=== PATIENT | female | born 2000 | race Caucasian/White ===

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

== ENCOUNTER 2020-01-01 06:45 | Emergency (ER) | payer MEDICAID, SELFPAY ==
[2020-01-01 06:49] VITALS: BP 145/77; PULSE 100; RESP 18; TEMP 37; O2SAT 100
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
== END 2020-01-01 07:11 | disposition home or self-care (01) ==
PROVIDERS: Emergency Provider Emergency Medicine
DX: S39.012A Strain of muscle, fascia and tendon of lower back, initial encounter (principal); V49.9XXA Car occupant (driver) (passenger) injured in unspecified traffic accident, initial encounter
CPT/HCPCS: 99283

== ENCOUNTER 2020-01-06 00:56 | Outpatient (CLI) | payer MEDICAID, SELFPAY ==
--- NOTE | 2020-01-06 06:15 | DI.US_ITS ---
EXAM: US PELVIS TRANSVAGINAL CLINICAL HISTORY: pelvic pain,r10.2 TECHNIQUE: Transabdominal and transvaginal imaging was performed using standard protocol. COMPARISON: No exams were available for comparison FINDINGS: KIDNEYS: Kidneys are symmetric in size. No evidence of renal calculi. No evidence of hydronephrosis. No renal mass or cyst identified. UTERUS: Anteverted. 7.1 x 2.7 x 5.5 cm Endometrium: 7 millimeters. A small amount of fluid is noted within the endometrial cavity. Myometrium: Unremarkable. Cervix: Unremarkable. OVARIES: Right: Cyst or mass: None. Left: Cyst or mass: Involuting corpus luteum cyst. DOPPLER: Color: Symmetric and uniform flow to both ovaries. No hyperemia. Duplex: Normal ovarian arterial waveforms visualized. CUL-DE-SAC: Free fluid: None. IMPRESSION: 1. Normal-appearing uterus. Small amount of fluid in the endometrial cavity. 2. Unremarkable bilateral ovaries. DATA REPOSITORY:
== END 2020-01-06 01:16 ==
PROVIDERS: Visit Provider Nurse Practitioner Women's Health
DX: R10.2 Pelvic and perineal pain (principal)
CPT/HCPCS: 76830; 76856

== ENCOUNTER 2023-11-17 15:51 | Observation (INO) | payer MEDICAID, SELFPAY ==
[2023-11-17 15:56] VITALS: BP 136/89; PULSE 95; RESP 18; TEMP 36.3; O2SAT 98
--- NOTE | 2023-11-17 16:09 | ED.GENADUL_ITS ---
Discharge Plan Disposition Patient Disposition: Admit to [facility] Condition: Stable Discharge Details Chief Complaint: POSTER Clinical Impression: Pelvic cramping, Currently Primary Care Provider: [facility] ED Provider: Benito Camilo [place] Meds and New Rx's Prescriptions: No Action Xulane 150-35 mcg/24 hr patch weekly 1 patch transdermal QWEEK Qty: 9 5RF Rx Instructions: apply once weekly for 3 weeks of a 4-week cycle naproxen 500 mg tablet 500 mg PO BID certirizine 10 mg 10 mg PO DAILY escitalopram oxalate 10 mg tablet 10 mg PO DAILY Qty: 30 3RF omeprazole 40 mg capsule,delayed release(DR/EC) 40 mg PO DAILY ondansetron 4 mg tablet,disintegrating 4 mg PO Q8H PRN (Reason: nausea and vomiting) Qty: 30 0RF acetaminophen [Tylenol] 325 mg Tablet 650 mg PO DIRECTED PRN ibuprofen 200 mg Tablet 400 mg PO PRN PRN cyclobenzaprine 10 mg tablet 10 mg PO TID PRN (Reason: muscle spasm) Qty: 20 0RF HPI General Mode of arrival: ambulatory . Date/Time Provider Initiated Documentation: 11/17/23 15:55 . Limitations to Documentation: no limitations . Information obtained by: patient . History of Present Illness 23 year old F presents to the emergency department with the chief complaint of mucous from vagina, described as moderate, Patient started experiencing this hour(s) (1) and it has been now resolved. No relieving factors improve symptom(s), No exacerbating factors reported . Patient notes no other symptoms.. Patient did receive the following treatments prior to arrival, none Related Data Home Medications ?Medication ?Instructions ?Recorded ?Confirmed certirizine 10 mg PO DAILY 11/26/18 12/31/19 naproxen 500 mg tablet 500 mg PO BID 11/26/18 12/31/19 acetaminophen 325 mg tablet 650 mg PO DIRECTED PRN 01/09/19 12/31/19 (Tylenol) ibuprofen 200 mg tablet 400 mg PO PRN PRN 03/27/19 12/31/19 escitalopram oxalate 10 mg tablet 10 mg PO DAILY #30 tabs 04/02/19 12/31/19 omeprazole 40 mg capsule,delayed 40 mg PO DAILY 05/07/19 12/31/19 release ondansetron 4 mg disintegrating 4 mg PO Q8H PRN nausea and 11/22/19 12/31/19 tablet vomiting #30 tabs cyclobenzaprine 10 mg tablet 10 mg PO TID PRN muscle spasm #20 01/01/20 tabs norelgestromin 150 mcg-e.estradiol 1 patch transdermal QWEEK #9 ea 02/05/20 02/05/20 35 mcg/24 hr weekly transderm patch (Xulane) Previous Rx's ?Medication ?Instructions ?Recorded escitalopram oxalate 10 mg tablet 10 mg PO DAILY #30 tabs 04/02/19 ondansetron 4 mg disintegrating 4 mg PO Q8H PRN nausea and 11/22/19 tablet vomiting #30 tabs cyclobenzaprine 10 mg tablet 10 mg PO TID PRN muscle spasm #20 01/01/20 tabs norelgestromin 150 mcg-e.estradiol 1 patch transdermal QWEEK #9 ea 02/05/20 35 mcg/24 hr weekly transderm patch (Xulane) Allergies Allergy/AdvReac Type Severity Reaction Status Date / Time latex Allergy Intermediate HIVES Verified 11/17/23 16:07 Sulfa (Sulfonamide Allergy Intermediate Hives Verified 11/17/23 16:07 Antibiotics) jalapenos Allergy Severe Unknown Uncoded 11/17/23 16:07 almonds Allergy Intermediate lips swell Uncoded 11/17/23 16:07 General Stated Complaint: POSTER MANI: 3 Review of Systems All systems reviewed & are unremarkable except as noted in HPI and below Constitutional Constitutional: Denies chills, Denies fever(s) and Denies weakness Cardiovascular Cardiovascular: Denies chest pain and Denies dyspnea Respiratory Respiratory: Denies cough and Denies dyspnea Gastrointestinal Gastrointestinal: Denies nausea and Denies vomiting Musculoskeletal Musculoskeletal: Denies joint swelling Neurologic Neurologic: Denies weakness Exam Const General: no acute distress Orientation: alert HENMT Head: normal to inspection Ears: external ears normal General nose exam: external nose normal Mouth: moist mucous membranes Eyes General: appearance normal, both eyes and all related structures Neck Neck: normal visual inspection Resp Effort & Inspection: normal respiratory effort and able to speak in complete sentences Cardio Rate: regular rate Skin General skin exam: no rashes or lesions noted Neuro General: patient alert and patient oriented x3 Extrem General: normal to inspection Psych Mental Status: mental status grossly normal Course Vital Signs Vital signs: Vital Signs Temperature 36.3 C L 08/30/24 15:56 Pulse 95 H 11/17/23 15:56 Respiratory Rate 18 11/17/23 15:56 Blood Pressure 136/89 11/17/23 15:56 Pulse Oximetry 98 11/17/23 15:56 Temperature 36.3 C L 11/17/23 15:56 Temperature Source Oral 11/17/23 15:56 Pulse 95 H 11/17/23 15:56 Respiratory Rate 18 11/17/23 15:56 Blood Pressure 136/89 11/17/23 15:56 Pulse Oximetry 98 11/17/23 15:56 Oxygen Delivery Method Room Air 11/17/23 15:56 Oxygen Flow Rate 0 11/17/23 15:56 Medical Decision Making 23-year-old female who states she is approximately 24 weeks and her due dates in February, recent moved here 2 weeks ago from [place] and does not have POSTER care here, comes in after she felt like a mucous plug came out of her vagina. She is also had some lower pelvic cramping. She denies any vaginal bleeding, otherwise feels well. She has no abdominal tenderness on bedside ultrasound has a live intrauterine with frequent movement of the baby. Unclear if this is labor, consult with Dr. Munroe from POSTER and plan of care with admit to labor and delivery for monitoring. Differential Diagnosis Differential Diagnosis: labor Quality:SDOH Health Related Social Needs: No Data to Display PFSH All Active Problems (Updated 11/17/23 @ 16:14 by Benito Camilo MD) Currently (Acute) Pelvic cramping (Acute) Anxiety (Chronic 04/20/16) restart SSRI. Depressed mood (Chronic 04/20/16) 04/02/19. 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 Increased symptoms with polyarthralgia spring 2017. Had f/u with rheum at [facility]. ? AIDAN vs RA. 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 (BMI) of 95th to 99th percentile for age in pediatric patient (Acute 09/15/11) Medical History (Updated 11/17/23 @ 16:14 by Benito Camilo MD) 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 Heart disease Father Essential hypertension Mental disorder DEPRESSION OR ANXIETY Myocardial infarction Social History Smoking/Tobacco Use Status: Current every day Tobacco Type: cigarettes Smoking packs per day: 1 Smoking cigarettes per day: 20.0 Tobacco: How many years used: 9 Quit status: considering quitting Smoking risk assessment performed?: Yes Alcohol Intake: current Alcohol Intake frequency: a few times a week Drug use: Daily Substance use type: marijuana Do you feel safe at home: Yes Do you feel safe in your relationship?: Yes History History 1 Para 0 Hx # Term Pregnancies 0 Multiple births Hx # Pregnancies Ectopic pregnancies AB induced Hx Number of Living Children AB spontaneous Past Pregnancies Del. Date GA/Weeks # Preg Succ Route Wgt Sex Labor Lgth Anesth esia Location [facility] 03/27/19 Delivery Date: 03/27/19 Last Updated by: Yari Villalobos LPN incomplete spontaneous AB with hemorrhage
[2023-11-17 16:33] VITALS: BP 127/63; PULSE 93
[2023-11-17 16:45] VITALS: BP 127/63; PULSE 88; RESP 16; TEMP 36.5; O2SAT 99
--- NOTE | 2023-11-17 17:31 | PGE_ITS ---
Date of Service Date of service: 11/17/23 Time of Service: 17:31 Assessment and Plan Assessment and plan (1) Currently : Status: Acute Qualifiers: Weeks of gestation: 24 weeks Qualified Code(s): Z3A.24 - 24 weeks gestation of (2) Vaginal discharge during : Status: Acute Assessment and plan: + Hyphae on wet mount. Vag path screen pending. I recommended that the pt use OTC Monistat 7. I will notify her if addtional medication is needed once vag path screen results are available. Qualifiers: Trimester: second trimester Qualified Code(s): O26.892 - Other specified related conditions, second trimester; N89.8 - Other specified noninflammatory disorders of vagina (3) Short interval between pregnancies affecting , antepartum: Status: Acute Assessment and plan: 13mo between pLTCS and JOSELUIS. (4) Hx of section: Status: Chronic Assessment and plan: for twin gestation at 37w. Single layer closure. Pt will be scheduled to establish care with MD service. Subjective Subjective Interval history since last seen: Vaginal discharge beginning today. Yellow, non-malodorous. Pt was concerned it was possible labor. Had been treated during this for vaginal candidiasis. Relocated to the area from [place] 2 weeks ago and has not yet established OB provider. She was initially eval in ED and sent to . course significant for closely spaced pregnancies with anticipated 13mo between deliveries. Exam Narrative Exam Narrative: L3 female who presents for eval of yellow tinged vaginal discharge. She identifies it as looking like a mucus plug. No contractions, mild uterine stretching. No vaginal bleeding. She is accompanied by her partner. Const General: no acute distress Nutritional Appearance: obese Orientation: alert, awake and oriented x3 Resp Effort & Inspection: normal respiratory effort External Female Exam: normal external appearance Speculum Exam - Vagina: normal appearance of the vagina, normal vaginal discharge (hyphae on wet mount. ROM+ and vaginal path screen obtained. results pending), not erythematous and No vaginal bleeding Speculum Exam - Cervix: No cervical os open Bimanual Exam- Vagina & Uterus: normal bimanual exam Bimanual Exam- Adnexa, other: non-tender OB/External & Speculum: external exam normal, No cervical os open, No vaginal bleeding and vaginal discharge Manual OB Exam: dilated (none), effaced 0%, station high and other (posterior and firm cervix) Skin General skin exam: no rashes or lesions noted Extrem General: normal to inspection Psych Appearance: grossly normal Mental Status: mental status grossly normal Speech and Movement: speech and movement normal Mood: congruent mood Affect: normal affect Attitude: cooperative Thought Process: normal Thought Content: normal Insight: insight good Judgment: judgment good Objective Last Vital Signs Temp 97.7 F 11/17/23 16:45 Pulse 88 11/17/23 16:45 Resp 16 11/17/23 16:45 BP 127/63 11/17/23 16:45 Pulse Ox 99 11/17/23 16:45 Time Spent with Patient Time Spent with Patient: <25 minutes Time was spent: preparing to see the patient(eg.review tests), obtaining and/or reviewing separately otained hiistory, ordering medications,tests, procedures, referring, communicating with other health critical care clinical nurse specialist and indepentently interpreting results
[2023-11-17 18:06] LABS: ROM Plus Negative
--- NOTE | 2023-11-21 08:19 | DSE_ITS ---
Date of service: 11/17/23 Time of Service: 18:00 DS: Diagnosis Discharge Diagnosis (1) Currently : Status: Acute (2) Vaginal discharge during : Status: Acute (3) Short interval between pregnancies affecting , antepartum: Status: Acute (4) Hx of section: Discharge Plan Disposition Patient Disposition: Home Condition: Good Discharge Details Reason For Visit: ? labor Admit Date/Time: 11/17/23 16:15 Admit Provider: Heather Munroe Attending Provider: Heather Munroe [facility] Course: L3 female who presented for eval of yellow tinged vaginal discharge. She identified it as looking like a mucus plug. No contractions, mild uterine stretching. No vaginal bleeding. ROM plus neg, Vag path screen neg. Pt recently relocated to [place] from [place]. Has not yet initiated care. Home Meds and New Rx's Prescriptions: No Action Xulane 150-35 mcg/24 hr patch weekly 1 patch transdermal QWEEK Qty: 9 5RF Rx Instructions: apply once weekly for 3 weeks of a 4-week cycle naproxen 500 mg tablet 500 mg PO BID certirizine 10 mg 10 mg PO DAILY escitalopram oxalate 10 mg tablet 10 mg PO DAILY Qty: 30 3RF omeprazole 40 mg capsule,delayed release(DR/EC) 40 mg PO DAILY ondansetron 4 mg tablet,disintegrating 4 mg PO Q8H PRN (Reason: nausea and vomiting) Qty: 30 0RF acetaminophen [Tylenol] 325 mg Tablet 650 mg PO DIRECTED PRN ibuprofen 200 mg Tablet 400 mg PO PRN PRN cyclobenzaprine 10 mg tablet 10 mg PO TID PRN (Reason: muscle spasm) Qty: 20 0RF Discharge Instructions Additional Instructions: Call [facility] on 11/21/23 to make an appt to establish care. Activity:: Activity as Tolerated Equipment/Supplies:: No Equipment Needed Diet:: As Tolerated Discharge Orders Discharge Orders: Discharge Order (Routine); Ordered 11/17/23 Ordered By: Heather Munroe Discharge Data Discharge Date/Time-TO BE ENTERED AT DEPARTURE: 11/17/23 18:45 DS: Summary Time Spent with Patient providing and/or coordinating discharge services: Greater than 30 minutes Status at Discharge Functional status at discharge: independent ambulation Overall status at discharge: patient is back to baseline Mental Status: mental status grossly normal Speech and Movement: speech and movement normal Mood: congruent mood Affect: normal affect Quality:SDOH Health Related Social Needs: No Data to Display Exam Narrative Exam Narrative: L3 female who presents for eval of yellow tinged vaginal discharge. She identifies it as looking like a mucus plug. No contractions, mild uterine s tretching. No vaginal bleeding. She is accompanied by her partner. Const General: no acute distress Nutritional Appearance: obese Orientation: alert, awake and oriented x3 Resp Effort & Inspection: normal respiratory effort External Female Exam: normal external appearance Speculum Exam - Vagina: normal appearance of the vagina, normal vaginal discharge (hyphae on wet mount. ROM+ and vaginal path screen obtained. results pending), not erythematous and No vaginal bleeding Speculum Exam - Cervix: No cervical os open Bimanual Exam- Vagina & Uterus: normal bimanual exam Bimanual Exam- Adnexa, other: non-tender OB/External & Speculum: external exam normal, No cervical os open, No vaginal bleeding and vaginal discharge Manual OB Exam: dilated (none), effaced 0%, station high and other (posterior and firm cervix) Skin General skin exam: no rashes or lesions noted Extrem General: normal to inspection Psych Appearance: grossly normal Mental Status: mental status grossly normal Speech and Movement: speech and movement normal Mood: congruent mood Affect: normal affect Attitude: cooperative Thought Process: normal Thought Content: normal Insight: insight good Judgment: judgment good DS: Data Vitals/I&O Vitals and I&O: Vital Signs Temperature 97.7 F 11/17/23 16:45 Temperature Source Oral 11/17/23 15:56 Pulse 88 11/17/23 16:45 Respiratory Rate 16 11/17/23 16:45 Respiratory Effort Normal, Non-Labored 11/17/23 16:22 Blood Pressure 127/63 11/17/23 16:45 Pulse Oximetry 99 11/17/23 16:45 Oxygen Delivery Method Room Air 11/17/23 16:45 Oxygen Flow Rate 0 11/17/23 16:45 Pain Level 0 11/17/23 16:45 Data Completed and Pending Completed studies during hospitalization [Text1]: Vag path screen: Neg x3. ROMplus: Neg. PFSH All Active Problems (Updated 11/21/23 @ 08:35 by Heather Munroe MD) Short interval between pregnancies affecting , antepartum (Acute) 13mo interval after pLTCS for twin gestation. Vaginal discharge during (Acute) Currently (Acute) JOSELUIS 03/03/25. Pelvic cramping (Acute) Anxiety (Chronic 04/20/16) restart SSRI. Depressed mood (Chronic 04/20/16) 04/02/19. 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 Increased symptoms with polyarthralgia spring 2017. Had f/u with rheum at [facility] [place] [place]. ? AIDAN vs RA. 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 pLTCS for twin gestation at 37w. Single layer closure. History of tonsillectomy and adenoidectomy 2018 Arthroscopy L knee - effusion, bloody 08/28, 11/28, & 1 more R knee 2011, Family History Mother Mental disorder depression Asthma Sister Asthma Other Diabetes many materanl relatives Hyperlipidemia maternal cousin Mental disorder maternal relatvies with depresssion Attention deficit hyperactivity disorder maternal uncles Other Diabetes many paternal relatives Mental disorder pat side with depression Grandfather , [place] at age 44. Heart disease Father Essential hypertension Mental disorder DEPRESSION OR ANXIETY Myocardial infarction Social History Smoking/Tobacco Use Status: Current every day Tobacco Type: cigarettes Smoking packs per day: 1 Smoking cigarettes per day: 20.0 Tobacco: How many years used: 9 Quit status: considering quitting Smoking risk assessment performed?: Yes Alcohol Intake: current Alcohol Intake frequency: a few times a week Drug use: Daily Substance use type: marijuana Housing: apartment Do you feel safe at home: Yes Do you feel safe in your relationship?: Yes Additional Social history: just moved from [place] History History 1 Para 0 Hx # Term Pregnancies 0 Multiple births Hx # Pregnancies Ectopic pregnancies AB induced Hx Number of Living Children AB spontaneous Past Pregnancies Del. Date GA/Weeks # Preg Succ Route Wgt Sex Labor Lgth Anesth esia Location Prov Complic 03/27/19 Delivery Date: 03/27/19 Last Updated by: Yari Villalobos LPN incomplete spontaneous AB with hemorrhage Time Spent with Patient Time Spent with Patient: <45 minutes Time was spent: preparing to see the patient(eg.review tests), obtaining and/or reviewing separately otained hiistory, ordering medications,tests, procedures, counseling the patient and care coordination
== END 2023-11-17 18:45 | disposition home or self-care (01) ==
LOC: ER 16:28 → OBS 16:30
PROVIDERS: Admitting Provider Obstetrics & Gynecology Gynecology; Emergency Provider Emergency Medicine; Visit Provider Obstetrics & Gynecology Gynecology
DX: O26.892 Other specified pregnancy related conditions, second trimester (principal); Z3A.24 24 weeks gestation of pregnancy; N89.8 Other specified noninflammatory disorders of vagina; Z98.891 History of uterine scar from previous surgery; O09.892 Supervision of other high risk pregnancies, second trimester; O99.212 Obesity complicating pregnancy, second trimester; E66.9 Obesity, unspecified; Z79.899 Other long term (current) drug therapy
CPT/HCPCS: 84112; 59025; 87480; 87510; 87660

== ENCOUNTER 2023-12-15 02:17 | Outpatient (CLI) | payer MEDICAID, SELFPAY ==
--- OUTSIDE RECORDS SUMMARY | 2023-12-15 02:22 | XMS_ITS | Encounter Summary ---
Author Organization [facility] [place] [address] Care Team Providers Care Check Writer Name Role Phone None Primary Care Provider Unavailabl e Reason for Referral * Consultation (Urgent) - Authorized Specialty Diagnoses / Procedures Referred By Jack sherman Referred To Contact Obstetrics and Gynecology Diagnoses Morbid (severe) obesity due to excess calories Supervision of other high risk pregnancies, unspecified trimester History of uterine scar from previous surgery (new MFM Form w/level II order) detail morph SHEN Procedures US Requested Winsome Pugh MD [address] [place] [address] [place] [address] [facility] Consulting Solution Director [address] [place] [address] Referral ID Status Reason Start Date Expiration Date Visits Requested Visits Authorized [id number] Authorized Consult, Test & Treat PCP Updated and/or Approved 12/08/2023 06/06/2024 6 6 Encounter Details Date Type Department Care Team (Late st Contact Info) Description 12/12/2023 Transcribe Orders eDH Incoming Referrals [phone] Winsome Pugh MD [address] [place] [address] [address] [place], [place] [id number] Morbid (severe) obesity due to excess calories; Supervision of other high risk pregnancies, unspecified trimester; History of uterine scar from previous surgery Social History Tobacco Use Types Packs/Day Years Used Date Smoking Tobacco: Every Day Cigarettes Smokeless Tobacco: Never Comments:smokes a couple cig arettes a day Alcohol Use Standard Drinks/Week Comments No 0 (1 standard drink = 0.6 oz pur e alcohol) Sex and Gender Information Value Date Recorded Sex Assigned at Not on file Gender Identity Not on file Sexual Orientation Not on file documented as of this encounter Plan of Treatment Scheduled Referrals Name Type Priority Associated Diagnoses Orde r Schedule Referral to Maternal Medicine Outpatient Referral Urgent Morbid (severe) obesity due to excess calories Supervision of other high risk pregnancies, unspecified trimester History of uterine scar from previous surgery Ordered: 12/12/2023 documented as of this encounter Visit Diagnoses Diagnosis Morbid (severe) obesity due to excess calories Supervision of other high risk pregnancies, unspecified trimester History of uterine scar from previous surgery documented in this encounter Care Teams Check Writer Relationship Specialty Start Date End Date None None PCP - General 12/12/23 documented as of this encounter
--- OUTSIDE RECORDS SUMMARY | 2023-12-15 02:22 | XMS_ITS | Encounter Summary ---
Author Organization [facility] [place] [address] Care Team Providers Care Informatics Nurse Name Role Phone Mauri Villar MD Primary Care Provider [phone] Reason for Visit * Reason Onset Date Comments Other 09/05/2017 Lab Results Encounter Details Date Type Department Care Team (Late st Contact Info) Description 09/05/2017 Telephone [place] [id number] Zane Chaves RN Other (Lab Results) Social History Tobacco Use Types Packs/Day Years Used Date Smoking Tobacco: Every Day Smokeless Tobacco: Never Comments:smokes a couple cig arettes a day Alcohol Use Standard Drinks/Week Comments No 0 (1 standard drink = 0.6 oz pur e alcohol) Sex and Gender Information Value Date Recorded Sex Assigned at Not on file Gender Identity Not on file Sexual Orientation Not on file documented as of this encounter Miscellaneous Notes * Telephone Encounter - Zane Chaves RN - 09/06/2017 8:12 AM EDT I discussed labs with Dr. Thorne and he would like a Urine Culture to make sure Samreen does not have a UTI. Called Lab and they are not able to send for culture as specimen has been disposed of. Called Mom Winsome to advise a urine specimen is needed, she would like sent to [facility]. Will order and send. Mom also reports that Samreen had a bad reaction to the Diclofenac so she has stopped taking it. She had N/V and HTN. She was evaluated in the ER. Symptoms have resolved since stopping Diclofenac. * Telephone Encounter - Zane Chaves RN - 09/05/2017 1:46 PM EDT Mom Winsome calls for lab results. BERNY positive with 1:320 titer, urine is also abnormal. Will ask Dr. Thorne for his recommendations when calling Mom back. documented in this encounter Plan of Treatment Not on file documented as of this encounter Visit Diagnoses Diagnosis AIDAN (juvenile idiopathic arthritis)- Primary Other specified inflammatory polyarthropathies documented in this encounter Care Teams Informatics Nurse Relationship Specialty Start Date End Date Mauri Villar MD [address] [place] [address] [place] [address] PCP - General Pediatrics 07/28/17 12/11/23 documented as of this encounter
--- OUTSIDE RECORDS SUMMARY | 2023-12-15 02:22 | XMS_ITS | Encounter Summary ---
Author [place] [address] Care Team Providers Care Consumer Banker Name Role Phone Ros Bean MD Primary Care Provider [phone] Encounter Details Date Type Department Care Team (Late st Contact Info) Description 01/28/2016 [place] [address] Cole Moreno MD [facility] [place] [address] Pain in left wrist Social History Tobacco Use Types Packs/Day Years Used Date Smoking Tobacco: Passive Smo ke Exposure - Never Smoker Smokeless Tobacco: Never Comments:Adults smoke outsid e Alcohol Use Standard Drinks/Week Comments No 0 (1 standard drink = 0.6 oz pur e alcohol) Sex and Gender Information Value Date Recorded Sex Assigned at Not on file Gender Identity Not on file Sexual Orientation Not on file documented as of this encounter Plan of Treatment Not on file documented as of this encounter Visit Diagnoses Diagnosis Pain in left wrist Pain in joint, forearm documented in this encounter Care Teams Consumer Banker Relationship Specialty Start Date End Date Ros Bean MD PCP - General Pediatrics 07/17/15 07/27/17 documented as of this encounter
--- OUTSIDE RECORDS SUMMARY | 2023-12-15 02:22 | XMS_ITS | Encounter Summary ---
Author Organization [facility] Address [facility] [place] [address] Care Team Providers Care Hired Help Name Role Phone Mauri Villar MD Primary Care Provider [phone] Encounter Details Date Type Department Care Team (Latest Contact Info) Description 08/01/2018 2:17 PM EDT - 08/01/2018 11:59 PM EDT Hospital Encounter XRay at [address] [place] [address] Benito Zhang MD [facility] [place] [address] Chronic pain of left knee Discharge Disposition: Home Social History Tobacco Use Types Packs/Day Years [...] on file documented as of this encounter Medications at Time of Discharge Medication Sig Dispensed Refills Start Date End Date sertraline (ZOLOFT) 100 mg TabletIndications:Effu candido of knee joint, left Take 2 tablets by mouth daily. 90 tablet 3 12/01/2017 methylphenidate HCl (CONCERTA) 27 mg Tablet Extended Rel 24 hrIndications:Effusion of knee joint, left Take 1 tablet by mouth every morning. 90 tablet 12/01/2017 naproxen (EC NAPROSYN) 500 mg Tablet, Delayed Release (E.C.)Indications:Effu candido of knee joint, left Take 1 tablet by mouth 2 times daily (with meals). 60 tablet 3 12/01/2017 predniSONE (DELTASONE) 5 mg TabletIndications:AIDAN (juvenile idiopathic arthritis) Take 2 tablets by mouth daily. 60 tablet 3 07/28/2017 FLUoxetine (PROZAC) 10 mg Capsule Take 10 mg by mouth daily. traZODone (DESYREL) 50 mg Tablet Take 50 mg by mouth nightly. meloxicam (MOBIC) 15 mg TabletIndications:AIDAN (juvenile idiopathic arthritis) Take 1 tablet by mouth daily. 30 tablet 12 09/02/2015 etonogestrel (NEXPLANON) 68 mg Implant by Subdermal route Continuous (Device). 12/02/2019 documented as of this encounter Plan of Treatment Not on file documented as of this encounter Procedures Procedure Name Priority Date/Time Associated Diagnosis Comments XR KNEE 4 OR MORE VIEWS LEFT Routine 08/01/2018 2:35 PM EDT Chronic pain of left knee documented in this encounter Results * XR Knee 4 or more views Left (08/01/2018 2:35 PM EDT) Anatomical Region Laterality Modality Knee Left Digital Radiogra phy Impressions 08/01/2018 3:02 PM EDT Slight lateral tibial subluxation. No hardware related complication. Thank you for letting us participate in the care of this patient. For questions regarding this report, please contact the number below. ? Narrative 08/01/2018 3:02 PM EDT EXAMINATION: XR KNEE 4 OR MORE VIEWS LEFT CLINICAL HISTORY: left knee pain TECHNIQUE: 4 views LEFT knee COMPARISON: AP view that includes the left knee dated 01/12/2012. FINDINGS: There are two threaded screws running frontal back through the proximal left tibia just below the level of the anterior tibial tubercle. No fracture is seen. On the AP and PA Savage views, there is several millimeters of lateral subluxation of the proximal tibia relative to the distal femur. There is a small osteophyte at the lateral articular surface of the distal femur. No definite joint effusion. Procedure Note Sahil Guy MD - 08/01/2018 EXAMINATION: XR KNEE 4 OR MORE VIEWS LEFT CLINICAL HISTORY: left knee pain TECHNIQUE: 4 views LEFT knee COMPARISON: AP view that includes the left knee dated 01/12/2012. FINDINGS: There are two threaded screws running frontal back through the proximalleft tibia just below the level of the anterior tibial tubercle. No fracture isseen. On the AP and PA Savage views, there is several millimeters oflateral subluxation of the proximal tibia relative to the distal femur. There is asmall osteophyte at the lateral articular surface of the distal femur. Nodefinite joint effusion. IMPRESSION Slight lateral tibial subluxation. No hardware related complication. Thank you for letting us participate in the care of this patient. Forquestions regarding this report, please contact the number below. Benito Zhang MD IMG DX ORDERABLES documented in this encounter Visit Diagnoses Diagnosis Chronic pain of left knee Pain in joint, lower leg documented in this encounter Care Teams Hired Help Relationship Specialty Start Date End Date [place] [address] PCP - General Pediatrics 07/28/17 12/11/23 documented as of this encounter
--- OUTSIDE RECORDS SUMMARY | 2023-12-15 02:22 | XMS_ITS | Encounter Summary ---
Author Organization Pending [facility] To [facility] Address [facility] [place] [address] Care Team Providers Care Welder Assistant Name Role Phone Ros Bean MD Primary Care Provider [phone] Encounter Details Date Type Department Care Team (Latest Contact Info) Description 09/02/2015 2:52 PM EDT - 09/02/2015 11:59 PM EDT Hospital Encounter XRay at [address] [place] [address] Hema Thorne MD [facility] [place] [address] AIDAN (juvenile idiopathic arthritis) Discharge Disposition: Home Social History Tobacco Use [...] Sig Dispensed Refills Start Date End Date meloxicam (MOBIC) 15 mg TabletIndications:AIDAN (juvenile idiopathic arthritis) Take 1 tablet by mouth daily. 30 tablet 12 09/02/2015 human papillomavirus 4-valent, PF, (GARDASIL) 20-40-40-20 mcg/0.5 mL Suspension Once 12/18/2012 10/21/2015 norgestimate-ethinyl estradiol (SPRINTEC-28) 0.25-35 mg-mcg Tablet Daily 11/14/20142015 norelgestrom-ethinyl estradiol (XULANE) 150-35 mcg/24 hr Patch Weekly weekly 07/14/201507/01 acetaminophen (TYLENOL) 325 mg Tablet Take 2 tablets by mouth every 6 hours. 30 tablet 1 09/09/2014 07/01/2016 documented as of this encounter Plan of Treatment Not on file documented as of this encounter Procedures Procedure Name Priority Date/Time Associated Diagnosis Comments XR HANDS MIN 3 VIEWS BILAT Routine 09/02/2015 3:03 PM EDT AIDAN (juvenile idiopathic arthritis) documented in this encounter Results * XR Bilateral Hands Minimum 3 Views (09/02/2015 3:03 PM EDT) Anatomical Region Laterality Modality Hand Bilateral Digital Radiogra phy Impressions 09/02/2015 4:53 PM EDT The sclerotic collapsed lunate at the right wrist has an appearance consistent with lunatomalacia or Kienbock's disease. The presence of ulnar minus predisposes both the right and left wrist to this disorder. With the exception of diffuse soft tissue swelling, I do not see other evidence of juvenile idiopathic arthritis. Narrative 09/02/2015 4:53 PM EDT EXAMINATION: XR BILATERAL HANDS MINIMUM 3 VIEWS CLINICAL HISTORY: AIDAN right wrist pain TECHNIQUE: 4 views of the hands and wrists were acquired bilaterally. COMPARISON: None FINDINGS: There is ulnar minus configuration bilaterally associated with a mild degree of degenerative arthropathy. At the right wrist there is collapse and sclerosis of the lunate. The carpus is otherwise normal in appearance. No erosive disease is identified. The lunate at the left wrist is normal. On the lateral view there appears to be soft tissue prominence diffusely of the dorsum of the hand in a symmetric fashion bilaterally. It do not see focal soft tissue swelling. At the metacarpal phalangeal joints no joint space narrowing malalignment or erosive disease is identified. There is a solitary radial lucency at the base of the index proximal phalanx of the right hand. I believe this represents a small subchondral cyst. No definite erosive disease is apparent. At the interphalangeal joints alignment is normal. No erosive disease is seen. No periostitis. No acro osteolysis. Procedure Note Osman Mcallister MD - 09/02/2015 EXAMINATION: XR BILATERAL HANDS MINIMUM 3 VIEWS CLINICAL HISTORY: AIDAN right wrist pain TECHNIQUE: 4 views of the hands and wrists were acquired bilaterally. COMPARISON: None FINDINGS: There is ulnar minus configuration bilaterally associated with a milddegree of degenerative arthropathy. At the right wrist there is collapse and sclerosis of the lunate. Thecarpus is otherwise normal in appearance. No erosive disease is identified. Thelunate at the left wrist is normal. On the lateral view there appears to be soft tissue prominence diffuselyof the dorsum of the hand in a symmetric fashion bilaterally. It do not see focalsoft tissue swelling. At the metacarpal phalangeal joints no joint space narrowing malalignmentor erosive disease is identified. There is a solitary radial lucency at thebase of the index proximal phalanx of the right hand. I believe this represents asmall subchondral cyst. No definite erosive disease is apparent. At the interphalangeal joints alignment is normal. No erosive disease is seen. No periostitis. No acro osteolysis. IMPRESSION The sclerotic collapsed lunate at the right wrist has an appearanceconsistent with lunatomalacia or Kienbock's disease. The presence of ulnar minus predisposes both the right and left wrist to this disorder. With the exception of diffuse soft tissue swelling, I do not see otherevidence of juvenile idiopathic arthritis. Hema Thorne MD IMG DX ORDERABLES documented in this encounter Visit Diagnoses Diagnosis AIDAN (juvenile idiopathic arthritis) Other specified inflammatory polyarthropathies documented in this encounter Care Teams Welder Assistant Relationship Specialty Start Date End Date Ros Bean MD PCP - General Pediatrics 07/17/15 07/27/17 documented as of this encounter
--- OUTSIDE RECORDS SUMMARY | 2023-12-15 02:22 | XMS_ITS | Encounter Summary ---
Author Organization [facility] Address [facility] [place] [address] Care Team Providers Care Apparel Manager Name Role Phone Ros Bean MD Primary Care Provider [phone] Encounter Details Date Type Department Care Team (Late st Contact Info) Description 06/24/2016 [place] [address] Cole Moreno MD [facility] [place] [address] Pain in right wrist Social History Tobacco Use Types Packs/Day [...] on file documented as of this encounter Results * XR Wrist Complete Min 3 views Right (Generic) (07/01/2016 3:30 PM EDT) Anatomical Region Laterality Modality Right Digital Radiogra phy Impressions 07/01/2016 3:38 PM EDT 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 No definite new osseous findings. Narrative 07/01/2016 3:38 PM EDT EXAMINATION: XR WRIST COMPLETE MIN 3 VIEWS RIGHT (GENERIC) CLINICAL HISTORY: right wrist pain TECHNIQUE: 3 views of the right wrist. COMPARISON: 01/29/2016. FINDINGS: The osseous structures are unchanged in alignment. As before, the lunate is flattened, deformed, and sclerotic, consistent with Kienbock's disease no definite new osseous abnormality of the carpal bones is identified. Ulnar negative variance, as before. The other imaged osseous structures are not appreciably changed. Procedure Note Giovanna Bustamante MD - 07/01/2016 EXAMINATION: XR WRIST COMPLETE MIN 3 VIEWS RIGHT (GENERIC) CLINICAL HISTORY: right wrist pain TECHNIQUE: 3 views of the right wrist. COMPARISON: 01/29/2016. FINDINGS: The osseous structures are unchanged in alignment. As before,the lunate is flattened, deformed, and sclerotic, consistent with Kienbock'sdisease no definite new osseous abnormality of the carpal bones is identified.Ulnar negative variance, as before. The other imaged osseous structures arenot appreciably changed. 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 Nodefinite new osseous findings. Cole Moreno MD IMG DX ORDERABLES documented in this encounter Visit Diagnoses Diagnosis Pain in right wrist Pain in joint, forearm Pain in right wrist Pain in joint, forearm documented in this encounter Care Teams Apparel Manager Relationship Specialty Start Date End Date Ros Bean MD PCP - General Pediatrics 07/17/15 07/27/17 documented as of this encounter
--- OUTSIDE RECORDS SUMMARY | 2023-12-15 02:22 | XMS_ITS | Encounter Summary ---
Author Organization [facility] Address [facility] [address] [place] [id number] Care Team Providers Care County Assessor Name Role Phone Mauri Villar MD Primary Care Provider [phone] Reason for Referral * Consultation (Routine) - Specialty Diagnoses / Procedures Referred By Jack sherman Referred To Contact Diagnoses Effusion of knee joint, left Hema Thorne MD [facility] [place] [address] Referral ID Status Reason Start Date Expiration Date V isits Requested Visits Authorized [id number] Consult, Test & Treat 12/01/2017 2018 1 1 Reason for Visit * Reason Comments Follow-up Encounter Details Date Type Department Care Team (Latest Contact Info) Description 12/01/2017 1:00 PM EDT Office Visit Pediatric Rheumatology at [place] [phone] Hema Thorne MD [facility] [place] [address] Effusion of knee joint, left Social History Tobacco Use Types Packs/Day Years [...] on file documented as of this encounter Last Filed Vital Signs Vital Sign Reading Time Taken Comments Blood Pressure 122/67 12/01/2017 1:13 PM EDT Pulse 90 12/01/2017 1:13 PM EDT Temperature - - Respiratory Rate - - Oxygen Saturation - - Inhaled Oxygen Concentration - - Weight 93.9 kg (207 lb) 12/01/2017 1:13 PM EDT Height 160 cm (5' 3) 12/01/2017 1:13 PM EDT Body Mass Index 36.67 12/01/2017 1:13 PM EDT Body Mass Index Percentile 98.31% 12/01/2017 1:1 3 PM EDT Growth Chart: [facility] (Girls, 2- 20 Years) documented in this encounter Progress Notes * Hema Thorne MD - 12/01/2017 1:00 PM EDT Is a follow-up appointment for Samreen Martinez birthdate 2000 The patient is a 17-year-old female with a history of J I/A treated only with nonsteroidal anti-inflammatory drugs will have seen intermittently the last time in August at which time she had synovitis at the MCPs wrists elbows knees and ankles. I placed her on prednisone which was ineffective and then switched her to diclofenac diclofenac was not tolerated she developed hives hypertensionand she describes a panic attack currently she is on no nonsteroidal On exam she is healthy-appearing but overweight blood pressure is 122/67 her BMI probably 37-40 although not sure the scale is correct because according to it her weight dropped 17 pounds since her previous visit Her chest is clear heart exam is unremarkable her abdomen is obese her extremities she appears to have synovitis of her right wrist and both knees with swelling heat and tenderness Laboratory data was notable for positive BERNY at 1-320 negative ROSA M normal complements but her urineanalysis showed large white blood cells I repeat her urine with a culture GC and Chlamydia I put her on Naprosyn 500 twice daily enteric-coated and she will try to drink milk at the time she takes it all follow-up in 1 month documented in this encounter Plan of Treatment Pending Results Name Type Priority Associated Diagnoses Date /Time GC/Chlamydia (Leb/CGP) Urine Microbiology Routine Effusion of knee joint, left 12/01/2017 8:48 PM EDT Scheduled Referrals Name Type Priority Associated Diagnoses Orde r Schedule Referral to Hand Clinic Outpatient Referral Routine Effusion of knee joint, left Ordered: 12/01/2017 documented as of this encounter Visit Diagnoses Diagnosis Effusion of knee joint, left Effusion of lower leg joint documented in this encounter Care Teams County Assessor Relationship Specialty Start Date End Date Mauri Villar MD [address] [place] [address] PCP - General Pediatrics 07/28/17 12/11/23 documented as of this encounter
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
--- OUTSIDE RECORDS SUMMARY | 2023-12-15 02:22 | XMS_ITS | Encounter Summary ---
[place] [address] Care Team Providers Care Range Aide Name Role Phone Mauri Villar MD Primary Care Provider [phone] Reason for Referral * Diagnostic Test (Routine) - Closed Specialty Diagnoses / Procedures Referred By Jack sherman Referred To Contact Radiology Diagnoses Internal derangement of left knee Procedures MRI Knee wo Contrast Left (Generic) Benito Zhang MD [facility] [place] [address] [facility] [place] [address] Referral ID Status Reason Start Date Expiration Date V isits Requested Visits Authorized [id number] Closed Specialty Service Requested 08/01/2018 08/01/2019 1 1 Reason for Visit * Reason Comments Follow-up left knee pain, recu rrent patellar subluxation * Consultation (Routine) - Closed Specialty Diagnoses / Procedures Referred By Jack sherman Referred To Contact Orthopaedics Diagnoses PAIN LEFT KNEE, RECURRENT PATELLAR SUBLUXATION Mauri Villar MD [address] [place] [address] [place] [address] [facility] [address] [place] [phone] Referral ID Status Reason Start Date Expiration Date V isits Requested Visits Authorized [id number] Closed Consult, Test & Treat Connection Center 07/25/2018 07/25/2019 1 1 Encounter Details Date Type Department Care Team (Late st Contact Info) Description 08/01/2018 3:20 PM EDT Office [place] [phone] Clinic, Dr Zhang Team None Internal derangement of left knee Social History Tobacco Use Types Packs/Day Years [...] Sign Reading Time Taken Comments Blood Pressure 131/78 08/01/2018 3:33 PM EDT Pulse 78 08/01/2018 3:33 PM EDT Temperature - - Respiratory Rate - - Oxygen Saturation - - Inhaled Oxygen Concentration - - Weight 95.3 kg (210 lb) 08/01/2018 3:33 PM EDT m easured Height 160 cm (5' 3) 08/01/2018 3:33 PM EDT Body Mass Index 37.2 08/01/2018 3:33 PM EDT Body Mass Index Percentile 98.26% 08/01/2018 3:3 3 PM EDT Growth Chart: CDC (Girls, 2- 20 Years) documented in this encounter Progress Notes * Benito Zhang MD - 08/01/2018 3:20 PM EDT Subjective: Patient ID: Samreen Martinez is a 18 y.o. female. Chief Complaint Patient presents with ??? Follow-up left knee pain, recurrent patellar subluxation ?? Date of Surgery: 09/08/14 PROCEDURES PERFORMED: Left knee diagnostic arthroscopy, left knee Benito osteotomy with lateral release Date of surgery: 02/10/14 Surgery: Right tibia Benito osteotomy, repair of dislocating patella, knee arthroscopy for removal of loose body ?? Case Date: 02/13/2012 Procedure(s): RIGHT KNEE ARTHROSCOPY KNEE REMOVE LOOSE BODY ARTHROTOMY, KNEE WITH EXPLORATION REPAIR DISLOCATING PATELLA MICROFRACTURE TROCHLEA HPI Left knee is bothering her. Swollen a couple weeks ago. Lateral pain up to her hip. She is bothered by this. She has not had any recurrent dislocations. Patient Active Problem List Diagnosis Code ??? Effusion of knee joint, left M25.462 ??? Effusion of knee joint M25.469 ? ? R knee arthroscopy, microfracture & medial patellar realignment procedure 02/12 Vicente S83.003A ??? Knee pain, right M25.561 ??? 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 s/p left knee Benito osteotomy and lateral release 09/08/14 (Zhang) M22.02 ??? AIDAN (juvenile idiopathic arthritis) M08.90 ??? 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 Latex Hives ??? Unable To Find [Unclassified Drug] Anaphylaxis jalapeno ??? [place] Rash Rash/ lips swell ??? Diclofenac Nausea and hypertension ??? Sulfa (Sulfonamide Antibiotics) Rash Current Outpatient Medications on File Prior to Visit Medication Sig Dispense Refill ??? etonogestrel (NEXPLANON) 68 mg Implant by Subdermal route Continuous (Device). ??? sertraline (ZOLOFT) 100 mg Tablet Take [...] Reported on 08/01/2018) 60 tablet 3 ??? [DISCONTINUED] Diclofenac Sodium (VOLTAREN XR) 100 mg Tablet Sustained Release 24 hr Take 1 tablet by mouth daily. (Patient not taking: Reported on 12/01/2017) 30 tablet 3 ??? predniSONE (DELTASONE) 5 mg Tablet Take 2 tablets by mouth daily. (Patient not taking: Reportedon 12/01/2017) 60 tablet 3 ??? FLUoxetine (PROZAC) 10 mg Capsule Take 10 mg by mouth daily. ??? traZODone (DESYREL) 50 mg Tablet Take 50 mg by mouth nightly. ??? [DISCONTINUED] cetirizine (ZYRTEC) 10 mg Tablet Take 10 mg by mouth daily. ??? [DISCONTINUED] norgestimate-ethinyl estradiol (SPRINTEC, 28,) 0.25-35 mg-mcg Tablet Take 1 tablet by mouth daily. ??? meloxicam (MOBIC) 15 mg Tablet Take 1 tablet by mouth daily. (Patient not taking: Reported on 07/28/2017) 30 tablet 12 No current facility-administered medications on file prior to visit. Review of Systems General Health, Prior Treatments, PreExisting Condition, Health Habits, About You 08/01/2018 PROMIS-10 General Health Good PROMIS-10 Quality of Life Good PROMIS-10 Physical Health Good PROMIS-10 Mental Health Fair PROMIS-10 Social Activity Good PROMIS-10 Everyday Activities Mostly PROMIS-10 Pain 6 PROMIS-10 Fatigue Mild PROMIS-10 Social Roles Good PROMIS-10 Anxious or Depressed Sometimes PROMIS PHYSICAL SCORE (range 16-68) 44.9 PROMIS MENTAL SCORE (range 21-68) 41.1 Treatments Tried Heat and ice therapy, Physical therapy, Acetaminophen (e.g. Tylenol), Over the counter anti-inflammatory drugs (e.g Advil, Aspirin, Aleve), Prescribed anti-inflammatory drugs, Other injections or needle procedures, Prior surgery for this problem No flowsheet data found. No flowsheet data found. Objective: Physical Exam Musculoskeletal: Left knee: She exhibits no effusion. Blood pressure 131/78, pulse 78, height 160 cm (5' 3), weight 95.3 kg (210 lb). Left Knee Exam Tenderness The patient is experiencing tenderness in the lateral joint line (IT Band Tenderness). Range of Motion Extension: 0 Flexion: 140 Tests Varus: negative Valgus: negative Daniel: Anterior - negative Drawer: Anterior - negative Posterior - negative Patellar apprehension: negative Other Erythema: absent Scars: present Sensation: decreased Pulse: present Swelling: mild Effusion: no effusion present Imaging: fairly benign appearing knee studies. Assessment and Plan: LEFT KNEE PAIN Discussed her history and her findings Discussed chondral assessment through and MR. We will see her back after her MR. SHe has had severe chondral pathology since a young child. documented in this encounter Plan of Treatment Not on file documented as of this encounter Results * MRI Knee wo Contrast Left (Generic) (08/22/2018 8:23 AM EDT) Anatomical Region Laterality Modality Knee Left Magnetic Resonan ce Impressions 08/22/2018 9:45 AM EDT 1. ??No focal complication following Fulkersonosteotomy. The osteotomy has healed. 2. 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 3. ??At the level of the patient's femoral trochlear injury and subsequent microfracture the deformity is well-defined and appears to be filled with scar cartilage. No edema, cyst formation or other evidence of acute injury or complication is seen. I have personally reviewed the image(s) and the residents interpretation and agree with the findings, Osman Mcallister at 08/22/2018 9:45 AM Thank you for letting us participate in the care of this patient. For questions regarding this report, please contact the number below. ? Narrative 08/22/2018 9:45 AM EDT EXAMINATION: MRI KNEE WO CONTRAST LEFT (GENERIC) CLINICAL HISTORY: history of multiple knee surgeries with lateral femoral condyle lesion treated with microfracture. Previous tibial tubercle transfer. TECHNIQUE: Routine noncontrast MRI of the Left knee was performed. COMPARISON: Prior left knee MRI, the most recent dated 07/21/2014 FINDINGS: Postoperative changes status post Benito osteotomy. Susceptibility artifact related to hardware somewhat mars the examination. At the margins of the surgery however no fluid collection or edema is identified. The osteotomy has healed. The patellar tendon is normal in appearance. The TT-TG measures 1.4 cm The modified Insall-Salvati criteria ratio is normal. The appropriateness of this measurement however is uncertain given the tibial tuberosity repositioning. With the knee in an extended position, the patella articulates with the superior most margin of the femoral trochlea. As seen on the preoperative MRI the femoral trochlea is shallow and dysplastic. The lateral facet of the patella articulates directly at the lateral margin of the femoral surface. At this level there is focal deformity of the articular cartilage in the underlying bone consistent with the patient's known history of earlier cartilage injury and subsequent microfracture. The surgical defect appears well-defined and filled with intermediate signal intensity on T1-weighted images and mixed signal intensity on T2-weighted images. The appearance is consistent with scar cartilage show formation. There is an absence of edema in the adjacent bone marrow. No focal cleft of fluid or cyst is apparent. Within the lateral facet of the patella there is increased signal intensity on fluid sensitive sequences focally as seen on image 10 of series 11. The appearance is consistent with a focal area of cartilage injury. No large chondral defect is apparent. MEDIAL COMPARTMENT: The medial meniscus is intact. No focal chondral defects. LATERAL COMPARTMENT: Lateral meniscus is intact. There is a focal chondral defect along the weightbearing surface of the lateral femoral condyle with underlying osseous defect measuring approximately 7 mm. PATELLOFEMORAL COMPARTMENT: Focal chondral defect with underlying osseous defect along the lateral femoral condyle measuring approximately 1.3 cm. , which is within normal range. No full-thickness chondral defects along the patellar cartilage. Small partial-thickness chondral defect along the lateral patellar facet. Irregularity and thickening along the peripheral with areas of susceptibility artifact, likely representing postoperative changes. CRUCIATE LIGAMENTS: The ACL and PCL are intact. COLLATERAL LIGAMENTS: The MCL and lateral collateral ligament complex are intact. TENDONS: The quadriceps, patellar, popliteus, pes anserine tendons are intact. Procedure Note Osman Mclalister MD - 08/22/2018 EXAMINATION: MRI KNEE WO CONTRAST LEFT (GENERIC) CLINICAL HISTORY: history of multiple knee surgeries with lateralfemoral condyle lesion treated with microfracture. Previous tibial tubercletransfer. TECHNIQUE: Routine noncontrast MRI of the Left knee was performed. COMPARISON: Prior left knee MRI, the most recent dated 07/21/2014 FINDINGS: Postoperative changes status post Benito osteotomy. Susceptibilityartifact related to hardware somewhat mars the examination. At the margins of thesurgery however no fluid collection or edema is identified. The osteotomy hashealed. The patellar tendon is normal in appearance. The TT-TG measures 1.4 cm The modified Insall-Salvati criteria ratio is normal. The appropriatenessof this measurement however is uncertain given the tibial tuberosityrepositioning. With the knee in an extended position, the patella articulates with thesuperior most margin of the femoral trochlea. As seen on the preoperative MRI the femoral trochlea is shallow anddysplastic. The lateral facet of the patella articulates directly at the lateralmargin of the femoral surface. At this level there is focal deformity of thearticular cartilage in the underlying bone consistent with the patient's knownhistory of earlier cartilage injury and subsequent microfracture. The surgicaldefect appears well-defined and filled with intermediate signal intensity on T1-weighted images and mixed signal intensity on T2-weighted images. The appearance is consistent with scar cartilage show formation. There is an absence of edema in the adjacent bone marrow. No focal cleft of fluid or cyst is apparent. Within the lateral facet of the patella there is increased signalintensity on fluid sensitive sequences focally as seen on image 10 of series 11. The appearance is consistent with a focal area of cartilage injury. No large chondral defect is apparent. MEDIAL COMPARTMENT: The medial meniscus is intact. No focal chondraldefects. LATERAL COMPARTMENT: Lateral meniscus is intact. There is a focalchondral defect along the weightbearing surface of the lateral femoral condylewith underlying osseous defect measuring approximately 7 mm. PATELLOFEMORAL COMPARTMENT: Focal chondral defect with underlying osseousdefect along the lateral femoral condyle measuring approximately 1.3 cm. , whichis within normal range. No full-thickness chondral defects along thepatellar cartilage. Small partial-thickness chondral defect along the lateralpatellar facet. Irregularity and thickening along the peripheral with areas of susceptibility artifact, likely representing postoperative changes. CRUCIATE LIGAMENTS: The ACL and PCL are intact. COLLATERAL LIGAMENTS: The MCL and lateral collateral ligament complexare intact. TENDONS: The quadriceps, patellar, popliteus, pes anserine tendons areintact. IMPRESSION 1. No focal complication following Fulkersonosteotomy. The osteotomyhas healed. 2. 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 3. At the level of the patient's femoral trochlear injury andsubsequent microfracture the deformity is well-defined and appears to be filled withscar cartilage. No edema, cyst formation or other evidence of acute injury or complication is seen. I have personally reviewed the image(s) and the residents interpretationand agree with the findings, Osman Mcallister at 08/22/2018 9:45 AM Thank you for letting us participate in the care of this patient. Forquestions regarding this report, please contact the number below. Benito Zhang MD IMG MRI ORDERABLES documented in this encounter Visit Diagnoses Diagnosis Internal derangement of left knee Unspecified internal derangement of knee Internal derangement of left knee Unspecified internal derangement of knee documented in this encounter Care Teams Range Aide Relationship Specialty Start Date End Date Mauri Villar MD [address] [place] [address] PCP - General Pediatrics 07/28/17 12/11/23 documented as of this encounter
--- OUTSIDE RECORDS SUMMARY | 2023-12-15 02:22 | XMS_ITS | Encounter Summary ---
[facility] [place] [address] Care Team Providers Care Purchasing Agent Name Role Phone Mauri Villar MD Primary Care Provider [phone] Encounter Details Date Type Department Care Team (Late st Contact Info) Description 12/13/2019 [place] [address] Hema Duran Social History Tobacco Use Types Packs/Day Years [...] encounter Miscellaneous Notes * Telephone Encounter - Hema Duran - 12/13/2019 3:37 PM EDT New letter was sent with approval from Kayla Marin PA-C, per the patient's request via [employer] platform. * Telephone Encounter - Hema Duran - 12/13/2019 2:01 PM EDT Provider last seen by?Tania ?? What type of letter is needed? Return to work Return to work/school/sports, out of work/school/sports, other ?? If return to work, how many hours per day/week? 40 hrs/week ? What do you want your start date to be? 12/13/19 ? What restrictions do you need?PT would like return to work with no restrictions. ? 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 Fax ? To what address/fax#? [phone] ?? To whose attention? To Whom It May Concern documented in this encounter Plan of Treatment Not on file documented as of this encounter Visit Diagnoses Not on filedocumented in this encounter Care Teams Purchasing Agent Relationship Specialty Start Date End Date Mauri Villar MD [address] [facility] [place] [address] PCP - General Pediatrics 07/28/17 12/11/23 documented as of this encounter
--- OUTSIDE RECORDS SUMMARY | 2023-12-15 02:22 | XMS_ITS | Encounter Summary ---
Author Organization [facility] [place] [address] Care Team Providers Care Machinist General Name Role Phone Mauri Villar MD Primary Care Provider [phone] Reason for Visit * Reason Comments Follow-up * Consultation (Routine) - Closed Specialty Diagnoses / Procedures Referred By Contlorena t Referred To Contact Pediatric Rheumatology Diagnoses AIDAN needs f/u Mauri Villar MD [address] [place] [address] [place] [address] [facility] Rhe[facility] [address] [place] [id number] Referral ID Status Reason Start Date Expiration Date V isits Requested Visits Authorized [id number] Closed Consult, Test & Treat [facility] 06/07/2017 06/07/2018 1 1 Encounter Details Date Type Department Care Team (Latest Contact Info) Description 07/28/2017 9:30 AM EDT Office Visit [place] [address] Hema Thorne MD [facility] [place] [address] AIDAN (juvenile idiopathic arthritis) Social History Tobacco Use Types Packs/Day Years [...] Sign Reading Time Taken Comments Blood Pressure 141/85 07/28/2017 9:18 AM EDT Pulse 87 07/28/2017 9:18 AM EDT Temperature 36.2 ??C (97.1 ??F) 07/28/2017 9:18 AM ED T Respiratory Rate - - Oxygen Saturation - - Inhaled Oxygen Concentration - - Weight 103.2 kg (227 lb 9.6 oz) 07/28/2017 9:18 AM EDT Height 160 cm (5' 3) 07/28/2017 9:18 AM EDT Body Mass Index 40.32 07/28/2017 9:18 AM EDT Body Mass Index Percentile 99.38% 07/28/2017 9:1 8 AM EDT Growth Chart: [facility] (Girls, 2- 20 Years) documented in this encounter Progress Notes * Hema Thorne MD - 07/28/2017 9:30 AM EDT [facility] Patient is a 17-year-old female with a past history of juvenile rheumatoid arthritis was last seen approximately 2-1/2 years ago treated with nonsteroidal anti-inflammatory agents primarilywith knee disease the knee disease was treated with [address] Zhang in 2016 with which addressed patellar dislocation and that has been largely successful but intermittently over the last 2 years she has had polyarthralgias which have been unresponsive to meloxicam She currently has 1 hour morning stiffness and pain in her hands elbows shoulders knees ankles and feet Review of systems is negative for rash Her past medical history is notable for ADHD depression and she is currently on control On exam she is healthy-appearing quiet and withdrawn her blood pressure 141/86 pulse of 87 temp of 97 1 height of 63 inches which is in the 33rd percentile weight of 227 which is in the 99th percentile her bit her BMI is 40 her HEENT exam she has mild acne her TMs are tender pharynx is benign her neck is too thick to palpate her chest is clear her heart exam is unremarkable her abdomen is benign her extremities she has no fibromyalgia tender points she has synovitis that are MCPs and wrists bilaterally mild elbow synovitis her knees are difficult to examine because she has bilateral scars hermother thinks are slightly swollen she has swollen ankles tenderness at her Achilles and her plantar fascia and a positive MTP squeeze test The patient is presenting with polyarthritis her outside labs show a sed rate of 27 but I repeated them here because she is failed both ibuprofen and meloxicam I started her on low-dose prednisone and I will follow-up in 1 month I am not sure if this is J I/A or the adult form of RA but is probably1 of the 2 documented in this encounter Miscellaneous Notes * Addendum Note - Christos Hayes - 07/28/2017 10:39 AM EDTAddended by: CHRISTOS HAYES on: 07/28/2017 10:39 AM Modules accepted: Orders documented in this encounter Plan of Treatment Not on file documented as of this encounter Procedures Procedure Name Priority Date/Time Associated Diagnosis Comments CRP, ACUTE INFLAMMATION Routine 07/28/2017 10:44 AM EDT AIDAN (juvenile idiopathic arthritis) ANTI-CYCLIC CITRULLINATED PEPTIDE AB Routine 07/28/2017 10:44 AM EDT AIDAN (juvenile idiopathic arthritis) DNA ANTIBODY (DOUBLE-STRANDED) Routine 07/28/2017 10:44 AM EDT HEMOGRAM Routine 07/28/2017 10:44 AM EDT AIDAN (juvenile idiopathic arthritis) DIFFERENTIAL, AUTOMATED Routine 07/28/2017 10:44 AM EDT AIDAN (juvenile idiopathic arthritis) HLA-B27 Routine 07/28/2017 10:44 AM EDT AIDAN (juvenile idiopathic arthritis) BERNY TITER Routine 07/28/2017 10:44 AM EDT SEDIMENTATION RATE Routine 07/28/2017 10 :44 AM EDT AIDAN (juvenile idiopathic arthritis) CBC (WITH DIFF) Routine 07/28/2017 10:44 AM EDT AIDAN (juvenile idiopathic arthritis) RHEUMATOID FACTOR, QUANT Routine 07/28/2017 10:44 AM EDT AIDAN (juvenile idiopathic arthritis) BERNY ANTIBODY SCREEN Routine 07/28/2017 1 0:44 AM EDT AIDAN (juvenile idiopathic arthritis) COMPREHENSIVE METABOLIC PANEL Routine 07/28/2017 10:44 AM EDT AIDAN (juvenile idiopathic arthritis) documented in this encounter Results * DNA Antibody (Double-Stranded) (07/28/2017 10:44 AM EDT) DNA Ab (DS) Neg Neg [facility] Blood specimen (specimen) 07/28/2017 10:44 AM EDT 07/28/2017 1:36 PM EDT Narrative Resulting Agency Comment Spec In Lab Hema Thorne MD LAB SEND OUT ORDERAB LES Performing Organization Address City/[facility]/ZIP Co de Phone Number [facility] [place] [address] * (ABNORMAL) BERNY Titer (07/28/2017 10:44 AM EDT) Pathologist [facility] BERNY Titer Pos at 1:320(A) [facility] Comment: pos 1:320 Titer seen with Homogeneous/Diffuse pattern. ??Is suggestive of autoantibodies to nDNA, histones, or DNA-associated proteins. Blood specimen (specimen) 07/28/2017 10:44 AM EDT 07/28/2017 1:36 PM EDT Narrative Resulting Agency Comment Spec In Lab Hema Thorne MD IMMUNOLOGY ORDERABLE S [facility] [place] [address] * Differential, Automated (07/28/2017 10:44 AM EDT) Neutrophil % 41.4 % [facility] Neutrophil Absolute 3.41 1.50 - 8.00 x10(3)/mcL [facility] Lymph % 48.6 % [facility] Lymphocytes Abs 4.0 1.2 - 5.2 x10(3)/[facility] Monocyte % 7.4 % [facility] Monocyte Abs 0.6 0.2 - 1.0 x10(3)/[facility] Eos % 1.7 % [facility] Eosinophils Abs 0.1 0.0 - 0.4 x10(3)/[facility] Basophil % 0.5 % [facility] Baso Absolute 0.0 0.0 - 0.1 x10(3)/[facility] Immature Gran % 0.40 % [facility] Comment: Immature granulocytes(IG's)percentage and absolute count will include metamyelocytes, myelocytes, and promyelocytes. Blood smears from CBCs yielding IG's will be scanned manually for concordance. If this scan disagrees with the automated IG or if promyelocytes are noted, a manual differential will be performed. Immature Gran Absolute 0.03 0.00 - 0.04 x10(3)/[facility] Blood specimen (specimen) 07/28/2017 10:44 AM EDT 07/28/2017 10:50 AM EDT Narrative Resulting Agency Comment Spec In Lab Hema Thorne MD HEMATOLOGY ORDERABLE S [facility] [place] [address] * Hemogram (07/28/2017 10:44 AM EDT) White Blood Cell 8.3 4.5 - 13.0 x10(3)/[facility] Red Blood Cell 4.68 4.10 - 5.10 x10(6)/[facility] Hemoglobin 12.9 12.0 - 16.0 gm/dL [facility] Hematocrit 39.5 36.0 - 46.0 % [facility] Mean Cell Volume 84.4 76.0 - 98.0 fL [facility] Mean Cell Hemoglobin 27.6 25.0 - 35.0 pg [facility] Mean Cell Hemoglobin Concentration 32.7 32.0 - 36.5 gm/dL [facility] Platelet 264 145 - 370 x10(3)/[facility] RDW Standard Deviation 41.5 37.0 - 46.0 fL [facility] RDW coefficient of variation 13.4 0.0 - 14.5 % [facility] Mean Platelet Volume 10.9 7.6 - 12.9 fL [facility] NRBC% auto 0.0 % [facility] NRBC Absolute 0.000 0.000 - 0.000 x10(3)/[facility] Blood specimen (specimen) 07/28/2017 10:44 AM EDT 07/28/2017 10:50 AM EDT Narrative Resulting Agency Comment Spec In Lab Hema Thorne MD HEMATOLOGY ORDERABLE S [facility] [place] [id number] * HLA-B27 (07/28/2017 10:44 AM EDT) HLA-B27 Negative [facility] HLA B27 Interpretation HLA B27 antigen was not detected. Method: Flow Cytometry Reference: 1.Yaa DA, Andres FD, Pollo Granados, et al: Ankylosing spondylitis and HLA-27. Lancet 1973;1:904-907 2.Mignon JChago CERDA: HLA-B27 typing by use of flow cytofluorometr y. Clin Chem 1987;33:1619-1 623 [facility] White Blood Cell 8.3 4.5 - 13.0 x10(3)/m cL [facility] Blood specimen (specimen) 07/28/2017 10:44 AM EDT 07/28/2017 10:50 AM EDT Narrative Resulting Agency Comment Spec In Lab Hema Thorne MD HEMATOLOGY ORDERABLE S Performing Organization Address [facility]/ZIP Co de Phone Number [facility] [place] [address] * Cyclic Citrullinated Peptide (07/28/2017 10:44 AM EDT) Cyclic Citrulline Peptide <0.5 <=4.9 unit/mL [facility] Comment: An updated CCP assay reagent was implemented 06/30/16. Please note the modified reference interval. Blood specimen (specimen) 07/28/2017 10:44 AM EDT 07/28/2017 10:50 AM EDT Narrative Resulting Agency Comment Spec In Lab Hema Thorne MD CHEMISTRY ORDERABLES Performing Organization Address [facility] Co de Phone Number [facility] [place] [address] * Rheumatoid factor, quant (07/28/2017 10:44 AM EDT) Rheumatoid Factor <10 <=14 IU/mL [facility] Blood specimen (specimen) 07/28/2017 10:44 AM EDT 07/28/2017 10:50 AM EDT Narrative Resulting Agency Comment Spec In Lab Hema Thorne MD CHEMISTRY ORDERABLES Performing Organization Address [facility] Co de Phone Number [facility] [place] [address] * (ABNORMAL) BERNY (07/28/2017 10:44 AM EDT) BERNY Pos, See Titer(A) Neg [facility] Blood specimen (specimen) 07/28/2017 10:44 AM EDT 07/28/2017 1:36 PM EDT Narrative Resulting Agency Comment Spec In Lab Hema Thorne MD LAB SEND OUT ORDERAB LES Performing Organization Address City/[facility]/ZIP Co de Phone Number [facility] [place] [address] * CRP, acute inflammation (07/28/2017 10:44 AM EDT) C-Reactive Protein 0.9 <=4.9 mg/L [facility] Blood specimen (specimen) 07/28/2017 10:44 AM EDT 07/28/2017 10:50 AM EDT Narrative Resulting Agency Comment Spec In Lab Hema Thorne MD CHEMISTRY ORDERABLES [facility] [place] [address] * Sedimentation rate (07/28/2017 10:44 AM EDT) [facility] Sedimentation Rate Automated 14 0 - 20 mm/hr [facility] Blood specimen (specimen) 07/28/2017 10:44 AM EDT 07/28/2017 10:50 AM EDT Narrative Resulting Agency Comment Spec In Lab Hema Thorne MD HEMATOLOGY ORDERABLE S [facility] [place] [address] * (ABNORMAL) Comprehensive metabolic panel (non-fasting) (07/28/2017 10:44 AM EDT) Pathologist [facility] Glucose 92 65 - 199 mg/dL [facility] Comment:Diabetes: >=200 mg/d L plus symptoms Blood Urea Nitrogen 8(L) 10 - 20 mg/dL [facility] Creatinine 0.82(H) 0.20 - 0.70 mg/dL [facility] Sodium 142 135 - 145 mmol/L [facility] Potassium 4.2 3.5 - 5.0 mmol/L [facility] Comment: Please note: ??Patients with WBC >100,000 may have falsely elevated Potassium levels. ??For accurate Potassium quantification in these patients send serum separator tube (gold top) for subsequent determinations. ??Contact the Clinical Chemistry Laboratory if there are any questions. Chloride 104 98 - 107 mmol/L [facility] Carbon Dioxide 26 22 - 31 mmol/L [facility] Anion Gap 12 5 - 15 mmol/L [facility] Calcium 8.7 8.5 - 10.5 mg/dL [facility] Protein, Total 7.0 6.4 - 8.3 gm/dL [facility] Albumin 4.3 3.2 - 5.2 gm/dL [facility] Aspartate Aminotransferase 19 5 - 30 unit/L [facility] Alanine Aminotransferase 20 0 - 25 unit/L [facility] Alkaline Phosphatase 71 55 - 140 unit/L [facility] Bilirubin, Total <0.2 <=1.0 mg/dL [facility] Est Glomerular Filtration Rate See note >=60 [facility] Comment: The eGFR for patients less than 18 years of age should be calculated using the Chan formula. GFR = (0.413 x Height in cm)/serum creatinine. The reported eGFR should be multiplied by 1.2 for patients. The MDRD is not an appropriate measure of renal function for patients with body mass extremes or in patients with acute kidney failure. http://[employer]/DHnkdep http://Bangbite/DHMCnkf Blood specimen (specimen) 07/28/2017 10:44 AM EDT 07/28/2017 10:50 AM EDT Narrative Resulting Agency Comment Spec In Lab Hema Thorne MD CHEMISTRY ORDERABLES [facility] [place] [address] documented in this encounter Visit Diagnoses Diagnosis AIDAN (juvenile idiopathic arthritis) Other specified inflammatory polyarthropathies documented in this encounter Care Teams Machinist General Relationship Specialty Start Date End Date Mauri Villar MD [address] [place] [address] PCP - General Pediatrics 07/28/17 12/11/23 documented as of this encounter
--- OUTSIDE RECORDS SUMMARY | 2023-12-15 02:22 | XMS_ITS | Encounter Summary ---
Author Organization [facility] [place] [address] Care Team Providers Care Well Logging Operator Mud Analysis Name Role Phone Ros Bean MD Primary Care Provider [phone] Encounter Details Date Type Department Care Team (Late st Contact Info) Description 02/14/2017 Ancillary Procedure Radiology Library at [facility] [place] [address] Benito Zhang MD [facility] [place] [address] Social History Tobacco Use Types Packs/Day Years [...] Procedure Name Priority Date/Time Associated Diagnosis Comments FILM LIBRARY STORAGE ONLY DX KNEE Routine 02/14/2017 12:00 AM EST documented in this encounter Results * Film Library- Storage Only DX Knee (02/14/2017 12:00 AM EST) Narrative DANIEL HASSAN - 01/21/2019 9:05 PM EST This exam is auto-finalizing. It's purpose is for storage only. Benito Zhang MD IMG FILM LIBRARY ORD ERABLES [facility] [place], [place] documented in this encounter Visit Diagnoses Not on filedocumented in this encounter Care Teams Well Logging Operator Mud Analysis Relationship Specialty Start Date End Date Ros Bean MD PCP - General Pediatrics 07/17/15 07/27/17 documented as of this encounter
--- OUTSIDE RECORDS SUMMARY | 2023-12-15 02:22 | XMS_ITS | Encounter Summary ---
Author Organization [facility] Address [facility] [place] [address] Care Team Providers Care Oil Well Directional Surveyor Name Role Phone Ros Bean MD Primary Care Provider [phone]- [phone] Encounter Details Date Type Department Care Team (Latest Contact Info) Description 01/29/2016 12:42 PM EST - 01/29/2016 11:59 PM EST Hospital Encounter XRay at [address] [place] [address] Cole Moreno MD [facility] [place] [address] Pain in right wrist Discharge Disposition: Home Social History Tobacco Use [...] by mouth daily. 30 tablet 12 09/02/2015 norelgestrom-ethinyl estradiol (XULANE) 150-35 mcg/24 hr Patch Weekly weekly 07/14/2015 07/01/2016 acetaminophen (TYLENOL) 325 mg Tablet Take 2 tablets by mouth every 6 hours. 30 tablet 1 09/09/2014 07/01/2016 documented as of this encounter Plan of Treatment Not on file documented as of this encounter Procedures Procedure Name Priority Date/Time Associated Diagnosis Comments XR WRIST 3 VIEWS RIGHT Routine 01/29/2016 1:00 PM EST Pain in right wrist documented in this encounter Results * XR Wrist Complete Min 3 views Right (Generic) (01/29/2016 1:00 PM EST) Anatomical Region Laterality Modality Right Digital Radiogra phy Narrative 01/29/2016 4:17 PM EST EXAMINATION: XR WRIST COMPLETE MIN 3 VIEWS RIGHT (GENERIC) CLINICAL HISTORY: right wrist pain TECHNIQUE: ? COMPARISON: MRI of wrist from October 2015 FINDINGS: Bones: No fracture is present. 1. ??Lunate-Flattened and deformed lunate with increased radiodensity represents Kienbock's disease, stage IIIa, similar to MRI. 2. ??Ulna-negative ulna variance unchanged Joints: No dislocation is seen. There is equivocal radial subluxation of the basal joints. Soft tissue: Soft tissue swelling. Impression 1. ??No fracture or dislocation 2. ??Kienbock's disease of the lunate 3. ??Ulnar negative variance Procedure Note Lorene Gan MD - 01/29/2016 EXAMINATION: XR WRIST COMPLETE MIN 3 VIEWS RIGHT (GENERIC) CLINICAL HISTORY: right wrist pain TECHNIQUE: COMPARISON: MRI of wrist from October 2015 FINDINGS: Bones: No fracture is present. 1. Lunate-Flattened and deformed lunate with increased radiodensityrepresents Kienbock's disease, stage IIIa, similar to MRI. 2. Ulna-negative ulna variance unchanged Joints: No dislocation is seen. There is equivocal radial subluxation ofthe basal joints. Soft tissue: Soft tissue swelling. Impression 1. No fracture or dislocation 2. Kienbock's disease of the lunate 3. Ulnar negative variance Cole Moreno MD IMG DX ORDERABLES documented in this encounter Visit Diagnoses Diagnosis Pain in right wrist Pain in joint, forearm documented in this encounter Care Teams Oil Well Directional Surveyor Relationship Specialty Start Date End Date Ros Bean MD PCP - General Pediatrics 07/17/15 07/27/17 documented as of this encounter
--- OUTSIDE RECORDS SUMMARY | 2023-12-15 02:22 | XMS_ITS | Clinical Summary ---
Author Organization [facility] Address [facility] [place] [address] Care Team Providers Care Cooker Mechanic Name Role Phone None Primary Care Provider Unavailabl e Allergies Active Allergy Reactions Criticality Noted Date Comments [place] Rash 08/01/2018 Rash/ lips swell Diclofenac 09/06/2017 Nausea and hypertension Latex Hives Medium 08/29/2017 Sulfa (Sulfonamide Antibiotics) Rash Unclassified Drug Anaphylaxis High 08/01/2018 jalapeno Medications Medication Sig Dispensed Refills Start Date End Date Status meloxicam (MOBIC) 15 mg TabletIndications:J IA (juvenile idiopathic arthritis) Take 1 tablet by mouth daily. 30 tablet 12 09/02/2015 Active Additional Information Patient not taking.Reported on 07/28/2017 FLUoxetine (PROZAC) 10 mg Capsule Take 10 mg by mouth daily. Active traZODone (DESYREL) 50 mg Tablet Take 50 mg by mouth nightly. Active predniSONE (DELTASONE) 5 mg TabletIndications:J IA (juvenile idiopathic arthritis) Take 2 tablets by mouth daily. 60 tablet 3 07/28/2017 Active Additional Information Patient not taking.Reported on 12/01/2017 sertraline (ZOLOFT) 100 mg TabletIndications:E ffusion of knee joint, left Take 2 tablets by mouth daily. 90 tablet 3 12/01/2017 Active Additional Information Patient not taking.Reported on 08/01/2018 methylphenidate HCl (CONCERTA) 27 mg Tablet Extended Rel 24 hrIndications:Effus ion of knee joint, left Take 1 tablet by mouth every morning. 90 tablet 12/01/2017 Active Additional Information Patient not taking.Reported on 08/01/2018 naproxen (EC NAPROSYN) 500 mg Tablet, Delayed Release (E.C.)Indications:E ffusion of knee joint, left Take 1 tablet by mouth 2 times daily (with meals). 60 tablet 3 12/01/2017 Active Additional Information Patient not taking.Reported on 08/01/2018 acetaminophen (Tylenol) 500 mg Tablet Take 1,000 mg by mouth every 6 hours as needed for Pain. Active ibuprofen (Advil;Motrin) 200 mg Tablet Take 200 mg by mouth every 6 hours as needed for Pain. Active cephALEXin (Keflex) 500 mg Capsule TAKE ONE CAPSULE BY MOUTH FOUR TIMES A DAY 11/22/2019 Active Ciprodex 0.3-0.1 % Drops, Suspension PLACE 4 DROPS INTO AFFECTED EAR S TWICE A DAY FOR 7 DAYS 11/17/2019 Active cyclobenzaprine (Flexeril) 10 mg Tablet TAKE ONE TABLET BY MOUTH THREE TIMES A DAY NEEDED FOR MUSCLE SPASM 01/01/2020 Active Active Problems Problem Noted Date Diagnosed Date Myofascial pain syndrome 01/17/2020 Kienb??ck's disease 10/05/2015 AIDAN (juvenile idiopathic arthritis) 09/02/2015 s/p left knee Benito oste otomy and lateral release 09/08/14 ([place]) 09/08/2014 Recurrent dislocation of rig ht patella - s/p Benito osteotomy, medial imbrication, lateral release (02/10/14) 02/10/2014 Knee pain, right 01/12/2012 R knee arthroscopy, microfra cture & medial patellar realignment procedure 02/12 [place] 09/20/2011 Effusion of knee joint 08/16/2010 Effusion of knee joint, left 07/14/2010 Overview (12/18/2011): Effusion tapped on 07/06/2010. Fluid was described as red. Encounters Date Type Department Care Team Description 12/12/2023 Transcribe Orders [facility] Incoming Referrals [phone] Winsome Pugh MD Morbid (severe) obesity due to excess calories; Supervision of other high risk pregnancies, unspecified trimester; History of uterine scar from previous surgery from Last 3 Months Immunizations Name Administration Dates Next Due Influenza PF, Split 02/11/2014 Family History Medical History Relation Comments Anemia Maternal Aunt Anemia Maternal Grandmother Anemia Mother Cancer Other High Blood Pressure Other Myocardial Infarction Other Arthritis Neg Hx Relation Status Comments Father Alive Maternal Aunt Maternal Grandmother Mother Alive Other Sister Alive Social History Tobacco Use Types Packs/Day Years Used Date Smoking Tobacco: Every Day Cigarettes Smokeless Tobacco: Never Comments:smokes a couple cig arettes a day Alcohol Use Standard Drinks/Week Comments No 0 (1 standard drink = 0.6 oz pur e alcohol) Sex and Gender Information Value Date Recorded Sex Assigned at Not on file Gender Identity Not on file Sexual Orientation Not on file Last Filed Vital Signs Vital Sign Reading Time Taken Comments Blood Pressure 149/87 01/17/2020 8:20 AM EDT Pulse 90 01/17/2020 8:20 AM EDT Temperature 37.1 ??C (98.8 ??F) 01/17/2020 8:20 AM ED T Respiratory Rate 16 09/09/2014 4:00 AM EDT Oxygen Saturation 100% 01/17/2020 8:20 AM EDT Inhaled Oxygen Concentration - - Weight 79.8 kg (176 lb) 01/17/2020 8:20 AM EDT Height 157.5 cm (5' 2) 01/17/2020 8:20 AM EDT Body Mass Index 32.19 01/17/2020 8:20 AM EDT Plan of Treatment Health Maintenance Due Date Last Done Comments Chlamydia Screening 05/31/2015 HPV vaccine (1 - 3-dose series) 05/31/2015 HIV screen 2018 Hepatitis C Screening 2018 Lipid Screening 2018 Hepatitis B vaccine (0-59 yrs) (1) 05/31/2019 Tetanus/Diphtheria/Pertussis Vaccines (1 - Tdap) 05/30 PAP Smear 2021 Covid-19 Vaccine (1 - 2022-24 season) 2023 Influenza (Flu) vaccine (1 o f 1 - Influenza standard series) 11/19/2023 02/11/2014 Medical Devices Implanted Type Area Physical Therapy Assistant Instructor Device Identifier Shelf Expiration Date Model / Serial / Lot Pin,Orthosorb ,St,1.3x40mm ([id number]) - [id number] Implanted:Qty : 1 on 08/31/2010 at [facility] IMPLANTS Left: Knee DO NOT USE Depuy Access Services Assistant - [id number] 05/03/2013 [id number] / / [id number] Pin,Orthosorb ,St,1.3x40mm ([id number]) - [id number] Implanted:Qty : 1 on 08/31/2010 at [facility] IMPLANTS Left: Knee DO NOT USE Depuy Access Services Assistant - [id number] 05/03/2013 [id number] / / [id number] Screw,Crtx,St ap,4.5x42mm ([id number]) - [id number] Implanted:Qty : 1 on 02/10/2014 by Benito Zhang MD at [facility] IMPLANTS Right: Tibia DO NOT USE SYNTHES - [id number] / / Screw,Crtx,St ap,4.5x48mm ([id number]) - [id number] Implanted:Qty : 1 on 02/10/2014 by Benito Zhang MD at [facility] IMPLANTS Right: Tibia DO NOT USE SYNTHES - [id number] / / Advance Directives * Full Code (Latest Code Status on File) Date Activated Date Inactivated Comments 09/08/2014 1:06 PM 09/09/2014 3:00 PM Question Answer Comments Does patient have decision m aking capacity? Yes, order is based on Patient wishes. * Full Code Date Activated Date Inactivated Comments 02/10/2014 5:12 PM 02/11/2014 4:58 PM Question Answer Comments Order Status: Initial Order Does patient have decision m aking capacity? Yes, Order is based on Patients wishes. * Full Code Date Activated Date Inactivated Comments 02/13/2012 5:00 PM 02/14/2012 3:41 PM Question Answer Comments Order Status: Initial Order Does patient have decision m aking capacity? Yes, Order is based on the parent(s) wishe(s). * Full Code Date Activated Date Inactivated Comments 04/05/2011 2:09 PM 04/05/2011 6:40 PM Question Answer Comments Order Status: Initial Order Does patient have decision m aking capacity? Yes, Order is based on Patients wishes. * Full Code Date Activated Date Inactivated Comments 12/16/2010 6:19 PM 12/17/2010 4:00 PM Question Answer Comments Order Status: Initial Order Does patient have decision m aking capacity? Yes, Order is based on the parent(s) wishe(s). Care Teams Cooker Mechanic Relationship Specialty Start Date End Date None None PCP - General 12/12/23
--- OUTSIDE RECORDS SUMMARY | 2023-12-15 02:22 | XMS_ITS | Encounter Summary ---
Author Organization [facility] [place] [address] Care Team Providers Care Firearms Model Maker Name Role Phone Mauri Villar MD Primary Care Provider [phone] Reason for Visit * Reason Comments Follow-up left knee pain- disc uss MRI Encounter Details Date Type Department Care Team (Late st Contact Info) Description 08/22/2018 8:50 AM EDT Office Visit [place] [id number] Clinic, Dr Zhang Team None Pain of left lower extremity Social History Tobacco Use Types Packs/Day Years [...] Sign Reading Time Taken Comments Blood Pressure 121/51 08/22/2018 9:32 AM EDT Pulse 80 08/22/2018 9:32 AM EDT Temperature - - Respiratory Rate - - Oxygen Saturation - - Inhaled Oxygen Concentration - - Weight 93.9 kg (207 lb) 08/22/2018 9:32 AM EDT w eighed Height 164.3 cm (5' 4.69) 08/22/2018 9:32 AM ED T measured Body Mass Index 34.78 08/22/2018 9:32 AM EDT Body Mass Index Percentile 97.25% 08/22/2018 9:3 2 AM EDT Growth Chart: CDC (Girls, 2- 20 Years) documented in this encounter Progress Notes * Benito Zhang MD - 08/22/2018 8:50 AM EDT Subjective: Patient ID: Samreen Martinez is a 18 y.o. female. Chief Complaint Patient presents with ??? Follow-up left knee pain- discuss MRI HPI Had her MR today and presents for discussion. She has not had any recurrent bouts of swelling. No patella dislocations or subluxations. Patient Active Problem List Diagnosis Code ??? Effusion of knee joint, left M25.462 ??? Effusion of knee joint M25.469 ? ? R knee arthroscopy, microfracture & medial patellar realignment procedure 02/12 [place] S83.003A ??? Knee pain, right M25.561 ??? 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 s/p left knee Benito osteotomy and lateral release 09/08/14 ([place]) M22.02 ??? AIDAN (juvenile idiopathic arthritis) M08.90 ??? 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 Latex Hives ??? Unable To Find [Unclassified Drug] Anaphylaxis jalapeno ??? Peytona Rash Rash/ lips swell ??? Diclofenac Nausea and hypertension ??? Sulfa (Sulfonamide Antibiotics) Rash Current Outpatient Medications on File Prior to Visit Medication Sig Dispense Refill ??? FLUoxetine (PROZAC) 10 mg Capsule Take 10 mg by mouth daily. ??? etonogestrel (NEXPLANON) 68 mg Implant by [...] taking: Reportedon 12/01/2017) 60 tablet 3 ??? traZODone (DESYREL) 50 mg Tablet Take 50 mg by mouth nightly. ??? meloxicam (MOBIC) 15 mg Tablet Take 1 tablet by mouth daily. (Patient not taking: Reported on 07/28/2017) 30 tablet 12 No current facility-administered medications on file prior to visit. Review of Systems Objective: Physical Exam Blood pressure 121/51, pulse 80, height 164.3 cm (5' 4.69), weight 93.9 kg (207 lb). LEFT knee No effusion Normal patella tracking. 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 No significant disease on thepatella by MR. Assessment and Plan: LEFT KNEE PAIN We reviewed her images and her mother was present We discussed the chondral issues. It does appear that she has some replacement cartilage. If she deteriorates: Cartilage quaker: She may be a candidate for a large SAMY vs. A fresh allograft but did talk about the difficulty of fitting that in. Or PFJ knowing the down sides of that. They hope to hold off on anything. documented in this encounter Plan of Treatment Not on file documented as of this encounter Visit Diagnoses Diagnosis Pain of left lower extremity documented in this encounter Care Teams Firearms Model Maker Relationship Specialty Start Date End Date Mauri Villar MD [address] [place] [address] PCP - General Pediatrics 07/28/17 12/11/23 documented as of this encounter
--- OUTSIDE RECORDS SUMMARY | 2023-12-15 02:22 | XMS_ITS | Encounter Summary ---
Author Organization [facility] [place] [address] Care Team Providers Care Modular Home Crew Member Name Role Phone Ros Bean MD Primary Care Provider [phone] Reason for Visit * Reason Comments Right Wrist Pain Encounter Details Date Type Department Care Team (Late st Contact Info) Description 01/29/2016 1:45 PM EST Office [place] [phone] Cole Moreno MD [facility] [place] [address] Kienb??ck's disease, right Social History Tobacco Use Types Packs/Day Years [...] Sign Reading Time Taken Comments Blood Pressure - - Pulse - - Temperature - - Respiratory Rate - - Oxygen Saturation - - Inhaled Oxygen Concentration - - Weight 102.9 kg (226 lb 14. 4 oz) 01/29/2016 1:47 PM EST Height 160.7 cm (5' 3.25) 01/29/2016 1:47 PM ES T Body Mass Index 39.88 01/29/2016 1:47 PM EST Body Mass Index Percentile 99.61% 01/29/2016 1:4 7 PM EST Growth Chart: CDC (Girls, 2- 20 Years) documented in this encounter Progress Notes * Dorita Perez, ANALYST GEOCHEMICAL PROSPECTING - 01/29/2016 1:45 PM EST HPI: Samreen is a 15 year old female who presents to clinic today in follow-up of her right wrist pain. She has been followed by Dr. Altamirano in the past for this and he sends her to Dr. Moreno today for another opinion. Per her previous notes she was sent to orthopaedics by her measurement psychologist for severalyears of right wrist pain. She has AIDAN that is being treated with meloxicam. There was no precipitat ing injury. She had x-rays that showed collapse of her right lunate and ulnar negative variance bilaterally. She has tried PT and splints in the past. She notes that her wrist pain has gotten worse over time. This is painful with daily activities. She does note swelling. She uses ibuprofen and Tylenol. She has difficulty finishing her school work given her pain. She is in the 10th grade. She notes the pain over the middle of her wrist. Physical Exam: Samreen is a healthy appearing, normally proportioned 15 year old female in no apparent distress. She is able to flex and extend her right wrist 30 degrees. She has pain with flexion over the volar aspect of her wrist. She has full supination and pronation. With ulnar deviation she has pain over theradius. She is able to make a fist. She has no pain with thumb motion. She is able to flex and extend her fingers with no pain. She notes pain with palpation over the distal radius. No pain over her DRUJ. She has tenderness in the ulnar carpal region. No pain with scapholunate stress. She is restricted with radial deviation. Good strength with pronator and supinator. X-rays: X-rays today show lunate collapse. Ulnar negative variance. Assessment and Plan: Samreen is a 15 year old female with Kienbocks and underlying AIDAN. Discussed the clinical and radiographic findings with them today. Dr. Moreno discusses with them today that she does have an ulnar negative variance, a steeper radial inclination and Kienbocks. He discusses with them today that the AIDAN does complicate this as it is difficulty to know what role this plays in her pain. He discusses the potential of trialing a steroid injection to see if this improves her pain. He discusses that if this does not improve her pain that the second option is to do a a radial shortening osteotomy. He discusses that it will be difficult to know how much improvement she will have given the AIDAN underlying. Dr. Moreno will work to discuss this with Dr. Altamirano to see if he would be willing to move forward with the injection. They are in agreement with this plan and have our contact information if they have any questions or concerns. The patient was seen and the plan was developed with Dr. Moreno. documented in this encounter Plan of Treatment Not on file documented as of this encounter Visit Diagnoses Diagnosis Kienb??ck's disease, right documented in this encounter Care Teams Modular Home Crew Member Relationship Specialty Start Date End Date Ros Bean MD PCP - General Pediatrics 07/17/15 07/27/17 documented as of this encounter
--- OUTSIDE RECORDS SUMMARY | 2023-12-15 02:22 | XMS_ITS | Encounter Summary ---
Author Organization [facility] Address [facility] [place] [address] Care Team Providers Care Core Drill Operator Helper Name Role Phone Ros Bean MD Primary Care Provider [phone]- [phone] Encounter Details Date Type Department Care Team (Late st Contact Info) Description 01/29/2016 Orders [place] [address] Cole Moreno MD [facility] DR [place] [address] Pain in right wrist Social History Tobacco [...] forearm documented in this encounter Care Teams Core Drill Operator Helper Relationship Specialty Start Date End Date Ros Bean MD PCP - General Pediatrics 07/17/15 07/27/17 documented as of this encounter
--- OUTSIDE RECORDS SUMMARY | 2023-12-15 02:22 | XMS_ITS | Encounter Summary ---
Author Organization [facility] Address [facility] [place] [address] Care Team Providers Care Esthetician/Spa Coordinator Name Role Phone Ros Bean MD Primary Care Provider [phone]- [phone] Encounter Details Date Type Department Care Team (Late st Contact Info) Description 02/01/2016 Orders [place] [address] Angeline Graham PA [facility] [place] [address] AIDAN (juvenile idiopathic arthritis); Kienb??ck's disease, right Social History Tobacco Use [...] as of this encounter Results * XR Fluoro Injection Drainage Joint Right (02/18/2016 9:43 AM EST) Anatomical Region Laterality Modality Right Radio Fluoroscop y Impressions 02/18/2016 11:34 AM EST Uneventful radiocarpal joint injection under fluoroscopy. I, LORENE CHAIDEZ MD , was present for the entire procedure and I performed the procedure. Narrative 02/18/2016 11:34 AM EST EXAMINATION: ??XR FLUORO INJECTION DRAINAGE JOINT MD SOTO CLINICAL HISTORY: ??Body Part (please add comments as necessary): Right wrist, Right wrist pain with history of inflammatory arthritis and Keinbock's RIGHT WRIST JOINT ??INJECTION UNDER FLUOROSCOPY TECHNIQUE: After an extensive conversation with the patient regarding risks and benefits, oral and written consent were obtained. ??A pre- procedural time-out was performed as per [facility] protocol. The patient was placed supine on the fluoroscopic table. ??The skin overlying the ?joint was prepped and draped in the usual aseptic manner. 1% Lidocaine was used to achieve local anesthesia. Under fluoroscopic guidance, a 25 gauge needle was advanced into the joint space. ??Small amount of contrast was injected to the document needle placement. ??A mixture of Ropivacaine and depomedrol was injected. All needles removed at end of procedure. ? FINDINGS: 1. ??Small amount of injected contrast in the radiocarpal joint space. 2. ??PAIN SCORE: Patient reported numbness following injection. No pain score obtained. ?? 3. Fluoroscopy time: .15 min 4. Medications: ??Lidocaine 1% - <5 ml, for subcutaneous anesthesia ?? Ropivacaine HCL ??0.5% - 1 ml (5mg) methylPREDNISolone acetate 40: 30 mg Omnipaque 300: <1ml COMPLICATIONS: None immediate. POST-PROCEDURE CARE: Information regarding monitor of infection, post- procedural pain and management of steroid flare were reviewed with patient. Procedure Note Lorene Chaidez MD - 02/18/2016 EXAMINATION: XR FLUORO INJECTION DRAINAGE JOINT MD SOTO CLINICAL HISTORY: Body Part (please add comments as necessary): Rightwrist, Right wrist pain with history of inflammatory arthritis and Keinbock's RIGHT WRIST JOINT INJECTION UNDER FLUOROSCOPY TECHNIQUE: After an extensive conversation with the patient regarding risks andbenefits, oral and written consent were obtained. A pre- procedural time-out was performed as per [facility] protocol. The patient was placed supine on the fluoroscopic table. The skinoverlying the joint was prepped and draped in the usual aseptic manner. 1% Lidocainewas used to achieve local anesthesia. Under fluoroscopic guidance, a 25 gaugeneedle was advanced into the joint space. Small amount of contrast was injectedto the document needle placement. A mixture of Ropivacaine and depomedrol was injected. All needles removed at end of procedure. ? FINDINGS: 1. Small amount of injected contrast in the radiocarpal joint space. 2. PAIN SCORE: Patient reported numbness following injection. No painscore obtained. 3. Fluoroscopy time: .15 min 4. Medications: Lidocaine 1% - <5 ml, for subcutaneous anesthesia Ropivacaine HCL 0.5% - 1 ml (5mg) methylPREDNISolone acetate 40: 30 mg Omnipaque 300: <1ml COMPLICATIONS: None immediate. POST-PROCEDURE CARE: Information regarding monitor of infection, post- procedural pain and management of steroid flare were reviewed withpatient. IMPRESSION Uneventful radiocarpal joint injection under fluoroscopy. ILORENE MD , was present for the entire procedure and Iperformed the procedure. Ted Altamirano MD IMG FLUORO ORDERABLE S documented in this encounter Visit Diagnoses Diagnosis AIDAN (juvenile idiopathic arthritis) Other specified inflammatory polyarthropathies Kienb??ck's disease, right AIDAN (juvenile idiopathic arthritis) Other specified inflammatory polyarthropathies Kienb??ck's disease, right documented in this encounter Care Teams Esthetician/Spa Coordinator Relationship Specialty Start Date End Date Ros Bean MD PCP - General Pediatrics 07/17/15 07/27/17 documented as of this encounter
--- OUTSIDE RECORDS SUMMARY | 2023-12-15 02:22 | XMS_ITS | Encounter Summary ---
Author Organization [facility] [place] [address] Care Team Providers Care Sales Analytics Manager Name Role Phone Mauri Villar MD Primary Care Provider [phone] Encounter Details Date Type Department Care Team (Late st Contact Info) Description 11/22/2019 12:10 AM EDT Ancillary Procedure Radiology Library at [place] [address] Mauri Villar MD [address] [place] [address] [place] [address] Social History Tobacco Use Types Packs/Day Years [...] Associated Diagnosis Comments FILM LIBRARY STORAGE ONLY CT HEAD AND SPINE Routine 11/22/2019 12:10 AM EDT documented in this encounter Results * Film Library- Storage Only CT Head And Spine (11/22/2019 12:10 AM EDT) Narrative [facility] - 11/26/2019 11:56 AM EDT This exam is auto-finalizing. It's purpose is for storage only. Mauri Villar MD IMG FILM LIBRARY OR DERABLES [facility] [place], [place] documented in this encounter Visit Diagnoses Not on filedocumented in this encounter Care Teams Sales Analytics Manager Relationship Specialty Start Date End Date Mauri Villar MD [address] [facility] [address] PCP - General Pediatrics 07/28/17 12/11/23 documented as of this encounter
--- OUTSIDE RECORDS SUMMARY | 2023-12-15 02:22 | XMS_ITS | Encounter Summary ---
Author Organization [facility] Address [facility] [place] [address] Care Team Providers Care Ethnographic Materials Conservator Name Role Phone Ros Bean MD Primary Care Provider [phone] Reason for Visit * Reason Onset Date Comments Results 10/26/2015 Encounter Details Date Type Department Care Team (Late st Contact Info) Description 10/26/2015 Telephone [place] [address] Benito Zhang MD [facility] [place] [address] Results Social History Tobacco Use Types Packs/Day Years [...] encounter Miscellaneous Notes * Telephone Encounter - Rodney Balderas - 10/26/2015 12:54 PM EDT What study is patient calling about? MRI 8-3-16 Per [facility] the study was done: yes Per [facility] the results are final: yes Best number to reach the patient #[phone] mom cell (name winsome) I will forward your message to the team and someone will follow up with you within [address] Altamirano was was going to discuss this case with Dr. Moreno. Can we please discern the status ofthat conversation and call mom back any time after 2:30? Thank you very much documented in this encounter Plan of Treatment Not on file documented as of this encounter Visit Diagnoses Not on filedocumented in this encounter Care Teams Ethnographic Materials Conservator Relationship Specialty Start Date End Date Ros Bean MD PCP - General Pediatrics 07/17/15 07/27/17 documented as of this encounter
--- OUTSIDE RECORDS SUMMARY | 2023-12-15 02:22 | XMS_ITS | Encounter Summary ---
Author Organization [facility] Address [facility] [place] [address] Care Team Providers Care Assistant Pressman Name Role Phone Mauri Villar MD Primary Care Provider [phone] Encounter Details Date Type Department Care Team (Latest Contact Info) Description 08/29/2017 4:00 PM EDT Office Visit [place] [address] Hema Thorne MD [facility] [place] [address] AIDAN (juvenile idiopathic arthritis) Social History Tobacco [...] Sign Reading Time Taken Comments Blood Pressure 148/78 08/29/2017 3:41 PM EDT Pulse 96 08/29/2017 3:41 PM EDT Temperature 36.8 ??C (98.3 ??F) 08/29/2017 3:41 PM ED T Respiratory Rate - - Oxygen Saturation - - Inhaled Oxygen Concentration - - Weight 101.8 kg (224 lb 6.4 oz) 08/29/2017 3:41 PM EDT Height 160 cm (5' 3) 08/29/2017 3:41 PM EDT Body Mass Index 39.75 08/29/2017 3:41 PM EDT Body Mass Index Percentile 99.25% 08/29/2017 3:4 1 PM EDT Growth Chart: CDC (Girls, 2- 20 Years) documented in this encounter Progress Notes * Hema Thorne MD - 08/29/2017 4:00 PM EDT Is a follow-up appointment on Pily Martinez birthdate 2000 The patient is a 17-year-old female with a history of J I/A treated only with nonsteroidal anti-inflammatory drugs she was originally seen by Dr. Zhang in 2016 for recurrent patellar dislocations and the surgery that he performed was successful in preventing the dislocations but she continued to have joint pain swelling heat and tenderness with 1 hour of morning stiffness I saw her once in 2016 and then not until 1 month ago on my exam she had synovitis at the MCPs and wrists bilaterally elbows probable knees and ankles as well as a positive MTP squeeze test put her on low-dose prednisone because she failed ibuprofen and meloxicam and during the last month she has got no benefit from the low-dose prednisone Today she comes in with the same joint complaints but additional history of ray nodes hives to sun exposure and dry eyes she denies alopecia or stomatitis She smokes marijuana to sleep and without it she sleeps very poorly On exam she is healthy but overweight her blood pressure is 148/78 pulse of 96 temp of 98 3 her height is 63 inches which is in the 32nd percentile her weight is 224 which is in the 98th percentile her BMI is 40 her HEENT exam she probably does have dry eyes her neck is too thick to palpate her chest is clear heart exam is unremarkable her abdomen is benign there is no organomegaly although it sowill be some not sure her extremities she is hypermobile her right wrist does not move well becauseshe has kienbock's anomaly she has no capillaroscopy changes her knees have the scars from the surgery and her hands and feet have the color changes suggestive ray nodes Laboratory data was notable for an BERNY of 1-320 in homogeneous pattern negative rheumatoid factor and CCP negative V.27 her sed rate was 14 and her CRP was 0.9 The differential diagnosis between oligo J I/A and lupus I wanted to do more extensive testing before committing to a DMARD. Laboratory studies are pending in the interim I have given her diclofenac I will follow-up in 1 month documented in this encounter Plan of Treatment Not on file documented as of this encounter Procedures Procedure Name Priority Date/Time Associated Diagnosis Comments EXTRACTABLE NUCLEAR ANTIGEN (ROSA M) AB Routine 08/29/2017 4:36 PM EDT AIDAN (juvenile idiopathic arthritis) URINALYSIS DIPSTICK Routine 08/29/2017 4 :36 PM EDT AIDAN (juvenile idiopathic arthritis) C3 COMPLEMENT Routine 08/29/2017 4:36 PM EDT AIDAN (juvenile idiopathic arthritis) C4 COMPLEMENT Routine 08/29/2017 4:36 PM EDT AIDAN (juvenile idiopathic arthritis) documented in this encounter Results * (ABNORMAL) Urinalysis without microscopic (08/29/2017 4:36 PM EDT) Glucose, Urine Dipstick Negative Negative mg/dL [facility] Protein, Urine Dipstick Negative Negative mg/dL [facility] Bilirubin, Urine Dipstick Negative Negative mg/dL [facility] Comment: Clinical correlation required for positive Urine Bilirubin results as false positive may occur with some drugs and drug related products. If a false positive is suspected a serum total bilirubin should be considered if clinically indicated. Urobilinogen, Urine Dipstick 2.0(A) Normal mg/dL [facility] pH, Urn (dipstick) 7.0 5.0 - 8.0 [facility] Blood, Urine Dipstick Moderate(A) Negative mg/dL [facility] Ketone, Urine Dipstick Negative Negative mg/dL [facility] Nitrite, Urine Dipstick Negative Negative [facility] Leukocytes, Urine Dipstick Large(A) Negative [facility] Appearance, Urine Dipstick Cloudy(A) Clear [facility] Specific [place] Urine Automated 1.010 1.002 - 1.030 [facility] Color, Urine Dipstick Yellow Yellow [facility] Urine specimen (specimen) 08/29/2017 4:36 PM EDT 08/29/2017 4:41 PM EDT Narrative Resulting Agency Comment Spec In Lab Hema Thorne MD URINE ORDERABLES [facility] [place] [address] * Extractable Nuclear Antigen (ROSA M) Ab (08/29/2017 4:36 PM EDT) ROSA M Ab Test ?Result ?Flag ??Unit ??RefValue Ab to Extractable Nuclear Ag Eval,S ??SS-A/Ro Ab, IgG, S ?<0.2 ?U ? <1.0 (Negative) ??SS-B/La Ab, IgG, S ?<0.2 ?U ? <1.0 (Negative) ??Sm Ab, IgG, S ? <0.2 ?U ? <1.0 (Negative) ??PORCELAIN ENAMEL SPRAYER Ab, IgG, S ?0.2 ? U ? <1.0 (Negative) ??Scl 70 Ab, IgG, S ? <0.2 ?U ? <1.0 (Negative) ??[place] 1 Ab, IgG, S ? <0.2 ?U ? <1.0 (Negative) ?Test Performed by: ?[facility] ?[id number] [place] [address] LABORATORY Blood specimen (specimen) 08/29/2017 4:36 PM EDT 08/30/2017 8:37 AM EDT Narrative Resulting Agency Comment Spec In Lab Hema Thorne MD LAB SEND OUT ORDERAB LES Performing Organization Address [facility] Co de Phone Number [facility] [place] [address] * (ABNORMAL) C4 Complement (08/29/2017 4:36 PM EDT) Complement C4 46(H) 8 - 44 mg/dL [facility] Blood specimen (specimen) 08/29/2017 4:36 PM EDT 08/29/2017 4:40 PM EDT Narrative Resulting Agency Comment Spec In Lab Hema Thorne MD CHEMISTRY ORDERABLES Performing Organization Address [facility] Co de Phone Number [facility] [place] [address] * C3 Complement (08/29/2017 4:36 PM EDT) Complement C3 157 107 - 200 mg/dL [facility] Blood specimen (specimen) 08/29/2017 4:36 PM EDT 08/29/2017 4:40 PM EDT Narrative Resulting Agency Comment Spec In Lab Hema Thorne MD CHEMISTRY ORDERABLES [facility] [place] [address] documented in this encounter Visit Diagnoses Diagnosis AIDAN (juvenile idiopathic arthritis) Other specified inflammatory polyarthropathies documented in this encounter Care Teams Assistant Pressman Relationship Specialty Start Date End Date Mauri Villar MD [address] [place] [address] PCP - General Pediatrics 07/28/17 12/11/23 documented as of this encounter
--- OUTSIDE RECORDS SUMMARY | 2023-12-15 02:22 | XMS_ITS | Encounter Summary ---
[place] [address] Care Team Providers Care Computer Lab Aide Name Role Phone Ros Bean MD Primary Care Provider [phone] Reason for Visit * Reason Onset Date Comments Post Txp Follow Up Call 03/15/2016 Winsome hansel led reporting little improvement from injection. Encounter Details Date Type Department Care Team (Late st Contact Info) Description 03/15/2016 [place] [address] Daya Fajardo, RN Post Txp Follow Up Call (Winsome called reporting little improvement from injection.) Social History Tobacco Use Types Packs/Day Years [...] encounter Miscellaneous Notes * Telephone Encounter - Maryellen Donato - 03/17/2016 3:43 PM EST [place] back from the [facility] team, they would like to move forward with scheduling. Contacted patients mother and relayed information. Also provided phone number for the schedulers For scheduling # [phone] #1 * Telephone Encounter - Maryellen Donato - 03/15/2016 3:[address] Moreno last note He discusses that if this does not improve her pain that the second optionis to do a a radial shortening osteotomy Checking with [facility] team on how to proceed with Radial Shortening Osteotomy. * Telephone Encounter - Daya Fajardo RN - 03/15/2016 1:57 PM EST Name:Samreen Martinez Contacted via: SURYA in [facility] Learning Needs Assessment done within 12 months (no change identified): Yes Orthopaedic history: Right Wrist Pain; Last appointment: 01/29/16 racheal Future appointment: None scheduled Background information: Pt Mom reports that Racheal suggested an injection. The injection has provided no pain relief. She would like to be contacted to discuss follow up and next step. Plan/Outcome: Routed to Pedi basket. documented in this encounter Plan of Treatment Not on file documented as of this encounter Visit Diagnoses Not on filedocumented in this encounter Care Teams Computer Lab Aide Relationship Specialty Start Date End Date Rso Bean MD PCP - General Pediatrics 07/17/15 07/27/17 documented as of this encounter
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
--- OUTSIDE RECORDS SUMMARY | 2023-12-15 02:22 | XMS_ITS | Encounter Summary ---
[place] [address] Care Team Providers Care Data Steward Name Role Phone Ros Bean MD Primary Care Provider [phone] Reason for Referral * Diagnostic Test (Routine) - Closed Specialty Diagnoses / Procedures Referred By Jack sherman Referred To Contact Radiology Diagnoses Pain in right wrist Procedures MRI Wrist Right WO Contrast Angeline Graham PA [facility] [place] [address] [place] [address] Referral ID Status Reason Start Date Expiration Date V isits Requested Visits Authorized [id number] Closed Specialty Service Requested 10/15/2015 01/13/2016 1 1 Reason for Visit * Reason Comments Right Wrist Pain R wrist pain * Consultation (Routine) - Closed Specialty Diagnoses / Procedures Referred By Jack sherman Referred To Contact Orthopaedics Diagnoses Pain in right wrist Hema Thorne MD [facility] [address] eTd Altamirano MD [facility] [place] [address] Referral ID Status Reason Start Date Expiration Date V isits Requested Visits Authorized [id number] Closed Consult, Test & Treat 09/09/2015 09/08/2016 1 1 Encounter Details Date Type Department Care Team (Late st Contact Info) Description 10/05/2015 4:10 PM EDT Office [place] [address] Ted Altamirano MD [facility] [place] [address] Pain in right wrist; Kienb??ck's disease, right Social History Tobacco Use [...] Sign Reading Time Taken Comments Blood Pressure 138/60 10/05/2015 4:07 PM EDT Pulse 98 10/05/2015 4:07 PM EDT Temperature - - Respiratory Rate - - Oxygen Saturation - - Inhaled Oxygen Concentration - - Weight 99.8 kg (220 lb) 10/05/2015 4:07 PM EDT V erbal Height 157.5 cm (5' 2) 10/05/2015 4:07 PM EDT V erbal Body Mass Index 40.24 10/05/2015 4:07 PM EDT Body Mass Index Percentile 99.71% 10/05/2015 4:0 7 PM EDT Growth Chart: [facility] (Girls, 2- 20 Years) documented in this encounter Progress Notes * Angeline Graham PA - 10/05/2015 4:10 PM EDT PATIENT NAME: Samreen Martinez AGE: 15 y.o. MR#: [id number] DATE OF VISIT: 10/05/2015 DATE OF INJURY/ONSET: Chronic STAFF: Dr. Altamirano CHIEF COMPLAINT: Rigth wrist pain HISTORY OF PRESENT ILLNESS: Samreen is a right hand dominant 15 y.o. female who comes into clinic today for evaluation of the right wrist. She was referred to [facility] by Hema Thorne. She statesthat she has had several years of right wrist pain. She cannot recall any specific injury that initiated her symptoms. She states that she has fallen numerous times on her outstretched hands and she has been struggling with chronic patellar instability, but she is unsure whether this specifically has caused her wrist pain. She is followed in rheumatology for juvenile idiopathic arthropathy. She is currently on meloxicam for this. X-rays of the bilateral hands were performed and she was found tohave collapse of the right lunate. She was referred to orthopedics for further management. She has t ried physical therapy and wrist splinting at bedtime in the past. She has not had any prior wrist surgeries. Medications and Allergies were reviewed in eD-H PAST MEDICAL HX: Past Medical History Diagnosis Date ??? Fracture of distal femur Per Mom, fx of lower femur and upper (?) tibia, long leg case PAST SURGICAL HX: Past Surgical History Procedure Laterality Date ??? Pro knee scope, diagnostic 08/31/2010 ARTHROSCOPY KNEE, DIAGNOSTIC performed by BRENDAN NAVARRO at [facility] OR ??? Pro apply long leg cast 08/31/2010 CAST APPLICATION, LONG LEG (THIGH TO TOES) performed by BRENDAN NAVARRO at [facility] OR ??? Pro knee scope, shave articular cart 08/31/2010 ARTHROSCOPY KNEE CHONDROPLASTY performed by BRENDAN NAVARRO at [facility] OR ??? Pro knee scope, drill oste diss+int fix 08/31/2010 ARTHROSCOPY KNEE, DRILLING & FIXATION OF OCD performed by BRENDAN NAVARRO at [facility] OR ??? Pro fix unstable patella, exten realign 12/16/2010 PATELLAR REALIGNMENT performed by BRENDAN NAVARRO at [facility] OR ??? Pro knee scope, remv loose body 12/16/2010 ARTHROSCOPY KNEE REMOVE LOOSE BODY performed by BENITO GUNTER at [facility] OR ??? Pro knee scope, abrasn arthroplasty 12/16/2010 ARTHROSCOPY KNEE, MULTIPLE DRILLING, MICROFRACTURE performed by BENITO GUNTER at [facility] OR ??? Pro apply long leg cast 12/16/2010 CAST APPLICATION, LONG LEG (THIGH TO TOES) performed by BENITO GUNTER at [facility] OR ??? Pro knee scope, part synovect 04/05/2011 ARTHROSCOPY KNEE SYNOVECTOMY LIMITED performed by BENITO GUNTER at [facility] OR ??? Pro drain/inject large joint/bursa 04/05/2011 ARTHROCENTESIS, ASPIRATION OR INJECTION, MAJOR JOINT OR BURSA, KNEE performed by BENITO GUNTER at [facility] OR ??? Pro knee scope, remv loose body 02/13/2012 ARTHROSCOPY KNEE REMOVE LOOSE BODY performed by BENITO GUNTER at [facility] OR ??? Pro arthrotomy/explore/treat knee joint 02/13/2012 ARTHROTOMY, KNEE WITH EXPLORATION performed by BENITO GUNTER at [facility] OR ??? Pro revision of unstable patella 02/13/2012 REPAIR DISLOCATING PATELLA performed by BENITO GUNTER at [facility] OR ??? Pro knee scope, abrasn arthroplasty 02/13/2012 ARTHROSCOPY KNEE, MULTIPLE DRILLING, MICROFRACTURE performed by BENITO GUNTER at [facility] OR ??? Pro osteotomy tibia Right 02/10/2014 OSTEOTOMY, TIBIA performed by Benito Gunter MD at [facility] OR ??? Pro knee scope, remv loose body Right 02/10/2014 ARTHROSCOPY KNEE REMOVE LOOSE BODY performed by Benito Gunter MD at [facility] OR ??? Pro revision of unstable patella Right 02/10/2014 REPAIR DISLOCATING PATELLA performed by Benito Gunter MD at [facility] OR ??? Pro osteotomy tibia Left 09/08/2014 OSTEOTOMY, TIBIA performed by Benito Gunter MD at [facility] OR ??? Pro knee scope, diagnostic Left 09/08/2014 ARTHROSCOPY KNEE, DIAGNOSTIC performed by Benito Gunter MD at [facility] OR SOCIAL HX: Social History Occupational History ??? student Social History Main Topics ??? Smoking status: Passive Smoke Exposure - Never Smoker ??? Smokeless tobacco: Never Used Comment: Adults smoke outside ??? Alcohol use No ??? Drug use: No ??? Sexual activity: No Comment: N/a Activities: 10th grade, states that she does not participate in sports/athletic activities due to arthritis/patellar issues ROS: Constitutional: neg HEENT: neg Cardiac: neg Pulmonary: neg GI/: neg Endocrine: neg Skin: neg Musculoskeletal: see HPI PHYSICAL EXAM: Samreen is a 15 y.o. female who is alert and is resting comfortably in the exam room.She presents today with her mother, step mother, and brother. Inspection: Skin remains intact. No localized erythema, ecchymosis, or swelling. She states that her wrist will swell on occasion. No evidence of synovitis. Palpation: She has generalized dorsal wrist pain. Most of her pain today seems to be more over the ulnar aspect of the wrist as opposed to directly over the lunate, but she does have some pain in this area. She is not having any significant radial sided wrist pain. Her left wrist remains asymptomatic. ROM/Strength: She is able to perform full active finger range of motion without difficulty. Her wrist range of motion remains fairly symmetrical, although she is perhaps lacking a few degrees of terminal wrist flexion and extension. There is no significant limitation with pronation or supination. No evidence of midcarpal instability with radial and ulnar deviation. Orthopedic testing: DRUJ is stable with piano wheeler testing in all planes. Neurovascular: Normal motor function of the radial, median, and ulnar nerves. Normal sensation along radial, median, and ulnar nerve distributions. Good hand perfusion. RADIOLOGICAL STUDIES: X-rays of the bilateral hands show no acute injuries. She has negative ulnar variance bilaterally with dysplastic changes at the DRUJ bilaterally. On the right there is evidenceof collapse of the lunate. There is no evidence of sclerosis or collapse of the left lunate on the AP views. On the lateral views there may be some fragmentation of the lunate. It is also difficult to assess for carpal malrotation or midcarpal arthritis on these films. No evidence of significant erosive changes consistent with inflammatory arthropathy. 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 Altamirano also evaluated and spoke with the patient at today's visit. I reviewed the x-rayswith the patient and her family today. There is radiographic evidence of Kienb??ck's disease. We would like to obtain an MRI to better evaluate the lunate and midcarpal joint alignment. While this certainly would be a cause for wrist pain, she has more generalized wrist pain on exam. She also has an underlying inflammatory arthropathy that could also be contributing to her symptoms. The MRI wouldalso show us if there is any evidence of synovitis or other soft tissue inflammation that may need to be addressed differently. We discussed that there are multiple surgical options for Kienb??ck's disease, but we would be able to discuss this in more detail once we have had a chance to review the MRI as the surgery of choice often depends on the stage of disease in addition to symptom level. It may also be worthwhile to discuss whether treatment for her left wrist may be needed in the future. She has negative ulnar variance on this side as well, but currently has no evidence of Kienb??ck's ra diographically or clinically. We would like to have her see Dr. More[place] after her MRI. We will see about coordinating this with the pedi ortho team once we have had a chance to obtain the MRI. She hasa follow-up appointment with Dr. Gunter for her knee in October and we will try to coordinate her visits as best as possible. They will contact us if they have any other questions or concerns. The above documentation was completed using [employer] voice recognition software. documented in this encounter Plan of Treatment Not on file documented as of this encounter Results * MRI Wrist Right WO Contrast (10/21/2015 12:24 PM EDT) Anatomical Region Laterality Modality Wrist Right Magnetic Resonan ce Narrative 10/21/2015 1:49 PM EDT EXAMINATION: MRI WRIST RIGHT WO CONTRAST CLINICAL HISTORY: Right dorsal wrist pain, lunate collapse on x-ray with known inflammatory arthropathy, evaluating lunate for evidence of fragmentation, also looking for soft tissue inflammation COMPARISON: Radiograph from August 2015. TECHNIQUE: Noncontrast MRI of the Right wrist was performed. Findings motion artifacts degrade the axial T2 images. Bones: 1. 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 There are small well-corticated bone fragment located in the dorsal and volar aspect of the scaphoid. No definite fracture along the coronal plane. The radial scaphoid angle is probably less than 60 degrees but is not optimally evaluated on the MRI. Consider wrist radiographs. 2. ??Rest of osseous structures-normal Fluid effusion: Trace fluid in the radial carpal joint. A septated synovial cyst measuring 7 x 4 m located deep to the radial vessels, abutting on the volar lip of the distal radius. Intrinsic ligaments 1. ??Scapholunate ligament: The volar component of the scapholunate ligament is irregular suspicious for tear, series 5 image 13. The scapholunate interval however, is normal. 2. ??Lunotriquetral ligament: No tear. 3. ??Triangular fibrocartilage: No tear. The TFC is thick as a result of ulna negative variance. Extensor compartment No interruption or dislocation. Flexor compartment Carpal tunnel: No mass lesion or fluid collection. Normal appearance. Median nerve: Normal size and signal. Flexor retinaculum: Not thickened. Flexor tendons: Not interrupted. Guyon canal: Normal and no mass lesion. Articulations Distal radioulnar joint: Congruent Radio-carpal joint: Normal alignment. Evaluation of the articular cartilage is limited by motion. Thumb carpometacarpal, Scaphotrapezotrapezoidal, Pisiform-triquetral joints: Normal Muscles: Normal Impression 1. ??Collapsed lunate with abnormal marrow signal [dark T1 and variable T2] represents avascular necrosis/Kienbock's, stage IIIa. 2. ??Ulnar negative variance. 3. ??Probably torn volar component of the scapholunate ligament. 4. ??Normal tendons and no synovitis. Procedure Note Lorene Gan MD - 10/21/2015 EXAMINATION: MRI WRIST RIGHT WO CONTRAST CLINICAL HISTORY: Right dorsal wrist pain, lunate collapse on x-ray withknown inflammatory arthropathy, evaluating lunate for evidence of fragmentation,also looking for soft tissue inflammation COMPARISON: Radiograph from August 2015. TECHNIQUE: Noncontrast MRI of the Right wrist was performed. Findings motion artifacts degrade the axial T2 images. Bones: 1. 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 There aresmall well-corticated bone fragment located in the dorsal and volar aspect ofthe scaphoid. No definite fracture along the coronal plane. The radialscaphoid angle is probably less than 60 degrees but is not optimally evaluated onthe MRI. Consider wrist radiographs. 2. Rest of osseous structures-normal Fluid effusion: Trace fluid in the radial carpal joint. A septated synovialcyst measuring 7 x 4 m located deep to the radial vessels, abutting on thevolar lip of the distal radius. Intrinsic ligaments 1. Scapholunate ligament: The volar component of the scapholunateligament is irregular suspicious for tear, series 5 image 13. The scapholunateinterval however, is normal. 2. Lunotriquetral ligament: No tear. 3. Triangular fibrocartilage: No tear. The TFC is thick as a result ofulna negative variance. Extensor compartment No interruption or dislocation. Flexor compartment Carpal tunnel: No mass lesion or fluid collection. Normal appearance. Median nerve: Normal size and signal. Flexor retinaculum: Not thickened. Flexor tendons: Not interrupted. Guyon canal: Normal and no mass lesion. Articulations Distal radioulnar joint: Congruent Radio-carpal joint: Normal alignment. Evaluation of the articularcartilage is limited by motion. Thumb carpometacarpal, Scaphotrapezotrapezoidal, Pisiform-triquetraljoints: Normal Muscles: Normal Impression 1. Collapsed lunate with abnormal marrow signal [dark T1 and variableT2] represents avascular necrosis/Kienbock's, stage IIIa. 2. Ulnar negative variance. 3. Probably torn volar component of the scapholunate ligament. 4. Normal tendons and no synovitis. Ted Altamirano MD IMG MRI ORDERABLES documented in this encounter Visit Diagnoses Diagnosis Pain in right wrist Pain in joint, forearm Kienb??ck's disease, right Pain in right wrist Pain in joint, forearm documented in this encounter Care Teams Data Steward Relationship Specialty Start Date End Date Ros Bean MD PCP - General Pediatrics 07/17/15 07/27/17 documented as of this encounter
--- OUTSIDE RECORDS SUMMARY | 2023-12-15 02:22 | XMS_ITS | Encounter Summary ---
Author Organization [facility] Address [facility] [place] [address] Care Team Providers Care [place] Utility Worker Name Role Phone Ros Bean MD Primary Care Provider [phone] Reason for Visit * Reason Comments Right Wrist Pain * Consultation (Routine) - Closed Specialty Diagnoses / Procedures Referred By Jack sherman Referred To Contact Orthopaedics Diagnoses osteochondrosis of carpal lenate- rt hand Ros Bean MD [address] [place] [phone] [facility] [address] [place] [phone] Referral ID Status Reason Start Date Expiration Date V isits Requested Visits Authorized [id number] Closed Connection Center 04/25/2016 04/25/2017 1 1 Encounter Details Date Type Department Care Team (Late st Contact Info) Description 07/01/2016 3:00 PM EDT Office [place] [address] Cole Moreno MD [facility] [place] [address] Kienb??ck's disease, right; AIDAN (juvenile idiopathic arthritis) Social History Tobacco [...] - Inhaled Oxygen Concentration - - Weight 98.7 kg (217 lb 11.2 oz) 07/01/2016 3:06 PM EDT Height 158.8 cm (5' 2.5) 07/01/2016 3:06 PM EDT Body Mass Index 39.18 07/01/2016 3:06 PM EDT Body Mass Index Percentile 99.42% 07/01/2016 3:0 6 PM EDT Growth Chart: [facility] (Girls, 2- 20 Years) documented in this encounter Progress Notes * Dorita Perez, BHARGAVI - 07/01/2016 3:00 PM EDT HPI: Samreen is a 16 year old female who presents to clinic today in follow-up of her right wrist pain. She has been followed by Dr. Altamirano in the past. Per her previous notes she was sent to orthopaedicsby her pattern checker for several years of right wrist pain. She has AIDAN that is being treated withmeloxicam. She states that she is not finding benefit from the meloxicam and would like to change her medications. In regards to her wrist pain there was no precipitating injury. She had x-rays that showed collapse of her right lunate and ulnar negative variance bilaterally. She has tried PT and splints in the past. She had an injection since her last visit which per report she did not find pain relief with. They note today that she has had some issues with anger and in the past week has punched a number of things with her right hand. She thinks that her wrist pain is staying about the same. Physical Exam: Samreen is a healthy appearing, normally proportioned 16 year old female in no apparent distress. She has resolving bruises over her knuckles. She is able to flex and extend her right wrist 30 degrees. She has pain with flexion over the volar aspect of her wrist. She has full supination and pronation. She is able to make a fist. She is able to flex and extend her fingers with no pain. No pain overher DRUJ. She has tenderness in the ulnar carpal region. No pain with scapholunate stress. Good strength with pronator and supinator. X-rays: X-rays today show lunate collapse. Ulnar negative variance. Assessment and Plan: Samreen is a 16 year old female with Kienbocks and underlying AIDAN. Discussed the clinical and radiographic findings with them today. Dr. Moreno discusses with them today that she reports no worsening of symptoms. She continues with occasional bouts of pain in her wrist but not daily. We will have them work with her pattern checker to discuss her wish to change her medication. He also discusses having her talk with someone in regards to her recent anger issues. In regards to her wrist we will haveher follow-up in 3-6 months for repeat x-rays and exam. They are in agreement with this plan and have our contact information if they have any questions or concerns. The patient was seen and the planwas developed with Dr. Moreno. documented in this encounter Plan of Treatment Not on file documented as of this encounter Visit Diagnoses Diagnosis Kienb??ck's disease, right AIDAN (juvenile idiopathic arthritis) Other specified inflammatory polyarthropathies documented in this encounter Care Teams [place] Utility Worker Relationship Specialty Start Date End Date Ros Bean MD PCP - General Pediatrics 07/17/15 07/27/17 documented as of this encounter
--- OUTSIDE RECORDS SUMMARY | 2023-12-15 02:22 | XMS_ITS | Encounter Summary ---
Author Organization [facility] [place] [address] Care Team Providers Care Search Analyst Name Role Phone Mauri Villar MD Primary Care Provider [phone] Encounter Details Date Type Department Care Team (Late st Contact Info) Description 11/22/2019 12:05 AM EDT Ancillary Procedure Radiology Library at [facility] [place] [address] Mauri Villar MD [address] [place] [address] [place] [address] Social History Tobacco Use Types Packs/Day Years [...] Diagnosis Comments FILM LIBRARY STORAGE ONLY CT SPINE Routine 11/22/2019 12:05 AM EDT documented in this encounter Results * Film Library- Storage Only CT Spine (11/22/2019 12:05 AM EDT) Narrative RAD - 11/26/2019 11:45 AM EDT This exam is auto-finalizing. It's purpose is for storage only. Mauri Villar MD IMG FILM LIBRARY OR DERABLES [place], [place] documented in this encounter Visit Diagnoses Not on filedocumented in this encounter Care Teams Search Analyst Relationship Specialty Start Date End Date Mauri Villar MD [address] [place] [address] PCP - General Pediatrics 07/28/17 12/11/23 documented as of this encounter
--- OUTSIDE RECORDS SUMMARY | 2023-12-15 02:22 | XMS_ITS | Encounter Summary ---
Author Organization [facility] [place] [address] Care Team Providers Care Rental Sales Agent Name Role Phone Mauri Villar MD Primary Care Provider [phone] Reason for Referral * Diagnostic Test (Routine) - Closed Specialty Diagnoses / Procedures Referred By Contac t Referred To Contact Radiology Diagnoses Internal derangement of left knee Procedures MRI Knee wo Contrast Left (Generic) Benito Zhang MD [facility] [place] [address] [place] [address] Referral ID Status Reason Start Date Expiration Date V isits Requested Visits Authorized [id number] Closed Specialty Service Requested 08/01/2018 08/01/2019 1 1 Reason for Visit * Diagnostic Test (Routine) - Closed Specialty Diagnoses / Procedures Referred By Contac t Referred To Contact Radiology Diagnoses Internal derangement of left knee Procedures MRI Knee wo Contrast Left (Generic) Benito Zhang MD [facility] [place] [address] [place] [address] Referral ID Status Reason Start Date Expiration Date V isits Requested Visits Authorized [id number] Closed Specialty Service Requested 08/01/2018 08/01/2019 1 1 Encounter Details Date Type Department Care Team (Latest Contact Info) Description 08/22/2018 7:04 AM EDT - 08/22/2018 11:59 PM EDT [place] [address] Benito Zhang MD [facility] [place] [address] Internal derangement of left knee Discharge Disposition: Home Social [...] Procedure Name Priority Date/Time Associated Diagnosis Comments MRI KNEE LEFT WO CONTRAST Routine 08/22/2018 8:23 AM EDT Internal derangement of left knee documented in this encounter Results * MRI Knee wo [...] report, please contact the number below. ? Electronically signed by: Osman Mcallister [facility] ([phone]), at 08/22/2018 9:45 AM Narrative 08/22/2018 9:45 AM EDT EXAMINATION: MRI [...] anserine tendons are intact. Procedure Note Osman Mcallister MD - 08/22/2018 EXAMINATION: MRI KNEE WO [...] this report, please contact the number below. Electronically signed by: Osman Mcallister [facility]([phone]), at 08/22/2018 9:45 AM Bentio Zhang MD IMG MRI ORDERABLES documented in this encounter Visit Diagnoses Diagnosis Internal derangement of left knee Unspecified internal derangement of knee documented in this encounter Care Teams Rental Sales Agent Relationship Specialty Start Date End Date Mauri Villar MD [address] [facility] [place] [address] PCP - General Pediatrics 07/28/17 12/11/23 documented as of this encounter
--- OUTSIDE RECORDS SUMMARY | 2023-12-15 02:22 | XMS_ITS | Encounter Summary ---
[place] [address] Care Team Providers Care Appeals Writer Name Role Phone Ros Bean MD Primary Care Provider +1- [phone] Encounter Details Date Type Department Care Team (Late st Contact Info) Description 10/05/2015 Orders [place] [address] Maryellen Watson Social History Tobacco Use Types Packs/Day Years [...] on filedocumented in this encounter Care Teams Appeals Writer Relationship Specialty Start Date End Date Ros Bean MD PCP - General Pediatrics 07/17/15 07/27/17 documented as of this encounter
--- OUTSIDE RECORDS SUMMARY | 2023-12-15 02:22 | XMS_ITS | Encounter Summary ---
Author Organization [facility] Address [facility] [place] [address] Care Team Providers Care Block Engraver Name Role Phone Mauri Villar MD Primary Care Provider [phone] Encounter Details Date Type Department Care Team (Late st Contact Info) Description 12/09/2019 Telephone [place] [address] Tania, ZOILA Solorzano [facility] [place] [address] Social History Tobacco Use Types Packs/Day Years [...] encounter Miscellaneous Notes * Telephone Encounter - Simi Dacosta - 12/09/2019 10:18 AM EDT Letter faxed as instructed * Telephone Encounter - Precious Shea - 12/09/2019 9:29 AM EDT Provider: Dr. Zhang Attention: To whom it may concern Letter: Return to work/ as of 12/09/2019 Company: [employer] located in [place], [place] Fax #: [phone] documented in this encounter Plan of Treatment Not on file documented as of this encounter Visit Diagnoses Not on filedocumented in this encounter Care Teams Block Engraver Relationship Specialty Start Date End Date Mauri Villar MD [address] [place] [address] PCP - General Pediatrics 07/28/17 12/11/23 documented as of this encounter
--- OUTSIDE RECORDS SUMMARY | 2023-12-15 02:22 | XMS_ITS | Encounter Summary ---
Author Organization [place] [address] Care Team Providers Care Transportation Maintenance Operator Name Role Phone Mauri Villar MD Primary Care Provider [phone] Encounter Details Date Type Department Care Team (Late st Contact Info) Description 11/22/2019 12:15 AM EDT Ancillary Procedure Radiology Library at [facility] [place] [place] [address] Mauri Villar MD [address] [place] [address] [place] [address] Social History Tobacco Use Types Packs/Day Years [...] Diagnosis Comments FILM LIBRARY STORAGE ONLY CT CHEST ABDOMEN PELVIS Routine 11/22/2019 12:15 AM EDT documented in this encounter Results * Film Library- Storage Only CT Chest Abdomen Pelvis (11/22/2019 12:15 AM EDT) Narrative [facility] - 11/26/2019 11:56 AM EDT This exam is auto-finalizing. It's purpose is for storage only. Mauri Villar MD IMG FILM LIBRARY OR DERABLES [facility] [place], [place] documented in this encounter Visit Diagnoses Not on filedocumented in this encounter Care Teams Transportation Maintenance Operator Relationship Specialty Start Date End Date Mauri Villar MD [address] [facility] [place] [address] PCP - General Pediatrics 07/28/17 12/11/23 documented as of this encounter
--- OUTSIDE RECORDS SUMMARY | 2023-12-15 02:22 | XMS_ITS | Encounter Summary ---
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
--- OUTSIDE RECORDS SUMMARY | 2023-12-15 02:22 | XMS_ITS | Encounter Summary ---
Author Organization [facility] Address [facility] [place] [address] Care Team Providers Care Multi Punch Operator Name Role Phone Ros Bean MD Primary Care Provider [phone]- [phone] Reason for Visit * Reason Onset Date Comments Appointment 03/23/2017 Encounter Details Date Type Department Care Team (Late st Contact Info) Description 03/23/2017 Telephone [place] [id number] Cole Moerno MD [facility] [place] [address] Appointment Social History Tobacco Use Types Packs/Day Years [...] encounter Miscellaneous Notes * Telephone Encounter - Mary Kate Davis - 03/24/2017 12:57 PM EST Patient scheduled * Telephone Encounter - Maryellen Watson - 03/23/2017 8:39 AM EST LM# 1 to schedule patient for appt with Dr Moreno, please direct call to Maryellen or Ashley Rowland Patient to be schedule for XR RIGHT WRIST PAIN in April. documented in this encounter Plan of Treatment Not on file documented as of this encounter Visit Diagnoses Not on filedocumented in this encounter Care Teams Multi Punch Operator Relationship Specialty Start Date End Date Ros Bean MD PCP - General Pediatrics 07/17/15 07/27/17 documented as of this encounter
--- OUTSIDE RECORDS SUMMARY | 2023-12-15 02:22 | XMS_ITS | Encounter Summary ---
Author Organization [facility] [place] [address] Care Team Providers Care Wick Tender Name Role Phone Mauri Villar MD Primary Care Provider [phone] Encounter Details Date Type Department Care Team (Late st Contact Info) Description 11/22/2019 Ancillary Procedure Radiology Library at [facility] [place] [address] Mauri Villar MD [address] [place] [id number] Social History Tobacco Use Types Packs/Day Years [...] Diagnosis Comments FILM LIBRARY STORAGE ONLY DX LOWER EXTREMITY Routine 11/22/2019 12:00 AM EDT documented in this encounter Results * Film Library- Storage Only DX Lower Extremity (11/22/2019 12:00 AM EDT) Narrative [facility] - 11/26/2019 11:45 AM EDT This exam is auto-finalizing. It's purpose is for storage only. Mauri Villar MD IMG FILM LIBRARY OR DERABLES [place], [place] documented in this encounter Visit Diagnoses Not on filedocumented in this encounter Care Teams Wick Tender Relationship Specialty Start Date End Date Mauri Villar MD [address] [place] [address] PCP - General Pediatrics 07/28/17 12/11/23 documented as of this encounter
--- OUTSIDE RECORDS SUMMARY | 2023-12-15 02:22 | XMS_ITS | Encounter Summary ---
Author Organization [facility] [place] [address] Care Team Providers Care Grain Elevator Operator Name Role Phone Ros Bean MD Primary Care Provider +1- [phone] Reason for Visit * Reason Onset Date Comments Knee Pain 09/15/2015 Appointment 09/15/2015 Encounter Details Date Type Department Care Team (Late st Contact Info) Description 09/15/2015 [place] [address] Daya Fajardo, RN Knee Pain; Appointment Social History Tobacco Use Types Packs/Day [...] * Telephone Encounter - Simi Dacosta - 09/17/2015 2:32 PM EDT Patient scheduled with new RT knee x-rays ordered * Telephone Encounter - Daisy Howard - 09/16/2015 1:29 PM EDT Samreen can be seen in our clinic by Dr. Zhang/[facility], Destiny dorado, or [facility]on [facility] as Dr. Zhang if off next week. If it is her RIGHT knee she will need new films (sports series prior to being seen), if it is her LEFT knee she would like to be seen for then knee 2 view (AP/Lateral) is appropriate * Telephone Encounter - Daya Fajardo, RN - 09/15/2015 4:25 PM EDT Mom is Winsome and left message in NCC ?? Extensive surgical history with Zhang Last surgical procedure: PRO OSTEOTOMY TIBIA 09/08/2014 Left OSTEOTOMY, TIBIA performed by Benito Zhang MD at [facility] MA[facility] OR PRO KNEE SCOPE, DIAGNOSTIC 09/08/2014 Left ARTHROSCOPY KNEE, DIAGNOSTIC performed by Benito Zhang MD at [facility] MA[facility] OR Mom reports R.T. is having pain in her knee, mom specifically said R knee in message, and wonderingif she should follow up with Vicente since she is one year out from surgery, or if should be evaluated by her automatic glove turner and former. Please advise Mom: may be reached at above number after 230 Routed to N,W ATC-PE documented in this encounter Plan of Treatment Not on file documented as of this encounter Visit Diagnoses Not on filedocumented in this encounter Care Teams Grain Elevator Operator Relationship Specialty Start Date End Date Ros Bean MD PCP - General Pediatrics 07/17/15 07/27/17 documented as of this encounter
--- OUTSIDE RECORDS SUMMARY | 2023-12-15 02:22 | XMS_ITS | Encounter Summary ---
[place] [address] Care Team Providers Care Equipment Driver Name Role Phone Ros Bean MD Primary Care Provider +1- [phone] Reason for Visit * Reason Onset Date Comments Other 07/01/2016 Medication Issue Encounter Details Date Type Department Care Team (Late st Contact Info) Description 07/01/2016 Telephone [place] [phone] Zane Chaves RN Other (Medication Issue) Social History Tobacco Use Types Packs/Day Years [...] Telephone Encounter - Zane Chaves RN - 07/01/2016 4:22 PM EDT August from Orthopedics calls and reports that Samreen states the Mobic is not working for her. She would like other recommendations from Dr. Thorne. I saw her once a year ago. I need to see her again before making any recommendations ? Previous Messages Left message for a call back to schedule an appointment. documented in this encounter Plan of Treatment Not on file documented as of this encounter Visit Diagnoses Not on filedocumented in this encounter Care Teams Equipment Driver Relationship Specialty Start Date End Date Ros Bean MD PCP - General Pediatrics 07/17/15 07/27/17 documented as of this encounter
--- OUTSIDE RECORDS SUMMARY | 2023-12-15 02:22 | XMS_ITS | Encounter Summary ---
Author Organization [facility] [place] [address] Care Team Providers Care Automotive Parts Counter Assistant Name Role Phone Ros Bean MD Primary Care Provider +1- [phone] Encounter Details Date Type Department Care Team (Latest Contact Info) Description 10/21/2015 2:50 PM EDT - 10/21/2015 11:59 PM EDT Hospital Encounter XRay at [address] [place] [address] Benito Zhang MD [facility] [place] [address] Acute pain of right knee Discharge Disposition: Home Social History Tobacco [...] Name Priority Date/Time Associated Diagnosis Comments XR SPORTS TEAM PTS UNDER 25 AP LAT SCHUSS SKYLINE RIGHT Routine 10/21/2015 3:09 PM EDT Acute pain of right knee documented in this encounter Results * XR Sports Team Pts Under 25 AP Lat Schuss Pittman Right (10/21/2015 3:09 PM EDT) Anatomical Region Laterality Modality Knee Right Digital Radiogra phy Narrative 10/21/2015 4:19 PM EDT EXAMINATION: XR SPORTS TEAM PTS UNDER 25 AP LAT SCHUSS SKYLINE RIGHT CLINICAL HISTORY: RT KNEE PAIN S/P REMOTE ALAINA'S PROCEDURE TECHNIQUE: AP Savage and skyline views of both knees and lateral view of the RIGHT knee. COMPARISON: None FINDINGS: Bones: No fracture is present. Prior bilateral tibial tubercle osteotomy fixated by 2 screws. No hardware complications. The osteotomy line is completely obliterated. RIGHT patella-high riding. Knee Joints: No dislocation is seen. Bilateral knee joint spaces are relatively preserved. The patellofemoral alignment is normal bilaterally. There are tiny osteophytes arising from the RIGHT knee. No large RIGHT knee effusion. Soft tissue: Normal. Impression 1. ??No fracture or dislocation 2. ??Healed bilateral tibial osteotomy with normal patellofemoral alignment. 3. ??High riding RIGHT patella. 4. ??Small osteophytes arising from the RIGHT knee joint where the joint spaces are preserved. Procedure Note Lorene Gan MD - 10/21/2015 EXAMINATION: XR SPORTS TEAM PTS UNDER 25 AP LAT SCHUSS SKYLINE RIGHT CLINICAL HISTORY: RT KNEE PAIN S/P REMOTE ALAINA'S PROCEDURE TECHNIQUE: AP Savage and skyline views of both knees and lateral viewof the RIGHT knee. COMPARISON: None FINDINGS: Bones: No fracture is present. Prior bilateral tibial tubercle osteotomy fixated by 2 screws. Nohardware complications. The osteotomy line is completely obliterated. RIGHT patella-high riding. Knee Joints: No dislocation is seen. Bilateral knee joint spaces arerelatively preserved. The patellofemoral alignment is normal bilaterally. There are tiny osteophytes arising from the RIGHT knee. No large RIGHTknee effusion. Soft tissue: Normal. Impression 1. No fracture or dislocation 2. Healed bilateral tibial osteotomy with normal patellofemoralalignment. 3. High riding RIGHT patella. 4. Small osteophytes arising from the RIGHT knee joint where the jointspaces are preserved. Benito Zhang MD IMG DX ORDERABLES documented in this encounter Visit Diagnoses Diagnosis Acute pain of right knee documented in this encounter Care Teams Automotive Parts Counter Assistant Relationship Specialty Start Date End Date oRs Bean MD PCP - General Pediatrics 07/17/15 07/27/17 documented as of this encounter
--- OUTSIDE RECORDS SUMMARY | 2023-12-15 02:22 | XMS_ITS | Encounter Summary ---
Author Organization [facility] Address [facility] [place] [address] Care Team Providers Care Market Research Associate Name Role Phone Ros Bean MD Primary Care Provider +1- [phone] Reason for Referral * Consultation (Routine) - Closed Specialty Diagnoses / Procedures Referred By Jack sherman Referred To Contact Orthopaedics Diagnoses Pain in right wrist Hema Thorne MD [facility] [address] Ted Altamirano MD [facility] [place] [address] Referral ID Status Reason Start Date Expiration Date V isits Requested Visits Authorized [id number] Closed Consult, Test & Treat 09/09/2015 09/08/2016 1 1 Encounter Details Date Type Department Care Team (Late st Contact Info) Description 09/09/2015 Orders Only Rheumatology at [place] [id number] Hema Thorne MD [facility] [place] [address] Pain in right wrist Social History Tobacco [...] Priority Associated Diagnoses Order Schedule Referral to Orthopaedics Outpatient Referral Routine Pain in right wrist Ordered: 09/09/2015 documented as of this encounter Visit Diagnoses Diagnosis Pain in right wrist Pain in joint, forearm documented in this encounter Care Teams Market Research Associate Relationship Specialty Start Date End Date Ros Bean MD PCP - General Pediatrics 07/17/15 07/27/17 documented as of this encounter
--- OUTSIDE RECORDS SUMMARY | 2023-12-15 02:22 | XMS_ITS | Encounter Summary ---
Author Organization [facility] Address [facility] [place] [address] Care Team Providers Care Agent Producer Name Role Phone Ros Bean MD Primary Care Provider +1- [phone] Encounter Details Date Type Department Care Team (Latest Contact Info) Description 07/01/2016 2:00 PM EDT - 07/01/2016 11:59 PM EDT Hospital Encounter XRay at [address] [place] [address] Cole Moreno MD [facility] [place] [address] Pain in right wrist Discharge Disposition: Home [...] Sig Dispensed Refills Start Date End Date FLUoxetine (PROZAC) 10 mg Capsule Take 10 mg by mouth daily. traZODone (DESYREL) 50 mg Tablet Take 50 mg by mouth nightly. meloxicam (MOBIC) 15 mg TabletIndications:AIDAN (juvenile idiopathic arthritis) Take 1 tablet by mouth daily. 30 tablet 12 09/02/2015 cetirizine (ZYRTEC) 10 mg Tablet Take 10 mg by mouth daily. 08/01/2018 norgestimate-ethinyl estradiol (SPRINTEC, 28,) 0.25-35 mg-mcg Tablet Take 1 tablet by mouth daily. 08/01/2018 documented as of this encounter Plan of Treatment Not on file documented as of this encounter Procedures Procedure Name Priority Date/Time Associated Diagnosis Comments XR WRIST 3 VIEWS RIGHT Routine 07/01/2016 3:30 PM EDT Pain in right wrist documented in this [...] forearm documented in this encounter Care Teams Agent Producer Relationship Specialty Start Date End Date Ros Bean MD PCP - General Pediatrics 07/17/15 07/27/17 documented as of this encounter
--- OUTSIDE RECORDS SUMMARY | 2023-12-15 02:22 | XMS_ITS | Encounter Summary ---
[place] [address] Care Team Providers Care Children'S [address] Magistrate Name Role Phone Ros Bean MD Primary Care Provider +1- [phone] Encounter Details Date Type Department Care Team (Late st Contact Info) Description 09/09/2015 Telephone [place] [address] Karoline Wyatt RN Social History Tobacco Use Types Packs/Day Years [...] encounter Miscellaneous Notes * Telephone Encounter - Karoline Wyatt RN - 09/09/2015 11:30 AM EDT Winsome calls today wanting to get the results of Samreen's blood work and xrays that were done last week. Will forward. documented in this encounter Plan of Treatment Not on file documented as of this encounter Visit Diagnoses Not on filedocumented in this encounter Care Teams Children'S Court Magistrate Relationship Specialty Start Date End Date Ros Bean MD PCP - General Pediatrics 07/17/15 07/27/17 documented as of this encounter
--- OUTSIDE RECORDS SUMMARY | 2023-12-15 02:22 | XMS_ITS | Encounter Summary ---
Author Organization [facility] Address [facility] [place] [address] Care Team Providers Care Supervisor Display Fabrication Name Role Phone Mauri Villar MD Primary Care Provider [phone] Reason for Visit * Reason Onset Date Comments Letter for School/Work 12/06/2019 Encounter Details Date Type Department Care Team (Late st Contact Info) Description 12/06/2019 Telephone [place] [id number] Tania, ZOILA Solorzano [facility] [place] [address] Letter for School/Work Social History Tobacco Use Types Packs/Day Years [...] Telephone Encounter - Simi Dacosta - 12/09/2019 7:34 AM EDT Letter created and faxed. * Telephone Encounter - Kristen Gonzalez - 12/06/2019 4:50 PM EDT Fax number : [phone] * Telephone Encounter - Rosalia Birgit Mcmullen - 12/06/2019 3:47 PM EDT Provider last seen by?Tania What type of letter is needed? Return to work Return to work/school/sports, out of work/school/sports, other If return to work, how many hours per day/week?40 hrs/week What do you want your start date to be?12/05/19 What restrictions do you need?PT would like return to work at light duty. PT would like weight limit restrictions for no more than 20 lbs. Would you like to berry picker machine operator your letter, fax, mail, or myD-H?Fax no email please, only as a last option To what address/fax#?PT to call back with fax # To whose attention?To Whom It May Concern documented in this encounter Plan of Treatment Not on file documented as of this encounter Visit Diagnoses Not on filedocumented in this encounter Care Teams Supervisor Display Fabrication Relationship Specialty Start Date [place] [address] PCP - General Pediatrics 07/28/17 12/11/23 documented as of this encounter
--- OUTSIDE RECORDS SUMMARY | 2023-12-15 02:22 | XMS_ITS | Encounter Summary ---
Author Organization [facility] Address [facility] [place] [address] Care Team Providers Care Case Manager Specialist Name Role Phone Ros Bean MD Primary Care Provider +1- [phone] Encounter Details Date Type Department Care Team (Latest Contact Info) Description 02/18/2016 8:40 AM EST - 02/18/2016 11:59 PM EST Hospital Encounter XRay at [address] [place] [address] Ted Altamirano MD [facility] [place] [address] AIDAN (juvenile idiopathic arthritis); Kienb??ck's disease, right Discharge Disposition: Home Social History Tobacco Use [...] Name Priority Date/Time Associated Diagnosis Comments XR FLUORO GUIDED JOINT INJECTION MEDIUM RIGHT Routine 02/18/2016 9:43 AM EST AIDAN (juvenile idiopathic arthritis) Kienb??ck's disease, right documented in this encounter Results * XR Fluoro Injection Drainage Joint Right (02/18/2016 9:43 AM EST) Anatomical Region Laterality Modality Right Radio Fluoroscop y Impressions 02/18/2016 11:34 AM EST Uneventful radiocarpal joint injection under fluoroscopy. I, LORENE CHAIDEZ MD , was present for the entire procedure and I performed the procedure. Narrative 02/18/2016 11:34 AM EST EXAMINATION: ??XR FLUORO INJECTION DRAINAGE JOINT RIGHT CLINICAL HISTORY: ??Body Part (please add comments as necessary): Right wrist, Right wrist pain with history of inflammatory arthritis and [place]'s RIGHT WRIST JOINT ??INJECTION UNDER FLUOROSCOPY TECHNIQUE: After an extensive conversation with the patient regarding risks and benefits, oral and written consent were obtained. ??A pre- procedural time-out was performed as per [facility] protocol. The patient was placed supine on [...] pre- procedural time-out was performed as per [facility] protocol. The patient was placed supine on [...] IMPRESSION Uneventful radiocarpal joint injection under fluoroscopy. I, LORENE CHAIDEZ MD , was present for the entire procedure and Iperformed the procedure. 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
--- OUTSIDE RECORDS SUMMARY | 2023-12-15 02:22 | XMS_ITS | Encounter Summary ---
Author Organization [facility] Address [facility] [place] [address] Care Team Providers Care Hydraulic Auto Jack Mechanic Name Role Phone Ros Bean MD Primary Care Provider [phone] Reason for Visit * Reason Comments Right Knee Pain Right knee shira s 02/10/14 pain s/p fall 09/10/15 Encounter Details Date Type Department Care Team (Late st Contact Info) Description 10/21/2015 3:50 PM EDT Office [place] [address] Benito Zhang MD [facility] [place] [address] Acute pain of right knee Social History Tobacco Use Types Packs/Day [...] Sign Reading Time Taken Comments Blood Pressure 145/64 10/21/2015 3:39 PM EDT Pulse 96 10/21/2015 3:39 PM EDT Temperature - - Respiratory Rate - - Oxygen Saturation - - Inhaled Oxygen Concentration - - Weight 99.8 kg (220 lb) 10/21/2015 3:39 PM EDT v erbal Height 157.5 cm (5' 2) 10/21/2015 3:39 PM EDT v erbal Body Mass Index 40.24 10/21/2015 3:39 PM EDT Body Mass Index Percentile 99.70% 10/21/2015 3:3 9 PM EDT Growth Chart: CDC (Girls, 2- 20 Years) documented in this encounter Progress Notes * Benito Zhang MD - 10/21/2015 3:50 PM EDT Subjective: Patient ID: Samreen Martinez is a 15 y.o. female. Chief Complaint Patient presents with ??? Right Knee Pain Right knee fulkersons 02/10/14 pain s/p fall 09/10/15 Date of Surgery: 09/08/14 POSTOPERATIVE DIAGNOSIS: Left knee recurrent patellar dislocation PROCEDURES PERFORMED: Left knee diagnostic arthroscopy, left knee Shira osteotomy with lateral release Date of Surgery: 09/08/14 POSTOPERATIVE DIAGNOSIS: Left knee recurrent patellar dislocation PROCEDURES PERFORMED: Left knee diagnostic arthroscopy, left knee Shira osteotomy with lateral release HPI The patient fell on her right knee and had pain in the knee. She did not have any significant swelling and things seem to be getting better. She is here with her mother and family. Patient Active Problem List Diagnosis Code ??? Effusion of knee joint, left M25.462 ??? Effusion of knee joint M25.469 ? ? R knee arthroscopy, microfracture & medial patellar realignment procedure 02/12 Vicente S83.006A ??? Knee pain, right M25.561 ??? 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 s/p left knee Shira osteotomy and lateral release 09/08/14 (Vicente) M22.02 ??? AIDAN (juvenile idiopathic arthritis) M08.90 ??? 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 Sulfa (Sulfonamide Antibiotics) Rash Current Outpatient Prescriptions on File Prior to Visit Medication Sig Dispense Refill ??? norelgestrom-ethinyl estradiol (XULANE) 150-35 mcg/24 hr Patch Weekly weekly ??? meloxicam (MOBIC) 15 mg Tablet Take 1 tablet by mouth daily. 30 tablet 12 ??? acetaminophen (TYLENOL) 325 mg Tablet Take 2 tablets by mouth every 6 hours. 30 tablet 1 No current facility-administered medications on file prior to visit. Review of Systems Objective: Physical Exam Blood pressure 145/64, pulse 96, height 157.5 cm (5' 2), weight (!) 99.8 kg (220 lb). Right Knee Exam Swelling: None Effusion: No Tenderness The patient is experiencing tenderness in the generalized. Range of Motion Normal right knee ROM Tests Daniel: Anterior - Negative Drawer: Anterior - Negative Posterior - Negative Varus: Negative Valgus: Negative Patellar Apprehension: No IMAGING: stable appearing knee with intact hardware and healed osteotomy. Assessment and Plan: RIGHT KNEE PAIN Reassured the patient and her family Advised to work on strengthening Provided letter for the patient regarding non-participation in PE at school. I do not think she will be able to do this now or in the future. She has multiple joint issues that will preclude participation in sports/PE. RTC prn documented in this encounter Plan of Treatment Not on file documented as of this encounter Visit Diagnoses Diagnosis Acute pain of right knee documented in this encounter Care Teams Hydraulic Auto Jack Mechanic Relationship Specialty Start Date End Date Ros Bean MD PCP - General Pediatrics 07/17/15 07/27/17 documented as of this encounter
--- OUTSIDE RECORDS SUMMARY | 2023-12-15 02:22 | XMS_ITS | Encounter Summary ---
Author Organization [facility] [place] [address] Care Team Providers Care Votator Machine Operator Name Role Phone Ros Bean MD Primary Care Provider [phone] Reason for Referral * Diagnostic Test (Routine) - Closed Specialty Diagnoses / Procedures Referred By Jack sherman Referred To Contact Radiology Diagnoses Pain in right wrist Procedures MRI Wrist Right WO Contrast Angeline Graham PA [facility] [place] [address] [place] [address] Referral ID Status Reason Start Date Expiration Date V isits Requested Visits Authorized [id number] Closed Specialty Service Requested 10/15/2015 01/13/2016 1 1 Reason for Visit * Diagnostic Test (Routine) - Closed Specialty Diagnoses / Procedures Referred By Jack sherman Referred To Contact Radiology Diagnoses Pain in right wrist Procedures MRI Wrist Right WO Contrast Angeline Graham PA [facility] [place] [address] [place] [address] Referral ID Status Reason Start Date Expiration Date V isits Requested Visits Authorized [id number] Closed Specialty Service Requested 10/15/2015 01/13/2016 1 1 Encounter Details Date Type Department Care Team (Latest Contact Info) Description 10/21/2015 10:58 AM EDT - 10/21/2015 2:49 PM EDT Hospital Encounter MRI at [facility] [place] [address] Ted Altamirano MD [facility] [address] [place] [address] Pain in right wrist Discharge Disposition: Home [...] Name Priority Date/Time Associated Diagnosis Comments MRI WRIST RIGHT WO CONTRAST Routine 10/21/2015 12:24 PM EDT Pain in right wrist documented in this encounter Results * MRI Wrist Right [...] 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
--- OUTSIDE RECORDS SUMMARY | 2023-12-15 02:23 | XMS_ITS | Encounter Summary ---
[place] [address] Care Team Providers Care Commutator V Ring Assembler Name Role Phone Michelet Cramer MD Primary Care Provider [phone] Encounter Details Date Type Department Care Team (Late st Contact Info) Description 12/30/2013 Orders [place] [address] Chichi Meredith, RN Knee pain, right (Primary Dx) Social History Tobacco Use Types Packs/Day Years [...] as of this encounter Visit Diagnoses Diagnosis Knee pain, right- Primary Pain in joint, lower leg documented in this encounter Care Teams Commutator V Ring Assembler Relationship Specialty Start Date End Date Michelet Cramer MD [address] [place] [address] [place] [address] PCP - General 04/27/10 07/16/15 documented as of this encounter
--- OUTSIDE RECORDS SUMMARY | 2023-12-15 02:23 | XMS_ITS | Encounter Summary ---
Author Organization [facility] Address [facility] Serina [place] [address] Care Team Providers Care Sole Rougher Name Role Phone Michelet Cramer MD Primary Care Provider [phone] Encounter Details Date Type Department Care Team (Late st Contact Info) Description 10/30/2014 1:47 PM EDT - 10/30/2014 11:59 PM EDT Hospital Encounter XRay at [address] [place] [address] Left knee pain Social History Tobacco Use Types Packs/Day Years [...] Sig Dispensed Refills Start Date End Date human papillomavirus 4-valent, PF, (GARDASIL) 20-40-40-20 mcg/0.5 mL Suspension Once 12/18/2012 10/21/2015 acetaminophen (TYLENOL) 325 mg Tablet Take 2 tablets by mouth every 6 hours. 30 tablet 1 09/09/2014 07/01/2016 documented as of this encounter Plan of Treatment Not on file documented as of this encounter Procedures Procedure Name Priority Date/Time Associated Diagnosis Comments XR KNEE DIAGNOSTIC 1 OR 2 VIEW Routine 10/30/2014 1:58 PM EDT Left knee pain documented in this encounter Results * XR knee diagnostic 1 or 2 view (10/30/2014 1:58 PM EDT) Anatomical Region Laterality Modality Knee N/A Radiographic Savana ging 10/30/2014 1:58 PM EDT Impressions 10/30/2014 2:07 PM EDT IMPRESSION: Status post right tibial osteotomy without complication. Narrative 10/30/2014 2:07 PM EDT EXAMINATION: KNEE 1 OR 2 VIEWS/LEFT CLINICAL HISTORY: s/p tibial osteotomy TECHNIQUE: AP standing radiographs of bilateral knees with lateral radiograph of left knee. COMPARISON: 09/16/2014. FINDINGS: Again seen is anterior proximal tibial osteotomy with 2 cannulated screws traversing the proximal tibia within the right knee. No hardware complication is seen. Mild tricompartment degenerative changes seen with mild joint space loss and spurring. Small suprapatellar effusion with prepatellar soft tissue swelling is noted. No osseous destructive lesions are seen. Single AP view of the left knee reveals 2 screws traversing the proximal tibia without complication. Procedure Note Griffin Marr MD - 10/30/2014 EXAMINATION: KNEE 1 OR 2 VIEWS/LEFT CLINICAL HISTORY: s/p tibial osteotomy TECHNIQUE: AP standing radiographs of bilateral knees with lateralradiograph of left knee. COMPARISON: 09/16/2014. FINDINGS: Again seen is anterior proximal tibial osteotomy with 2 cannulatedscrews traversing the proximal tibia within the right knee. No hardwarecomplication is seen. Mild tricompartment degenerative changes seen with mild joint spaceloss and spurring. Small suprapatellar effusion with prepatellar soft tissueswelling is noted. No osseous destructive lesions are seen. Single AP view of the left knee reveals 2 screws traversing the proximaltibia without complication. IMPRESSION IMPRESSION: Status post right tibial osteotomy without complication. Benito Zhang MD IMG DX ORDERABLES documented in this encounter Visit Diagnoses Diagnosis Left knee pain Pain in joint, lower leg documented in this encounter Care Teams Sole Rougher Relationship Specialty Start Date End Date Michelet Cramer MD [address] [place] [address] PCP - General 04/27/10 07/16/15 documented as of this encounter
--- OUTSIDE RECORDS SUMMARY | 2023-12-15 02:23 | XMS_ITS | Encounter Summary ---
Author Organization [facility] Address [facility] [place] [address] Care Team Providers Care Electronic Resources Librarian Name Role Phone Michelet Cramer MD Primary Care Provider [phone] Reason for Visit * Reason Comments Follow Up Surgery sp right knee fulker sons dos 02/10/14 Encounter Details Date Type Department Care Team (Late st Contact Info) Description 05/13/2014 2:30 PM EST Office Visit [place] [address] Benito Zhang MD [facility] [place] [address] Recurrent dislocation of right patella - s/p Alaina osteotomy, medial imbrication, lateral release (02/10/14) Discharge Disposition: Home Social History Tobacco Use [...] Sign Reading Time Taken Comments Blood Pressure 98/81 05/13/2014 2:45 PM EST Pulse 106 05/13/2014 2:45 PM EST Temperature - - Respiratory Rate - - Oxygen Saturation - - Inhaled Oxygen Concentration - - Weight 92.1 kg (203 lb) 05/13/2014 2:45 PM EST Height 158.1 cm (5' 2.25) 05/13/2014 2:45 PM ES T stated Body Mass Index 36.83 05/13/2014 2:45 PM EST Body Mass Index Percentile 99.52% 05/13/2014 2:4 5 PM EST Growth Chart: [facility] (Girls, 2- 20 Years) documented in this encounter Progress Notes * Benito Zhang MD - 05/13/2014 2:54 PM EST Subjective: Patient ID: Samreen Martinez is a 13 y.o. female. Case Date: 02/10/2014 Procedure(s): OSTEOTOMY, TIBIA ALAINA ARTHROSCOPY KNEE REMOVE LOOSE BODY REPAIR DISLOCATING PATELLA HPI Here earlier than expected because the therapists were worried about color changes in the skin above and below the knee. It didn't seem to change much with taking the brace off. She is otherwise doing well. She has marked improvement in her ROM. No patellar instability issues. Allergies Allergen Reactions ??? Sulfa (Sulfonamide Antibiotics) Rash Patient Active Problem List Diagnosis Code ??? Effusion of knee joint, left 719.06 ??? Effusion of knee joint 719.06 ? ? R knee arthroscopy, microfracture & medial patellar realignment procedure 02/12 Vicente 836.59 ??? Knee pain, right 719.46 ??? Recurrent dislocation of right patella - s/p Alaina osteotomy, medial imbrication, lateral release (02/10/14) 718.36 No current outpatient prescriptions on file prior to visit. No current facility-administered medications on file prior to visit. History Social History ??? Marital Status: Single Spouse Name: N/A Number of Children: N/A ??? Years of Education: N/A Occupational History ??? student Social History Main Topics ??? Smoking status: Passive Smoke Exposure - Never Smoker ??? Smokeless tobacco: Never Used Comment: Adults smoke outside ??? Alcohol Use: No ??? Drug Use: No ??? Sexual Activity: No Comment: N/a Other Topics Concern ??? Service No ??? Blood Transfusions No ??? Caffeine Concern No ??? Occupational Exposure No ??? Hobby Hazards No ??? Sleep Concern No ??? Stress Concern No ??? Weight Concern Yes ??? Special Diet No ??? Back Care No ??? Exercise No ??? Seat Belt No Social History Narrative Lives with mother and stepfather during school year and father in [place] during summer. Review of Systems Objective: Physical Exam Blood pressure 98/81, pulse 106, height 158.1 cm (5' 2.25), weight 92.08 kg (203 lb). Right Knee Exam Swelling: Mild Effusion: Yes Tenderness The patient is experiencing tenderness in the over screws. Range of Motion Extension: -5 Flexion: 130 Tests Patellar Apprehension: No Comments: Atrophy continues. Discoloration is in the pattern of her brace and is likely venous congestion. Skin temperature is normal. No moisture. Distal motor and sensory intact Imaging: Stable hardware. No complications. Appears healed. Assessment and Plan: Discuss progress with Amina at [facility] physical therapy. RTC in 8-12 weeks No x-ray Must become more aggressive with strengthening. Knows to call with questions. documented in this encounter Plan of Treatment Not on file documented as of this encounter Visit Diagnoses Diagnosis Recurrent dislocation of right patella - s/p Alaina osteotomy, medial imbrication, lateral release (02/10/14) Recurrent dislocation of lower leg joint documented in this encounter Care Teams Electronic Resources Librarian Relationship Specialty Start Date End Date Michelet Cramer MD [address] [place] [address] PCP - General 04/27/10 07/16/15 documented as of this encounter
--- OUTSIDE RECORDS SUMMARY | 2023-12-15 02:23 | XMS_ITS | Encounter Summary ---
Author Organization [facility] [place] [address] Care Team Providers Care Occupational Therapy Supervisor Name Role Phone Michelet Cramer MD Primary Care Provider [phone] Reason for Visit * Reason Onset Date Comments Results 07/28/2014 Encounter Details Date Type Department Care Team (Late st Contact Info) Description 07/28/2014 Telephone [place] [address] Benito Zhang MD [facility] DR [place] [address] Results Social History Tobacco Use Types Packs/Day [...] encounter Miscellaneous Notes * Telephone Encounter - Chichi Meredith RN - 08/05/2014 12:44 PM [address]T Discuss with Dr. Zhang and he will phone Ms. Muller to discuss treatment options. * Telephone Encounter - Chichi Meredith RN - 07/29/2014 11:07 AM EDT Discuss MRI results and Ms. Muller requests the ability to speak with Dr. Zhang by phone as opposedto coming in for office visit due to their length of travel. She reports that this was able to happen the last time. Inform that Dr. Zhang is away this week and that any conversation would need to occur on the following week. Ms. Muller is comfortable with this. * Telephone Encounter - Chichi Meredith RN - 07/29/2014 10:00 AM EDT Phone call to Ms. Muller to discuss MRI results - per Bucky Donaldson APRN MRI is showing abnormality of the patella and indicates concern for the patella displacing. She recommends follow up office visit todiscuss treatment options with Dr. Zhang. No answer at this time - message left requesting call back to [phone]. * Telephone Encounter - Annemarie De León - 07/28/2014 10:52 AM EDT What study is patient calling about? mri Per [facility] the study was done: 5.4.15 Per [facility] the results are final: yes Best number to reach the patient # Mehran Muller [phone] after 2PM today. Tomorrow until 2:30PM and Wed any time. I will forward your message to the team and someone will follow up with you within 48 hours. documented in this encounter Plan of Treatment Not on file documented as of this encounter Visit Diagnoses Not on filedocumented in this encounter Care Teams Occupational Therapy Supervisor Relationship Specialty Start Date End Date Michelet Cramer MD [address] [place] [address] PCP - General 04/27/10 07/16/15 documented as of this encounter
--- OUTSIDE RECORDS SUMMARY | 2023-12-15 02:23 | XMS_ITS | Encounter Summary ---
Author Organization [facility] Address [facility] [place] [address] Care Team Providers Care Underwriting Sales Representative Name Role Phone Michelet Cramer MD Primary Care Provider [phone] Encounter Details Date Type Department Care Team (Late st Contact Info) Description 03/03/2014 Orders Only [place] [address] Benito Zhang MD [facility] [place] [address] Patellofemoral disorder of right knee; Right knee pain Social History Tobacco Use Types [...] as of this encounter Results * XR knee bilateral 1 or 2 view (03/06/2014 2:09 PM EST) Anatomical Region Laterality Modality Knee Bilateral Radiographic Savana ging 03/06/2014 2:09 PM EST Addenda Addendum by Linwood Michaels MD on 04/03/2014 2:46 PM EST Addendum Begins TECHNIQUE: ??AP and lateral views of both knees. Left knee: There may be mild prepatellar soft tissue swelling. No sign of joint effusion or bony abnormality. Addendum Ends Addendum by BAILEY WYATT REPORT on 04/03/2014 2:46 PM EST Addendum Begins TECHNIQUE: ??AP and lateral views of both knees. Left knee: There may be mild prepatellar soft tissue swelling. No sign of joint effusion or bony abnormality. Addendum Ends Addendum by YOSELIN, UNSIGNED REPORT on 04/03/2014 10:45 AM EST Addendum Begins TECHNIQUE: ??AP and lateral views of both knees. Addendum Ends Impressions 03/06/2014 3:10 PM EST IMPRESSION: Status post tibial tubercle osteotomy. 2 Indwelling screws. Decrease in prepatellar soft tissue swelling and resolution of intra-articular gas. Small to moderate joint effusion present. Narrative 03/06/2014 3:10 PM EST EXAMINATION: KNEE BILATERAL 1 OR 2 VIEWS/BILAT CLINICAL HISTORY: R KNEE S/P SCOPE 02/10/14/ L KNEE PAIN ? LOOSE BODY TECHNIQUE: 4 views right knee COMPARISON: 02/10/2014 FINDINGS: Patient is status post tibial tubercle surgery/osteotomy subcutaneous and intra-articular gas has resolved. [id number] joint effusion present. Alignment anatomic. No sign of osteochondral injury.. Procedure Note Linwood Michaels MD / YOSELIN, UNSIGNED REPORT - 04/03/2014 EXAMINATION: KNEE BILATERAL 1 OR 2 VIEWS/BILAT CLINICAL HISTORY: R KNEE S/P SCOPE 02/10/14/ L KNEE PAIN ? LOOSE BODY TECHNIQUE: 4 views right knee COMPARISON: 02/10/2014 FINDINGS: Patient is status post tibial tubercle surgery/osteotomysubcutaneous and intra-articular gas has resolved. [id number] joint effusionpresent. Alignment anatomic. No sign of osteochondral injury.. IMPRESSION IMPRESSION: Status post tibial tubercle osteotomy. 2 Indwelling screws. Decrease in prepatellar soft tissue swelling and resolution of intra-articular gas.Small to moderate joint effusion present. Benito Zhang MD IMG DX ORDERABLES documented in this encounter Visit Diagnoses Diagnosis Patellofemoral disorder of right knee Unspecified disorder of lower leg joint Right knee pain Pain in joint, lower leg Right knee pain Pain in joint, lower leg documented in this encounter Care Teams Underwriting Sales Representative Relationship Specialty Start Date End Date Michelet Cramer MD [address] [place] [address] PCP - General 04/27/10 07/16/15 documented as of this encounter
--- OUTSIDE RECORDS SUMMARY | 2023-12-15 02:23 | XMS_ITS | Encounter Summary ---
Author Organization [facility] Address [facility] [place] [address] Care Team Providers Care Jointer Machine Operator Name Role Phone Michelet Cramer MD Primary Care Provider Encounter Details Date Type Department Care Team (Latest Contact Info) Description 09/16/2014 3:01 PM EDT - 09/16/2014 11:59 PM EDT Hospital Encounter XRay at [address] [place] [address] S/P left knee arthroscopy Social History Tobacco Use Types Packs/Day Years [...] 20-40-40-20 mcg/0.5 mL Suspension Once 12/18/2012 10/21/2015 docusate sodium (COLACE) 100 mg Capsule Take 1 capsule by mouth daily for 10 days. 10 capsule 0 09/09/2014 09/19/2014 acetaminophen (TYLENOL) 325 mg Tablet Take 2 tablets by mouth every 6 hours. 30 tablet 1 09/09/2014 07/01/2016 oxyCODONE (ROXICODONE) 5 mg Tablet Take 1 tablet by mouth every 4 hours as needed for Pain. 35 tablet 0 09/09/2014 10/30/2014 documented as of this encounter Plan of Treatment Not on file documented as of this encounter Procedures Procedure Name Priority Date/Time Associated Diagnosis Comments XR KNEE DIAGNOSTIC 1 OR 2 VIEW Routine 09/16/2014 3:07 PM EDT documented in this encounter Results * XR knee diagnostic 1 or 2 view (09/16/2014 3:07 PM EDT) Anatomical Region Laterality Modality Knee N/A Radiographic Savana ging 09/16/2014 3:07 PM EDT Narrative 09/16/2014 4:10 PM EDT EXAMINATION: KNEE 1 OR 2 VIEWS/LEFT CLINICAL HISTORY: Left Knee Pain TECHNIQUE: AP and lateral COMPARISON: 05/13/2014 FINDINGS: Since the prior study a left anterior tibial osteotomy has been performed. This is in appropriate alignment with 2 cannulated screws no evidence of immediate post procedure complication. The soft tissue changes consistent with the recent surgery. Procedure Note Katie Contreras MD - 09/16/2014 EXAMINATION: KNEE 1 OR 2 VIEWS/LEFT CLINICAL HISTORY: Left Knee Pain TECHNIQUE: AP and lateral COMPARISON: 05/13/2014 FINDINGS: Since the prior study a left anterior tibial osteotomy has been performed.This is in appropriate alignment with 2 cannulated screws no evidence ofimmediate post procedure complication. The soft tissue changes consistent with therecent surgery. Benito Zhang MD IMG DX ORDERABLES documented in this encounter Visit Diagnoses Diagnosis S/P left knee arthroscopy Other postprocedural status documented in this encounter Care Teams Jointer Machine Operator Relationship Specialty Start Date End Date Michelet Cramer MD [address] [place] [address] PCP - General 04/27/10 07/16/15 documented as of this encounter
--- OUTSIDE RECORDS SUMMARY | 2023-12-15 02:23 | XMS_ITS | Encounter Summary ---
Author Organization [facility] [address] Care Team Providers Care Textile Artist Name Role Phone Michelet Cramer MD Primary Care Provider [phone] Reason for Visit * Reason Onset Date Comments Results 11/29/2013 Encounter Details Date Type Department Care Team (Late st Contact Info) Description 11/29/2013 [place] [id number] Benito Zhang MD [facility] [address] [place] [address] Results Social History Tobacco Use Types Packs/Day [...] Telephone Encounter - Chichi Meredith RN - 11/29/2013 9:20 AM EDT Phone call to Samreen's mother to inform that radiology results are available - brief review of radiologist impressions - will request that Mr. De La Fuente PAC phone with more thorough explanation. * Telephone Encounter - Minerva Arevalo - 11/29/2013 8:55 AM EDT Patients Mother Winsome Muller, called to see if we could call with the results of the MRI done 11/28/13. If before 2PM please call [phone] ask for Winsome Muller if after 2PM call cell # [phone]. documented in this encounter Plan of Treatment Not on file documented as of this encounter Visit Diagnoses Not on filedocumented in this encounter Care Teams Textile Artist Relationship Specialty Start Date End Date Michelet Cramer MD [address] [place] [address] PCP - General 04/27/10 07/16/15 documented as of this encounter
--- OUTSIDE RECORDS SUMMARY | 2023-12-15 02:23 | XMS_ITS | Encounter Summary ---
Author Organization [facility] [place] [address] Care Team Providers Care Ice Rink Attendant Name Role Phone Michelet Cramer MD Primary Care Provider [phone] Reason for Visit * Reason Onset Date Comments Results 12/03/2013 Encounter Details Date Type Department Care Team (Late st Contact Info) Description 12/03/2013 [place] [id number] Benito Zhang MD [facility] [place] [address] Results Social History Tobacco Use Types Packs/Day [...] Telephone Encounter - Chichi Meredith RN - 12/05/2013 1:14 PM EDT Phone call to Samreen's mother - recommendation from Dr. Zhang is that she come in for follow up todiscuss treatment options based on MRI results. She will call back when she is done with work to set up office appointment. * Telephone Encounter - Kasie Montelongo - 12/05/2013 8:21 AM EDT Patient's mother Winsome called back and states someone was supposed to call her on Monday per a conversation with ZOILA Day on Monday. Please call her back at work at [phone]. * Telephone Encounter - Samantha Rausch RN - 12/03/2013 10:59 AM EDT Forwarded message to Dr. Zhang. * Telephone Encounter - Amalia Gordon - 12/03/2013 8:07 AM EDT Samreen's mother called this morning, she would like a call back from Dr. Zhang with the MRI results of Samreen.Work number [phone] cell [phone] documented in this encounter Plan of Treatment Not on file documented as of this encounter Visit Diagnoses Not on filedocumented in this encounter Care Teams Ice Rink Attendant Relationship Specialty Start Date End Date Michelet Cramer MD [address] [place] [address] [place] [address] PCP - General 04/27/10 07/16/15 documented as of this encounter
--- OUTSIDE RECORDS SUMMARY | 2023-12-15 02:23 | XMS_ITS | Encounter Summary ---
Author Organization [facility] Address [facility] [place] [address] Care Team Providers Care Diesel Engine Tester Name Role Phone Virginia Cramer MD Primary Care Provider [phone] Encounter Details Date Type Department Care Team (Latest Contact Info) Description 09/08/2014 6:27 AM EDT - 09/09/2014 12:58 PM EDT Hospital Encounter Pediatric [place] [id number] Jennifer Zhang MD [facility] [place] [address] Effusion of knee joint, left (Primary Dx) Discharge Disposition: Home Social History Tobacco Use [...] Sign Reading Time Taken Comments Blood Pressure 112/61 09/09/2014 4:00 AM EDT Pulse 88 09/09/2014 4:00 AM EDT Temperature 36.7 ??C (98.1 ??F) 09/09/2014 4:00 AM ED T Respiratory Rate 16 09/09/2014 4:00 AM EDT Oxygen Saturation 98% 09/09/2014 4:00 AM EDT Inhaled Oxygen Concentration - - Weight 97 kg (213 lb 13.5 oz) 09/08/2014 6:55 AM EDT Height 160 cm (5' 2.99) 09/08/2014 6:55 AM EDT Body Mass Index 37.89 09/08/2014 6:55 AM EDT Body Mass Index Percentile 99.61% 09/08/2014 6:5 5 AM EDT Growth Chart: CDC (Girls, 2- 20 Years) documented in this encounter Discharge Summaries * Hema Parker - 09/09/2014 11:45 AM EDT Discharge Summary Patient Name: Samreen Martinez Patient Age: 14 y.o. Language: British Race: White Ethnicity: Not nor Admit date: 09/08/2014 Discharge date and time: 09/09/2014 Attending Physician: Jennifer Zhang MD Discharge Physician: Jennifer Zhang MD Follow-up Recommendations for Providers: Future Appointments Date Time Provider Department Center 09/16/2014 3:30 PM Jennifer Zhang MD [facility] None Inpatient Provider Contact Information: Dr. Jennifer Zhang MD Trauma: [phone] After hours and weekends, call [facility] [employer] Member, , and have Orthopedic resident paged. Discharge Diagnoses (Hospital Problems) and Secondary Diagnoses (Chronic Problems): Active Hospital Problems Diagnosis ??? s/p left knee Shira osteotomy and lateral release 09/08/14 ([facility]) Resolved Hospital Problems Diagnosis Date Resolved No resolved problems to display. Active Non-Hospital Problems Diagnosis ??? Knee pain, right ? ? R knee arthroscopy, microfracture & medial patellar realignment procedure 02/12 [facility] ??? Effusion of knee joint ??? Effusion of knee joint, left Operations/Major Procedures: 09/08/2014 Surgeon(s) and Role: * Jennifer Zhang MD - Primary * Sujatha Rand MD History of Presentation: Samreen Martinez is a 14 y.o. woman who is followed in clinic for recurrent bilateral patellar dislocations. She underwent a right knee Shira osteotomy in January with good results. She continued to have difficulty with her left knee with a positive J sign and an MRI showing persistently subluxed patella. After discussion of the treatment options and the risks and benefits of each option,she and her parents selected to proceed with operative intervention. Hospital Course: Samreen Martinez was admitted from same day surgery for treatment of the above issue. On HD#1 she was taken to surgery for the above procedure. She tolerated the procedure and didwell post-operatively. Her pain was well controlled on oral medications and she was tolerating PO intake. The patient was referred to PT for mobility training - touchdown weight bearing of left leg. She did not have a bowel movement prior to discharge but was passing flatus and was taking po without difficulty. On POD#1 the patient was medically clear with stable vital signs and determined safe for discharge to home. Vital Signs at Discharge: Weight: Wt Readings from Last 1 Encounters: 09/08/ 97 kg (213 lb 13.5 oz) (99.32 %*) * Growth percentiles are based on CDC 2-20 Years data. Height: Ht Readings from Last 1 Encounters: 09/08/14 160 cm (5' 2.99) (44.44 %*) * Growth percentiles are based on CDC 2-20 Years data. HC: HC Readings from Last 1 Encounters: No data found for HC BMI: Body mass index is 37.89 kg/(m^2). Last value Range last 24 hrs Temperature Temp: 36.7 ??C (98.1 ??F) Temp: [36.5 ??C (97.7 ??F)-36.9 ??C (98.4 ??F)] Heart Rate Heart Rate: 88 Heart Rate: [86-94] Blood Pressure BP: 112/61 mmHg @lhmnobi56@ Respiratory Rate Resp: 16 Resp: [16-18] SpO2 SpO2: 98 % @skceghdn77@ Art BP BP (Arterial Line): -- Functional and Cognitive Status: Alert and oriented x 4. No changes in cognitive status during hospital stay. Ambulating with crutches. Important Studies and Lab Data: None Transfusions: No Studies: No results found. Discharge Conditions/Prognosis: Stable, awake, and alert. Mobilizing with walker/crutches, pain controlled on oral medications. Discharge to: Home Updated Allergies/ADRs: Allergies Allergen Reactions ??? Sulfa (Sulfonamide Antibiotics) Rash Immunizations Given this Hospitalization: Immunization History Administered Date(s) Administered ??? Influenza PF, Split 02/11/2014 Discharge Medications: Your Medications New Medications Dose Details acetaminophen 325 mg Tab Commonly known as: TYLENOL Take 2 tablets by mouth every 6 hours. 650 mg Quantity: 30 tablet Refills: 1 docusate sodium 100 mg Cap Commonly known as: COLACE Take 1 capsule by mouth daily for 10 days. 100 mg Quantity: 10 capsule Refills: 0 oxyCODONE 5 mg Tab Commonly known as: ROXICODONE Take 1 tablet by mouth every 4 hours as needed for Pain. 5 mg Quantity: 35 tablet Refills: 0 Smoking Status at Discharge: History Smoking status ??? Passive Smoke Exposure - Never Smoker Smokeless tobacco ??? Never Used Comment: Adults smoke outside Instructions for Rehab Providers or PCP: None at this time, please call with questions. Instructions Given to Patient at Discharge: Patient Instructions Activity level: 1. Touchdown weight bearing. Remember to keep your Left leg elevated as much as possible to decrease swelling and control pain. 2. You must wear your knee immobilizer at all times at least until your follow up appointment. Diet: You may return to your usual diet, but increase your fluids and fiber intake to keep you hydrated and your bowels soft. To help with wound healing increase your intake of high protein foods andfluids Medications: 1. The pain medication you are on can cause constipation, so increase your intake of fluids and fiber while you are taking them. You should also take the stool softener that was ordered, Sennakot, tofacilitate a bowel movement. Miralax, an akun-hdz-dmnczky medication can also be taken to help if needed to combat constipation. 2. If you need a renewal on your narcotic pain medication, you need to give the Orthopedic clinic enough time to process your request. This can take up to three days, so plan accordingly. 3. Continue to take the tylenol around the clock for the next 10 days. It can be effective in controlling pain alone with your other medications. 4. Do NOT take any Non-steroidal anti-inflammatory medications (NSAIDS) such as Advil, aleve, motrin, as these can slow bone healing. Shower/Bath: You may shower on post op day 4 (Monday). Keep the leg covered in a bag so that the knowles bandage does not get wet. If it does get wet, gently pat it dry. Be careful not to bend your leg or stand on it while in the shower. It's possible that sponge baths may be easier for you. Do not put your leg completely under water (bath, pool, hong, etc) until your wounds are completely healed. This usually takes at least 3 weeks. Wound Care: 1. You can take off your CASEY bandage on . 2. You should take off your knowles mepilex dressing next Monday. 3. If there is any ongoing drainage at that time please cover the wound with dry sterile gauze and replace it daily until the drainage stops. 4. You have no floresita or stitches to be removed. Call your doctor (#[phone]) if you develop: 1. fevers greater than 100.5 2. severe nausea or vomiting 3. increasing pain not controlled by pain medications 4. increasing redness or drainage from incisions 5. Change in sensation FOLLOWUP APPOINTMENTS: 1. You will have followup appointments at [facility] as indicated in Future Appointment and Orders. Youwill have an xray prior to those appointments so please come to Radiology, desk 3T, 1 hour BEFORE your appointment for those x-rays. 2. If you are being discharged over the weekend or at night and do not have a scheduled appointmentwith Orthopaedics, you should be notified about your appointment within the next 1-2 days. Please call if you do not hear about an appointment within that timeframe, as your follow-up is important to us. Future Appointments Date Time Provider Department Center 09/16/2014 3:30 PM Jennifer Zhang MD [facility] None General Instructions None Future Appointments and Orders Future Appointments Provider Department Dept Phone 09/16/2014 3:30 PM Jennifer Zhang MD Orthopaedics [phone] Joint Appt ORTHO, [facility]STIONNAIRE [facility] D Orthopaedics [phone] Future Orders Complete By Expires XR knee 4 or more views [[id number] Custom] 09/08/2014 (Approximate) 09/08/2015 Process Instructions: Scheduling Instructions: Questions: Where will study be performed?: [facility] Laterality: Left Portable exam?: Reason for exam and clinical history: s/p Tibial osteotomy Comment - To be done at postoperative follow up Other pertinent information: Area to be examined: Is the patient ?: Unknown Stat read required?: Date of injury if applicable: Requested Time: Should this service/procedure be billed to the research sponsor?: Primary Care Provider: VIRGINIA CRAMER MD [phone] Discharge References/Attachments None documented in this encounter Discharge Instructions * Patient Instructions* Hema Parker Camilo - 09/09/2014 11:35 AM EDT Activity level: 1. Touchdown weight bearing. Remember to keep your Left leg elevated as much as possible to decrease swelling and control pain. 2. You must wear your knee immobilizer at all times at least until your follow up appointment. Diet: You may return to your usual diet, but increase your fluids and fiber intake to keep you hydrated and your bowels soft. To help with wound healing increase your intake of high protein foods andfluids Medications: 1. The pain medication you are on can cause constipation, so increase your intake of fluids and fiber while you are taking them. You should also take the stool softener that was ordered, Sennakot, tofacilitate a bowel movement. Miralax, an kxlf-uwp-kywilfp medication can also be taken to help if needed to combat constipation. 2. If you need a renewal on your narcotic pain medication, you need to give the Orthopedic clinic enough time to process your request. This can take up to three days, so plan accordingly. 3. Continue to take the tylenol around the clock for the next 10 days. It can be effective in controlling pain alone with your other medications. 4. Do NOT take any Non-steroidal anti-inflammatory medications (NSAIDS) such as Advil, aleve, motrin, as these can slow bone healing. Shower/Bath: You may shower on post op day 4 (Monday). Keep the leg covered in a bag so that the knowles bandage does not get wet. If it does get wet, gently pat it dry. Be careful not to bend your leg or stand on it while in the shower. It's possible that sponge baths may be easier for you. Do not put your leg completely under water (bath, pool, hong, etc) until your wounds are completely healed. Th is usually takes at least 3 weeks. Wound Care: 1. You can take off your CASEY bandage on . 2. You should take off your knowles mepilex dressing next Monday. 3. If there is any ongoing drainage at that time please cover the wound with dry sterile gauze and replace it daily until the drainage stops. 4. You have no floresita or stitches to be removed. Call your doctor (#[phone]) if you develop: 1. fevers greater than 100.5 2. severe nausea or vomiting 3. increasing pain not controlled by pain medications 4. increasing redness or drainage from incisions 5. Change in sensation FOLLOWUP APPOINTMENTS: 1. You will have followup appointments at [facility] as indicated in Future Appointment and Orders. Youwill have an xray prior to those appointments so please come to Radiology, desk 3T, 1 hour BEFORE your appointment for those x-rays. 2. If you are being discharged over the weekend or at night and do not have a scheduled appointmentwith Orthopaedics, you should be notified about your appointment within the next 1-2 days. Please call if you do not hear about an appointment within that timeframe, as your follow-up is important to us. Future Appointments Date Time Provider Department Center 09/16/2014 3:30 PM Jennifer Zhang MD [facility] None documented in this encounter Medications at Time of Discharge [...] 09/09/2014 10/30/2014 documented as of this encounter Progress Notes * Katey Barbosa, PT - 09/09/2014 10:30 AM EDT Physical Therapy Visit 2 Patient profile: Pt. is a 14 y.o. female admitted on 09/08/2014 by Jennifer Eckert MD for knee arthroscopy and Tibia shira osteotomy. PMH: Past Medical History Past Medical History Diagnosis Date ??? Fracture of distal femur Per Mom, fx of lower femur and upper (?) tibia, long leg case Past Surgical History Past Surgical History Procedure Laterality Date ??? Knee scope, diagnostic 08/31/2010 ARTHROSCOPY KNEE, DIAGNOSTIC performed by BRENDAN NAVARRO at [facility] ??? Apply long leg cast 08/31/2010 CAST APPLICATION, LONG LEG (THIGH TO TOES) performed by BRENDAN NAVARRO at [facility] ??? Knee scope, shave articular cart 08/31/2010 ARTHROSCOPY KNEE CHONDROPLASTY performed by BRENDAN NAVARRO at [facility] ??? Knee scope, drill oste diss+int fix 08/31/2010 ARTHROSCOPY KNEE, DRILLING & FIXATION OF OCD performed by BRENDAN NAVARRO at [facility] ??? Fix unstable patella, exten realign 12/16/2010 PATELLAR REALIGNMENT performed by BRENDAN NAVARRO at [facility] ??? Knee scope, remv loose body 12/16/2010 ARTHROSCOPY KNEE REMOVE LOOSE BODY performed by JENNIFER ZHANG at [facility] ??? Knee scope, abrasn arthroplasty 12/16/2010 ARTHROSCOPY KNEE, MULTIPLE DRILLING, MICROFRACTURE performed by JENNIFER ZHANG at [facility] ??? Apply long leg cast 12/16/2010 CAST APPLICATION, LONG LEG (THIGH TO TOES) performed by JENNIFER ZHANG at [facility] ??? Knee scope, part synovect 04/05/2011 ARTHROSCOPY KNEE SYNOVECTOMY LIMITED performed by JENNIFER ZHANG at [facility] ??? Drain/inject large joint/bursa 04/05/2011 ARTHROCENTESIS, ASPIRATION OR INJECTION, MAJOR JOINT OR BURSA, KNEE performed by JENNIFER ZHANG at [facility] ??? Knee scope, remv loose body 02/13/2012 ARTHROSCOPY KNEE REMOVE LOOSE BODY performed by JENNIFER ZHANG at [facility] ??? Arthrotomy/explore/treat knee joint 02/13/2012 ARTHROTOMY, KNEE WITH EXPLORATION performed by JENNIFER ZHANG at [facility] ??? Revision of unstable patella 02/13/2012 REPAIR DISLOCATING PATELLA performed by JENNIFER ZHANG at [facility] ??? Knee scope, abrasn arthroplasty 02/13/2012 ARTHROSCOPY KNEE, MULTIPLE DRILLING, MICROFRACTURE performed by JENNIFER ZHANG at [facility] ??? Osteotomy tibia Right 02/10/2014 OSTEOTOMY, TIBIA performed by Jennifer Zhang MD at [facility] ??? Knee scope, remv loose body Right 02/10/2014 ARTHROSCOPY KNEE REMOVE LOOSE BODY performed by Jennifer Zhang MD at [facility] ??? Revision of unstable patella Right 02/10/2014 REPAIR DISLOCATING PATELLA performed by Jennifer Zhang MD at [facility] Social History: Patient lives with their family in 1 level home. She splits her time at mother and father's home. Pt accompanied by her mother, father, stepmother (she also calls mom) and grandmother. She is the eldest of many siblings. Stairs: 3 -5 with a rail to enter. Baseline Mobility: Has lots of experience using axillary crutches. Equipment at home: crutches Precautions/Special Considerations: L LE TDWB (20% body weight) and brace locked at 0 deg extensionat all times, FALL RISK Subjective: Where are the stairs? Objective: Pt seen for functional mobility today on 5E/Pediatrics. Pain: 05/27 Vital Signs: VSS Mental Status: alert, oriented to person, place, and time Musculoskeletal: ROM: Impaired. Miryam knee brace donned and locked at 0. Strength: Impaired. Unable to lift left leg with brace on at this time. Uses 2 hands to help move Left leg in brace during bed mobility. Sensation: intact to LT L LE. Adjusted brace prior to getting OOB as it appeared to have slid. Education in regards to proper alignment. Bed Mobility: Brace donned appropriately and continues to be locked prior to getting out of bed. Supine to Sit: indep Sit to Supine: indep Transfers: Sit to Stand: indep with axillary crutches Stand to Sit: indep with axillary crutches Gait: Distance: 150ft Device used: axillary crutches Level of assist: close supervision Gait pattern: Able to maintain NWB to TDWB on L LE with leg in [place] brace locked at 0 deg extension. Swing through gait pattern. Long strides. Cues to slow down. Pt appears steady. Pt. to utilize axillary crutches and contact guard for ambulation with nursing. Stairs: Up/down 6 steps with 1 hand on railing and 1 hand on crutch with close supervision/CGA. Pt did very well. Able to verbalize and demo technique with maintaining precautions. Balance: Sitting: Good Standing: Fair, needs axillary crutches to maintain balance. Enc putting cryocuff back on. Informed Consent: The family and patient understands and agrees to the PT treatment plan and goals. Education: family and patient have been educated on Bed mobility, Transfers, Assistive device/technique, Positioning, Safety , Precautions/protocol and Gait and verbalize and demonstrate understanding. Patient status, treatment, and mobility recommendations discussed with nursing. Assessment: Pt tolerated today???s treatment session well. Demo and met all inpatient PT goals. Pt demo safe stair climbing. Cues to slow down. Family and pt receptive. No further questions/concerns.No further equipment needs. Goals: To be achieved by discharge, 1. Pt. to demonstrate knowledge of precautions and weight bearing limitations during functional activities. MET 2. Pt. to ambulate 100 feet; with a axillary crutches, and supervision. MET 3. Pt. to ambulate up/down 5 step/stairs with contact guard, using axillary crutches. MET 4. Family or caregiver to demonstrate understanding of therapeutic interventions to support the care of the patient. MET Plan: Met goals. Home with family support when medically ready. Equipment needs: Patient has all necessary equipment Discharge Recommendations: do not anticipate any PT needs No other consults recommended at this time Total time spent with patient: 25 minutes Total timed interventions: 25 minutes LUPILLO Barbosa, PT Evaluation: 09/08/2014 Pager: [phone] Physical Therapy Rehabilitation Department * Sujatha Rand MD - 09/09/2014 6:42 AM EDT Orthopaedic Surgery Progress Note: ID: Samreen Martinez is a 14 y.o. woman with lateral patellar instability Surgery: Left knee arthroscopy and Shira osteotomy with lateral release Attending: Dr. Zhang Date: 09/08/14 Subjective and 24 Hour Events: Pain well controlled. Mobilized with PT yesterday but got a little light-headed. Has been mobilizing overnight. No acute overnight events. Sleeping this AM. Last value Range last 24 hrs Temperature Temp: 36.7 ??C (98.1 ??F) Temp: [36.1 ??C (97 ??F)-36.9 ??C (98.4 ??F)] Heart Rate Heart Rate: 88 Heart Rate: [86-115] Blood Pressure BP: 112/61 mmHg BP: (112-141)/(61-86) Respiratory Rate Resp: 16 Resp: [16-18] SpO2 SpO2: 98 % SpO2: [96 %-100 %] Intake/Output Summary (Last 24 hours) at 09/09/14 0645 Last data filed at 09/09/14 0400 Gross per 24 hour Intake 3173 ml Output 2250 ml Net 923 ml Well appearing, sleeping Breathing comfortably LLE: Dressing c/d/i. Brace in place, locked in extension. Foot warm. A/P: Samreen Martinez is a 14 y.o. woman POD#1 s/p left knee arthroscopy and Shira osteotomy. Doing well post-op. Continue mobilizing with PT today, just needs to clear stairs. D/c home when pain controlled on orals and clears PT. Plan: Mobilize with PT, TDWB LLE [place] brace locked in extension at all times No sutures or floresita to be removed Will remove CASEY wrap POD#3, mepilex x7 days Ancef x24 hrs Pain control with orals D/c IVF, regular diet SCDs, no pharmacologic DVT prophylaxis NBOs Dispo: home when pain controlled on orals and clears PT, likely today Follow-up with Dr. Zhang as scheduled with repeat x-rays Future Appointments Date Time Provider Department Center 09/16/2014 3:30 PM Jennifer Zhang MD [facility] None * Hema Parker - 09/08/2014 1:44 PM EDT Orthopaedic Surgery Post-Op Check Note Surgery: Knee arthroscopy, Tibia shira osteotomy Patient Active Problem List Diagnosis Date Noted ??? s/p left knee Shira osteotomy and lateral release 09/08/14 ([place]) 09/08/2014 ??? 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 Knee pain, right 01/12/2012 ? ? R knee arthroscopy, microfracture & medial patellar realignment procedure 02/12 [place] 09/20/2011 ??? Effusion of knee joint 08/16/2010 ??? Effusion of knee joint, left 07/14/2010 S/Events: Denies CP, SOB, nausea, vomiting, abd pain. Pain well controlled. Doing very well and getting readyto mobilized with PT. O: Vitals: Temp: [36.1 ??C (97 ??F)-36.9 ??C (98.4 ??F)] Heart Rate: [86-115] Resp: [16-18] BP: (122-141)/(67-86) SpO2: [98 %-100 %] I/O this shift: In: 1476 [I.V.:1476] Out: 100 [Blood:100] Exam: General: NAD, awake/alert Resp: Breathing comfortably Card: RRR Abd: S/NT/ND LLE: Dressing c/d/i. In knee immobilizer. Motor intact to EHL, FHL, TA. Sensation intact in foot. Foot wwp with palp DP pulse. A/P: 14 y.o. year old female POD#0 s/p left knee arthroscopy and tibial shira osteotomy, progressingwell with stable vitals and uop. - Orders reviewed - continue all post-operative care * Florence Avila - 09/08/2014 9:09 AM EDT Patient's Name: Samreen Martinez Patient's Age: 14 years old Accompanied by: Mother, father, stepmother (whom she also calls mom) and grandmother. Procedure: Arthroscopy of the knee Medical team Surgeon: Jennifer Zhang Anesthesia: Kailyn Castle/Annalise Garcia History obtained: Has had several surgeries on her knee in the past. Has many siblings. Per family,typically becomes tearful and very anxious prior to induction but is always cooperative. Comfort items: Stuffed toy bear known as black bear. Development: On target. Anxiety triggers: Anesthesia, surgery, anesthesia and oxygen masks. Patient's understanding of visit/diagnosis: Samreen understood that she was here today for surgery on her knee. She knew she would be asleep for the surgery and expected to get an IV for going off to sleep. Preparation provided: (x) To patient ( ) To parent(s) This CCLS spoke with Samreen during her IV placement and assessed her understanding. Samreen did not seem to need much preparation due to her extensive past experiences. Thus, focus was placed on following Samreen's typical routine for surgery in order to create some predictability and a greater senseof control in Samreen. Distraction: Talking, humor and parental presence. Coping ( ) High (x) Moderate ( ) Low Samreen was very cooperative and appeared calm during IV attempts. However, after the second IV attempt failed, Samreen became very tearful and became even more upset when a mask induction plan was made. Samreen calmed some when picking a scent for her mask and talking with this CCLS. Samreen seemed togreatly benefit from humor as well as her father's presence during induction. Parental/Guardian involvement (x) Accompanied child back. ( ) Accompanied child back with some reluctance. ( ) Did not accompany child back. All of Samreen's family member's were appropriately involved and supportive of Samreen. Per Samreen, her father is the one who always accompanies her during induction. Induction process (x) Patient was cooperative (x) Patient tolerated induction (mask, transition to OR) ( ) Pt. Required physical assistance Samreen was very tearful throughout induction. She received some laughing gas in the OR to help relax her and then received an IV. Samrene was fully cooperative but seemed very upset and tearful and was difficult to soothe. Samreen was not able to identify any particular worries but did state that shedislikes the mask and benefited from just breathing through the circuit. Pre-med Recommended: Yes Given this time: No Samreen would likely benefit from a pre-med to help her cope with the process of induction. Preferred method of induction: ( ) Mask (x) IV Recovery: Pt. Not yet out of the OR. Recommendations/Follow up: Support Samreen and her family in coping with the hospital setting and future procedures as needed. Samreen seems to benefit from parental presence as well as direct support from [facility]. This CCLS will talk with Samreen during recovery, if she is comfortable and alert enough to do so, in order to better assess Samreen's concerns and possible needs for future procedures.Samreen may also benefit from learning some new relaxation and coping techniques. Please feel free to contact [facility] for any additional services or information. USHA Velázquez, CCLS Certified Protective Signal Superintendent Office: [phone] Pager: [phone] documented in this encounter H&P Notes * Jennifer Zhang MD - 09/08/2014 10:04 AM EDT The patient's history and physical exam have been reviewed and completed. There has been no interval change from that of the pre-operative history and physical exam done within the last 30 days. * Jennifer Zhang MD - 09/08/2014 6:12 AM EDT Patient Name: Samreen Martinez Patient Age: 14 y.o. Birthdate: 2000 Admit date: (Not on file) Attending Physician: Jennifer Zhang MD See scanned document for pre-procedural H&P. documented in this encounter Miscellaneous Notes * Plan of Care - Maya Andrews, RN - 09/09/2014 1:06 PM EDT Problem: Peds General Plan of Care Goal: Plan of Care Review Outcome: Outcome (s) achieved Date Met: 09/09/14 09/08/14201909/09/14 0431 09/09/14 0800 Plan of Care Review Plan of Care Outcome Status ongoing (interventions implemented as appropriate) -- -- Progress -- progress toward functional goals as expected -- Coping/Psychosocial Response Interventions Plan of Care Reviewed with -- -- patient;mother Prior to discharge I have completed the followin) If the patient had any home medications being stored in our medication room I have ensured that they have been returned. 2) Reviewed the discharge navigator and documented all LDA's appropriately. 3) Confirmed patient assessment for flu/pneumococcal vaccination and eligibility, documented administration and/or patient refusal as appropriate. 4) Added nursing instructions and/or health information to the multidisciplinary notes. 5) Printed the After Visit Summary (AVS) and given to the patient or hostess party sales representative. 6) If VNA was ordered, I faxed the discharge summary (not the AVS) to the VNA. I have provided written discharge instructions and/or AVS to mother. Participants have stated and/or demonstrated understanding of the followin) Discharge instructions. 2) Follow up visit plan. 3) Signs and symptoms to call primary doctor. 4) Where to obtain any medical supplies if needed (if no, contact [facility]). 5) Discharge medication plan. 6) Prescriptions: ( ) Have been filled and medications are in hand ( ) Have been called in or electronically sent by MD to local pharmacy and family has confirmed that the pharmacy has prescriptions and are able to fill them. (x ) Paper scripts in hand and family has confirmed that the pharmacy is able to fill them. ( ) No prescriptions needed. Additional Nursing Comments: VSS and afebrile. +CSM to LLE. Ambulating well with crutches. Pain controlled well with po pain meds. PIV dc'd with no issues. Tolerating intake well with good uop. No n/v. Mother and step mother at bedside. Appropriate with care of patient. Patient ready to be discharged home with family. Maya Andrews RN Goal: Peds Individualization and Mutuality Outcome: Outcome (s) achieved Date Met: 09/09/14 09/08/14 1337 09/08/142019 Individualization Individualize the Plan of Care: -- ongoing (interventions implemented as appropriate) Mutuality/Individual Preferences What questions/concerns do you/child have about you/your child's health or care? none -- What information would help us to give you/your child more personalized care? none -- Goal: Infection Control Outcome: Outcome (s) achieved Date Met: 09/09/14 09/08/14201909/09/14 0800 Safety Interventions Isolation Precautions -- standard precautions maintained Infection Prevention environmental surveillance;promote handwashing;rest/sleep promoted;nutrition promoted;hydration promoted -- Coping/Psychosocial Response Interventions Counseling goal setting facilitated;problem solving facilitated;understanding of situation facilitated;reassurance provided;emotional support provided;calming techniques promoted -- Goal: Discharge Needs Assessment Outcome: Outcome (s) achieved Date Met: 09/09/14 09/08/142019 Discharge Needs Assessment Concerns to be Addressed no discharge needs identified Readmission Within the Last 30 Days no previous admission in last 30 days Living Environment Transportation Available car Problem: Pain, Acute (Pediatric) Goal: Identify Signs and Symptoms and Related Risk Factors Signs and symptoms and related risk factors are identified upon initiation of Human Response Clinical Practice Guideline (CPG) Outcome: Outcome (s) achieved Date Met: 09/09/14 Goal: Acceptable Pain Control/Comfort Level Patient will demonstrate the desired outcomes. Outcome: Outcome (s) achieved Date Met: 09/09/14 09/09/14 1301 Pain, Acute (Pediatric) Acceptable Pain Control/Comfort Level achieves outcome Problem: Fall/Trauma/Injury Risk (Pediatric) Goal: Identify Signs and Symptoms and Related Risk Factors Signs and symptoms and related risk factors are identified upon initiation of Human Response Clinical Practice Guideline (CPG) Outcome: Outcome (s) achieved Date Met: 09/09/14 Goal: Absence of Trauma/Injury/Falls Patient will demonstrate the desired outcomes. Outcome: Outcome (s) achieved Date Met: 09/09/14 09/09/14 1301 Fall/Trauma/Injury Risk (Pediatric) Absence of Trauma/Injury/Falls achieves outcome * Initial Assessments - Rola Babcock OT - 09/09/2014 11:48 AM EDT Occupational Therapy Evaluation Patient profile: Samreen Martinez is a 14 y.o. female patient of Jennifer Eckert MD, admitted on 09/08/2014 for knee arthroscopy and Tibia shira osteotomy. Past Medical History Diagnosis Date ??? Fracture of distal femur Per Mom, fx of lower femur and upper (?) tibia, long leg case Past Surgical History Procedure Laterality Date ??? Knee scope, diagnostic 08/31/2010 ARTHROSCOPY KNEE, DIAGNOSTIC performed by BRENDAN NAVARRO at [facility] OR ??? Apply long leg cast 08/31/2010 CAST APPLICATION, LONG LEG (THIGH TO TOES) performed by BRENDAN NAVARRO at [facility] OR ??? Knee scope, shave articular cart 08/31/2010 ARTHROSCOPY KNEE CHONDROPLASTY performed by BRENDAN NAVARRO at [facility] OR ??? Knee scope, drill oste diss+int fix 08/31/2010 ARTHROSCOPY KNEE, DRILLING & FIXATION OF OCD performed by BRENDAN NAVARRO at [facility] ??? Fix unstable patella, exten realign 12/16/2010 PATELLAR REALIGNMENT performed by BRENDAN NAVARRO at [facility] ??? Knee scope, remv loose body 12/16/2010 ARTHROSCOPY KNEE REMOVE LOOSE BODY performed by JENNIFER ZHANG at [facility] OR ??? Knee scope, abrasn arthroplasty 12/16/2010 ARTHROSCOPY KNEE, MULTIPLE DRILLING, MICROFRACTURE performed by JENNIFER ZHANG at [facility] OR ??? Apply long leg cast 12/16/2010 CAST APPLICATION, LONG LEG (THIGH TO TOES) performed by JENNIFER ZHANG at [facility] OR ??? Knee scope, part synovect 04/05/2011 ARTHROSCOPY KNEE SYNOVECTOMY LIMITED performed by JENNIFER ZHANG at [facility] OR ??? Drain/inject large joint/bursa 04/05/2011 ARTHROCENTESIS, ASPIRATION OR INJECTION, MAJOR JOINT OR BURSA, KNEE performed by JENNIFER ZHANG at [facility] OR ??? Knee scope, remv loose body 02/13/2012 ARTHROSCOPY KNEE REMOVE LOOSE BODY performed by JENNIFER ZHANG at [facility] OR ??? Arthrotomy/explore/treat knee joint 02/13/2012 ARTHROTOMY, KNEE WITH EXPLORATION performed by JENNIFER ZHANG at [facility] OR ??? Revision of unstable patella 02/13/2012 REPAIR DISLOCATING PATELLA performed by JENNIFER ZHANG at [facility] OR ??? Knee scope, abrasn arthroplasty 02/13/2012 ARTHROSCOPY KNEE, MULTIPLE DRILLING, MICROFRACTURE performed by JENNIFER ZHANG at [facility] OR ??? Osteotomy tibia Right 02/10/2014 OSTEOTOMY, TIBIA performed by Jennifer Zhang MD at [facility] ??? Knee scope, remv loose body Right 02/10/2014 ARTHROSCOPY KNEE REMOVE LOOSE BODY performed by Jennifer Zhang MD at [facility] OR ??? Revision of unstable patella Right 02/10/2014 REPAIR DISLOCATING PATELLA performed by Jennifer Zhang MD at [facility] OR ??? Osteotomy tibia Left 09/08/2014 OSTEOTOMY, TIBIA performed by Jennifer Zhang MD at [facility] OR ??? Knee scope, diagnostic Left 09/08/2014 ARTHROSCOPY KNEE, DIAGNOSTIC performed by Jennifer Zhang MD at [facility] OR Social History: Patient lives with her family in 1 level home. She splits her time at mother and father's home. Pt accompanied by her mother and stepmother during OT eval. She is the eldest of many siblings. Pt has many pets at home Stairs: 3 -5 with a rail to enter. Tub shower with no seat. Discussed options for shower seats withfamily; after pt is cleared to shower Baseline Mobility: Has lots of experience using axillary crutches. Equipment at home: crutches Code Status: Full Code Activity Orders: up ad genaro Precautions/Special Considerations: L LE TDWB (20% body weight) and brace locked at 0 deg extensionat all times, FALL RISK Subjective: I've been on crutches so many times, I'm really not worried. Objective: Seen today for brief OT evaluation. Pt previously completed stairs with PT. Mother and stepmother present. Cognitive Status/Behavior: alert, oriented to person, place, and time; motivated to work with therapy; looking forward to d/c; cooperative; pleasant; following simple directions well Communication: WFL; appropriate; conversational speech Range of motion, strength, coordination: Hand dominance: right Bilateral UEs are within functional limitations RLE WFL strength and ROM Impaired LLE ROM and strength. Pt with [place] knee brace donned and locked at 0. Pt is able to independently lift LLE with brace donned; uses UEs to assist at times; ie: during bed mobility Sensation: pt reporting some numbness and tingling in LLE Activities of Daily Living: Self-feeding: Set up assistance Hygiene grooming: independent Upper and lower body dressing and bathing: ?? Pt reporting that she requires CG A at times during dressing this morning. ?? Family stating that they feel comfortable assisting as necessary ?? Educated pt and family on dressing LLE first ?? Pt donns/doffs B shoes independently sitting at EOB Toileting: Toilet Transfer: not observed; pt/family reporting that pt has been transferring independently on and off the toilet this morning Functional Mobility: Supine to sit: indep Sit to stand: indep with axillary crutches Ambulation: ~150ft with axillary crutches with close supervision. Pt maintaining NWB-TDWB status; pt requires cues to slow down Stand to sit: indep with axillary crutches Sit to supine: indep Balance: good dynamic sitting balance at EOB; pt requiring use of axillary crutches during functional mobility for safety IADL???s: Assistance available to patient. Endurance: Information taken from last recorded vitals in flowsheet. Last value Range last 8 hrs Heart Rate Heart Rate: 88 Heart Rate: [88] Blood Pressure BP: 112/61 mmHg BP: (112)/(61) SpO2 SpO2: 98 % SpO2: [98 %] Stable on RA Pain: No c/o Informed Consent: The pt/family agrees to and understands the OT treatment plan and goals. Education: Pt/family educated on Role of occupational therapy/rehabilitation, Transfers, Assistive device/technique, Adaptive equipment training, ADL, Exercise, Positioning, Safety, Precautions/Protocol, Functional Mobility, Activity pacing/Energy conservation, Home Management, Balance, Recommendations, Family training and Discharge planning and verbalizes and demonstrates understanding. Patient status, treatment, and mobility recommendations discussed with nursing. Assessment: Pt has been seen for OT evaluation. Pt demonstrating ability to perform functional mobility and ADLtasks with CGA-modified independence. Pt's family stating that they feel comfortable in assisting pt as needed; discharge/ADL education completed. Pt/family educated on use of shower chair in tub shower at home when cleared by MD to shower. Pt has met all inpatient OT goals/expectations. Encourage pt to slow down and scan environment when discharged home for safety. Anticipate pt to d/c home in support of family when medically ready. Do not anticipate any further OT needs. Recommendations: Equipment needs at discharge: shower chair Discharge Recommendations: Anticipate pt to d/c home in support of family when medically ready. Plan: Pt to be monitored by OT for any change in status, further questions/concerns. Eval Date: 09/09/2014 Total time spent with patient: 15 minutes for brief initial evaluation Total timed interventions: 0 minutes Thank you for this occupational therapy consult. Pager: [phone] Rola Babcock OT 09/09/2014 Occupational Therapy Rehabilitation Department * Plan of Care - Pam Narayanan RN - 09/09/2014 4:37 AM EDT Problem: Peds General Plan of Care Goal: Plan of Care Review Outcome: Ongoing (Interventions Implemented as Appropriate) 09/08/14 2020 09/09/14 0431 Plan of Care Review Plan of Care Outcome Status ongoing (interventions implemented as appropriate) -- Progress -- progress toward functional goals as expected Coping/Psychosocial Response Interventions Plan of Care Reviewed with patient;mother;father -- OUTCOME EVALUATION NOTE: OUTCOME SUMMARY: VSS, afebrile. LLE with neurovascular checks WNL. Immobilizer in place. Refusing cryocuff. Able to ambulate with crutches without difficulty. Pain well controlled with Oxycodone prn and scheduled tylenol. Good po and UOP. Mon and stepmom at bedside and active in pt care. PLAN MOVING FORWARD: Frequent pain assessments. IV abx as ordered. Will see PT in am. Probable D/C home. INDIVIDUALIZED FALL PREVENTION: Assistance: Crutches with stand-by assist Supervision: Mom and stepmom at bedside, RN Surveillance: The registered nurse will be responsible for purposeful rounding on each of their patients. Purposeful rounding will address the patient's pain/comfort, safety, and presence of family/observer at bedside. Purposeful rounding performed hourly between 0800 and 1800, and every other hourbetween 2000 and 0800. CPG GOAL OUTCOME EVALUATION: Goal: Peds Individualization and Mutuality Outcome: Ongoing (Interventions Implemented as Appropriate) 09/08/142019 Individualization Individualize the Plan of Care: ongoing (interventions implemented as appropriate) Goal: Infection Control Outcome: Ongoing (Interventions Implemented as Appropriate) 09/08/142019 Safety Interventions Isolation Precautions standard precautions maintained Infection Prevention environmental surveillance;promote handwashing;rest/sleep promoted;nutrition promoted;hydration promoted Coping/Psychosocial Response Interventions Counseling goal setting facilitated;problem solving facilitated;understanding of situation facilitated;reassurance provided;emotional support provided;calming techniques promoted Goal: Discharge Needs Assessment Outcome: Ongoing (Interventions Implemented as Appropriate) Problem: Pain, Acute (Pediatric) Goal: Identify Signs and Symptoms and Related Risk Factors Signs and symptoms and related risk factors are identified upon initiation of Human Response Clinical Practice Guideline (CPG) Outcome: Ongoing (Interventions Implemented as Appropriate) Goal: Acceptable Pain Control/Comfort Level Patient will demonstrate the desired outcomes. Outcome: Ongoing (Interventions Implemented as Appropriate) 09/08/142019 Pain, Acute (Pediatric) Acceptable Pain Control/Comfort Level making progress toward outcome Problem: Fall/Trauma/Injury Risk (Pediatric) Goal: Identify Signs and Symptoms and Related Risk Factors Signs and symptoms and related risk factors are identified upon initiation of Human Response Clinical Practice Guideline (CPG) Outcome: Ongoing (Interventions Implemented as Appropriate) Goal: Absence of Trauma/Injury/Falls Patient will demonstrate the desired outcomes. Outcome: Ongoing (Interventions Implemented as Appropriate) * Plan of Care - Kika Salinas RN - 09/08/2014 8:35 PM EDT Problem: Peds General Plan of Care Goal: Plan of Care Review 09/08/142019 Plan of Care Review Plan of Care Outcome Status ongoing (interventions implemented as appropriate) Progress improving Coping/Psychosocial Response Interventions Plan of Care Reviewed with patient;mother;father OUTCOME EVALUATION NOTE: OUTCOME SUMMARY: 14 yo Samreen admitted to [facility] 539 S/P Osteotomy Left knee. Afebrile. VSS. LLE CMS intact, brisk cap Refill; strong pedal pulses, wiggles all toes well. Left Leg dressing appeared clean when Dr Parker repositioned brace for improved fit; Crycuff removed at that time. PT at bedside reviewing plan with Dr Parker as Samreen and family requesting to possibly go home; PT and MD reviewed discharge criteriafor mobility. Samreen ambulating very well with crutches to and from bathroom with standby assist from family. Samreen was not able to walk stairs due to feeling more tired than anticipated. Pain well controlled with PO Oxycodone and Tylenol. IV antibiotics received.Tolerating diet. Voiding PLAN MOVING FORWARD Pain management. IV antibiotics. To meet with PT tomorrow morning to clear stairs. Anticipate discharge tomorrow. INDIVIDUALIZED FALL PREVENTION: Assistance: At risk; stand by assist when out of bed Supervision: Continuous; Angelica. Mom at bedside participating in care Surveillance: The registered nurse will be responsible for purposeful rounding on each of their patients. Purposeful rounding will address the patient's pain/comfort, safety, and presence of family/observer at bedside. Purposeful rounding performed hourly between 0800 and 1800, and every other hourbetween 2000 and 0800. CPG GOAL OUTCOME EVALUATION: Goal: Peds Individualization and Mutuality 09/08/142019 Individualization Individualize the Plan of Care: ongoing (interventions implemented as appropriate) Goal: Infection Control 09/08/142019 Safety Interventions Isolation Precautions standard precautions maintained Infection Prevention environmental surveillance;promote handwashing;rest/sleep promoted;nutrition promoted;hydration promoted Coping/Psychosocial Response Interventions Counseling goal setting facilitated;problem solving facilitated;understanding of situation facilitated;reassurance provided;emotional support provided;calming techniques promoted Goal: Discharge Needs Assessment 09/08/142019 Discharge Needs Assessment Concerns to be Addressed no discharge needs identified Readmission Within the Last 30 Days no previous admission in last 30 days Living Environment Transportation Available car Problem: Pain, Acute (Pediatric) Goal: Acceptable Pain Control/Comfort Level Patient will demonstrate the desired outcomes. 09/08/142019 Pain, Acute (Pediatric) Acceptable Pain Control/Comfort Level making progress toward outcome * Initial Assessments - WarnerKatey O, PT - 09/08/2014 2:51 PM EDT Physical Therapy Evaluation Patient profile: Pt. is a 14 y.o. female admitted on 09/08/2014 by Jennifer Eckert MD for knee arthroscopy and Tibia shira osteotomy. PT was paged by nursing to provide crutches as pt was asking to get OOB. PMH: Past Medical History Diagnosis Date ??? Fracture of distal femur Per Mom, fx of lower femur and upper (?) tibia, long leg case Past Surgical History Procedure Laterality Date ??? Knee scope, diagnostic 08/31/2010 ARTHROSCOPY KNEE, DIAGNOSTIC performed by BRENDAN NAVARRO at [facility] OR ??? Apply long leg cast 08/31/2010 CAST APPLICATION, LONG LEG (THIGH TO TOES) performed by BRENDAN NAVARRO at [facility] ??? Knee scope, shave articular cart 08/31/2010 ARTHROSCOPY KNEE CHONDROPLASTY performed by BRENDAN NAVARRO at [facility] ??? Knee scope, drill oste diss+int fix 08/31/2010 ARTHROSCOPY KNEE, DRILLING & FIXATION OF OCD performed by BRENDAN NAVARRO at [facility] ??? Fix unstable patella, exten realign 12/16/2010 PATELLAR REALIGNMENT performed by BRENDAN NAVARRO at [facility] ??? Knee scope, remv loose body 12/16/2010 ARTHROSCOPY KNEE REMOVE LOOSE BODY performed by JENNIFER ZHANG at [facility] OR ??? Knee scope, abrasn arthroplasty 12/16/2010 ARTHROSCOPY KNEE, MULTIPLE DRILLING, MICROFRACTURE performed by JENNIFER ZHANG at [facility] OR ??? Apply long leg cast 12/16/2010 CAST APPLICATION, LONG LEG (THIGH TO TOES) performed by JENNIFER ZHANG at [facility] ??? Knee scope, part synovect 04/05/2011 ARTHROSCOPY KNEE SYNOVECTOMY LIMITED performed by JENNIFER ZHANG at [facility] ??? Drain/inject large joint/bursa 04/05/2011 ARTHROCENTESIS, ASPIRATION OR INJECTION, MAJOR JOINT OR BURSA, KNEE performed by JENNIFER ZHANG at [facility] OR ??? Knee scope, remv loose body 02/13/2012 ARTHROSCOPY KNEE REMOVE LOOSE BODY performed by JENNIFER ZHANG at [facility] OR ??? Arthrotomy/explore/treat knee joint 02/13/2012 ARTHROTOMY, KNEE WITH EXPLORATION performed by JENNIFER ZHANG at [facility] ??? Revision of unstable patella 02/13/2012 REPAIR DISLOCATING PATELLA performed by JENNIFER ZHANG at [facility] ??? Knee scope, abrasn arthroplasty 02/13/2012 ARTHROSCOPY KNEE, MULTIPLE DRILLING, MICROFRACTURE performed by JENNIFER ZHANG at [facility] ??? Osteotomy tibia Right 02/10/2014 OSTEOTOMY, TIBIA performed by Jennifer Zhang MD at [facility] ??? Knee scope, remv loose body Right 02/10/2014 ARTHROSCOPY KNEE REMOVE LOOSE BODY performed by Jennifer Zhang MD at [facility] ??? Revision of unstable patella Right 02/10/2014 REPAIR DISLOCATING PATELLA performed by Jennifer Zhang MD at [facility] Social History: Patient lives with their family in 1 level home. She splits her time at mother and father's home. Pt accompanied by her mother, father, stepmother (she also calls mom) and grandmother. She is the eldest of many siblings. Stairs: 3 -5 without a rail to enter. Baseline Mobility: Has lots of experience using axillary crutches. Equipment at home: crutches Precautions/Special Considerations: L LE TDWB (20% body weight) and brace locked at 0 deg extensionat all times, FALL RISK Subjective: ???Can I go home tonight??? per pt. Oh, I feel different standing then I did lying in bed. I'm dizzy, per pt upon walking out of her room. Objective: Pt seen for evaluation today on 5E/Pediatrics. Pain: a little bit while sitting in bed. a little more when standing 5-6/10 per pt. Vital Signs: Sp02: 98% on RA HR: 90s Mental Status: alert, oriented to person, place, and time Musculoskeletal: ROM: Impaired. [place] knee brace donned and locked at 0. Strength: Impaired. Unable to lift left leg with brace on at this time. Uses 2 hands to help move Left leg in brace during bed mobility. Sensation: Impaired. Decreased sensation numb from thigh to a little below left knee. Lower leg, foot on L intact to LT. Dr. Hema Parker MD came in and adjusted brace prior to pt getting out of bed with PT. Bed Mobility: Brace donned appropriately and locked prior to getting out of bed. Supine to Sit: indep Sit to Supine: indep Transfers: Sit to Stand: close supervision/CGA with axillary crutches - mild unsteadiness. Stand to Sit: close supervision/CGA with axillary crutches Gait: Distance: 50ft Device used: axillary crutches Level of assist: contact guard Gait pattern: Able to maintain NWB to TDWB on L LE with leg in [place] brace locked at 0 deg extension. Mildly unsteady requiring CGA at times. Reported feeling dizzy and recommended pt return to bed. Enc pt to eat. Pt reports being motivated to do the stairs but pt not safe to do so at this time. Pt. to utilize axillary crutches and contact guard for ambulation with nursing. Balance: Sitting: Good Standing: Fair, needs axillary crutches to maintain balance. ADLs: Dressing mothers assisting pt appropriately. Able to don t-shirt indep and assistance for underwearand shorts. Enc putting cryocuff back on. Mother getting it ready. Brace appeared to fit well and did not slide. Informed Consent: The family and patient understands and agrees to the PT treatment plan and goals. Education: family and patient have been educated on Bed mobility, Transfers, Assistive device/technique, Positioning, Safety , Precautions/protocol and Gait and verbalize and demonstrate understanding. Patient status, treatment, and mobility recommendations discussed with nursing. Assessment: Pt tolerated today???s evaluation with good pain control hurt a little more with walking but limited by dizziness. Pt very motivated to go home but was limited due to dizziness and had not eaten. No safe at this time. Pt safe to ambulate with parent/nursing contact guard assist to/from bathroom. Will need to do demo safe stair climbing. The pt would benefit from skilled therapy services to maximize functional independence while in the hospital and to address limitations as noted above. Goals: To be achieved by discharge, 1. Pt. to demonstrate knowledge of precautions and weight bearing limitations during functional activities. MET 2. Pt. to ambulate 100 feet; with a axillary crutches, and supervision. 3. Pt. to ambulate up/down 5 step/stairs with contact guard, using axillary crutches. 4. Family or caregiver to demonstrate understanding of therapeutic interventions to support the care of the patient. MET Plan: Pt to be seen 1-2 more times per week for therapy including Stairs, Precautions/protocol, Gait , Activity pacing/Energy conservation and Discharge planning. Patient agrees with plan as stated above. Equipment needs: Patient has all necessary equipment Discharge Recommendations: do not anticipate any PT needs No other consults recommended at this time Total time spent with patient: 24 minutes evaluation Total timed interventions: 0 minutes Katey Barbosa PT 09/08/2014 Pager: [phone] Physical Therapy Rehabilitation Department * Op Note - Sujatha Rand MD - 09/08/2014 10:34 AM EDT ORTHOPAEDIC SURGERY OPERATIVE NOTE Surgeon/Assistants: Surgeon(s) and Role: * Jennifer Zhang MD - Primary * Sujatha Rand MD Date of Surgery: 09/08/14 PREOPERATIVE DIAGNOSIS: Left knee recurrent patellar dislocation POSTOPERATIVE DIAGNOSIS: Left knee recurrent patellar dislocation PROCEDURES PERFORMED: Left knee diagnostic arthroscopy, left knee Shira osteotomy with lateral release ANESTHESIA: General ESTIMATED BLOOD LOSS: 100cc SUMMARY OF IMPLANTS USED: 42mm fully threaded 4.5mm screw 52mm fully threaded 4.5mm screw FINDINGS: Suprapatellar pouch: GENERALIZED SYNOVITIS Medial and lateral gutters: CLEAR Patellofemoral Joint: Patella: GRADE III Trochlea: GRADE III Lateral Compartment: Meniscus: INTACT Femoral condyle: GRADE I BELOW THE SULCUS TERMINALIS Tibial plateau: GRADE I WITH SOFTENING Medial Compartment: Meniscus: INTACT Femoral condyle: GRADE I Tibial plateau: GRADE I Interconylar notch: INTACT ACL/PCL INDICATIONS: Samreen Martinez is a 14 y.o. woman who is followed in clinic for recurrent bilateral patellar dislocations. She underwent a right knee Shira osteotomy in January with good results. She continued to have difficulty with her left knee with a positive J sign and an MRI showing per sistently subluxed patella. After discussion of the treatment options and the risks and benefits ofeach option, she and her parents selected to proceed with operative intervention. PROCEDURE DESCRIPTION: The patient was correctly identified in the pre-op holding area, the operative site was marked, andthe consent was reviewed. The pre-operative checklist was completed. The patient was wheeled to theoperating room and the patient was transferred to the operating table. General anesthetia was administered. A nerve block was placed. Preoperative antibiotics were given. A tourniquet was placed highon the left thigh but was not used during the procedure. A time-out was performed to confirm patient identity, planned surgery, and site according to the [facility] Protocol. The left leg was prepped and draped in normal sterile fashion. The knee was insufflated with normal saline with epinephrine. A standard lateral portal was established and arthroscopic camera was advanced in the joint. A medial portal was created under direct visualization, first localizing with a spinal needle to assure proper location. A systematic arthroscopic examination of the knee was performed with the findings noted above. The decision was made to proceed with the Shira osteotomy. Instruments were removed, and the fluid was evacuated from the knee. A 9cm midline incision was made from the inferior patella distally. The soft tissues were sharply dissected to the level of the extensor mechanism and periosteum. The medial and lateral aspects of the patellar tendon were exposed and identified. A plane was developed posterior to the patellar tendon paratenon and a freer was placed behind the patellar tendon. The tibialis anterior was incised with bovie electrocautery and elevated off the lateral aspect of the tibia, leaving a cuff of tissue onthe tibia for later repair. The entire lateral surface of the tibia was exposed. The osteotomy cuts were marked out on the medial and lateral aspects of the tibia. The osteotomy was completed from medial to posterolateral with an oscillating saw. The osteotomy cut was made thicker proximally and thinner distally, ending approximately 7cm from the joint line. An osteotome was used to connect the posterolateral cut with the medial cut proximally. The osteotomized tubercle was then moved approximately 1cm anteriorly and 1cm medially and held in placed with a K-wire. The tubercle was secured with 2 bicortical 4.5mm screws, one proximally and one distally. Each of screw was placed in a similar fashion as described below.. The tubercle was drilled with a 4.5mm drill. A 3.2mm drill was used to drill through the far cortex. Length was measured with a depth imani and an appropriately sized screw was placed. There was no splintering or fracturing of the osteotomy. The K-wire was removed. Screw length and bicortical purchase was confirmed with intra-operative fluoroscopy. Attention was then turned to the lateral release. A plane was developed between the synovium and the capsule lateral to the patella. The lateral capsular structures were cut with [place] scissors. The Shira osteotomy incision was thoroughly irrigated with normal saline. The tibialis anteriorwas reattached to the residual cuff of tissue with 0- Vicryl. The soft tissue was closed with 0-Vicryl. The skin was reapproximated with 3-0 Vicryl. The incision and the portal sites were closed with 4-0 Monocryl. The wounds were covered with a silver Mepilex and an Casey wrap. A cryo- cuff and a miryam brace locked in extension were placed. All sponge, needle, and instruments counts were correct atthe end of the procedure. Dr. Zhang was present for the entirety of the procedure. The patient was extubated, transferred back to the stretcher in a hospital bed and she was taken tothe recovery room without incident. * Brief Op Note - Jennifer Zhang MD - 09/08/2014 9:58 AM EDT Brief Operative Note Patient Name: Samreen Martinez : [id number] MR#: [id number] Case Date: 09/08/2014 Surgeon: Surgeon(s) and Role: * Jennifer Zhang MD - Primary * Sujatha Rand MD Preoperative diagnosis: left knee recurrent patellar dislocation Postoperative diagnosis: left knee recurrent patellar dislocation Procedure(s): OSTEOTOMY, TIBIA SHIRA TYPE ARTHROSCOPY KNEE, DIAGNOSTIC Anesthesia: General, Regional Operative Findings: Suprapatellar pouch: GENERALIZED SYNOVITIS Medial and lateral gutters: CLEAR Patellofemoral Joint: Patella: GRADE III Trochlea: GRADE III Lateral Compartment: Meniscus: INTACT Femoral condyle: GRADE I BELOW THE SULCUS TERMINALIS Tibial plateau: GRADE I WITH SOFTENING Medial Compartment: Meniscus: INTACT Femoral condyle: GRADE I Tibial plateau: GRADE I Interconylar notch: INTACT ACL/PCL Complications: NONE Fluids: 1000 CC CRYSTALLOID Estimated Blood Loss: 100 mL Drains: NONE PLAN: TDWB IN [place] LOCKED IN EXTENSION ALL THE TIME. Disposition: awakened from anesthesia, extubated and taken to the recovery room in a stable condition, having suffered no apparent untoward event. Condition: doing well without problems Attestation: Case Date: 09/08/2014 I was present and I participated during the entire procedure (does not need to include opening and closing). (Please see the Surgical Encounter Summary for any Implant and Specimen details pertinent to this patient.) documented in this encounter Plan of Treatment Pending Results Name Type Priority Associated Diagnoses Date /Time XR Fluoro OR c-arm storage only Imaging Routine 09/08/2014 9:37 AM EDT Scheduled Orders Name Type Priority Associated Diagnoses Orde r Schedule XR Fluoro OR c-arm storage only Imaging Routine Once PRN (for Ra diant use) for 1 Occurrences starting 09/08/2014 until 09/08/2014 documented as of this encounter Procedures Procedure Name Priority Date/Time Associated Diagnosis Comments ARTHROSCOPY KNEE, DIAGNOSTIC (WRVU 5.19) 09/08/2014 7:42 AM EDT left knee OSTEOTOMY, TIBIA (WRVU 10.86) 09/08/2014 7:42 AM EDT left knee documented in this encounter Visit Diagnoses Diagnosis s/p left knee Shira osteotomy and lateral release 09/08/14 (Vicente)- Primary Recurrent dislocation of lower leg joint Effusion of knee joint, left Effusion of lower leg joint documented in this encounter Administered Medications Inactive Administered Medications - up to 3 most recent administrations Medication Order MAR Action Action Date Dose Rate Site acetaminophen (TYLENOL) tablet 1,000 mg 1,000 mg, Oral, ONCE, 1 dose, On Mon09/08/14 at 0715, Maximum dose of acetaminophen is 4000 mg from all sources in 24 hours., Routine Given 09/08/2014 7:10 AM EDT 1,000 mg acetaminophen (TYLENOL) tablet 650 mg 650 mg (6.7 mg/kg/dose), Oral, EVERY 6 HOURS SCHEDULED, First dose on Mon09/08/14 at 1330, Until Discontinued, Do NOT exceed 75 mg/kg for 24 hours, Routine Given 09/09/2014 8:05 AM EDT 650 mg Given 09/09/2014 2:19 AM EDT 650 mg Given 09/08/2014 8:24 PM EDT 650 mg ceFAZolin (ANCEF) 2g in dextrose 5% 50 mL 2 g (0.0206 g/kg), Intravenous, EVERY 8 HOURS, 3 doses, First dose (after last modification) on Mon09/08/14 at 1600, Last dose on Mon09/09/14 at 0930, Administer over 30 Minutes, Please begin as soon as possible., Indication for (Active or Suspected): Prophylaxis Given 09/09/2014 9:49 AM EDT 2 g 100 mL/hr Given 09/09/2014 1:30 AM EDT 2 g 100 mL/hr Given 09/08/2014 5:41 PM EDT 2 g 100 mL/hr dextrose 5% and sodium chloride 0.45% with potassium chloride 20 mEq infusion 75 mL/hr, Intravenous, CONTINUOUS, Starting on Mon09/08/14 at 1100, Until Mon09/08/14 at 2024 Restarted 09/08/2014 5:40 PM EDT 75 mL/hr 75 mL/hr New Bag 09/08/2014 11:00 AM EDT 75 mL/hr 75 mL/hr docusate sodium (COLACE) capsule 100 mg 100 mg (1.03 mg/kg/dose), Oral, DAILY, First dose on Mon09/08/14 at 1400, Until Discontinued, Give an oral suspension if unable to take capsule., Routine Given 09/09/2014 8:05 AM EDT 100 mg Given 09/08/2014 8:25 PM EDT 100 mg fentaNYL (PF) 50 mcg/mL 2mL syringe 25 mcg (0.258 mcg/kg), Intravenous, EVERY 5 MIN PRN, Pain, for breakthrough pain, Starting on Mon09/08/14 at 1036, Until Mon09/08/14 at 1306, Hold for respiratory rate less than 10 per minute. Maximum dose: 250 mcg over one hour., PACU Recovery Given 09/08/2014 10:50 AM EDT 25 mcg Given 09/08/2014 10:40 AM EDT 25 mcg lidocaine-prilocaine (EMLA) 2.5-2.5 % cream Starting on Mon09/08/14 at 0711, 1 dose, Until Mon09/08/14 at 0720, KASIE LENNON: cabinet override Given 09/08/2014 7:20 AM EDT oxyCODONE (ROXICODONE) immediate release tablet 5-10 mg 5-10 mg (0.0515-0.1031 mg/kg/dose), Oral, EVERY 4 HOURS PRN, Starting on Mon09/08/14 at 1106, Until Mon09/09/14 at 1459, Pain, Routine Given 09/09/2014 8:05 AM EDT 5 m g Given 09/09/2014 2:19 AM EDT 10 mg Given 09/08/2014 7:35 PM EDT 10 mg documented in this encounter Active and Recently Administered Medications Times are shown in EDT. Scheduled Medication Order 09/07/2014 09/08/2014 09/09/2014 acetaminophen (TYLENOL) tablet 1,000 mg (COMPLETED) 1,000 mg, Oral, ONCE, 1 dose, On Mon09/08/14 at 0715, Maximum dose of acetaminophen is 4000 mg from all sources in 24 hours., Routine 0710 (Given - Provider: Kasie Lennon, YOLY) acetaminophen (TYLENOL) tablet 650 mg 650 mg (6.7 mg/kg/dose), Oral, EVERY 6 HOURS SCHEDULED, First dose on Mon09/08/14 at 1330, Until Discontinued, Do NOT exceed 75 mg/kg for 24 hours, Routine 1417 (Given - Provider: Kika Salinas RN)2024 (Given - Provider: Pam Narayanan, YOLY) 0219 (Given - Provider: Pam Narayanan, YOLY)0805 (Given - Provider: Maya Andrews RN) ceFAZolin (ANCEF) 2g in dextrose 5% 50 mL (COMPLETED) 2 g, Intravenous, EVERY 3 HOURS, 1 dose, First dose on Mon09/08/14 at 0600, Administer over 30 Minutes, Redose after 3 hours., Intra-Operative (Intra-Procedure), Indication for (Active or Suspected): Prophylaxis 0800 (Given - Provider: Annalise Garcia CRNA) ceFAZolin (ANCEF) 2g in dextrose 5% 50 mL (COMPLETED) 2 g (0.0206 g/kg), Intravenous, EVERY 8 HOURS, 3 doses, First dose (after last modification) on Mon09/08/14 at 1600, Last dose on Mon09/09/14 at 0930, Administer over 30 Minutes, Please begin as soon as possible., Indication for (Active or Suspected): Prophylaxis 1741 (Given - Provider: Kika Salinas RN - Comment: Not available) 0130 (Given - Provider: Pam Narayanan, RN)0949 (Given - Provider: Maya Andrews, RN) docusate sodium (COLACE) capsule 100 mg(Linked Group 1) 100 mg (1.03 mg/kg/dose), Oral, DAILY, First dose on Mon09/08/14 at 1400, Until Discontinued, Give an oral suspension if unable to take capsule., Routine 2024 (Given - Provider: Pam Narayanan, YOLY) 08 (Given - Provider: Maya Andrews, RN) Continuous Medication Order 09/07/2014 09/08/2014 09/09/2014 dextrose 5% and sodium chloride 0.45% with potassium chloride 20 mEq infusion (CANCELED) 75 mL/hr, Intravenous, CONTINUOUS, Starting on Mon09/08/14 at 1100, Until Mon09/08/14 at 2023 1100 (New Bag - Provider: Do mitchel Alexis RN)1345 (Stopped - Provider: Kika Salinas, YOLY)1740 (Restarted - Provider: Kika Salinas, YOLY) PRN Medication Order 09/07/2014 09/08/2014 09/09/2014 bacitracin injection (CANCELED) ONCE PRN, Starting on Mon09/08/14 at 0837, Until Mon09/08/14 at 1306, Intra-Operative (Intra-Procedure), Routine 0837 (Given - Provider: Jennifer Zhang MD - Comment: 50,000 units bacitracin mixed with 1L 0.9% NaCl irrigation solution on sterile field, to be used PRN.) EPINEPHrine (ADRENALIN) injection (CANCELED) ONCE PRN, Starting on Mon09/08/14 at 0815, Until Mon09/08/14 at 1306, Intra-Operative (Intra-Procedure), Routine 0815 (Given - Provider: Jennifer Zhang MD - Comment: 0.25 ml epinephrine 1:1000 mixed with 50ml 0.9% NaCl injectable IV bag fluid. Injected by MD Vicente to surgical site preoperatively.) fentaNYL (PF) 50 mcg/mL 2mL syringe (CANCELED) 25 mcg (0.258 mcg/kg), Intravenous, EVERY 5 MIN PRN, Pain, for breakthrough pain, Starting on Mon09/08/14 at 1036, Until Mon09/08/14 at 1306, Hold for respiratory rate less than 10 per minute. Maximum dose: 250 mcg over one hour., PACU Recovery 1040 (Given - Provider: Yari Alexis RN)1050 (Given - Provider: Yari Alexis RN) oxyCODONE (ROXICODONE) immediate release tablet 5-10 mg 5-10 mg (0.0515-0.1031 mg/kg/dose), Oral, EVERY 4 HOURS PRN, Starting on Mon09/08/14 at 1106, Until Mon09/09/14 at 1459, Pain, Routine 1118 (Given - Provider: Yari Alexis RN)1532 (Given - Provider: Alvarado Herrera RN)1935 (Given - Provider: Kika Salinas, YOLY) 0219 (Given - Provider: Pam Narayanan, YOLY)0805 (Given - Provider: Maya Andrews, YOLY) No Frequency Medication Order 09/07/2014 09/08/2014 09/09/2014 lidocaine-prilocaine (EMLA) 2.5-2.5 % cream (COMPLETED) Starting on Mon09/08/14 at 0711, 1 dose, Until Mon09/08/14 at 0720, KASIE LENNON: cabinet override 0720 (Given - Provider: Kasie Lennon, YOLY - Comment: left AC) Linked Groups Order Group 1: docusate sodium (COLACE) oral liquid 100 mg (CANCELED) 100 mg (1.03 mg/kg/dose), Oral, DAILY, First dose on Mon09/08/14 at 1400, Until Discontinued, Give an oral suspension if unable to take capsule., Routine Or docusate sodium (COLACE) capsule 100 mgJump to med 100 mg (1.03 mg/kg/dose), Oral, DAILY, First dose on Mon09/08/14 at 1400, Until Discontinued, Give an oral suspension if unable to take capsule., Routine documented in this encounter Care Teams Diesel Engine Tester Relationship Specialty Start Date End Date Virginia Cramer MD [address] [place] [address] PCP - General 04/27/10 07/16/15 documented as of this encounter
--- OUTSIDE RECORDS SUMMARY | 2023-12-15 02:23 | XMS_ITS | Encounter Summary ---
[facility] [place] [address] Care Team Providers Care Water Plant Maintenance Mechanic Name Role Phone Michelet Cramer MD Primary Care Provider Encounter Details Date Type Department Care Team (Late st Contact Info) Description 10/03/2014 [place] [id number] Tabby Pacheco RN Social History Tobacco Use Types Packs/Day [...] encounter Miscellaneous Notes * Telephone Encounter - Tabby Pacheco RN - 10/03/2014 4:20 PM EDT Case: s/p left knee Benito osteotomy and lateral release 09/08/14 (Zhang) Page from in [place], [place] concerning Samreen and a infected post operative suture. Pt would like to go camping this weekend and swim in a open pond. It is indicated by Dr. Anderson that this pt has had post operative compliance difficulties with wearing of the prescribed knee immobolizer and has been swimming several times since her surgical procedure. Dr. Anderson will prescribe Cephalexin for Samreen and fax over all notes pertaining to her visit. documented in this encounter Plan of Treatment Not on file documented as of this encounter Visit Diagnoses Not on filedocumented in this encounter Care Teams Water Plant Maintenance Mechanic Relationship Specialty Start Date End Date Michelet Cramer MD [address] [place] [address] PCP - General 04/27/10 07/16/15 documented as of this encounter
--- OUTSIDE RECORDS SUMMARY | 2023-12-15 02:23 | XMS_ITS | Encounter Summary ---
Author Organization [facility] Address [facility] [place] [address] Care Team Providers Care Strategic Marketing Specialist Name Role Phone Michelet Cramer MD Primary Care Provider [phone] Encounter Details Date Type Department Care Team (Latest Contact Info) Description 05/13/2014 2:07 PM EST - 05/13/2014 11:59 PM EST Hospital Encounter XRay at [address] [place] [address] Recurrent dislocation of right patella - s/p Benito osteotomy, medial imbrication, lateral release (02/10/14) Social History Tobacco Use Types Packs/Day Years [...] 20-40-40-20 mcg/0.5 mL Suspension Once 12/18/2012 10/21/2015 documented as of this encounter Plan of Treatment Not on file documented as of this encounter Procedures Procedure Name Priority Date/Time Associated Diagnosis Comments XR KNEE DIAGNOSTIC 1 OR 2 VIEW Routine 05/13/2014 2:15 PM EST Recurrent dislocation of right patella - s/p Bentio osteotomy, medial imbrication, lateral release (02/10/14) documented in this encounter Results * XR knee diagnostic 1 or 2 view (05/13/2014 2:15 PM EST) Anatomical Region Laterality Modality Knee N/A Radiographic Savana ging 05/13/2014 2:15 PM EST Impressions 05/13/2014 4:22 PM EST IMPRESSION: 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 Narrative 05/13/2014 4:22 PM EST EXAMINATION: KNEE 1 OR 2 VIEWS/RIGHT CLINICAL HISTORY: right knee Benito osteotomy. TECHNIQUE: ??AP image of both knees and lateral view of the right knee COMPARISON: March 2014 FINDINGS: Healing tibial tubercle osteotomy fixated by 2 screws. The osteotomy line is no longer visible representing osseous bridging and healing. Unchanged patellar alignment and no large effusion. Procedure Note Lorene Gan MD - 05/13/2014 EXAMINATION: KNEE 1 OR 2 VIEWS/RIGHT CLINICAL HISTORY: right knee Benito osteotomy. TECHNIQUE: AP image of both knees and lateral view of the right knee COMPARISON: March 2014 FINDINGS: Healing tibial tubercle osteotomy fixated by 2 screws. The osteotomy lineis no longer visible representing osseous bridging and healing. Unchangedpatellar alignment and no large effusion. 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 Cosmo Pratt MD IMG DX ORDERABLES documented in this encounter Visit Diagnoses Diagnosis Recurrent dislocation of right patella - s/p Benito osteotomy, medial imbrication, lateral release (02/10/14) Recurrent dislocation of lower leg joint documented in this encounter Care Teams Strategic Marketing Specialist Relationship Specialty Start Date End Date Michelet Cramer MD [address] [place] [address] PCP - General 04/27/10 07/16/15 documented as of this encounter
--- OUTSIDE RECORDS SUMMARY | 2023-12-15 02:23 | XMS_ITS | Encounter Summary ---
Author Organization [facility] [address] Care Team Providers Care Compliance Representative Name Role Phone Michelet Cramer MD Primary Care Provider [phone] Reason for Visit * Reason Comments Other Encounter Details Date Type Department Care Team (Late st Contact Info) Description 02/21/2014 Telephone [place] [phone] Chichi Meredith RN Social History Tobacco Use Types Packs/Day [...] Telephone Encounter - Chichi Meredith RN - 02/21/2014 1:28 PM EST Phone call to speak with Samreen's mother about scheduling follow up sooner than March 06 - explain that Samreen will need to have stitches removed and that the is further out than recommended.Mom will be re-wrapping the robert this afternoon and will plan to call to reschedule. * Telephone Encounter - Chichi Meredith RN - 02/21/2014 10:18 AM EST Phone call to Samreen and her family to discuss rescheduling of appointment. No answer at this time - message left requesting call back. * Telephone Encounter - Chichi Meredith RN - 02/21/2014 10:18 AM EST ----- Message from Simi Dacosta sent at 02/20/2014 10:49 AM EST ----- Regarding: FW: SH8 reschedule appointment Zhang Please see the rescheduling requests below for this patient--I believe that scheduling a post-op appointment for 03/06 for an 02/10 surgery is way beyond what's acceptable. Could you call this patient to discuss and then let us know when to reschedule is appropriate? thanks ----- Message ----- From: Amalia Gordon Sent: 02/20/2014 10:46 AM To: Simi Dacosta Subject: RE: 8 reschedule appointment Zhang Was not able to do the th, able to do the th at 3:10pm in an 7 this okay? ----- Message ----- From: Simi Dacosta Sent: 02/20/2014 9:15 AM To: [facility] Subject: RE: 8 reschedule appointment Zhang Book in frozen 11:10 slot on 02/27 ----- Message ----- From: Daisy Morales Sent: 02/20/2014 8:58 AM To: [facility] Subject: 8 reschedule appointment Zhang When is appointment needed? As soon as possible 8 X-rays? YES Casting appointments? N/A What doctor?JANI When was Surgery date/date of appointment? 02/10/2014 Best number to reach patient? [phone] documented in this encounter Plan of Treatment Not on file documented as of this encounter Visit Diagnoses Not on filedocumented in this encounter Care Teams Compliance Representative Relationship Specialty Start Date End Date Michelet Cramer MD [address] [place] [address] PCP - General 04/27/10 07/16/15 documented as of this encounter
--- OUTSIDE RECORDS SUMMARY | 2023-12-15 02:23 | XMS_ITS | Encounter Summary ---
Author Organization [facility] [place] [address] Care Team Providers Care Contract Paralegal Name Role Phone Michelet Cramer MD Primary Care Provider Reason for Referral * Physical Therapy (Routine) - Closed Specialty Diagnoses / Procedures Referred By Jack t Referred To Contact Diagnoses Recurrent dislocation of right patella Frankie Arvizu PA [address] [place] [address] [address] Referral ID Status Reason Start Date Expiration Date V isits Requested Visits Authorized [id number] Closed Evaluate and Treat 04/10/2014 10/07/2014 10 10 Reason for Visit * Reason Comments Follow Up Surgery right knee shira 02/10/14 Encounter Details Date Type Department Care Team (Late st Contact Info) Description 04/10/2014 2:10 PM EST Office [place] [address] Frankie Arvizu PA [address] [place] [address] Recurrent dislocation of right patella - s/p Shira osteotomy, medial imbrication, lateral release (02/10/14) Discharge [...] Sign Reading Time Taken Comments Blood Pressure 121/68 04/10/2014 1:27 PM EST Pulse 95 04/10/2014 1:27 PM EST Temperature - - Respiratory Rate - - Oxygen Saturation - - Inhaled Oxygen Concentration - - Weight 94.3 kg (208 lb) 04/10/2014 1:27 PM EST Height 157.5 cm (5' 2) 04/10/2014 1:27 PM EST Body Mass Index 38.04 04/10/2014 1:27 PM EST Body Mass Index Percentile 99.71% 04/10/2014 1:2 7 PM EST Growth Chart: [facility] (Girls, 2- 20 Years) documented in this encounter Progress Notes * Frankie Arvizu PA - 04/10/2014 1:27 PM EST PATIENT NAME: Samreen Martinez AGE: 13 y.o. MR#: [id number] DATE OF VISIT: 04/10/2014 Case Date: 02/10/2014 Surgeon: Surgeon(s) and Role: * Benito Zhang MD - Primary * Frankie Arvizu PA * Kevin Rene MD Preoperative diagnosis: recurant patella dislocation rt Postoperative diagnosis: recurant patella dislocation rt Procedure(s): OSTEOTOMY, TIBIA SHIRA ARTHROSCOPY KNEE REMOVE LOOSE BODY REPAIR DISLOCATING PATELLA STAFF: The patient was seen and the plan was formulated in conjunction with Dr. Zhang. CHIEF COMPLAINT: 8 week post-op evaluation of a right knee Shira osteotomy. HISTORY OF PRESENT ILLNESS Ms. Martinez a 13 y.o. year old female comes into clinic today for follow-up of the above. Patient reports that she is doing very well. She is now in her Beaufort brace locked in full extension and fully weight bearing. She has not started physical therapy yet as her some difficulty getting into therapy. She denies any pain, no fever, chills, chest pain, shortness of br eath, nausea or vomiting. The patient is accompanied by her mother throughout the exam. ROS: negative for fever, chills, chest pain, shortness of breath, nausea or vomiting. Physical Exam Blood pressure 121/68, pulse 95, height 157.5 cm (5' 2), weight 94.348 kg (208 lb). Constitutional: oriented to person, place, and time and well-developed, well- nourished, and in no distress. Skin: Skin is warm and dry. Right Knee Exam Comments: Mild effusion. Obvious atrophy of the quadriceps muscles. Well-healed surgical incision. She is non-tender to palpation. Stable to varus/valgus stress. Negative Anterior/posterior drawer Neg Lachmans with a firm endpoint. Able to do a straight leg raise without lag. Normal sensation and motor function distally. RADIOLOGICAL STUDIES: I reviewed images of the right knee taken today, which included, AP & Lateral images, which showed healing osteotomy site over the proximal tibia with 2 screw fixation. ASSESSMENT/PLAN: The patient was seen and the plan was formulated in conjunction with Dr. Zhang. Samreen Martinez is a 13 y.o. female presents to the clinic with 8 week post- op evaluation of a right knee Shira osteotomy. The patient is making good progress postoperatively. The patient wasreferred to physical therapy and as she has not started yet. I have asked the therapist to help herwith her range of motion and start working on a close chain strengthening of her quadriceps, abductors, and a pelvic/core muscles.I have given her a prescription for PTO knee brace and I have asked the physical therapist to help her transition out of her Beaufort brace into the the PTO brace. We discussed avoidance of open chain, high-impact type activities. Discussed with patient indications for prompt return or to call the clinic if they have any questions, otherwise they will follow-up 8 weeks with x-rays prior. 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 Narrative 05/13/2014 4:22 PM EST EXAMINATION: KNEE 1 OR 2 VIEWS/RIGHT CLINICAL HISTORY: right knee Shira osteotomy. TECHNIQUE: ??AP image of both knees and lateral view of the right knee COMPARISON: March 2014 FINDINGS: Healing tibial tubercle osteotomy fixated by 2 screws. The osteotomy line is no longer visible representing osseous bridging and healing. Unchanged patellar alignment and no large effusion. Procedure Note Lorene Gan MD - 05/13/2014 EXAMINATION: KNEE 1 OR 2 VIEWS/RIGHT CLINICAL HISTORY: right knee Shira osteotomy. TECHNIQUE: AP image of both knees [...] Shira osteotomy, medial imbrication, lateral release (02/10/14) Recurrent dislocation of lower leg joint Recurrent dislocation of right patella - s/p Shira osteotomy, medial imbrication, lateral release (02/10/14) Recurrent dislocation of lower leg joint documented in this encounter Care Teams Contract Paralegal Relationship Specialty Start Date End Date Michelet Cramer MD [address] [place] [address] PCP - General 04/27/10 07/16/15 documented as of this encounter
--- OUTSIDE RECORDS SUMMARY | 2023-12-15 02:23 | XMS_ITS | Encounter Summary ---
Author Organization [facility] Address [facility] [place] [address] Care Team Providers Care Icd 9 Coder Name Role Phone Michelet Cramer MD Primary Care Provider [phone] Reason for Visit * Reason Comments Follow Up Surgery Right Knee DOS 02/10 Encounter Details Date Type Department Care Team (Late st Contact Info) Description 07/15/2014 3:00 PM EDT Office Visit [place] [address] Benito Zhang MD [facility] [place] [address] Effusion of knee joint, left Discharge Disposition: Home Social History Tobacco Use [...] Sign Reading Time Taken Comments Blood Pressure 131/68 07/15/2014 3:00 PM EDT Pulse 99 07/15/2014 3:00 PM EDT Temperature - - Respiratory Rate - - Oxygen Saturation - - Inhaled Oxygen Concentration - - Weight 93.4 kg (205 lb 14.4 oz) 015 3:00 PM EDT Height 158.8 cm (5' 2.5) 07/15/2014 3: 00 PM EDT pt states Body Mass Index 37.06 07/15/2014 3:00 PM EDT Body Mass Index Percentile 99.52% 07/15 3:00 PM EDT Growth Chart: [facility] (Girls, 2- 20 Years) documented in this encounter Progress Notes * Benito Zhang MD - 07/17/2014 6:33 AM EDT I saw and evaluated the patient. I was integral in formulating the plan as outlined. BENITO ZHANG MD * Sujatha Rand MD - 07/15/2014 3:46 PM EDT Surgery: Right tibia Benito osteotomy, repair of dislocating patella, knee arthroscopy for removal of loose body Date of surgery: 02/10/14 Interval history: Samreen Martinez is a 14 y.o. woman approximately 5 months s/p the above procedure. Her right knee is doing well with minimal or no pain. She reports that it is markedly improvedcompared to prior to surgery. Her left knee has become more bothersome. It started insidiously approximately 1 month ago. She cannot pinpoint a specific injury. She notes catching and the knee is subsequently painful to weight bear on. The catching and pain appear to be primarily lateral. The knee occasionally swells although she is not sure if it swells when it catches. ROS: Negative except as per history Physical exam Gen: NAD, alert RLE: Well healed incision with no erythema or swelling. Painless ROM. Normal patellar tracking. LLE: Well healed incisions with no erythema or swelling. No tenderness to palpation over the medialor lateral joint lines. No peripatellar tenderness to palpation. Full painless knee ROM. Positive seated J sign. Varus and valgus laxity similar to right side with firm endpoints. Anterior drawer slightly lax, similar to right side, with firm endpoint. Negative Zachary's. Neurovascularly intact distally. Assessment/Plan: Samreen Martinez is a 14 y.o. woman approximately 5 months s/p the above procedure. Her right knee is doing well. It is unclear what is causing her left knee pain. Possibilities include loose body, chondral flap, and meniscal tear. Plan to obtain an MRI of the left knee -- this will be done at [facility]. Dr. Zhang will contact them with the results of the knee MRI and to discuss treatment options. All of their questions were answered and they were in agreement with this plan. documented in this encounter Plan of Treatment Not on file documented as of this encounter Visit Diagnoses Diagnosis Effusion of knee joint, left Effusion of lower leg joint documented in this encounter Care Teams Icd 9 Coder Relationship Specialty Start Date End Date Michelet Cramer MD [address] [place] [address] PCP - General 04/27/10 07/16/15 documented as of this encounter
--- OUTSIDE RECORDS SUMMARY | 2023-12-15 02:23 | XMS_ITS | Encounter Summary ---
Author Organization Formerly [facility] [address] Care Team Providers Care Senior Oracle Database Developer Name Role Phone Virginia Cramer MD Primary Care Provider [phone] Encounter Details Date Type Department Care Team (Latest Contact Info) Description 02/10/2014 11:27 AM EST - 02/11/2014 2:58 PM EST Hospital Encounter [place] [id number] Jennifer Dick MD [facility] [place] [address] Knee pain, right Discharge Disposition: Home Social History Tobacco [...] Sign Reading Time Taken Comments Blood Pressure 112/53 02/11/2014 12:00 PM EST Pulse 76 02/11/2014 12:00 PM EST Temperature 36.5 ??C (97.7 ??F) 02/11/2014 12:[address] Respiratory Rate 20 02/11/2014 12:00 PM EST Oxygen Saturation 98% 02/11/2014 12:00 PM EST Inhaled Oxygen Concentration - - Weight 93.9 kg (207 lb) 02/10/2014 4:45 PM EST Height 157.5 cm (5' 2.01) 02/10/2014 4:45 PM ES T Body Mass Index 37.85 02/10/2014 4:45 PM EST Body Mass Index Percentile 99.72% 02/10/2014 4:4 5 PM EST Growth Chart: [facility] (Girls, 2- 20 Years) documented in this encounter Discharge Instructions * Discharge Instructions* Hema Parker - 02/11/2014 12:31 PM EST Activity level: 1. Touchdown weight bearing. Remember to keep your Right leg elevated as much as possible to decrease swelling and control pain. 2. You must keep your knee in your knee immobilizer at all times, even when you are asleep. Diet: You may return to your usual [...] take the stool softener that was ordered, Colace, to facilitate a bowel movement. Miralax, an ognq-tcp-kfiilag medication can also be taken to help if needed to combat constipation. 2. If you need a renewal on your narcotic pain medication, you need to give the Orthopedic clinic enough time to process your request. This can take up to three days, so plan accordingly. 3. You should take your ibuprofen 400mg every 8 hours until you have your follow up appointment. This is important for controlling your pain and keeping you from developing blood clots. Take this medication with food to keep it from irritating your stomach. 4. You should also take tylenol as directed on the package around the clock for the next 5 days. 5. If you are still in severe pain after taking your tylenol and your ibuprofen, then you can take your oxycodone which is a short acting narcotic. You will be on this medication for a limited periodof time only. Stop taking this medication as soon as your pain is manageable with the ibuprofen alone. Shower/Bath: It will be easiest for you to take baths with your leg in a bag and hanging out over the side of the tub. Do not get your leg wet. Remember to observe your weight bearing status when youget in and out of the bath. A sponge bath may be easier. Wound Care: 1. Keep your splint and dressings on until your follow up appointment. Call your doctor (#[phone]) if you develop: 1. fevers greater than 100.5 2. severe nausea or vomiting 3. increasing pain not controlled by pain medications 4. increasing redness or drainage from incisions 5. Change in sensation FOLLOWUP APPOINTMENTS: 1. You will have followup appointments at [facility] as indicated in Future Appointment and Orders. Youwill have an xray prior to those appointments so please come to Radiology, desk 3T, 1 hour BEFORE your appointment for those x-rays. Future Appointments Date Time Provider Department Center 02/20/2014 7:40 AM Jennifer Dick MD [facility] None documented in this encounter Medications at Time of Discharge Medication Sig Dispensed Refills Start Date End Date human papillomavirus 4-valent, PF, (GARDASIL) 20-40-40-20 mcg/0.5 mL Suspension Once 12/18/20122015 acetaminophen (TYLENOL) 325 mg Tablet Take 2 tablets by mouth every 6 hours as needed for Pain. 30 tablet 1 02/11/2014 03/06/2014 docusate sodium (COLACE) 100 mg Capsule Take 1 capsule by mouth 2 times daily as needed for Constipation. 20 capsule 1 02/11/2014 03/06/2014 ibuprofen (ADVIL;MOTRIN) 400 mg Tablet Take 1 tablet by mouth every 8 hours. Take this medication until your follow up appointment. 40 tablet 0 02/11/2014 03/06/2014 oxyCODONE (ROXICODONE) 5 mg Tablet Take 1 tablet by mouth every 4 hours as needed for Pain (Moderate to severe pain after tylenol and ibuprofen have already been given.). 50 tablet 0 02/11/2014 03/06/2014 polyethylene glycol (MIRALAX) 17 gram Powder in Packet Take 17 g by mouth daily as needed (constipation). 14 each 0 02/11/2014 03/06/2014 documented as of this encounter Progress Notes * Ramandeep Rossi RN - 02/11/2014 4:05 PM EST Prior to discharge I have completed the [...] (AVS) and given to the patient or signs and displays sales representative. 6) If VNA was ordered, I faxed the discharge summary (not the AVS) to the VNA. I have provided written discharge instructions and/or AVS to patient's mom. Participants have stated and/or demonstrated understanding of [...] prescriptions and are able to fill them. (X ) Paper scripts in hand and family has confirmed that the pharmacy is able to fill them. ( ) No prescriptions needed. Additional Nursing Comments: Reviewed d/c instructions including pain management, sx to call for, and care for RLE. Patient discharged to home with mom. RAMANDEEP ROSSI RN * Kayla Alcaraz RN - 02/11/2014 9:48 AM EST Office of Care Management(OCM)/Clinical Health And Safety Technician(CRC) Initial Assessment CRC Service:Pediatrics and PICU CRCs: Marivel Vieira RN,BSN pager [phone] and Odalis Patiño pager [phone] Reviewed chart, nursing admission information, and discussed patient during rounds with the Pediatric team to assess continuing care and discharge needs O: Reviewed chart. Introduced self to parents/ caregiver and reviewed CRC role. Admitted with: Right leg tibial osteotomy and knee arthroscopy Home/community services prior to admission: None in chart. PCP: VIRGINIA CRAMER MD [phone] Insurance: [place] [employer] Family supports: Lives with father and stepmother School/development issues: 8th grade Transportation @ d/c: Parents to provide Social Work consult: As needed Anticipated needs for discharge: Patient has crutches and Miryam knee brace. PT to see patient this am and assess for any further equipment needs. P: CRC to follow with Team and Family for coordination of disposition if any needs arise. Kayla Alcaraz RN, CRC Office of Care Management Covering for: Marivel Vieira Pager: [phone]. * Cisco Rene - 02/11/2014 6:22 AM EST ORTHOPAEDIC SURGERY PROGRESS NOTE Surgery/Issue: Recurrent dislocation of right patella 02/10/2014 Procedure(s) (LRB): OSTEOTOMY, TIBIA (Right) ARTHROSCOPY KNEE REMOVE LOOSE BODY (Right) REPAIR DISLOCATING PATELLA (Right) Interval History: No major issues, pain well controlled, Denies CP/SOB/N/V. Slept well. Ambulated to bathroom. Temp: [36.5 ??C (97.7 ??F)-37 ??C (98.6 ??F)] Heart Rate: [76-120] Resp: [16-22] BP: (106-151)/(41-96) SpO2: [88 %-100 %] I/O last 3 completed shifts: In: 720 [P.O.:120; I.V.:600] Out: 160 [Urine:100; Blood:60] I/O this shift: In: 1073.3 [I.V.:1073.3] Out: 750 [Urine:750] PE: RLE Dressing C/D/I, Brace intact SITLT in DP/SP/T Firing EHL/TA/GS Foot WWP No results found for this basename: WBC, HGB, HCT, PLATELET, NA, K, CL, CO2, BUN, CREATININE, INR, in the last 72 hours XRAYS: XR Knee - Osteotomy with 2 screws in good position. No fracture or dislocation. A/P: POD#1 s/p R knee Alaina osteotomy, medial imbrication, and lateral release. Doing well withgood pain control. ?? Active Issues: Mobility, [pain control, dispo ?? Activity: TDWB RLE with Isanti knee brace locked in extension at all times2 ?? Antibiotics: Cefazolin x 3 doses post-operatively ?? Antiicoagulation: Mechanical, Ibuprofen ?? Drains: None ?? Dressing/Spints: Keep in place until follow-up ?? Sierra: None. Voiding spontaneously ?? Dispo: Home when clears PT and pain controlled ?? Follow up:[address] Dick . CISCO RENE MD Orthopaedic Surgery Resident Pager #[phone] 02/11/2014 * Hema Parker - 02/10/2014 5:14 PM EST Orthopaedic Surgery Post-Op Check Note Surgery: Right leg tibial osteotomy and knee arthroscopy Patient Active Problem List Diagnosis Code ??? Effusion of knee joint, left 719.06 ??? Effusion of knee joint 719.06 ? ? R knee arthroscopy, microfracture & medial patellar realignment procedure 02/12 Vicente 836.59 ??? Knee pain, right 719.46 ??? Recurrent dislocation of right patella - s/p Alaina osteotomy, medial imbrication, lateral release (02/10/14) 718.36 Patient seen: On Pediatric singh S/Events: Denies CP, SOB, vomiting, abd pain. The patient is a bit nauseous but just recently received zofran. Pain well controlled. O: Vitals: Temp: [36.7 ??C (98.1 ??F)-36.8 ??C (98.2 ??F)] Heart Rate: [83-120] Resp: [16-22] BP: (126-151)/(70-96) SpO2: [88 %-100 %] I/O this shift: In: 600 [I.V.:600] Out: 60 [Blood:60] Urinated before leaving same day surgery but the amount is unknown. Exam: General: NAD, awake/alert Resp: Breathing comfortably Abd: S/NT/ND RLE: Dressing c/d/i. In knee immobilizer. Motor intact to EHL, FHL, TA. Sensation intact in foot. Foot is warm and well perfused. A/P: 13 y.o. year old female POD#0 s/p right tibial osteotomy and knee arthroscopy progressing well withstable vitals and the patient has voided post operatively. She is a bit nauseous but I will wait tosee if the zofran she recently received was effective before prescribing additional medications. - Orders reviewed - continue all post-operative care documented in this encounter H&P Notes * Jennifer Dick MD - 02/10/2014 12:03 PM EST The patient's history and physical exam have been reviewed and completed. There has been no interval change from that of the pre-operative history and physical exam done within the last 30 days. * Cisco Rene - 02/09/2014 11:00 AM EST Patient Name: Samreen Martinez Patient Age: 13 y.o. Birthdate: 2000 Admit date: (Not on file) Attending Physician: Jennifer Dick MD See scanned document for pre-procedural H&P completed on 01/13/14. documented in this encounter Miscellaneous Notes * Discharge Summary - Hema Parker Camilo - 02/11/2014 12:59 PM EST Discharge Summary Patient Name: Samreen Martinez Patient Age: 13 y.o. Language: Jamaican Race: White Ethnicity: Not nor Admit date: 02/10/2014 Discharge date and time: 02/11/2014 Attending Physician: Jennifer Dick MD Discharge Physician: Jennifer Dick MD Follow-up Recommendations for Providers: Future Appointments Date Time Provider Department Center 02/20/2014 7:40 AM Jennifer Dick MD [facility] None Inpatient Provider Contact Information: Dr. Dick Trauma: [phone] After hours and weekends, call [facility] Body Wirer, , and have Orthopedic resident paged. Discharge Diagnoses (Hospital Problems) and Secondary Diagnoses (Chronic Problems): Active Hospital Problems Diagnosis ??? Recurrent dislocation of right patella - s/p Alaina osteotomy, medial imbrication, lateralrelease (02/10/14) Resolved Hospital Problems Diagnosis Date Resolved No resolved problems to display. Active Non-Hospital Problems Diagnosis ??? Knee pain, right ? ? R knee arthroscopy, microfracture & medial patellar realignment procedure 02/12 Vicente ??? Effusion of knee joint ??? Effusion of knee joint, left Operations/Major Procedures: 02/10/2014- Tibial Alaina Osteotomy, Knee arthroscopy with loose body removal, Retinacular release (lateral) and imbrication (medial). 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 She has been treated previously with conservative measures and arthroscopic measures for lateral release and medial reefing; however, she failed these and chronically dislocated. Discussion of possible treatment options were had with the patient and her family. They have elected to proceed with operative intervention. Hospital Course: The patient was admitted via Same Day Surgery for the above operation. Patient began rehab on POD#1 w/ touchdown weight bearing of right leg remembering to use crutches for balance and protection. Patient was able to void spontaneously on the day of the operation. She did not have a bowel movement while in house on POD #1 but her abdomen was soft and non-tender and she was passing flatus. The patient's splint and dressings are to remain in place until follow up. Her pain was well controlled and she was tolerating PO intake prior to discharge. On POD #1 she worked with physical therapy and was cleared for discharge to home. Vital Signs at Discharge: Weight: Wt Readings from Last 1 Encounters: 02/10/14 93.895 kg (207 lb) (99.38 %*) * Growth percentiles are based on [facility] 2-20 Years data. Height: Ht Readings from Last 1 Encounters: 02/10/14 157.5 cm (5' 2.01) (37.31 %*) * Growth percentiles are based on [facility] 2-20 Years data. HC: HC Readings from Last 1 Encounters: No data found for HC BMI: Body mass index is 37.85 kg/(m^2). Last value Range last 24 hrs Temperature Temp: 36.5 ??C (97.7 ??F) Temp: [36.5 ??C (97.7 ??F)-37 ??C (98.6 ??F)] Heart Rate Heart Rate: 76 Heart Rate: [73-120] Blood Pressure BP: 112/53 mmHg @qtnujrr88@ Respiratory Rate Resp: 20 Resp: [16-22] SpO2 SpO2: 98 % @iiqrpkji36@ Art BP BP (Arterial Line): -- Functional and Cognitive Status: Alert and oriented x 4. No changes in cognitive status during hospital stay. Ambulating with crutches. Important Studies and Lab Data: No labs were completed. Transfusions: No Studies: Xr Knee Diagnostic 1 Or 2 View 02/10/2014 Examination KNEE 1 OR 2 VIEWS/RIGHT/XPORT Clinical History s/p right knee osteotomy Comparison 11/22/2013. Technique Portable cross-table lateral and AP views of the right knee. Findings There is air and fluid within the knee joint, and prepatellar diffuse soft tissue edema compatible with recent operative status. 2 screws are present in the proximal tibial metaphysis. No acute fracture, dislocation, or subluxation. Discharge Conditions/Prognosis: Stable, awake, and alert. Mobilizing with crutches, pain controlledon oral medications. Discharge to: Home Updated Allergies/ADRs: Allergies Allergen Reactions ??? Sulfa (Sulfonamide Antibiotics) Rash Immunizations Given this Hospitalization: Immunization History Administered Date(s) Administered ??? Influenza PF, Split 02/11/2014 Discharge Medications: Your Medications New Medications Dose Details acetaminophen 325 mg Tab Commonly known as: TYLENOL Take 2 tablets by mouth every 6 hours as needed for Pain. 650 mg Quantity: 30 tablet Refills: 1 docusate sodium 100 mg Cap Commonly known as: COLACE Take 1 capsule by mouth 2 times daily as needed for Constipation. 100 mg Quantity: 20 capsule Refills: 1 ibuprofen 400 mg Tab Commonly known as: ADVIL;MOTRIN Take 1 tablet by mouth every 8 hours. Take this medication until your follow up appointment. 400 mg Quantity: 40 tablet Refills: 0 oxyCODONE 5 mg Tab Commonly known as: ROXICODONE Take 1 tablet by mouth every 4 hours as needed for Pain (Moderate to severe pain after tylenol and ibuprofen have already been given.). 5 mg Quantity: 50 tablet Refills: 0 polyethylene glycol 17 gram Pwpk Commonly known as: MIRALAX Take 17 g by mouth daily as needed (constipation). 17 g Quantity: 14 each Refills: 0 Smoking Status at Discharge: History Smoking status ??? Passive Smoke Exposure - Never Smoker Smokeless tobacco ??? Never Used Comment: Adults smoke outside Instructions for Rehab Providers or PCP: None at this time. Please call with questions. Instructions Given to Patient at Discharge: There are no Patient Instructions on file for this visit. General Instructions Activity level: 1. Touchdown weight bearing. Remember to keep your Right leg elevated as much as possible to decrease swelling and control pain. 2. You must keep your knee in your knee immobilizer at all times, even when you are asleep. Diet: You may return to your usual [...] take the stool softener that was ordered, Colace, to facilitate a bowel movement. Miralax, an jidm-ggt-gtcnwiw medication can also be taken to help if needed to combat constipation. 2. If you need a renewal on your narcotic pain medication, you need to give the Orthopedic clinic enough time to process your request. This can take up to three days, so plan accordingly. 3. You should take your ibuprofen 400mg every 8 hours until you have your follow up appointment. This is important for controlling your pain and keeping you from developing blood clots. Take this medication with food to keep it from irritating your stomach. 4. You should also take tylenol as directed on the package around the clock for the next 5 days. 5. If you are still in severe pain after taking your tylenol and your ibuprofen, then you can take your oxycodone which is a short acting narcotic. You will be on this medication for a limited periodof time only. Stop taking this medication as soon as your pain is manageable with the ibuprofen alone. Shower/Bath: It will be easiest for you to take baths with your leg in a bag and hanging out over the side of the tub. Do not get your leg wet. Remember to observe your weight bearing status when youget in and out of the bath. A sponge bath may be easier. Wound Care: 1. Keep your splint and dressings on until your follow up appointment. Call your doctor (#[phone]) if you develop: 1. fevers greater than 100.5 2. severe nausea or vomiting 3. increasing pain not controlled by pain medications 4. increasing redness or drainage from incisions 5. Change in sensation FOLLOWUP APPOINTMENTS: 1. You will have followup appointments at [facility] as indicated in Future Appointment and Orders. Youwill have an xray prior to those appointments so please come to Radiology, desk 3T, 1 hour BEFORE your appointment for those x-rays. Future Appointments Date Time Provider Department Center 02/20/2014 7:40 AM Jennifer Dick MD [facility] None Future Appointments and Orders Future Appointments Provider Department Dept Phone 02/20/2014 7:40 AM Jennifer Dick MD Orthopaedics [phone] Joint Appt Ortho, Questionnaire [facility] [phone] Future Orders Complete By Expires *XR generic knee [NO CPT CODE Custom] 02/11/2014 (Approximate) 02/11/2015 Process Instructions: Scheduling Instructions: Comments: AP and lateral views Questions: Where will study be performed?: [facility] Laterality: Right Portable exam?: No Reason for exam and clinical history: s/p tibial osteotomy Other pertinent information: Is the patient ?: Unknown Stat read required?: Date of injury if applicable: Requested Time: Should this service/procedure be billed to the research sponsor?: Primary Care Provider: VIRGINIA CRAMER MD [phone] Discharge References/Attachments None * Initial Assessments - Liliana Ridley, PT - 02/11/2014 11:32 AM EST Physical Therapy Evaluation Patient profile: Pt. is a 13 y.o. female admitted on 02/10/2014 by Jennifer Eckert MD for recurrent dislocation of right patella 02/10/2014 Procedure(s) (LRB): OSTEOTOMY, TIBIA (Right) ARTHROSCOPY KNEE REMOVE LOOSE BODY (Right) REPAIR DISLOCATING PATELLA (Right) PMH: Past Medical History Diagnosis Date ??? Fracture of distal femur Per Mom, fx of lower femur and upper (?) tibia, long leg case Past Surgical History Procedure Laterality Date ??? Knee scope, diagnostic 08/31/2010 ARTHROSCOPY KNEE, DIAGNOSTIC performed by BRENDAN NAVARRO at [facility] OR ??? Apply long leg cast 08/31/2010 CAST APPLICATION, LONG LEG (THIGH TO TOES) performed by BRENDAN NAVARRO at [facility] OR ??? Knee scope, shave articular cart 08/31/2010 ARTHROSCOPY KNEE CHONDROPLASTY performed by BRENDAN NAVARRO at [facility] OR ??? Knee scope, drill oste diss+int fix 08/31/2010 ARTHROSCOPY KNEE, DRILLING & FIXATION OF OCD performed by BRENDAN NAVARRO at [facility] OR ??? Fix unstable patella, exten realign 12/16/2010 PATELLAR REALIGNMENT performed by BRENDAN NAVARRO at [facility] OR ??? Knee scope, remv loose body 12/16/2010 ARTHROSCOPY KNEE REMOVE LOOSE BODY performed by JENNIFER DICK at [facility] OR ??? Knee scope, abrasn arthroplasty 12/16/2010 ARTHROSCOPY KNEE, MULTIPLE DRILLING, MICROFRACTURE performed by JENNIFER DICK at [facility] OR ??? Apply long leg cast 12/16/2010 CAST APPLICATION, LONG LEG (THIGH TO TOES) performed by JENNIFER DICK at [facility] OR ??? Knee scope, part synovect 04/05/2011 ARTHROSCOPY KNEE SYNOVECTOMY LIMITED performed by JENNIFER DICK at [facility] OR ??? Drain/inject large joint/bursa 04/05/2011 ARTHROCENTESIS, ASPIRATION OR INJECTION, MAJOR JOINT OR BURSA, KNEE performed by JENNIFER DICK at [facility] OR ??? Knee scope, remv loose body 02/13/2012 ARTHROSCOPY KNEE REMOVE LOOSE BODY performed by JENNIFER DICK at [facility] OR ??? Arthrotomy/explore/treat knee joint 02/13/2012 ARTHROTOMY, KNEE WITH EXPLORATION performed by JENNIFER DICK at [facility] OR ??? Revision of unstable patella 02/13/2012 REPAIR DISLOCATING PATELLA performed by JENNIFER DICK at [facility] OR ??? Knee scope, abrasn arthroplasty 02/13/2012 ARTHROSCOPY KNEE, MULTIPLE DRILLING, MICROFRACTURE performed by JENNIFER DICK at [facility] OR ??? Osteotomy tibia Right 02/10/2014 OSTEOTOMY, TIBIA performed by Jennifer Dick MD at [facility] OR ??? Knee scope, remv loose body Right 02/10/2014 ARTHROSCOPY KNEE REMOVE LOOSE BODY performed by Jennifer Dick MD at [facility] OR ??? 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 Objective: Pt seen for evaluation & functional mobility Pain: 5/10 prior to pain medication (tordol), better upon return to room Vital Signs:room air, comfortable Sat down in chair for rest following stairs due to light headedness, resolved after 1 min rest Mental Status:oriented, alert, appropriate Musculoskeletal: ROM: RLE in locked extension Miryam brace Strength: WFL throughout, not tested RLE Sensation:denies deficit Bed Mobility:independent Transfers:independent Gait: NWB - TDWB RLE in Isanti locked at full extension, crutches Stairs x 6 with crutches, prefers rail use , TDWB RLE Balance:appropriate all positions Informed Consent:pt and family in agreement with PT eval, treatment Education: crutches adjusted for better fit, gait on level surfaces and stairs, precautions, auto transfers Patient status, treatment, and mobility recommendations discussed with nursing. Assessment: independent with crutches on level surfaces, cg on steps Plan:home today with crutches, TDWB with R LE knee locked in ext in Isanti brace Total time spent with patient: 35 minutes Total timed interventions: 10 Minutes TEF LILIANA RIDLEY, PT 02/11/2014 Pager: [phone] Physical Therapy Rehabilitation Department * Plan of Care - Lesly Quinteros RN - 02/11/2014 1:21 AM EST Problem: Peds General Plan of Care Goal: Discharge Needs Assessment 02/11/14103 Discharge Needs Assessment Readmission Within the Last 30 Days no previous admission in last 30 days Equipment Needed After Discharge other (see comments) (Equip at home from previous surgeries.) Self-Care Equipment Currently Used at Home other (see comments) (Pt has equip from previous surgeries) Problem: Skin Integrity Impairment, Risk/Actual (Pediatric) Intervention: Pressure Reduction Techniques 02/11/14103 Skin Interventions Pressure Reduction Techniques tubing/devices free from under/on patient;turned/repositioned Intervention: Wound Healing Promotion 02/11/14103 Skin Interventions Wound Healing Promotion sleep/rest promoted Goal: Identify Signs and Symptoms and Related Risk Factors Signs and symptoms and related risk factors are identified upon initiation of Human Response Clinical Practice Guideline (CPG) 02/11/14103 Skin Integrity Impairment, Risk/Actual Personal Related Risk Factors (Skin Integrity Impairment, Risk/Actual) stress Physiological Related Risk Factors (Skin Integrity Impairment, Risk/Actual) edema Treatment Related Related Risk Factors (Skin Integrity Impairment, Risk/Actual) medication;physicalimmobilization Signs and Symptoms (Skin Integrity Impairment, Risk/Actual) edema Goal: Skin Integrity/Wound Healing Patient will demonstrate the desired outcomes. 02/11/14103 Skin Integrity Impairment, Risk/Actual (Pediatric) Skin Integrity/Wound Healing making progress toward outcome Problem: Fall/Trauma/Injury Risk (Pediatric) Intervention: Reality Orientation 02/11/14103 Cognitive/Perceptual/Neuro Interventions Reality Orientation clock in view;daily routine promoted Intervention: Sensory Stimulation Regulation 02/11/14103 Cognitive/Perceptual/Neuro Interventions Sensory Stimulation Regulation care clustered Intervention: Visual Performance Enhancement 02/11/14103 HEENT Interventions Visual Performance Enhancement lighting provided/adjusted;consistent room organization maintained Intervention: Muscle Strengthening 02/11/14103 Musculoskeletal Interventions Muscle Strengthening activity/mobility promoted Intervention: Sensation Impairment Protection 02/11/14103 Peripheral Neurovascular Interventions Sensation Impairment Protection environment clear of obstacles/tripping hazards Intervention: Self-Care Promotion 02/11/14103 Musculoskeletal Interventions Self-Care Promotion instruction in safe use of adaptive equipment provided;toileting assistance provided Goal: Identify Signs and Symptoms and Related Risk Factors Signs and symptoms and related risk factors are identified upon initiation of Human Response Clinical Practice Guideline (CPG) 02/11/14103 Fall/Trauma/Injury Risk Personal Related Risk Factors (Fall/Trauma/Injury Risk) gait/mobility problems/weakness;maturational age Treatment Related Related Risk Factors (Fall/Trauma/Injury Risk) invasive/noninvasive equipment;medication Signs and Symptoms (Fall/Trauma/Injury Risk) presence of risk factors Goal: Absence of Trauma/Injury/Falls Patient will demonstrate the desired outcomes. 02/11/14103 Fall/Trauma/Injury Risk (Pediatric) Absence of Trauma/Injury/Falls making progress toward outcome Problem: Pain, Acute (Pediatric) Intervention: Pain Management Interventions 02/11/14103 Pain/Comfort Assessments Pain Management Interventions multimodal measures utilized;[id number] dosing utilized;awakened for pain meds per patient preference Goal: Identify Signs and Symptoms and Related Risk Factors Signs and symptoms and related risk factors are identified upon initiation of Human Response Clinical Practice Guideline (CPG) 02/11/14103 Pain, Acute Related Risk Factors (Acute Pain) environment;fear (of unknown, discomfort, harm, addiction) Signs and Symptoms (Acute Pain) autonomic responses (sympathetic stimulation) Goal: Acceptable Pain Control/Comfort Level Patient will demonstrate the desired outcomes. 02/11/14103 Pain, Acute (Pediatric) Acceptable Pain Control/Comfort Level making progress toward outcome Problem: Skin Integrity Impairment, Risk/Actual (Adult, Obstetrics) Intervention: Pressure Reduction Techniques 02/11/14103 Skin Interventions Pressure Reduction Techniques tubing/devices free from under/on patient;turned/repositioned Intervention: Wound Healing Promotion 02/11/14103 Skin Interventions Wound Healing Promotion sleep/rest promoted Goal: Identify Signs and Symptoms and Related Risk Factors Signs and symptoms and related risk factors are identified upon initiation of Human Response Clinical Practice Guideline (CPG) 02/11/14103 Skin Integrity Impairment, Risk/Actual Personal Related Risk Factors (Skin Integrity Impairment, Risk/Actual) stress Physiological Related Risk Factors (Skin Integrity Impairment, Risk/Actual) edema Treatment Related Related Risk Factors (Skin Integrity Impairment, Risk/Actual) medication;physicalimmobilization Signs and Symptoms (Skin Integrity Impairment, Risk/Actual) edema Goal: Skin Integrity/Wound Healing Patient will demonstrate the desired outcomes. 02/11/14103 Skin Integrity Impairment, Risk/Actual (Adult, Obstetrics) Skin Integrity/Wound Healing making progress toward outcome Comments: OUTCOME EVALUATION NOTE: OUTCOME SUMMARY: Samreen is making progress toward outcome goals. She is familiar with post op care and needs as she has had repeated similar surgeries. Therefore her progress is better than expected PLAN MOVING FORWARD: Assistance in making progress toward outcome goals. INDIVIDUALIZED FALL PREVENTION: Maintaining an environment conducive to ambulation with crutches. Assistance: Standby assistance to assure stable transfers. Supervision RN and family Surveillance: The registered nurse will be responsible for purposeful rounding on each of their patients. Purposeful rounding will address the patient's pain/comfort, safety, and presence of family/observer at bedside. Purposeful rounding performed hourly between 0800 and 1800, and every other hourbetween 2000 and 0800. CPG GOAL OUTCOME EVALUATION: Making progress toward outcome goals. * Plan of Care - Heather Bradley RN - 02/10/2014 7:36 PM EST Problem: Peds General Plan of Care Goal: Plan of Care Review Outcome: Ongoing (Interventions Implemented as Appropriate) 02/10/141924 Plan of Care Review Plan of Care Outcome Status ongoing (interventions implemented as appropriate) Progress improving Coping/Psychosocial Response Interventions Plan of Care Reviewed with father;mother OUTCOME EVALUATION NOTE: OUTCOME SUMMARY: Pt arrived from OR 1645, stable and denying issues surrounding pain. Taking good PO and eating well. Ambulates well to bathroom with assistance and crutches. No problems identified. Will continue to monitor. PLAN MOVING FORWARD: Continued observation for pain. Switch to PO pain medications. Monitor CSM. Monitor for n/v. Continued scheduled Ancef. INDIVIDUALIZED FALL PREVENTION: Assistance: Stand by assist with crutches. Supervision: RN and mom. Surveillance: The registered nurse will be responsible for purposeful rounding on each of their patients. Purposeful rounding will address the patient's pain/comfort, safety, and presence of family/observer at bedside. Purposeful rounding performed hourly between 0800 and 1800, and every other hourbetween 2000 and 0800. CPG GOAL OUTCOME EVALUATION: Goal: Peds Individualization and Mutuality Outcome: Ongoing (Interventions Implemented as Appropriate) 02/10/141924 Individualization Individualize the Plan of Care: ongoing (interventions implemented as appropriate) Goal: Discharge Needs Assessment 02/10/141924 Discharge Needs Assessment Concerns to be Addressed basic needs concerns Concerns Comments mobility concerns Readmission Within the Last 30 Days no previous admission in last 30 days Equipment Needed After Discharge none Current Health Anticipated Changes Related to Illness none Self-Care Equipment Currently Used at Home none Living Environment Transportation Available car Problem: Skin Integrity Impairment, Risk/Actual (Pediatric) Goal: Identify Signs and Symptoms and Related Risk Factors Signs and symptoms and related risk factors are identified upon initiation of Human Response Clinical Practice Guideline (CPG) Outcome: Ongoing (Interventions Implemented as Appropriate) 02/10/141924 Skin Integrity Impairment, Risk/Actual Physiological Related Risk Factors (Skin Integrity Impairment, Risk/Actual) sensory impairment Goal: Skin Integrity/Wound Healing Patient will demonstrate the desired outcomes. Outcome: Ongoing (Interventions Implemented as Appropriate) 02/10/141924 Skin Integrity Impairment, Risk/Actual (Pediatric) Skin Integrity/Wound Healing making progress toward outcome Problem: Fall/Trauma/Injury Risk (Pediatric) Goal: Identify Signs and Symptoms and Related Risk Factors Signs and symptoms and related risk factors are identified upon initiation of Human Response Clinical Practice Guideline (CPG) Outcome: Ongoing (Interventions Implemented as Appropriate) 02/10/141924 Fall/Trauma/Injury Risk Environmental Related Risk Factors (Fall/Trauma/Injury Risk) environment unfamiliar Physiological Related Risk Factors (Fall/Trauma/Injury Risk) pain Treatment Related Related Risk Factors (Fall/Trauma/Injury Risk) invasive/noninvasive equipment Signs and Symptoms (Fall/Trauma/Injury Risk) presence of risk factors Goal: Absence of Trauma/Injury/Falls Patient will demonstrate the desired outcomes. Outcome: Ongoing (Interventions Implemented as Appropriate) 02/10/141924 Fall/Trauma/Injury Risk (Pediatric) Absence of Trauma/Injury/Falls making progress toward outcome Problem: Pain, Acute (Pediatric) Goal: Identify Signs and Symptoms and Related Risk Factors Signs and symptoms and related risk factors are identified upon initiation of Human Response Clinical Practice Guideline (CPG) Outcome: Ongoing (Interventions Implemented as Appropriate) 02/10/141924 Pain, Acute Related Risk Factors (Acute Pain) immobility/position;procedures;surgery Signs and Symptoms (Acute Pain) fatigue/weakness Goal: Acceptable Pain Control/Comfort Level Patient will demonstrate the desired outcomes. Outcome: Ongoing (Interventions Implemented as Appropriate) 02/10/141924 Pain, Acute (Pediatric) Acceptable Pain Control/Comfort Level making progress toward outcome Problem: Skin Integrity Impairment, Risk/Actual (Adult, Obstetrics) Goal: Identify Signs and Symptoms and Related Risk Factors Signs and symptoms and related risk factors are identified upon initiation of Human Response Clinical Practice Guideline (CPG) Outcome: Ongoing (Interventions Implemented as Appropriate) 02/10/141924 Skin Integrity Impairment, Risk/Actual Physiological Related Risk Factors (Skin Integrity Impairment, Risk/Actual) sensory impairment Goal: Skin Integrity/Wound Healing Patient will demonstrate the desired outcomes. Outcome: Ongoing (Interventions Implemented as Appropriate) 02/10/141924 Skin Integrity Impairment, Risk/Actual (Adult, Obstetrics) Skin Integrity/Wound Healing making progress toward outcome * Op Note - Jennifer Dick MD - 02/10/2014 4:16 PM EST [facility] Patient Name: Samreen Martinez : [id number] MR#: [id number] Case Date: 02/10/2014 Surgeon: Surgeon(s) and Role: * Jennifer Dick MD - Primary * Frankie Arvizu PA * Cisco Rene MD Preoperative diagnosis: recurant patella dislocation rt Postoperative diagnosis: recurant patella dislocation rt Procedure(s): OSTEOTOMY, TIBIA ALAINA ARTHROSCOPY KNEE REMOVE LOOSE BODY REPAIR DISLOCATING PATELLA Anesthesia: GLMA WITH FNB Findings: HYPOPLASTIC TROCHLEA, LOOSE BODY LATERAL GUTTER; SIGNIFICANT SYNOVITIS AND CHONDRAL CHANGES LATERAL FEMORAL CONDYLE Estimated Blood Loss: 60cc Specimens removed during surgery: None Drains: None Surgical Closure: Primary Closure - closure of ALL tissue levels during the original surgery regardless of wires, wickes, drains, or other devices extruding through the incision Disposition: awakened from anesthesia, extubated and taken to the recovery room in a stable condition, having suffered no apparent untoward event. 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 She has been treated previously with conservative measures and arthroscopic measures for lateral release and medial reefing; however, she failed these and chronically dislocated. Discussion of possible treatment options were had with the patient and her family. They have elected to proceed with operative intervention. PROCEDURE DESCRIPTION: Samreen was greeted in the preoperative holding area. Her identity was confirmed. The consent was reviewed with her and her family. She was brought back to the operating room and placed in a supine position. She was anesthetized with LMA and then a femoral nerve was placed while in anesthesia. Prophylactic antibiotics were given in the form of cefazolin. The right leg was then prepped and draped in a typical fashion and a non-sterile tourniquet was placed high up onto the right thigh. A time-out was performed per [facility] time-out policy. An arthroscopy was first performed for the right knee. An anterolateral portal was placed in a standard fashion, making a sharp incision in the skin and deepened to the soft tissues. A trocar was bluntly entered into the knee. Medially, we were able to notice some significant synovitis about the suprapatellar pouch area. There was significant amount of synovitis. There was a large osteophyte with significant wear on the lateral femoral condyle. The trochlea was slightly dysplastic, especially the lateral part of it. There was chondral damage, both on the medial and lateral facets of the patellae, worse on the lateral than the medial. In addition, there was a loose body noted in the tibia in the lateral gutter. Next, a superolateral portal was placed. This was first directed with a spinal needle. Once this was in appropriate position, a knife was used to penetrate the skin and soft tissues and the capsule. A biter was placed into the knee joint and the loose body was removed in whole. This concluded the arthroscopy. A midline incision was made at the level of the inferior pole of patella down to approximately 7 cm distal to the joint line. The soft tissues were incised sharply down to the level of the extensor mechanism and periosteum . All bleeding was coagulated. Flaps were elevated both medially and laterally to expose the extensor mechanism and the periosteum. Once this was done, a plane was developed between the paratenon and the bursal surfaces in the extensor mechanism. We were able to isolate the tendon and putting hemostat behind the patellar tendon. With this done, we then took a Bovie to transect the tendinous insertion and the tibialis anterior from the lateral tibia leaving a small cuff for repair. Once the fascia of this was incised, we used a Rubio to bluntly elevate off the attaching muscle fibers of the tibialis anterior from the lateral tibia to expose the entire lateral surface of the tibia. Once this was exposed, again attention was turned medially where similarly we were able to [place] out our probable saw cuts for the osteotomy. This was drawn out on the medial side all the way to the level of the patellar tendon insertion. Using an oscillating saw, we then proceeded with the osteotomy of the proximal tibia. This was done with approximately 45 to 60-degree angle, medial to lateral, which flattened as we moved proximally to distally. Also,it was curved such that it exited anteriorly more distal. The saw then exited on the more posterior portion of the medial tibia, but not posteriorly. This was performed for the length of the planned cut. Proximally, it was still attached and distally we left a small wafer periosteum and anterior cortex for distal attachment. A series of osteotomes were then used to help free the proximal portion connecting the more posterolateral cut to the more superficial medial cut. This was then connected and the piece was able to be lifted off and moved anteriorly and medially. With approximately 1 cm of medialization and approximately 1 cm of anteriorization, we then proceeded with fixation of this fragment. The plan was to use a 4.5 mm screw. A 4.5 mm drill was used to initiate a drill hole in the anterior osteotomy fragment. Then a 3.2 mm drill was used to complete the screw pass through the second cortex. This was done and measured and appropriate size screw was then placed. This was repeated for a second screw. It was noted that both screws had bicortical purchase. There was no splintering or fracturing of the osteotomy. The knee was then placed in a range of motion. There was noted to be nice tracking of the patella. The patella stayed in the trochlear groove. It stayed medial during this entire procedure. Incision was then extended proximally into the superior pole of patella. A lateral release was performed by creating a plane between the synovium and the capsule. With a pair of [place] scissors, we were able to cut the lateral capsular structures. Next, attention was then turned to the medial side. The medial capsule was identified underneath the anterior bursal structures. An incision approximately 3 cm in length was then made in the capsule leaving cuff on the superomedial aspect of the patella. The synovium was attempted to be left intact underneath this. MPFL was unable to be fully recognized, though there was thickening that was noticed. We then performed a medial capsular imbrication using the 0 Vicryl stitches in a [id number] type technique. This was done and noted to have good tightening of the medial retinacular tissues. Again, after the soft tissue procedure performed, we again took the knee through range of motion and noted again to have a well-centered patella with good range of motion. We did not inflate the tourniquet during the case. We controlled all bleeding with electrocautery. There was minimal blood loss. The fascia of the tibialis anterior was repaired more distally than proximally. The deep tissues overlying the extensor mechanism were then reapproximated. Thorough irrigation was performed throughout the wound. Deep tissues were reapproximated with 0 Vicryl stitch in a buried interrupted fashion. The deep dermis was reapproximated with 3-0 Vicryl stitch in a buried interrupted fashion. The skin was closed with 3-0 Monocryl in a running subcuticular stitch. Dermabond was applied to the wound. The wound was dressed with 4x4s, ABD, Kerlix, and Casey. The knee was then placed into a [place] knee brace in full extension, locked. At the end of the case, all counts were correct. No tourniquet was used. Dr. dick was the attending physician who was present for all major portions of this case. * Brief Op Note - Jennifer Dick MD - 02/10/2014 2:46 PM EST Brief Operative Note Patient Name: Samreen Martinez : [id number] MR#: [id number] Case Date: 02/10/2014 Surgeon: Surgeon(s) and Role: * Jennifer Dick MD - Primary * Frankie Arvizu PA * Cisco Rene MD Preoperative diagnosis: recurant patella dislocation rt Postoperative diagnosis: recurant patella dislocation rt Procedure(s): OSTEOTOMY, TIBIA ALAINA ARTHROSCOPY KNEE REMOVE LOOSE BODY REPAIR DISLOCATING PATELLA Anesthesia: GLMA WITH FNB Findings: HYPOPLASTIC TROCHLEA, LOOSE BODY LATERAL GUTTER; SIGNIFICANT SYNOVITIS AND CHONDRAL CHANGES LATERAL FEMORAL CONDYLE Complications: NONE Fluids: 600 CC CRYSTALLOID Estimated Blood Loss: 60 CC Drains: NONE Implant Name Type Inv. Item Serial No. Building Service Worker Lot No. LRB No. Used Action SCREW,CRTX,STAP,[id number] ([id number]) - [id number] IMPLANTS [id number] SYNTHES - [id number] Right 1 Implanted SCREW,CRTX,STAP,[id number] ([id number]) - [id number] IMPLANTS [id number] SYNTHES - [id number] Right 1 Implanted PLAN: TDWB IN MIRYAM LOCKED IN FULL EXTENSION, IBUPROFEN FOR ANTICOAG. WILL START ROM IN 2-3 WEEKS. Disposition: awakened from anesthesia, extubated and taken to the recovery room in a stable condition, having suffered no apparent untoward event. Condition: doing well without problems documented in this encounter Plan of Treatment Not on file documented as of this encounter Procedures Procedure Name Priority Date/Time Associated Diagnosis Comments XR KNEE DIAGNOSTIC 1 OR 2 VIEW Routine 02/10/2014 4:02 PM EST REPAIR DISLOCATING PATELLA (WRVU 10.26) 02/10/2014 12:45 PM EST recurant patella dislocation rt ARTHROSCOPY KNEE REMOVE LOOSE BODY (WRVU 7.19) 02/10/2014 12:45 PM EST recurant patella dislocation rt OSTEOTOMY, TIBIA (WRVU 10.86) 02/10/2014 12:45 PM EST recurant patella dislocation rt documented in this encounter Results * XR knee diagnostic 1 or 2 view (02/10/2014 4:02 PM EST) Anatomical Region Laterality Modality Knee N/A Radiographic Savana ging 02/10/2014 4:02 PM EST Narrative 02/10/2014 4:11 PM EST Examination KNEE 1 OR 2 VIEWS/RIGHT/XPORT Clinical History s/p right knee osteotomy Comparison 11/22/2013. Technique Portable cross-table lateral and AP views of the right knee. Findings There is air and fluid within the knee joint, and prepatellar diffuse soft tissue edema compatible with recent operative status. ??2 screws are present in the proximal tibial metaphysis. ??No acute fracture, dislocation, or subluxation. Procedure Note Diana Julio MD - 02/10/2014 Examination KNEE 1 OR 2 VIEWS/RIGHT/XPORT Clinical History s/p right knee osteotomy Comparison 11/22/2013. Technique Portable cross-table lateral and AP views of the right knee. Findings There is air and fluid within the knee joint, and prepatellar diffuse soft tissue edema compatible with recent operative status. 2 screws arepresent in the proximal tibial metaphysis. No acute fracture, dislocation, or subluxation. Jennifer Dick MD IMG DX ORDERABLES documented in this encounter Visit Diagnoses Diagnosis Recurrent dislocation of right patella - s/p Aalina osteotomy, medial imbrication, lateral release (02/10/14)- Primary Recurrent dislocation of lower leg joint Knee pain, right Pain in joint, lower leg documented in this encounter Administered Medications Inactive Administered Medications - up to 3 most recent administrations Medication Order MAR Action Action Date Dose Rate Site ceFAZolin (ANCEF) 1g in dextrose 5% 50mL 1,000 mg (10.6 mg/kg/dose = 1 g), Intravenous, EVERY 8 HOURS, 3 doses, First dose on 02/10/14 at 2000, Last dose on Tu02/11/14 at 1200, Administer over 30 Minutes, Indication for (Active or Suspected): Prophylaxis Given 02/11/2014 1:04 PM EST 1,000 mg 100 mL/hr Given 02/11/2014 4:10 AM EST 1,000 mg 100 mL/hr Given 02/10/2014 8:58 PM EST 1,000 mg 100 mL/hr dextrose 5% and sodium chloride 0.9% infusion 100 mL/hr, Intravenous, CONTINUOUS, Starting on Mon02/10/14 at 1730, Until Mon02/11/14 at 0329 Rate/Dose Change 02/11/2014 4:10 AM EST 5 mL/hr 5 mL/hr Rate/Dose Verify 02/10/2014 11:00 PM EST 100 mL/hr 100 mL /hr Rate/Dose Verify 02/10/2014 8:00 PM EST 100 mL/hr 100 mL/ hr docusate sodium (COLACE) capsule 100 mg 100 mg (1.06 mg/kg/dose), Oral, DAILY, First dose on Mon02/10/14 at 1730, Until Discontinued, Routine Given 02/11/2014 9:15 AM EST 100 mg Given 02/10/2014 7:59 PM EST 100 mg ibuprofen (ADVIL;MOTRIN) tablet 400 mg 400 mg (4.26 mg/kg/dose), Oral, EVERY 8 HOURS SCHEDULED, First dose on Mon02/11/14 at 1400, Until Discontinued, Administer orally with milk or food to minimize GI irritation, Routine Given 02/11/2014 2:26 PM EST 400 mg ketorolac (TORADOL) 15 mg/mL injection 1 dose, Starting on Mon02/10/14 at 1527, Until Mon02/10/14 at 1545, ELIZA SAMANO: zay smith ketorolac (TORADOL) injection 15 mg 15 mg (0.16 mg/kg/dose), Intravenous, EVERY 8 HOURS, 6 doses, First dose on Mon02/10/14 at 1600, Last dose on Mon02/12/14 at 0800, Routine Given 02/11/2014 9:01 AM EST 15 mg Given 02/11/2014 12:23 AM EST 15 mg Given 02/10/2014 3:45 PM EST 15 mg lactated ringers infusion 1,000 mL 1,000 mL, at 100 mL/hr, Intravenous, CONTINUOUS, Starting on Mon02/10/14 at 1200, Until Mon02/10/14 at 1626, Day of Surgery (Day of Procedure) New Bag 02/10/2014 12:33 PM EST 1,000 mLs 100 mL/hr ondansetron (ZOFRAN) injection 4 mg 4 mg (0.0426 mg/kg/dose), Intravenous, EVERY 30 MIN PRN, Starting on Mon02/10/14 at 1521, Until Mon02/10/14 at 1626, Nausea, May repeat 4 mg once in 30 minutes. Consider prochlorperazine if ineffective., PACU Recovery Given 02/10/2014 4:13 PM EST 4 mg ondansetron (ZOFRAN) injection 4 mg 4 mg (0.0426 mg/kg/dose), Intravenous, EVERY 8 HOURS PRN, Starting on Mon02/10/14 at 1953, Until Mon02/11/14 at 1658, Nausea Given 02/10/2014 8:00 PM EST 4 mg ondansetron (ZOFRAN-ODT) oral disintegrating tablet 4 mg 4 mg (0.0426 mg/kg/dose), Oral, ONCE, 1 dose, On Mon02/11/14 at 1300, Routine Given 02/11/2014 1:13 PM EST 4 mg oxyCODONE (ROXICODONE) immediate release tablet 5-15 mg 5-15 mg (0.0532-0.1597 mg/kg/dose), Oral, EVERY 4 HOURS PRN, Starting on Mon02/10/14 at 1557, Until Mon02/11/14 at 1658, Pain, Routine Given 02/11/2014 10:26 AM EST 10 mg Given 02/11/2014 9:44 AM EST 5 mg Given 02/11/2014 4:21 AM EST 15 mg documented in this encounter Active and Recently Administered Medications Times are shown in EST. Scheduled Medication Order 02/09/2014 02/10/2014 02/11/2014 ceFAZolin (ANCEF) 1g in dextrose 5% 50mL (COMPLETED) 1,000 mg (10.6 mg/kg/dose = 1 g), Intravenous, EVERY 8 HOURS, 3 doses, First dose on Mon02/10/14 at 2000, Last dose on Mon02/11/14 at 1200, Administer over 30 Minutes, Indication for (Active or Suspected): Prophylaxis 2057 (Given - Provider: Lesly Quinteros RN) 0410 (Given - Provider: Lesly Quinteros, RN)1304 (Given - Provider: Pam Alexander - Comment: previous med spilled on the ground. New med sent from pharmacy) ceFAZolin (ANCEF) 2g in dextrose 5% 50 mL (COMPLETED) 2 g (0.0212 g/kg), Intravenous, EVERY 3 HOURS, 1 dose, First dose on Mon02/10/14 at 1200, Redose after 3 hours., Intra-Operative (Intra-Procedure), Indication for (Active or Suspected): Prophylaxis 1257 (Given - Provider: Cherelle Frey) docusate sodium (COLACE) capsule 100 mg 100 mg (1.06 mg/kg/dose), Oral, DAILY, First dose on Mon02/10/14 at 1730, Until Discontinued, Routine 1959 (Given - Provider: Heather Bradley, YOLY) 0915 (Given - Provider: Pam Alexander) ibuprofen (ADVIL;MOTRIN) tablet 400 mg 400 mg (4.26 mg/kg/dose), Oral, EVERY 8 HOURS SCHEDULED, First dose on Mon02/11/14 at 1400, Until Discontinued, Administer orally with milk or food to minimize GI irritation, Routine 1426 (Given - Provid er: Pam Alexander) ketorolac (TORADOL) injection 15 mg (CANCELED) 15 mg (0.16 mg/kg/dose), Intravenous, EVERY 8 HOURS, 6 doses, First dose on Mon02/10/14 at 1600, Last dose on Mon02/12/14 at 0800, Routine 1545 (Given - Provider: Kasie Sharp RN)1600 (Canceled Entry - Provider: Heather Bradley, RN - Comment: given by other) 0023 (Given - Provider: Lesly Quinteros, YOLY)0901 (Given - Provider: Pam Alexander) ondansetron (ZOFRAN-ODT) oral disintegrating tablet 4 mg (COMPLETED) 4 mg (0.0426 mg/kg/dose), Oral, ONCE, 1 dose, On Mon02/11/14 at 1300, Routine 1313 (Given - Provid er: Pam Alexander) polyethylene glycol (MIRALAX) packet 17 g 17 g (0.181 g/kg), Oral, ONCE, 1 dose, On Mon02/11/14 at 1300, Routine 1427 (Not Given - Provider: Pam Alexander - Reason: Patient/family refused) Continuous Medication Order 02/09/2014 02/10/2014 02/11/2014 dextrose 5% and sodium chloride 0.9% infusion () 100 mL/hr, Intravenous, CONTINUOUS, Starting on Mon02/10/14 at 1730, Until Mon02/11/14 at 0329 1726 (New Bag - Provider: Heather Bradley RN)2000 (Rate/Dose Verify - Provider: Lesly Quinteros, YOLY)2300 (Rate/Dose Verify - Provider: Lesly Quinteros, RN) 0410 (Rate/Dose Change - Provider: Lesly Quinteros, YOLY) lactated ringers infusion 1,000 mL (CANCELED) 1,000 mL, at 100 mL/hr, Intravenous, CONTINUOUS, Starting on Mon02/10/14 at 1200, Until Mon02/10/14 at 1626, Day of Surgery (Day of Procedure) 1233 (New Bag - Provider: Yamileth Kramer RN)1443 (Stopped - Provider: Cherelle Frey) PRN Medication Order 02/09/2014 02/10/2014 02/11/2014 acetaminophen (TYLENOL) tablet 650 mg 650 mg (6.92 mg/kg/dose), Oral, EVERY 6 HOURS PRN, Starting on Mon02/10/14 at 1712, Until Mon02/11/14 at 1658, Pain, Do NOT exceed 75 mg/kg for 24 hours, Routine EPINEPHrine (ADRENALIN) injection (CANCELED) ONCE PRN, Starting on Mon02/10/14 at 1320, Until Mon02/10/14 at 1626, Intra-Operative (Intra-Procedure), Routine 1320 (Given - Provider: Jennifer Dick MD - Comment: mixed with 50 cc of NS) ondansetron (ZOFRAN) injection 4 mg (CANCELED) 4 mg (0.0426 mg/kg/dose), Intravenous, EVERY 30 MIN PRN, Starting on Mon02/10/14 at 1521, Until Mon02/10/14 at 1626, Nausea, May repeat 4 mg once in 30 minutes. Consider prochlorperazine if ineffective., PACU Recovery 1613 (Given - Provider: Kasie Sharp, YOLY) ondansetron (ZOFRAN) injection 4 mg (CANCELED)(Linked Group 1) 4 mg (0.0426 mg/kg/dose), Intravenous, EVERY 8 HOURS PRN, Starting on Mon02/10/14 at 1953, Until Mon02/11/14 at 1658, Nausea 1999 (Given - Provider: Heather Bradley RN) oxyCODONE (ROXICODONE) immediate release tablet 5-15 mg 5-15 mg (0.0532-0.1597 mg/kg/dose), Oral, EVERY 4 HOURS PRN, Starting on Mon02/10/14 at 1557, Until Mon02/11/14 at 1658, Pain, Routine 1607 (Given - Provider: Kasie Sharp, YOLY) 0024 (Given - Provider: Lesly Quinteros, YOLY)0421 (Given - Provider: Lesly Quinteros, YOLY)0944 (Given - Provider: Pam Alexander)1026 (Given - Provider: Pam Alexander - Comment: to equal 15mg) Linked Groups Order Group 1: ondansetron (ZOFRAN) injection 4 mg (CANCELED)Jump to med 4 mg (0.0426 mg/kg/dose), Intravenous, EVERY 8 HOURS PRN, Starting on Mon02/10/14 at 1953, Until Mon02/11/14 at 1658, Nausea Or ondansetron (ZOFRAN) injection 8 mg (CANCELED) 8 mg (0.0852 mg/kg/dose), Intravenous, EVERY 8 HOURS PRN, Starting on Mon02/10/14 at 1953, Until Mon02/11/14 at 1658, Nausea documented in this encounter Care Teams Senior Oracle Database Developer Relationship Specialty Start Date End Date Virginia Cramer MD [address] [place] [address] [place] [address] PCP - General 04/27/10 07/16/15 documented as of this encounter
--- OUTSIDE RECORDS SUMMARY | 2023-12-15 02:23 | XMS_ITS | Encounter Summary ---
Author Organization [facility] Address [facility] [place] [address] Care Team Providers Care Heel Cementer Machine Name Role Phone Virginia Cramer MD Primary Care Provider [phone] Encounter Details Date Type Department Care Team (Late st Contact Info) Description 09/08/2014 7:30 AM EDT - 09/08/2014 9:58 AM EDT Surgery [place] [id number] Jennifer Zhang MD [facility] [place] [address] OSTEOTOMY, TIBIA (WRVU 10.86) Social History Tobacco Use Types Packs/Day Years [...] Sign Reading Time Taken Comments Blood Pressure 141/67 09/08/2014 6:55 AM EDT Pulse 98 09/08/2014 6:55 AM EDT Temperature 36.6 ??C (97.9 ??F) 09/08/2014 6:55 AM ED T Respiratory Rate 18 09/08/2014 6:55 AM EDT Oxygen Saturation 100% 09/08/2014 6:55 AM EDT Inhaled Oxygen Concentration - - Weight 97 kg (213 lb 13.5 oz) 09/08/2014 6:55 AM EDT Height 160 cm (5' 2.99) 09/08/2014 6:55 AM EDT Body Mass Index 37.89 09/08/2014 6:55 AM EDT Body Mass Index Percentile 99.61% 09/08/2014 6:5 5 AM EDT Growth Chart: [facility] (Girls, 2- 20 Years) documented in this encounter Discharge Summaries * Hema Parker - 09/09/2014 11:45 AM EDT Discharge Summary Patient Name: Samreen Martinez Patient Age: 14 y.o. Language: Emirati Race: White Ethnicity: Not nor Admit date: 09/08/2014 Discharge date and time: 09/09/2014 Attending Physician: Jennifer Zhang MD Discharge Physician: Jennifer Zhang MD Follow-up Recommendations for Providers: Future Appointments Date Time Provider Department Center 09/16/2014 3:30 PM Jennifer Zhang MD [facility] None Inpatient Provider Contact Information: Dr. Jennifer Zhang MD Trauma: [phone] After hours and weekends, call [facility] Operating Systems Specialist, , and have Orthopedic resident paged. Discharge [...] Weight: Wt Readings from Last 1 Encounters: 09/08/14 97 kg (213 lb 13.5 oz) (99.32 [...] Rate: [86-94] Blood Pressure BP: 112/61 mmHg @@ Respiratory Rate Resp: 16 Resp: [16-18] SpO2 SpO2: 98 % @[id number]@ Art BP BP (Arterial Line): -- Functional [...] Sennakot, tofacilitate a bowel movement. Miralax, an saet-fnz-atxcglg medication can also be taken to help [...] stitches to be removed. Call your doctor (#[phone]) if you develop: 1. fevers greater than 100.5 2. severe nausea or vomiting 3. increasing pain not controlled by pain medications 4. increasing redness or drainage from incisions 5. Change in sensation FOLLOWUP APPOINTMENTS: 1. You will have followup appointments at [facility] as indicated in Future Appointment and Orders. [...] 09/16/2014 3:30 PM Jennifer Zhang MD Orthopaedics [phone] Joint Appt ORTHO, QUESTIONNAIRE THREE D Orthopaedics [phone] Future Orders Complete By Expires XR knee 4 or more views [91195 Custom] 09/08/2014 (Approximate) 09/08/2015 Process Instructions: Scheduling [...] sponsor?: Primary Care Provider: VIRGINIA CRAMER MD [phone] Discharge References/Attachments None documented in this encounter Discharge Instructions * Patient Instructions* Hema Parker - 09/09/2014 11:35 AM EDT Activity level: [...] Sennakot, tofacilitate a bowel movement. Miralax, an wvba-seq-dsqabey medication can also be taken to help [...] stitches to be removed. Call your doctor (#[phone]) if you develop: 1. fevers greater than 100.5 2. severe nausea or vomiting 3. increasing pain not controlled by pain medications 4. increasing redness or drainage from incisions 5. Change in sensation FOLLOWUP APPOINTMENTS: 1. You will have followup appointments at [facility] as indicated in Future Appointment and Orders. [...] KNEE, DIAGNOSTIC performed by BRENDAN NAVARRO at [facility] OR ??? Apply long leg cast 08/31/2010 CAST APPLICATION, LONG LEG (THIGH TO TOES) performed by BRENDAN NAVARRO at [facility] OR ??? Knee scope, shave articular cart 08/31/2010 ARTHROSCOPY KNEE CHONDROPLASTY performed by BRENDAN NAVARRO at [facility] OR ??? Knee scope, drill oste diss+int fix 08/31/2010 ARTHROSCOPY KNEE, DRILLING & FIXATION OF OCD performed by BRENDAN NAVARRO at [facility] OR ??? Fix unstable patella, exten realign 12/16/2010 PATELLAR REALIGNMENT performed by BRENDAN NAVARRO at [facility] OR ??? Knee scope, remv loose body 12/16/2010 ARTHROSCOPY KNEE REMOVE LOOSE BODY performed by JENNIFER ZHANG at [facility] OR ??? Knee scope, abrasn arthroplasty 12/16/2010 ARTHROSCOPY KNEE, MULTIPLE DRILLING, MICROFRACTURE performed by JENNIFER ZHANG at [facility] OR ??? Apply long leg cast 12/16/2010 CAST APPLICATION, LONG LEG (THIGH TO TOES) performed by JENNIFER ZHANG at [facility] OR ??? Knee scope, part synovect 04/05/2011 ARTHROSCOPY KNEE SYNOVECTOMY LIMITED performed by JENNIFER ZHANG at [facility] OR ??? Drain/inject large joint/bursa 04/05/2011 ARTHROCENTESIS, ASPIRATION OR INJECTION, MAJOR JOINT OR BURSA, KNEE performed by JENNIFER ZHANG at [facility] OR ??? Knee scope, remv loose body 02/13/2012 ARTHROSCOPY KNEE REMOVE LOOSE BODY performed by JENNIFER ZHANG at [facility] OR ??? Arthrotomy/explore/treat knee joint 02/13/2012 ARTHROTOMY, KNEE WITH EXPLORATION performed by JENNIFER ZHANG at [facility] OR ??? Revision of unstable patella 02/13/2012 REPAIR DISLOCATING PATELLA performed by JENNIFER ZHANG at [facility] OR ??? Knee scope, abrasn arthroplasty 02/13/2012 ARTHROSCOPY KNEE, MULTIPLE DRILLING, MICROFRACTURE performed by JENNIFER ZHANG at [facility] OR ??? Osteotomy tibia Right 02/10/2014 OSTEOTOMY, TIBIA performed by Jennifer Zhang MD at [facility] OR ??? Knee scope, remv loose body Right 02/10/2014 ARTHROSCOPY KNEE REMOVE LOOSE BODY performed by Jennifer Zhang MD at [facility] OR ??? Revision of unstable patella Right 02/10/2014 REPAIR DISLOCATING PATELLA performed by Jennifer Zhang MD at [facility] OR Social History: Patient lives with their [...] person, place, and time Musculoskeletal: ROM: Impaired. Hutchinson knee brace donned and locked at 0. [...] TDWB on L LE with leg in Hutchinson brace locked at 0 deg extension. Swing [...] minutes LUPILLO Barbosa, PT Evaluation: 09/08/2014 Pager: [phone] Physical Therapy Rehabilitation Department * Sujatha Rand [...] PT. Plan: Mobilize with PT, TDWB LLE Miryam brace locked in extension at all times [...] knee Shira osteotomy and lateral release 09/08/14 ([place]) 09/08/2014 ??? 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 Knee pain, right 01/12/2012 ? ? R knee arthroscopy, microfracture & medial patellar realignment procedure 02/12 [place] 09/20/2011 ??? Effusion of knee joint 08/16/2010 [...] OR) ( ) Pt. Required physical assistance Smareen was very tearful throughout induction. She received some laughing gas in the OR to help relax her and then received an IV. Samreen was fully cooperative but seemed very upset [...] services or information. USHA Velázquez, CCLS Certified Library Specialist Office: [phone] Pager: [phone] documented in this encounter H&P Notes * [...] Miscellaneous Notes * Plan of Care - aMya Andrews RN - 09/09/2014 1:06 PM EDT Problem: [...] (AVS) and given to the patient or sales representative groceries. 6) If VNA was ordered, I faxed [...] achieves outcome * Initial Assessments - Rola Babcock, OT - 09/09/2014 11:48 AM EDT Occupational [...] KNEE, DIAGNOSTIC performed by BRENDAN NAVARRO at [facility] OR ??? Apply long leg cast 08/31/2010 CAST APPLICATION, LONG LEG (THIGH TO TOES) performed by BRENDAN NAVARRO at [facility] OR ??? Knee scope, shave articular cart 08/31/2010 ARTHROSCOPY KNEE CHONDROPLASTY performed by BRENDAN NAVARRO at [facility] OR ??? Knee scope, drill oste diss+int fix 08/31/2010 ARTHROSCOPY KNEE, DRILLING & FIXATION OF OCD performed by BRENDAN NAVARRO at [facility] OR ??? Fix unstable patella, exten realign 12/16/2010 PATELLAR REALIGNMENT performed by BRENDAN NAVARRO at [facility] OR ??? Knee scope, remv loose body 12/16/2010 ARTHROSCOPY KNEE REMOVE LOOSE BODY performed by JENNIFER ZHANG at [facility] OR ??? Knee scope, abrasn arthroplasty 12/16/2010 ARTHROSCOPY KNEE, MULTIPLE DRILLING, MICROFRACTURE performed by JENNIFER ZHANG at [facility] OR ??? Apply long leg cast 12/16/2010 CAST APPLICATION, LONG LEG (THIGH TO TOES) performed by JENNIFER ZHANG at [facility] OR ??? Knee scope, part synovect 04/05/2011 ARTHROSCOPY KNEE SYNOVECTOMY LIMITED performed by JENNIFER ZHANG at [facility] OR ??? Drain/inject large joint/bursa 04/05/2011 ARTHROCENTESIS, ASPIRATION OR INJECTION, MAJOR JOINT OR BURSA, KNEE performed by JENNIFER ZHANG at [facility] MAIN OR ??? Knee scope, remv loose body 02/13/2012 ARTHROSCOPY KNEE REMOVE LOOSE BODY performed by JENNIFER ZHANG at [facility] OR ??? Arthrotomy/explore/treat knee joint 02/13/2012 ARTHROTOMY, KNEE WITH EXPLORATION performed by JENNIFER ZHANG at [facility] OR ??? Revision of unstable patella 02/13/2012 REPAIR DISLOCATING PATELLA performed by JENNIFER ZHANG at [facility] OR ??? Knee scope, abrasn arthroplasty 02/13/2012 ARTHROSCOPY KNEE, MULTIPLE DRILLING, MICROFRACTURE performed by JENNIFER ZHANG at [facility] OR ??? Osteotomy tibia Right 02/10/2014 OSTEOTOMY, TIBIA performed by Jennifer Zhang MD at [facility] OR ??? Knee scope, remv loose body Right 02/10/2014 ARTHROSCOPY KNEE REMOVE LOOSE BODY performed by Jennifer Zhang MD at [facility] OR ??? Revision of unstable patella Right 02/10/2014 REPAIR DISLOCATING PATELLA performed by Jennifer Zhang MD at [facility] OR ??? Osteotomy tibia Left 09/08/2014 OSTEOTOMY, TIBIA performed by Jennifer Zhang MD at [facility] OR ??? Knee scope, diagnostic Left 09/08/2014 ARTHROSCOPY KNEE, DIAGNOSTIC performed by Jennifer Zhang MD at [facility] OR Social History: Patient lives with her [...] Impaired LLE ROM and strength. Pt with Miryam knee brace donned and locked at [...] you for this occupational therapy consult. Pager: [phone] Rola Babcock OT 09/09/2014 Occupational Therapy Rehabilitation [...] progress toward outcome * Initial Assessments - Katey Barbosa O, PT - 09/08/2014 2:51 PM EDT [...] KNEE, DIAGNOSTIC performed by BRENDAN NAVARRO at [facility] OR ??? Apply long leg cast 08/31/2010 CAST APPLICATION, LONG LEG (THIGH TO TOES) performed by BRENDAN NAVARRO at [facility] OR ??? Knee scope, shave articular cart 08/31/2010 ARTHROSCOPY KNEE CHONDROPLASTY performed by BRENDAN NAVARRO at [facility] OR ??? Knee scope, drill oste diss+int fix 08/31/2010 ARTHROSCOPY KNEE, DRILLING & FIXATION OF OCD performed by BRENDAN NAVARRO at [facility] OR ??? Fix unstable patella, exten realign 12/16/2010 PATELLAR REALIGNMENT performed by BRENDAN NAVARRO at [facility] OR ??? Knee scope, remv loose body 12/16/2010 ARTHROSCOPY KNEE REMOVE LOOSE BODY performed by JENNIFER ZHANG at [facility] OR ??? Knee scope, abrasn arthroplasty 12/16/2010 ARTHROSCOPY KNEE, MULTIPLE DRILLING, MICROFRACTURE performed by JENNIFER ZHANG at [facility] OR ??? Apply long leg cast 12/16/2010 CAST APPLICATION, LONG LEG (THIGH TO TOES) performed by JENNIFER ZHANG at [facility] OR ??? Knee scope, part synovect 04/05/2011 ARTHROSCOPY KNEE SYNOVECTOMY LIMITED performed by JENNIFER ZHANG at [facility] OR ??? Drain/inject large joint/bursa 04/05/2011 ARTHROCENTESIS, ASPIRATION OR INJECTION, MAJOR JOINT OR BURSA, KNEE performed by JENNIFER ZHANG at [facility] OR ??? Knee scope, remv loose body 02/13/2012 ARTHROSCOPY KNEE REMOVE LOOSE BODY performed by JENNIFER ZHANG at [facility] OR ??? Arthrotomy/explore/treat knee joint 02/13/2012 ARTHROTOMY, KNEE WITH EXPLORATION performed by JENNIFER ZHANG at [facility] OR ??? Revision of unstable patella 02/13/2012 REPAIR DISLOCATING PATELLA performed by JENNIFER ZHANG at [facility] OR ??? Knee scope, abrasn arthroplasty 02/13/2012 ARTHROSCOPY KNEE, MULTIPLE DRILLING, MICROFRACTURE performed by JENNIFER ZHANG at [facility] OR ??? Osteotomy tibia Right 02/10/2014 OSTEOTOMY, TIBIA performed by Jennifer Zhang MD at [facility] OR ??? Knee scope, remv loose body Right 02/10/2014 ARTHROSCOPY KNEE REMOVE LOOSE BODY performed by Jennifer Zhang MD at [facility] OR ??? Revision of unstable patella Right 02/10/2014 REPAIR DISLOCATING PATELLA performed by Jennifer Zhang MD at [facility] OR Social History: Patient lives with their [...] person, place, and time Musculoskeletal: ROM: Impaired. Hutchinson knee brace donned and locked at 0. [...] TDWB on L LE with leg in Hutchinson brace locked at 0 deg extension. Mildly [...] 0 minutes Katey Barbosa PT 09/08/2014 Pager: [phone] Physical Therapy Rehabilitation Department * Op Note [...] planned surgery, and site according to the [facility] [place] Protocol. The left leg was prepped and [...] Operative Note Patient Name: Samreen Martinez : [id number] MR#: [id number] Case Date: 09/08/2014 Surgeon: Surgeon(s) and Role: [...] knee documented in this encounter Visit Diagnoses Not on filedocumented in this encounter Administered Medications Inactive Administered [...] Given 09/08/2014 8:24 PM EDT 650 mg bacitracin injection ONCE PRN, Starting on Mon09/08/14 at 0837, Until Mon09/08/14 at 1306, Intra-Operative (Intra-Procedure), Routine Given 09/08/2014 8:37 AM EDT 50,000 Units 19- Surgical Site ceFAZolin (ANCEF) 2g in dextrose 5% 50 [...] Given 09/08/2014 8:25 PM EDT 100 mg EPINEPHrine (ADRENALIN) injection ONCE PRN, Starting on Mon09/08/14 at 0815, Until Mon09/08/14 at 1306, Intra-Operative (Intra-Procedure), Routine Given 09/08/2014 8:15 AM EDT 0.25 mLs 19- Surgical Site fentaNYL (PF) 50 mcg/mL 2mL syringe 25 [...] Routine 1417 (Given - Provider: Kika Salinas RN)2023 (Given - Provider: Pam Narayanan, YOLY) 218 (Given - Provider: Pam Narayanan RN)08 (Given - Provider: Maya Andrews RN) ceFAZolin [...] Not available) 0130 (Given - Provider: Pam Narayanan RN)0949 (Given - Provider: Maya Andrews, YOLY) docusate sodium (COLACE) capsule 100 mg(Linked Group 1) 100 mg (1.03 mg/kg/dose), Oral, DAILY, First dose on Mon09/08/14 at 1400, Until Discontinued, Give an oral suspension if unable to take capsule., Routine 2024 (Given - Provider: Pam Narayanan, YOLY) 0805 (Given - Provider: Maya Andrews, YOLY) Continuous Medication Order 09/07/2014 09/08/2014 09/09/2014 dextrose 5% and sodium chloride 0.45% with potassium chloride 20 mEq infusion (CANCELED) 75 mL/hr, Intravenous, CONTINUOUS, Starting on Mon09/08/14 at 1100, Until Mon09/08/14 at 2023 1100 (New Bag - Provider: Do mitchel Alexis RN)1345 (Stopped - Provider: Kika Salinas, YOLY)1740 (Restarted - Provider: Kika Salinas, RN) PRN Medication Order 09/07/2014 09/08/2014 09/09/2014 bacitracin [...] Yari Alexis RN)1532 (Given - Provider: Alvarado Herrera, RN)1935 (Given - Provider: Kika Salinas, YOLY) 0219 (Given - Provider: Pam Narayanan, YOLY)0805 (Given - Provider: Maya Andrews, RN) No Frequency Medication Order 09/07/2014 09/08/2014 09/09/2014 lidocaine-prilocaine (EMLA) 2.5-2.5 % cream (COMPLETED) Starting on Mon09/08/14 at 0711, 1 dose, Until Mon09/08/14 at 0720, KASIE LENNON: cabinet override 0720 (Given - Provider: Kasie Lennon, RN - Comment: left AC) Linked Groups Order [...] Routine documented in this encounter Care Teams Heel Cementer Machine Relationship Specialty Start Date End Date Virginia Cramer MD [address] [place] [address] PCP - General 04/27/10 07/16/15 documented as of this encounter
--- OUTSIDE RECORDS SUMMARY | 2023-12-15 02:23 | XMS_ITS | Encounter Summary ---
Author Organization [facility] [place] [address] Care Team Providers Care Lumber Yard Worker Name Role Phone Michelet Cramer MD Primary Care Provider [phone] Reason for Visit * Reason Onset Date Comments Questions 11/04/2014 Encounter Details Date Type Department Care Team (Late st Contact Info) Description 11/04/2014 Telephone [place] [phone] Benito Zhang MD [facility] [place] [address] Questions Social History Tobacco Use Types Packs/Day Years [...] Notes * Telephone Encounter - Mary Kate Brown RN - 11/04/2014 11:30 AM EDT Telephone call to below # Michael Love does not know who Samreen's mom is. I called the home phone and left a message that it is just fine for Smareen to go to the dentist. * Telephone Encounter - Sun Michele - 11/04/2014 10:35 AM EDT Who is calling: Patient Mom Have you had Surgery? Yes If so when? 08/2014 Who was the Surgeon? Dr. Zhang What is the question: Is it ok for patient to go to the dentist Best number to reach the caller: [phone] documented in this encounter Plan of Treatment Not on file documented as of this encounter Visit Diagnoses Not on filedocumented in this encounter Care Teams Lumber Yard Worker Relationship Specialty Start Date End Date Michelet Cramer MD [address] [address] PCP - General 04/27/10 07/16/15 documented as of this encounter
--- OUTSIDE RECORDS SUMMARY | 2023-12-15 02:23 | XMS_ITS | Encounter Summary ---
Author Organization Formerly [facility] [place] [address] Care Team Providers Care Dye Machine Tender Name Role Phone Virginia Cramer MD Primary Care Provider [phone] Encounter Details Date Type Department Care Team (Late st Contact Info) Description 02/10/2014 1:28 PM EST - 02/10/2014 3:56 PM EST [place] [id number] Jennifer Dick MD [facility] DR ORTHOPAEDIC [place] [address] OSTEOTOMY, TIBIA (WRVU 10.42) Social History Tobacco Use Types Packs/Day Years [...] Sign Reading Time Taken Comments Blood Pressure 143/96 02/10/2014 3:40 PM EST Pulse 100 02/10/2014 3:40 PM EST Temperature 36.8 ??C (98.2 ??F) 02/10/2014 3:35 PM ES T Respiratory Rate 16 02/10/2014 3:40 PM EST Oxygen Saturation 88% 02/10/2014 3:40 PM EST Inhaled Oxygen Concentration - - Weight 93.9 kg (207 lb) 02/10/2014 11:48 AM EST Height 157.5 cm (5' 2.01) 02/10/2014 11:[address] Body Mass Index 37.85 02/10/2014 4:45 PM EST Body Mass Index Percentile 99.72% 02/10/2014 4:4 5 PM EST Growth Chart: [facility] (Girls, 2- 20 Years) [...] to facilitate a bowel movement. Miralax, an ttxs-zsz-xudffcz medication can also be taken to help [...] your follow up appointment. Call your doctor (#[phone]) if you develop: 1. fevers greater than 100.5 2. severe nausea or vomiting 3. increasing pain not controlled by pain medications 4. increasing redness or drainage from incisions 5. Change in sensation FOLLOWUP APPOINTMENTS: 1. You will have followup appointments at [facility] as indicated in Future Appointment and Orders. [...] (AVS) and given to the patient or underwriting service representative. 6) If VNA was ordered, I [...] 9:48 AM EST Office of Care Management(OCM)/Clinical Sock Mender(CRC) Initial Assessment CRC Service:Pediatrics and PICU CRCs: Marivel Vieira RN,BSN pager [phone] and Odalis Patiño pager [phone] Reviewed chart, nursing admission information, and discussed patient during rounds with the Pediatric team to assess continuing care and discharge needs O: Reviewed chart. Introduced self to parents/ caregiver and reviewed CRC role. Admitted with: Right leg tibial osteotomy and knee arthroscopy Home/community services prior to admission: None in chart. PCP: VIRGINIA CRAMER MD [phone] Insurance: [place] [employer] Family supports: Lives with father and stepmother School/development issues: 8th grade Transportation @ d/c: Parents to provide Social Work consult: As needed Anticipated needs for discharge: Patient has crutches and Duval knee brace. PT to see patient this am and assess for any further equipment needs. P: CRC to follow with Team and Family for coordination of disposition if any needs arise. Kayla Alcaraz RN, CRC Office of Care Management Covering for: Marivel Vieira Pager: [phone]. * Cisco Rene - 02/11/2014 6:22 AM [...] control, dispo ?? Activity: TDWB RLE with Duval knee brace locked in extension at all times2 ?? Antibiotics: Cefazolin x 3 doses post-operatively ?? Antiicoagulation: Mechanical, Ibuprofen ?? Drains: None ?? Dressing/Spints: Keep in place until follow-up ?? Sierra: None. Voiding spontaneously ?? Dispo: Home when clears PT and pain controlled ?? Follow up:[address] Dick . CISCO RENE MD Orthopaedic Surgery Resident Pager #[phone] 02/11/2014 * Hema Parker - 02/10/2014 5:14 [...] - 02/09/2014 11:00 AM EST Patient Name: aSmreen Martinez Patient Age: 13 y.o. Birthdate: 2000 Admit date: (Not on file) Attending Physician: Jennifer Dick MD See scanned document for pre-procedural H&P completed on 01/13/14. documented in this encounter Miscellaneous Notes * Discharge Summary - KeithHema Camilo - 02/11/2014 12:59 PM EST Discharge Summary Patient Name: Samreen Martinez Patient Age: 13 y.o. Language: Moldovan Race: White Ethnicity: Not nor Admit date: 02/10/2014 Discharge date and time: 02/11/2014 Attending Physician: Jennifer Dick MD Discharge Physician: Jennifer Dick MD Follow-up Recommendations for Providers: Future Appointments Date Time Provider Department Center 02/20/2014 7:40 AM Jennifer Dick MD [facility] None Inpatient Provider Contact Information: Dr. Dick Trauma: [phone] After hours and weekends, call [facility] C[employer] Holer, , and have Orthopedic resident paged. Discharge [...] Jennifer Dick MD - Primary * Frankie Arvizu, ZOILA * Cisco Rene MD History of Presentation: [...] Rate: [73-120] Blood Pressure BP: 112/53 mmHg @rtqlwcu23@ Respiratory Rate Resp: 20 Resp: [16-22] SpO2 SpO2: 98 % @sxmdizps89@ Art BP BP (Arterial Line): -- Functional [...] to facilitate a bowel movement. Miralax, an ihnj-rdc-vjvsadn medication can also be taken to help [...] your follow up appointment. Call your doctor (#[phone]) if you develop: 1. fevers greater than 100.5 2. severe nausea or vomiting 3. increasing pain not controlled by pain medications 4. increasing redness or drainage from incisions 5. Change in sensation FOLLOWUP APPOINTMENTS: 1. You will have followup appointments at [facility] as indicated in Future Appointment and Orders. Youwill have an xray prior to those appointments so please come to Radiology, desk 3T, 1 hour BEFORE your appointment for those x-rays. Future Appointments Date Time Provider Department Center 02/20/2014 7:40 AM Jennifer Dick MD [facility] None Future Appointments and Orders Future Appointments Provider Department Dept Phone 02/20/2014 7:40 AM Jennifer Dick MD Orthopaedics [phone] Joint Appt Ortho, Questionnaire [facility] [phone] Future Orders Complete By Expires *XR generic [...] sponsor?: Primary Care Provider: VIRGINIA CRAMER MD [phone] Discharge References/Attachments None * Initial Assessments - [...] KNEE, DIAGNOSTIC performed by BRENDAN NAVARRO at [facility] OR ??? Apply long leg cast 08/31/2010 CAST APPLICATION, LONG LEG (THIGH TO TOES) performed by BRENDAN NAVARRO at [facility] OR ??? Knee scope, shave articular cart 08/31/2010 ARTHROSCOPY KNEE CHONDROPLASTY performed by BRENDAN NAVARRO at [facility] OR ??? Knee scope, drill oste diss+int fix 08/31/2010 ARTHROSCOPY KNEE, DRILLING & FIXATION OF OCD performed by BRENDAN NAVARRO at [facility] OR ??? Fix unstable patella, exten realign 12/16/2010 PATELLAR REALIGNMENT performed by BRENDAN NAVARRO at [facility] OR ??? Knee scope, remv loose body 12/16/2010 ARTHROSCOPY KNEE REMOVE LOOSE BODY performed by JENNIFER DICK at [facility] OR ??? Knee scope, abrasn arthroplasty 12/16/2010 ARTHROSCOPY KNEE, MULTIPLE DRILLING, MICROFRACTURE performed by JENNIFER DICK at [facility] OR ??? Apply long leg cast 12/16/2010 CAST APPLICATION, LONG LEG (THIGH TO TOES) performed by JENNIFER DICK at [facility] OR ??? Knee scope, part synovect 04/05/2011 ARTHROSCOPY KNEE SYNOVECTOMY LIMITED performed by JENNIFER DIKC at [facility] OR ??? Drain/inject large joint/bursa 04/05/2011 ARTHROCENTESIS, ASPIRATION OR INJECTION, MAJOR JOINT OR BURSA, KNEE performed by JENNIFER DICK at [facility] OR ??? Knee scope, remv loose body 02/13/2012 ARTHROSCOPY KNEE REMOVE LOOSE BODY performed by JENNIFER DICK at [facility] OR ??? Arthrotomy/explore/treat knee joint 02/13/2012 ARTHROTOMY, KNEE WITH EXPLORATION performed by JENNIFER DICK at [facility] OR ??? Revision of unstable patella 02/13/2012 REPAIR DISLOCATING PATELLA performed by JENNIFER DICK at [facility] OR ??? Knee scope, abrasn arthroplasty 02/13/2012 ARTHROSCOPY KNEE, MULTIPLE DRILLING, MICROFRACTURE performed by JENNIFER DICK at [facility] OR ??? Osteotomy tibia Right 02/10/2014 OSTEOTOMY, TIBIA performed by Jennifer Dick MD at [facility] OR ??? Knee scope, remv loose body Right 02/10/2014 ARTHROSCOPY KNEE REMOVE LOOSE BODY performed by Jennifer Dick MD at [facility] OR ??? Revision of unstable patella Right 02/10/2014 REPAIR DISLOCATING PATELLA performed by Jennifer Dick MD at [facility] OR Social History: lives with father and strep mother in [facility], attends [employer] Elevator at school Will ride bus to/from school so will need to do a few steps One level homes both parents Up on crutches in past, familiar with use Precautions/Special Considerations: TDWB RLE , knee locked in extension in Duval brace Subjective: ???I get light headed with the Tordol?? Objective: Pt seen for evaluation & functional mobility Pain: 5/10 prior to pain medication (tordol), better upon return to room Vital Signs:room air, comfortable Sat down in chair for rest following stairs due to light headedness, resolved after 1 min rest Mental Status:oriented, alert, appropriate Musculoskeletal: ROM: RLE in locked extension Duval brace Strength: WFL throughout, not tested RLE Sensation:denies deficit Bed Mobility:independent Transfers:independent Gait: NWB - TDWB RLE in [place] locked at full extension, crutches Stairs x [...] R LE knee locked in ext in Duval brace Total time spent with patient: 35 minutes Total timed interventions: 10 Minutes TEF LILIANA RIDLEY, PT 02/11/2014 Pager: [phone] Physical Therapy Rehabilitation Department * Plan of [...] Pain/Comfort Assessments Pain Management Interventions multimodal measures utilized;xelkal-qqb-ghnmc dosing utilized;awakened for pain meds per patient [...] Dick MD - 02/10/2014 4:16 PM EST [facility] Operative Note Patient Name: Samreen Martinez : [id number] MR#: [id number] Case Date: 02/10/2014 Surgeon: Surgeon(s) and Role: [...] right thigh. A time-out was performed per [facility] time-out policy. An arthroscopy was first performed [...] using the 0 Vicryl stitches in a mcnnj-ecfw-rmwq type technique. This was done and noted [...] The knee was then placed into a Duval knee brace in full extension, locked. At the end of the case, all counts were correct. No tourniquet was used. Dr. dick was the attending physician who was present for all major portions of this case. * Brief Op Note - Jennifer Dick MD - 02/10/2014 2:46 PM EST Brief Operative Note Patient Name: Samreen Martinez : [id number] MR#: [id number] Case Date: 02/10/2014 Surgeon: Surgeon(s) and Role: [...] Implant Name Type Inv. Item Serial No. Collar Fuser Lot No. LRB No. Used Action SCREW,CRTX,STAP,4.5X42MM ([id number]) - [id number] IMPLANTS 13625 SYNTHES - [id number] Right 1 Implanted SCREW,CRTX,STAP,4.5X48MM ([id number]) - [id number] IMPLANTS 73112 SYNTHES - [id number] Right 1 Implanted PLAN: TDWB IN [place] [...] ORDERABLES documented in this encounter Visit Diagnoses Not [...] Given 02/10/2014 7:59 PM EST 100 mg EPINEPHrine (ADRENALIN) injection ONCE PRN, Starting on Mon02/10/14 at 1320, Until Mon02/10/14 at 1626, Intra-Operative (Intra-Procedure), Routine Given 02/10/2014 1:20 PM EST 0.25 mLs 19- Surgical Site ibuprofen (ADVIL;MOTRIN) tablet 400 mg 400 mg [...] Suspected): Prophylaxis 2057 (Given - Provider: Lesly Quinteros, RN) 0410 (Given - Provider: Lesly Quinteros, YOLY)1304 (Given - Provider: Pam Alexander - Comment: [...] on Mon02/10/14 at 1730, Until Discontinued, Routine 195 (Given - Provider: Heather Bradley, YOLY) 0915 [...] RN)1600 (Canceled Entry - Provider: Heather Bradley, YOLY - Comment: given by other) 0023 (Given - Provider: Lesly Quinteros RN)0901 (Given - Provider: Pam Alexander) ondansetron (ZOFRAN-ODT) [...] 0329 1726 (New Bag - Provider: Heather Bradley, YOLY)2000 (Rate/Dose Verify - Provider: Lesly Quinteros, YOLY)2300 (Rate/Dose Verify - Provider: Lesly Quinteros RN) 0410 (Rate/Dose Change - Provider: Lesly Quinteros, RN) lactated ringers infusion 1,000 mL (CANCELED) 1,000 mL, at 100 mL/hr, Intravenous, CONTINUOUS, Starting on Mon02/10/14 at 1200, Until Mon02/10/14 at 1626, Day of Surgery (Day of Procedure) 1233 (New Bag - Provider: Yamileth Kramer, YOLY)1443 (Stopped - Provider: Cherelle Frey) PRN Medication [...] at 1953, Until Mon02/11/14 at 1658, Nausea 2000 (Given - Provider: Heather Bradley RN) oxyCODONE (ROXICODONE) immediate release tablet 5-15 mg 5-15 mg (0.0532-0.1597 mg/kg/dose), Oral, EVERY 4 HOURS PRN, Starting on Mon02/10/14 at 1557, Until Mon02/11/14 at 1658, Pain, Routine 1607 (Given - Provider: Kasie Sharp RN) 0024 (Given - Provider: Lesly Quinteros RN)0421 (Given - Provider: Lesly Quinteros RN)0944 (Given - Provider: Pam Alexander)1026 (Given - [...] Nausea documented in this encounter Care Teams Dye Machine Tender Relationship Specialty Start Date End Date Virginia Cramer MD [address] [place], [place] [address] [address] PCP - General 04/27/10 07/16/15 documented as of this encounter
--- OUTSIDE RECORDS SUMMARY | 2023-12-15 02:23 | XMS_ITS | Encounter Summary ---
Author Organization [facility] [place] [address] Care Team Providers Care Hotel Assistant Manager Name Role Phone Michelet Cramer MD Primary Care Provider [phone] Reason for Visit * Reason Onset Date Comments Questions 03/03/2014 Encounter Details Date Type Department Care Team (Late st Contact Info) Description 03/03/2014 Telephone [place] [phone] Benito Zhang MD [facility] [place] [address] Questions Social History Tobacco Use Types Packs/Day [...] Telephone Encounter - Chichi Meredith RN - 03/03/2014 11:47 AM EST Phone call to Samreen's mother to inform that will discuss with Dr. Zhang and call with his recommendations. * Telephone Encounter - Minerva Arevalo - 03/03/2014 9:46 AM EST Mom called today to say patinet is having Left knee pain ? Loose candace and would like xrays and have Dr. Zhang look at it when she comes in on 03/06/14 for the post op for the right knee scope. Bilat knee xrays have been pended please cancel wht Generic KNee one that is already ordered. documented in this encounter Plan of Treatment Not on file documented as of this encounter Visit Diagnoses Not on filedocumented in this encounter Care Teams Hotel Assistant Manager Relationship Specialty Start Date End Date Michelet Cramer MD [address] [place] [address] PCP - General 04/27/10 07/16/15 documented as of this encounter
--- OUTSIDE RECORDS SUMMARY | 2023-12-15 02:23 | XMS_ITS | Encounter Summary ---
Author Organization [facility] Address [facility] [place] [address] Care Team Providers Care Tank Stave Assembler Name Role Phone Michelet Cramer MD Primary Care Provider [phone] Reason for Visit * Reason Comments Follow-up R Knee Scope 2 Encounter Details Date Type Department Care Team (Latest Contact Info) Description 12/20/2013 11:05 AM EDT Office [place] [address] Benito Zhang MD [facility] [place] [address] Traumatic patellofemoral subluxation, right, sequela Discharge Disposition: Home Social History Tobacco Use [...] Sign Reading Time Taken Comments Blood Pressure 122/63 12/20/2013 11:37 AM EDT Pulse 85 12/20/2013 11:37 AM EDT Temperature - - Respiratory Rate - - Oxygen Saturation - - Inhaled Oxygen Concentration - - Weight 94.3 kg (208 lb) 12/20/2013 11:37 AM EDT Height 157.5 cm (5' 2) 12/20/2013 11:37 AM EDT Body Mass Index 38.04 12/20/2013 11:37 AM EDT Body Mass Index Percentile 99.76% 12/20/2013 11: 37 AM EDT Growth Chart: [facility] (Girls, 2- 20 Years) documented in this encounter Progress Notes * Osman De La Fuente PA - 12/20/2013 12:03 PM EDT CHIEF COMPLAINT: Right knee pain, status post multiple patellar dislocations and knee arthroscopy on 02/13/2012. HISTORY OF PRESENT ILLNESS: This is a pleasant 13-year-old young lady here today in followup of herright knee. 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 In 2011, she had arthroscopy with loose body removal and soft tissue patellar stabilizing procedure in addition to some microfracture and returned to the office today stating she continues to struggle. She has multiple patellar dislocations each week up to three or three times a week. She feels a loose body movingaround in her knee, which she actually manipulate and push into different positions. At her last visit we decided to pursue an MRI, they are here to review that study. PHYSICAL EXAMINATION: This is an overweight 13-year-old in no acute distress. A and O x3 with pleasant affect. She comes into the office today with mild antalgia. Exam of the right knee shows prior surgical incisions, well healed without signs and symptoms of infection with passive flexion and extension. She does subluxate obviously through her arc. She has mild bogginess, but no significant effusion. No apprehension, but significant increased mobility at the patella. Range of motion is 0 to 130. Stable to varus and valgus stress at 0 to 30 degrees. MRI: Impression 1. 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 2. Slight interval increase in degree of lateral subluxation of the patella with chondral fissuring along the lateral patellar facet. 3. Stable appearance of dysplastic trochlea. 4. Interval development of well corticated ossific densities adjacent to the medial and lateral patellar facet consistent with loose bodies. IMPRESSION: Continued patellar instability. PLAN: I had a lengthy conversation with the patient in the office today as did Dr. Zhang, reviewing her findings. She clearly continues to struggle with instability. We discussed options moving forward, ranging from scoping the knee to evaluate for loose body, to planning for a fulkersons osteotomy, +/- a trochlear groove deepening procedure. They would like to limit it to one surgery. They willthink over when they would like to proceed. They were given ECO card, and will call when they are ready to schedule. documented in this encounter Plan of Treatment Not on file documented as of this encounter Visit Diagnoses Diagnosis Traumatic patellofemoral subluxation, right, sequela documented in this encounter Care Teams Tank Stave Assembler Relationship Specialty Start Date End Date Michelet Cramer MD [address] [place] [address] PCP - General 04/27/10 07/16/15 documented as of this encounter
--- OUTSIDE RECORDS SUMMARY | 2023-12-15 02:23 | XMS_ITS | Encounter Summary ---
Author Organization [facility] Address [facility] [place] [address] Care Team Providers Care Hydraulic Riveter Name Role Phone Michelet Cramer MD Primary Care Provider [phone] Reason for Visit * Reason Comments Right Knee Pain knee pain Encounter Details Date Type Department Care Team (Late st Contact Info) Description 02/06/2014 8:30 AM EST Office [place] [address] Benito Zhang MD [facility] [place] [address] Internal derangement of knee joint, right (Primary Dx) Discharge Disposition: Home Social History [...] Sign Reading Time Taken Comments Blood Pressure 135/68 02/06/2014 8:57 AM EST Pulse 86 02/06/2014 8:57 AM EST Temperature - - Respiratory Rate - - Oxygen Saturation - - Inhaled Oxygen Concentration - - Weight 94 kg (207 lb 4.8 oz) 02/06/2014 8:57 AM EST Height 157.5 cm (5' 2) 02/06/2014 8:57 AM EST Body Mass Index 37.92 02/06/2014 8:57 AM EST Body Mass Index Percentile 99.73% 02/06/2014 8:5 7 AM EST Growth Chart: [facility] (Girls, 2- 20 Years) documented in this encounter Progress Notes * Benito Zhang MD - 02/06/2014 9:42 AM EST Subjective: Patient ID: Samreen Martinez is a 13 y.o. female. HPI Here for discussion about her knee. Here with her family. No questions Allergies Allergen Reactions ??? Sulfa (Sulfonamide Antibiotics) Rash No current outpatient prescriptions on file prior to visit. No current facility-administered medications on file prior to visit. Patient Active Problem List Diagnosis Code ??? Effusion of knee joint, left 719.06 ??? Effusion of knee joint 719.06 ? ? R knee arthroscopy, microfracture & medial patellar realignment procedure 02/12 Vicente 836.59 ??? Knee pain, right 719.46 Review of Systems Objective: Physical Exam Blood pressure 135/68, pulse 86, height 157.5 cm (5' 2), weight 94.031 kg (207 lb 4.8 oz). Right knee Skin intact No effusion FROM Assessment and Plan: Chronic Patella instability RIGHT knee Consent obtained with the patient and her family. We will proceed with: Arthroscopy of the right knee Benito Osteotomy Medial soft tissue reefing Possible microfracture documented in this encounter Plan of Treatment Not on file documented as of this encounter Visit Diagnoses Diagnosis Internal derangement of knee joint, right- Primary documented in this encounter Care Teams Hydraulic Riveter Relationship Specialty Start Date End Date Michelet Cramer MD [address] [place] [address] PCP - General 04/27/10 07/16/15 documented as of this encounter
--- OUTSIDE RECORDS SUMMARY | 2023-12-15 02:23 | XMS_ITS | Encounter Summary ---
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 Ros Bean MD [address] [place] [phone] [facility] [address] [place] [phone] Referral ID Status Reason Start Date Expiration Date V isits Requested Visits Authorized [id number] Closed Consult, Test & [facility] Connection [facility] PCP Updated and/or Approved 07/20/2015 07/19/2016 1 1 Encounter Details Date Type Department Care Team (Latest Contact Info) Description 09/02/2015 2:00 PM EDT Office Visit [place] [address] Hema Thorne MD [facility] [place] [address] AIDAN (juvenile idiopathic arthritis) Social [...] Sign Reading Time Taken Comments Blood Pressure 138/85 09/02/2015 2:07 PM EDT Pulse 92 09/02/2015 2:07 PM EDT Temperature 36.7 ??C (98.1 ??F) 09/02/2015 2:07 PM ED T Respiratory Rate - - Oxygen Saturation - - Inhaled Oxygen Concentration - - Weight 99.8 kg (220 lb) 09/02/2015 2:07 PM EDT Height 160 cm (5' 3) 09/02/2015 2:07 PM EDT Body Mass Index 38.97 09/02/2015 2:07 PM EDT Body Mass Index Percentile 99.56% 09/02/2015 2:0 7 PM EDT Growth Chart: [facility] (Girls, 2- 20 Years) documented in this encounter Progress Notes * Hema Thorne MD - 09/02/2015 2:45 PM EDT This is a new patient consultation seen at the request of Ros Bean on Samreen Michelle. The patient is a 15-year-old female who at age 9 presented with left knee pain to [facility] here, with a negative exam including exam for patellofemoral disease. He thought that it might be inflammatory and ordered an BERNY that was positive at 1-80, and an MRI showed lateral subluxation of the patella with some irregularity in the patellofemoral ligament consistent with subluxation. They prescribed PT which was unsuccessful and inflammatory markers were normal with a CRP of 0.4 and a sed rate of 11. Later on, they did an arthroscopic surgery on her knee to address the patellar issue and a joint fluid cell count with 10,323. After the original procedure, a repeat joint fluid aspiration in the left knee x2 showed a white count of 373 and 760. They treated her with Naprosyn and apparently there was a concern for hematologic toxicity and it was stopped. Dr. Way saw her and thought it was possibly AIDAN, and since then she has been followed by Orthopedics. She saw Hematology because of a large bloody joint fluid but they did not think it was a significant bleeding disorder. Dr. Way saw her again, recommended eye exam which she, apparently, has had locally. Eventually she underwent several surgical procedures, as I understand it, 2 arthroscopic procedures in each knee and 1 open procedure in each knee. She was never treated with a DMARD, and most recently has been seen and followed by PT locally, who noted right wrist problems. She currently has no knee complaints but does complain about pain in her right wrist. Her past medical history is otherwise unremarkable. Her family history is notable for a father with spine arthritis and a strong family history for spondyloarthropathy on the father's side. The grandmother, age 50, has arthritis but it is not clear what type. Her current medications are only control pills and p.r.n. Tylenol. Her allergies are to sulfa. 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 On exam, she is healthy appearing. Her blood pressure is 138/85, her pulse is 92, her temperature is 98, her height is 63 inches, which is in the 37th percentile. Her weight is 220 pounds, which is in the 99th percentile. Her BMI is 39. Her general physical exam is unremarkable except for the obesity. Her joint exam, she is modestly hypermobile. Her right wrist is limited to 60 degrees of flexion and 30 degrees of extension. Her left wrist has 90 degrees of flexion and 90 of extension. Both knees have numerous scars but neither of them are warm and swollen and they both have full range of motion. The remainder of her joint exam is unremarkable. She has no evidence of enthesitis. I ordered laboratory studies that are pending at the time of this dictation. 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 She had probably just left knee and right wrist involvement, but I cannot rule out right knee as well. She is BERNY positive, but there is good chance she has a spondyloarthropathy, so I have ordered an HLA-B27 that is pending at the time of this dictation. I gave her meloxicam because I was worried about the concern for Naprosyn toxicity. I chose to do x-rays of her right wrist but in the future I might do SI joint films. I will followup in 3 months or earlier if need be. 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 I agree with dx of oligo AIDAN but it appears to be in remission now documented in this encounter Miscellaneous Notes * Addendum Note - Becky Ruth - 09/02/2015 3:11 PM EDTAddended by: BECKY RUTH on: 09/02/2015 03:11 PM Modules accepted: Orders documented in this encounter Plan of Treatment Not on file documented as of this encounter Procedures Procedure Name Priority Date/Time Associated Diagnosis Comments LYME IGG & IGM ANTIBODY Routine 09/02/2015 3:18 PM EDT AIDAN (juvenile idiopathic arthritis) HEMOGRAM Routine 09/02/2015 3:18 PM EDT AIDAN (juvenile idiopathic arthritis) DIFFERENTIAL, AUTOMATED Routine 09/02/2015 3:18 PM EDT AIDAN (juvenile idiopathic arthritis) HLA-B27 Routine 09/02/2015 3:18 PM EDT AIDAN (juvenile idiopathic arthritis) SEDIMENTATION RATE Routine 09/02/2015 3: 18 PM EDT AIDAN (juvenile idiopathic arthritis) CBC (WITH DIFF) Routine 09/02/2015 3:18 PM EDT AIDAN (juvenile idiopathic arthritis) CRP, CARDIAC RISK (HS CRP) Routine 09/02/2015 3:18 PM EDT AIDAN (juvenile idiopathic arthritis) COMPREHENSIVE METABOLIC PANEL Routine 09/02/2015 3:18 PM EDT AIDAN (juvenile idiopathic arthritis) documented in this encounter Results * Differential, Automated (09/02/2015 3:18 PM EDT) Neutrophil % 48.0 % [facility] Neutrophil Absolute 4.16 1.50 - 8.00 x10(3)/[facility] Lymph % 41.9 % [facility] Lymphocytes Abs 3.6 1.2 - 5.2 x10(3)/[facility] Monocyte % 8.5 % [facility] Monocyte Abs 0.7 0.2 - 1.0 x10(3)/[facility] Eos % 1.2 % [facility] Eosinophils Abs 0.1 0.0 - 0.5 x10(3)/[facility] Basophil % 0.2 % [facility] Baso Absolute 0.0 0.0 - 0.2 x10(3)/[facility] Immature Gran % 0.20 % [facility] Comment: Immature granulocytes(IG's)percentage and absolute count will include metamyelocytes, myelocytes, and promyelocytes. Blood smears from CBCs yielding IG's will be scanned manually for concordance. If this scan disagrees with the automated IG or if promyelocytes are noted, a manual differential will be performed. Immature Gran Absolute 0.02 0.00 - 0.05 x10(3)/[facility] Blood specimen (specimen) 09/02/2015 3:18 PM EDT 09/02/2015 3:22 PM EDT Narrative Resulting Agency Comment Spec In Lab Hema Thorne MD HEMATOLOGY ORDERABLE S [facility] [place] [address] * (ABNORMAL) Hemogram (09/02/2015 3:18 PM EDT) White Blood Cell 8.7 4.5 - 13.0 x10(3)/mc L [facility] Red Blood Cell 4.77 4.10 - 5.10 x10(6)/mc L [facility] Hemoglobin 12.5 12.0 - 16.0 gm/dL [facility] Hematocrit 37.4 36.0 - 46.0 % [facility] Mean Cell Volume 78.4 76.0 - 98.0 fL [facility] Mean Cell Hemoglobin 26.2 25.0 - 35.0 pg [facility] Mean Cell Hemoglobin Concentration 33.4 32.0 - 36.5 gm/dL [facility] Platelet 338 145 - 370 x10(3)/mc L [facility] RDW Standard Deviation 42.3 35.0 - 46.0 fL [facility] RDW coefficient of variation 14.7(H) 10.9 - 14.4 % [facility] Mean Platelet Volume 10.4 9.0 - 12.0 fL [facility] Blood specimen (specimen) 09/02/2015 3:18 PM EDT 09/02/2015 3:22 PM EDT Narrative Resulting Agency Comment Spec In Lab Hema Thorne MD HEMATOLOGY ORDERABLE S Performing Organization Address [facility] Co de Phone Number [facility] [place] [address] * Lyme IgG & IgM Antibody (09/02/2015 3:18 PM EDT) Lyme Antibody Neg Neg [facility] Blood specimen (specimen) 09/02/2015 3:18 PM EDT 09/03/2015 7:47 AM EDT Narrative Resulting Agency Comment Spec In Lab Hema Thorne MD IMMUNOLOGY ORDERABLE S Performing Organization Address [facility] Phone Number [facility] [place] [address] * (ABNORMAL) Comprehensive metabolic panel (non-fasting) (09/02/2015 3:18 PM EDT) Glucose 98 65 - 199 mg/dL [facility] Comment:Diabetes: >=200 mg/d L plus symptoms Blood Urea Nitrogen 10 10 - 20 mg/dL [facility] Creatinine 0.84(H) 0.20 - 0.70 mg/dL [facility] Comment: Please note that the pediatric reference intervals supplied above were not validated at [facility] [place]. Results from pediatric patients should be interpreted in conjunction to the patient's age, height and muscle mass. Sodium 142 135 - 145 mmol/L [facility] Potassium 4.3 3.5 - 5.0 mmol/L [facility] Comment: Please note: ??Patients with WBC >100,000 may have falsely elevated Potassium levels. ??For accurate Potassium quantification in these patients send serum separator tube (gold top) for subsequent determinations. ??Contact the Clinical Chemistry Laboratory if there are any questions. Chloride 103 98 - 107 mmol/L [facility] Carbon Dioxide 25 22 - 31 mmol/L [facility] Anion Gap 14 5 - 15 mmol/L [facility] Calcium 9.0 8.5 - 10.5 mg/dL [facility] Protein, Total 7.2 6.4 - 8.3 gm/dL [facility] Albumin 4.0 3.2 - 5.2 gm/dL [facility] Aspartate Aminotransferase 18 5 - 30 unit/L [facility] Alanine Aminotransferase 19 0 - 25 unit/L [facility] Alkaline Phosphatase 67(L) 80 - 250 unit/L [facility] Bilirubin, Total <0.2 <=1.0 mg/dL [facility] Bilirubin, Direct <0.1 0.0 - 0.3 mg/dL [facility] Est Glomerular Filtration Rate See note >=60 [facility] Comment: Calculated GFR not appropriate for patients less than 18 years of age. This estimated GFR (eGFR) value was calculated using the MDRD equation which has been validated on patients between the ages of 18 and 70. The MDRD should not be used to assess kidney function in patients < 18 years of age or in patients with extremes of body mass, or in patients with acute kidney failure. This value should be multiplied by 1.2 for patients. For further information please copy and paste the following links into your internet browser. [email or web address] [email or web address] Blood specimen (specimen) 09/02/2015 3:18 PM EDT 09/02/2015 3:22 PM EDT Narrative Resulting Agency Comment Spec In Lab Hema Thorne MD CHEMISTRY ORDERABLES Performing Organization Address [facility] Co de Phone Number [facility] [place] [address] * HLA-B27 (09/02/2015 3:18 PM EDT) HLA-B27 Negative [facility] HLA B27 Interpretation HLA B27 antigen was not detected. Method: Flow Cytometry Reference: 1.Yaa DA, Andres DIALLO, Pollo Feliz, et al: Ankylosing spondylitis and HLA-27. Lancet 1973;1:904-907 2.Chago Perez: HLA-B27 typing by use of flow cytofluorometr y. Clin Chem 1987;33:1619-1 623 [facility] White Blood Cell 8.7 4.5 - 13.0 x10(3)/m cL [facility] Blood specimen (specimen) 09/02/2015 3:18 PM EDT 09/02/2015 3:22 PM EDT Narrative Resulting Agency Comment Spec In Lab Hema Thorne MD HEMATOLOGY ORDERABLE S Performing Organization Address [facility] Co de Phone Number [facility] [place] [address] * High Sensitivity CRP (09/02/2015 3:18 PM EDT) [facility] C-Reactive Protein High Sensitivity 4.7 mg/L [facility] Comment: Interpretations: 1) For accurate cardiac risk assessment, the average of 2 values >2 weeks apart should be obtained (ref 1&2). A value >10 mg/L indicates an inflammatory condition, concentrations >10 mg/L should not be used for cardiac risk assessment. ?<1.0 mg/L: low risk ?1.0 - 3.0 mg/L: moderate risk ?>3.0 mg/L: high risk groups for future cardiovascular events 2) The general reference range of apparently healthy individuals using this test is <5.0 mg/L (derived from the test package insert) References: 1. Oliver TA et. al. ??AHA/CDC Scientific Statement: Markers of Inflammation and Cardiovascular Disease. ??Circulation 2003; 107:499-511 2. Ridker PM. ??Clinical applications of C-reactive protein for cardiovascular disease detection and prevention. ??Circulation 2003; 107:363-369 Blood specimen (specimen) 09/02/2015 3:18 PM EDT 09/02/2015 3:22 PM EDT Narrative Resulting Agency Comment Spec In Lab Hema Thorne MD CHEMISTRY ORDERABLES Performing Organization Address [facility] Co de Phone Number [facility] [place] [address] * (ABNORMAL) Sedimentation rate (09/02/2015 3:18 PM EDT) Sedimentation Rate Automated 22(H) 0 - 20 mm/hr [facility] Blood specimen (specimen) 09/02/2015 3:18 PM EDT 09/02/2015 3:22 PM EDT Narrative Resulting Agency Comment Spec In Lab Hema Thorne MD HEMATOLOGY ORDERABLE S Performing Organization Address [facility] de Phone Number [facility] [place] [address] * XR Bilateral Hands Minimum 3 Views [...] (juvenile idiopathic arthritis) Other specified inflammatory polyarthropathies AIDAN (juvenile idiopathic arthritis) Other specified inflammatory polyarthropathies documented in this encounter Care Teams Game Programmer Relationship Specialty Start Date End Date Ros Bean MD PCP - General Pediatrics 07/17/15 07/27/17 documented as of this encounter
--- OUTSIDE RECORDS SUMMARY | 2023-12-15 02:23 | XMS_ITS | Encounter Summary ---
Author Organization [facility] [place] [address] Care Team Providers Care Knitting Machine Operator Name Role Phone Michelet Cramer MD Primary Care Provider Encounter Details Date Type Department Care Team (Latest Contact Info) Description 11/28/2013 5:51 PM EDT - 11/28/2013 11:59 PM EDT Hospital [place] [address] CLINIC, Benito Lee MD [facility] [place] [address] Knee pain, right Discharge Disposition: Home Social [...] Suspension Once 12/18/20122015 acetaminophen (TYLENOL) 325 mg tablet Take 2 tablets by mouth every 6 hours. 30 tablet 02/14/2012 12/20/2013 docusate sodium (COLACE) 50 mg capsule Take by mouth 2 times daily. As needed for constipation 10 capsule 12/17/2010 12/20/2013 documented as of this encounter Plan of Treatment Not on file documented as of this encounter Procedures Procedure Name Priority Date/Time Associated Diagnosis Comments MRI KNEE WO CONTRAST Routine 11/28/2013 7:12 PM EDT Knee pain, right documented in this encounter Results * MRI knee WO contrast (11/28/2013 7:12 PM EDT) Anatomical Region Laterality Modality Knee Magnetic Resonan ce 11/28/2013 7:12 PM EDT Narrative 11/29/2013 8:31 AM EDT Examination MR Knee Without Mehdi/RIGHT Clinical History multiple patellar dislocations ? loose body Comparison MRI right knee dated 08/17/2011. Technique Multiplanar MRI examination of the right knee was performed without gadolinium contrast. Findings Within the medial compartment, there is mild and minimal subchondral marrow edema along the medial femoral condyle and medial tibial plateau. ??However, the overlying cartilage is preserved. ??The medial meniscus and medial collateral ligament are intact. Within the lateral compartment, there is subchondral marrow edema along the lateral femoral condyle as before with associated full-thickness cartilaginous defects suggestive of osteochondral injury as before. ??The lateral meniscus, iliotibial band, lateral collateral ligament complex and popliteus tendon are intact. 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 ?? There is chondral fissuring within the lateral patellar facet. ??The degree of lateral patellar subluxation has slightly progressed when compared to the prior exam. ??There are also two small ossific well corticated fragments adjacent to the medial and lateral patellar facet that ??likely reflect loose bodies. ?? No significant joint effusion is seen. ??The ACL, PCL, extensor mechanism are intact. ??Muscular bulk is grossly preserved. ??No Dover's cyst is seen. ?? Impression ? 1. 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 ? 2. Slight interval increase in degree of lateral subluxation of the patella with chondral fissuring along the lateral patellar facet. ? 3. Stable appearance of dysplastic trochlea. ? 4. Interval development of well corticated ossific densities adjacent to the medial and lateral patellar facet consistent with loose bodies. Procedure Note Griffin Marr MD - 11/29/2013 Examination MR Knee Without Mehdi/RIGHT Clinical History multiple patellar dislocations ? loose body Comparison MRI right knee dated 08/17/2011. Technique Multiplanar MRI examination of the right knee was performed withoutgadolinium contrast. Findings Within the medial compartment, there is mild and minimal subchondralmarrow edema along the medial femoral condyle and medial tibial plateau.However, the overlying cartilage is preserved. The medial meniscus and medialcollateral ligament are intact. Within the lateral compartment, there is subchondral marrow edema alongthe lateral femoral condyle as before with associated full-thicknesscartilaginous defects suggestive of osteochondral injury as before. The lateralmeniscus, iliotibial band, lateral collateral ligament complex and popliteus tendonare intact. Within the patellofemoral compartment, the trochlea is dysplastic asbefore. There is chondral fissuring within the lateral patellar facet. The degreeof lateral patellar subluxation has slightly progressed when compared to theprior exam. There are also two small ossific well corticated fragments adjacentto the medial and lateral patellar facet that likely reflect loose bodies. No significant joint effusion is seen. The ACL, PCL, extensor mechanismare intact. Muscular bulk is grossly preserved. No Dover's cyst is seen. Impression 1. 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 2. Slight interval increase in degree of lateral subluxation of the patella with chondral fissuring along the lateral patellar facet. 3. Stable appearance of dysplastic trochlea. 4. Interval development of well corticated ossific densities adjacentto the medial and lateral patellar facet consistent with loose bodies. Benito Zhang MD IMG MRI ORDERABLES documented in this encounter Visit Diagnoses Diagnosis Knee pain, right Pain in joint, lower leg documented in this encounter Care Teams Knitting Machine Operator Relationship Specialty Start Date End Date Michelet Cramer MD [address] [place] [address] PCP - General 04/27/10 07/16/15 documented as of this encounter
--- OUTSIDE RECORDS SUMMARY | 2023-12-15 02:23 | XMS_ITS | Encounter Summary ---
Author Organization [facility] Address [facility] [place] [address] Care Team Providers Care Quality Control Assessor Name Role Phone Michelet Cramer MD Primary Care Provider [phone] Encounter Details Date Type Department Care Team (Latest Contact Info) Description 03/06/2014 1:58 PM EST - 03/06/2014 11:59 PM EST Hospital Encounter XRay at [address] [place] [address] Right knee pain Social History Tobacco Use [...] Priority Date/Time Associated Diagnosis Comments XR KNEE AP AND LAT BILAT Routine 03/06/2014 2:09 PM EST Right knee pain documented in this encounter Results * XR knee bilateral [...] Addendum by YOSELIN, UNSIGNED REPORT on 04/03/2014 2:46 PM EST Addendum [...] surgery/osteotomy subcutaneous and intra-articular gas has resolved. [id number] joint effusion present. Alignment anatomic. No sign of osteochondral injury.. Procedure Note Linwood Michaels MD / YOSELIN, UNSIGNED REPORT - 04/03/2014 EXAMINATION: KNEE BILATERAL 1 OR 2 VIEWS/BILAT CLINICAL HISTORY: R KNEE S/P SCOPE 02/10// L KNEE PAIN ? LOOSE BODY TECHNIQUE: 4 views right knee COMPARISON: 02/10/2014 FINDINGS: Patient is status post tibial tubercle surgery/osteotomysubcutaneous and intra-articular gas has resolved. [id number] joint effusionpresent. Alignment anatomic. No sign of osteochondral injury.. IMPRESSION IMPRESSION: Status post tibial tubercle osteotomy. 2 Indwelling screws. Decrease in prepatellar soft tissue swelling and resolution of intra-articular gas.Small to moderate joint effusion present. Benito Zhang MD IMG DX ORDERABLES documented in this encounter Visit Diagnoses Diagnosis Right knee pain Pain in joint, lower leg documented in this encounter Care Teams Quality Control Assessor Relationship Specialty Start Date End Date Michelet Cramer MD [address] [place] [address] PCP - General 04/27/10 07/16/15 documented as of this encounter
--- OUTSIDE RECORDS SUMMARY | 2023-12-15 02:23 | XMS_ITS | Encounter Summary ---
Author Organization [facility] [place] [address] Care Team Providers Care Radio Operator Name Role Phone Michelet Cramer MD Primary Care Provider [phone] Reason for Visit * Reason Onset Date Comments Prior Authorization 07/16/2014 Encounter Details Date Type Department Care Team (Late st Contact Info) Description 07/16/2014 [place] [address] Benito Zhang MD [facility] [address] [place] [address] Prior Authorization Social History Tobacco Use Types Packs/Day Years [...] encounter Miscellaneous Notes * Telephone Encounter - Sun Michele - 07/16/2014 9:41 AM EDT PATIENT MOM CALLED BACK TO GIVE MRI APPT DATE FOR DR. ZHANG. MRI IS SCHEDULED FOR 07/21/14 @ 9:00AM. * Telephone Encounter - Claudette Nguyen - 07/16/2014 9:08 AM EDT Prior auth for MRI to be done at [facility] has been obtained. # [id number]. LM for patient's mom, Winsome letting her know that she needs to call [facility] to schedule Samreen's MRI vickie do not call out to schedule. Also requested that she call us back and let us know when the MRIis scheduled for so that we can make sure the images and report are requested in a timely manner for Dr. Zhang's review. documented in this encounter Plan of Treatment Not on file documented as of this encounter Visit Diagnoses Not on filedocumented in this encounter Care Teams Radio Operator Relationship Specialty Start Date End Date Michelet Cramer MD [address] [place] [address] PCP - General 04/27/10 07/16/15 documented as of this encounter
--- OUTSIDE RECORDS SUMMARY | 2023-12-15 02:23 | XMS_ITS | Encounter Summary ---
Author Organization [facility] Address [facility] [place] [address] Care Team Providers Care Sole Skiver Name Role Phone Michelet Cramer MD Primary Care Provider [phone] Reason for Visit * Reason Onset Date Comments Physical Therapy 12/31/2013 Encounter Details Date Type Department Care Team (Late st Contact Info) Description 12/31/2013 Telephone [place] [phone] Benito Zhang MD [facility] [place] [address] Physical Therapy Social History Tobacco Use Types Packs/Day Years [...] encounter Miscellaneous Notes * Telephone Encounter - Claudette Persaud - 12/31/2013 11:14 AM EDT Received a call from Dagmar at [employer]. They would like instruction on what Samreen can be doing for exercise prior to her surgery on 02/10/14. , ext 3 documented in this encounter Plan of Treatment Not on file documented as of this encounter Visit Diagnoses Not on filedocumented in this encounter Care Teams Sole Skiver Relationship Specialty Start Date End Date Michelet Cramer MD [address] [place] [address] PCP - General 04/27/10 07/16/15 documented as of this encounter
--- OUTSIDE RECORDS SUMMARY | 2023-12-15 02:23 | XMS_ITS | Encounter Summary ---
[place] [address] Care Team Providers Care Research Animal Facility Supervisor Name Role Phone Michelet Cramer MD Primary Care Provider [phone] Reason for Visit * Reason Onset Date Comments Other 04/15/2014 Encounter Details Date Type Department Care Team (Late st Contact Info) Description 04/15/2014 Telephone [place] [phone] Maryellen Watson Other Social History Tobacco Use Types Packs/Day Years [...] * Telephone Encounter - Maryellen Donato - 04/15/2014 8:21 AM EST Mom called requesting Op notes from [phone] be faxed to her per PT doctors request. I have sent these and asked for her to call back if they dont go through so we can resend. Moms name Winsome Chavarria documented in this encounter Plan of Treatment Not on file documented as of this encounter Visit Diagnoses Not on filedocumented in this encounter Care Teams Research Animal Facility Supervisor Relationship Specialty Start Date End Date Michelet Cramer MD [address] [place] [address] [place] [address] PCP - General 04/27/10 07/16/15 documented as of this encounter
--- OUTSIDE RECORDS SUMMARY | 2023-12-15 02:23 | XMS_ITS | Encounter Summary ---
Author Organization [facility] Address [facility] [place] [address] Care Team Providers Care Longshore Equipment Operator Name Role Phone Michelet Cramer MD Primary Care Provider [phone] Reason for Visit * Reason Onset Date Comments Physical Therapy 05/22/2014 Encounter Details Date Type Department Care Team (Late st Contact Info) Description 05/22/2014 [place] [phone] Benito Zhang MD [facility] [place] [address] Physical Therapy Social History Tobacco Use Types [...] Telephone Encounter - Tabby Pacheco RN - 05/22/2014 1:44 PM EST Returned call to pt's mother Winsome. She is concerned that her daughter Samreen will be released to resume gym classes after 4 more PT sessions & she had thought Dr. Zhang did not want her returning to that activity. I called [facility] PT and the last 2-3 session notes are going to be faxed to our office. After review of notes, I will request advice from Dr. Zhang on how he would like to proceed. * Telephone Encounter - Heather Jeffers - 05/22/2014 12:01 PM EST Who is calling: patient/physical therapist Mother Winsome Where do they have their PT? [facility] Phone# Fax # What they need:Patients PT is releasing her , they are stating that [facility], But mother states her and Dr Zhang had a different discussion. Please call [phone] Zmags [phone] cell documented in this encounter Plan of Treatment Not on file documented as of this encounter Visit Diagnoses Not on filedocumented in this encounter Care Teams Longshore Equipment Operator Relationship Specialty Start Date End Date Michelet Cramer MD [address] [place] [address] PCP - General 04/27/10 07/16/15 documented as of this encounter
--- OUTSIDE RECORDS SUMMARY | 2023-12-15 02:23 | XMS_ITS | Encounter Summary ---
Author Organization [facility] Address [facility] [place] [address] Care Team Providers Care Funeral Home Manager Name Role Phone Michelet Cramer MD Primary Care Provider [phone] Reason for Visit * Reason Onset Date Comments Post Procedure Call 10/03/2014 Encounter Details Date Type Department Care Team (Late st Contact Info) Description 10/03/2014 Telephone [place] [address] Benito Zhang MD [facility] DR ORTHOPAED[place] [address] Post Procedure Call Social History Tobacco Use Types Packs/Day Years [...] Encounter - Mary Kate Brown RN - 10/03/2014 11:38 AM EDT I called Mom Winsome. She said Samreen had sent her a picture of the incision via [employer] of the incision. Mom does not know how to e mail a picture to Dr Zhang or myself. There is a reddened area the size is smaller than a dime. There is some slight drainage. I asked if Samreen is icing. She said No. I asked that she have Samreen start icing [place]. Mom and step Mom can not get Samreen here to [facility]. They live in [place], [place]. They will take Samreen to her PCP and have them fax the office visit/report to us. Her next appointment here is 10/30. * Telephone Encounter - Ashli Bruce - 10/03/2014 11:09 AM EDT When was your procedure? 09/08/14 Who was your surgeon? ZHANG What procedure did you have done? LEFT KNEE FULKERSONS What is the question you would like to ask the nurse? Spot on incision looks like it may be infected Best number to reach you #[phone] The nurse continuously monitors all messages and will return your call before the end of the day. The nurse may need to consult the surgeon about your question which may delay the return call by 24hrs. documented in this encounter Plan of Treatment Not on file documented as of this encounter Visit Diagnoses Not on filedocumented in this encounter Care Teams Funeral Home Manager Relationship Specialty Start Date End Date Michelet Cramer MD [address] [place] [address] PCP - General 04/27/10 07/16/15 documented as of this encounter
--- OUTSIDE RECORDS SUMMARY | 2023-12-15 02:23 | XMS_ITS | Encounter Summary ---
Author Organization [facility] Address [facility] [place] [address] Care Team Providers Care Intelligence Senior Sergeant Name Role Phone Michelet Cramer MD Primary Care Provider Encounter Details Date Type Department Care Team (Late st Contact Info) Description 09/08/2014 7:41 AM EDT Anesthesia Event [place] [phone] Kailyn Castle MD [facility] [place] [address] Kevin Jordan MD [facility] [place] [address] Anesthesia Record Procedure Summary Procedure Name Responsible Anesthesiologist Anesthesia Start Time Anesthesia Stop Time OSTEOTOMY, TIBIA (WRVU 10.86) (Left: Leg Lower) Kailyn Castle MD 09/08/14 0741 09/08/14 1020 Events Date Time Event Comment 09/08/2014 0700 0741 Start 0742 AN Verify 0742 An Start Data 0750 IV Start 0753 An Induction 0755 An Intubation 0805 Anesthesia Ready 0826 Procedure Start 0841 Break/Relief In Amara Courtney on, MARKETING SUPPORT ASSISTANT 0856 Break/Relief Out 1008 Extubation/LMA Out Pt SV wit h adequate tidal volumes and RR. SXND LMA removed deep with OPA. Transferred to recovery on FM and FIO2. OPA removed prior to transport. Report to RN. VSS. Pt alert but sleepy. 1010 an stop data 1020 Stop Meds Name Total Midazolam 2 mg fentaNYL 100 mcg IV Lidocaine 60 mg Propofol 300 mg Ondansetron 4 mg Dexamethasone 4 mg ceFAZolin (ANCEF) 2g in dextrose 5% 50 m L 2 g Propofol INF 1,088.83 mg Lactated Ringers 1,000 mL * Agents Name O2 Air N2O Sevoflurane (et) * Blood No blood administrations on file. Lines, Drains, and Airways Type Details Placement Removal Incision 08/31/10; knee; 11/15/21 (LDA cleanup utility RA#[id number]); 1715 (LDA cleanup utility RA#[id number]) 08/31/10 0000 by My Trevino RN 11/15/21 1715 by Jenna Anders Incision 12/16/10; knee (multiple arthroscopic port sites); 11/15/21 (LDA cleanup utility RA#[id number]); 1715 (LDA cleanup utility RA#[id number]) 12/16/10 0000 by My Trevino RN 11/15/21 1715 by Jenna Anders Incision 04/05/11; knee; 11/15/21 (LDA cleanup utility RA#[id number]); 1715 (LDA cleanup utility RA#[id number]) 04/05/11 0000 by Anisa Lyn RN 11/15/21 1715 by Jenna Anders Incision 02/13/12; knee; 11/15/21 (LDA cleanup utility RA#[id number]); 1715 (LDA cleanup utility RA#[id number]) 02/13/12 0000 by Haleigh Devlin RN 11/15/21 1715 by Jenna Anders Incision 02/10/14; knee; 11/15/21 (LDA cleanup utility RA#[id number]); 1715 (LDA cleanup utility RA#[id number]) 02/10/14 0000 by Isi Charlton RN 11/15/21 1715 by Jenna Anders (RETIRED) Peripheral IV Line - Single Lumen 09/08/14; 2; median cubital vein (antecubital fossa), left; 09/09/14; 1103 09/08/14 0000 by Kasie Cummings RN 09/09/14 1103 by Maya Hickey RN Incision 09/08/14; knee; 11/15/21 (LDA cleanup utility RA#[id number]); 1715 (LDA cleanup utility RA#[id number]) 09/08/14 0000 by Halina Gardner RN 11/15/21 1715 by Jenna Anders (RETIRED) Peripheral IV Line - Single Lumen 09/08/14; 0750; 09/09/14; 1103 09/08/14 0750 by Annalise Garcia CRNA 09/09/14 1103 by Maya Hickey RN Supraglottic Mask Ventilation: Ea sy (1); LMA Type: iGel; LMA Size: 3; Inserted by: Radha; Removal Date: 09/08/14; Removal Time: 1008 09/08/14 0755 by Annalise Garcia CRNA 09/08/14 1008 by Annalise Garcia CRNA documented in this encounter Social History Tobacco Use Types Packs/Day Years [...] on file documented as of this encounter OR Notes * Anesthesia Postprocedure Evaluation - Kailyn Castle MD - 09/08/2014 12:17 PM EDT Patient: Samreen Martinez Procedure(s) Performed: Procedure(s): OSTEOTOMY, TIBIA ARTHROSCOPY KNEE, DIAGNOSTIC Actual Anesthetic: general, regional Patient location: PACU; Samreen was evaluated in the Pediatric Same Day recovery area following the procedure, and prior to transfer to the floor. Post-op pain: Adequate analgesia; femoral nerve block in place. Post-op nausea: no nausea or vomiting Last Vitals: Filed Vitals: 09/09/14 0400 BP: 112/61 Pulse: 88 Temp: 36.7 ??C (98.1 ??F) Resp: 16 Post-op cardiovascular and respiratory status: is stable Level of consciousness: awake, alert and oriented Complications: no apparent complications and tolerated the procedure well Fluid Status: normal * Anesthesia Procedure Notes - Ning Alexis MD - 09/08/2014 8:15 AM EDTAssociated Order(s): ANESTHESIA BLOCK Procedure: Anesthesia Block Block: Post-op Pain Control, femoral nerve block Post-op pain management at the request of surgeon. Start time: 09/08/2014 7:55 AM End time: 09/08/2014 8:10 AM This patient was greeted in the block room and the risks and benefits of the anesthetic block were reviewed. The risks of infection, bleeding, local anesthetic toxicity, and nerve injury were discussed. Specifically, the approximate risk of nerve injury (03/2999-03/4999) including neuropathy, loss of sensation and motor function, whether permanent or temporary, was discussed as well as the fact that post-surgical nerve injury can be unrelated to the actual injection and may be related to intra-operative issues such as positioning and tourniquet usage. The sedation plan, its benefits, risks and alternatives were discussed with the patient. The patient has consented to the procedure. The timeout was performed prior to procedure start. Standard ASA monitors were applied. Indication/Prep Position: supine Prep: chlorhexidine, patient draped Laterality: left Ultrasound Guidance: live and in-plane Injection Injection technique:single-shot Needle Length: 10 cm Needle Type: M-[id number]-aemnv Medication injection made incrementally with aspirations. Nerve infiltration solution through a needle Ropivicaine 0.5% 30 mL Resident: MD FALGUNI Fellow: Attending Physician: MD COCO ~~~~~~~~~~~~~~~~~~~~~~~~~~~~~~~~~~~~~~~~~~~~~~~~~~~~~~~~~~~~ * Anesthesia Preprocedure Evaluation - Kailyn Castle MD - 09/08/2014 6:54 AM EDT Pre-Anesthesia Evaluation for: Samreen Martinez a 14 y.o. female. Procedure(s): OSTEOTOMY, TIBIA ARTHROSCOPY KNEE, DRILLING OF OCD & BONE GRAFTING ARTHROSCOPY KNEE, MULTIPLE DRILLING, MICROFRACTURE Patient Active Problem List Diagnosis ??? 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 Knee pain, right ? ? R knee arthroscopy, microfracture & medial patellar realignment procedure 02/12 Vicente ??? Effusion of knee joint ??? Effusion of knee joint, left Effusion tapped on 07/06/2010. Fluid was described as red. Past Medical History Diagnosis Date ??? Fracture of distal femur Per Mom, fx of lower femur and upper (?) tibia, long leg case Past Surgical History Procedure Laterality Date ??? Knee scope, diagnostic 08/31/2010 ARTHROSCOPY KNEE, DIAGNOSTIC performed by BRENDAN NAVARRO at [facility] OR ??? Apply long leg cast 08/31/2010 CAST APPLICATION, LONG LEG (THIGH TO TOES) performed by BRENDAN NAVARRO at [facility] OR ??? Knee scope, shave articular cart 08/31/2010 ARTHROSCOPY KNEE CHONDROPLASTY performed by BRENDAN NAVARRO at [facility] OR ??? Knee scope, drill oste diss+int fix 08/31/2010 ARTHROSCOPY KNEE, DRILLING & FIXATION OF OCD performed by BRENDAN NAVARRO at [facility] OR ??? Fix unstable patella, exten realign 12/16/2010 PATELLAR REALIGNMENT performed by BRENDAN NAVARRO at [facility] OR ??? Knee scope, remv loose body 12/16/2010 ARTHROSCOPY KNEE REMOVE LOOSE BODY performed by JENNIFER ZHANG at [facility] OR ??? Knee scope, abrasn arthroplasty 12/16/2010 ARTHROSCOPY KNEE, MULTIPLE DRILLING, MICROFRACTURE performed by JENNIFER ZHANG at [facility] OR ??? Apply long leg cast 12/16/2010 CAST APPLICATION, LONG LEG (THIGH TO TOES) performed by JENNIFER ZHANG at [facility] OR ??? Knee scope, part synovect 04/05/2011 ARTHROSCOPY KNEE SYNOVECTOMY LIMITED performed by JENNIFER ZHANG at [facility] OR ??? Drain/inject large joint/bursa 04/05/2011 ARTHROCENTESIS, ASPIRATION OR INJECTION, MAJOR JOINT OR BURSA, KNEE performed by JENNIFER ZHANG at [facility] OR ??? Knee scope, remv loose body 02/13/2012 ARTHROSCOPY KNEE REMOVE LOOSE BODY performed by JENNIFER ZHANG at [facility] OR ??? Arthrotomy/explore/treat knee joint 02/13/2012 ARTHROTOMY, KNEE WITH EXPLORATION performed by JENNIFER ZHANG at [facility] OR ??? Revision of unstable patella 02/13/2012 REPAIR DISLOCATING PATELLA performed by JENNIFER ZHANG at [facility] OR ??? Knee scope, abrasn arthroplasty 02/13/2012 ARTHROSCOPY KNEE, MULTIPLE DRILLING, MICROFRACTURE performed by JENNIFER ZHANG at [facility] OR ??? Osteotomy tibia Right 02/10/2014 OSTEOTOMY, TIBIA performed by Jennifer Zhang MD at [facility] OR ??? Knee scope, remv loose body Right 02/10/2014 ARTHROSCOPY KNEE REMOVE LOOSE BODY performed by Jennifer Zhang MD at [facility] OR ??? Revision of unstable patella Right 02/10/2014 REPAIR DISLOCATING PATELLA performed by Jennifer Zhang MD at [facility] OR History Substance Use Topics ??? Smoking status: Passive Smoke Exposure - Never Smoker ??? Smokeless tobacco: Never Used Comment: Adults smoke outside ??? Alcohol Use: No History Drug Use No Allergies Allergen Reactions ??? Sulfa (Sulfonamide Antibiotics) Rash Medications: MAR and/or home medications have been reviewed. Physical Exam: There were no vitals filed for this visit. There is no height or weight on file to calculate BMI. Airway Assessment: Mallampati: I TM distance: >3 FB Neck ROM: full Cardiovascular Assessment: Pulmonary Assessment: Dental Assessment: - normal exam Misc Assessment: IV access: Peripheral line Anesthesia Plan: ASA 2 general and regional, with a(n) intravenous induction Ms. Martinez is a 14 year old male with PMHx of recurrent dislocation of the right patella s/p osteotomy, now with left knee pain and difficulty weight bearing now scheduled for left osteotomy/kneearthroscopy. Allergies reviewed. Pt denies recent URI, denies GERD, and is appropriately NPO. Plan for preoperative Tylenol, GA/LMA, and a post-induction femoral nerve block for post-operative analgesia. Risks were discussed at length with pt and her parents, and all questions and concerns were addressed. Consent was obtained, and the appropriate paperwork was placed in the patient's chart. Region - Other Informed Consent: Anesthetic plan and risks discussed with patient, father and mother. Plan discussed with MARKETING SUPPORT ASSISTANT. [facility]. Assessment: documented in this encounter Plan of Treatment Not on file documented as of this encounter Procedures Procedure Name Priority Date/Time Associated Diagnosis Comments ANESTHESIA BLOCK Routine 09/08/2014 8:16 AM EDT documented in this encounter Results * Anesthesia Block (09/08/2014 8:16 AM EDT) Narrative Ning Alexis MD - 09/08/2014 8:16 AM EDT Ning Alexis MD ? 09/08/2014 ??8:16 AM Procedure: ??Anesthesia Block Block: Post-op Pain Control, femoral nerve block Post-op pain management at the request of surgeon. Start time: 09/08/2014 7:55 AM End time: 09/08/2014 8:10 AM This patient was greeted in the block room and the risks and benefits of the anesthetic block were reviewed. ??The risks of infection, bleeding, local anesthetic toxicity, and nerve injury were discussed. ??Specifically, the approximate risk of nerve injury (03/2999-03/4999) including neuropathy, loss of sensation and motor function, whether permanent or temporary, was discussed as well as the fact that post-surgical nerve injury can be unrelated to the actual injection and may be related to intra-operative issues such as positioning and tourniquet usage. ?? The sedation plan, its benefits, risks and alternatives were discussed with the patient. ??The patient has consented to the procedure. ??The timeout was performed prior to procedure start. ?? Standard ASA monitors were applied. Indication/Prep Position: supine Prep: chlorhexidine, patient draped Laterality: left Ultrasound Guidance: live and in-plane Injection Injection technique:single-shot Needle Length: 10 cm Needle Type: A-uaxmm-drrzq Medication injection made incrementally with aspirations. Nerve infiltration solution through a needle Ropivicaine 0.5% 30 mL Resident: MD FALGUNI Fellow: Attending Physician: MD COCO ~~~~~~~~~~~~~~~~~~~~~~~~~~~~~~~~~~~~~~~~~~~~~~~~~~~~~~~~~~~~ Jennifer Zhang MD RN [facility] documented in this encounter Visit Diagnoses Not on filedocumented in this encounter Administered Medications Inactive Administered Medications - up to 3 most recent administrations Medication Order MAR Action Action Date Dose Rate Site ceFAZolin (ANCEF) 2g in dextrose 5% 50 mL 2 g, Intravenous, EVERY 3 HOURS, 1 dose, First dose on Mon09/08/14 at 0600, Administer over 30 Minutes, Redose after 3 hours., Intra-Operative (Intra-Procedure), Indication for (Active or Suspected): Prophylaxis Given 09/08/2014 8:00 AM EDT 2 g dexamethasone (DECADRON) injection PRN, Starting on Mon09/08/14 at 0800, Until Mon09/08/14 at 1014, Anesthesia Intra-op, Routine Given 09/08/2014 8:00 AM EDT 4 mg fentaNYL 50 mcg/mL multi-dose injection Administer over 10 Minutes, PRN, Starting on Mon09/08/14 at 0804, Until Mon09/08/14 at 1014, Pain, Anesthesia Intra-op, Routine Given 09/08/2014 9:08 AM EDT 25 mcg Given 09/08/2014 8:48 AM EDT 25 mcg Given 09/08/2014 8:23 AM EDT 25 mcg lactated ringers infusion CONTINUOUS PRN, Starting on Mon09/08/14 at 0750, Until Mon09/08/14 at 1014, Anesthesia Intra-op New Bag 09/08/2014 10:04 AM EDT New Bag 09/08/2014 7:50 AM EDT lidocaine (PF) (XYLOCAINE) 100 mg/5 mL (2 %) injection PRN, Starting on Mon09/08/14 at 0753, Until Mon09/08/14 at 1014, Anesthesia Intra-op, Routine Given 09/08/2014 7:53 AM EDT 60 mg midazolam (PF) (VERSED) 1 mg/mL multi-dose injection PRN, Starting on Mon09/08/14 at 0753, Until Mon09/08/14 at 1014, Sleep, Anesthesia Intra-op, Routine Given 09/08/2014 7:53 AM EDT 2 mg ondansetron (ZOFRAN) injection PRN, Starting on Mon09/08/14 at 0935, Until Mon09/08/14 at 1014, Nausea, Anesthesia Intra-op, Routine Given 09/08/2014 9:35 AM EDT 4 mg propofol (DIPRIVAN) 10 mg/mL bolus injection (Anesthesia) PRN, Starting on Mon09/08/14 at 0753, Until Mon09/08/14 at 1014, Anesthesia Intra-op Given 09/08/2014 8:05 AM EDT 50 mg Given 09/08/2014 8:00 AM EDT 50 mg Given 09/08/2014 7:53 AM EDT 200 mg propofol (DIPRIVAN) infusion CONTINUOUS PRN, Starting on Mon09/08/14 at 0755, Until Mon09/08/14 at 1014, Anesthesia Intra-op, Routine Rate/Dose Change 09/08/2014 9:37 AM EDT 150 mcg/kg/min 87.3 mL/hr Rate/Dose Change 09/08/2014 8:26 AM EDT 75 mcg/kg/min 43.7 mL/hr New Bag 09/08/2014 7:55 AM EDT 50 mcg/kg/min 29.1 mL/hr documented in this encounter Care Teams Intelligence Senior Sergeant Relationship Specialty Start Date End Date Michelet Cramer MD [address] [place] [address] PCP - General 04/27/10 07/16/15 documented as of this encounter
--- OUTSIDE RECORDS SUMMARY | 2023-12-15 02:23 | XMS_ITS | Encounter Summary ---
Author Organization Count Includes [facility] Address [facility] [place] [address] Care Team Providers Care Cleaning Team Member Name Role Phone Michelet Cramer MD Primary Care Provider [phone] Encounter Details Date Type Department Care Team (Late st Contact Info) Description 01/24/2014 [place] [address] Benito Zhang MD [facility] [place] [address] Social History Tobacco Use Types Packs/Day Years [...] encounter Miscellaneous Notes * Telephone Encounter - Malia Cassidy - 01/27/2014 10:03 AM EST Patients mom, Winsome, returned my call and I have rescheduled Samreen's pre-op appointment with Dr. Zhang to 9 am on 02/06/14. Thank you. * Telephone Encounter - Malia Cassidy - 01/24/2014 11:24 AM EST I called and left a message for patients parents to call me back directly to reschedule Samreen's pre-op appointment on 02/06. I need to reschedule her pre-op appointment with Dr. Zhang on 02/06 to the morning due to Dr. Zhang not being available in the afternoon documented in this encounter Plan of Treatment Not on file documented as of this encounter Visit Diagnoses Not on filedocumented in this encounter Care Teams Cleaning Team Member Relationship Specialty Start Date End Date Michelet Cramer MD [address] [place] [address] PCP - General 04/27/10 07/16/15 documented as of this encounter
--- OUTSIDE RECORDS SUMMARY | 2023-12-15 02:23 | XMS_ITS | Encounter Summary ---
Author Organization [facility] Address [facility] [place] [address] Care Team Providers Care Psychic Reader Name Role Phone Michelet Cramer MD Primary Care Provider Reason for Visit * Reason Onset Date Comments Knee Pain 06/23/2014 Encounter Details Date Type Department Care Team (Late st Contact Info) Description 06/23/2014 Telephone [place] [phone] Benito Zhang MD [facility] [place] [address] Knee Pain Social History Tobacco Use Types Packs/Day Years [...] Telephone Encounter - Chichi Meredith RN - 06/23/2014 3:49 PM EDT Case Date: 02/10/2014 Surgeon: Surgeon(s) and Role: * Benito Zhang MD - Primary * Frankie Arivzu PA * Kevin Rene MD Preoperative diagnosis: recurant patella dislocation RIGHT Postoperative diagnosis: recurant patella dislocation rt Procedure(s): OSTEOTOMY, TIBIA ALAINA ARTHROSCOPY KNEE REMOVE LOOSE BODY REPAIR DISLOCATING PATELLA Case Date: 04/05/2011 Surgeon(s) and Role: Surgeon(s) and Role: * BENITO ZHANG MD - Primary * KANE VAZQUEZ MD - Resident-Surgeon Chief Preoperative diagnosis: Inflammatory synovitis with cartilage loss Postoperative diagnosis: Inflammatory synovitis with cartilage loss Procedures: Left ARTHROSCOPY KNEE SYNOVECTOMY LIMITED ARTHROCENTESIS, ASPIRATION OR INJECTION, MAJOR JOINT OR BURSA, KNEE Anesthesia: General Estimated Blood Loss: 5 cc Specimen: 1. Multiple synovial biopsies 2. Knee fluid was sent for cell count Drains: None Complications: None Findings: Fibrocartilage on the lateral femoral condyle lesion measured 1.6 cm X 2.0 cm. No loose bodies evident. Grade II/III. Medial compartment chondral surface NWB divot. Meniscii intact. Moderate synovitis Caller: Jazlyn Mother Learning Needs Assessment Reviewed: Yes Subjective Patient presents with: Knee Pain Objective/Assessment Phone call to Samreen's mother to discuss LEFT knee pain. Mother reports that Samreen has been havingdifficulty with her LEFT knee and that this last Monday (06/18/14) Samreen's knee locked up on her. Samreen is reporting that her knee doesn't feel right and that it is causing her pain. Mother wonders about obtaining an x-ray prior to upcoming office appointment 07/15/14. Plan: Discuss that x- ray of left knee was last done 05/13/14 and that x-ray will not show problems with cartilage inside the knee. Would prefer to avoid further exposure to radiation unless Dr. Zhang feels this is necessary. Dr. Zhang may order further images or prefer MRI as diagnostic tool if he suspects problems following physical exam. Mother is comfortable with this and agrees that with the opposite knee MRI was a useful study. * Telephone Encounter - Heather Jeffers - 06/23/2014 11:52 AM EDT Patient is coming in to see Dr Zhang for a follow up and is now having pain in her opposite knee and mother of Child thinks she should get a Left knee xray. Please call documented in this encounter Plan of Treatment Not on file documented as of this encounter Visit Diagnoses Not on filedocumented in this encounter Care Teams Psychic Reader Relationship Specialty Start Date End Date Michelet Cramer MD [address] [facility] [place] [address] PCP - General 04/27/10 07/16/15 documented as of this encounter
--- OUTSIDE RECORDS SUMMARY | 2023-12-15 02:23 | XMS_ITS | Encounter Summary ---
Author Organization [facility] Address [facility] [place] [address] Care Team Providers Care Tool Filer Hand Name Role Phone Michelet Cramer MD Primary Care Provider [phone] Encounter Details Date Type Department Care Team (Latest Contact Info) Description 04/10/2014 1:05 PM EST - 04/10/2014 11:59 PM EST Hospital Encounter XRay at [address] [place] [address] Traumatic patellofemoral subluxation, right, sequela Social History Tobacco Use Types Packs/Day Years [...] KNEE DIAGNOSTIC 1 OR 2 VIEW Routine 04/10/2014 1:20 PM EST Traumatic patellofemoral subluxation, right, sequela documented in this encounter Results * XR knee diagnostic 1 or 2 view (04/10/2014 1:20 PM EST) Anatomical Region Laterality Modality Knee N/A Radiographic Savana ging 04/10/2014 1:20 PM EST Impressions 04/10/2014 1:29 PM EST IMPRESSION: Status post right tibial tubercle osteotomy, well healed osteotomy site. 2 cancellous screws are indwelling. Narrative 04/10/2014 1:29 PM EST EXAMINATION: KNEE 1 OR 2 VIEWS/RIGHT CLINICAL HISTORY: s/p shira osteotomy of the right knee TECHNIQUE: AP and lateral views of the right knee and AP view of left knee COMPARISON: 03/06/2014 FINDINGS: The patient is status post an osteotomy of the right tibial tubercle. 2 Indwelling cancellous screws present, the osteotomy site appears well-healed. No sign of osteoarthritis or joint effusion. Procedure Note Linwood Michaels MD - 04/10/2014 EXAMINATION: KNEE 1 OR 2 VIEWS/RIGHT CLINICAL HISTORY: s/p shira osteotomy of the right knee TECHNIQUE: AP and lateral views of the right knee and AP view of leftknee COMPARISON: 03/06/2014 FINDINGS: The patient is status post an osteotomy of the right tibialtubercle. 2 Indwelling cancellous screws present, the osteotomy site appearswell-healed. No sign of osteoarthritis or joint effusion. IMPRESSION IMPRESSION: Status post right tibial tubercle osteotomy, well healed osteotomy site.2 cancellous screws are indwelling. Benito Zhang MD IMG DX ORDERABLES documented in this encounter Visit Diagnoses Diagnosis Traumatic patellofemoral subluxation, right, sequela documented in this encounter Care Teams Tool Filer Hand Relationship Specialty Start Date End Date Michelet Cramer MD [address] [place] [address] PCP - General 04/27/10 07/16/15 documented as of this encounter
--- OUTSIDE RECORDS SUMMARY | 2023-12-15 02:23 | XMS_ITS | Encounter Summary ---
Author Organization [facility] Address [facility] [place] [address] Care Team Providers Care Stores Assistant Name Role Phone Michelet Cramer MD Primary Care Provider [phone] Encounter Details Date Type Department Care Team (Late st Contact Info) Description 09/16/2014 Orders Only [place] [address] Benito Zhang MD [facility] [place] [address] S/P left knee arthroscopy Social History Tobacco [...] as of this encounter Visit Diagnoses Diagnosis S/P left knee arthroscopy Other postprocedural status documented in this encounter Care Teams Stores Assistant Relationship Specialty Start Date End Date Michelet Cramer MD [address] [place] [place] [address] PCP - General 04/27/10 07/16/15 documented as of this encounter
--- OUTSIDE RECORDS SUMMARY | 2023-12-15 02:23 | XMS_ITS | Encounter Summary ---
Author Organization [facility] Address [facility] [place] [address] Care Team Providers Care Geospatial Engineer Name Role Phone Michelet Cramer MD Primary Care Provider [phone] Encounter Details Date Type Department Care Team (Late st Contact Info) Description 02/10/2014 12:40 PM EST Anesthesia Event [place] [phone] Dima Cooper MD [facility] DR [place] [address] Karen Goss MD [facility] DR DE[place] [address] Anesthesia Record Procedure Summary Procedure Name Responsible Anesthesiologist Anesthesia Start Time Anesthesia Stop Time OSTEOTOMY, TIBIA (WRVU 10.86) (Right: Leg Lower) Dima Cooper MD 02/10/14 1240 02/10/14 1529 Events Date Time Event Comment 02/10/2014 1227 1240 Start 1245 AN Verify 1245 An Start Data 1249 An Induction 1252 An Intubation 1301 Nerve Block Femoral nerve b lock performed by block team under GA. 1301 Anesthesia Ready 1319 Break/Relief In MD Carlos PATTERSON RA lunch break 1322 Procedure Start 1346 Break/Relief Out 1505 Extubation/LMA Out 1510 Procedure Stop 1512 an stop data 1529 Stop Meds Name Total Midazolam 2 mg fentaNYL 250 mcg IV Lidocaine 100 mg Propofol 200 mg ePHEDrine 5 mg Ondansetron 4 mg Dexamethasone 4 mg Ketamine INF 16.92 mg Ketamine 10 mg/mL 13 mg ceFAZolin (ANCEF) 2g in dextrose 5% 50 m L 2 g lactated ringers infusion 1,000 mL 600 m L * Agents Name O2 Air N2O Sevoflurane (et) Isoflurane (et) * Blood No blood administrations on [...] (RETIRED) Peripheral IV Line - Single Lumen 02/10/14; 1232; median cubital vein left (antecubital fossa); [id number] catheter system; 20 gauge; Roberta Schafer RN; intradermal injection, distraction, tolerated well, appears comfortable, age-appropriate response; 0; no longer indicated; 02/11/14 02/10/14 1232 by Yamileth Kramer RN 02/11/14 0000 by Ramandeep Swartz APRN Supraglottic Mask Ventilation: Ea sy (1); LMA Type: iGel; LMA Size: 3; Inserted by: Tk; Removal Date: 02/10/14; Removal Time: 1505 02/10/14 1252 by Cherelle Leal MD 02/10/14 1505 by Cherelle Leal MD documented in this encounter Social History Tobacco [...] OR Notes * Anesthesia Postprocedure Evaluation - Dima Cooper MD - 02/10/2014 4:12 PM EST Patient: Samreen Martinez Procedure(s) Performed: Procedure(s): OSTEOTOMY, TIBIA ARTHROSCOPY KNEE REMOVE LOOSE BODY REPAIR DISLOCATING PATELLA Actual Anesthetic: general, regional Patient location: PACU Post-op pain: Adequate analgesia Post-op nausea: no nausea or vomiting Last Vitals: Filed Vitals: 02/10/14 1559 BP: Pulse: 96 Temp: Resp: 16 Post-op cardiovascular and respiratory status: is stable Level of consciousness: awake, alert and oriented Complications: no apparent complications and tolerated the procedure well Fluid Status: normal * Anesthesia Postprocedure Evaluation - Cherelle Frey - 02/10/2014 3:51 PM EST Patient: Samreen Martinez Procedure(s) Performed: Procedure(s): OSTEOTOMY, TIBIA ARTHROSCOPY KNEE REMOVE LOOSE BODY REPAIR DISLOCATING PATELLA Actual Anesthetic: general, regional Patient location: PACU Post-op pain: Adequate analgesia Post-op nausea: no nausea or vomiting Last Vitals: Filed Vitals: 02/10/14 1540 BP: 143/96 Pulse: 100 Temp: Resp: 16 Post-op cardiovascular and respiratory status: is stable Level of consciousness: awake, alert and oriented Complications: no apparent complications and tolerated the procedure well Fluid Status: normal * Anesthesia Procedure Notes - Karen Goss MD - 02/10/2014 2:18 PM EST Associated Order(s): ANESTHESIA BLOCK Procedure: Anesthesia Block Block: Post-op Pain Control, femoral nerve block Post-op pain management at the request of surgeon. Start time: 02/10/2014 12:50 PM End time: 02/10/2014 1:00 PM This patient was greeted in the block [...] such as positioning and tourniquet usage. The anesthetic consent was obtained. The timeout was performed prior to procedure start. Standard ASA monitors were applied. Indication/Prep Position: supine Prep: chlorhexidine and patient draped Laterality: right Ultrasound Guidance: live and in-plane Injection Needle Length: 5 cm Gauge: 22 Needle Type: [id number] Medication injection made incrementally with aspirations. Nerve infiltration solution through a needle Ropivicaine 0.5% and Other, see note 20 mL Additional Notes Area prepped and draped in usual sterile fashion. Prep allowed to dry completely. Total of 20 ml of0.5% Ropivacaine with 2 mg dexamethasone injected with negative aspirations throughout. Patient wasunder general anesthesia during the nerve block and tolerated the procedure well. Hemodynamically stable throughout. There were no complications. Resident: Fellow: Ana Paula ROSE Attending Physician: Vickey ROSE ~~~~~~~~~~~~~~~~~~~~~~~~~~~~~~~~~~~~~~~~~~~~~~~~~~~~~~~~~~~~ * Anesthesia Preprocedure Evaluation - Dima Cooper MD - 02/07/2014 9:51 PM EST Pre-Anesthesia Evaluation for: Samreen Martinez a 13 y.o. female. Procedure(s): OSTEOTOMY, TIBIA ARTHROSCOPY KNEE, DRILLING OF OCD & BONE GRAFTING ARTHROSCOPY KNEE, MULTIPLE DRILLING, MICROFRACTURE Patient Active Problem List Diagnosis ??? Knee pain, right ? ? [...] KNEE, DIAGNOSTIC performed by BRENDAN NAVARRO at [facility] OR ??? Apply long leg cast 08/31/2010 CAST APPLICATION, LONG LEG (THIGH TO TOES) performed by BRENDAN NAVARRO at [facility] OR ??? Knee scope, shave articular cart 08/31/2010 ARTHROSCOPY KNEE CHONDROPLASTY performed by BRENDAN NAVARRO at [facility] OR ??? Knee scope, drill oste diss+int fix 08/31/2010 ARTHROSCOPY KNEE, DRILLING & FIXATION OF OCD performed by BRENDAN NAVARRO at [facility] OR ??? Fix unstable patella, exten realign 12/16/2010 PATELLAR REALIGNMENT performed by BRENDAN NAVARRO at [facility] OR ??? Knee scope, remv loose body 12/16/2010 ARTHROSCOPY KNEE REMOVE LOOSE BODY performed by JENNIFER GUNTER at [facility] OR ??? Knee scope, abrasn arthroplasty 12/16/2010 ARTHROSCOPY KNEE, MULTIPLE DRILLING, MICROFRACTURE performed by JENNIFER GUNTER at [facility] OR ??? Apply long leg cast 12/16/2010 CAST APPLICATION, LONG LEG (THIGH TO TOES) performed by JENNIFER GUNTER at [facility] OR ??? Knee scope, part synovect 04/05/2011 ARTHROSCOPY KNEE SYNOVECTOMY LIMITED performed by JENNIFER GUNTER at [facility] MAIN OR ??? Drain/inject large joint/bursa 04/05/2011 ARTHROCENTESIS, ASPIRATION OR INJECTION, MAJOR JOINT OR BURSA, KNEE performed by JENNIFER GUNTER at [facility] MAIN OR ??? Knee scope, remv loose body 02/13/2012 ARTHROSCOPY KNEE REMOVE LOOSE BODY performed by JENNIFER GUNTER at [facility] MAIN OR ??? Arthrotomy/explore/treat knee joint 02/13/2012 ARTHROTOMY, KNEE WITH EXPLORATION performed by JENNIFER GUNTER at [facility] MAIN OR ??? Revision of unstable patella 02/13/2012 REPAIR DISLOCATING PATELLA performed by JENNIFER GUNTER at [facility] MAIN OR ??? Knee scope, abrasn arthroplasty 02/13/2012 ARTHROSCOPY KNEE, MULTIPLE DRILLING, MICROFRACTURE performed by JENNIFER GUNTER at [facility] MA[facility] OR History Substance Use Topics ??? 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 Otherwise healthy. Allergic: Sulfa. No hx anesthesia problem. IV inductions. Plan, Gen LMA and femoral nerve block under general anesthesia for post op analgesia. Region - Other Informed Consent: Anesthetic plan and risks discussed with patient and mother. Use of blood products discussed with patient and mother whom consented to blood products. Plan [facility]: documented in this encounter Plan of Treatment Not on file documented as of this encounter Procedures Procedure Name Priority Date/Time Associated Diagnosis Comments ANESTHESIA BLOCK Routine 02/10/2014 2:20 PM EST documented in this encounter Results * Anesthesia Block (02/10/2014 2:20 PM EST) Narrative Karen Goss MD - 02/10/2014 2:20 PM EST Karen Goss MD ? 02/10/2014 ??2:20 PM Procedure: ??Anesthesia Block Block: Post-op Pain Control, femoral nerve block Post-op pain management at the request of surgeon. Start time: 02/10/2014 12:50 PM End time: 02/10/2014 1:00 PM This patient was greeted in the block [...] as positioning and tourniquet usage. ?? The anesthetic consent was obtained. The timeout was performed prior to procedure start. ??Standard ASA monitors were applied. Indication/Prep Position: supine Prep: chlorhexidine and patient draped Laterality: right Ultrasound Guidance: live and in-plane Injection Needle Length: 5 cm Gauge: 22 Needle Type: [id number] Medication injection made incrementally with aspirations. Nerve infiltration solution through a needle Ropivicaine 0.5% and Other, see note 20 mL Additional Notes Area prepped and draped in usual sterile fashion. Prep allowed to dry completely. Total of 20 ml of 0.5% Ropivacaine with 2 mg dexamethasone injected with negative aspirations throughout. Patient was under general anesthesia during the nerve block and tolerated the procedure well. Hemodynamically stable throughout. There were no complications. Resident: Fellow: Ana Paula ROSE Attending Physician: ??Vickey ROSE ~~~~~~~~~~~~~~~~~~~~~~~~~~~~~~~~~~~~~~~~~~~~~~~~~~~~~~~~~~~~ Karen Goss MD [employer]URNITURE [employer]PH[employer] [facility] documented in this encounter Visit Diagnoses Not on filedocumented in this encounter Administered Medications Inactive Administered Medications - up to 3 most recent administrations Medication Order MAR Action Action Date Dose Rate Site ceFAZolin (ANCEF) 2g in dextrose 5% 50 mL 2 g (0.0212 g/kg), Intravenous, EVERY 3 HOURS, 1 dose, First dose on Mon02/10/14 at 1200, Redose after 3 hours., Intra-Operative (Intra-Procedure), Indication for (Active or Suspected): Prophylaxis Given 02/10/2014 12:57 PM EST 2 g dexamethasone (DECADRON) injection PRN, Starting on Mon02/10/14 at 1254, Until Mon02/10/14 at 1529, Anesthesia Intra-op, Routine Given 02/10/2014 12:54 PM EST 4 mg ePHEDrine Sulfate in sodium chloride 0.9% (PF) 50 mg/10 mL (5 mg/mL) injection Syrg PRN, Starting on Mon02/10/14 at 1316, Until Mon02/10/14 at 1529, Anesthesia Intra-op Given 02/10/2014 1:16 PM EST 5 mg fentaNYL 50mcg/mL injection PRN, Starting on Mon02/10/14 at 1307, Until Mon02/10/14 at 1529, Pain, Anesthesia Intra-op, Routine Given 02/10/2014 3:25 PM EST 25 mcg Given 02/10/2014 3:24 PM EST 25 mcg Given 02/10/2014 3:22 PM EST 25 mcg ketamine (KETALAR) 10 mg/mL bolus injection (Anesthesia) PRN, Starting on Mon02/10/14 at 1249, Until Mon02/10/14 at 1529, Anesthesia Intra-op Given 02/10/2014 12:49 PM EST 13 mg ketamine (KETALAR) injection CONTINUOUS PRN, Starting on Mon02/10/14 at 1255, Until Mon02/10/14 at 1529, Anesthesia Intra-op, Routine New Bag 02/10/2014 12:55 PM EST 0.106 mg/kg/hr 1 mL/hr New Bag 02/10/2014 12:52 PM EST 0.106 mg/kg/hr 1 mL/hr lidocaine (PF) (XYLOCAINE) 100 mg/5 mL (2 %) injection PRN, Starting on Mon02/10/14 at 1245, Until Mon02/10/14 at 1529, Anesthesia Intra-op, Routine Given 02/10/2014 12:45 PM EST 100 mg midazolam (PF) (VERSED) 1 mg/mL injection PRN, Starting on Mon02/10/14 at 1240, Until Mon02/10/14 at 1529, Sleep, Anesthesia Intra-op, Routine Given 02/10/2014 12:40 PM EST 2 mg ondansetron (ZOFRAN) injection PRN, Starting on Mon02/10/14 at 1432, Until Mon02/10/14 at 1529, Nausea, Anesthesia Intra-op, Routine Given 02/10/2014 2:32 PM EST 4 mg propofol (DIPRIVAN) 10 mg/mL bolus injection (Anesthesia) PRN, Starting on Mon02/10/14 at 1245, Until Mon02/10/14 at 1529, Anesthesia Intra-op Given 02/10/2014 12:49 PM EST 1 00 mg Given 02/10/2014 12:47 PM EST 50 mg Given 02/10/2014 12:45 PM EST 50 mg documented in this encounter Care Teams Geospatial Engineer Relationship Specialty Start Date End Date Michelet Cramer MD [address] [place] [address] PCP - General 04/27/10 07/16/15 documented as of this encounter
--- OUTSIDE RECORDS SUMMARY | 2023-12-15 02:23 | XMS_ITS | Encounter Summary ---
Author Organization [facility] [place] [address] Care Team Providers Care Lasting Room Machine Operator Name Role Phone Michelet Cramer MD Primary Care Provider [phone] Reason for Visit * Reason Onset Date Comments Follow-up 06/03/2014 Encounter Details Date Type Department Care Team (Late st Contact Info) Description 06/03/2014 [place] [id number] Chichi Meredith RN Follow-up Social History Tobacco Use Types Packs/Day Years [...] Telephone Encounter - Chichi Meredith RN - 06/03/2014 12:31 PM EDT Case Date: 02/10/2014 Surgeon: Surgeon(s) and Role: * Benito Zhang MD - Primary * Frankie Arvizu PA * Kevin Rene MD Preoperative diagnosis: recurant patella dislocation rt Postoperative diagnosis: recurant patella dislocation rt Procedure(s): OSTEOTOMY, TIBIA ALAINA ARTHROSCOPY KNEE REMOVE LOOSE BODY REPAIR DISLOCATING PATELLA Phone call to home phone to discuss with Samreen and her mother feedback from Dr. Zhang re physicalactivity. Dr. Zhang feels that Samreen can resume gym classes at school and can consider participation in low impact sports. He does not recommend participating in Lacrosse until she is post procedure by at least one year. No answer at home phone at this time - no ability to leave a message as the messaging system has not been set up yet. documented in this encounter Plan of Treatment Not on file documented as of this encounter Visit Diagnoses Not on filedocumented in this encounter Care Teams Lasting Room Machine Operator Relationship Specialty Start Date End Date Michelet Cramer MD [address] [place] [address] PCP - General 04/27/10 07/16/15 documented as of this encounter
--- OUTSIDE RECORDS SUMMARY | 2023-12-15 02:23 | XMS_ITS | Encounter Summary ---
Author Organization [facility] Address [facility] [place] [address] Care Team Providers Care Recreation Technician Name Role Phone Michelet Cramer MD Primary Care Provider [phone] Reason for Referral * Physical Therapy (Routine) - Closed Specialty Diagnoses / Procedures Referred By Contlorena t Referred To Contact Physical Therapy Diagnoses Traumatic patellofemoral subluxation, right, sequela Frankie Arvizu PA [address] [place] [address] Referral ID Status Reason Start Date Expiration Date V isits Requested Visits Authorized [id number] Closed Evaluate and Treat 03/06/2014 09/02/2014 8 8 Reason for Visit * Reason Comments Follow Up Surgery right knee shira s 02/10/14 Encounter Details Date Type Department Care Team (Late st Contact Info) Description 03/06/2014 2:40 PM EST Office Visit [place] [address] Benito Zhang MD [facility] [place] [address] Frankie Arvizu PA [address] [place] [address] Traumatic patellofemoral subluxation, right, sequela Discharge Disposition: [...] Sign Reading Time Taken Comments Blood Pressure 124/57 03/06/2014 3:18 PM EST Pulse 103 03/06/2014 3:18 PM EST Temperature 36.6 ??C (97.9 ??F) 03/06/2014 3:18 PM ES T Respiratory Rate - - Oxygen Saturation - - Inhaled Oxygen Concentration - - Weight - - Height 157.5 cm (5' 2) 03/06/2014 3:18 PM EST Body Mass Index - - documented in this encounter Progress Notes * Frankie Arvizu PA - 03/06/2014 3:33 PM EST PATIENT NAME: Samreen Martinez AGE: 13 y.o. MR#: [id number] DATE OF VISIT: 03/06/2014 Case Date: 02/10/2014 Surgeon: Surgeon(s) and Role: * Benito Zhang MD - Primary * Frankie Arvizu PA * Kevin Rene MD Preoperative diagnosis: recurant patella dislocation rt Postoperative diagnosis: recurant patella dislocation rt Procedure(s): OSTEOTOMY, TIBIA SHIRA ARTHROSCOPY KNEE REMOVE LOOSE BODY REPAIR DISLOCATING PATELLA STAFF: The patient was seen and the plan was formulated in conjunction with Dr. Zhang. CHIEF COMPLAINT: 3 week post-op evaluation of a right knee Shira osteotomy. HISTORY OF PRESENT ILLNESS Ms. Martinez a 13 y.o. year old female comes into clinic today for follow-up of the above. The mother reports that Samreen has been full weight bearing in her Miryam brace. She denies any pain, no fever, chills, chest pain, shortness of breath, nausea or vomiting. The patient is accompanied by her mother throughout the exam. ROS: negative for fever, chills, chest pain, shortness of breath, nausea or vomiting. Physical Exam Blood pressure 124/57, pulse 103, temperature 36.6 ??C (97.9 ??F), height 157.5 cm (5' 2), weight 0 kg (0 lb). Constitutional: oriented to person, place, and time and well-developed, well- nourished, and in no distress. Skin: Skin is warm and dry. Right Knee Exam Comments: Mild effusion. Obvious atrophy of the quadriceps muscles. Well-healing surgical incision.She is non-tender to palpation. Stable to varus/valgus stress. Negative Anterior/posterior drawer Neg Lachmans with a firm endpoint. Able to do a straight leg raise without lag. Normal sensation and motor function distally. RADIOLOGICAL STUDIES: I reviewed images of the right knee taken today, which included, AP & Lateral images, which showed s/p tibial tubercle osteotomy with 2 screw fixation. ASSESSMENT/PLAN: The patient was seen and the plan was formulated in conjunction with Dr. Zhang. Samreen Martinez is a 13 y.o. female presents to the clinic with 3 week post- op evaluation of a right knee Shira osteotomy. The patient is making good progress postoperatively. She reports that she has been full weightbearing in her brace. We discussed that at this point we would just start partial weightbearing on her right lower extremity in her brace locked in full extension. Over the next several weeks she can start to increase her weightbearing to full with use of her crutches. We will refer her to PT and have them start working on ROM and isometric strengthening of her quadricepsmuscles. The patient will return in 4 weeks for reevaluation and likely transition out of her Miryam brace and advancement of her activities. documented in this encounter Plan of Treatment Scheduled Referrals Name Type Priority Associated Diagnoses Orde r Schedule Referral to Physical Therapy Outpatient Referral Routine Traumatic patellofemoral subluxation, right, sequela Ordered: 03/06/2014 documented as of this encounter Results * [...] Diagnoses Diagnosis Traumatic patellofemoral subluxation, right, sequela Traumatic patellofemoral subluxation, right, sequela documented in this encounter Care Teams Recreation Technician Relationship Specialty Start Date End Date Michelet Cramer MD [address] [place] [address] PCP - General 04/27/10 07/16/15 documented as of this encounter
--- OUTSIDE RECORDS SUMMARY | 2023-12-15 02:23 | XMS_ITS | Encounter Summary ---
Author Organization [facility] [place] [address] Care Team Providers Care Email Marketing Assistant Name Role Phone Michelet Cramer MD Primary Care Provider [phone] Reason for Visit * Reason Onset Date Comments Follow Up Surgery 05/16/2014 Encounter Details Date Type Department Care Team (Late st Contact Info) Description 05/16/2014 Telephone [place] [phone] Benito Zhang MD [facility] [place] [address] Follow Up Surgery Social History Tobacco Use Types Packs/Day Years [...] Miscellaneous Notes * Telephone Encounter - Claudette Nguyen - 05/16/2014 10:35 AM EST LM for parent of Samreen. Dr. Zhang wishes to see her back in clinic around 07/11. He has only one slot left in that time frame so I booked the appt and left the information on the family's voicemail.Requested a call back to reschedule if the date and time were inconvenient. documented in this encounter Plan of Treatment Not on file documented as of this encounter Visit Diagnoses Not on filedocumented in this encounter Care Teams Email Marketing Assistant Relationship Specialty Start Date End Date Michelet Cramer MD [address] [place] [address] [address] [facility] [place] [address] PCP - General 04/27/10 07/16/15 documented as of this encounter
--- OUTSIDE RECORDS SUMMARY | 2023-12-15 02:23 | XMS_ITS | Encounter Summary ---
Author Organization [facility] Address [facility] [place] [address] Care Team Providers Care Toll Gate Tender Name Role Phone Michelet Cramer MD Primary Care Provider [phone] Reason for Referral * Physical Therapy (Routine) - Closed Specialty Diagnoses / Procedures Referred By Contlorena t Referred To Contact Physical Therapy Diagnoses Patellar dislocation, left, sequela Christian Sosa PA [facility] [place] [address] Referral ID Status Reason Start Date Expiration Date V isits Requested Visits Authorized [id number] Closed Evaluate and Treat 10/30/2014 04/28/2015 12 12 Reason for Visit * Reason Comments Left Knee Pain 09/08/14 Left Knee fu lkersons Encounter Details Date Type Department Care Team (Late st Contact Info) Description 10/30/2014 1:50 PM EDT Office [place] [address] Benito Zhang MD [facility] [place] [address] Patellar dislocation, left, sequela (Primary Dx) Discharge Disposition: Home Social History [...] Sign Reading Time Taken Comments Blood Pressure 118/57 10/30/2014 2:17 PM EDT Pulse 98 10/30/2014 2:17 PM EDT Temperature - - Respiratory Rate - - Oxygen Saturation - - Inhaled Oxygen Concentration - - Weight 100.4 kg (221 lb 6.4 oz) 10/30/2014 2:17 PM EDT fully clothed Height 161.9 cm (5' 3.75) 10/30/2014 2 :17 PM EDT verbal Body Mass Index 38.3 10/30/2014 2:17 PM EDT Body Mass Index Percentile 99.64% 10/30 2:17 PM EDT Growth Chart: [facility] (Girls, 2- 20 Years) documented in this encounter Progress Notes * Christian Sosa PA - 10/30/2014 2:28 PM EDT Surgeon(s) and Role: * Benito Zhang MD - Primary Date of Surgery: 09/08/14 POSTOPERATIVE DIAGNOSIS: Left knee recurrent patellar dislocation PROCEDURES PERFORMED: Left knee diagnostic arthroscopy, left knee Benito osteotomy with lateral release SUMMARY OF IMPLANTS USED: 42mm fully threaded [...] plateau: GRADE I Interconylar notch: INTACT ACL/PCL HPI: 14 yo female returns 2 months from tubercle transfer. She is doing well. No pain. No Swelling.ROM and stability are not limiting. She has been using a brace and is hoping to begin a smaller brace. She is feeling well aside from the knee. PE: Ambulatory without assist or antalgia. There is no effusion to either knee. No pain or laxity with varus and valgus stress. No patellar apprehension. Good quad strength X-rays: Again seen is anterior proximal tibial osteotomy with 2 cannulated screws traversing the proximal tibia within the right knee. No hardware complication is seen. Mild tricompartment degenerative changes seen with mild joint space loss and spurring. Small suprapatellar effusion with prepatellar soft tissue swelling is noted. No osseous destructive lesions are seen. Assessment: S/P Bilateral knee tubercle osteotomy Plan: We discussed her knees. The more recent left knee is progressing well. We'll transition her to a PTO brace. She was given a PT referral. We'll plan to see her again in 2 months or sooner as needed. documented in this encounter Plan of Treatment Scheduled Referrals Name Type Priority Associated Diagnoses Orde r Schedule Referral to Physical Therapy Outpatient Referral Routine Patellar dislocation, left, sequela Ordered: 10/30/2014 documented as of this encounter Visit Diagnoses Diagnosis Patellar dislocation, left, sequela- Primary documented in this encounter Care Teams Toll Gate Tender Relationship Specialty Start Date End Date Michelet Cramer MD [address] [place] [address] PCP - General 04/27/10 07/16/15 documented as of this encounter
--- OUTSIDE RECORDS SUMMARY | 2023-12-15 02:23 | XMS_ITS | Encounter Summary ---
Author Organization [facility] Address [facility] [place] [address] Care Team Providers Care Hot Iron Worker Name Role Phone Michelet Cramer MD Primary Care Provider [phone] Encounter Details Date Type Department Care Team (Late st Contact Info) Description 07/21/2014 Orders [place] [address] Benito Zhang MD [facility] DR ORTHOPAEDIC [place] [address] Social History Tobacco Use Types Packs/Day Years [...] Associated Diagnosis Comments FILM LIBRARY STORAGE ONLY MR KNEE Routine 07/21/2014 1:15 PM EDT documented in this encounter Results * Film Library- Storage only MR Knee (07/21/2014 1:15 PM EDT) Anatomical Region Laterality Modality Other 07/21/2014 1:15 PM EDT Narrative 07/21/2014 1:58 PM EDT This is a Non-reportable exam Procedure Note YOSELIN, UNSIGNED REPORT - 07/21/2014 This is a Non-reportable exam Benito Zhang MD [facility] FILM LIBRARY ORD ERABLES documented in this encounter Visit Diagnoses Not on filedocumented in this encounter Care Teams Hot Iron Worker Relationship Specialty Start Date End Date Michelet Cramer MD [address] [place] [address] PCP - General 04/27/10 07/16/15 documented as of this encounter
--- OUTSIDE RECORDS SUMMARY | 2023-12-15 02:23 | XMS_ITS | Encounter Summary ---
Author Organization [facility] [place] [address] Care Team Providers Care Helper Teacher Name Role Phone Michelet Cramer MD Primary Care Provider [phone] Reason for Visit * Reason Onset Date Comments Questions 08/08/2014 Encounter Details Date Type Department Care Team (Late st Contact Info) Description 08/08/2014 Telephone [place] [phone] Benito Zhang MD [facility] DR [place]AED[place] [address] Questions Social History Tobacco Use Types Packs/Day [...] Telephone Encounter - Chichi Meredith RN - 08/13/2014 1:33 PM EDT Message delivered to Dr. Zhang/Jean Carlos Infante - Dr. Zhang to call. * Telephone Encounter - Annemarie De León - 08/13/2014 8:26 AM EDT Cristy's mother, Winsome called for information on the next steps after MRI> before 2:30PM [phone] work number> After 2:30PM call [phone] her cell. She is awaiting a call back, review previous notes. * Telephone Encounter - Amalia Gordon - 08/08/2014 10:41 AM EDT Samreen's mother is calling this morning and would like to know the next steps after the MRI was done 07/15/14. The MRI results were already discussed with the family but would just like to know the next steps. documented in this encounter Plan of Treatment Not on file documented as of this encounter Visit Diagnoses Not on filedocumented in this encounter Care Teams Helper Teacher Relationship Specialty Start Date End Date Michelet Cramer MD [address] [place] [address] PCP - General 04/27/10 07/16/15 documented as of this encounter
--- OUTSIDE RECORDS SUMMARY | 2023-12-15 02:23 | XMS_ITS | Encounter Summary ---
Author Organization [facility] Address [facility] [place] [address] Care Team Providers Care Insurance Salesman Name Role Phone Michelet Cramer MD Primary Care Provider [phone] Reason for Visit * Reason Comments Follow Up Surgery Lt Knee Fulkersons Encounter Details Date Type Department Care Team (Late st Contact Info) Description 09/16/2014 3:30 PM EDT Office [place] [address] Benito Zhang MD [facility] [place] [address] Left knee pain (Primary Dx) Discharge Disposition: Home Social History [...] Sign Reading Time Taken Comments Blood Pressure 120/65 09/16/2014 4:27 PM EDT Pulse 107 09/16/2014 4:27 PM EDT Temperature - - Respiratory Rate - - Oxygen Saturation - - Inhaled Oxygen Concentration - - Weight 97.5 kg (215 lb) 09/16/2014 4:27 PM EDT Height 161.9 cm (5' 3.75) 09/16/2014 4:27 PM ED T Body Mass Index 37.19 09/16/2014 4:27 PM EDT Body Mass Index Percentile 99.49% 09/16/2014 4:2 7 PM EDT Growth Chart: [facility] (Girls, 2- 20 Years) documented in this encounter Progress Notes * Benito Zhang MD - 09/29/2014 6:46 AM EDT Subjective: Patient ID: Samreen Martinez is a 14 y.o. female. Date of Surgery: 09/08/14 PROCEDURES PERFORMED: Left knee diagnostic arthroscopy, left knee Benito osteotomy with lateral release HPI Overall Samreen is doing very well. She tolerated the procedure well. She is not requiring any pain medications. No fever or chills. Allergies Allergen Reactions ??? Sulfa (Sulfonamide Antibiotics) Rash Current Outpatient Prescriptions on File Prior to Visit Medication Sig Dispense Refill ??? acetaminophen (TYLENOL) 325 mg Tablet Take 2 tablets by mouth every 6 hours. 30 tablet 1 ??? oxyCODONE (ROXICODONE) 5 mg Tablet Take 1 tablet by mouth every 4 hours as needed for Pain. 35 tablet 0 No current facility-administered medications on file prior to visit. Review of Systems Objective: Physical Exam Blood pressure 120/65, pulse 107, height 161.9 cm (5' 3.75), weight 97.523 kg (215 lb), last menstrual period 09/05/2014. Left Knee Exam Swelling: Mild Effusion: No Tenderness None Range of Motion Extension: 0 Flexion: 120 Comments: Wounds are benign. No calf tenderness. Clinical alignment is good. Assessment and Plan: Status post left Benito osteotomy. The patient and her family and I discussed the findings today. We'll continue down her rehabilitation course. We will see her back in 4-6 weeks with repeat x-rays. She has to call with any questions or concerns. documented in this encounter Plan of Treatment [...] this encounter Visit Diagnoses Diagnosis Left knee pain- Primary Pain in joint, lower leg Left knee pain Pain in joint, lower leg documented in this encounter Care Teams Insurance Salesman Relationship Specialty Start Date End Date Michelet Cramer MD [address] [place] [address] PCP - General 04/27/10 07/16/15 documented as of this encounter
--- OUTSIDE RECORDS SUMMARY | 2023-12-15 02:24 | XMS_ITS | Encounter Summary ---
Author Organization [facility] [place] [address] Care Team Providers Care Harness Fitter Name Role Phone Michelet Cramer MD Primary Care Provider [phone] Reason for Referral * Physical Therapy (Routine) - Complete - Patient Will Schedule External Appt Specialty Diagnoses / Procedures Referred By Leeac t Referred To Contact Physical Therapy Diagnoses Effusion of knee joint Cole Brown MD [facility] [place] [address] Referral ID Status Reason Start Date Expiration Date Visits Requested Visits Authorized [id number] Complete - Patient Will Schedule External Appt Evaluate and Treat 1 08/30/2011 1 1 Encounter Details Date Type Department Care Team (Late st Contact Info) Description 03/03/2011 Orders [place] [address] Cole Brown MD [facility] [place] [address] Effusion of knee joint (Primary Dx) Social History Tobacco Use Types [...] Type Priority Associated Diagnoses Orde r Schedule REFERRAL TO PHYSICAL THERAPY Outpatient Referral Routine Effusion of knee joint Ordered: 03/03/2011 documented as of this encounter Visit Diagnoses Diagnosis Effusion of knee joint- Primary Effusion of lower leg joint documented in this encounter Care Teams Harness Fitter Relationship Specialty Start Date End Date Michelet Cramer MD [address] [place] [address] PCP - General 04/27/10 07/16/15 documented as of this encounter
--- OUTSIDE RECORDS SUMMARY | 2023-12-15 02:24 | XMS_ITS | Encounter Summary ---
Author Organization [facility] [place] [address] Care Team Providers Care Load Tallier Name Role Phone Michelet Cramer MD Primary Care Provider [phone] Reason for Visit * Reason Onset Date Comments Other 02/16/2011 Encounter Details Date Type Department Care Team (Late st Contact Info) Description 02/16/2011 Telephone [place] [phone] Elizabeth Hernadnez RN Other Social History Tobacco Use Types Packs/Day Years Used Date Smoking Tobacco: Never Smokeless Tobacco: Never Comments:Adults smoke outsid e Alcohol Use Standard Drinks/Week Comments No 0 (1 standard drink = 0.6 oz pur e alcohol) Sex and Gender Information Value Date Recorded Sex Assigned at Not on file Gender Identity Not on file Sexual Orientation Not on file documented as of this encounter Miscellaneous Notes * Telephone Encounter - Elizabeth Hernandez RN - 02/16/2011 12:08 PM EST Mom called to report that yesterday patient's knee looked more swollen yesterday, complaining of some burning feeling. She brought her to the ER and the ER physician said that she had two superficialblood clots and suggested that she stay out of her knee brace. Discussed with Dr. Brown who wants patient back in brace and happy to see back sooner than 03/02. Mom will bring patient her brace at school and call if she has further concerns. Mom will have [facility] fax ER report documented in this encounter Plan of Treatment Not on file documented as of this encounter Visit Diagnoses Not on filedocumented in this encounter Care Teams Load Tallier Relationship Specialty Start Date End Date Michelet Cramer MD [address] [place] [address] PCP - General 04/27/10 07/16/15 documented as of this encounter
--- OUTSIDE RECORDS SUMMARY | 2023-12-15 02:24 | XMS_ITS | Encounter Summary ---
Author Organization [facility] Address [facility] [place] [address] Care Team Providers Care Platform Beater Name Role Phone Virginia Cramer MD Primary Care Provider [phone] Encounter Details Date Type Department Care Team (Latest Contact Info) Description 12/16/2010 10:57 AM EDT - 12/17/2010 1:55 PM EDT Hospital Encounter [place] [id number] Brendan Navarro MD [facility] [place] [address] Discharge Disposition: Home Social History Tobacco Use [...] Sign Reading Time Taken Comments Blood Pressure 120/68 12/17/2010 8:37 AM EDT Pulse 108 12/17/2010 8:37 AM EDT Temperature 36.4 ??C (97.5 ??F) 12/17/2010 8:37 AM ED T Respiratory Rate 18 12/17/2010 8:37 AM EDT Oxygen Saturation 99% 12/17/2010 8:37 AM EDT Inhaled Oxygen Concentration - - Weight 58.2 kg (128 lb 4.9 oz) 12/16/2010 11:18 AM EDT Height - - Body Mass Index - - documented in this encounter Discharge Instructions * Patient Instructions* Rylan Guaman - 12/17/2010 1:38 PM EDT ORTHOPAEDIC SURGERY DISCHARGE INSTRUCTIONS Activity level: Activity as tolerated. Non weight bearing on the Left Leg. Keep the left leg elevated as much as possible for the next 48-72 hours to reduce swelling. Use crutches or wheelchair at all times to ambulate for balance and protection. Continue to follow your in patient physical therapist's recommendations. Diet: You may resume a regular, healthy diet. Medications: You may resume any home meds/vitamins upon discharge. In addition, please take the pain medications, Tylenol and Oxycodone as prescribed to you for pain. Pain medications can often cause constipation. Please take the laxative or stool softener prescribed for you as needed for constipation. Cast Cast/Splint: Keep the cast or splint in place until your follow-up with Orthopaedics. Keep the castclean and dry. It is easiest to sponge bathe, but if you must bathe, protect the cast/splint with aplastic bag high above the splint or cast and secured with adhesive tape. Do not submerge the cast in water at anytime. If the cast accidently gets wet call the office immediately to have it replaced. A wet cast can cause severe skin and wound problems. Call your doctor if you develop: Fevers greater than 100.5 Severe nausea or vomiting Increasing pain not controlled by pain medications Increasing redness or drainage from incisions Change in sensation Contact Information: Your orthopaedic surgeon:Dr. Kevin MD: [phone] If it is after 5:00PM on a weekday or a weekend and it is of an urgent nature please call [phone] and ask for the on-call orthopaedic resident. documented in this encounter Medications at Time of Discharge Medication Sig Dispensed Refills Start Date End Date naproxen (NAPROSYN) 375 mg tablet Take 1 tablet by mouth 2 times daily (with meals). After breakfast and supper. 30 tablet 3 01/05/2011 03/02/2011 diaZEPam (VALIUM) 2 mg tablet Take 1 tablet by mouth every 6 hours as needed for Anxiety (or pain) for 7 days. 30 tablet 0 12/17/2010 12/24/2010 OXYcodone (ROXICODONE) 5 mg immediate release tablet Take 1 tablet by mouth every 4 hours as needed for Pain for 10 days. 60 tablet 0 12/17/2010 12/27/2010 acetaminophen (TYLENOL) 325 mg tablet Take 1 tablet by mouth every 4 hours. 30 tablet 12/17/2010 02/14/2012 docusate sodium (COLACE) 50 mg capsule Take by mouth 2 times daily. As needed for constipation 10 capsule 12/17/2010 12/20/2013 documented as of this encounter Progress Notes * oZey Abraham RN - 12/17/2010 3:40 PM EDT Office of Care Management(OCM)/Clinical Installation And Service Technician(CRC)Initial Assessment O: Reviewed chart. Introduced self to parents/ caregiver and reviewed CRC role. CRC spoke with bothmom and step mom regarding discharge needs. Noris has used crutches in the past at school and maren have an elevator at school. Family has talked with the school nurse and accommodations will beplaced. Noris will be discharged to home today. Admitted with:Left knee arthroscopy with microfracture chondral injury and patella realignment Home/community services prior to admission:none : VIRGINIA CRAMER MD @PCPADD@ [phone] [place] primary Family supports:parents/step parents School/development issues:5th grade Transportation @ d/c: family appropriate car seat/ belt: avialable ride: Social Work consult: none Anticipated needs for discharge:note for school, step mom to ask discharging doctor for note. P: CRC to follow with Team and Family for coordination of disposition if any needs arise. * Simi Jin PT - 12/17/2010 10:06 AM EDT Physical Therapy Evaluation Patient profile: Patient is a 10 y.o. female of Brendan Hernandez MD, admitted on 12/16/2010 S/p (L)knee arthroscopy microfractures, chondral injury and patella re-allignment PMH: Past Medical History Diagnosis Date ??? Fracture of distal femur Per Mom, fx of lower femur and upper (?) tibia, long leg case Past Surgical History Procedure Date ??? Knee scope, diagnostic 08/31/2010 ARTHROSCOPY KNEE, DIAGNOSTIC performed by BRENDAN NAVARRO at [facility] OR ??? Apply long leg cast 08/31/2010 CAST APPLICATION, LONG LEG (THIGH TO TOES) performed by BRENDAN NAVARRO at [facility] OR ??? Knee scope, shave articular cart 08/31/2010 ARTHROSCOPY KNEE CHONDROPLASTY performed by BRENDAN NAVARRO at [facility] OR ??? Knee scope, drill oste diss+int fix 08/31/2010 ARTHROSCOPY KNEE, DRILLING & FIXATION OF OCD performed by BRENDAN NAVARRO at [facility] OR ??? Fix unstable patella, exten realign 12/16/2010 PATELLAR REALIGNMENT performed by BRENDAN NAVARRO at [facility] OR ??? Knee scope, remv loose body 12/16/2010 ARTHROSCOPY KNEE REMOVE LOOSE BODY performed by JENNIFER ZHANG at [facility] OR ??? Knee scope, abrasn arthroplasty 12/16/2010 ARTHROSCOPY KNEE, MULTIPLE DRILLING, MICROFRACTURE performed by JENNIFER ZHANG at [facility] OR ??? Apply long leg cast 12/16/2010 CAST APPLICATION, LONG LEG (THIGH TO TOES) performed by JENNIFER ZHANG at [facility] OR Interval History: There are no hospital problems to display for this patient. Social History: Home Living Type of Home: House Home Layout: Stairs to enter w/ rails (2 railings reportedly close enough to use both at one time) Home Equipment: Crutches Prior Function Level of [place]: Independent with ADLs and functional transfers Lives With: Family Receives Help From: Family Precautions/Special Considerations: Precautions/Limitations: fall precautions Weight-Bearing Status - LLE: nonweight-bearing Subjective: Pt c/o feeling 'dizzy' after receiving pain medicines but specified that she didn't feel lightheaded or like she was going to pass out. Is it OK if I take little steps? Objective: Total time spent with patient: 29 minutes evaluation Total timed interventions: 0 minutes Pain: (L) LE pain with movement, dependency Vital Signs: vital signs stable, pt on RA Mental Status/Behavior: Pt status: Alert, oriented, thought content appropriate Strength/ROM: WFL, (L) LE in long leg cast Bed Mobility: supine <-> Sit: minimal assist to move cast Transfers: Sit > Stand: contact guard to supervison using axillary crutches. Gait: Distance:12', 20', Device: axillary crutches Assist level: contact guard to supervision. Gait pattern: decreased step length, decreased crutch advancement Pt. to utilize axillary crutches and contact guard for ambulation with nursing. Balance: Sitting: pt able to maintain unsupported sitting balance EOB ?? Standing: pt able to maintain standing balance with crutches with contact guard Education: family and patient have been educated on Transfers, Safety and Gait and demonstrates understanding. Patient status, treatment, and mobility recommendations discussed with nursing. Assessment: Pt is experienced with amb with crutches and demonstrated improved gait pattern with increased distance. Pt's mother is a EMS DIRECTOR. Discussed NWB gait on stairs. Pt's mother did not feel it was necessary to practice stairs before disch 2/2 help at home and pt's experience on stairs. Pt will not need to use stairs when she goes back to school Goals: Safe disch plans Plan: Pt to be disch home with family today. Pager:[phone] SIMI JIN, PT 12/17/2010 Physical Therapy Rehabilitation Department * Bennett Zhao MD - 12/17/2010 6:46 AM EDT ORTHOPAEDIC PROGRESS NOTE SURGERY/ISSUE: Left knee arthroscopy with microfracture chondral injury and patella realignment Patient Active Problem List Diagnoses Code ??? Effusion of knee joint, left 719.06AK ??? Effusion of knee joint 719.06E Past Medical History Diagnosis Date ??? Fracture of distal femur Per Mom, fx of lower femur and upper (?) tibia, long leg case Interval History: No major issues, pain well controlled, Denies CP/SOB/N/V, tolerating po intake Temp: [36.5 ??C (97.7 ??F)-36.9 ??C (98.4 ??F)] Heart Rate: [94-123] Resp: [12-22] BP: (107-143)/(56-89) SpO2: [94 %-100 %] I/O last 3 completed shifts: In: 985 [I.V.:985] Out: 100 [Urine:100] I/O this shift: In: 1826 [P.O.:840; I.V.:886; IV Piggyback:100] Out: 1350 [Urine:1350] PE: NAD L LE Cast intact SITLT in toes Firing toes Toes WWP Lab Results Component Value Date WBC 12.0 07/06/2010 RBC 4.72 07/06/2010 HGB 13.1 07/06/2010 HCT 36.9 07/06/2010 PLATELET 366 07/06/2010 INR 1.1 07/07/2010 XRAYS: None A/P: Stable post-op ?? Active Issues: None ?? Activity: NWB to LLE ?? Pain Control: Transition to orals ?? Antibiotics: Roshni-operative ?? Anticoagulation: None ?? Drains: None ?? Dressing/Spints: Cast intact ?? Sierra: None ?? Dispo: Home possibley today pending comfort ?? Follow up:In [address] Navarro . * Og Escobedo RN - 12/16/2010 5:42 PM EDT Report from yoana FREDERICK * Og Escobedo RN - 12/16/2010 5:40 PM EDT Pt states pain better, Pt given FLY RAIL OPERATOR and inst on use documented in this encounter H&P Notes * Bennett Zhao MD - 12/16/2010 11:41 AM EDT Patient Name: Noris Martinez Patient Age: 10 y.o. Birthdate: 2000 Admit date: 12/16/2010 Attending Physician: Brendan Navarro MD HPI: 10 y/o female with left knee pain with chondral lesion and patella instablity. Patient Active Problem List Diagnoses Code ??? Effusion of knee joint, left 719.06AK ??? Effusion of knee joint 719.06E No current facility-administered medications on file prior to encounter. No current outpatient prescriptions on file prior to encounter. Allergies Allergen Reactions ??? Sulfa (Sulfonamide Antibiotics) Social: Lives in [facility] with mom PE: NAD Heart: RRR, No MRG Lungs: CTA B/L Labs: none needed A/P: Cleared for Surgery today. documented in this encounter Miscellaneous Notes * OR Attestation - Jennifer Zhang MD - 12/29/2010 8:08 AM EDT Attestation: Case Date: 12/16/2010 I was present and I participated during the entire procedure (does not need to include opening and closing). JENNIFER ZHANG MD 12/29/2010 * Miscellaneous - Provider, Scanning - 12/20/2010 1:48 PM EDT * Miscellaneous - Provider, Scanning - 12/20/2010 1:47 PM EDT * Brief Op Note - Brendan Navarro MD - 12/17/2010 4:13 PM EDT Brief Operative Note Patient Name: Noris Martinez : [id number] MR#: [id number] Case Date: 12/16/2010 Surgeon: Surgeon(s) and Role: Panel 1: * BRENDAN NAVARRO MD - Primary * BENNETT ZHAO MD - Resident-Surgeon Chief Panel 2: * JENNIFER ZHANG MD - Primary Preoperative diagnosis: left patellar instability, loose body, chondral injury Postoperative diagnosis: eft patellar instability, loose body, chondral injury Procedure(s): PATELLAR REALIGNMENT ARTHROSCOPY KNEE REMOVE LOOSE BODY ARTHROSCOPY KNEE, MULTIPLE DRILLING, MICROFRACTURE CAST APPLICATION, LONG LEG (THIGH TO TOES) Anesthesia: General Estimated Blood Loss: minimal Drains: none Disposition: awakened from anesthesia, extubated and taken to the recovery room in a stable condition, having suffered no apparent untoward event. Condition: doing well without problems (Please see the Surgical Encounter Summary for any Implant and Specimen details pertinent to this patient.) * OR Attestation - Brendan Navarro MD - 12/17/2010 4:12 PM EDT Attestation: Case Date: 12/16/2010 I was present and I participated during the entire procedure (does not need to include opening and closing). BRENDAN NAVARRO MD 12/17/2010 * Plan of Care - Cherelle Caldwell RN - 12/17/2010 1:59 PM EDT Problem: Pain, Acute (Pediatric) Goal: Acute Pain: Acceptable Pain Control/Comfort Level - Pain, Acute (Pediatric) noris with good pain management on Tylenol and oxycodone po. OOB to crutch walk with ease (hx use of crutches). Gd CSM to LLE. POing well and meghan. Mom verbalizes understanding of d/c instructions and f/u appts. * Discharge Summary - Rylan Guaman - 12/17/2010 9:35 AM EDT Department of Orthopaedic Medicine - Discharge Summary Patient Name: Noris Martinez Patient Age: 10 y.o. Birthdate: 2000 Admit date: 12/16/2010 Discharge date and time: No discharge date for patient encounter. Attending Physician: Brendan Navarro MD Discharge Diagnoses (Hospital Problems) and Secondary Diagnoses (Chronic Problems): There are no hospital problems to display for this patient. Active Non-Hospital Problems Diagnoses ??? Effusion of knee joint ??? Effusion of knee joint, left Effusion tapped on 07/06/2010. Fluid was described as red. Operations/Major Procedures: Operations: Case Date: 12/16/2010 Surgeon: Surgeon(s) and Role: Panel 1: * BRENDAN NAVARRO MD - Primary * BENNETT ZHAO MD - Resident-Surgeon Chief Panel 2: * JENNIFER ZHANG MD - Primary Procedure: PATELLAR REALIGNMENT - genzyme culture pack; ARTHROSCOPY KNEE REMOVE LOOSE BODY; ARTHROSCOPY KNEE, MULTIPLE DRILLING, MICROFRACTURE; CAST APPLICATION, LONG LEG (THIGH TO TOES) History of Presentation: Noris is a 10-year-old female who have previously done a knee scope on and an arthrotomy to stabilize some cartilage that was flaking off the lateral femoral condyle. Loose bodies were also removed at that time. She was initially in a cast and then a brace and returns. She had been on a four-vallejo and had fallen and hit her leg right over the lateral condyle and now has significant swelling and ecchymosis and tenderness and presents here today for evaluation of this. Hospital Course: Noris Martinez was admitted for the above diagnosis and surgical intervention. There were no intraoperative complications. Patient began rehab on POD#1 with NWB weight bearing on the left leg remembering to use a walker or crutches at all times for balance and protection. The FLY RAIL OPERATOR was discontinued on POD#1 and the patient was started on oral pain medications and was comfortable. The patient voided spontaneously throughout. Patient did have a bowel movement before discharge and was passing flatus and taking PO without difficulty. By POD# 1 the patient was medically stable and was cleared for safe discharge by PT to home. Important Studies and Lab Data: Labs: Lab Results Component Value Date WBC 12.0 07/06/2010 HGB 13.1 07/06/2010 HCT 36.9 07/06/2010 MCV 78.2 07/06/2010 Discharge Conditions/Prognosis: Stable, awake, and alert. Mobilizing with walker/crutches, pain controlled on oral medications. Patient Vitals in the past 8 hrs: BP Temp Temp src Pulse Resp SpO2 12/17/10 1140 105/56 mmHg 36.7 ??C (98.1 ??F) Oral 81 18 98 % 12/17/10 0837 120/68 mmHg 36.4 ??C (97.5 ??F) Oral 108 18 99 % Discharge to: Home Discharge Medications: Current Discharge Medication List New Meds Details acetaminophen (TYLENOL) 325 mg Take 325 mg by mouth every 4 hours. Qty: 30 tablet Refills: diaZEPam (VALIUM) 2 mg Take 2 mg by mouth every 6 hours as needed for Anxiety (or pain). Qty: 30 tablet Refills: 0 docusate sodium (COLACE) 50 mg capsule Take by mouth 2 times daily. As needed for constipation Qty: 10 capsule Refills: OXYcodone (ROXICODONE) 5 mg Take 5 mg by mouth every 4 hours as needed for Pain. Qty: 60 tablet Refills: 0 Updated Allergies/ADRs: Allergies Allergen Reactions ??? Sulfa (Sulfonamide Antibiotics) Instructions Given to Patient at Discharge: Provider Instructions ORTHOPAEDIC SURGERY DISCHARGE INSTRUCTIONS Activity level: Activity as tolerated. Non weight bearing on the Left Leg. Keep the left leg elevated as much as possible for the next 48-72 hours to reduce swelling. Use crutches or wheelchair at all times to ambulate for balance and protection. Continue to follow your in patient physical therapist's recommendations. Diet: You may resume a regular, healthy diet. Medications: You may resume any home meds/vitamins upon discharge. In addition, please take the pain medications, Tylenol and Oxycodone as prescribed to you for pain. Pain medications can often cause constipation. Please take the laxative or stool softener prescribed for you as needed for constipation. Cast Cast/Splint: Keep the cast or splint in place until your follow-up with Orthopaedics. Keep the castclean and dry. It is easiest to sponge bathe, but if you must bathe, protect the cast/splint with aplastic bag high above the splint or cast and secured with adhesive tape. Do not submerge the cast in water at anytime. If the cast accidently gets wet call the office immediately to have it replaced. A wet cast can cause severe skin and wound problems. Call your doctor if you develop: Fevers greater than 100.5 Severe nausea or vomiting Increasing pain not controlled by pain medications Increasing redness or drainage from incisions Change in sensation Contact Information: Your orthopaedic surgeon:Dr. Kevin MD: [phone] If it is after 5:00PM on a weekday or a weekend and it is of an urgent nature please call [phone] and ask for the on-call orthopaedic resident. General Instructions None Future Appointments and Orders Future Appointments: Provider: Department: Dept Phone: Center: 12/31/2010 1:40 PM Brendan Navarro MD [facility] [phone] [place] Provider Contact Information: Primary Care Provider: VIRGINIA CRAMER MD [phone] Hospital Attending: Brendan Navarro MD Department of Orthopaedic Surgery Pediatrics: [phone] For questions regarding this document or issues relating to this hospitalization on the Medical Service, please contact your inpatient physician through the [facility] . Issues afterhours and on weekends will be handled by the Hospitalist staff on-call. Signed: RYLAN GUAMAN MD 12/17/2010 * Plan of Care - Kika Salinas RN - 12/17/2010 6:10 AM EDT Problem: Pain, Acute (Pediatric) Intervention: Acute Pain: Related Risk Factors (Pediatric) S/O: Pain control adequate with FLY RAIL OPERATOR Morphine and scheduled tylenol -08/27. Stood at bedside with crutches NWB left leg, ambulated 4 steps and c/o increase discomfort with leg in dependent position. Returned to bed and voided using bedpan. Able to roll and scoot self in bed';changing positions independently. L Leg casted, CDI, elevated on pillows, CMS intact, flexes/extends and wiggles all toes, brisk cap refill bilaterally; JAILYN 98-100% on L 2nd toe. Afebrile. VSS. Tolerating PO fluids. No stool. Mom at bedside participating in care A: Age appropriate 10 yo Post op day #1 progressing nicely; stable P: Assess NV. Pain control/ transition. Encourage mobility/crutch walk. Support developmental needs. * Plan of Care - Cherelle Caldwell RN - 12/16/2010 6:53 PM EDT Problem: Pain, Acute (Pediatric) Goal: Acute Pain: Acceptable Pain Control/Comfort Level - Pain, Acute (Pediatric) Arrived on floor at 1815. Awake, alert oriented with mom dad and step parents. Gd CSM to LLE. C/o pain at 5/10 yet very talkative and pleasant. PIV intact without redness inflammation. On pulse ox. Oriented to unit p/p and tour given. All questions answered. * Op Note - Bennett Zhao MD - 12/16/2010 4:00 PM EDT [facility] Operative Note Patient Name: Noris Martinez : [id number] MR#: [id number] Case Date: 12/16/2010 Surgeon: Surgeon(s) and Role: Panel 1: * BRENDAN NAVARRO MD - Primary * BENNETT ZHAO MD - Resident-Surgeon Chief Panel 2: * JENNIFER ZHANG MD - Primary Preoperative diagnosis: Left patellar instability, loose body, chondral injury lateral femoral condyle Postoperative diagnosis: Left patellar instability, loose body, chondral injury lateral femoral condyle Procedure(s): PATELLAR REALIGNMENT ARTHROSCOPY KNEE REMOVE LOOSE BODY ARTHROSCOPY KNEE, MULTIPLE DRILLING, MICROFRACTURE CAST APPLICATION, LONG LEG (THIGH TO TOES) General Estimated Blood Loss: 25 cc Drains: None Disposition: awakened from anesthesia, extubated and taken to the recovery room in a stable condition, having suffered no apparent untoward event. Condition: doing well without problems INDICATION: Noris is a 10-year-old female who presented to [facility] with left knee pain. She was found to have a significant patellae instability and a chondral injury to the left femoral condyle. She has undergone a previous arthroscopic chondral drilling and repair of a chondral injury. Due to the persistence of patellar instability and chondral injury, a decision was made to pursue arthroscopic examination, evaluation and possible cartilage repair along with an open patellar realignment procedure. Risks and benefits of the procedure were reviewed with the patient. She elected to proceed forward with this case. DESCRIPTION OF EVENTS: The patient was seen in the Same Day Surgery area where informed consent was confirmed and the appropriate site was marked. The patient was brought back to the operating room and placed on the operating table in a supine position. General anesthesia was administered. A time-out was performed per [facility] protocol and preoperative antibiotics were administered. First, It was decide to perform an arthroscopy. A standard lateral entry portal was made and a diagnostic arthroscopic procedure was performed. Examination of the patellar pouch had diffuse synovitis. Medial gutter was without loose bodies. Medial meniscus was without injury. Loose chondral fragment was found within notch. Examination of notch was with findings. Lateral meniscus was without injury. ACL and PCL were intact. Next medial portal was made under visualization. Lateral anterior femoral condyle was found to have a large prior osteochondral injury with a new extension flap anterosuperiorly.This was unstable, it was debrided. A debridement of the anterior flap of the cartilage was undertaken using a combination of up biters and shaver. After it was felt to be back to a stable base, we decided to perform a microfracture. The chondral picks were placed at 90 degrees to the subchondral bone and microfracture was performed allowing for a significant bleeding of bone. Next, a synovial biopsy was taken and this was sent for pathology. After we were comfortable with the microfracture of the osteochondral defect, we proceeded to our patellar alignment. The tourniquet was put up to 250 mmHg. An approximately 4 cm incision was made over the patellae. A #15 blade was used to incise the skin and it was dissected down to the capsule. Next, inferiorly at the lateral aspect of the patellar tendon, a lateral release was performed to the superior pole of the patella. This provided mobilization in a medial fashion of the patella. Next, our attention was drawn to the medial aspect of the patella and the vastus medialis origin was identified. This was found to be gapped from the bony attachment of the superior medial aspect of the patella. Next, a knife was used to develop a plane of the VMO with careful attention not to enter through the synovium in performing an arthrotomy. This layer was carefully elevated as one thick flap with an area of fascia that was left intact. Next, the joint capsule and synovium was divided in line with the medial patella and patella ligament. This was subsequently oversewn using 0 Vicryl sutures and the VMO that was previously elevated as a single flap was brought over in a lateral position over the patella and attached through figure of eight 0 Vicryl sutures. This provided excellent medialization of the patella and the patella was well situated within the trochlear groove. Next, careful attention to keep the knee in full extension. The remainder of the wound was closed. The knee was irrigated copiously with normal saline, 2-0 Vicryl sutures were used to approximate subcutaneous tissues and 3-0 Vicryl was used to close the skin. The knee was washed and dried. A 4 x 4 and sterile Webril dressing was applied and the knee was placed in a well-molded long leg plaster cast, I reinforced with fiberglass. The patient was awoken from anesthesia without complications and transferred to the same day surgery area in stable condition. Dr. Navarro and Dr. Zhang were scrubbed and present for the entire case. There were no immediate complications known. * Miscellaneous - Provider, Scanning - 12/16/2010 11:27 AM EDT documented in this encounter Plan of Treatment Not on file documented as of this encounter Procedures Procedure Name Priority Date/Time Associated Diagnosis Comments SURGICAL PATHOLOGY REPORT Routine 12/16/2010 2:34 PM EDT SPECIMEN TO PATHOLOGY Routine 12/16/2010 2:10 PM EDT SPECIMEN TO PATHOLOGY Routine 12/16/2010 2:10 PM EDT CAST APPLICATION, LONG LEG (THIGH TO TOES) (WRVU 1.4) Yes 12/16/2010 12:50 PM EDT eft patellar instability, loose body, chondral injury ARTHROSCOPY KNEE, MULTIPLE DRILLING, MICROFRACTURE (WRVU 8.99) Yes 12/16/2010 12:50 PM EDT eft patellar instability, loose body, chondral injury ARTHROSCOPY KNEE REMOVE LOOSE BODY (WRVU 7.19) Yes 12/16/2010 12:50 PM EDT eft patellar instability, loose body, chondral injury PATELLAR REALIGNMENT (WRVU 10.21) Yes 12/16/2010 12:50 PM EDT eft patellar instability, loose body, chondral injury documented in this encounter Results * Surgical Pathology Report (12/16/2010 2:34 PM EDT) Surgical Pathology Report [id number] ? Location: [place]; [facility]; A The signing pathologist has (i) examined the relevant preparation(s) for the specimen(s) and (ii) rendered or confirmed the diagnosis(es). . ?Pathology Surgical Pathology Final Report Clinical Information Specimen Submitted: A - Left knee osteochondral loose body B - Left knee synovial biopsy Clinical History/Diagnosis : Left patellar instability, loose body, chondral injury Gross Description A - Labeled/Fixative: Left knee osteochondral loose body, saline. Qty/Size/Weight: ?Three, ranging from 0.3 cm to 1.5 cm. Tissue Description: ?? White, cartilaginous nodule. Sections/Processi ng: ??(R1) B - Labeled/Fixative: Left knee synovial biopsy, fresh. Qty/Size/Weight: ?Three, averaging 0.4 cm. Tissue Description: ?? Soft, pink-white tissues. Sections/Processi ng: ??(T1) ??aje/SNS Microscopic Description Slides reviewed, microscopic description not recorded. Diagnosis A - Left knee osteochondral loose body: Fragment of partially-ossifie d hyaline cartilage, consistent with loose body. B - Left knee synovium, biopsy: Synovium with mild chronic inflammation and hemosiderin laden macrophages consistent with previous hemorrhage. CR-0 12/20/10 KO 12/20/10 Verified by: ? Haily Burroughs MD ?Pathologist ?(Electronic Signature) The attending pathologist whose signature appears on this report has reviewed all diagnostic slides and has edited the gross and/or microscopic portion of the report in rendering the final pathologic diagnosis. OSCAR HEREDIA 12/16/2010 2:34 PM EDT Jennifer Zhang MD PATHOLOGY/CYTOLOGY [place] Performing Organization Address [facility] de Phone Number OSCAR HEREDIA * Specimen to Pathology (surgical or derm) (12/16/2010 2:10 PM EDT) AP Specimen 12/16/2010 2:10 PM EDT 12/16/2010 2:10 PM EDT Narrative OSCAR HEREDIA - 12/16/2010 2:10 PM EDT Specimen requisition ordered. ??Separate Pathology report to follow Jennifer Zhang MD PATHOLOGY/CYTOLOGY [place] Performing Organization Address [facility] de Phone Number OSCAR HEREDIA * Specimen to Pathology (surgical or derm) (12/16/2010 2:10 PM EDT) AP Specimen 12/16/2010 2:10 PM EDT 12/16/2010 2:10 PM EDT Narrative OSCAR HEREDIA - 12/16/2010 2:10 PM EDT Specimen requisition ordered. ??Separate Pathology report to follow Jennifer Zhang MD PATHOLOGY/CYTOLOGY [place] Performing Organization Address [facility] de Phone Number OSCAR HEREDIA documented in this encounter Visit Diagnoses Not on filedocumented in this encounter Administered Medications Inactive Administered Medications - up to 3 most recent administrations Medication Order MAR Action Action Date Dose Rate Site acetaminophen (TYLENOL) tablet 575 mg 575 mg (10 mg/kg/dose ? 58.2 kg), Oral, EVERY 4 HOURS SCHEDULED, First dose on Emma 12/16/10 at 2000, Until Discontinued, Do NOT exceed 75 mg/kg for 24 hours, Routine Given 12/17/2010 12:00 PM EDT 575 mg Given 12/17/2010 8:00 AM EDT 575 mg Given 12/17/2010 4:17 AM EDT 575 mg ceFAZolin (ANCEF) 1g in dextrose 5% 50mL 1,000 mg (17.2 mg/kg/dose), Intravenous, EVERY 8 HOURS, 3 doses, First dose on Emma 12/16/10 at 1730, Last dose on Mon12/17/10 at 1400, Administer over 30 Minutes Given 12/17/2010 6:11 AM EDT 1,000 mg 100 mL/hr Given 12/16/2010 10:00 PM EDT 1,000 mg 100 mL/hr docusate sodium (COLACE) capsule 150 mg 150 mg (5 mg/kg/day ? 58.2 kg), Oral, 2 TIMES DAILY, First dose on Mon12/17/10 at 0945, Until Discontinued, Routine Given 12/17/2010 11:07 AM EDT 150 mg fentaNYL 50mcg/mL injection 15-30 mcg (0.25-0.5 mcg/kg ? 60 kg Order-specific weight), Intravenous, EVERY 5 MIN PRN, Starting on Emma 12/16/10 at 1605, Until Emma 12/16/10 at 1802, Pain, for breakthrough pain, Usual dose range 0.25-0.5 micrograms/kg/dose. Hold for respiratory rate less than 12. Maximum dose = 90 mcg per hour., PACU Recovery, Routine Given 12/16/2010 4:37 PM EDT 10 mcg Given 12/16/2010 4:21 PM EDT 15 mcg Given 12/16/2010 4:11 PM EDT 15 mcg lactated ringers infusion 80 mL/hr, Intravenous, CONTINUOUS, Starting on Emma 12/16/10 at 1730, Until Mon12/17/10 at 0706 New Bag 12/16/2010 5:28 PM EDT 80 mL/hr 80 mL/hr morphine 1 mg/mL FLY RAIL OPERATOR 30 mL Intravenous, FLY RAIL OPERATOR ONLY, Starting on Emma 12/16/10 at 1730, Until Mon12/17/10 at 0706, LOADING DOSE (0-4 mg): 0, FLY RAIL OPERATOR DOSE (0.5-1.5 mg): .5, LOCKOUT INTERVAL (5-20 minutes): 6, CONTINUOUS Infusion Rate (for opioid tolerant patients only): 0, FOUR HOUR DOSE LIMIT (5-30 mg): 20 Rate/Dose Verify 12/16/2010 6:47 PM EDT mL/hr Rate/Dose Verify 12/16/2010 6:46 PM EDT mL/hr New Syringe/Cartridge 12/16/2010 5:30 PM EDT mL /hr morphine 2 mg/mL carpuject 0.5 mg 0.5 mg (0.19394 mg/kg/dose), Intravenous, EVERY 10 MIN PRN, Starting on Emma 12/16/10 at 1651, Until Mon12/16/10 at 1802, Pain, resp rate >8/min, PACU Recovery, Routine Given 12/16/2010 5:23 PM EDT 0.5 mg Given 12/16/2010 5:09 PM EDT 0.5 mg OXYcodone (ROXICODONE) immediate release tablet 5 mg 5 mg (0.1 mg/kg/dose ? 58.2 kg), Oral, EVERY 4 HOURS PRN, Starting on Emma 12/16/10 at 1818, Until Mon12/17/10 at 1600, Pain, Routine Given 12/17/2010 1:15 PM EDT 5 mg Given 12/17/2010 9:14 AM EDT 5 mg documented in this encounter Active and Recently Administered Medications Times are shown in EDT. Scheduled Medication Order 12/15/2010 12/16/2010 12/17/2010 acetaminophen (TYLENOL) tablet 575 mg 575 mg (10 mg/kg/dose ? 58.2 kg), Oral, EVERY 4 HOURS SCHEDULED, First dose on Emma 12/16/10 at 2000, Until Discontinued, Do NOT exceed 75 mg/kg for 24 hours, Routine 1903 (Given - Provider: Cherelle Caldwell, YOLY) 0023 (Given - Provider: Kika Salinas, YOLY)0417 (Given - Provider: Kika Salinas, RN)0800 (Given - Provider: Cherelle Caldwell, YOLY)1200 (Given - Provider: Cherelle Caldwell, YOLY) ceFAZolin (ANCEF) 1g in dextrose 5% 50mL (CANCELED) 1,000 mg (17.2 mg/kg/dose), Intravenous, EVERY 8 HOURS, 3 doses, First dose on Emma 12/16/10 at 1730, Last dose on Mon12/17/10 at 1400, Administer over 30 Minutes 2200 (Given - Provider: Kika Salinas RN) 0611 (Given - Provider: Kika Salinas RN) ceFAZolin (ANCEF) 1g in dextrose 5% 50mL (COMPLETED) 1,000 mg (17.2 mg/kg/dose), Intravenous, ONCE, 1 dose, On Emma 12/16/10 at 1245, Administer over 30 Minutes, To be administered upon arrival to the OR within one hour prior to incision., Day of Surgery (Day of Procedure) 1245 (Due)1302 (Given - Provider: Kevin Yo CRNA) docusate sodium (COLACE) capsule 150 mg 150 mg (5 mg/kg/day ? 58.2 kg), Oral, 2 TIMES DAILY, First dose on Mon12/17/10 at 0945, Until Discontinued, Routine 1107 (Given - Provid er: Cherelle Caldwell RN - Comment: awaited dose from Pharmacy) Continuous Medication Order 12/15/2010 12/16/2010 12/17/2010 lactated ringers infusion (CANCELED) 80 mL/hr, Intravenous, CONTINUOUS, Starting on Emma 12/16/10 at 1730, Until Mon12/17/10 at 0706 1728 (New Bag - Provider: Og Escobedo RN) morphine 1 mg/mL FLY RAIL OPERATOR 30 mL (CANCELED) Intravenous, FLY RAIL OPERATOR ONLY, Starting on Emma 12/16/10 at 1730, Until Mon12/17/10 at 0706, LOADING DOSE (0-4 mg): 0, FLY RAIL OPERATOR DOSE (0.5-1.5 mg): .5, LOCKOUT INTERVAL (5-20 minutes): 6, CONTINUOUS Infusion Rate (for opioid tolerant patients only): 0, FOUR HOUR DOSE LIMIT (5-30 mg): 20 1730 (New Syringe/Cartridge - Provider: Og Escobedo RN)1846 (Rate/Dose Verify - Provider: Cherelle Caldwell RN - Comment: with AM)184 (Rate/Dose Verify - Provider: Cherelle Caldwell RN - Comment: with AM) PRN Medication Order 12/15/2010 12/16/2010 12/17/2010 diaZEPam (VALIUM) tablet 6 mg 6 mg (0.1 mg/kg/dose ? 58.2 kg), Oral, EVERY 6 HOURS PRN, Starting on Emma 12/16/10 at 1818, Until Mon12/17/10 at 1600, Anxiety, or pain, Routine fentaNYL 50mcg/mL injection (CANCELED) 15-30 mcg (0.25-0.5 mcg/kg ? 60 kg Order-specific weight), Intravenous, EVERY 5 MIN PRN, Starting on Emma 12/16/10 at 1605, Until Emma 12/16/10 at 1802, Pain, for breakthrough pain, Usual dose range 0.25-0.5 micrograms/kg/dose. Hold for respiratory rate less than 12. Maximum dose = 90 mcg per hour., PACU Recovery, Routine 1611 (Given - Provider: Yoana Bryant, RN)1621 (Given - Provider: Yoana Bryant RN)1637 (Given - Provider: Yoana Byrant RN) morphine 2 mg/mL carpuject 0.5 mg (CANCELED) 0.5 mg (0.20871 mg/kg/dose), Intravenous, EVERY 10 MIN PRN, Starting on Emma 12/16/10 at 1651, Until Emma 12/16/10 at 1802, Pain, resp rate >8/min, PACU Recovery, Routine 1709 (Given - Provider: Og Escobedo, YOLY)1723 (Given - Provider: Og Escobedo, YOLY) OXYcodone (ROXICODONE) immediate release tablet 5 mg 5 mg (0.1 mg/kg/dose ? 58.2 kg), Oral, EVERY 4 HOURS PRN, Starting on Emma 12/16/10 at 1818, Until Mon12/17/10 at 1600, Pain, Routine 0914 (Given - Provid er: Cherelle Caldwell, RN)1315 (Given - Provider: Cherelle Caldwell, RN) documented in this encounter Care Teams Platform Beater Relationship Specialty Start Date End [place] [address] PCP - General 04/27/10 07/16/15 documented as of this encounter
--- OUTSIDE RECORDS SUMMARY | 2023-12-15 02:24 | XMS_ITS | Encounter Summary ---
Author Organization [facility] [place] [address] Care Team Providers Care Accounts Supervisor Name Role Phone Virginia Rick MD Primary Care Provider [phone] Encounter Details Date Type Department Care Team (Latest Contact Info) Description 04/05/2011 12:00 PM EST - 04/05/2011 3:26 PM EST Hospital [place] [address] Jennifer Zhang MD [facility] [address] [place] [address] Knee pain Discharge Disposition: Home Social History Tobacco Use [...] Taken Comments Blood Pressure - - Pulse 84 04/05/2011 3:00 PM EST Temperature 36.1 ??C (97 ??F) 04/05/2011 2:06 PM EST Respiratory Rate 22 04/05/2011 3:00 PM EST Oxygen Saturation 99% 04/05/2011 3:00 PM EST Inhaled Oxygen Concentration - - Weight 59.4 kg (130 lb 15.3 oz) 012 12:10 PM EST Height - - Body Mass Index - - documented in this encounter Discharge Instructions * Discharge Instructions* Ervin Kaur RN - 04/05/2011 2:37 PM EST 1. Go home and rest. You may be sleepy for several hours. Take it easy as sudden position changes may cause nausea. 2. Be careful on stairs, as you may be unsteady on your feet. 3. Follow a light to regular diet as tolerated today. If nausea occurs, start with clear liquids, and progress slowly to a regular diet. 4. IV site - slight redness or tenderness is normal, you can use warm compresses. If tenderness andredness increases or foul drainage occurs, please contact your M.D. 5. Children may be cranky or irritable, and should be supervised closely. No bike riding, skateboarding, or gym set activities for 24 hours. Patients who have had endotracheal tubes. (This tube, used by the anesthesia department, is passed down your throat after you are asleep, to ensure safe air passage during your operation). 1. A sore throat is normal due to the tube. Cold liquids or soothing lozenges will help ease the discomfort. 2. The generalized muscle aches are due to the medication given to you just before the tube is inserted. As the medication wears off, you may develop muscle soreness, which usually goes away in 12-24hours. [facility] - Information Same Day Surgery * Patient Instructions* Kane Chu - 04/05/2011 2:12 PM EST ORTHOPAEDIC SURGERY DISCHARGE INSTRUCTIONS Activity level: You may place as much weight as you can tolerate on your left leg. Uses crutches asneeded to help you get up. Anticoagulation: Not applicable Diet: Resume your regular diet. Try to limit the amount of sugar you take in. Medications: Use the naproxen and the vicodin as needed Shower/Bath: You may shower in 72 hours after the dressing has been removed. Wound Care: Remove the dressing in 3 days including the yellow bandage. Replace the dressing with bandaids and change daily. Do not let the wound go under water. Call your doctor if you develop: Fevers greater than 100.5 Severe nausea or vomiting Increasing pain not controlled by pain medications Increasing redness or drainage from incisions Change in sensation Contact Information: Your orthopaedic surgeon:Jennifer Zhang MD: Sports: [phone] If it is after 5:00PM on a weekday or a weekend and it is of an urgent nature please call [phone] and ask for the on-call orthopaedic resident. Your Primary Care Physician: VIRGINIA RICK MD [phone] documented in this encounter Medications at Time of Discharge Medication Sig Dispensed Refills Start Date End Date hydroCODone-acetamin ophen (VICODIN) 5-500 mg per tablet Take 1-2 tablets by mouth every 6 hours as needed for Pain for 10 days. 30 tablet 0 04/05/2011 04/14/2011 naproxen (NAPROSYN) 375 mg tablet Take 1 tablet by mouth 2 times daily (with meals). After breakfast and supper. 30 tablet 3 03/02/2011 08/04/2011 acetaminophen (TYLENOL) 325 mg tablet Take 1 tablet by mouth every 4 hours. 30 tablet 12/17/2010 02/14/2012 docusate sodium (COLACE) 50 mg capsule Take by mouth 2 times daily. As needed for constipation 10 capsule 12/17/2010 12/20/2013 documented as of this encounter Progress Notes * Ervin Kaur RN - 04/05/2011 3:19 PM EST Pt up and ambulated to restroom with crutches. No C/O voiced. Discharge instructions given. documented in this encounter H&P Notes * Kane Chu - 04/04/2011 8:49 PM EST H&P from VIRGINIA RICK MD on 2011 that is scanned into the system was reviewed. Medications, Allergies, Medical History, and Problem list were updated and reviewed as necessary. Plan to proceed with knee arthroscopy. documented in this encounter Miscellaneous Notes * Miscellaneous - Provider, Scanning - 04/07/2011 8:21 AM EST * Miscellaneous - Provider, Scanning - 04/05/2011 10:19 PM EST * Op Note - Kane Chu - 04/05/2011 3:16 PM EST [facility] Operative Note Department of Orthopaedics Patient Name: Andrea Hagan Case Date: 04/05/2011 Surgeon(s) and Role: Surgeon(s) and Role: * JENNIFER ZHANG MD - Primary * KANE CHU MD - Resident-Surgeon Chief Preoperative diagnosis: Inflammatory [...] surface NWB divot. Meniscii intact. Moderate synovitis Indications: Andrea Hagan is a 10 y.o. female with history, physical exam, and radiographic findings of inflammatory synovitis. She had already undergone arthroscopy and VMO advancement. Dr. Way (Rheumatology), Dr. Brown (Pediatric Orthopaedics) and Dr. Zhang, recommended that Andrea Hagan return to the or for a repeat look at the healing response, to obtain a cell count and toobtain more synovial biopsies. After a discussion of the risks and benefits of surgical treatment the patient elected to undergo the procedure. Description of the Procedure: The patient was identified in the preoperative holding area and green cantwell was placed by Dr. Zhang on the left knee. The patient was brought to the operating room by the anesthesia staff. A time-out was held according to [facility] universal protocol. The knee was then prepped using Betadine. Using an 18-gauge needle and a 20 mL syringe, an aspiration was then performed. Approximately 1 mL of joint fluid was aspirated and sent to hematology lab for cell count. The patient received cefazolin preoperatively within one hour of the incision. The left leg was then prepped using chlorhexidine, alcohol, and DuraPrep and draped in sterile fashion. Using the previous incision, an inferolateral portal was then obtained and the trocar sheath was inserted into the knee atraumatically. An arthroscope was inserted and a diagnostic arthroscopy was performed. There was moderate synovitis with hemosiderin staining throughout the synovium. There was fibrocartilage in the lateral femoral condyle lesion measuring 1.6 cm x 2 cm. No loose bodies were evident. There were grade 2 and 3 changes in the trochlea as well. On the medial compartment, there was a chondral surface divot over the nonweightbearing region. The menisci were both intact. Under direct visit, we obtained a medial portal and a probe was placed to aid in the diagnostic arthroscopy. Using an arthroscopic punch, synovial biopsies were obtained in the superolateral ports as well as the medial compartment synovium. These were sent to pathology. The knee was then copiously irrigated and the incisions were closed using 3-0 nylon in an interrupted fashion. At the end of the case, all sponge and needle counts were correct. There were no complications. 4 mL of 0.25% Marcaine without epinephrine were injected into bilateral portals, but not within the joint. The knee was dressed using Xeroform gauze, Kerlix, and an Casey wrap. * OR Attestation - Jennifer Zhang MD - 04/05/2011 1:58 PM EST Attestation: Case Date: 04/05/2011 I was present and I participated during the entire procedure (does not need to include opening and closing). JENNIFER ZHANG MD 04/05/2011 * Brief Op Note - Jennifer Zhang MD - 04/05/2011 1:55 PM EST Brief Operative Note Patient Name: Andrea Hagan : [id number] MR#: [id number] Case Date: 04/05/2011 Surgeon: Surgeon(s) and Role: * JENNIFER ZHANG MD - Primary * KANE CHU MD - Resident-Surgeon Chief Preoperative diagnosis: internal derangement left knee Postoperative diagnosis: internal derangement left knee Procedure(s): ARTHROSCOPY KNEE SYNOVECTOMY LIMITED ARTHROCENTESIS, ASPIRATION OR INJECTION, MAJOR JOINT OR BURSA, KNEE Anesthesia: General Estimated Blood Loss: 5cc Fluids: 400 cc crystalloid Findings: Fibrocartilage on the lateral femoral condyle lesion measured 1.6 cm X 2.0 cm. No loose bodies evident. Grade II/III. Medial compartment chondral surface NWB divot. Meniscii intact. Moderate synovitis Drains: none Disposition: awakened from anesthesia, extubated and taken to the recovery room in a stable condition, having suffered no apparent untoward event. Condition: doing well without problems (Please see the Surgical Encounter Summary for any Implant and Specimen details pertinent to this patient.) * Miscellaneous - Provider, Scanning - 04/05/2011 12:15 PM EST documented in this encounter Plan of Treatment Not on file documented as of this encounter Procedures Procedure Name Priority Date/Time Associated Diagnosis Comments SURGICAL PATHOLOGY REPORT Routine 04/05/2011 2:14 PM EST SPECIMEN TO PATHOLOGY Routine 04/05/2011 1:48 PM EST CELL COUNT BODY FLUID Routine 04/05/2011 1:08 PM EST ARTHROCENTESIS, ASPIRATION OR INJECTION, MAJOR JOINT OR BURSA, KNEE (WRVU 0.79) 04/05/2011 12:43 PM EST internal derangement left knee ARTHROSCOPY KNEE SYNOVECTOMY LIMITED (WRVU 6.45) 04/05/2011 12:43 PM EST internal derangement left knee documented in this encounter Results * SURGICAL PATHOLOGY REPORT (04/05/2011 2:14 PM EST) Surgical Pathology Report ? [facility] ? Provider: ?? JENNIFER ZHANG ?? Pt. Name: ?? ANDREA HAGAN ? Acc #: ?[id number] ?Pt. ? Col Date: ?? 04/05/2011 ? /Sex: ?2000,(10 years),Female ? Rec Date: ?? 04/05/2011 ? LOC: ?[facility] ? SURGICAL PATHOLOGY ? ---Pathologic Diagnosis--- ? Left knee synovium, excision ? Chronic nonspecific villous synovitis with hemosiderin. ? 04/07/11 ? [facility] ? 04/08/11 Verified by: ? Marsha Lord DO ? Pathologist ? (Electronic Signature) ? The attending pathologist whose signature appears on this report has ? reviewed all diagnostic slides and has edited the gross and/or ? microscopic portion of the report in rendering the final pathologic ? diagnosis. ? ---Microscopic Description--- ? Slides reviewed, microscopic description not recorded. ? Special stains are performed. ? Block ? Stain ? Result ( Positive / Negative ) ? A1 ?GMS ? Negative for fungus ? ---Gross Description--- ? Labeled/Fixative : ? Left knee synovium, fresh. ? Qty/Size/Weight: ?1.0 x 0.8 x 0.2 cm. ? Tissue Description: ?? Aggregate of pink and yellow soft tissue fragments. ? Sections/Process ing: ??(T1) ??aje/SNS ? ---Clinical Information--- ? Specimen Submitted: ? A - Left knee synovium ? Clinical History/Diagnosi s: ? Inflammatory disease left knee CERNER MILLENNIUM 04/05/2011 2:14 PM EST Jennifer Zhang MD PATHOLOGY/CYTOLOGY O DANIELE OSCAR FREGOSOIUM * Specimen to Pathology (surgical or derm) (04/05/2011 1:48 PM EST) AP Specimen 04/05/2011 1:48 PM EST 04/05/2011 1:48 PM EST Narrative CERNER MILLENNIUM - 04/05/2011 1:48 PM EST Specimen requisition ordered. ??Separate Pathology report to follow Jennifer Zhang MD PATHOLOGY/CYTOLOGY O DANIELE OSCAR HEREDIA * Cell Count Body Fluid (04/05/2011 1:08 PM EST) Body Fluid Source Knee, Left C ERNER MILLENNIUM Color, Fld Red CERNER MILLENNIUM Appearance, Fld Cloudy CERN ER MILLENNIUM Nucl Cell BF Ct 760 /mcl CERN ER MILLENNIUM Comment: Called by: JEFRY, Read back by: SSUY WILLETT_, Date/Time:_04/05/11 13:51. If Nucleated Cell Count equals zero, No Scan or Differential will be performed. If Nucleated Cell Count equals 1-5, Smear is scanned but no results are reported unless abnormalities are seen. If Nucleated Cell Count equals 6 or greater, Differential will be reported. Neutrophil BF 44 % CERNER MILLENNIUM Lymphocyte BF 46 % CERNER MILLENNIUM Macrophage BF 8 % CERNER MILLENNIUM Synovial BF 2 % CERNER MILLENNIUM Tot Diff Ct BF 200 Cells DAMEON Ty HEREDIA Body fluid specimen (specimen) 04/05/2011 1:08 PM EST 04/05/2011 1:16 PM EST Jennifer Zhang MD BODY FLUIDS AND STOO LS ORDERABLES OSCAR HEREDIA documented in this encounter Visit Diagnoses Diagnosis Knee pain Pain in joint, lower leg documented in this encounter Administered Medications Inactive Administered Medications - up to 3 most recent administrations Medication Order MAR Action Action Date Dose Rate Site HYDROmorphone (PF) (DILAUDID) 2 mg/mL injection 0.2-0.4 mg 0.2-0.4 mg, Intravenous, EVERY 5 MIN PRN, Starting on Mon04/05/11 at 1355, Until Mon04/05/11 at 1840, Pain, For moderate pain give: 0.2 mg every 5 minute prn For severe pain give: 0.4 mg every 5 minutes prn Maximum dose: 4 mg per hour Hold for respiratory rate less than 10 per minute., PACU Recovery, Routine Given 04/05/2011 2:30 PM EST 0.2 mg Given 04/05/2011 2:24 PM EST 0.2 mg OXYcodone (ROXICODONE) immediate release tablet 5 mg 5 mg (0.0842 mg/kg/dose), Oral, EVERY 4 HOURS PRN, Starting on Mon04/05/11 at 1407, Until Mon04/05/11 at 1840, Pain, Routine Given 04/05/2011 2:58 PM EST 5 mg documented in this encounter Active and Recently Administered Medications Times are shown in EST. PRN Medication Order 04/03/2011 04/04/2011 04/05/2011 ceFAZolin (ANCEF) injection (CANCELED) ONCE PRN, Starting on Mon04/05/11 at 1302, Until Mon04/05/11 at 1840, Intra-Operative (Intra-Procedure), Routine 1302 (Given - Provid er: Jennifer Zhang MD) epiNEPHrine (ADRENALIN) injection (CANCELED) ONCE PRN, Starting on Mon04/05/11 at 1329, Until 1/17/12 at 1840, Intra-Operative (Intra-Procedure), Routine 1329 (Given - Provid er: Jennifer Zhang MD - Comment: mixed with 50ml injectable saline and injected prior to surgical incision. 30ml total injected into left knee.) HYDROmorphone (PF) (DILAUDID) 2 mg/mL injection 0.2-0.4 mg (CANCELED) 0.2-0.4 mg, Intravenous, EVERY 5 MIN PRN, Starting on Mon04/05/11 at 1355, Until Mon04/05/11 at 1840, Pain, For moderate pain give: 0.2 mg every 5 minute prn For severe pain give: 0.4 mg every 5 minutes prn Maximum dose: 4 mg per hour Hold for respiratory rate less than 10 per minute., PACU Recovery, Routine 1424 (Given - Provid er: Ervin Kaur RN)1430 (Given - Provider: Ervin Kaur RN) OXYcodone (ROXICODONE) immediate release tablet 5 mg (CANCELED) 5 mg (0.0842 mg/kg/dose), Oral, EVERY 4 HOURS PRN, Starting on Mon04/05/11 at 1407, Until Mon04/05/11 at 1840, Pain, Routine 1458 (Given - Provid er: Ervin Kaur RN) documented in this encounter Care Teams Accounts Supervisor Relationship Specialty Start Date End Date Virginia Rick MD [address] [place] [address] PCP - General 04/27/10 07/16/15 documented as of this encounter
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
--- OUTSIDE RECORDS SUMMARY | 2023-12-15 02:24 | XMS_ITS | Encounter Summary ---
Author Organization [facility] Address [facility] [place] [address] Care Team Providers Care Hooker Up Name Role Phone Michelet Cramer MD Primary Care Provider [phone] Reason for Referral * Physical Therapy (Routine) - Complete - Patient Will Schedule External Appt Specialty Diagnoses / Procedures Referred By Contac t Referred To Contact Physical Therapy Diagnoses Traumatic patellofemoral subluxation Frankie Arvizu PA [address] [place] [address] Referral ID Status Reason Start Date Expiration Date Visits Requested Visits Authorized [id number] Complete - Patient Will Schedule External Appt Evaluate and Treat 05/03/2012 10/30/2012 20 20 Reason for Visit * Reason Comments Right Knee Pain Follup to Surgery Left Knee Pain Encounter Details Date Type Department Care Team (Latest Contact Info) Description 05/03/2012 12:25 PM EST Office [place] [address] Benito Zhang MD [facility] [place] [address] R knee arthroscopy, microfracture & medial patellar realignment procedure 02/12 Vicente (Primary Dx) Discharge Disposition: Home Social History [...] Sign Reading Time Taken Comments Blood Pressure 122/70 05/03/2012 12:50 PM EST Pulse - - Temperature - - Respiratory Rate - - Oxygen Saturation - - Inhaled Oxygen Concentration - - Weight 73.9 kg (163 lb) 05/03/2012 12:50 PM EST Height 148.1 cm (4' 10.3) 05/03/2012 12:[address] Body Mass Index 33.72 05/03/2012 12:50 PM EST Body Mass Index Percentile 99.54% 05/03/2012 12: 50 PM EST Growth Chart: [facility] (Girls, 2- 20 Years) documented in this encounter Progress Notes * Frankie Arvizu PA - 05/03/2012 12:50 PM EST PATIENT NAME: Samreen Martinez AGE: 11 y.o. MR#: [id number] DATE OF VISIT: 05/03/2012 Case Date: 02/13/2012 Surgeon: Surgeon(s) and Role: * BENITO ZHANG MD - Primary * LANE HUERTA MD Preoperative diagnosis: Loose body and dislocating patella right knee Postoperative diagnosis: Loose body and dislocating patella right knee Procedure(s): RIGHT KNEE ARTHROSCOPY KNEE REMOVE LOOSE BODY ARTHROTOMY, KNEE WITH EXPLORATION REPAIR DISLOCATING PATELLA MICROFRACTURE TROCHLEA STAFF: The patient was seen and the plan was formulated in conjunction with Dr. Zhang. CHIEF COMPLAINT: 11 weeks followup of the right knee arthrotomy, removal of loose body and repair of a dislocating patella. HISTORY OF PRESENT ILLNESS Ms. Martinez a 11 y.o. year old female comes into clinic today 11 weeks followup of the right knee arthrotomy, removal of loose body and repair of a dislocating patella. She reports that she is having pain over the knee and has been to the nurse several times for Tylenol, the last time was a week ago. She has been in the knee immobilizer at school until earlier this week. If she is more active she has more pain. She has had some swelling. The mother reports an infection to the surgical area about a month ago. She denies any swelling, redness or drainage from the wound. Pt's mother was present throughout the exam. Physical Exam Blood pressure 122/70, height 148.1 cm (4' 10.3), weight 73.936 kg (163 lb). Constitutional: oriented to person, place, and time and well-developed, well- nourished, and in no distress. Skin: Skin is warm and dry. Right Knee Exam Comments: her straight leg knee immobilizer brace has a visible metal bar. Minimal effusion. Her surgical incision appears thickened and scaly, well-healed without any signs of infection. She is nontender over the knee. She has no pain or signs of apprehension with patellar mobilization. Range of motion: She can come to 0?? extension and 130?? of flexion. She can do a straight leg raise without alag. ROM was not tested today. Patient with a negative anterior and posterior drawer. She is stable to varus and valgus stress testing to Normal sensation and motor function distally. ASSESSMENT/PLAN: The patient was seen and the plan was formulated in conjunction with Dr. Zhang. Samreen Martinez is a 11 y.o. female presents to the clinic 11 weeks follow- up of the above procedure. She can stop wearing her knee immobilizer brace and transition to her patella buttress brace.She should restart PT to work on an aggressive strengthening program continue to work on her core, quadriceps, abductor muscles, and a referral was provided today. Patient was also given letter allowing her to use the stairs at school, not be allowed to go to supinate in physical education until her strength improved, and not to play at recess until again her strength improves and the snow and ice. We would like to see her back in 3 months to evaluate her progress. documented in this encounter Plan of Treatment Scheduled Referrals Name Type Priority Associated Diagnoses Orde r Schedule Referral to Physical Therapy Outpatient Referral Routine R knee arthroscopy, microfracture & medial patellar realignment procedure 02/12 Vicente Ordered: 05/03/2012 documented as of this encounter Visit Diagnoses Diagnosis R knee arthroscopy, microfracture & medial patellar realignment procedure 02/12 Vicente- Primary Closed dislocation of patella documented in this encounter Care Teams Hooker Up Relationship Specialty Start Date End Date Michelet Cramer MD [address] [place] [address] PCP - General 04/27/10 07/16/15 documented as of this encounter
--- OUTSIDE RECORDS SUMMARY | 2023-12-15 02:24 | XMS_ITS | Encounter Summary ---
Author Organization [facility] Address [facility] [place] [address] Care Team Providers Care Gas Meter Prover Name Role Phone Michelet Cramer MD Primary Care Provider [phone] Encounter Details Date Type Department Care Team (Latest Contact Info) Description 11/22/2013 8:03 AM EDT - 11/22/2013 11:59 PM EDT Hospital Encounter XRay at [address] [place] [address] Right knee pain Social History Tobacco Use [...] KNEE DIAGNOSTIC 1 OR 2 VIEW Routine 11/22/2013 8:19 AM EDT Right knee pain documented in this encounter Results * XR knee diagnostic 1 or 2 view (11/22/2013 8:19 AM EDT) Anatomical Region Laterality Modality Knee N/A Radiographic Savana ging 11/22/2013 8:19 AM EDT Narrative 11/22/2013 9:13 AM EDT Examination KNEE 1 OR 2 VIEWS/RIGHT Clinical History 02/13/12 RT KNEE SCOPE Comparison January 12, 2012 Technique AP standing view of both knees, lateral view of the right knee. Findings The patient is skeletally immature. ??Well corticated ossicle seen adjacent to the right lateral femoral metaphysis is best seen on the frontal AP standing view. ??No knee effusion is seen. ?? Procedure Note Gaudencio Banks MD - 11/22/2013 Examination KNEE 1 OR 2 VIEWS/RIGHT Clinical History 02/13/12 RT KNEE SCOPE Comparison January 12, 2012 Technique AP standing view of both knees, lateral view of the right knee. Findings The patient is skeletally immature. Well corticated ossicle seen adjacentto the right lateral femoral metaphysis is best seen on the frontal APstanding view. No knee effusion is seen. Bneito Zhang MD IMG DX ORDERABLES documented in this encounter Visit Diagnoses Diagnosis Right knee pain Pain in joint, lower leg documented in this encounter Care Teams Gas Meter Prover Relationship Specialty Start Date End Date Michelet Cramer MD [address] [place] [address] PCP - General 04/27/10 07/16/15 documented as of this encounter
--- OUTSIDE RECORDS SUMMARY | 2023-12-15 02:24 | XMS_ITS | Encounter Summary ---
Author Organization [facility] Address [facility] [place] [address] Care Team Providers Care Epic Willow Analyst Name Role Phone Michelet Cramer MD Primary Care Provider [phone] Reason for Referral * Physical Therapy (Routine) - Complete - Patient Will Schedule External Appt Specialty Diagnoses / Procedures Referred By Contac t Referred To Contact Physical Therapy Diagnoses Traumatic patellofemoral subluxation Frankie Arvizu PA [address] [place] [address] Referral ID Status Reason Start Date Expiration Date Visits Requested Visits Authorized [id number] Complete - Patient Will Schedule External Appt Evaluate and Treat 02/23/2012 08/21/2012 20 20 Reason for Visit * Reason Comments Follow Up Surgery S/P RIGHT KNEE SCOPE DOS 02/13/12 Encounter Details Date Type Department Care Team (Latest Contact Info) Description 02/23/2012 9:30 AM EST Office [place] [address] Benito Zhang MD [facility] [place] [address] R knee arthroscopy, microfracture & medial patellar [...] Sign Reading Time Taken Comments Blood Pressure 122/82 02/23/2012 10:02 AM EST Pulse 86 02/23/2012 10:02 AM EST Temperature 36.5 ??C (97.7 ??F) 02/23/2012 1 0:02 AM EST Respiratory Rate - - Oxygen Saturation - - Inhaled Oxygen Concentration - - Weight 69.4 kg (153 lb) 02/23/2012 10:0 2 AM EST VERBAL ON CRUTCHES AND BRACE Height 149.9 cm (4' 11) 02/23/2012 10: 02 AM EST Body Mass Index 30.9 02/23/2012 10:02 AM EST Body Mass Index Percentile 98.82% 02/22 10:02 AM EST Growth Chart: [facility] (Girls, 2- 20 Years) documented in this encounter Progress Notes * Frankie Arvizu PA - 02/23/2012 10:21 AM EST PATIENT NAME: Samreen Martinez AGE: 11 y.o. MR#: [id number] DATE OF VISIT: 02/23/2012 Case Date: 02/13/2012 Surgeon: Surgeon(s) and Role: [...] in conjunction with Dr. Zhang. CHIEF COMPLAINT: 10 day follow-up of the above procedure HISTORY OF PRESENT ILLNESS Ms. Martinez a 11 y.o. year old female comes into clinic today for 10 day follow-up of the above procedure. She reports that she is doing well without any complaints today. She denies any swelling, redness or drainage from the wound. Pt's mother was present throughout the exam. Physical Exam Blood pressure 122/82, pulse 86, temperature 36.5 ??C (97.7 ??F), height 149.9 cm (4' 11), weight 69.4 kg (153 lb). Constitutional: oriented to person, place, and time and well-developed, well- nourished, and in no distress. Skin: Skin is warm and dry. Right Knee Exam Comments: Comes in wearing a straight leg knee immobilizer brace. Mild effusion. Her surgical incisions appear well-healed without any signs of infection. ROM was not tested today Normal sensation and motor function distally. ASSESSMENT/PLAN: The patient was seen and the plan was formulated in conjunction with Dr. Zhang. Samreen Martinez is a 11 y.o. female presents to the clinic 10 day follow-up of the above procedure. We reviewed with Samreen and her mother her arthroscopy pictures and her surgery. She will advance to full weight bearing. She will continue to wear knee immobilizer brace while she is at school. She was also fit for a patella buttress brace that she can use during PT and when she is not at school. We referred her to PT to start with ROM and strengthening of the abductors, quads and core. We would like to see her back in 4-6 weeks to evaluate her progress. documented in this encounter Plan of Treatment Scheduled Referrals Name Type Priority Associated Diagnoses Orde r Schedule Referral to Physical Therapy Outpatient Referral Routine R knee arthroscopy, microfracture & medial patellar realignment procedure 02/12 Vicente Ordered: 02/23/2012 documented as of this encounter Visit Diagnoses Diagnosis R knee arthroscopy, microfracture & medial patellar realignment procedure 02/12 Vicente- Primary Closed dislocation of patella documented in this encounter Care Teams Epic Willow Analyst Relationship Specialty Start Date End Date Michelet Cramer MD [address] [place] [address] PCP - General 04/27/10 07/16/15 documented as of this encounter
--- OUTSIDE RECORDS SUMMARY | 2023-12-15 02:24 | XMS_ITS | Encounter Summary ---
Author Organization [facility] [address] Care Team Providers Care Chemical Cell Changer Name Role Phone Virginia Cramer MD Primary Care Provider [phone] Encounter Details Date Type Department Care Team (Late st Contact Info) Description 12/16/2010 12:00 PM EDT - 12/16/2010 3:58 PM EDT [place] [id number] Brendan Navarro MD [facility] [place] [address] PATELLAR REALIGNMENT ([employer] 10.52) Social History Tobacco Use Types Packs/Day Years [...] Sign Reading Time Taken Comments Blood Pressure 105/56 12/17/2010 11:40 AM EDT Pulse 81 12/17/2010 11:40 AM EDT Temperature 36.7 ??C (98.1 ??F) 12/17/2010 11:40 AM E DT Respiratory Rate 18 12/17/2010 11:40 AM EDT Oxygen Saturation 98% 12/17/2010 11:40 AM EDT Inhaled Oxygen Concentration - - [...] Contact Information: Your orthopaedic surgeon:Dr. Kevin MD: [phone] If it is after 5:00PM on a weekday or a weekend and it is of an urgent nature please call [phone] and ask for the on-call orthopaedic resident. [...] as of this encounter Progress Notes * Zoey Abraham RN - 12/17/2010 3:40 PM EDT Office of Care Management(OCM)/Clinical Shellfish Sorter(CRC)Initial Assessment O: Reviewed chart. Introduced self to [...] to admission:none : VIRGINIA CRAMER MD @PCPADD@ [phone] [place] Family supports:parents/step parents School/development issues:5th grade [...] KNEE, DIAGNOSTIC performed by BRENDAN NAVARRO at [facility] OR ??? Apply long leg cast 08/31/2010 CAST APPLICATION, LONG LEG (THIGH TO TOES) performed by BRENDAN NAVARRO at [facility] OR ??? Knee scope, shave articular cart 08/31/2010 ARTHROSCOPY KNEE CHONDROPLASTY performed by BRENDAN NAVARRO at [facility] OR ??? Knee scope, drill oste diss+int fix 08/31/2010 ARTHROSCOPY KNEE, DRILLING & FIXATION OF OCD performed by BRENDAN NAVARRO at [facility] OR ??? Fix unstable patella, exten realign 12/16/2010 PATELLAR REALIGNMENT performed by BRENDAN NAVARRO at [facility] OR ??? Knee scope, remv loose body 12/16/2010 ARTHROSCOPY KNEE REMOVE LOOSE BODY performed by JENNIFER ZHANG at [facility] OR ??? Knee scope, abrasn arthroplasty 12/16/2010 ARTHROSCOPY KNEE, MULTIPLE DRILLING, MICROFRACTURE performed by JENNIFER ZHANG at [facility] OR ??? Apply long leg cast 12/16/2010 CAST APPLICATION, LONG LEG (THIGH TO TOES) performed by JENNIFER ZHANG at [facility] OR Interval History: There are no hospital problems to display for this patient. Social History: Home Living Type of Home: House Home Layout: Stairs to enter w/ rails (2 railings reportedly close enough to use both at one time) Home Equipment: Crutches Prior Function Level of Dana: Independent with ADLs and functional transfers Lives [...] with increased distance. Pt's mother is a RAIL OPERATIONS CONTROLLER. Discussed NWB gait on stairs. Pt's mother did not feel it was necessary to practice stairs before disch 2/2 help at home and pt's experience on stairs. Pt will not need to use stairs when she goes back to school Goals: Safe disch plans Plan: Pt to be disch home with family today. Pager:[phone] SIMI JIN, PT 12/17/2010 Physical Therapy Rehabilitation [...] EDT Pt states pain better, Pt given ACETYLENE GAS COMPRESSOR and inst on use documented in this [...] ??? Sulfa (Sulfonamide Antibiotics) Social: Lives in [facility] with mom PE: NAD Heart: RRR, No [...] Operative Note Patient Name: Noris Martinez : [id number] MR#: [id number] Case Date: 12/16/2010 Surgeon: Surgeon(s) and Role: [...] all times for balance and protection. The ACETYLENE GAS COMPRESSOR was discontinued on POD#1 and the patient [...] Contact Information: Your orthopaedic surgeon:Dr. Kevin MD: [phone] If it is after 5:00PM on a weekday or a weekend and it is of an urgent nature please call [phone] and ask for the on-call orthopaedic resident. General Instructions None Future Appointments and Orders Future Appointments: Provider: Department: Dept Phone: Center: 12/31/2010 1:40 PM Brendan Navarro MD [facility] Orthopaedics 3a [phone] [facility] Provider Contact Information: Primary Care Provider: VIRGINIA CRAMER MD [phone] Hospital Attending: Brendan Navarro MD Department of Orthopaedic Surgery Pediatrics: [phone] For questions regarding this document or issues relating to this hospitalization on the Medical Service, please contact your inpatient physician through the [facility] . Issues afterhours and on weekends will be handled by the Hospitalist staff on-call. Signed: RYLAN GUAMAN MD 12/17/2010 * Plan of Care - Kika Salinas RN - 12/17/2010 6:10 AM EDT Problem: Pain, Acute (Pediatric) Intervention: Acute Pain: Related Risk Factors (Pediatric) S/O: Pain control adequate with ACETYLENE GAS COMPRESSOR Morphine and scheduled tylenol 1-08/27. Stood at bedside with crutches NWB left [...] Zhao MD - 12/16/2010 4:00 PM EDT [facility] Operative Note Patient Name: Noris Martinez : [id number] MR#: [id number] Case Date: 12/16/2010 Surgeon: Surgeon(s) and Role: [...] is a 10-year-old female who presented to [facility] with left knee pain. She was found [...] was administered. A time-out was performed per [facility] protocol and preoperative antibiotics were administered. First, [...] 2:34 PM EDT) Surgical Pathology Report [id number] ? Location: [place]; [facility]; A The signing pathologist has (i) examined [...] MD PATHOLOGY/CYTOLOGY O DANIELE Performing Organization Address [facility] de Phone Number OSCAR HEREDIA * Specimen to Pathology (surgical or derm) (12/16/2010 2:10 PM EDT) AP Specimen 12/16/2010 2:10 PM EDT 12/16/2010 2:10 PM EDT Narrative OSCAR FREGOSOIUM - 12/16/2010 2:10 PM EDT Specimen requisition ordered. ??Separate Pathology report to follow Jennifer Zhang MD PATHOLOGY/CYTOLOGY O DANIELE Performing Organization Address [facility] de Phone Number OSCAR HEREDIA * Specimen to Pathology (surgical or derm) (12/16/2010 2:10 PM EDT) AP Specimen 12/16/2010 2:10 PM EDT 12/16/2010 2:10 PM EDT Narrative OSCAR HARPERENNIUM - 12/16/2010 2:10 PM EDT Specimen requisition ordered. ??Separate Pathology report to follow Jennifer Zhang MD PATHOLOGY/CYTOLOGY O DANIELE Performing Organization Address [facility] de Phone Number OSCAR HEREDIA documented in [...] 10:00 PM EDT 1,000 mg 100 mL/hr ceFAZolin (ANCEF) 1g in dextrose 5% 50mL 1,000 mg (17.2 mg/kg/dose), Intravenous, ONCE, 1 dose, On Emma 12/16/10 at 1245, Administer over 30 Minutes, To be administered upon arrival to the OR within one hour prior to incision., Day of Surgery (Day of Procedure) Given 12/16/2010 1:02 PM EDT 1 g docusate sodium (COLACE) capsule 150 mg 150 [...] 80 mL/hr 80 mL/hr morphine 1 mg/mL ACETYLENE GAS COMPRESSOR 30 mL Intravenous, ACETYLENE GAS COMPRESSOR ONLY, Starting on Emma 12/16/10 at 1730, Until Mon12/17/10 at 0706, LOADING DOSE (0-4 mg): 0, ACETYLENE GAS COMPRESSOR DOSE (0.5-1.5 mg): .5, LOCKOUT INTERVAL (5-20 minutes): 6, CONTINUOUS Infusion Rate (for opioid tolerant patients only): 0, FOUR HOUR DOSE LIMIT (5-30 mg): 20 Rate/Dose Verify 12/16/2010 6:47 PM EDT mL/hr Rate/Dose Verify 12/16/2010 6:46 PM EDT mL/hr New Syringe/Cartridge 12/16/2010 5:30 PM EDT mL /hr morphine 2 mg/mL carpuject 0.5 mg 0.5 mg (0.62869 mg/kg/dose), Intravenous, EVERY 10 MIN PRN, Starting [...] hours, Routine 1903 (Given - Provider: Cherelle Caldwell RN) 0023 (Given - Provider: Kika Salinas RN)0417 (Given - Provider: Kika Salinas RN)0800 (Given - Provider: Cherelle Caldwell RN)1200 (Given - Provider: Cherelle Caldwell RN) ceFAZolin (ANCEF) 1g in dextrose 5% [...] Routine 1107 (Given - Provid er: Cherelle Calwdell RN - Comment: awaited dose from Pharmacy) Continuous Medication Order 12/15/2010 12/16/2010 12/17/2010 lactated ringers infusion (CANCELED) 80 mL/hr, Intravenous, CONTINUOUS, Starting on Emma 12/16/10 at 1730, Until Mon12/17/10 at 0706 1728 (New Bag - Provider: Og Escobedo, RN) morphine 1 mg/mL ACETYLENE GAS COMPRESSOR 30 mL (CANCELED) Intravenous, ACETYLENE GAS COMPRESSOR ONLY, Starting on Emma 12/16/10 at 1730, Until Mon12/17/10 at 0706, LOADING DOSE (0-4 mg): 0, ACETYLENE GAS COMPRESSOR DOSE (0.5-1.5 mg): .5, LOCKOUT INTERVAL (5-20 minutes): 6, CONTINUOUS Infusion Rate (for opioid tolerant patients only): 0, FOUR HOUR DOSE LIMIT (5-30 mg): 20 1730 (New Syringe/Cartridge - Provider: Og Escobedo RN)1846 (Rate/Dose Verify - Provider: Cherelle Caldwell RN - Comment: with AM)1847 (Rate/Dose Verify - Provider: Cherelle Caldwell RN [...] Recovery, Routine 1611 (Given - Provider: Yoana Bryant RN)1621 (Given - Provider: Yoana Bryant, RN)1637 (Given - Provider: Yoana Bryant RN) morphine 2 mg/mL carpuject 0.5 mg (CANCELED) 0.5 mg (0.31210 mg/kg/dose), Intravenous, EVERY 10 MIN PRN, Starting on Emma 12/16/10 at 1651, Until Emma 12/16/10 at 1802, Pain, resp rate >8/min, PACU Recovery, Routine 1709 (Given - Provider: Og Escobedo RN)1723 (Given - Provider: Og Escobedo RN) OXYcodone (ROXICODONE) immediate release tablet 5 mg 5 mg (0.1 mg/kg/dose ? 58.2 kg), Oral, EVERY 4 HOURS PRN, Starting on Emma 12/16/10 at 1818, Until Mon12/17/10 at 1600, Pain, Routine 0914 (Given - Provid er: Cherelle Caldwell RN)1315 (Given - Provider: Cherelle Caldwell RN) documented in this encounter Care Teams Chemical Cell Changer Relationship Specialty Start Date End Date Virginia Cramer MD [address] [place] [address] PCP - General 04/27/10 07/16/15 documented as of this encounter
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
--- OUTSIDE RECORDS SUMMARY | 2023-12-15 02:24 | XMS_ITS | Encounter Summary ---
Author Organization [facility] Address [facility] [place] [address] Care Team Providers Care Skin Specialist Name Role Phone Michelet Cramer MD Primary Care Provider [phone] Reason for Visit * Reason Comments Left Knee Pain Left Knee Scope DOS 04/05/11 Encounter Details Date Type Department Care Team (Late st Contact Info) Description 04/14/2011 10:05 AM EST Office [place] [address] Benito Zhang MD [facility] [place] [address] Effusion of knee joint (Primary Dx) Discharge Disposition: Home Social History [...] Sign Reading Time Taken Comments Blood Pressure 100/60 04/14/2011 11:19 AM EST Pulse 70 04/14/2011 11:19 AM EST Temperature - - Respiratory Rate - - Oxygen Saturation - - Inhaled Oxygen Concentration - - Weight 60.8 kg (134 lb) 04/14/2011 11:19 AM EST Height 142.2 cm (4' 8) 04/14/2011 11:19 AM EST Body Mass Index 30.04 04/14/2011 11:19 AM EST Body Mass Index Percentile 99.01% 04/14/2011 11: 19 AM EST Growth Chart: CDC (Girls, 2- 20 Years) documented in this encounter Progress Notes * Zoey Cuadra, RN - 04/14/2011 5:20 PM EST Subjective: Patient ID: Samreen Martinez is a 10 y.o. female. HPI Patient doing well. Her with mother and her significant other. No fever or chills. ROS Objective: Physical Exam Left Knee Exam Swelling: None Effusion: No Tenderness None Range of Motion Extension: 0 Flexion: 130 Tests Patellar Apprehension: No Comments: No calf tenderness. Sutures removed and steristrips applied. Neurologic Exam Assessment and Plan: Doing well after arthroscopy and synovectomy We discussed the findings and I reviewed the intraop pictures with them. We will discuss with Dr. Call as they have an appointment wit her already scheduled. I have advised them that I would be happyto follow them in my clinic. We will limit her from impact activity and I think this is for the rest of her school career. We discussed swimming and maintenance of appropriate weight. We would see her in 6 mos for a recheck. They know to call with questions. documented in this encounter Plan of Treatment Not on file documented as of this encounter Visit Diagnoses Diagnosis Effusion of knee joint- Primary Effusion of lower leg joint documented in this encounter Care Teams Skin Specialist Relationship Specialty Start Date End Date Michelet Cramer MD [address] [place] [address] PCP - General 04/27/10 07/16/15 documented as of this encounter
--- OUTSIDE RECORDS SUMMARY | 2023-12-15 02:24 | XMS_ITS | Encounter Summary ---
Author Organization [facility] [place] [address] Care Team Providers Care Reference Data Expert Name Role Phone Michelet Cramer MD Primary Care Provider [phone] Reason for Visit * Reason Onset Date Comments Physical Therapy 03/18/2011 Encounter Details Date Type Department Care Team (Late st Contact Info) Description 03/18/2011 Telephone [place] [id number] Elizabeth Hernandez RN Physical Therapy Social History Tobacco Use Types [...] Telephone Encounter - Elizabeth Hernandez RN - 03/18/2011 11:43 AM EST Kasie from PT called wondering if she could be cleared for stairs. Reviewed with Krishna Fisher who approved stair work. This was relayed to PT documented in this encounter Plan of Treatment Not on file documented as of this encounter Visit Diagnoses Not on filedocumented in this encounter Care Teams Reference Data Expert Relationship Specialty Start Date End Date Michelet Cramer MD [address] [place] [address] PCP - General 04/27/10 07/16/15 documented as of this encounter
--- OUTSIDE RECORDS SUMMARY | 2023-12-15 02:24 | XMS_ITS | Encounter Summary ---
Author Organization [facility] Address [facility] [place] [address] Care Team Providers Care Dramatic Agent Name Role Phone Michelet Cramer MD Primary Care Provider [phone] Encounter Details Date Type Department Care Team (Late st Contact Info) Description 03/09/2011 Orders [place] [address] Benito Zhang MD [facility] [place] [address] Knee pain (Primary Dx) Social History Tobacco Use Types [...] of this encounter Visit Diagnoses Diagnosis Knee pain- Primary Pain in joint, lower leg documented in this encounter Care Teams Dramatic Agent Relationship Specialty Start Date End Date Michelet Cramer MD [address] [place] [address] PCP - General 04/27/10 07/16/15 documented as of this encounter
--- OUTSIDE RECORDS SUMMARY | 2023-12-15 02:24 | XMS_ITS | Encounter Summary ---
Author Organization [facility] [place] [address] Care Team Providers Care Tester Equipment Name Role Phone Virginia Cramer MD Primary Care Provider [phone] Encounter Details Date Type Department Care Team (Late st Contact Info) Description 04/05/2011 1:28 PM EST - 04/05/2011 2:56 PM EST [place] [id number] Jennifer Zhang MD [facility] [place] [address] ARTHROSCOPY KNEE SYNOVECTOMY LIMITED (WRVU 6.45) Social History Tobacco Use Types Packs/Day Years [...] Taken Comments Blood Pressure - - Pulse 87 04/05/2011 2:45 PM EST Temperature 36.1 ??C (97 ??F) 04/05/2011 2:06 PM EST Respiratory Rate 22 04/05/2011 2:45 PM EST Oxygen Saturation 100% 04/05/2011 2:45 PM EST Inhaled Oxygen Concentration - - [...] soreness, which usually goes away in 12-24hours. [facility] - Information Same Day Surgery * [...] Information: Your orthopaedic surgeon:Jennifer Zhang MD: Sports: [phone] If it is after 5:00PM on a weekday or a weekend and it is of an urgent nature please call [phone] and ask for the on-call orthopaedic resident. Your Primary Care Physician: VIRGINIA CRAMER MD [phone] documented in this encounter Medications at Time [...] 04/04/2011 8:49 PM EST H&P from VIRGINIA CRAMER MD on 2011 that is scanned into [...] Kane Chu - 04/05/2011 3:16 PM EST [facility] Operative Note Department of Orthopaedics Patient Name: [...] in the preoperative holding area and green upper sioux was placed by Dr. Zhang on the left knee. The patient was brought to the operating room by the anesthesia staff. A time-out was held according to [facility] universal protocol. The knee was then prepped [...] Operative Note Patient Name: Andrea Hagan : [id number] MR#: [id number] Case Date: 04/05/2011 Surgeon: Surgeon(s) and Role: [...] 2:14 PM EST) Surgical Pathology Report ? [facility] ? Provider: ?? JENNIFER ZHANG ?? Pt. Name: ?? ANDREA HAGAN ? Acc #: ?[id number] ?Pt. ? Col Date: ?? 04/05/2011 ? /Sex: ?2000,(10 years),Female ? Rec Date: ?? 04/05/2011 ? LOC: ?[facility] ? SURGICAL PATHOLOGY ? ---Pathologic Diagnosis--- ? Left knee synovium, excision ? Chronic nonspecific villous synovitis with hemosiderin. ? 04/07/11 ? [facility] ? 04/08/11 Verified by: ? Pop DOW, Marsha Mahajan ? Pathologist ? (Electronic Signature) ? The [...] EST Jennifer Zhang MD PATHOLOGY/CYTOLOGY O DANIELE Performing Organization Address City/State/[facility] Co de Phone Number CERDOUG HARPERENNIUM * Specimen to Pathology (surgical or derm) (04/05/2011 1:48 PM EST) AP Specimen 04/05/2011 1:48 PM EST 04/05/2011 1:48 PM EST Narrative CERNER MILLENNIUM - 04/05/2011 1:48 PM EST Specimen requisition ordered. ??Separate Pathology report to follow Jennifer Zhang MD PATHOLOGY/CYTOLOGY O DANIELE Performing Organization Address City/[facility] Co de Phone Number CERDOUG FREGOSOIUM * Cell Count Body Fluid (04/05/2011 1:08 PM EST) Body Fluid Source Knee, Left C ERNER MILLENNIUM Color, Fld Red CERNER MILLENNIUM Appearance, Fld Cloudy CERN ER MILLENNIUM Nucl Cell BF Ct 760 /mcl CERN ER MILLENNIUM Comment: Called by: JEFRY, Read back by: SUSY WILLETT_, Date/Time:_04/05/11 13:51. If Nucleated Cell Count [...] Tot Diff Ct BF 200 Cells DAMEON R MILLENNIUM Body fluid specimen (specimen) 04/05/2011 1:08 PM EST 04/05/2011 1:16 PM EST Jennifer Zhang MD BODY FLUIDS AND KIT GREGORY ORDERABLES OSCAR LEROYHÉCTOR documented in this encounter Visit Diagnoses Not on filedocumented in this encounter Administered Medications Inactive Administered Medications - up to 3 most recent administrations Medication Order MAR Action Action Date Dose Rate Site ceFAZolin (ANCEF) injection ONCE PRN, Starting on Mon04/05/11 at 1302, Until Mon04/05/11 at 1840, Intra-Operative (Intra-Procedure), Routine Given 04/05/2011 1:02 PM EST 1 g epiNEPHrine (ADRENALIN) injection ONCE PRN, Starting on Mon04/05/11 at 1329, Until Mon04/05/11 at 1840, Intra-Operative (Intra-Procedure), Routine Given 04/05/2011 1:29 PM EST 0.25 mLs 19- Surgical Site HYDROmorphone (PF) (DILAUDID) 2 mg/mL injection [...] PRN, Starting on Mon04/05/11 at 1329, Until Mon04/05/11 at 1840, Intra-Operative (Intra-Procedure), Routine 1329 (Given [...] RN) documented in this encounter Care Teams Tester Equipment Relationship Specialty Start Date End Date Virginia Cramer MD [address] [place] [address] PCP - General 04/27/10 07/16/15 documented as of this encounter
--- OUTSIDE RECORDS SUMMARY | 2023-12-15 02:24 | XMS_ITS | Encounter Summary ---
Author Organization [facility] Address [facility] [place] [address] Care Team Providers Care Fire And Safety Helper Name Role Phone Michelet Cramer MD Primary Care Provider [phone] Reason for Visit * Reason Comments Left Knee Pain PATELLAR REALIGNMENT Encounter Details Date Type Department Care Team (Late st Contact Info) Description 03/02/2011 2:20 PM EST [place] [id number] Cole Brown MD [facility] [place] [address] Effusion of knee joint (Primary Dx) Discharge [...] Time Taken Comments Blood Pressure 98/70 03/02/2011 2:41 PM EST Pulse - - Temperature - - Respiratory Rate - - Oxygen Saturation - - Inhaled Oxygen Concentration - - Weight 59 kg (130 lb) 03/02/2011 2:41 PM EST Height 142.2 cm (4' 8) 03/02/2011 2:41 PM EST Body Mass Index 29.15 03/02/2011 2:41 PM EST Body Mass Index Percentile 98.72% 03/02/2011 2:4 1 PM EST Growth Chart: CDC (Girls, 2- 20 Years) documented in this encounter Progress Notes * Keagan Fisher MD - 03/03/2011 9:43 AM EST DATE OF VISIT: 03/02/2011 HISTORY OF PRESENT ILLNESS: Samreen is a 10-year-old female who has a diagnosis of potential AIDAN with 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 She has been transitioned out of her cast and into a patellar stabilizing brace with crutch support. Her pain is graduallyimproving as is her range of motion. She continues to have some pain and recently had an incident with direct contact to her knee with significant pain. She denies any instability or pain uncontrolled on her current pain medication regimen of naproxen and tylenol. PHYSICAL EXAMINATION: This reveals healthy looking young lady who is in no distress. She does have an antalgic gait to that side. Her left knee continues to have a significant effusionthat is present anterior and in popliteal fossa. Her ecchymoses is improved without any acute skin injury however she continues to have some diffuse swelling of the left lower extremity. Her patella tracks well without subluxation or instability. She does have mild tenderness to palpation of the medial and lateral joint space. ROM is full ext to approx 95deg flexion that continues yina painless. Incisions are well healed; df/pf/ehl intact with all derm. Dist intact to light touch.Palp dp pulse. 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 Patient is slowly improving. She will continue to be weight bearing as tolerated. We will get a dean of girls weight smaller patellar stabilizing brace today that she can wear when mobilizing. SHe can begin PT with gait training and ROM/hamstring strengthening. She will also be seen by dr dick in reference to a repeat arthroscopic examination of the knee. She will see dr cuellar today in reference to her synovitis that is chronic in nature. We will see her back in several months to re-evaluate. Patient seen with attending staff. I have seen the patient and reviewed the resident's above history and I agree with the details as written. Theassessment and plan were formulated in discussion with me and I agree with them as documented. Cole Brown M.D. Department of Orthopaedics [facility] NPI # [id number] [place] [id number] * Cole Brown MD - 03/02/2011 2:14 PM EST documented in this encounter Plan of Treatment Not on file documented as of this encounter Visit Diagnoses Diagnosis Effusion of knee joint- Primary Effusion of lower leg joint documented in this encounter Care Teams Fire And Safety Helper Relationship Specialty Start Date End Date Michelet Cramer MD [address] [place] [address] PCP - General 04/27/10 07/16/15 documented as of this encounter
--- OUTSIDE RECORDS SUMMARY | 2023-12-15 02:24 | XMS_ITS | Encounter Summary ---
Author Organization [facility] [place] [address] Care Team Providers Care Upholstery Sewer Name Role Phone Michelet Cramer MD Primary Care Provider [phone] Reason for Visit * Reason Comments Cast Repair Encounter Details Date Type Department Care Team (Late st Contact Info) Description 12/22/2010 9:00 AM EDT Office [place] [id number] CLINIC, [facility] Cast discomfort (Primary Dx) Discharge Disposition: Home Social History [...] on file documented as of this encounter Progress Notes * Fam Cerda - 12/22/2010 11:11 AM EDT Samreen presents to the clinic today for a cast repair. The Pt's cast was repaired. Fiberglass was applied. Pt tolerated the procedure well. Pt was given instruction for cast care And was given instruction to call the nurse with any concerns or questions documented in this encounter Plan of Treatment Not on file documented as of this encounter Visit Diagnoses Diagnosis Cast discomfort- Primary Other orthopedic aftercare documented in this encounter Care Teams Upholstery Sewer Relationship Specialty Start Date End Date Michelet Cramer MD [address] [place], [place] [id number] PCP - General 04/27/10 07/16/15 documented as of this encounter
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
--- OUTSIDE RECORDS SUMMARY | 2023-12-15 02:24 | XMS_ITS | Encounter Summary ---
Author Organization [facility] [place] [address] Care Team Providers Care Hemstitcher Name Role Phone Michelet Cramer MD Primary Care Provider [phone] Encounter Details Date Type Department Care Team (Late st Contact Info) Description 04/05/2011 12:55 PM EST Anesthesia Event [place] [address] Sahil Cope MD [facility] [place] [address] Anesthesia Record Procedure Summary Procedure Name Responsible Anesthesiologist Anesthesia Start Time Anesthesia Stop Time ARTHROSCOPY KNEE SYNOVECTOMY LIMITED (WRVU 6.45) (Left: Knee) Sahil Cope MD 04/05/11 1255 04/05/11 1408 Events Date Time Event Comment 04/05/2011 1235 1255 Start 1408 Stop Meds * Agents No agents on [...] 1715 by Jenna Anders Incision 04/05/11; knee; 10/19 12/09 (LDA cleanup utility RA#[id number]); 1715 (LDA cleanup utility RA#[id number]) 04/05/11 0000 by Anisa Lyn RN 11/15/21 1715 by Jenna Anders (RETIRED) Peripheral IV Line - Single Lumen 04/05/11; 1223; 04/05/11; 1518 04/05/11 1223 by Ervin Kaur RN 04/05/11 1518 by Ervin Kaur RN documented in this encounter Social History [...] OR Notes * Anesthesia Postprocedure Evaluation - Sahil Cope MD - 04/05/2011 3:37 PM EST Patient: Samreen Martinez Procedure(s) Performed: ARTHROSCOPY KNEE SYNOVECTOMY LIMITED; ARTHROCENTESIS, ASPIRATION OR INJECTION, MAJOR JOINT OR BURSA, KNEE Patient location: [facility] Post-op pain: Adequate analgesia Post-op nausea: no nausea or vomiting Last Vitals: Filed Vitals: 04/05/11 1500 Pulse: 84 Temp: Resp: 22 Post-op cardiovascular and respiratory status: is stable Level of consciousness: awake Complications: no apparent complications Fluid Status: normal * Anesthesia Preprocedure Evaluation - Sahil Cope MD - 04/05/2011 12:29 PM EST Anesthesia Evaluation No hx of anesthetic complications Airway Mallampati: II TM distance: <3 FB Neck ROM: full Dental Pulmonary - negative ROS Cardiovascular - negative ROS Neuro/Psych - negative ROS GI/Hepatic/Renal Comments: Obesity Endo/Other Comments: Left knee injury with prior arthroscopies, needed after injury in past.. To have synovectomy today. Possible AIDAN. Abdominal (+) obesity, Anesthesia Plan ASA 2 General with intravenous induction GA with IV induction discussed with mother and stepmother, and the patient, as she has had in the past. The mother provided legal consent. The stepmother and patient assented. Anesthetic plan and risks discussed with patient and mother. Plan discussed with SHIPPING AND RECEIVING SUPERVISOR. documented in this encounter Miscellaneous Notes * Addendum Note - Selena Ma - 04/05/2011 5:26 PM EST Addendum created 04/05/11 1726 by Selena Ma Modules edited:Anesthesia Events, Anesthesia Responsible Staff documented in this encounter Plan of Treatment Not on file documented as of this encounter Visit Diagnoses Not on filedocumented in this encounter Care Teams Hemstitcher Relationship Specialty Start Date End Date Michelet Cramer MD [address] [place] [address] PCP - General 04/27/10 07/16/15 documented as of this encounter
--- OUTSIDE RECORDS SUMMARY | 2023-12-15 02:24 | XMS_ITS | Encounter Summary ---
Author Organization [facility] Address [facility] [place] [address] Care Team Providers Care Bakery Technician Name Role Phone Michelet Cramer MD Primary Care Provider [phone] Encounter Details Date Type Department Care Team (Late st Contact Info) Description 03/03/2011 Telephone Pediatric Rheumatology at [facility] [place] [address] MD [facility] [address] [place] [address] Social History Tobacco Use Types Packs/Day Years [...] encounter Miscellaneous Notes * Telephone Encounter - Clare Way MD - 03/03/2011 4:43 PM EST I tried to reach Samreen's mother with her labs. I got voice mail. I left a message that her resultswere good. I left our number to call with any questions. documented in this encounter Plan of Treatment Not on file documented as of this encounter Visit Diagnoses Not on filedocumented in this encounter Care Teams Bakery Technician Relationship Specialty Start Date End Date Michelet Cramer MD [address] [place] [address] [place] [address] PCP - General 04/27/10 07/16/15 documented as of this encounter
--- OUTSIDE RECORDS SUMMARY | 2023-12-15 02:24 | XMS_ITS | Encounter Summary ---
Author Organization [facility] [place] [address] Care Team Providers Care Technical Director Name Role Phone Michelet Cramer MD Primary Care Provider [phone] Encounter Details Date Type Department Care Team (Latest Contact Info) Description 11/30/2010 12:56 PM EDT - 11/30/2010 11:59 PM EDT Hospital Encounter MRI at [facility] [place] [id number] Effusion of knee joint, left; Effusion of knee joint Social History Tobacco Use Types Packs/Day Years [...] and supper. 30 tablet 3 01/05/2011 03/02/2011 documented as of this encounter Plan of Treatment Not on file documented as of this encounter Procedures Procedure Name Priority Date/Time Associated Diagnosis Comments MRI KNEE WO CONTRAST Routine 11/30/2010 1:48 PM EDT Effusion of knee joint, left Effusion of knee joint documented in this encounter Results * MRI knee WO contrast (11/30/2010 1:48 PM EDT) Anatomical Region Laterality Modality Knee Magnetic Resonan ce 11/30/2010 1:48 PM EDT Impressions 12/01/2010 10:13 AM EDT IMPRESSION: 1. Postsurgical changes of femoral biopsy and articular cartilage repair with increased irregularity, bone marrow edema, and perisoteal bone formation. Decreased joint effusion and periosteal bone formation is suggestive of healing, although bone marrow edema may represent residual inflammation. ?? 2. Prepatellar soft tissue edema. ?? 3. Multiple intra-articular bodies, the largest is a 10 mm body within the lateral joint space. ?? Film and interpretation reviewed by the attending Narrative 12/01/2010 10:13 AM EDT MRI OF THE LEFT KNEE, 11/30/10: ?? CLINICAL HISTORY: ??Status post left knee arthroscopy. Additional clinical history obtained from the electronic medical record includes ongoing left knee pain and swelling with possible inflammatory arthropathy. ?? TECHNIQUE: ??MRI of the left knee performed per standard protocol with images obtained without the use of intravenous or intraarticular contrast. ?? FINDINGS: ??There has been interval decrease in patient's left knee effusion. Additional note also made of new postsurgical changes of arthroscopy with anchoring/biopsy tracks noted along the lateral femoral condyle (series #2, image #11). Marked irregularity is noted of the articular cartilage at the anterolateral femoral condyle (series #2, image #8; series #3, image #8) with associated subchondral marrow edema and new periosteal bone formation. New marrow edema also noted within the medial femoral epiphysis (series #5, image #19; series #3, image #19). Cruciate and collateral ligaments are intact with note made of improved edema around the medial collateral ligament in comparison to prior. Moderate associated subcutaneous edema also noted in the prepatellar space, also new from prior. Approximate 10 mm loose body also noted within the lateral knee joint (series #6, image #11). ?? Procedure Note Mati Sorenson MD - 12/01/2010 MRI OF THE LEFT KNEE, 11/30/10: CLINICAL HISTORY: Status post left knee arthroscopy. Additional clinical history obtained from the electronic medical record includes ongoing leftknee pain and swelling with possible inflammatory arthropathy. TECHNIQUE: MRI of the left knee performed per standard protocol withimages obtained without the use of intravenous or intraarticular contrast. FINDINGS: There has been interval decrease in patient's left kneeeffusion. Additional note also made of new postsurgical changes of arthroscopy with anchoring/biopsy tracks noted along the lateral femoral condyle (series#2, image #11). Marked irregularity is noted of the articular cartilage at the anterolateral femoral condyle (series #2, image #8; series #3, image #8)with associated subchondral marrow edema and new periosteal bone formation. New marrow edema also noted within the medial femoral epiphysis (series #5,image #19; series #3, image #19). Cruciate and collateral ligaments are intactwith note made of improved edema around the medial collateral ligament incomparison to prior. Moderate associated subcutaneous edema also noted in theprepatellar space, also new from prior. Approximate 10 mm loose body also noted withinthe lateral knee joint (series #6, image #11). IMPRESSION IMPRESSION: 1. Postsurgical changes of femoral biopsy and articular cartilage repairwith increased irregularity, bone marrow edema, and perisoteal bone formation. Decreased joint effusion and periosteal bone formation is suggestive of healing, although bone marrow edema may represent residual inflammation. 2. Prepatellar soft tissue edema. 3. Multiple intra-articular bodies, the largest is a 10 mm body within the lateral joint space. Film and interpretation reviewed by the attending Cole Brown MD IMG MRI ORDERABLES documented in this encounter Visit Diagnoses Diagnosis Effusion of knee joint, left Effusion of lower leg joint Effusion of knee joint Effusion of lower leg joint documented in this encounter Care Teams Technical Director Relationship Specialty Start Date End Date Michelet Cramer MD [address] [place] [address] PCP - General 04/27/10 07/16/15 documented as of this encounter
--- OUTSIDE RECORDS SUMMARY | 2023-12-15 02:24 | XMS_ITS | Encounter Summary ---
Author Organization Formerly [facility] [place] [address] Care Team Providers Care Body Worker Name Role Phone Virginia Cramer MD Primary Care Provider [phone] Encounter Details Date Type Department Care Team (Latest Contact Info) Description 02/13/2012 11:49 AM EST - 02/14/2012 1:39 PM EST Hospital Encounter [place] [id number] Jennifer Zhang MD [facility] [place] [address] Knee pain, right Discharge Disposition: Home Social [...] Sign Reading Time Taken Comments Blood Pressure 129/71 02/14/2012 11:51 AM EST Pulse 98 02/14/2012 11:51 AM EST Temperature 36.8 ??C (98.2 ??F) 02/14/2012 11:[address] Respiratory Rate 20 02/14/2012 11:51 AM EST Oxygen Saturation 99% 02/14/2012 11:51 AM EST Inhaled Oxygen Concentration - - Weight 69.6 kg (153 lb 7 oz) 02/13/2012 5:30 PM EST Height 147.3 cm (4' 9.99) 02/13/2012 5:30 PM ES T Body Mass Index 32.08 02/13/2012 5:30 PM EST Body Mass Index Percentile 99.24% 02/13/2012 5:3 0 PM EST Growth Chart: [facility] (Girls, 2- 20 Years) documented in this encounter Discharge Instructions * Discharge Instructions* Dillan Martinez MD - 02/14/2012 12:21 PM EST General: 1. You may not put your weight on your right leg. Use your crutches at all times. 2. You may return to school but you should be allowed to leaved class early to provide adequate time for transition between classes in an empty hallway. This will help minimize the chances for injury. 3. If your school has stairs you should utilize the elevator until at least your first follow-up appointment. 4. No gym until told otherwise by your orthopaedic surgeon. 5. Please allow Samreen to have tylenol 650 mg every 6 hours as needed while in school. Activity: You can touchdown weight bearing on your Right leg remembering to use a walker or crutches at all times for balance and protection. Diet: Resume usual diet, but increase your intake of fluids and fiber while you are on narcotic pain meds to prevent constipation Medication: 1. The pain medication that you are using can cause constipation, so make sure you increase your intake of fluids and fiber while you are on them. You should also take the stool softener that was ordered, sennakot, to factilitate a bowel movement. An [id number] medication, miralax can also beused if needed to combat constipation 2. If you need a renewal on your narcotic pain medication, you need to give the Orthopedic clinic enough time to process your request. This can take up to three days, so plan accordingly. 3. Continue the tylenol around the clock for the next 10 days - it can be effective in controlling pain along with your other medications. Shower: 1. Keep your incision and dressing dry for 72 hours after surgery. After 72 hours you can shower but remember your activity limitations and always have a chair available for balance and protection. 2. DO NOT submerge the incision. 3. After showering pat the incision dry and cover with a fresh, dry sterile dressing. Wound: 1. Sutures/floresita: No external floresita or sutures inplace. Sutures are internal and will be absorbed over time. 2. Remove your operative dressing 2 days from your surgery (02/14). 3. Replace the dressing with dry sterile gauze. Continue with daily dressing changes (and as needed) until follow-up. FOLLOWUP APPOINTMENTS: 1. You will have followup appointments at [facility] as indicated in Future Appointments and Orders. 2. If you are being discharged over the weekend or at night and do not have a scheduled appointmentwith Orthopaedics, you should be notified about your appointment within the next 1-2 days. Please call if you do not hear about an appointment within that timeframe, as your follow-up is important to us. documented in this encounter Medications at Time of Discharge Medication Sig Dispensed Refills Start Date End Date OXYcodone (ROXICODONE) 5 mg immediate release tablet Take 1 tablet by mouth every 4 hours as needed for Pain. 40 tablet 0 02/14/2012 05/03/2012 acetaminophen (TYLENOL) 325 mg tablet Take 2 tablets by mouth every 6 hours. 30 tablet 02/14/2012 12/20/2013 senna (SENOKOT) 8.6 mg tablet Take 1-2 tablets by mouth 2 times daily as needed for Constipation. 60 tablet 02/14/2012 02/23/2012 diaZEPam (VALIUM) 5 mg tablet Take 1 tablet by mouth every 6 hours as needed (Spasm related pain). 12 tablet 0 02/14/2012 02/23/2012 docusate sodium (COLACE) 50 mg capsule Take by mouth 2 times daily. As needed for constipation 10 capsule 12/17/2010 12/20/2013 documented as of this encounter Progress Notes * Zoey Abraham RN - 02/14/2012 2:40 PM EST OFFICE OF CARE MANAGEMENT(OCM), Clinical Records Technician(CRC) O:Chart reviewed and no issues noted on pt admission assessment. CRC had met with patient prior to discharge. She had similar surgery one year ago and was able to use crutches. Pt reports she was cleared by PT this admission for discharge with use of crutches. Patient has already made arrangements with her school to get work sent home. A:No OCM services anticipated; no home health issues identified. Pt discharged today Insurance:[place] Primary P:No further Office Care Management services anticipated @ this time. CRC pager [phone] * Mariola Anderson MD - 02/14/2012 1:00 PM EST Regional Anesthesiology S: Patient resting comfortably. Minimal pain. No vomiting. The block wore off at exactly 4 a.m. And we could tell a large difference in the pain after it wore off. O: Filed Vitals: 02/14/12 1151 BP: 129/71 Pulse: 98 Temp: 36.8 ??C (98.2 ??F) Resp: 20 Femoral block site RIGHT clean. Pin sized bruise. Sensation and motor intact in distribution of femoral nerve. A: Resolved femoral block. P: Signing off. Justin A: Resolved femoral block. * Malena Limon CLS - 02/14/2012 10:00 AM EST Child life note 02/14/2012 Samreen Martinez 2000 Child life note CCLS has introduced services and role to pt and family. Pt and family are familiar with child life services from same day surgery area. Pt appears to be demonstrating age appropriate coping related to hospitalization and treatment course. Age appropriate therapeutic play opportunities and resourceswere offered/provided. Pt did verbalize being scared before her surgery, but pt would not elaborate. Pt has had previous knee surgeries, and showed this senior grant writer her scars. Pt has been engaging in their room, and has familiar support present. CCLS to continue to support pt and family during hospitalization Malena Limon Med. CCLS, ENGRAVER OPTICAL FRAMES Pager [phone] * Lane Vo - 02/14/2012 5:54 AM EST ORTHOPAEDIC PROGRESS NOTE Attending: Dr. Zhang ID: Samreen Martinez Age: 11 y.o. Surgery: Right knee arthroscopy, microfracture & medial patellar reefing Date of Surgery: 02/13/12 Date of Surgery: Past Medical: Patient Active Problem List Diagnoses Code ??? Effusion of knee joint, left 719.06AK ??? Effusion of knee joint 719.06E ? ? R knee arthroscopy, microfracture & medial patellar realignment procedure 02/12 Vicente 836.3W ??? Knee pain, right 719.46AW Interim/Subjective: Block wore off around 4AM & has had more pain since then. Wondering if can loosen/open up KI as is hot to wear. Has been up to bathroom overnight without difficulty. Objective: Temp: [36 ??C (96.8 ??F)-36.9 ??C (98.4 ??F)] Heart Rate: [75-114] Resp: [18-20] BP: (97-113)/(48-67) SpO2: [96 %-100 %] I/O last 3 completed shifts: In: 953 [P.O.:180; I.V.:773] Out: 300 [Urine:300] I/O this shift: In: 1792.9 [P.O.:1560; I.V.:232.9] Out: 1100 [Urine:1100] Gen: NAD, awake, alert, appr. Right Lower Extremity: Dressing clean, dry, intact Compartments soft LTSI SP/DP/S/T distr. Motor EHL/DF/PF 5/5 2+DP pulse Labs: None Assessment: 11 y.o. female doing well post-operatively. Will continue to work on pain control/mobilization with discharge anticipated today. Recommendations: DVT prophylaxis: Mechanical prophylaxis WB status: Touch down weight bearing Dressings/casts- Will change starting POD 2 with dry, sterile gauze, Knee immobilizer RLE. No need for suture removal w/ subQclosure Antibiotics- perioperative D/C home when clears PT (today anticipated) Lane Vo MD, MS, PGYIV Orthopaedic Surgery Resident Pager [phone] Future Appointments Date Time Provider Department Center 02/23/2012 9:30 AM 1135-[facility], [facility] 3D None * Rekha Cantrell RN - 02/13/2012 6:37 PM EST NURSING ADMISSION NOTE: Samreen was admitted from PACU to this unit, her moms at her bedside. She arrived with a right knee immobilizer that she states she accidentally urinated on in PACU attempting to use bedpan, a second one has been ordered. She arrived with D5 1/2NS 20K@ 90mls infusing into her PIV in her left AC. VSS, afebrile. Normal CSM to lower extremities with the exception that her right foot was a little cooler than her left foot. Resident entered the room during admission process and verbally ordered SCD's, she has yet to order them in eDH. She has been paged and text paged several times. Mom's have beenoriented to the unit and to their room. * GildaCathytrini Page - 02/13/2012 5:04 PM EST ORTHOPAEDIC PROGRESS NOTE Attending: Dr. Zhang ID: Samreen Martinez Age: 11 y.o. Surgery: Right knee arthroscopy, microfracture & medial patellar reefing Date of Surgery: 02/13/12 Date of Surgery: Past Medical: Patient Active Problem List Diagnoses Code ??? Effusion of knee joint, left 719.06AK ??? Effusion of knee joint 719.06E ? ? R knee arthroscopy, microfracture & medial patellar realignment procedure 02/12 Vicente 836.3W ??? Knee pain, right 719.46AW Interim/Subjective: Pt doing well, stable. Pain well-controlled with femoral nerve block. No acute issues. Objective: Temp: [36 ??C (96.8 ??F)-36.6 ??C (97.9 ??F)] Heart Rate: [75-114] Resp: [18-20] BP: -- SpO2: [96 %-100 %] I/O this shift: In: 680 [P.O.:180; I.V.:500] Out: - Gen: NAD, awake, alert, appr. Right Lower Extremity: Dressing clean, dry, intact Compartments soft LTSI SP/DP/S/T distr. Motor EHL/DF/PF / 2+DP pulse Labs: None Assessment: 11 y.o. female doing well post-operatively. Recommendations: DVT prophylaxis: Mechanical prophylaxis WB status: Touch down weight bearing Dressings/casts- Will change starting POD 2 with dry, sterile gauze, Knee immobilizer RLE. No need for suture removal w/ subQclosure Antibiotics- perioperative D/C home when clears PT (tomorrow anticipated) Lane Vo MD, MS, PGYIV Orthopaedic Surgery Resident Pager [phone] Future Appointments Date Time Provider Department Center 02/23/2012 9:30 AM 1135-[facility] 3D None * Linh Warner RN - 02/13/2012 3:10 PM EST Pt awoke. Confused, weepy. Family in room. Fentanyl given . Pt upset about not feeling leg. Nerve block given in OR. Pt settled down and resting after fentanyl. No c/o pain. I gotta pee. Pt on bedpan. * Yolanda Machuca CLS - 02/13/2012 1:47 PM EST Child Life Surgical Note: Patient???s name: Samreen Martinez Patient???s age: 11 y.o. 8 m.o. Medical teams: Surgeon: Dr. Jennifer Zhang MD Anesthesia team: Dr. Chucho Blackman MD and Tamiko Cope CRNA Accompanied by: Samreen was accompanied to the OR by this CCLS and her stepmother who she refers to as mom. Items of comfort: Stuffed apurva bear Reason for visit: Arthroscopy Knee Patient???s understanding of reason for visit: When asked Samreen stated she was here for surgery. Samreen is familiar with the anesthesia process as she has had previous procedures. Developmental information: Developmentally appropriate Preferred method of induction: IV induction Preparation received for medical experience: This CCLS talked with Samreen about what she remembers from previous experiences to be able to build on her prior knowledge and correct any misinformation.Samreen was prepared for an IV start. Recommendation for pre-med: No Distraction method used: Talking Coping: Samreen arrived calm but anxious. Samreen was open to conversations with this CCLS and other staff members. Samreen coped well during her IV placement and at times laughed. However, when it was mentioned in front of Samreen that the anesthesiologist would prefer to do the nerve block while she was asleep due to the needle used Samreen became scared and teary. Samreen was able to be refocused and was calmed with the mention of it being while she was asleep so she wouldn't feel anything. Sergei again became teary when it came time to go back to the OR but was able to advocate for herselfto have one of her mothers present (mom or step mom). Once in the OR Samreen was very upset and was hard to distract and calm down. Samreen did not like the placement of the oxygen mask and stated so bu t remained cooperative throughout induction. Parental involvement: Julys mother and stepmother were here with Samreen today and were both supportive of Samreen. Description of induction process: Patient was cooperative Patient tolerated IV placement and induction process - Samreen coped very well with IV placement butwas more uncomfortable and anxious during induction as was shown visibly. Additional information: Samreen appears to be very close with her mother and her step mother and refers to them both as mom. ELIF Orosco Certified Operations Intelligence Superintendent Pager [phone] documented in this encounter H&P Notes * GildaLane Camilo - 02/13/2012 12:25 PM EST The patient's history and physical exam have been reviewed and completed. There has been no interval change from that of the pre-operative history and physical exam done within the last 30 days. * Jennifer Zhang MD - 02/13/2012 11:48 AM EST Patient Name: Samreen Martinez Patient Age: 11 y.o. Birthdate: 2000 Admit date: (Not on file) Attending Physician: Jennifer Zhang MD See scanned document for pre-procedural H&P. documented in this encounter Miscellaneous Notes * Miscellaneous - Provider, Scanning - 02/15/2012 12:25 PM EST * Initial Assessments - Alexis Moraes, KAM - 02/14/2012 3:53 PM EST Occupational Therapy Evaluation Patient profile: Samreen Martinez is a 11 y.o. female patient of Jennifer Eckert MD, admitted on 02/13/2012 for Right knee arthroscopy, microfracture & medial patellar reefing Past Medical History Diagnosis Date ??? Fracture of distal femur Per Mom, fx of lower femur and upper (?) tibia, long leg case Past Surgical History Procedure Date ??? Knee scope, diagnostic 08/31/2010 ARTHROSCOPY KNEE, DIAGNOSTIC performed by BRENDAN NAVARRO at [facility] OR ??? Apply long leg cast 08/31/2010 CAST APPLICATION, LONG LEG (THIGH TO TOES) performed by BRENDAN NAVARRO at [facility] OR ??? Knee scope, shave articular cart 08/31/2010 ARTHROSCOPY KNEE CHONDROPLASTY performed by BRENDAN NAVARRO at [facility] OR ??? Knee scope, drill oste diss+int fix 08/31/2010 ARTHROSCOPY KNEE, DRILLING & FIXATION OF OCD performed by BRENDAN NAVARRO at [facility] OR ??? Fix unstable patella, exten realign 12/16/2010 PATELLAR REALIGNMENT performed by BRENDAN NAVARRO at [facility] OR ??? Knee scope, remv loose body 12/16/2010 ARTHROSCOPY KNEE REMOVE LOOSE BODY performed by JENNIFER ZHANG at [facility] MAIN OR ??? Knee scope, abrasn arthroplasty 12/16/2010 ARTHROSCOPY KNEE, MULTIPLE DRILLING, MICROFRACTURE performed by JENNIFER ZHANG at [facility] OR ??? Apply long leg cast 12/16/2010 CAST APPLICATION, LONG LEG (THIGH TO TOES) performed by JENNIFER ZHANG at [facility] MAIN OR ??? Knee scope, part synovect 04/05/2011 ARTHROSCOPY KNEE SYNOVECTOMY LIMITED performed by JENNIFER ZHANG at [facility] MAIN OR ??? Drain/inject large joint/bursa 04/05/2011 ARTHROCENTESIS, ASPIRATION OR INJECTION, MAJOR JOINT OR BURSA, KNEE performed by JENNIFER ZHANG at [facility] OR ??? Knee scope, remv loose body 02/13/2012 ARTHROSCOPY KNEE REMOVE LOOSE BODY performed by JENNIFER ZHANG at [facility] MAIN OR ??? Arthrotomy/explore/treat knee joint 02/13/2012 ARTHROTOMY, KNEE WITH EXPLORATION performed by JENNIFER ZHANG at [facility] OR ??? Revision of unstable patella 02/13/2012 REPAIR DISLOCATING PATELLA performed by JENNIFER ZHANG at [facility] MAIN OR ??? 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 I want my mom to do it. Objective: Seen today for OT evaluation and adl teaching with pt's mother and step mother present. Cognitive Status/Behavior: alert, oriented to person, place, and time Communication: WFL Vision & Perception: WFL Range of motion, strength, coordination: Hand dominance: right Bilateral UEs are within functional limitations L LE WFL R LE: knee immobilizer; using her hands to help lift R LE for dressing and move across bed but it is heavy and painful so pt needs assistance Sensation: intact Activities of Daily Living: Self-feeding: independent Hygiene grooming: independent with set-up in bed Upper and lower body dressing and bathing: ?? Max assist to thread R pant leg over R foot and up to knee, min assist to hold pant leg for pt to put in L leg, pt then pulled up pants to thighs; transitioned to EOB and pt stood with assist and required mod assist to hike pants over hips due to decreased balance and pants were a little snug ?? Mom donned L sneaker but pt able to do in bed ?? Independent to don shirt ?? Instructed family to perform sponge bathing seated on toilet with leg elevated on stool or chair; hair washing at sink; dressing technique for pants and clothing options for easier dressing, accommodations needed for showering (seat which parents have access to from work). Toileting: Toilet Transfer: v cues for technique and dep to hold R LE up as she sat down on toilet or stood up Toilet Hygiene: Independent while seated on toilet Functional Mobility: Supine to sit: HOB slightly elevated, required v cues and assist for R LE to get to sitting EOB; mom initially wanting to use pad on bed to assist pt to slide but with cues on technique pt able to get to EOB with very little assistance Sit to stand: v cues for technique with crutches and min assist from bed; CGA from toilet with v cues in how to hold crutches in one hand Ambulation: CGA using crutches and pt essentially NWB R LE Stand to sit: CGA with crutches and v cues to use UE's to help lower self to sitting Sit to supine: v cues for technique and assist for R LE to lift up into bed and position on pillow Balance: good sitting EOB; CGA for standing with crutches. IADL???s: Assistance available to patient. Endurance: Information taken from last recorded vitals in flowsheet. Last value Range last 8 hrs Heart Rate Heart Rate: 98 Heart Rate: [89-98] Blood Pressure BP: 129/71 mmHg BP: (129-135)/(71-85) SpO2 SpO2: 99 % SpO2: [99 %] RA Pain: Reports pain in knee and some muscle spasms with R LE in dependent position, improves with elevation. RN gave medication for muscle spasms at end of session due to c/o. Skin: knee immobilizer R LE Informed Consent: The family and patient agrees to and understands the OT treatment plan and goals. Education: family and patient have been educated on Role of occupational therapy/rehabilitation, Transfers, Assistive device/technique, ADL, Functional Mobility, Home Management and Discharge planning and verbalize understanding. Discussed school accommodations and family agreed and reported that school has been very accommodating with previous surgeries with L knee. Patient status, treatment, and mobility recommendations discussed with nursing. Assessment: Pt has been seen by OT for evaluation and adl instruction with her mother and step mother present. Both work as FOOTWEAR PRODUCTION MACHINE OPERATOR's and report that they have access to a shower seat if pt is allowed to shower withcovering KI. Pt needs some assistance with adl's and her parents report that they will be able to provide this upon discharge. Pt hopes to return to school in a week; discussed accommodations and family reports that the school is prepared for this due to previous knee surgery with the pt. Anticipate as pt's pain improves, she will be able to manage her dressing and toileting needs quite quickly and before she returns to school. Pt tolerated today's session but had some problems with pain from muscle spasms. PT to see pt later today and is aware that pt may need further instruction with crutches, especially for sit><stand transfers. Do not anticipate any further OT needs. Pt to be d/c home later today with family support. Recommendations: Equipment needs at discharge: Shower chair Discharge Recommendations: home with family Other Recommendations: none Goals: n/a Plan: Pt seen for an evaluation. No further OT indicated. D/C OT. Pt to be d/c home later today. Eval date: 02/14/2012 Total time spent with patient: 50 minutes Total timed interventions: 20 minutes self care/home management Pager: [phone] ALEXIS MORAES OT 02/14/2012 Occupational Therapy Rehabilitation Department * Plan of Care - Radha Duffy - 02/14/2012 1:59 PM EST Problem: Pain, Acute (Pediatric) Goal: Acute Pain: Acceptable Pain Control/Comfort Level - Pain, Acute (Pediatric) Samreen reported no pain this morning on assessment. R foot noted to have + pedal pulses, cap refill<2 seconds and patient denies numbness/tingling. Moves easily on the bed, able to shift her entire body using just arm strength. Family reports patient has had multiple knee surgeries in the past and she is confident using crutches at home/school. Patient worked with both OT and PT this morning, refitted for new crutches. Reported at this time that pain was increased and she noticed twitching in her muscles. Valium and oxycodone administered per order with good effect. Patient tolerating good po, voiding appropriately. Patient discharged home with family, parents deny questions/concerns re home meds/discharge instructions. Contact info for MD given, follow up apt time reviewed. * Initial Assessments - Liliana Ridley, PT - 02/14/2012 11:44 AM EST Physical Therapy Evaluation Patient profile: Pt. is a 11 y.o. female admitted on 02/13/2012 by Jennifer Eckert MD for Right knee arthroscopy, microfracture & medial patellar reefing PMH: Past Medical History Diagnosis Date ??? Fracture of distal femur Per Mom, fx of lower femur and upper (?) tibia, long leg case Past Surgical History Procedure Date ??? Knee scope, diagnostic 08/31/2010 ARTHROSCOPY KNEE, DIAGNOSTIC performed by BRENDAN NAVARRO at [facility] MAIN OR ??? Apply long leg cast 08/31/2010 CAST APPLICATION, LONG LEG (THIGH TO TOES) performed by BRENDAN NAVARRO at [facility] MAIN OR ??? Knee scope, shave articular cart 08/31/2010 ARTHROSCOPY KNEE CHONDROPLASTY performed by BRENDAN NAVARRO at [facility] MAIN OR ??? Knee scope, drill oste diss+int fix 08/31/2010 ARTHROSCOPY KNEE, DRILLING & FIXATION OF OCD performed by BRENDAN NAVARRO at [facility] MAIN OR ??? Fix unstable patella, exten realign 12/16/2010 PATELLAR REALIGNMENT performed by BRENDAN NAVARRO at [facility] MAIN OR ??? Knee scope, remv loose body 12/16/2010 ARTHROSCOPY KNEE REMOVE LOOSE BODY performed by JENNIFER ZHANG at [facility] MAIN OR ??? Knee scope, abrasn arthroplasty 12/16/2010 ARTHROSCOPY KNEE, MULTIPLE DRILLING, MICROFRACTURE performed by JENNIFER ZHANG at [facility] OR ??? Apply long leg cast 12/16/2010 CAST APPLICATION, LONG LEG (THIGH TO TOES) performed by JENNIFER ZHANG at [facility] MAIN OR ??? Knee scope, part synovect 04/05/2011 ARTHROSCOPY KNEE SYNOVECTOMY LIMITED performed by JENNIFER ZHANG at [facility] MAIN OR ??? Drain/inject large joint/bursa 04/05/2011 ARTHROCENTESIS, ASPIRATION OR INJECTION, MAJOR JOINT OR BURSA, KNEE performed by JENNIFER ZHANG at [facility] OR ??? Knee scope, remv loose body 02/13/2012 ARTHROSCOPY KNEE REMOVE LOOSE BODY performed by JENNIFER ZHANG at [facility] OR ??? Arthrotomy/explore/treat knee joint 02/13/2012 ARTHROTOMY, KNEE WITH EXPLORATION performed by JENNIFER ZHANG at [facility] OR ??? Revision of unstable patella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
--- OUTSIDE RECORDS SUMMARY | 2023-12-15 02:24 | XMS_ITS | Encounter Summary ---
Author Organization [facility] Address [facility] [place] [address] Care Team Providers Care Flight Security Specialist Name Role Phone Michelet Cramer MD Primary Care Provider [phone] Reason for Visit * Reason Onset Date Comments Other 01/05/2011 Resume antiinfla mmatory Rx Encounter Details Date Type Department Care Team (Late st Contact Info) Description 01/05/2011 Telephone [place] [id number] Clare [address] MD [facility] DR PEDIATR[place] [address] Other (Resume antiinflammatory Rx) Social History Tobacco Use Types Packs/Day Years [...] Telephone Encounter - Clare Way MD - 01/05/2011 5:21 PM EDT I spoke with Dr. Brown after Samreen's last surgery when he again noted a lot of synovial inflammation in addition to all her cartilage problems. She will need to go back on anti inflammatory Rx. I then received a call from Elizabeth that her status S/P surgery was OK to start. I called mom to review her abdominal pain for which they had DC the naproxen last August. My note questions constipation. Mom does not really recall the specifics. We chose to resume the naproxen 375 mg po bid. Mom will be sureshe does not get constipated and call prn for any abdominal pain. She may need meloxicam or celecoxib, which are less GI irritating. She is coming to see Dr. Brown on January 20. She does not have a F/U scheduled with me. I will try to see her January 20 in Orthopedic Clinic if I can. I do not have space in Pediatric Clinic that day. If her status post op does not allow intra articular steroidinjection, methotrexate may be indicated. documented in this encounter Plan of Treatment Not on file documented as of this encounter Visit Diagnoses Not on filedocumented in this encounter Care Teams Flight Security Specialist Relationship Specialty Start Date End Date Michelet Cramer MD [address] [place] [address] PCP - General 04/27/10 07/16/15 documented as of this encounter
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
--- OUTSIDE RECORDS SUMMARY | 2023-12-15 02:24 | XMS_ITS | Encounter Summary ---
Author Organization [facility] Address [facility] [place] [address] Care Team Providers Care Side Door Man Name Role Phone Michelet Cramer MD Primary Care Provider [phone] Reason for Visit * Reason Comments Follow-up right knee scope - D OS 02/13/12 Encounter Details Date Type Department Care Team (Late st Contact Info) Description 11/22/2013 8:00 AM EDT Office [place] [address] Bentio Zhang MD [facility] [address] ORTHOPAEDIC [place] [address] Knee pain, right (Primary Dx) Discharge Disposition: Home Social [...] Sign Reading Time Taken Comments Blood Pressure 145/99 11/22/2013 8:39 AM EDT Pulse 86 11/22/2013 8:39 AM EDT Temperature 36.8 ??C (98.2 ??F) 11/22/2013 8:39 AM ED T Respiratory Rate - - Oxygen Saturation - - Inhaled Oxygen Concentration - - Weight 91.6 kg (202 lb) 11/22/2013 8:39 AM EDT v erbalized Height 157.5 cm (5' 2) 11/22/2013 8:39 AM EDT v erbalized Body Mass Index 36.95 11/22/2013 8:39 AM EDT Body Mass Index Percentile 99.65% 11/22/2013 8:3 9 AM EDT Growth Chart: [facility] (Girls, 2- 20 Years) documented in this encounter Progress Notes * Osman De La Fuente PA - 11/22/2013 9:12 AM EDT CHIEF COMPLAINT: Right knee pain, status post multiple patellar dislocations and knee arthroscopy on 02/13/2012. HISTORY OF PRESENT ILLNESS: This is a pleasant 13-year-old young lady here today in followup of her right knee. She has a long history in [...] a week. She feels a loose body moving around in her knee, which she actually manipulate and push into different positions. She has been unable to participate in activities that she likes. She is hoping to get back so sports some day and they have concerns about that. She is struggling quite a bit at this point even getting around school, going up and down stairs, wanting to reassess her options. PHYSICAL EXAMINATION: This is an overweight 13-year-old [...] valgus stress at 0 to 30 degrees. X-rays reviewed in the office today showing possible loose body in the superolateral area of the knee, otherwise growth plates are largely closed with just slight growth remaining. IMPRESSION: Continued patellar instability. PLAN: I had a lengthy conversation with the patient in the office today as did Dr. Zhang, reviewing her findings. She clearly continues to struggle with instability and likely has a loose body at this time. We discussed options moving forward, ranging from scoping the knee to evaluate for loose body. If they are waiting a bit longer, I am considering a Benito's osteotomy to try for a more definitive treatment for her instability. We would like to get an MRI to better evaluate the internal structures in the knee and we will make some decisions based on the MRI and then general consent this was to hold off until it is appropriate to do the Benito's and do it all in one stage. We will follow up after the results of the MRI. documented in this encounter Plan of Treatment Not on file documented as of this encounter Results * MRI knee WO [...] consistent with loose bodies. Benito Zhang MD [facility] MRI ORDERABLES documented in this encounter Visit Diagnoses Diagnosis Knee pain, right- Primary Pain in joint, lower leg Knee pain, right Pain in joint, lower leg documented in this encounter Care Teams Side Door Man Relationship Specialty Start Date End Date Michelet Cramer MD [address] [place] [address] PCP - General 04/27/10 07/16/15 documented as of this encounter
--- OUTSIDE RECORDS SUMMARY | 2023-12-15 02:24 | XMS_ITS | Encounter Summary ---
Author Organization [facility] [place] [address] Care Team Providers Care Cyber Reverse Engineer Name Role Phone Michelet Cramer MD Primary Care Provider [phone] Reason for Visit * Reason Onset Date Comments Other 01/10/2011 Encounter Details Date Type Department Care Team (Late st Contact Info) Description 01/10/2011 [place] [phone] Elizabeth Hernandez RN Other Social History Tobacco Use Types [...] Telephone Encounter - Elizabeth Hernandez RN - 01/10/2011 10:20 AM EDT Patient came for her appointment with Dr. Brown but he had to head to the OR. He gave casualty underwriter direction to check cast condition and whether it is fitting well. If cast looks good and fits well then sheshould come back in another 4 weeks if it is loose then cast should be replaced and follow up in 4 weeks. Patient reports that cast feels very loose and top of cast has the ability to slide hand in to knuckles. Reviewed with Dr. Brown and will replace cast with another well padded long leg cast and patient will return in 4 weeks. documented in this encounter Plan of Treatment Not on file documented as of this encounter Visit Diagnoses Not on filedocumented in this encounter Care Teams Cyber Reverse Engineer Relationship Specialty Start Date End Date Michelet Cramer MD [address] [place] [address] PCP - General 04/27/10 07/16/15 documented as of this encounter
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
--- OUTSIDE RECORDS SUMMARY | 2023-12-15 02:24 | XMS_ITS | Encounter Summary ---
Author Organization [facility] [place] [address] Care Team Providers Care Associate Teacher Name Role Phone Michelet Cramer MD Primary Care Provider [phone] Encounter Details Date Type Department Care Team (Latest Contact Info) Description 08/17/2011 12:07 PM EDT - 08/17/2011 11:59 PM EDT Hospital [place] [address] CLINIC, Benito Lee MD [facility] [place] [address] Discharge Disposition: Home Social History Tobacco Use [...] Sig Dispensed Refills Start Date End Date acetaminophen (TYLENOL) 325 mg tablet Take 1 tablet by mouth every 4 hours. 30 tablet 12/17/2010 02/14/2012 docusate sodium (COLACE) 50 mg capsule Take by mouth 2 times daily. As needed for constipation 10 capsule 12/17/2010 12/20/2013 documented as of this encounter Miscellaneous Notes * Miscellaneous - Provider, Dk - 09/09/2011 9:54 AM EDT documented in this encounter Plan of Treatment Not on file documented as of this encounter Procedures Procedure Name Priority Date/Time Associated Diagnosis Comments MRI KNEE WO CONTRAST Routine 08/17/2011 1:02 PM EDT documented in this encounter Results * MRI KNEE WO CONTRAST (08/17/2011 1:02 PM EDT) Anatomical Region Laterality Modality Knee Magnetic Resonan ce 08/17/2011 1:02 PM EDT Narrative 08/18/2011 2:36 PM EDT Examination MR Knee Without Mehdi/RIGHT Clinical History Patellofemoral disease right with subluxation eval chondral surfaces Comparison Left knee MRI November 30, 2010, knee x-ray November 30, 2010, April 30, 2010, and July 02, 2009. Technique A multiplanar multi sequence noncontrast MR of the right knee was performed. Findings The coronal images are degraded by artifacts, however, are thought to be of diagnostic quality. ??If clinically indicated of the adductor peak selected images. Cruciate Ligaments:The anterior and posterior cruciate ligament are intact. Collateral ligaments: ??The medial and lateral collateral ligamentous complexes are intact. Medial meniscus: ??The medial meniscus is intact. Lateral meniscus: ??The lateral meniscus is intact. Extensor mechanism: ??The patella is high riding. ??The quadriceps and patellar tendons are intact. Knee joint: ??There is no significant joint effusion. ??No intraarticular bodies are identified. ??The trochlea is dysplastic, with a flattened contour. ??This results in lateral dislocation of the patella. ??Abnormal chondral signal intensity is seen in the lateral patellar facet, likely secondary to its dislocation and articulation with the lateral femoral condyle. ??There is an irregular contour of the lateral femoral condyle, at the level of its patellar articulation as well as more posteriorly (series 2, image 21). ??These areas ?? show irregularity to the cartilage signal as well as subchondral marrow edema. ?? This change in contour of the lateral femoral condyle and the osteochondral injury may be secondary to repetitive trauma during development. ??The articular cartilage of the medial femoral condyles and medial tibial plateau is preserved. Impression ? 1. 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 ? 2. Injury to the articular cartilage of the lateral patellar facet. ? 3. Abnormal contour and osteochondral injury of the lateral femoral condyle may be secondary to repetitive trauma in the setting of lateral patellar subluxation during development. Film and interpretation reviewed by the attending Procedure Note Lorene Gan MD - 08/18/2011 Examination MR Knee Without Mehdi/RIGHT Clinical History Patellofemoral disease right with subluxation eval chondral surfaces Comparison Left knee MRI November 30, 2010, knee x-ray November 30, 2010, 2010, and July 02, 2009. Technique A multiplanar multi sequence noncontrast MR of the right knee wasperformed. Findings The coronal images are degraded by artifacts, however, are thought to beof diagnostic quality. If clinically indicated of the adductor peak selected images. Cruciate Ligaments:The anterior and posterior cruciate ligament areintact. Collateral ligaments: The medial and lateral collateral ligamentouscomplexes are intact. Medial meniscus: The medial meniscus is intact. Lateral meniscus: The lateral meniscus is intact. Extensor mechanism: The patella is high riding. The quadriceps andpatellar tendons are intact. Knee joint: There is no significant joint effusion. No intraarticularbodies are identified. The trochlea is dysplastic, with a flattened contour.This results in lateral dislocation of the patella. Abnormal chondral signal intensity is seen in the lateral patellar facet, likely secondary to its dislocation and articulation with the lateral femoral condyle. There isan irregular contour of the lateral femoral condyle, at the level of itspatellar articulation as well as more posteriorly (series 2, image 21). Theseareas show irregularity to the cartilage signal as well as subchondral marrowedema. This change in contour of the lateral femoral condyle and theosteochondral injury may be secondary to repetitive trauma during development. Thearticular cartilage of the medial femoral condyles and medial tibial plateau ispreserved. Impression 1. Dysplastic trochlea with lateral dislocation of the high-ridingpatella. 2. Injury to the articular cartilage of the lateral patellar facet. 3. Abnormal contour and osteochondral injury of the lateral femoral condyle may be secondary to repetitive trauma in the setting of lateral patellar subluxation during development. Film and interpretation reviewed by the attending Benito MARTELL MRI ORDERABLES documented in this encounter Visit Diagnoses Not on filedocumented in this encounter Care Teams Associate Teacher Relationship Specialty Start Date End Date Michelet Cramer MD [address] [facility] [place] [address] PCP - General 04/27/10 07/16/15 documented as of this encounter
--- OUTSIDE RECORDS SUMMARY | 2023-12-15 02:24 | XMS_ITS | Encounter Summary ---
Author Organization [facility] [place] [address] Care Team Providers Care Real Estate Director Name Role Phone Michelet Cramer MD Primary Care Provider [phone] Encounter Details Date Type Department Care Team (Late st Contact Info) Description 12/31/2010 10:20 AM EDT Office [place] [address] Cole Brown MD [facility] [address] [place] [address] Discharge Disposition: Home Social History Tobacco Use [...] on filedocumented in this encounter Care Teams Real Estate Director Relationship Specialty Start Date End Date Michelet Cramer MD [address] [place] [address] PCP - General 04/27/10 07/16/15 documented as of this encounter
--- OUTSIDE RECORDS SUMMARY | 2023-12-15 02:24 | XMS_ITS | Encounter Summary ---
Author Organization [facility] Address [facility] [place] [address] Care Team Providers Care Load Checker Name Role Phone Michelet Cramer MD Primary Care Provider [phone] Encounter Details Date Type Department Care Team (Late st Contact Info) Description 10/17/2013 Orders Only [place] [address] Benito Zhang MD [facility] [place] [address] Right knee pain (Primary Dx) Social History Tobacco Use [...] APstanding view. No knee effusion is seen. Benito Zhang MD IMG DX ORDERABLES documented in this encounter Visit Diagnoses Diagnosis Right knee pain- Primary Pain in joint, lower leg Right knee pain Pain in joint, lower leg documented in this encounter Care Teams Load Checker Relationship Specialty Start Date End Date Michelet Cramer MD [address] [place] [address] PCP - General 04/27/10 07/16/15 documented as of this encounter
--- OUTSIDE RECORDS SUMMARY | 2023-12-15 02:24 | XMS_ITS | Encounter Summary ---
Author Organization [facility] [place] [address] Care Team Providers Care Strategic Solutions Consultant Name Role Phone Michelet Cramer MD Primary Care Provider [phone] Reason for Visit * Reason Onset Date Comments Right Knee Pain 03/07/2012 Encounter Details Date Type Department Care Team (Late st Contact Info) Description 03/07/2012 Telephone [place] [phone] Chichi Meredith RN Right Knee Pain Social History Tobacco Use Types [...] Telephone Encounter - Chichi Meredith RN - 03/07/2012 10:25 AM EST Samreen's mother comes in to the clinic to question Samreen's report that her knee is going in and out again. She is wondering if Samreen should be seen and if she should continue to go to physical therapy. Samreen has been to PT once since her last appointment in the Orthopedic clinic. Will discuss with Dr. Zhang - recommend that we obtain PT assessment and that Samreen have a follow appointment to have her knee looked at. documented in this encounter Plan of Treatment Not on file documented as of this encounter Visit Diagnoses Not on filedocumented in this encounter Care Teams Strategic Solutions Consultant Relationship Specialty Start Date End Date Michelet Cramer MD [address] [place] [address] PCP - General 04/27/10 07/16/15 documented as of this encounter
--- OUTSIDE RECORDS SUMMARY | 2023-12-15 02:24 | XMS_ITS | Encounter Summary ---
Author Organization [facility] Address [facility] [place] [address] Care Team Providers Care Exhibition Organiser Name Role Phone Michelet Cramer MD Primary Care Provider [phone] Encounter Details Date Type Department Care Team (Late st Contact Info) Description 01/20/2011 2:20 PM EDT [place] [address] Cole Brown MD [facility] [place] [address] Effusion of knee joint, left (Primary Dx) [...] as of this encounter Progress Notes * Cole Brown MD - 02/09/2011 10:22 AM EST History of Present Illness: Samreen Martinez is a10 y.o. female who presents to [facility] today for follow-up post-op for her patellar stabilization and arthroscopy. The cast was removed. Since we last saw her she has been doing well with only some mild intermittent discomfort. Physical Examination: There is a mild post-op effusion with no tenderness and dry well healed wound. There is a painless ROM and she is N/V intact. Assessment and Plan: She is doing well Post-op. She is also having anti inflammatory treatment by Dr. Patterson owing to the diffuse synovitis we saw intraoperatively. We provided her with a patelar stabilizing brace todayand she will RTC in ~ 1 month for follow-up. documented in this encounter Plan of Treatment Not on file documented as of this encounter Visit Diagnoses Diagnosis Effusion of knee joint, left- Primary Effusion of lower leg joint documented in this encounter Care Teams Exhibition Organiser Relationship Specialty Start Date End Date Michelet Cramer MD [address] [place] [address] PCP - General 04/27/10 07/16/15 documented as of this encounter
--- OUTSIDE RECORDS SUMMARY | 2023-12-15 02:24 | XMS_ITS | Encounter Summary ---
Author Organization Formerly [facility] [place] [address] Care Team Providers Care Irradiated Fuel Handler Name Role Phone Michelet Cramer MD Primary Care Provider [phone] Reason for Visit * Reason Comments Bilateral Knee Pain Encounter Details Date Type Department Care Team (Late st Contact Info) Description 01/12/2012 8:00 AM EDT Office [place] [address] Benito Zhang MD [facility] [place] [address] Knee pain, right (Primary Dx) Discharge Disposition: [...] Sign Reading Time Taken Comments Blood Pressure 102/60 01/12/2012 8:18 AM EDT Pulse - - Temperature - - Respiratory Rate - - Oxygen Saturation - - Inhaled Oxygen Concentration - - Weight 70.8 kg (156 lb) 01/12/2012 8:18 AM EDT Height 147.3 cm (4' 10) 01/12/2012 8:18 AM EDT Body Mass Index 32.6 01/12/2012 8:18 AM EDT Body Mass Index Percentile 99.41% 01/12/2012 8:1 8 AM EDT Growth Chart: CDC (Girls, 2- 20 Years) documented in this encounter Progress Notes * Osman De La Fuente PA - 01/12/2012 9:02 AM EDT CHIEF COMPLAINT: Right knee pain. HISTORY OF PRESENT ILLNESS: This is a pleasant 11-year-old female who is well known to our practice having had number of issues with her left knee requiring multiple surgeries in [...] knee which she then pushes back into place and can begin moving again. Does not feel that she has had a true patellar dislocation. She does have an MRI in the past where she has demonstrated some bony edema and cartilage change in the trochlear groove on the right. They are a little concerned that she may be heading down a similar path on the right as she was on the left. PHYSICAL EXAMINATION: This is an overweight 11-year-old, in no acute distress, A&O x3 with a pleasant affect, who comes into the office today without antalgia. Exam of her right knee shows no obvious deformity. Skin warm and dry without lesions. She does have a mild effusion, no pain with patellar mobilization. She does have some hypermobility of the patella. Able to do straight leg raise without difficulty or lag. Range of motion is 0 to 130 degrees without pain. Nontender over the medial or lateral joint line. Negative Steinmann's, negative Zachary's, negative anterior and posterior drawer sign. Normal sensation and motor function distally. X-RAY: X-rays were taken in the office today demonstrating on the lateral and AP particularly what appears to be a large osteochondral fragment, otherwise normal. IMPRESSION: Right knee pain and swelling and question of osteochondral defect. PLAN: Both Dr. Zhang and I had the opportunity to evaluate this patient in the office today. We reviewed her findings at length with the patient and her mother. She has symptoms and x-rays that are clearly concerning for an osteochondral defect and a loose fragment. Recommendation at this time is that we plan for arthroscopy with potential arthrotomy and attempted fixation of the osteochondral fragment. They have been through this before on the left side and they understand that process. They will go home with think things through. We will have her surgery scheduled, just call them to setup a time. documented in this encounter Miscellaneous Notes * Miscellaneous - Jose Alejandro, Quality Process Engineer - 02/15/2012 2:52 PM EST documented in this encounter Plan of Treatment Not on file documented as of this encounter Procedures Procedure Name Priority Date/Time Associated Diagnosis Comments ARTHROSCOPY KNEE REMOVE LOOSE BODY Routine 01/12/2012 9:04 AM EDT Knee pain, right documented in this encounter Visit Diagnoses Diagnosis Knee pain, right- Primary Pain in joint, lower leg documented in this encounter Care Teams Irradiated Fuel Handler Relationship Specialty Start Date End Date Michelet Cramer MD [address] [place] [address] PCP - General 04/27/10 07/16/15 documented as of this encounter
--- OUTSIDE RECORDS SUMMARY | 2023-12-15 02:24 | XMS_ITS | Encounter Summary ---
Author Organization [facility] [place] [address] Care Team Providers Care Industrial Relations Worker Name Role Phone Michelet Cramer MD Primary Care Provider [phone] Reason for Visit * Reason Onset Date Comments Other 12/21/2010 Encounter Details Date Type Department Care Team (Late st Contact Info) Description 12/21/2010 Telephone Orthopaedics at [facility] [place] [phone] Elizabeth Hernandez RN Other Social History Tobacco [...] Telephone Encounter - Elizabeth Hernandez RN - 12/21/2010 4:06 PM EDT Spoke with Mom, note generated for school, patient not so compliant with the no weight bearing, Momwill continue to re-enforce NWB. Cast starting to crack, step Dad and Grandma will bring her in tomorrow am to over-wrap and re-enforce. Dr. Brown reviewed with DR. Way and Dr. Brown will page at follow up visit and will likely start NSAIDS documented in this encounter Plan of Treatment Not on file documented as of this encounter Visit Diagnoses Not on filedocumented in this encounter Care Teams Industrial Relations Worker Relationship Specialty Start Date End Date Michelet Cramer MD [address] [place] [address] PCP - General 04/27/10 07/16/15 documented as of this encounter
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
--- OUTSIDE RECORDS SUMMARY | 2023-12-15 02:24 | XMS_ITS | Encounter Summary ---
Author Organization [facility] Address [facility] [place] [address] Care Team Providers Care Dumping Machine Operator Name Role Phone Michelet Cramer MD Primary Care Provider [phone] Encounter Details Date Type Department Care Team (Latest Contact Info) Description 01/12/2012 7:25 AM EDT - 01/12/2012 11:59 PM EDT Hospital Encounter XRay at [address] [place] [address] Right knee pain Social History Tobacco Use [...] related pain). 12 tablet 0 02/14/2012 02/23/2012 acetaminophen (TYLENOL) 325 mg tablet Take 1 [...] SPORTS TEAM PTS UNDER 25 AP LAT RAMIRES SKYLINE BILATERAL Routine 01/12/2012 7:58 AM EDT Right knee pain documented in this encounter Results * XR SPORTS TEAM PTS UNDER 25 AP LAT SKYLINE TUNNEL (01/12/2012 7:58 AM EDT) Anatomical Region Laterality Modality Knee N/A Radiographic Savana ging 01/12/2012 7:58 AM EDT Narrative 01/12/2012 9:55 AM EDT Examination SPORTS TEAM PTS UNDER 25 AP LAT SKYLINE TUNNEL/RIGHT Clinical History RIGHT KNEE PAIN, POPS, LOCKS Comparison Right knee MRI 08/17/2011, x-rays 07/02/2009. Right knee MRI 08/17/2011, knee x-rays 07/02/2009. Technique 3 views right knee, 2 views left knee. Findings: Findings No acute fracture or dislocation is identified. ??No appreciable patellar tilt or subluxation identified on the sunrise view. ??Again seen is osteochondral injury involving the anterior aspect of the lateral femoral condyle and the lateral trochlear fat-sat, with associated cortical irregularity. ??Prominent osseous projection/spur from the superior aspect of trochlear epiphysis, the bleed that is noted on the lateral projection, similar to most recent MRI. ?? There is a probable small to moderate knee joint effusion. ??Joint spaces both knees appear maintained. Impression Findings compatible with osteochondral lesions involving the lateral trochlear facet and the anterior lateral femoral condyle, corresponding to MRI findings. No acute fracture. ??Small to moderate knee joint effusion. Procedure Note Brayan Britton MD - 01/12/2012 Examination SPORTS TEAM PTS UNDER 25 AP LAT SKYLINE TUNNEL/RIGHT Clinical History RIGHT KNEE PAIN, POPS, LOCKS Comparison Right knee MRI 08/17/2011, x-rays 07/02/2009. Right knee MRI 08/17/2011, knee x-rays 07/02/2009. Technique 3 views right knee, 2 views left knee. Findings: Findings No acute fracture or dislocation is identified. No appreciable patellartilt or subluxation identified on the sunrise view. Again seen isosteochondral injury involving the anterior aspect of the lateral femoral condyle andthe lateral trochlear fat-sat, with associated cortical irregularity.Prominent osseous projection/spur from the superior aspect of trochlear epiphysis,the bleed that is noted on the lateral projection, similar to most recent MRI. There is a probable small to moderate knee joint effusion. Joint spacesboth knees appear maintained. Impression Findings compatible with osteochondral lesions involving the lateraltrochlear facet and the anterior lateral femoral condyle, corresponding to MRIfindings. No acute fracture. Small to moderate knee joint effusion. Benito Zhang MD IMG DX ORDERABLES documented in this encounter Visit Diagnoses Diagnosis Right knee pain Pain in joint, lower leg documented in this encounter Care Teams Dumping Machine Operator Relationship Specialty Start Date End Date Michelet Cramer MD [address] [place] [address] PCP - General 04/27/10 07/16/15 documented as of this encounter
--- OUTSIDE RECORDS SUMMARY | 2023-12-15 02:24 | XMS_ITS | Encounter Summary ---
Author Organization [facility] [place] [address] Care Team Providers Care Front Desk Specialist Name Role Phone Virginia Cramer MD Primary Care Provider [phone] Encounter Details Date Type Department Care Team (Late st Contact Info) Description 02/13/2012 1:28 PM EST - 02/13/2012 4:56 PM EST [place] [id number] Jennifer Zhang MD [facility] [place] [address] ARTHROSCOPY KNEE REMOVE LOOSE BODY (WRVU 7.19) Social History Tobacco Use Types Packs/Day Years [...] 02/13/2012 5:3 0 PM EST Growth Chart: [facility] [place] (Girls, 2- 20 Years) documented in this [...] sennakot, to factilitate a bowel movement. An ysyv-kgu-eomzhly medication, miralax can also beused if needed [...] 1. You will have followup appointments at [facility] [place] as indicated in Future [...] PM EST OFFICE OF CARE MANAGEMENT(OCM), Clinical Project Engineer(CRC) O:Chart reviewed and no issues noted on [...] services anticipated @ this time. CRC pager [phone] * Mariola Anderson MD - 02/14/2012 1:00 [...] family during hospitalization Malena Limon Med. CCLS, RECORDS MANAGEMENT TECHNICIAN Pager [phone] * Lane Vo - 02/14/2012 5:54 AM EST ORTHOPAEDIC PROGRESS NOTE Attending: Dr. Zhang ID: Samreen Miguel Angel Haroniles Age: 11 y.o. Surgery: Right knee arthroscopy, [...] MD, MS, PGYIV Orthopaedic Surgery Resident Pager [phone] Future Appointments Date Time Provider Department Center 02/23/2012 9:30 AM 1135-JENNIFER ZHANG [facility] 3[facility] None * Rekha Cantrell, RN - 02/13/2012 6:37 PM EST NURSING [...] PROGRESS NOTE Attending: Dr. Zhang ID: Samreen Miguel Angel Martinez Age: 11 y.o. Surgery: Right knee [...] MD, MS, PGYIV Orthopaedic Surgery Resident Pager [phone] Future Appointments Date Time Provider Department Center [...] Jennifer Zhang MD Anesthesia team: Dr. Chucho Blcakman MD and Tamiko Cope CRNA Accompanied by: [...] them both as mom. ELIF Orosco Certified Personal Care Home Administrator Pager [phone] documented in this encounter H&P Notes * Gilda Lane C - 02/13/2012 12:25 PM EST The patient's [...] EST * Initial Assessments - Alexis Moraes, OT - 02/14/2012 3:53 PM EST Occupational Therapy [...] DIAGNOSTIC performed by BRENDAN NAVARRO at [facility] OR ??? Apply long leg cast 08/31/2010 CAST APPLICATION, LONG LEG (THIGH TO TOES) performed by BRENDAN NAVARRO at [facility] OR ??? Knee scope, shave articular cart 08/31/2010 ARTHROSCOPY KNEE CHONDROPLASTY performed by BRENDAN NAVARRO at [facility] OR ??? Knee scope, drill oste diss+int fix 08/31/2010 ARTHROSCOPY KNEE, DRILLING & FIXATION OF OCD performed by BRENDAN NAVARRO at [facility] OR ??? Fix unstable patella, exten realign 12/16/2010 PATELLAR REALIGNMENT performed by BRENDAN NAVARRO at [facility] OR ??? Knee scope, remv loose body 12/16/2010 ARTHROSCOPY KNEE REMOVE LOOSE BODY performed by JENNIFER ZHANG at [facility] OR ??? Knee scope, abrasn arthroplasty 12/16/2010 ARTHROSCOPY KNEE, MULTIPLE DRILLING, MICROFRACTURE performed by JENNIFER ZHANG at [facility] OR ??? Apply long leg cast 12/16/2010 CAST APPLICATION, LONG LEG (THIGH TO TOES) performed by JENNIFER ZHANG at [facility] OR ??? Knee scope, part synovect 04/05/2011 ARTHROSCOPY KNEE SYNOVECTOMY LIMITED performed by JENNIFER ZHANG at [facility] OR ??? Drain/inject large joint/bursa 04/05/2011 ARTHROCENTESIS, ASPIRATION OR INJECTION, MAJOR JOINT OR BURSA, KNEE performed by JENNIFER ZHANG at [facility] OR ??? Knee scope, remv loose body 02/13/2012 ARTHROSCOPY KNEE REMOVE LOOSE BODY performed by JENNIFER ZHANG at [facility] OR ??? Arthrotomy/explore/treat knee joint 02/13/2012 ARTHROTOMY, KNEE WITH EXPLORATION performed by JENNIFER ZHANG at [facility] OR ??? Revision of unstable patella 02/13/2012 REPAIR DISLOCATING PATELLA performed by JENNIFER ZHANG at [facility] OR ??? 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 Home Setup: [...] oriented to person, place, and time Communication: [facility] Vision & Perception: WFL Range of motion, [...] and step mother present. 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 Apply long leg cast 08/31/2010 CAST APPLICATION, LONG LEG (THIGH TO TOES) performed by BRENDAN NAVARRO at [facility] OR ??? Knee scope, shave articular cart 08/31/2010 ARTHROSCOPY KNEE CHONDROPLASTY performed by BRENDAN NAVARRO at [facility] OR ??? Knee scope, drill oste diss+int fix 08/31/2010 ARTHROSCOPY KNEE, DRILLING & FIXATION OF OCD performed by BRENDAN NAVARRO at [facility] OR ??? Fix unstable patella, exten realign 12/16/2010 PATELLAR REALIGNMENT performed by BRENDAN NAVARRO at [facility] OR ??? Knee scope, remv loose body 12/16/2010 ARTHROSCOPY KNEE REMOVE LOOSE BODY performed by JENNIFER ZHANG at [facility] OR ??? Knee scope, abrasn arthroplasty 12/16/2010 ARTHROSCOPY KNEE, MULTIPLE DRILLING, MICROFRACTURE performed by JENNIFER ZHANG at [facility] OR ??? Apply long leg cast 12/16/2010 CAST APPLICATION, LONG LEG (THIGH TO TOES) performed by JENNIFER ZHANG at [facility] OR ??? Knee scope, part synovect 04/05/2011 ARTHROSCOPY KNEE SYNOVECTOMY LIMITED performed by JENNIFER ZHANG at [facility] OR ??? Drain/inject large joint/bursa 04/05/2011 ARTHROCENTESIS, ASPIRATION OR INJECTION, MAJOR JOINT OR BURSA, KNEE performed by JENNIFER ZHANG at [facility] OR ??? Knee scope, remv loose body 02/13/2012 ARTHROSCOPY KNEE REMOVE LOOSE BODY performed by JENNIFER ZHANG at [facility] OR ??? Arthrotomy/explore/treat knee joint 02/13/2012 ARTHROTOMY, KNEE WITH EXPLORATION performed by JENNIFER ZHANG at [facility] OR ??? Revision of unstable patella 02/13/2012 REPAIR DISLOCATING PATELLA performed by JENNIFER ZHANG at [facility] OR ??? Knee scope, abrasn arthroplasty 02/13/2012 ARTHROSCOPY KNEE, MULTIPLE DRILLING, MICROFRACTURE performed by JENNIFER ZHANG at [facility] OR Social History:Mother and Step Mother present [...] 0 minutes LILIANA RIDLEY, PT 02/14/2012 Pager: [phone] Physical Therapy Rehabilitation Department * Discharge Summary [...] sennakot, to factilitate a bowel movement. An zwma-dut-pbdkhbq medication, miralax can also beused if needed [...] 1. You will have followup appointments at [facility] [place] as indicated in Future [...] AM Jennifer Zhang MD [facility] [phone] None Joint Appt Health Question Three C Orth[facility] [phone] None Provider Contact Information: Primary Care Provider: VIRGINIA CRAMER MD [phone] Hospital Attending: Jennifer Zhang MD Department of Orthopaedic Surgery Sports: [phone] Signed: DILLAN MARTINEZ MD 02/14/2012 * OR Attestation - Jennifer Zhang MD - 02/13/2012 2:50 PM EST Attestation: Case Date: 02/13/2012 I was present and I participated during the entire procedure (does not need to include opening and closing). JENNIFER ZHANG MD 02/13/2012 * Op Note - Jennifer Zhang MD - 02/13/2012 2:38 PM EST [facility] [place] Operative Note Patient Name: Samreen Martinez : [id number] MR#: [id number] Case Date: 02/13/2012 Surgeon: Surgeon(s) and Role: [...] pain, right Pain in joint, lower leg Knee pain, right Pain in joint, lower leg documented in this encounter Administered Medications Inactive Administered Medications - up to 3 most recent administrations Medication Order MAR Action Action Date Dose Rate Site ceFAZolin (ANCEF) injection ONCE PRN, Starting on Mon02/13/12 at 1324, Until Mon02/13/12 at 1700, Intra-Operative (Intra-Procedure), Routine Given 02/13/2012 1:24 PM EST 1 g documented in this encounter Active and Recently [...] Sheryl Agosto RN)0610 (Given - Provider: Sheryl Agosto, YOLY)0930 (Given - Provider: Yamile Anderson)1330 (Due) ceFAZolin (ANCEF) 1g in dextrose 5% 50mL (COMPLETED) 1,000 mg (14.4 mg/kg/dose = 1 g), Intravenous, EVERY 8 HOURS, 3 doses, First dose on Mon02/13/12 at 1730, Last dose on Mon02/14/12 at 0930, Administer over 30 Minutes, Indication for (Active or Suspected): Prophylaxis 1815 (Given - Provider: Rekha Cantrell RN) 0200 (Given - Provider: Sheryl Agosto RN)0930 (Given - Provider: Yamile Anderson) docusate sodium [...] 2026 1519 (New Bag - Provider: Linh Warner, YOLY)2050 (Stopped - Provider: Sheryl Agosto RN) PRN Medication Order 02/12/2012 02/13/2012 02/14/2012 ceFAZolin [...] Routine 0430 (Given - Provid er: Sheryl Agosto RN)1039 (Given - Provider: Radha Duffy) fentaNYL 50mcg/mL injection (CANCELED) 25-50 mcg (0.359-0.718 mcg/kg), Intravenous, EVERY 5 MIN PRN, Starting on Mon02/13/12 at 1446, Until Mon02/13/12 at 2242, Pain, for breakthrough pain, Hold for respiratory rate less than 10 per minute. Maximum dose: 250 mcg over one hour., Routine 1508 (Given - Provider: Linh Warner RN) OXYcodone (ROXICODONE) immediate release tablet 5 mg 5 mg (0.0718 mg/kg/dose), Oral, EVERY 4 HOURS PRN, Starting on Mon02/13/12 at 2025, Until Mon02/14/12 at 1541, Pain, Routine 2200 (Given - Provider: Sheryl Agosto RN) 0200 (Given - Provider: Sheryl Agosto RN)0610 (Given - Provider: Sheryl Agosto, YOLY)1151 (Given - Provider: Yamile Anderson) senna (SENOKOT) tablet 17.2-34.4 mg 17.2-34.4 mg (0.247-0.494 mg/kg/dose), Oral, 2 TIMES DAILY PRN, Starting on Mon02/13/12 at 1700, Until Mon02/14/12 at 1541, Constipation, Routine documented in this encounter Care Teams Front Desk Specialist Relationship Specialty Start Date End Date Virginia Cramer MD [address] [place] [address] [place] [address] PCP - General 04/27/10 07/16/15 documented as of this encounter
--- OUTSIDE RECORDS SUMMARY | 2023-12-15 02:24 | XMS_ITS | Encounter Summary ---
Author Organization [facility]ly [facility] [place] [address] Care Team Providers Care Manager Pricing Name Role Phone Michelet Cramer MD Primary Care Provider [phone] Reason for Visit * Reason Comments Left Knee Pain DOS 9.29.11 L knee Encounter Details Date Type Department Care Team (Late st Contact Info) Description 01/26/2011 1:00 PM EST [place] [id number] CLINIC, [facility] Discharge Disposition: Home Social History Tobacco Use [...] on file documented as of this encounter Patient Instructions * Patient Instructions* Isaiah Gudino, INTERNET MARKETING ANALYST - 01/26/2011 12:58 PM EST Welcome to [employer], your secure online access to your electronic medical record at [facility]. Using [employer] you will be able to send messages to your providers, view your test results, renew prescriptions, schedule appointments, and much more. Follow these instructions to enter your personal [employer] account for the first time: 1. Start your internet browser. Go to [email or web address] and click on the [employer] link. 2. Click SIGN UP NOW to go to the NEW MEMBER SIGN UP page. 3. Enter your [employer] Access Code exactly as it appears below. (You will not need this access code after you have completed the sign-up process.) ?? Your myD-H Access Code: Not generated ?? Patient is too young for myD-H access ?? IMPORTANT: This Access Code will on the above mentioned date. If you do not sign up before this date, you will need to request a new Access Code number. 4. Enter your Date of (mm/dd/yyyy) and zip code click SUBMIT to go to the next page. 5. Create a myD-H identification (ID). This will be your myD-H login ID and cannot be changed, so think of one that is secure and easy to remember. 6. Create a password which you can change at any time. Your password must contain six (6) letters and two (2) numbers. 7. Enter your Password Reset Question and Answer. This will be used if you forget your password. 8. Enter your e-mail address. This is used to let you know when new information is available in myD-H. 9. Click SIGN UP to complete the process. You can now view your electronic medical record. If you have any questions about myD-H or your Access Code, please call for [place], for [place] or for [employer]. If you need technical support, please e-mail [email or web address]. Remember, myD-H is NOT for urgent needs! Always dial 911 for medical emergencies. documented in this encounter Plan of Treatment Not on file documented as of this encounter Visit Diagnoses Not on filedocumented in this encounter Care Teams Manager Pricing Relationship Specialty Start Date End Date Michelet Cramer MD [address] [place] [address] [place] [address] PCP - General 04/27/10 07/16/15 documented as of this encounter
--- OUTSIDE RECORDS SUMMARY | 2023-12-15 02:24 | XMS_ITS | Encounter Summary ---
Author Organization [facility] [address] Care Team Providers Care Applications Administrator Name Role Phone Michelet Cramer MD Primary Care Provider [phone] Encounter Details Date Type Department Care Team (Late st Contact Info) Description 02/13/2012 1:12 PM EST Anesthesia [place] [address] Chucho Blackman MD [facility] [place] [address] Anesthesia Record Procedure Summary Procedure Name Responsible Anesthesiologist Anesthesia Start Time Anesthesia Stop Time ARTHROSCOPY KNEE REMOVE LOOSE BODY (WRVU 7.19) (Right: Knee) Chucho Blackman MD 02/13/12 1312 02/13/12 1459 Events Date Time Event Comment 02/13/2012 1223 1312 Start 1459 Stop Meds * Agents No agents on [...] 1715 by Jenna Anders Incision 02/13/12; knee; 10/19 12/09 (LDA cleanup utility RA#[id number]); 1715 (LDA cleanup utility RA#[id number]) 02/13/12 0000 by Haleigh Devlin RN 11/15/21 1715 by Jenna Anders (RETIRED) Peripheral IV Line - Single Lumen 02/13/12; 1303; 02/14/12; 1230 02/13/12 1303 by Bowen Adame RN 02/14/12 1230 by Radha Duffy documented in this encounter Social History Tobacco [...] OR Notes * Anesthesia Postprocedure Evaluation - Chucho Blackman MD - 02/13/2012 3:00 PM EST Patient: Samreen Martinez Procedure(s) Performed: Procedure(s): ARTHROSCOPY KNEE REMOVE LOOSE BODY ARTHROTOMY, KNEE WITH EXPLORATION REPAIR DISLOCATING PATELLA ARTHROSCOPY KNEE, MULTIPLE DRILLING, MICROFRACTURE Patient location: PACU Post-op pain: Adequate analgesia Post-op nausea: no nausea or vomiting Last Vitals: Filed Vitals: 02/13/12 1213 Pulse: 88 Temp: 36.6 ??C (97.9 ??F) Resp: 18 Post-op cardiovascular and respiratory status: is stable Level of consciousness: awake Complications: no apparent complications and tolerated the procedure well Fluid Status: normal * Anesthesia Procedure Notes - Chucho Blackman MD - 02/13/2012 1:34 PM EST Associated Order(s): ANESTHESIA BLOCK Procedure Block: Post-op Pain Control, femoral nerve block Start time: 02/13/2012 1:19 PM End time: 02/13/2012 1:23 PM This patient was greeted in the [...] were applied. Indication/Prep Position: supine Prep: chlorhexidine Laterality: right Ultrasound Guidance: live and in-planeInjection Injection technique:single-shot Injection Pressure Monitoring: <15 PSI Needle Length: 5 cm Gauge: 25 Needle Type: A-umnza-pmked Medication injection made incrementally with aspirations. Nerve infiltration solution through a needle Ropivicaine 0.5% 20 mL Additional Notes Block placed with patient asleep in the OR Performed by Chucho Blackman M.D. * Anesthesia Preprocedure Evaluation - Chucho Blackman MD - 02/12/2012 5:31 AM EST Today I evaluated Samreen Martinez a 11 y.o. female. Procedure(s): ARTHROSCOPY KNEE REMOVE LOOSE BODY ARTHROTOMY, KNEE WITH EXPLORATION REPAIR DISLOCATING PATELLA Patient Active Problem List Diagnoses ??? Knee pain, right ??? Traumatic patellofemoral subluxation ??? Effusion of knee joint ??? Effusion of knee joint, left Effusion tapped on 07/06/2010. Fluid was described as red. Past Medical History Diagnosis Date ??? Fracture of distal femur Per Mom, fx of lower femur and upper (?) tibia, long leg case Past Surgical History Procedure Date ??? Knee scope, diagnostic 08/31/2010 ARTHROSCOPY KNEE, DIAGNOSTIC performed by BRENDAN NAVARRO at [facility] OR ??? Apply long leg cast 08/31/2010 CAST APPLICATION, LONG LEG (THIGH TO TOES) performed by BRENDAN NAVARRO at [facility] OR ??? Knee scope, shave articular cart 08/31/2010 ARTHROSCOPY KNEE CHONDROPLASTY performed by BRENDAN NAVARRO at [facility] OR ??? Knee scope, drill oste diss+int fix 08/31/2010 ARTHROSCOPY KNEE, DRILLING & FIXATION OF OCD performed by BRENDAN NAVARRO at [facility] OR ??? Fix unstable patella, exten realign 12/16/2010 PATELLAR REALIGNMENT performed by BRENDAN NAVARRO at [facility] OR ??? Knee scope, remv loose body 12/16/2010 ARTHROSCOPY KNEE REMOVE LOOSE BODY performed by JENNIFER GUNTER at [facility] OR ??? Knee scope, abrasn arthroplasty 12/16/2010 ARTHROSCOPY KNEE, MULTIPLE DRILLING, MICROFRACTURE performed by JENNIFER GUNTER at [facility] OR ??? Apply long leg cast 12/16/2010 CAST APPLICATION, LONG LEG (THIGH TO TOES) performed by JENNIFER GUNTER at [facility] OR ??? Knee scope, part synovect 04/05/2011 ARTHROSCOPY KNEE SYNOVECTOMY LIMITED performed by JENNIFER GUNTER at [facility] OR ??? Drain/inject large joint/bursa 04/05/2011 ARTHROCENTESIS, ASPIRATION OR INJECTION, MAJOR JOINT OR BURSA, KNEE performed by JENNIFER GUNTER at [facility] OR History Substance Use Topics ??? Smoking status: Passive Smoker ??? Smokeless tobacco: Never Used Comment: Adults smoke outside ??? Alcohol Use: No Allergies Allergen Reactions ??? Sulfa (Sulfonamide Antibiotics) Medications: MAR and/or home medications have been reviewed. Physical Exam: There were no vitals filed for this visit. There is no height or weight on file to calculate BMI. Airway Assessment: Mallampati: II TM distance: >3 FB Neck ROM: full Cardiovascular Assessment: cardiovascular exam normal Pulmonary Assessment: pulmonary exam normal Dental Assessment: Misc Assessment: Anesthesia Plan: ASA 2 General with intravenous induction GA with an ETT discussed and planned. Regional anesthetic offered for post-op pain. Mother refused. Informed Consent: Anesthetic plan and risks discussed with patient, mother and legal guardian. Plan discussed with BRICKLAYER'S ASSISTANT. [facility]. Assessment: documented in this encounter Plan of Treatment Not on file documented as of this encounter Visit Diagnoses Not on filedocumented in this encounter Care Teams Applications Administrator Relationship Specialty Start Date End Date Michelet Cramer MD [address] [place] [address] PCP - General 04/27/10 07/16/15 documented as of this encounter
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
--- OUTSIDE RECORDS SUMMARY | 2023-12-15 02:24 | XMS_ITS | Encounter Summary ---
Author Organization [facility] Address [facility] [place] [address] Care Team Providers Care Commercial Installer Name Role Phone Michelet Cramer MD Primary Care Provider [phone] Encounter Details Date Type Department Care Team (Late st Contact Info) Description 12/26/2011 Orders [place] [address] Benito Zhang MD [facility] [place] [address] Right knee pain (Primary Dx) Social History [...] as of this encounter Results * XR SPORTS TEAM [...] leg documented in this encounter Care Teams Commercial Installer Relationship Specialty Start Date End Date Michelet Cramer MD [address] [place] [address] [place] [address] PCP - General 04/27/10 07/16/15 documented as of this encounter
--- OUTSIDE RECORDS SUMMARY | 2023-12-15 02:24 | XMS_ITS | Encounter Summary ---
[place] [address] Care Team Providers Care Orthopedic Shoe Fitter Name Role Phone Michelet Cramer MD Primary Care Provider [phone] Encounter Details Date Type Department Care Team (Late st Contact Info) Description 04/08/2011 Notes [place] [address] Addie Bee, RN Social History Tobacco Use Types Packs/Day [...] on filedocumented in this encounter Care Teams Orthopedic Shoe Fitter Relationship Specialty Start Date End Date Michelet Cramer MD [address] [place] [address] [place] [address] PCP - General 04/27/10 07/16/15 documented as of this encounter
--- OUTSIDE RECORDS SUMMARY | 2023-12-15 02:25 | XMS_ITS | Encounter Summary ---
Author Organization [facility] Address [facility] [place] [address] Care Team Providers Care Branch Office Administrator Name Role Phone Michelet Cramer MD Primary Care Provider [phone] Reason for Visit * Reason Comments Left Knee Pain with swelling Encounter Details Date Type Department Care Team (Late st Contact Info) Description 07/06/2010 11:00 AM EDT Office Visit [facility] [address] [place] [address] [facility] [place] [address] Effusion of knee joint (Primary Dx) Discharge Disposition: Home Social History Tobacco Use Types Packs/Day Years Used Date Smoking Tobacco: Passive Smo ke Exposure - Never Smoker Alcohol Use Standard Drinks/Week Comments Not Asked 0 (1 standard drink = 0.6 oz pur e alcohol) Sex and Gender Information Value Date Recorded Sex Assigned at Not on file Gender Identity Not on file Sexual Orientation Not on file documented as of this encounter Progress Notes * Clare Way MD - 07/07/2010 3:30 PM EDT Subjective: Patient ID: Samreen Martinez is a 10 y.o. female. HPI: Samreen was referred to Pediatric Rheumatology for consultation by Benson Brown. Samreen has a long history, maybe 6 years, of her knee caps shifting. She fell and fractured her leg, (? Location) in October of 2008. Subsequently she has had more problems with this slipping.She was followed by an orthopedist in [place] and then referred here to [facility] in April of 2010. She was given PT and returned today for F/U with a 10 day history of increased pain and swelling such that she is having difficulty walking. They deny any recent trauma and they deny any systemic symptoms. There was no preceding rash or febrile illness late summer or in the fall to suggest Lyme disease. An MRI today showed a large effusion and Dr. Brown is now concerned about AIDAN as her diagnosisrather than patello femoral syndrome. She reports clear AM stiffness lasting about 2 hours. She denies previous episodes of swelling withher past knee problems. She denies any other joint pain. She has a positive BERNY without a titer. She denies all symptoms of CTD associated with a positive BERNY. Her Lyme status is pending. Her CBC revealed a WBC of 12,000 with a Hg of 13.1 and a platelet count of 366,000. Her differential was unremarkable. Her ESR was 11 and now is 23. Her CRP is now 9.4. Review of Systems Constitutional: Positive for activity change. Negative for fever, chills and fatigue. HENT: Negative. Eyes: Negative. Respiratory: Negative. Cardiovascular: Negative. Gastrointestinal: Negative. Genitourinary: Negative. Musculoskeletal: See HPI. Skin: Negative. Neurological: Negative. Hematological: Negative. Psychiatric/Behavioral: Negative. PMH: The and delivery were uncomplicated. Her growth and development are reported as WNL.She has had no significant past illnesses, surgeries or other injuries than the fracture noted in the HPI. Her immunizations are up to date. SH: Her parents are and both are remarried. She spends the school year with her mother andstep father. There are 3 1/2 sibs in this household. She spends the messer with her father in [place]. She has a 1/2 brother and 1 step brother in this household. 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 Objective: Physical Exam Constitutional: She appears well-developed and well-nourished. No distress. HENT: Right Ear: Tympanic membrane normal. Left Ear: Tympanic membrane normal. Mouth/Throat: Mucous membranes are moist. Oropharynx is clear. Eyes: Her conjunctivae were moist and clear. There were no obvious synechiae. There was no ophthalmoscopeavailable in orthopedic clinic for a more complete exam. Neck: FROM without adenopathy, masses, or pain at the extremes of motion. There was no thyromegaly or nodules. Cardiovascular: Normal rate, regular rhythm, S1 normal and S2 normal. No murmur heard. Pulmonary/Chest: Effort normal and breath sounds normal. Abdominal: Soft. She exhibits no mass. There is no hepatosplenomegaly. No tenderness. Musculoskeletal: A detailed joint exam was performed. She had a large effusion in her left knee with mild limitationof full extension and flexion. There was moderate pain at the extremes of motion. There was a question of a small effusion in her right knee with FROM and no pain at the extremes of motion. All otherjoints showed full ROM without pain at the extremes of motion. Her leg lengths were equal. She walked with her left knee flexed and a significant limp. Neurological: She is alert. She displays normal reflexes. No cranial nerve deficit. She exhibits normal muscle tone. Coordination normal. Skin: Skin is warm and dry. No petechiae and no rash noted. Assessment : 1 1. Chronic knee complaints 1. Chronic knee problems, ? BERNY+ oligoarticular AIDAN. 2. Bloody knee fluid of uncertain significance. The WBC count was consistent with AIDAN and low probability for infection. Plan: 1. Labs as ordered. 2. Naproxen 375 mg po bid. 3. Eye exam by an prescriptionist to R/O uveitis. Further exams should be at 6 month intervals. 4. Given her bloody fluid, she will be followed by Dr. Brown with possibly another aspiration. Perhaps Aristospan could be injected then now we know her Lyme titer is negative. No problem-specific visit notes found for this encounter. documented in this encounter Plan of Treatment Not on file documented as of this encounter Procedures Procedure Name Priority Date/Time Associated Diagnosis Comments LYME IGG & IGM ANTIBODY Routine 07/06/2010 1:06 PM EDT Effusion of knee joint SCAN, PERIPHERAL BLOOD Routine 1 1:06 PM EDT DNA ANTIBODY (DOUBLE-STRANDED) Routine 07/06/2010 1:06 PM EDT DIFFERENTIAL, AUTOMATED Routine 07/06/2010 1:06 PM EDT BERNY TITER Routine 07/06/2010 1:06 PM EDT SEDIMENTATION RATE Routine 07/06/2010 1: 06 PM EDT Effusion of knee joint CBC (WITH DIFF) Routine 07/06/2010 1:06 PM EDT Effusion of knee joint RHEUMATOID FACTOR, QUANT Routine 07/06/2010 1:06 PM EDT Effusion of knee joint CRP, CARDIAC RISK (HS CRP) Routine 07/06/2010 1:06 PM EDT Effusion of knee joint BERNY ANTIBODY SCREEN Routine 07/06/2010 1 :06 PM EDT Effusion of knee joint documented in this encounter Results * REFLEX LAB-BERNY TITER (07/06/2010 1:06 PM EDT) [facility] BERNY Titer positive [facility] Comment: 1:160 Titer seen with Homogeneous/Diffuse pattern. ??Is suggestive of autoantibodies to nDNA, histones, or DNA-associated proteins. Blood specimen (specimen) 07/06/2010 1:06 PM EDT 07/06/2010 2:30 PM EDT Cole Brown MD IMMUNOLOGY ORDERABLE S Performing Organization Address City/[facility]/ZIP Co de Phone Number [facility] * DNA ANTIBODY (DOUBLE-STRANDED) (07/06/2010 1:06 PM EDT) [facility] DNA Ab (DS) Neg Neg [facility] Blood specimen (specimen) 07/06/2010 1:06 PM EDT 07/06/2010 2:30 PM EDT Cole Brown MD LAB SEND OUT ORDERAB LES [facility] * REFLEX LAB-SCAN, PERIPHERAL BLOOD (07/06/2010 1:06 PM EDT) Plat estimate Normal [facility] RBC Morphology Normal [facility]NE R [facility]NI[facility] Blood specimen (specimen) 07/06/2010 1:06 PM EDT 07/06/2010 1:12 PM EDT Cole Brown MD HEMATOLOGY ORDERABLE S [facility] HARPERENNIUM * (ABNORMAL) REFLEX LAB-A-DIFF (07/06/2010 1:06 PM EDT) Neutrophil % 45.4 33.0 - 73.0 % [facility] Neutrophil Absolute 5.42 1.50 - 8.00 x10(3)/mc L [facility] Lymph % 41.6 22.0 - 57.0 % [facility] Lymphocytes Abs 5.0 1.5 - 6.8 x10(3)/mc L [facility] Monocyte % 9.9 2.0 - 12.0 % [facility] Monocyte Abs 1.2(H) 0.2 - 1.0 x10(3)/mc L [facility] Eos % 2.3 0.0 - 7.0 % [facility] Eosinophils Abs 0.3 0.0 - 0.5 x10(3)/mc L [facility] Basophil % 0.4 0.0 - 2.0 % [facility] Baso Absolute 0.1 0.0 - 0.2 x10(3)/mc L [facility] Immature Gran % 0.40 0.00 - 0.66 % [facility] Comment: Immature granulocytes(IG's)percentage and absolute count will include metamyelocytes, myelocytes, and promyelocytes. Blood smears from CBCs yielding IG's will be scanned manually for concordance. If this scan disagrees with the automated IG or if promyelocytes are noted, a manual differential will be performed. Immature Gran Absolute 0.05 0.00 - 0.05 x10(3)/mc L [facility] Blood specimen (specimen) 07/06/2010 1:06 PM EDT 07/06/2010 1:12 PM EDT Cole Brown MD HEMATOLOGY ORDERABLE S Performing Organization Address [facility] Co de Phone Number [facility] * High Sensitivity CRP (07/06/2010 1:06 PM EDT) Pathologist [facility] C-Reactive Protein High Sensitivity 9.4 mg/L [facility] Comment: Interpretations: 1) For cardiac risk assessment, two values (fasting or nonfasting sample acceptable) taken at least 2 weeks apart, should be averaged to provide a more reliable estimate of marker level. ??This laboratory uses the recommendations from the AHA/CDC Scientific Statement for interpretations of future risks of cardiovascular events: ? <1.0 mg/L: low risk 1.0 - 3.0 mg/L: moderate risk >3.0 mg/L: high risk groups for future cardiovascular events 2) The general reference range of apparently healthy individuals using this test is <5.0 mg/L (derived from the test package insert) A few words of caution: For cardiac assessment, when a value >10 mg/L is encountered, there should be a search for an acute inflammatory condition or infection (in patients with acute inflammation, the concentration can increase to >500 mg/L). ??The >10 mg/L should be discarded if such a situation exists, since the risk for coronary heart disease cannot be provided, and a repeat specimen, taken at least two weeks after resolution of the acute inflammatory condition, may allow for appraisal of coronary risk information. References: 1. Benito CUBA et. al. ??AHA/CDC Scientific Statement: Markers of Inflammation and Cardiovascular Disease. ??Circulation 2003; 107:499-511 2. Shant PM. ??Clinical applications of C-reactive protein for cardiovascular disease detection and prevention. ??Circulation 2003; 107:363-369 Blood specimen (specimen) 07/06/2010 1:06 PM EDT 07/06/2010 1:12 PM EDT Cole Brown MD CHEMISTRY ORDERABLES Performing Organization Address [facility]/ZIP Co de Phone Number [facility] * Lyme IgG & IgM Antibody (07/06/2010 1:06 PM EDT) [facility] Lyme Antibody Negative Negative [facility] Blood specimen (specimen) 07/06/2010 1:06 PM EDT 07/07/2010 10:28 AM EDT Cole Brown MD IMMUNOLOGY ORDERABLE S Performing Organization Address [facility] Phone Number [facility] * (ABNORMAL) BERNY (07/06/2010 1:06 PM EDT) BERNY Pos Titer TF(A) Neg [facility] Blood specimen (specimen) 07/06/2010 1:06 PM EDT 07/06/2010 2:30 PM EDT Cole Brown MD LAB SEND OUT ORDERAB LES Performing Organization Address [facility] Phone Number [facility] * Rheumatoid factor, quant (07/06/2010 1:06 PM EDT) Rheumatoid Factor 10 <=14 IU/mL [facility] Blood specimen (specimen) 07/06/2010 1:06 PM EDT 07/06/2010 1:12 PM EDT Cole Brown MD CHEMISTRY ORDERABLES Performing Organization Address [facility] Phone Number [facility] * (ABNORMAL) Sedimentation rate (07/06/2010 1:06 PM EDT) Sedimentation Rate Automated 23(H) 0 - 10 mm/hr [facility] Blood specimen (specimen) 07/06/2010 1:06 PM EDT 07/06/2010 1:12 PM EDT Cole Brown MD HEMATOLOGY ORDERABLE S Performing Organization Address [facility] Phone Number [facility] * CBC (with Diff) (07/06/2010 1:06 PM EDT) White Blood Cell 12.0 4.5 - 14.0 x10(3)/mcL [facility] Red Blood Cell 4.72 4.00 - 5.20 x10(6)/mcL [facility] Hemoglobin 13.1 11.5 - 15.5 gm/dL [facility] Hematocrit 36.9 35.0 - 45.0 % [facility] Mean Cell Volume 78.2 75.0 - 93.0 fL [facility] Mean Cell Hemoglobin 27.8 25.0 - 33.0 pg [facility] Mean Cell Hemoglobin Concentration 35.5 32.0 - 36.5 gm/dL [facility] Platelet 366 145 - 370 x10(3)/mcL [facility] RDW Standard Deviation 36.8 35.0 - 46.0 fL [facility] RDW coefficient of variation 12.8 10.9 - 14.4 % [facility] Mean Platelet Volume 9.3 9.0 - 12.0 fL [facility] Blood specimen (specimen) 07/06/2010 1:06 PM EDT 07/06/2010 1:12 PM EDT Cole Brown MD HEMATOLOGY ORDERABLE S Performing Organization Address City/State/[facility] Co de Phone Number [facility] documented in this encounter Visit Diagnoses Diagnosis Effusion of knee joint- Primary Effusion of lower leg joint documented in this encounter Care Teams Branch Office Administrator Relationship Specialty Start Date End Date Michelet Cramer MD [address] [place] [address] PCP - General 04/27/10 07/16/15 documented as of this encounter
--- OUTSIDE RECORDS SUMMARY | 2023-12-15 02:25 | XMS_ITS | Encounter Summary ---
[place] [address] Care Team Providers Care Optical Instrument Repairer Name Role Phone Michelet Cramer MD Primary Care Provider [phone] Encounter Details Date Type Department Care Team (Late st Contact Info) Description 05/13/2010 10:50 AM EST - 05/13/2010 11:59 PM EST Hospital [place] [address] Social History Tobacco Use Types Packs/Day Years Used Date Smoking Tobacco: Never Assessed Sex and Gender Information Value Date Recorded Sex Assigned at Not on file Gender Identity Not on file Sexual Orientation Not on file documented as of this encounter Plan of Treatment Not on file documented as of this encounter Visit Diagnoses Not on filedocumented in this encounter Care Teams Optical Instrument Repairer Relationship Specialty Start Date End Date Michelet Craemr MD [address] [place] [address] PCP - General 04/27/10 07/16/15 documented as of this encounter
--- OUTSIDE RECORDS SUMMARY | 2023-12-15 02:25 | XMS_ITS | Encounter Summary ---
Author Organization [facility] Address [facility] [place] [address] Care Team Providers Care Fitter And Turner Name Role Phone Michelet Cramer MD Primary Care Provider [phone] Encounter Details Date Type Department Care Team (Latest Contact Info) Description 11/30/2010 10:35 AM EDT - 11/30/2010 12:55 PM EDT Hospital Encounter XRay at [address] [place] [address] Effusion of knee joint, left Social History [...] KNEE DIAGNOSTIC 1 OR 2 VIEW Routine 11/30/2010 10:48 AM EDT documented in this encounter Results * XR KNEE DIAGNOSTIC 1 OR 2 VIEW (11/30/2010 10:48 AM EDT) Anatomical Region Laterality Modality Knee N/A Radiographic Savana ging 11/30/2010 10:4 8 AM EDT Impressions 12/01/2010 9:16 AM EDT IMPRESSION: ?? 1. ??Persistence of a moderate-sized left knee effusion. 2. ??Newly developed bony proliferation and irregularity along the anterior aspect of the femoral condyle, representing any ??combinations of reactive periostitis and healing osteochondral injury 3. ??The intraarticular body seen on the MRI is not calcified. ??No osteochondral fracture fragment seen. Narrative 12/01/2010 9:16 AM EDT STANDING AP IMAGE OF BOTH KNEES AND LATERAL VIEW OF THE LEFT KNEE, 11/30/10: HISTORY: ?? synovitis COMPARISON STUDY: ??MRI from June 2010. FINDINGS: ??There is a moderate-sized left knee effusion with surrounding soft tissue swelling. Newly developed proliferative bone formation or osteophyte formation along the anterior aspect of the lateral femoral condyle represents periostitis, osteophyte formation or healing osteochondral injury. ??No calcified bodies. The right knee appears normal. ?? Procedure Note Lorene Gan MD - 12/01/2010 STANDING AP IMAGE OF BOTH KNEES AND LATERAL VIEW OF THE LEFT KNEE,11/30/10: HISTORY: synovitis COMPARISON STUDY: MRI from June 2010. FINDINGS: There is a moderate-sized left knee effusion with surroundingsoft tissue swelling. Newly developed proliferative bone formation orosteophyte formation along the anterior aspect of the lateral femoral condylerepresents periostitis, osteophyte formation or healing osteochondral injury. No calcified bodies. The right knee appears normal. IMPRESSION IMPRESSION: 1. Persistence of a moderate-sized left knee effusion. 2. Newly developed bony proliferation and irregularity along the anterior aspect of the femoral condyle, representing any combinations of reactive periostitis and healing osteochondral injury 3. The intraarticular body seen on the MRI is not calcified. Noosteochondral fracture fragment seen. Cole Brown MD IMG DX ORDERABLES documented in this encounter Visit Diagnoses Diagnosis Effusion of knee joint, left Effusion of lower leg joint documented in this encounter Care Teams Fitter And Turner Relationship Specialty Start Date End Date Michelet Cramer MD [address] [place] [address] PCP - General 04/27/10 07/16/15 documented as of this encounter
--- OUTSIDE RECORDS SUMMARY | 2023-12-15 02:25 | XMS_ITS | Encounter Summary ---
Author Organization [facility] Address [address] [place] [address] Care Team Providers Care Stave Inspector Name Role Phone Unknown, Provider Primary Care Provider [phone] Encounter Details Date Type Department Care Team (Late st Contact Info) Description 04/27/2017 Results Only [facility] [phone] Misael Rivas, [address] [place], [place] [id number] Social History Tobacco Use Types Packs/Day Years Used Date Smoking Tobacco: Never Assessed Sex and Gender Information Value Date Recorded Sex Assigned at Not on file Gender Identity Not on file Sexual Orientation Not on file documented as of this encounter Plan of Treatment Not on file documented as of this encounter Procedures Procedure Name Priority Date/Time Associated Diagnosis Comments SURGICAL PATHOLOGY Routine 04/27/2017 9:20 EST documented in this encounter Results * SURGICAL PATHOLOGY (04/27/2017 9:20 EST) Pathology Report: SURGICAL PATHOLOGY REPORT Reports generated via electronic interface contain original data; however they are lacking the format of the original report. Caution should be taken when reading/interpret ing unformatted reports. Name: ? ANDREA HAGAN ? Accession #: ? [id number] ? : ? 2000 (Age: 16) ??F ? Collect Date: ? 04/27/2017 ? Location: ? [facility] ? Receive Date: ? 04/28/2017 ? Provider: MISAEL RIVAS DO Copy to: RAMY LAM MD ? Final Pathologic Diagnosis: A. ??PALATINE TONSIL, RIGHT, TONSILLECTOMY: - Lobular soft tissue consistent with tonsil. ??Gross only. ?? B. ??PALATINE TONSIL, LEFT; TONSILLECTOMY: - Lobular soft tissue consistent with tonsil. ??Gross only. Document reviewed and electronically signed by: CON KELLY MD Report ??Date: 05/01/2017 15:10 By the signature above, the attending physician certifies that he/she has personally conducted a gross and/or microscopic examination of the described specimens and rendered or confirmed the above diagnosis. Specimen(s) Received: A. ??Right tonsil B. ??Left tonsil Clinical History: Chronic tonsillitis; clinical diagnosis code: ??J35.8, J35.1 Gross Description: A. ?Received in formalin labelled with proper patient identification (initials T, R) and A. right tonsil is a palatine tonsil (3.3 x 2.0 x 1.3 cm). The mucosa is evans-pink and glistening with prominent crypts. Serial sections reveal lobular homogeneous tissue without abnormality. No sections submitted. Gross only. B. ?Received in formalin labelled with proper patient identification (initials T, R) and B. left tonsil is a palatine tonsil (2.7 x 2.0 x 1.4 cm). The mucosa is evans-pink and glistening with prominent crypts. Serial sections reveal lobular homogeneous tissue without abnormality. No sections submitted. Gross only. ZOILA Clayton (ASCP) 04/28/2017 10:28 AM End of Report [facility] 04/27/2017 9:20 EST 04/28/2017 9:20 EST Misael Rivas DO PATHOLOGY ORDER LES [facility] [address] [place] [address] documented in this encounter Visit Diagnoses Not on filedocumented in this encounter Care Teams Stave Inspector Relationship Specialty Start Date End Date Unknown, Provider, PCP - General 04/28/17 documented as of this encounter
--- OUTSIDE RECORDS SUMMARY | 2023-12-15 02:25 | XMS_ITS | Encounter Summary ---
Author Organization [facility] Address [facility] [place] [address] Care Team Providers Care Bat Boy/Girl Name Role Phone Michelet Cramer MD Primary Care Provider [phone] Reason for Visit * Reason Comments Follow-up left knee pain and s welling Encounter Details Date Type Department Care Team (Late st Contact Info) Description 09/01/2010 11:30 AM EDT Office Visit [facility] [address] [place] [address] MD [facility] [address] PEDIATRIC [place] [address] Pain in joint of left knee (Primary Dx); Swelling of knee joint, left; Hemarthrosis; Positive BERNY (antinuclear antibody) Discharge Disposition: Home Social History Tobacco Use [...] Sign Reading Time Taken Comments Blood Pressure 121/59 09/01/2010 11:21 AM EDT Pulse 69 09/01/2010 11:21 AM EDT Temperature 36.4 ??C (97.5 ??F) 09/01/2010 1 1:21 AM EDT Respiratory Rate - - Oxygen Saturation - - Inhaled Oxygen Concentration - - Weight 54.4 kg (120 lb) 09/01/2010 11:2 1 AM EDT as reported by mom prior to surgery Height 137.2 cm (4' 6) 09/01/2010 11:2 1 AM EDT Body Mass Index 28.93 09/01/2010 11:21 AM EDT Body Mass Index Percentile 98.96% 09/01 11:21 AM EDT Growth Chart: [facility] (Girls, 2- 20 Years) documented in this encounter Progress Notes * Clare Way MD - 09/01/2010 3:25 PM EDT Subjective: Patient ID: Samreen Martinez is a 10 y.o. female who comes to clinic for F/U accompanied by her mother. HPI: Samreen's diagnosis has been unclear. She was followed by orthopedics for prolonged knee symptoms that initially seemed to be subluxing patellae. She then presented to them with acute knee swelling and increased pain. Her BERNY was positive and AIDAN was considered. Because her diagnosis was unclear, an arthrocentesis was performed and bloody fluid was obtained. An MRI had shown no evidence of villonodular synovitis. Although it was not normal, Dr. Brown's initial interpretation was no structural abnormality. She underwent a coagulation work up that was WNL. She was then on naproxen for almosta month and her symptoms dramatically improved. However, because of the unexplained hemarthrosis and the ? of persistent mechanical symptoms, she underwent arthroscopy yesterday. A phone call from Dr. Brown suggested findings of synovitis without other abnormalities, but Samreen comes to clinic todayin a full leg cast. Her mother reports that cartilage had to be pinned, suggesting osteochondritis desiccans. She does not know if steroids were injected. The surgical note does not describe the synovitis reported to me verbally. There is no mention of intra articular steroid injection. Mom reports that Samreen had increased swelling and pain of her left knee prior to the arthroscopy after they DC her naproxen for abdominal pain. They did not call us. Reviewing her symptoms, she was constipated at the time. She has been on Jessi lax in the past, but now uses it only prn. Today she cannot recall the details of her symptoms to sort out NSAID abdominal pain from constipation. Review of Systems Constitutional: Negative. HENT: Negative. Eyes: Negative. Respiratory: Negative. Cardiovascular: Negative. Gastrointestinal: Positive for abdominal pain and constipation. Negative for blood in stool. Genitourinary: Negative. Musculoskeletal: See HPI. Skin: Negative. Neurological: Negative. Hematological: Negative. Psychiatric/Behavioral: Negative. Objective: Physical Exam Constitutional: She appears well-developed and well-nourished. She was sitting in a wheel chair with a full leg cast on her left leg. HENT: Mouth/Throat: Mucous membranes are moist. Oropharynx is clear. Eyes: Conjunctivae are normal. Neck: FROM without adenopathy, masses or pain at the EOM. Cardiovascular: Normal rate and regular rhythm. No murmur heard. Pulmonary/Chest: Effort normal and breath sounds normal. No respiratory distress. Abdominal: Soft. She exhibits no mass. There is no hepatosplenomegaly. No tenderness. Musculoskeletal: A detailed joint exam was performed except for her left LE, which was in a cast. All joints showed FROM without pain at the EOM or swelling. Neurological: She is alert. Skin: Skin is warm and dry. No rash noted. Assessment: 1. 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 The latter diagnosis would give her pain, swelling and loose body symptoms. I would not expect a hemarthrosis. It remains unclear whether there was or was not synovitis seen at arthroscopy. 2. Abdominal pain, ? constipation versus NSAID gastritis, now resolved. Plan: 1. I have called Elizabeth in Dr. Brown's office for more information. If she had synovitis, she will need to resume a NSAID and eight weeks in a cast will likely result in a joint contracture. If there was no synovitis, then she does not need a NSAID. 2. Resume regular Jessi lax for now to eliminate constipation as a cause of abdominal pain. 2. She leaves Monday to spend the rest of the summer with dad in [place]. Mom feels dad would keep us informed of any GI issues, if we do need to resume a NSAID. 3. I will call mom as soon as I hear from Dr. Brown. No problem-specific visit notes found for this encounter. documented in this encounter Plan of Treatment Not on file documented as of this encounter Visit Diagnoses Diagnosis Pain in joint of left knee- Primary Pain in joint, lower leg Swelling of knee joint, left Effusion of lower leg joint Hemarthrosis Hemarthrosis, site unspecified Positive BERNY (antinuclear antibody) Other and unspecified nonspecific immunological findings documented in this encounter Care Teams Bat Boy/Girl Relationship Specialty Start Date End Date Michelet Cramer MD [address] [facility] [place] [address] PCP - General 04/27/10 07/16/15 documented as of this encounter
--- OUTSIDE RECORDS SUMMARY | 2023-12-15 02:25 | XMS_ITS | Clinical Summary ---
Author Organization [facility] Address [address] [place] [address] Care Team Providers Care Yacht Master Name Role Phone Unknown, Provider Primary Care Provider Social History Tobacco Use Types Packs/Day Years Used Date Smoking Tobacco: Never Assessed Interpersonal Safety Answer Date Record ed Physically Hurt Never 10/21/2019 Verbally Threaten Not on file 10/21/2019 Sex and Gender Information Value Date Recorded Sex Assigned at Not on file Gender Identity Not on file Sexual Orientation Not on file Plan of Treatment Health Maintenance Due Date Last Done Comments Hepatitis C Screen 2000 Hepatitis B Vaccine (1 of 3 - 19+ 3-dose series) 05/30 COVID-19 Vaccine ( season) 2022 Care Teams Yacht Master Relationship Specialty Start Date End Date Unknown, Provider, PCP - General 04/28/17
--- OUTSIDE RECORDS SUMMARY | 2023-12-15 02:25 | XMS_ITS | Encounter Summary ---
Author Organization [facility] Address [facility] [place] [address] Care Team Providers Care Sports Marketer Name Role Phone Michelet Cramer MD Primary Care Provider [phone] Encounter Details Date Type Department Care Team (Late st Contact Info) Description 04/30/2010 2:40 PM EST Office Visit Orthopaedics at [facility] [place] [address] Cole Brown MD [facility] [place] [address] Discharge Disposition: Home Social History Tobacco Use Types Packs/Day Years Used Date Smoking Tobacco: Never Assessed Sex and Gender Information Value Date Recorded Sex Assigned at Not on file Gender Identity Not on file Sexual Orientation Not on file documented as of this encounter Plan of Treatment Not on file documented as of this encounter Procedures Procedure Name Priority Date/Time Associated Diagnosis Comments DNA ANTIBODY (DOUBLE-STRANDED) Routine 04/30/2010 4:49 PM EST DIFFERENTIAL, AUTOMATED Routine 04/30/2010 4:49 PM EST SEDIMENTATION RATE Routine 04/30/2010 4: 49 PM EST CBC (WITH DIFF) Routine 04/30/2010 4:49 PM EST RHEUMATOID FACTOR, QUANT Routine 04/30/2010 4:49 PM EST CRP, CARDIAC RISK (HS CRP) Routine 04/30/2010 4:49 PM EST BERNY ANTIBODY SCREEN Routine 04/30/2010 4 :49 PM EST documented in this encounter Results * DNA ANTIBODY (DOUBLE-STRANDED) (04/30/2010 4:49 PM EST) DNA Ab (DS) Neg Neg CERNER MILLENNIUM Blood specimen (specimen) 04/30/2010 4:49 PM EST 05/03/2010 8:28 AM EST Cole Brown MD LAB SEND OUT ORDERAB LES CERNER LEROYENNIUM * REFLEX LAB-A-DIFF (04/30/2010 4:49 PM EST) Neutrophil % 36.3 33.0 - 73.0 % CERNER MILLENNIUM Neutrophil Absolute 3.33 1.50 - 8.00 x10(3)/mcL CERNER MILLENNIUM Lymph % 54.8 22.0 - 57.0 % CERNER MILLENNIUM Lymphocytes Abs 5.0 1.5 - 6.8 x10(3)/mcL CERNER MILLENNIUM Monocyte % 6.1 2.0 - 12.0 % CERNER MILLENNIUM Monocyte Abs 0.6 0.2 - 1.0 x10(3)/mcL CERNER MILLENNIUM Eos % 2.1 0.0 - 7.0 % CERNER MILLENNIUM Eosinophils Abs 0.2 0.0 - 0.5 x10(3)/mcL CERNER MILLENNIUM Basophil % 0.5 0.0 - 2.0 % CERNER MILLENNIUM Baso Absolute 0.1 0.0 - 0.2 x10(3)/mcL CERNER MILLENNIUM Immature Gran % 0.20 0.00 - 0.66 % CERNER MILLENNIUM Comment: Immature granulocytes(IG's)percentage and absolute count will include metamyelocytes, myelocytes, and promyelocytes. Blood smears from CBCs yielding IG's will be scanned manually for concordance. If this scan disagrees with the automated IG or if promyelocytes are noted, a manual differential will be performed. Immature Gran Absolute 0.02 0.00 - 0.05 x10(3)/mcL CERNER MILLENNIUM Blood specimen (specimen) 04/30/2010 4:49 PM EST 04/30/2010 4:56 PM EST Cole Brown MD HEMATOLOGY ORDERABLE S Performing Organization Address [facility] Phone Number [facility] * (ABNORMAL) BERNY (04/30/2010 4:49 PM EST) BERNY Pos(A) Neg [facility] Comment: 1:80 Titer seen with Homogeneous/Diffuse pattern. ??Is suggestive of autoantibodies to nDNA, histones, or DNA-associated proteins. Blood specimen (specimen) 04/30/2010 4:49 PM EST 05/03/2010 8:28 AM EST Cole Brown MD LAB SEND OUT ORDERAB LES Performing Organization Address [facility] Phone Number [facility] * RHEUMATOID FACTOR (04/30/2010 4:49 PM EST) Rheumatoid Factor <10 <=14 IU/mL [facility] Blood specimen (specimen) 04/30/2010 4:49 PM EST 04/30/2010 4:56 PM EST Cole Brown MD CHEMISTRY ORDERABLES Performing Organization Address [facility] Phone Number [facility] * (ABNORMAL) SEDIMENTATION RATE, AUTOMATED (04/30/2010 4:49 PM EST) Sedimentation Rate Automated 11(H) 0 - 10 mm/hr [facility] Blood specimen (specimen) 04/30/2010 4:49 PM EST 04/30/2010 4:56 PM EST Cole Brown MD HEMATOLOGY ORDERABLE S Performing Organization Address [facility] Phone Number [facility] * CBC (04/30/2010 4:49 PM EST) White Blood Cell 9.2 4.5 - 14.0 x10(3)/mcL CERNER MILLENNIUM Red Blood Cell 4.48 4.00 - 5.20 x10(6)/mcL CERNER MILLENNIUM Hemoglobin 12.5 11.5 - 15.5 gm/dL CERNER MILLENNIUM Hematocrit 35.8 35.0 - 45.0 % CERNER MILLENNIUM Platelet 294 145 - 370 x10(3)/mcL CERNER MILLENNIUM RDW Standard Deviation 36.8 35.0 - 46.0 fL CERNER MILLENNIUM RDW coefficient of variation 12.7 10.9 - 14.4 % CERNER MILLENNIUM Mean Platelet Volume 10.0 9.0 - 12.0 fL CERNER MILLENNIUM Blood specimen (specimen) 04/30/2010 4:49 PM EST 04/30/2010 4:56 PM EST Cole Brown MD HEMATOLOGY ORDERABLE S OSCAR HARPERENNIUM * HIGH SENSITIVITY CRP (04/30/2010 4:49 PM EST) C-Reactive Protein High Sensitivity 0.4 mg/L CERNER MILLENNIUM Comment: Interpretations: 1) For cardiac risk assessment, [...] prevention. ??Circulation 2003; [phone]:[id number] Blood specimen (specimen) 04/30/2010 4:49 PM EST 04/30/2010 4:56 PM EST Cole Brown MD CHEMISTRY ORDERABLES Performing Organization Address City/State/[facility] Co de Phone Number [facility] documented in this encounter Visit Diagnoses Not on filedocumented in this encounter Care Teams Sports Marketer Relationship Specialty Start Date End Date Michelet Cramer MD [address] [place] [address] PCP - General 04/27/10 07/16/15 documented as of this encounter
--- OUTSIDE RECORDS SUMMARY | 2023-12-15 02:25 | XMS_ITS | Encounter Summary ---
Author Organization [facility] Address [facility] [place] [address] Care Team Providers Care Certified Massage Therapist Name Role Phone Michelet Cramer MD Primary Care Provider [phone] Encounter Details Date Type Department Care Team (Late st Contact Info) Description 08/19/2010 Orders [place] [address] Cole Brown MD [facility] [place] [address] Knee pain Social History Tobacco Use Types Packs/Day [...] of this encounter Visit Diagnoses Diagnosis Knee pain Pain in joint, lower leg documented in this encounter Care Teams Certified Massage Therapist Relationship Specialty Start Date End Date Michelet Cramer MD [address] [place] [address] PCP - General 04/27/10 07/16/15 documented as of this encounter
--- OUTSIDE RECORDS SUMMARY | 2023-12-15 02:25 | XMS_ITS | Encounter Summary ---
Author Organization [facility] Address [address] [place] [id number] Care Team Providers Care Fishing Guide Name Role Phone Unavailable Primary Care Provider Unavailabl e Encounter Details Date Type Department Care Team (Latest Contact Info) Description 04/27/2017 15:24 EST - 04/27/2017 23:59 EST Hospital Encounter [address] [address] Unknown, Provider, Discharge Disposition: Home or Self Care Social History Tobacco Use Types Packs/Day Years Used Date Smoking Tobacco: Never Assessed Sex and Gender Information Value Date Recorded Sex Assigned at Not on file Gender Identity Not on file Sexual Orientation Not on file documented as of this encounter Discharge Disposition Disposition Code Departure Means Destination Home or Self Residential documented in this encounter Plan of Treatment Not on file documented as of this encounter Visit Diagnoses Not on filedocumented in this encounter
--- OUTSIDE RECORDS SUMMARY | 2023-12-15 02:25 | XMS_ITS | Encounter Summary ---
Author Organization [facility] Address [facility] [place] [address] Care Team Providers Care Armament Mechanic Name Role Phone Michelet Cramer MD Primary Care Provider [phone] Reason for Visit * Reason Onset Date Comments Other 09/09/2010 patient needs hc k Encounter Details Date Type Department Care Team (Late st Contact Info) Description 09/09/2010 Telephone [place] [id number] Cole Brown MD [facility] DR [place] [address] Other (patient needs hck) Social History Tobacco Use Types Packs/Day Years [...] encounter Miscellaneous Notes * Telephone Encounter - Aury Heather Coe - 09/09/2010 3:31 PM EDT Samreen has a follow up appointment on September 23 for (ARTHROSCOPY KNEE, DIAGNOSTIC CAST APPLICATION, LONG LEG (THIGH TO TOES) ARTHROSCOPY KNEE CHONDROPLASTY) a HCK. Mother states Samreen is in [place] until The end of October and would like for her to see an Orthopaedic Surgeon there(with Father and Step mother, but will need a Letter of what the Doc should be looking for or what he/she should be doing with Samreen. I spoke with Dr Brown and he would like Elizabeth to call mom([phone]) and discuss what should or will happen.Elizabeth to discuss with Dr Brown for the decision of what the plan will be. * Telephone Encounter - Heather Jeffers - 09/09/2010 3:22 PM EDT Samreen is scheduled for a HCK on 7.7 follow up of a knee scope documented in this encounter Plan of Treatment Not on file documented as of this encounter Visit Diagnoses Not on filedocumented in this encounter Care Teams Armament Mechanic Relationship Specialty Start Date End Date Michelet Cramer MD [address] [place] [address] PCP - General 04/27/10 07/16/15 documented as of this encounter
--- OUTSIDE RECORDS SUMMARY | 2023-12-15 02:25 | XMS_ITS | Encounter Summary ---
Author Organization [facility] [place] [address] Care Team Providers Care Grounds Crew Supervisor Name Role Phone Michelet Cramer MD Primary Care Provider [phone] Encounter Details Date Type Department Care Team (Latest Contact Info) Description 08/31/2010 6:51 AM EDT - 08/31/2010 1:34 PM EDT Hospital Encounter [place] [address] Brendan Navarro MD [facility] [place] [address] Knee pain Discharge Disposition: Home Social History [...] Taken Comments Blood Pressure - - Pulse 90 08/31/2010 12:24 PM EDT Temperature 36.2 ??C (97.2 ??F) 08/31/2010 11:30 AM E DT Respiratory Rate 20 08/31/2010 12:24 PM EDT Oxygen Saturation 96% 08/31/2010 12:24 PM EDT Inhaled Oxygen Concentration - - Weight 54 kg (119 lb 0.8 oz) 08/31/2010 7:21 AM EDT Height - - Body Mass Index - - documented in this encounter Discharge Instructions * Discharge Instructions* Ervin Kaur RN - 08/31/2010 12:53 PM EDT 1. Go home and rest. You may [...] soreness, which usually goes away in 12-24hours. [facility] - Information Same Day Surgery * Patient Instructions* Cosmo Scott - 08/31/2010 11:34 AM EDT Same Day Surgery Post Operative Discharge Instructions Diagnosis: Status Post arthroscopy L knee and open fixation of chondral flap Activity: Touchdown weightbearing LLE. You should keep your affected extremity elevated above the heart for 48 hours after surgery Diet: Resume your regular diet, but increase your intake of fluids and fiber while you are on narcotic pain meds to prevent constipation. Medications: You will be discharge on a narcotic pain medication which can only be refilled in person in the orthopaedics clinic. The pain medication you are on can cause constipation so increase your intake of fluids and fiber while you are on them. Wound/Dressing: Your original cast should be kept on until they return to clinic. The cast should be kept clean and dry. Do not get it wet. Please call the clinic if you develop fevers, chills, night sweats, nausea, vomiting, wound discharge, numbness, tingling, increased pain, pain with passive or active extension of digits in the affected extremity, or other questions or concerns. Follow up: Follow up with with Dr. Navarro will be arranged and you will be contacted with the appt. Call if you have not heard from us in 48 hours. If you have questions please call [phone] documented in this encounter Medications at Time of Discharge Medication Sig Dispensed Refills Start Date End Date hydroCODone-acetaminophe n (VICODIN) 5-500 mg per tablet Take 1 tablet by mouth every 6 hours as needed for Pain for 10 days. 30 tablet 0 08/31/2010 09/10/2010 naproxen (NAPROSYN) 375 mg tabletIndications:Effusi on of knee joint Take 1 tablet by mouth 2 times daily (with meals). 60 tablet 3 07/07/2010 09/01/2010 documented as of this encounter Progress Notes * Ervin Kaur RN - 08/31/2010 1:04 PM EDT Pt up and ambulated to restroom on crutches without difficulty. Back to bed. Discharge instructionsgiven. documented in this encounter H&P Notes * Parveen Obrien MD - 08/31/2010 7:54 AM EDT Assessment: History and Physical Examination are current and have been reviewed. There has been no interval change in the patient's health. Plan: Will proceed to Operating room for scheduled surgical intervention * Parveen Obrien MD - 08/31/2010 7:53 AM EDT Pre-operative History and Physical Examination CC: Pre-op eval for surgery Hx: recurrent knee effusions on Left PMHx: Patient Active Problem List Diagnoses Code ??? Effusion of knee joint, left 719.06AK ??? Effusion of knee joint 719.06E Meds: No current facility-administered medications on file. All: Allergies Allergen Reactions ??? Sulfa (Sulfonamide Antibiotics) ROS: Neuro: Neg CV: neg Pulm: neg Skin: Neg Abd: Neg PE: Gen: NAD, alert and oriented CV: RRR, no M/R/G Pulm: CTA B Abd: soft, nt, ND Labs: Reviewed (X) A/P: Cleared for surgery Plan: Proceed to OR for operative intervention documented in this encounter Miscellaneous Notes * Miscellaneous - Provider, Dk - 09/01/2010 4:01 PM EDT * Miscellaneous - Provider, Dk - 09/01/2010 3:40 PM EDT * Op Note - Cosmo Scott - 08/31/2010 12:03 PM EDT [facility] [place]ative [place] Patient Name: Andrea Hagan : [id number] MR#: [id number] Case Date: 08/31/2010 Surgeon: Surgeon(s) and Role: * BRENDAN NAVARRO MD - Primary * COSMO SCOTT MD - Surgeon Chief Preoperative diagnosis: L knee effusion with a question of internal derangement Postoperative diagnosis: L knee: -Synotvitis -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 Condition: doing well without problems (Please see the Surgical Encounter Summary for any Implant and Specimen details pertinent to this patient.) HPI/Surgical Indications: INDICATIONS: Andrea is a 10-year-old little girl with recurrent knee effusions and pain, who had a previous tap that showed luiz blood. After a thorough discussion of the risks and benefits, the decision was made to proceed to surgery for diagnostic arthroscopy. DESCRIPTION OF PROCEDURE: After being identified, marked, and having preoperative consent confirmed in the preoperative holding area, the patient proceeded to the operative theater. General endotracheal anesthesia was induced. She was transferred to the operating table. A preoperative time-out was held and the patient received preoperative antibiotics. A high left thigh tourniquet was placed. Her left leg was prepped and draped in the sterile fashion. We started by withdrawing fluid from the knee. A 60-mL syringe attached to an 18-gauge needle was inserted into the suprapatellar pouch and 10 mL of lightly blood-tinged, straw-colored fluid was withdrawn. We then proceeded to make a lateral portal in the soft spot lateral to the patellar tendon and just below the patella. An incision was made with a #15 blade. This scope trocar was introduced and then the scope itself was introduced. The knee was insufflated with normal saline and a diagnostic arthroscopy was begun. There was significant red synovitis surrounding the suprapatellar pouch. There was no significant chondral damage to the patella or the femoral trochlea. There was synovitis in the medial gutter. The scope was advanced into the medial compartment of the knee with valgus pressure. There was no chondral degeneration or meniscal tears evident. Under direct visualization with the scope an #18-gauge needle was used to create a medial portal followed by a #15 blade which was visible inside the joint. A grabber was introduced and samples of the medial and superior synovium were taken for biopsy. Of note, the previously withdrawn synovial fluid was also sent for culture. We then advanced the scope into the notch. There was synovitis surrounding the base of the ACL, but it was intact. We then placed the patient in the [id number] position and advanced the scope into the lateral compartment of the knee. There was no chondral damage or meniscal tears. We then advanced into the lateral gutter. In the lateral gutter, there was a small loose body. A superolateral portal was made under direct visualization with an #18-gauge needle and then a #15 blade, and a grabber was introduced to remove this loose body. We also took a synovial biopsy of the lateral gutter, and moving up the lateral condyle, a large 2 x 2-cm area of eroded cartilage and eroded, injected bone was encountered. This appeared to erode into the normal chondral contour of the lateral condyle. It did not appear to be in contact with the weightbearing portion of the lateral plateau. A probe was introduced in the superolateral portal and the defect examined. In the body of the defect, the underlying bone was somewhat soft. The cartilage just on the medial border of the defect was delaminating and a probe could be used underneath it. There were further small chondral loose body flakes that were visible sloughing off of the lateral margin of the defect. There was a small area of villous synovitis just adjacent to this. The remaining loose bodies were removed. At this point, we sought an intraoperative consultation with Dr. Benito Zhang. After discussing the options, we decided this was most consistent with some sort of erosive arthritis and potentially consistent with her juvenile rheumatoid arthritis diagnosis. We decided to create a open mini-lateral incision. The scope was withdrawn and a #15-blade was used to extend the incision proximally and distally from the lateral portal. It was brought down to the level of the retinaculum which was opened with a knife, until the defect in the lateral condyle was visible. We used a Ranulfo pick to create bony bleeding underneath the edge of the chondral flap and then used bioabsorbable tacks in three different places over the lateral aspect of the chondral flaps to tack it into place. These were cut to 20 mm each and buried flush or deep to the surface of the articular cartilage. This appeared to tack down the chondral flap quite well. We took a core biopsy of the bed of the defect and the Cylinder of bone was sent for pathology. We then copiously irrigated the knee and closed the arthrotomy with 0 Vicryls, we closed the subcutaneous tissue with 3-0 Vicryls, and the arthrotomy portals and the skin of the mini-open incision were closed with 3-0 Prolene. A dry sterile dressing was placed over the wounds and the patient was then placed into a well-padded long-leg cast with the knee in approximately 20 to 30 degrees of flexion to unload the area from joint pressure. The specimens were sent for pathology and culture. The patient's anesthesia was reversed and she was discharged to the PACU in stable condition. * Brief Op Note - Brendan Navarro MD - 08/31/2010 11:39 AM EDT Brief Operative Note Patient Name: Andrea Hagan : [id number] MR#: [id number] Case Date: 08/31/2010 Surgeon: Surgeon(s) and Role: * BRENDAN NAVARRO MD - Primary * COSMO SCOTT MD - Surgeon Chief Preoperative diagnosis: knee effusion, ? internal derangement Postoperative diagnosis: knee effusion, ? internal derangement Procedure(s): ARTHROSCOPY KNEE, DIAGNOSTIC CAST APPLICATION, LONG LEG (THIGH TO TOES) ARTHROSCOPY KNEE CHONDROPLASTY General Estimated Blood Loss: 50cc Drains: none Disposition: awakened from anesthesia, extubated and taken to the recovery room in a stable condition, having suffered no apparent untoward event. Condition: doing well without problems (Please see the Surgical Encounter Summary for any Implant and Specimen details pertinent to this patient.) * OR Attestation - Brendan Navarro MD - 08/31/2010 11:31 AM EDT I was the attending physician supervising the resident in the above care and I was present with theresident for the entire procedure. * Miscellaneous - Provider, Scanning - 08/31/2010 8:10 AM EDT documented in this encounter Plan of Treatment Not on file documented as of this encounter Procedures Procedure Name Priority Date/Time Associated Diagnosis Comments ARTHROSCOPY KNEE, DRILLING & FIXATION OF OCD Routine 09/01/2010 8:28 AM EDT Knee pain ARTHROSCOPY KNEE CHONDROPLASTY Routine 09/01/2010 8:28 AM EDT Knee pain CAST APPLICATION, LONG LEG Routine 09/01/2010 8:28 AM EDT Knee pain FLUID REVIEW REPORT Routine 08/31/2010 1 2:44 PM EDT SURGICAL PATHOLOGY REPORT Routine 08/31/2010 11:10 AM EDT SURGICAL PATHOLOGY REPORT Routine 08/31/2010 11:10 AM EDT CELL COUNT BODY FLUID Routine 08/31/2010 10:00 AM EDT ANAEROBIC CULTURE Routine 08/31/2010 9:5 1 AM EDT BODY FLUID CULTURE, AEROBIC Routine 08/31/2010 9:51 AM EDT BODY FLUID CULTURE, AEROBIC & ANAEROBIC Routine 08/31/2010 9:50 AM EDT ARTHROSCOPY KNEE, DRILLING & FIXATION OF OCD (WRVU 10.16) 08/31/2010 9:17 AM EDT Knee pain ARTHROSCOPY KNEE CHONDROPLASTY (WRVU 8.3) 08/31/2010 9:17 AM EDT Knee pain CAST APPLICATION, LONG LEG (THIGH TO TOES) (WRVU 1.4) 08/31/2010 9:17 AM EDT Knee pain ARTHROSCOPY KNEE, DIAGNOSTIC (WRVU 5.19) 08/31/2010 9:17 AM EDT Knee pain documented in this encounter Results * FLUID REVIEW REPORT (08/31/2010 12:44 PM EDT) Fluid Review Report ? [facility] ? Provider: ?? BRENDAN NAVARRO ? Pt. Name: ?? ANDREA HAGAN ?LEMUEL ? Acc #: ?[id number] ? Pt. ? Col Date: ?? 08/31/2010 ? /Sex: ?2000,(10 years),Female ? Rec Date: ?? 08/31/2010 ? LOC: ?[facility] ? MORPHOLOGIC HEMATOLOGY: FLUID REVIEW ? ---Clinical Information--- ? Left knee effusion ? ---Preparation--- ? Microscopic Description: ?WBC/ul: ?373 ?RBC/uL ? _ ? 200 cells counted on cytocentrifuge preparation. ? # ? % ?Neut: ??10 ?5 ?Lymph: 102 ? 51 ?Phag: ??76 ?38 ?Meso: ??_ ?Eos: ?? _ ?Baso: ??_ ?Synovial: 12 ? 6 ? ---Interpretation--- ? SPECIMEN SUBMITTED: ? INTERNAL LABORATORY BODY FLUID REVIEW ? A Otero's stained smear of this left knee fluid has been referred to a ? pathologist by the hematology laboratory for internal review. ??The review ? agreed with the results that have been reported on this patient's ? laboratory chart. ??THIS IS NOT A CYTOLOGY REPORT. ? 08/31/10 ? [facility] ? 08/31/10 Verified by: ? Jas Recio MD ? Hematopathologist ? (Electronic Signature) ? The attending pathologist whose signature appears on this report has ? reviewed all diagnostic slides and has edited the gross and/or ? microscopic portion of the report in rendering the final pathologic ? diagnosis. OSC[facility] HEREDIA 08/31/2010 12:4 4 PM EDT Brendan Navarro MD PATHOLOGY/CYTOLOGY [place] [facility] OSCAR HEREDIA * Surgical Pathology Report (08/31/2010 11:10 AM EDT) Surgical Pathology Report [id number] ? Location: [facility]; [facility]; The signing pathologist has (i) examined the relevant preparation(s) for the specimen(s) and (ii) rendered or confirmed the diagnosis(es). . ?Pathology Surgical Pathology Final Report Clinical Information Specimen Submitted: A - Left knee loose bodies B - Left knee bone Clinical History/Diagnos is: Left knee affusion Gross Description A - Labeled/Fixativ e: Left knee loose bodies, fresh. Qty/Size/Weight : ?Multiple, ranging from 0.3 to 0.6 cm. Tissue Description: ?? White and yellow nodular tissues consisting ?of soft tissue and cartilage. Sections/Proces sing: ??(T1) B - Labeled/Fixativ e: Left knee bone, fresh. Qty/Size/Weight : ?Two, averaging 0.8 x 0.3 cm. Tissue Description: ?? [place], cylindrical cores of bone. Sections/Proces sing: ??(T1) following decalcification . ?? vms/SNS Microscopic Description Slides reviewed, microscopic description not recorded. Diagnosis A - Left knee loose bodies: ?Cartilagenous Loose bodies. ?Synovium with detritic synovitis and hemosiderin laden macrophages B - Left knee bone: ?Fragments of bone and physeal type cartilage with enchondral ossifcation CR-0 09/03/10 VAM 09/03/10 Verified by: ? Timothy ROSE, Sean Granados ?Pathologist ?(Electronic Signature) The attending pathologist whose signature appears on this report has reviewed all diagnostic slides and has edited the gross and/or microscopic portion of the report in rendering the final pathologic diagnosis. [facility] 08/31/2010 11:1 0 AM EDT Brendan Navarro MD PATHOLOGY/CYTOLOGY [facility] * SURGICAL PATHOLOGY REPORT (08/31/2010 11:10 AM EDT) Surgical Pathology Report ? [facility] ? Provider: ?? BRENDAN NAVARRO ? Pt. Name: ?? ANDREA HAGAN ?LEMUEL ? Acc #: ?[id number] ?Pt. ? Col Date: ?? 08/31/2010 ? /Sex: ?2000,(10 years),Female ? Rec Date: ?? 08/31/2010 ? LOC: ?[facility] ? SURGICAL PATHOLOGY ? ---Pathologic Diagnosis--- ? A - Left knee loose bodies: ? Cartilagenous Loose bodies. ? Synovium with detritic synovitis and hemosiderin laden macrophages ? B - Left knee bone: ? Fragments of bone and physeal type cartilage with enchondral ? ossifcation ? CR-0 ? 09/03/10 ? VAM ? 09/03/10 Verified by: ? Sean Aguirre MD ? Pathologist ? (Electronic Signature) ? The attending pathologist whose signature appears on this report has ? reviewed all diagnostic slides and has edited the gross and/or ? microscopic portion of the report in rendering the final pathologic ? diagnosis. ? ---Microscopic Description--- ? Slides reviewed, microscopic description not recorded. ? ---Gross Description--- ? A - Labeled/Fixative: Left knee loose bodies, fresh. ? Qty/Size/Weight: ?Multiple, ranging from 0.3 to 0.6 cm. ? Tissue Description: ?? White and yellow nodular tissues consisting ? of soft tissue and cartilage. ? Sections/Processi ng: ??(T1) ? B - Labeled/Fixative: Left knee bone, fresh. ? Qty/Size/Weight: ?Two, averaging 0.8 x 0.3 cm. ? Tissue Description: ?? [place], cylindrical cores of bone. ? Sections/Processi ng: ??(T1) following decalcification. ?? vms/SNS ? ---Clinical Information--- ? Specimen Submitted: ? A - Left knee loose bodies ? B - Left knee bone ? Clinical History/Diagnosis : ? Left knee affusion [facility] 08/31/2010 11:1 0 AM EDT Brendan Navarro MD PATHOLOGY/CYTOLOGY O RDERABLES Performing Organization Address [facility] Co de Phone Number OSCAR HEREDIA * Cell Count Body Fluid (08/31/2010 10:00 AM EDT) Body Fluid Source Knee, Left C ERNER MILLENNIUM Color, Fld [place] CERNER MILLENNIUM Appearance, Fld Hazy CERN ER MILLENNIUM Nucl Cell BF Ct 373 /mcl CERN ER MILLENNIUM Comment: Counts may be inaccurate due to clumping of cells If Nucleated Cell Count equals zero, No Scan or Differential will be performed. If Nucleated Cell Count equals 1-5, Smear is scanned but no results are reported unless abnormalities are seen. If Nucleated Cell Count equals 6 or greater, Differential will be reported. Neutrophil BF See Note CERNER MILLENNIUM Comment: PRELIMINARY BODY FLUID DIFFERENTIAL Final report to follow. (See [id number] ) Neutrophil%: 5 Lymphocyte%: 51 Macrophage%: 38 Mesothelial%: 6 Eosinophil%: Basophil%: Other Cells%: Total cells counted on cytocentrifuge differential smear: 200 Slide sent to Pathologist for smear review. See Fluid Review Report under Hematology Reports for final interpretation. Body fluid specimen (specimen) 08/31/2010 10:00 AM EDT 08/31/2010 10:03 AM EDT Brendan Navarro MD BODY FLUIDS AND STOO LS ORDERABLES Performing Organization Address [facility] Co de Phone Number OSCAR HEREDIA * REFLEX LAB-ANAEROBIC CULTURE (08/31/2010 9:51 AM EDT) Anaerobic Culture ? Patient Name: ANDREA HAGAN ?? Ordered By: BRENDAN NAVARRO ? MR#: [id number] ?LOC: ??[facility] ? /Sex: ??2000 (10 years), ? Female ? PROCEDURE: Anaerobic Culture ?SOURCE: Knee Fl ? COLLECTED: 08/31/2010 09:51 ? STARTED: 08/31/2010 10:16 ? FINAL REPORT ? Final Report ? Verified:2010 14:22 ? No anaerobic organisms isolated ? PRELIMINARY REPORT ? Preliminary Report ? Verified:2010 11:51 ? No anaerobic organisms isolated to date ? [facility] Knee joint synovial fluid (specimen) 08/31/2010 9:51 AM EDT 08/31/2010 10:16 AM EDT Brendan Navarro MD MICROBIOLOGY - GENER AL ORDERABLES [facility] * BODY FLUID CULTURE (08/31/2010 9:51 AM EDT) Body Fluid Culture ? Patient Name: ANDREA HAGAN ?? Ordered By: BRENDAN NAVARRO ? MR#: [id number] ?LOC: ??[facility] ? /Sex: ??2000 (10 years), ? Female ? PROCEDURE: Body Fluid Culture ?SOURCE: Knee Fl ? COLLECTED: 08/31/2010 09:51 ? STARTED: 08/31/2010 10:16 ? STAINS / PREPARATIONS ? Gram Stain Report ? Verified:09/01/19 11 10:56 ? Cytocentrifuge Gram Stain performed ? White Blood Cells seen ? No microorganisms seen. ? FINAL REPORT ? Final Report ? Verified:09/05/19 11 09:22 ? No growth ? PRELIMINARY REPORT ? Preliminary Report ? Verified:09/02/19 11 07:20 ? No growth to date. ? [facility] Knee joint synovial fluid (specimen) 08/31/2010 9:51 AM EDT 08/31/2010 10:16 AM EDT Brendan Navarro MD MICROBIOLOGY - GENER AL ORDERABLES [facility] documented in this encounter Visit Diagnoses Diagnosis Knee pain Pain in joint, lower leg documented in this encounter Administered Medications Inactive Administered Medications - up to 3 most recent administrations Medication Order MAR Action Action Date Dose Rate Site fentaNYL 50mcg/mL injection 13.5-27 mcg (0.25-0.5 mcg/kg ? 54 kg), Intravenous, EVERY 5 MIN PRN, Starting on Mon08/31/10 at 1135, Until Mon08/31/10 at 1534, Pain, for breakthrough pain, Usual dose range 0.25-0.5 micrograms/kg/dose. Hold for respiratory rate less than 12., PACU Recovery, Routine Given 08/31/2010 12:29 PM EDT 15 mcg Given 08/31/2010 12:10 PM EDT 10 mcg Given 08/31/2010 11:41 AM EDT 20 mcg hydroCODone-acetaminophen (VICODIN) 5-500 mg per tablet 1 tablet 1 tablet (5 mg), Oral, EVERY 6 HOURS PRN, Starting on Mon08/31/10 at 1135, Until Mon08/31/10 at 1534, Pain, Maximum dose of acetaminophen is 4000 mg from all sources in 24 hours., PACU Recovery, Routine Given 08/31/2010 12:32 PM EDT 1 tabl et documented in this encounter Active and Recently Administered Medications Times are shown in EDT. Scheduled Medication Order 08/29/2010 08/30/2010 08/31/2010 ceFAZolin (ANCEF) 1g in dextrose 5% 50mL (COMPLETED) 1,000 mg (18.5 mg/kg/dose = 1 g), Intravenous, ONCE, 1 dose, On Mon08/31/10 at 1015, To be administered upon arrival to the OR within one hour prior to incision., Day of Surgery (Day of Procedure) 0927 (Given - Provid er: Dillon Colindres)1015 (Due) PRN Medication Order 08/29/2010 08/30/2010 08/31/2010 fentaNYL 50mcg/mL injection (CANCELED) 13.5-27 mcg (0.25-0.5 mcg/kg ? 54 kg), Intravenous, EVERY 5 MIN PRN, Starting on Mon08/31/10 at 1135, Until Mon08/31/10 at 1534, Pain, for breakthrough pain, Usual dose range 0.25-0.5 micrograms/kg/dose. Hold for respiratory rate less than 12., PACU Recovery, Routine 1141 (Given - Provid er: Ervin Kaur RN)1210 (Given - Provider: Ervin Kaur RN)1229 (Given - Provider: Ervin Kaur RN) hydroCODone-acetaminophen (VICODIN) 5-500 mg per tablet 1 tablet (CANCELED) 1 tablet (5 mg), Oral, EVERY 6 HOURS PRN, Starting on Mon08/31/10 at 1135, Until Mon08/31/10 at 1534, Pain, Maximum dose of acetaminophen is 4000 mg from all sources in 24 hours., PACU Recovery, Routine 1232 (Given - Provid er: Ervin Kaur RN) methylPREDNISolone acetate (depo-MEDROL) injection (COMPLETED) ONCE PRN, 1 dose, Starting on Mon08/31/10 at 1000, Until Mon08/31/10 at 1000, Intra-Operative (Intra-Procedure), Routine 1000 (Given - Provid er: Cosmo Scott - Comment: left knee) documented in this encounter Care Teams Grounds Crew Supervisor Relationship Specialty Start Date End Date Michelet Cramer MD [address] [place] [address] PCP - General 04/27/10 07/16/15 documented as of this encounter
--- OUTSIDE RECORDS SUMMARY | 2023-12-15 02:25 | XMS_ITS | Encounter Summary ---
Author Organization [facility] Address [facility] [place] [address] Care Team Providers Care Publicity Agent Name Role Phone Michelet Cramer MD Primary Care Provider [phone] Reason for Visit * Reason Comments Follow-up inflammatory arthrit is, ? AIDAN versus hemarthrosis of ? etiology Encounter Details Date Type Department Care Team (Late st Contact Info) Description 08/04/2010 11:00 AM EDT Office Visit [facility]LE[facility] [address] [place] [address] MD [facility] PEDIATRIC [place] [address] Inflammatory arthritis (Primary Dx); Hemarthrosis Discharge Disposition: Home Social History Tobacco [...] Sign Reading Time Taken Comments Blood Pressure 106/66 08/04/2010 11:19 AM EDT Pulse - - Temperature 36.6 ??C (97.9 ??F) 08/04/2010 11:19 AM E DT Respiratory Rate - - Oxygen Saturation - - Inhaled Oxygen Concentration - - Weight 55 kg (121 lb 4.1 oz) 08/04/2010 11:19 AM EDT Height 136.5 cm (4' 5.74) 08/04/2010 11:19 AM E DT Body Mass Index 29.52 08/04/2010 11:19 AM EDT Body Mass Index Percentile 99.22% 08/04/2010 11: 19 AM EDT Growth Chart: CDC (Girls, 2- 20 Years) documented in this encounter Progress Notes * Clare Way MD - 08/04/2010 11:45 AM EDT Subjective: Patient ID: Samreen Martinez is a 10 y.o. female. HPI: Samreen returns for F/U of her inflammatory arthritis, ? AIDAN versus a hemarthrosis of ? etiology. After I saw her in Orthopedics Clinic, an arthrocentesis was done. It was hemorraghic and not felt to be a traumatic tap. She was seen by hematology without any evidence for a coagulation disorder.I understood a repeat tap was going to be done, but it was not. They have not heard anything more from Dr. Brown. I have tired to reach him on several occassions and we will be discussing Samreen tomorrow. They report she is back on her naproxen and that her knee is much better. It is less swollen and much less painful. It was worse as she was off the naproxen. She has had several more episodes of her knee giving way. It is unclear whether this is her patella dislocating or truly her knee giving out. After this happens her knee is more stiff and sore. It occurs when she is playing. She cannotdescribe a particular motion or activity that makes it happen. It does not lock. She has been taking the naproxen regularly without GI upset or other problem. She had her eyes examined without any evidence of uveitis. She is trying to watch what she eats. She reports she has not gained weight sinceher last visit. Review of Systems Constitutional: Negative. HENT: Negative. Eyes: Negative. Respiratory: Negative. Cardiovascular: Negative. Gastrointestinal: Negative. Genitourinary: Negative. Skin: Negative. Neurological: Negative. Hematological: Negative. Psychiatric/Behavioral: Negative. Objective: Physical Exam Constitutional: She appears well-developed and well-nourished. She is active. No distress. HENT: Mouth/Throat: Mucous membranes are moist. Oropharynx is clear. Eyes: Conjunctivae are normal. Neck: FROM without adenopathy, masses or pain at the EOM. There was no thyromegaly. Cardiovascular: Normal rate and regular rhythm. No murmur heard. Pulmonary/Chest: Effort normal and breath sounds normal. No respiratory distress. Abdominal: Soft. She exhibits no mass. There is no hepatosplenomegaly. No tenderness. Musculoskeletal: A detailed joint exam was performed. She had a small effusion in her right knee without pain at theextremes of motion and a moderate effusion in her left knee with mild pain at the extremes of motion. She had FROM in her right knee and mild limitation of full flexion and full extension in her leftknee. All other joints showed FROM without swelling or pain at the EOM. Her leg lengths were equal.Her gait was WNL. Neurological: She is alert. Skin: Skin is warm and dry. No rash noted. Assessment: 1. With both knees involved and a positive BERNY, AIDAN seems likely, but an explanation for the hemarthrosis remains unclear and she continues to have possible mechanical symptoms of giving way. Recommendations: 1. I will review Dr. Brown's plans for Samreen with him tomorrow. I am uncertain whether a repeat arthrocentesis would be sufficient or whether with her abnormal MRI and the hemarthrosis, she needs a repeat MRI or even an arthroscopy. 2. Continue the naproxen for now. It would need to be DC 4-5 days before a repeat arthrocentesis orarthroscopy. 3. Repeat eye eams every 6 months to R/O uveitis. 4. RTC in 1 month or prn problems. No problem-specific visit notes found for this encounter. documented in this encounter Miscellaneous Notes * Miscellaneous - Jose Alejandro, Kelp Or Seagrass Gatherer - 08/31/2010 12:38 PM EDT documented in this encounter Plan of Treatment Not on file documented as of this encounter Visit Diagnoses Diagnosis Inflammatory arthritis- Primary Unspecified inflammatory polyarthropathy Hemarthrosis Hemarthrosis, site unspecified documented in this encounter Care Teams Publicity Agent Relationship Specialty Start Date End Date Michelet Cramer MD [address] [place] [address] PCP - General 04/27/10 07/16/15 documented as of this encounter
--- OUTSIDE RECORDS SUMMARY | 2023-12-15 02:25 | XMS_ITS | Encounter Summary ---
Author Organization [facility] [place] [address] Care Team Providers Care Medical Social Worker Name Role Phone Michelet Cramer MD Primary Care Provider [phone] Reason for Referral * Consultation (Routine) - Closed Specialty Diagnoses / Procedures Referred By Jack sherman Referred To Contact Rheumatology Diagnoses Effusion of knee joint Brendan Brown MD [facility] [place] [address] [facility] [address] [place] [address] Referral ID Status Reason Start Date Expiration Date V isits Requested Visits Authorized [id number] Closed Consult, Test & Treat 07/06/2010 01/02/2011 1 1 Reason for Visit * Reason Comments Left Knee Pain cant bare weight wit hout lots pain Encounter Details Date Type Department Care Team (Late st Contact Info) Description 07/06/2010 10:20 AM EDT Follow-[place] [phone] Brendan Brown MD [facility] [place] [address] Hip pain (Primary Dx); Effusion of knee joint Discharge Disposition: Home Social History [...] - Inhaled Oxygen Concentration - - Weight 52.2 kg (115 lb) 07/06/2010 11:48 AM EDT Height - - Body Mass Index - - documented in this encounter Progress Notes * Brendan Brown MD - 08/16/2010 9:32 PM EDT History of Present Illness: Andrea Hagan is a10 y.o. female who presents to [facility] today for follow-up of her left knee. We have previously seen her for this. We have in the past found minimal effusion clinically with symptoms that were more mechanical than painful. We therefore decided to treat her in a brace to see if this controlled the symptoms. Over the last week or so the knee has swollenmuch more than it had previously. There is no history of trauma, fevers, rash. She has had more pain with this episode than previously and now is having difficulty walking. She has not noticed pain or swelling elsewhere. Physical Examination: This reveals a healthy looking young lady who is afebrile and in no distress.She has is swollen knee today. There is no redness there is no significant warmth and his skin is intact and there is no deformity. It is fairly tense and there is some diffuse tenderness and discomfort with motion but this motion is only painful towards the end of the motion limited essentially by the effusion. It is not the pain expected with a infected knee. She has a painless range of motion of the hip and ankle onthat side and full range of motion of her joints of her leg on the left. She is neurovascularly intact. Assessment and Plan: I think at this time is still does not strength he has a septic knee given the lack of illness and the ability to move the knee without discomfort and the lack of inflammation around it. We have previously suspected an inflammatory problem and I really think that this is potentially the issue that we're dealing with. Given the previously relatively benign blood work This could be a form of a seronegative arthropathy. In any event we are going to get rheumatology involved today and I believe will come down and have a quick work with her. I think also given the size of the effusion that it would be appropriate to aspirate this knee to help with the diagnosis of the issue as well as to relieve some of this young lady's discomfort. We will send these tests off on the fluid and we'll discuss this with them subsequently. I think followup will now depend upon what the diagnosis is and how she responds to anti-inflammatory type treatment. If she continues to have mechanical issuesthen we'll obviously have to look at her orthopaedically again. documented in this encounter Plan of Treatment Scheduled Referrals Name Type Priority Associated Diagnoses Order Schedule REFERRAL TO PEDIATRIC RHEUMATOLOGY Outpatient Referral Routine Effusion of knee joint Ordered: 07/06/2010 documented as of this encounter Procedures Procedure Name Priority Date/Time Associated Diagnosis Comments ANAEROBIC CULTURE Routine 07/06/2010 1:5 6 PM EDT BODY FLUID CULTURE, AEROBIC Routine 07/06/2010 1:56 PM EDT BODY FLUID CULTURE, AEROBIC & ANAEROBIC Routine 07/06/2010 1:42 PM EDT Effusion of knee joint CRYSTAL EXAM BODY FLUID Routine 07/06/2010 12:50 PM EDT Effusion of knee joint CELL COUNT BODY FLUID Routine 07/06/2010 12:50 PM EDT Effusion of knee joint PROTEIN LEVEL BODY FLUID Routine 07/06/2010 12:50 PM EDT Effusion of knee joint GLUCOSE LEVEL BODY FLUID Routine 07/06/2010 12:50 PM EDT Effusion of knee joint documented in this encounter Results * REFLEX LAB-ANAEROBIC CULTURE (07/06/2010 1:56 PM EDT) Anaerobic Culture ? Patient Name: ANDREA HAGAN ?? Ordered By: BRENDAN BROWN ? MR#: [id number] ?LOC: ??3A ? /Sex: ??2000 (10 years), ? Female ? PROCEDURE: Anaerobic Culture ?SOURCE: Knee Fl ? COLLECTED: 07/06/2010 13:56 ? STARTED: 07/06/2010 13:56 ? FINAL REPORT ? Final Report ? Verified:2010 13:51 ? No anaerobic organisms isolated ? PRELIMINARY REPORT ? Preliminary Report ? Verified:2010 15:02 ? No anaerobic organisms isolated to date ? [facility] Knee joint synovial fluid (specimen) 07/06/2010 1:56 PM EDT 07/06/2010 1:56 PM EDT Brendan Brown MD MICROBIOLOGY - GENER AL ORDERABLES [facility] * BODY FLUID CULTURE (07/06/2010 1:56 PM EDT) Body Fluid Culture ? Patient Name: RA DANYAQUEL Miguel Angel ?? Ordered By: BRENDAN BROWN ? MR#: [id number] ?LOC: ??3A ? /Sex: ??2000 (10 years), ? Female ? PROCEDURE: Body Fluid Culture ?SOURCE: Knee Fl ? COLLECTED: 07/06/2010 13:56 ? STARTED: 07/06/2010 13:56 ? STAINS / PREPARATIONS ? Gram Stain Report ? Verified:07/07/19 11 14:43 ? Cytocentrifuge Gram Stain performed ? White Blood Cells seen ? No microorganisms seen. ? FINAL REPORT ? Final Report ? Verified:07/11/19 11 11:52 ? No growth ? PRELIMINARY REPORT ? Preliminary Report ? Verified:07/08/19 11 08:58 ? No growth to date. ? [facility] Knee joint synovial fluid (specimen) 07/06/2010 1:56 PM EDT 07/06/2010 1:56 PM EDT Brendan Brown MD MICROBIOLOGY - GENER AL ORDERABLES Performing Organization Address City/State/[facility] Co de Phone Number [facility] * High Sensitivity CRP (07/06/2010 1:06 PM EDT) C-Reactive Protein High Sensitivity 9.4 mg/L [facility] Comment: Interpretations: 1) For cardiac risk [...] 1:06 PM EDT 07/06/2010 1:12 PM EDT Brendan Brown MD CHEMISTRY ORDERABLES Performing Organization Address [facility] de Phone Number [facility] [employer] * Lyme IgG & IgM Antibody (07/06/2010 1:06 PM EDT) Lyme Antibody Negative Negative CERNER [employer] Blood specimen (specimen) 07/06/2010 1:06 PM EDT 07/07/2010 10:28 AM EDT Brendan Brown MD IMMUNOLOGY ORDERABLE S Performing Organization Address [facility] de Phone Number [facility] * (ABNORMAL) BERNY (07/06/2010 1:06 PM EDT) BERNY Pos Titer TF(A) Neg CERNER [employer] Blood specimen (specimen) 07/06/2010 1:06 PM EDT 07/06/2010 2:30 PM EDT Brendan Brown MD LAB SEND OUT ORDERAB LES Performing Organization Address [facility] de Phone Number CERDOUG HARPERENNIUM * Rheumatoid factor, quant (07/06/2010 1:06 PM EDT) Rheumatoid Factor 10 <=14 IU/mL CERNER MILLENNIUM Blood specimen (specimen) 07/06/2010 1:06 PM EDT 07/06/2010 1:12 PM EDT Brendan Brown MD CHEMISTRY ORDERABLES Performing Organization Address City/[facility] Co de Phone Number OSCAR FREGOSOIUM * (ABNORMAL) Sedimentation rate (07/06/2010 1:06 PM EDT) Sedimentation Rate Automated 23(H) 0 - 10 mm/hr CERNER MILLENNIUM Blood specimen (specimen) 07/06/2010 1:06 PM EDT 07/06/2010 1:12 PM EDT Brendan Brown MD HEMATOLOGY ORDERABLE S Performing Organization Address City/[facility] Co de Phone Number CERDOUG HARPERENNIUM * CBC (with Diff) (07/06/2010 1:06 PM EDT) White Blood Cell 12.0 4.5 - 14.0 x10(3)/mcL CERNER MILLENNIUM Red Blood Cell 4.72 4.00 - 5.20 [...] 1:06 PM EDT 07/06/2010 1:12 PM EDT Brendan Brown MD HEMATOLOGY ORDERABLE S Performing Organization Address [facility] de Phone Number [facility] LEROYENNIUM * Cell Count Body Fluid (07/06/2010 12:50 PM EDT) Body Fluid Source Knee, Left CERNER MILLENNIUM Color, Fld Red CERNER MILLENNIUM Appearance, Fld Cloudy CERN ER MILLENNIUM Nucl Cell BF Ct 10,323 /mcl CERN ER MILLENNIUM Neutrophil BF 95 % CERNER MILLENNIUM Lymphocyte BF 4 % CERNER MILLENNIUM Macrophage BF 1 % CERNER MILLENNIUM Tot Diff Ct BF 200 Cells CERNE R MILLENNIUM Body fluid specimen (specimen) 07/06/2010 12:50 PM EDT 07/06/2010 2:30 PM EDT Brendan Brown MD BODY FLUIDS AND STOO LS ORDERABLES Performing Organization Address [facility] de Phone Number [facility] LEROY[facility] * Glucose Level Body Fluid (07/06/2010 12:50 PM EDT) Glucose, Fluid 94 mg/dL CERNE R MILLENNIUM Comment: No reference range is available for the specimen type submitted. ??The performance of this assay for the submitted type has not been validated and results should be interpreted accordingly and with regard to the patient's clinical status. 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 Body fluid specimen (specimen) 07/06/2010 12:50 PM EDT 07/06/2010 2:30 PM EDT Brendan Brown MD BODY FLUIDS AND STOO LS ORDERABLES Performing Organization Address [facility] de Phone Number OSCAR HEREDIA * Protein Level Body Fluid (07/06/2010 12:50 PM EDT) Protein, Fluid 4.7 gm/dL CERNE R MILLENNIUM Comment: Reference range: ??Transudates ??< 3.0 gm/dL ?Exudates ? > 3.0 gm/dL No reference range is available for the specimen type submitted. ??The performance of this assay for the submitted type has not been validated and results should be interpreted accordingly and with regard to the patient's clinical status. Prot, Fld Type Knee, Left OSCAR HEREDIA Body fluid specimen (specimen) 07/06/2010 12:50 PM EDT 07/06/2010 2:31 PM EDT Brendan Brown MD BODY FLUIDS AND STOO LS ORDERABLES Performing Organization Address [facility] de Phone Number OSCAR HEREDIA documented in this encounter Visit Diagnoses Diagnosis Hip pain- Primary Pain in joint, pelvic region and thigh Effusion of knee joint Effusion of lower leg joint documented in this encounter Care Teams Medical Social Worker Relationship Specialty Start Date End Date Michelet Cramer MD [address] [place] [address] PCP - General 04/27/10 07/16/15 documented as of this encounter
--- OUTSIDE RECORDS SUMMARY | 2023-12-15 02:25 | XMS_ITS | Encounter Summary ---
Author Organization [facility] Address [facility] [place] [address] Care Team Providers Care Owner Operator Name Role Phone Michelet Cramer MD Primary Care Provider [phone] Encounter Details Date Type Department Care Team (Late st Contact Info) Description 07/07/2010 Orders Only [place] [address] Parveen Obrien MD [facility] DR OR[place] [address] Knee effusion, left (Primary Dx) Social History Tobacco Use Types [...] of this encounter Visit Diagnoses Diagnosis Knee effusion, left- Primary Effusion of lower leg joint documented in this encounter Care Teams Owner Operator Relationship Specialty Start Date End Date Michelet Cramer MD [address] [address] PCP - General 04/27/10 07/16/15 documented as of this encounter
--- OUTSIDE RECORDS SUMMARY | 2023-12-15 02:25 | XMS_ITS | Encounter Summary ---
Author Organization [facility] [place] [address] Care Team Providers Care Marine Pipe Welder Name Role Phone Unavailable Primary Care Provider Unavailabl e Encounter Details Date Type Department Care Team (Late st Contact Info) Description 10/25/2008 Ancillary Procedure Radiology Library at [facility] [place] [address] Benito Zhang MD [facility] [place] [address] Social History Tobacco Use Types Packs/Day Years [...] FILM LIBRARY STORAGE ONLY DX KNEE Routine 10/25/2008 12:00 AM EDT documented in this encounter Results * Film Library- Storage Only DX Knee (10/25/2008 12:00 AM EDT) Narrative RAD - 01/21/2019 9:04 PM EST This exam is auto-finalizing. It's purpose is for storage only. Benito Zhang MD IMG FILM LIBRARY ORD ERABLES [place], [place] documented in this encounter Visit Diagnoses Not on filedocumented in this encounter
--- OUTSIDE RECORDS SUMMARY | 2023-12-15 02:25 | XMS_ITS | Encounter Summary ---
Author Organization [facility] [place] [address] Care Team Providers Care Small Equipment Operator Name Role Phone Michelet Cramer MD Primary Care Provider [phone] Reason for Referral * Surgical (Routine) - Complete - Patient Will Schedule External Appt Specialty Diagnoses / Procedures Referred By Jack t Referred To Contact Orthopaedic Surgery Diagnoses Effusion of knee joint Cole Brown MD [facility] [place] [address] Referral ID Status Reason Start Date Expiration Date Visits Requested Visits Authorized [id number] Complete - Patient Will Schedule External Appt Assume Subset of Care 09/13/2010 03/12/2011 1 1 Encounter Details Date Type Department Care Team (Late st Contact Info) Description 09/13/2010 Orders [place] [address] Cole Brown MD [facility] [place] [address] Effusion of knee joint (Primary Dx) Social [...] Priority Associated Diagnoses Order Schedule REFERRAL TO ORTHOPAEDICS Outpatient Referral Routine Effusion of knee joint Ordered: 09/13/2010 documented as of this encounter Visit Diagnoses Diagnosis Effusion of knee joint- Primary Effusion of lower leg joint documented in this encounter Care Teams Small Equipment Operator Relationship Specialty Start Date End Date Michelet Cramer MD [address] [place] [address] PCP - General 04/27/10 07/16/15 documented as of this encounter
--- OUTSIDE RECORDS SUMMARY | 2023-12-15 02:25 | XMS_ITS | Encounter Summary ---
Author Organization [facility] Address [facility] [place] [address] Care Team Providers Care Commercial Hvac Service Technician Name Role Phone Michelet Cramer MD Primary Care Provider [phone] Encounter Details Date Type Department Care Team (Late st Contact Info) Description 11/30/2010 Orders [place] [address] Cole Brown MD [facility] [place] [address] Effusion of knee joint, left (Primary Dx); Effusion of knee joint Social History Tobacco [...] left- Primary Effusion of lower leg joint Effusion of knee joint Effusion of lower leg joint Effusion of knee joint, left Effusion of lower leg joint Effusion of knee joint Effusion of lower leg joint documented in this encounter Care Teams Commercial Hvac Service Technician Relationship Specialty Start Date End Date Michelet Cramer MD [address] [place] [address] PCP - General 04/27/10 07/16/15 documented as of this encounter
--- OUTSIDE RECORDS SUMMARY | 2023-12-15 02:25 | XMS_ITS | Encounter Summary ---
[facility] [place] [address] Care Team Providers Care Tool Design Checker Name Role Phone Michelet Cramer MD Primary Care Provider [phone] Reason for Visit * Reason Comments Left Knee Pain scope-post op Encounter Details Date Type Department Care Team (Late st Contact Info) Description 11/30/2010 10:40 AM EDT [place] [id number] Cole Brown MD [facility] [place] [address] OCD (osteochondritis dissecans) of knee (Primary Dx) Discharge Disposition: Home Social History [...] Sign Reading Time Taken Comments Blood Pressure 100/62 11/30/2010 2:17 PM EDT Pulse - - Temperature - - Respiratory Rate - - Oxygen Saturation - - Inhaled Oxygen Concentration - - Weight - - Height - - Body Mass Index - - documented in this encounter Progress Notes * Cole Brown MD - 11/30/2010 3:07 PM EDT DATE OF VISIT: 11/30/2010 HISTORY OF PRESENT ILLNESS: Samreen is a 10-year-old female who have previously [...] presents here today for evaluation of this. PHYSICAL EXAMINATION: This reveals healthy looking young lady who is in no distress. She does have an antalgic gait to that side. Her left knee is quite swollen. There is ecchymoses on the anterolateral aspect of the left tibia. Her bones look like they have healed nicely. There is no other breakage of the skin. She has a large knee effusion and significant tenderness over the lateral femoral condyle, right where the cartilage was torn previously. She has painless range of motion of the knee. The knee is not hot, does not seem infected. X-RAYS: X-ray showed some irregularity of the femoral condyle, but no acute injury. We did an MRI today because we were concerned about this cartilage. I do not see that the cartilage is completely flipped off again, but it does look like there is another loose body present and the patella looks like it is quite laterally displaced. ASSESSMENT AND PLAN: I think that we are looking at least another arthroscopy and possibly a patellar stabilization procedure, which may be the underlying cause of all his issue. I would like to review this with Dr. Ye and Dr. Zhang and Dr. Lew prior to making final decision about next treatment management. She was given brace crutches and will contact over the next few days after we have some kind of consensus on this issue. documented in this encounter Miscellaneous Notes * Miscellaneous - Jose Alejandro, Supervisor [employer] - 12/21/2010 11:50 AM EDT documented in this encounter Plan of Treatment Not on file documented as of this encounter Visit Diagnoses Diagnosis OCD (osteochondritis dissecans) of knee- Primary Osteochondritis dissecans documented in this encounter Care Teams Tool Design Checker Relationship Specialty Start Date End Date Michelet Cramer MD [address] [place] [address] PCP - General 04/27/10 07/16/15 documented as of this encounter
--- OUTSIDE RECORDS SUMMARY | 2023-12-15 02:25 | XMS_ITS | Encounter Summary ---
[place] [address] Care Team Providers Care Outpatient Physical Therapist Name Role Phone Michelet Cramer MD Primary Care Provider Encounter Details Date Type Department Care Team (Late st Contact Info) Description 08/26/2010 [place] [address] Irish Brandt, RN Social History Tobacco Use Types Packs/Day [...] on filedocumented in this encounter Care Teams Outpatient Physical Therapist Relationship Specialty Start Date End Date Michelet Cramer MD [address] [place] [address] [place] [address] PCP - General 04/27/10 07/16/15 documented as of this encounter
--- OUTSIDE RECORDS SUMMARY | 2023-12-15 02:25 | XMS_ITS | Referral Summary ---
Author Organization [facility] Address [address] [place] [address] Care Team Providers Care Communications Station Manager Name Role Phone Unknown, Provider Primary Care Provider Social History Tobacco Use Types Packs/Day Years Used Date Smoking Tobacco: Never Assessed Interpersonal Safety Answer Date Record ed Physically Hurt Never 10/21/2019 Verbally Threaten Not on file 10/21/2019 Sex and Gender Information Value Date Recorded Sex Assigned at Not on file Gender Identity Not on file Sexual Orientation Not on file Plan of Treatment Not on file Care Teams Communications Station Manager Relationship Specialty Start Date End Date Unknown, Provider, PCP - General 04/28/17
--- OUTSIDE RECORDS SUMMARY | 2023-12-15 02:25 | XMS_ITS | Encounter Summary ---
Author Organization [facility] [place] [address] Care Team Providers Care Store Team Member Name Role Phone Michelet Cramer MD Primary Care Provider [phone] Reason for Visit * Reason Comments Left Knee Pain Encounter Details Date Type Department Care Team (Late st Contact Info) Description 08/26/2010 3:40 PM EDT Follow[place] [address] Cole Brown MD [facility] [place] [address] Knee pain (Primary Dx) Discharge Disposition: Home Social [...] Progress Notes * Cole Brown MD - 08/26/2010 11:55 PM EDT I have seen the patient and reviewed the resident's above history and I agree with the details as written. The assessment and plan were formulated in discussion with me and I agree with them as documented. Cole Brown M.D. Department of Orthopaedics [facility] NPI # [id number] [place] [address] * Parveen Obrien MD - 08/26/2010 6:35 PM EDT CLARIFICATION NEEDED: PLEASE FILL IN THE BLANKS. 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 INTERVAL HISTORY: Samreen is well known to the orthopedic clinic. She is a 10-year-old female who in summary developed approximately two months ago or so some left-sided knee symptoms which proved to be developing after no evidence of trauma. Symptoms were prolonged enough and refractory enough to prompt an aspiration here in clinic six weeks or so ago. Almost luiz-appearing blood was aspirated from the left knee joint. She had been seen subsequently due to the concerns for coagulopathy by the hematology service. There has been no indication of any underlying coagulopathy based on the laboratory values which have been sent. In addition, she was seen by Dr. 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 However, there is still is concern as to the etiology of her underlying hemarthrosis. Over the last few weeks or so, Samreen had a short period of time where her knee was feeling better. Her knee had much less swelling. However, also without *------* any significant trauma, she has had the re-accumulation of significant fluid in her knee and significant effusion. Her knee pain has not been too bad as she has been able to complete all of her activities, although she is on some restrictions at this point. She was most recently seen by Dr. Patterson and plan is to treat her with naproxen in the short term. However, she stopped this naproxen about two weeks or so ago because of some gastrointestinal issues such as dyspepsia secondary to the naproxen. PHYSICAL EXAMINATION: A very pleasant, interactive, and appropriate 10-year-old female in no acute distress. She is accompanied by her mother and her aunt and uncle and their roughly a month old baby. She is able to ambulate with a smooth coordinative reciprocal heel-toe gait. However, she does have prolonged stand stays on the left side which is her more symptomatic side which is somewhat *------*. She has smooth painless range of motion of her right lower extremity at the knee, hip, and ankle. In her left lower extremity which is her symptomatic side, she has smooth painless range of motion at the ankle, subtalar joint, and hip. She does guard a little bit with flexion extension of the left knee. She can flex almost symmetrically compared to the contralateral side. Extension is a little bit more difficult for her as she lacks about roughly 5 degrees of full extension. She has a moderately sized effusion. She has no overlying skin changes over the joint. She is not particularly tender over any particular area of the knee, not along the joint lines both medially and laterally, nor the patella, the tibial tubercle or the patellar tendon. She does not have any significant apprehension when mobilizing the patella. Her knee is stable to varus and valgus stress. It is stable in the sagittal plane to anterior and posterior drawer and Daniel testing. ASSESSMENT: This is a 10-year-old young girl with several months' duration of atraumatic knee pain, an aspirate initially which appeared like luiz blood concerns at this point for juvenile inflammatory arthritis and negative coagulopathy workup who after an MRI really reveals no structural injury to her knee. The etiology of the blood in her knee that was aspirated is still unclear at this point and the fact that she has had these recurrent effusions is also a little bit unclear at this point based on both our evaluation and rheumatology's evaluation. I think at this point, we are kind of in a loss for a diagnosis and proceeding with a diagnostic arthroscopy to evaluate the synovium, the articular surfaces, and the potential for a possible vascular lesion which may be secondarily seeding the joint with blood would be warranted. We have talked to the family extensively this afternoon about the nature of arthroscopy, the duration of the surgery, the logistics around timing of surgery, and what the expected length of the surgery would be. We talked about the fact that it would likely be a day procedure which would not require an inpatient stay. We also talked about the potential for modification and weightbearing pending any sort of pathoanatomic issue that we can discover intraoperatively. The family understood the rational for surgery and understood the risks and benefits of surgery and would elect at this point to proceed. We will plan on getting this booked for the near future and for them contact us when they would like to proceed. documented in this encounter Plan of Treatment Not on file documented as of this encounter Procedures Procedure Name Priority Date/Time Associated Diagnosis Comments ARTHROSCOPY KNEE, DIAGNOSTIC Routine 08/26/2010 5:01 PM EDT Knee pain documented in this encounter Visit Diagnoses Diagnosis Knee pain- Primary Pain in joint, lower leg documented in this encounter Care Teams Store Team Member Relationship Specialty Start Date End Date Michelet Cramer MD [address] [place] [address] PCP - General 04/27/10 07/16/15 documented as of this encounter
--- OUTSIDE RECORDS SUMMARY | 2023-12-15 02:25 | XMS_ITS | Encounter Summary ---
Author Organization [facility] Address [facility] [place] [address] Care Team Providers Care Green Chain Marker Name Role Phone Michelet Cramer MD Primary Care Provider [phone] Reason for Visit * Reason Comments Coagulation Disorder Encounter Details Date Type Department Care Team (Latest Contact Info) Description 07/14/2010 10:13 AM EDT - 07/14/2010 11:59 PM EDT Hospital Encounter Pediatric Oncology at [facility] [place] [address] Ana Fung MD [facility] PEDIATRIC HEMATOLOGY/[place] [address] Joint bleeding (Primary Dx) Discharge Disposition: Home Social History Tobacco Use Types Packs/Day Years Used Date Smoking Tobacco: Never Alcohol Use Standard Drinks/Week Comments No 0 (1 standard drink = 0.6 oz pur e alcohol) Sex and Gender Information Value Date Recorded Sex Assigned at Not on file Gender Identity Not on file Sexual Orientation Not on file documented as of this encounter Last Filed Vital Signs Vital Sign Reading Time Taken Comments Blood Pressure 109/56 07/14/2010 10:25 AM EDT Pulse 80 07/14/2010 10:26 AM EDT Temperature 36.7 ??C (98.1 ??F) 07/14/2010 1 0:25 AM EDT Respiratory Rate 20 07/14/2010 10:2 5 AM EDT Oxygen Saturation - - Inhaled Oxygen Concentration - - Weight 53.8 kg (118 lb 9.7 oz) 07/15/19 11 10:25 AM EDT Height 136.5 cm (4' 5.74) 07/14/2010 1 0:25 AM EDT Body Mass Index 28.87 07/14/2010 10:25 AM EDT Body Mass Index Percentile 99.02% 07/14 10:25 AM EDT Growth Chart: [facility] (Girls, 2- 20 Years) documented in this encounter Medications at Time of Discharge Medication Sig Dispensed Refills Start Date End Date naproxen (NAPROSYN) 375 mg tabletIndications:Effusi on of knee joint Take 1 tablet by mouth 2 times daily (with meals). 60 tablet 3 07/07/2010 09/01/2010 acetaminophen (TYLENOL) 500 mg tablet Take 500 mg by mouth every 6 hours as needed. 08/31/2010 documented as of this encounter Progress Notes * Ana Fung MD - 07/14/2010 1:33 PM EDT Pediatric Coagulation Clinic Note Samreen is a 10 [address] old referred by Dr. Brown for evaluation of bleeding disorder. She is accompanied by her mother and stepfather. Samreen was first seen by Dr. Brown on 04/30/2010 for evaluation of left knee pain and swelling. Priorto that visit she had had a several year history of pain and movement in her knee caps. In 10/2008 she fell and fractured, per Mom, her right lower femur and right upper (?) tibia. She was reportedly in a long leg cast. For a couple of months prior to presentation she had gradually worsening left knee pain with increasing swelling treated variously with limited success with ice, acetaminophen and ibuprofen. Dr. Brown described her as having diffuse swelling around her knee on the left side withminimal pain to palpation. AP and frog leg of pelvis and views of knee were unremarkable. The following labs were obtained: H/H 12.5/35.8 plts 294,000 WBC 9.2 (36.3N/54.8L/6.1M/2.1E) ANC 3330 CRP 0.4 ESR 11 BERNY + 1:80, DNA AB (DS) negative RF < 10. An MRI was done on 05/13/2010 and showed: FINDINGS: A large joint effusion is present. No large filling defects are identified. I do not seeobvious synovial proliferation. While there is a mild degree of pericapsular edema, the surrounding soft tissues are otherwise normal. Bone marrow signal intensity is normal throughout. The cruciate and collateral ligaments are intact. No meniscal tear is identified. I do not see any chondral defects. IMPRESSION: Large joint effusion without internal derangement or fracture. The findings are suggestive of chronic synovial irritation such as could be seen in chronic infection or inflammatory arthritis. 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 Samreen was seen by Dr. Way on 07/06. She was noted to have a large left knee effusion with mildlimitation of motion and some pain. Samreen underwent a joint tap which was remarkable for red, cloudy fluid felt to be consistent with a hemarthrosis. Other labs were as follows: H/H 13.1/36.9 plts 366,000 WBC 12 (45.4P/41.5L/9.9M/2.3E) ANC 5420 ESR 23 CRP 8.4 A repeat MRI on 07/07 showed the following: FINDINGS: There has been interval increase in the amount of the left knee joint effusion. Left knee joint effusion is large. New filling defects are noted, particularly at the posterior recess. On image #19 of series #5, these measure approximately4 mm each. Several other smaller filling defects are noted within the suprapatellar recess. Areas of linear ill-defined filling defect within the suprapatellar recess may represent synovial proliferation. These filling defects may represent osteochondral bodies, although no donor site is identifiedon this examination. The cartilage is intact without focal defect. Alternatively, these may represent debris or products of chronic inflammation. There is thickening of the proximal medial collateral ligament. Mild disruption of the anterior fibers are noted, likely representing partial strain. The lateral collateral ligament is complex, anterior, and posterior cruciate ligaments are intact. The menisci are intact without tear. The extensor mechanism is unremarkable. Bone marrow signal is unremarkable without fracture or contusion. There is no evidence for erosive changes. Soft tissues about the knee are also within normal limits. Relatively, there is a lack of inflammatory change about the knee. There is a small popliteal lymph node measuring approximately 7 mm. IMPRESSION IMPRESSION: 1. Interval increase in the amount of joint effusion, now large. New filling defects may represent chondral bodies or debris/products of chronic inflammation. No donor site is identified for chondral bodies. Consider inflammatory or infectious processes, including lyme disease. No evidence for marginal erosions. 2. Strain of the proximal medial collateral ligament. Dr. Way recommended starting naproxen at 375 mg po bid. Per Mom Samreen only took a couple of doses before it was held. On 07/07/2010 I was called by one of the orthopedic residents to discuss appropriate laboratory evaluation for possible bleeding disorder. The following labs were done: PT 14.9 PTT 34 Fibrinogen 432 Factor 13 125 Factor 9 148 Factor 11 112 Factor 8 187 Von Willebrand factor antigen 176 (Type A, mean 106, range 48-234) Von Willebrand factor activity 176. Dr. Brown called me on 07/09 to discuss his concerns re possible bleeding disorder. Discussed that evaluation done to date did not look at plt function, and discussed that hemarthrosis would be an unusual presentation at any age. I reviewed the above history with Samreen and her family. They report that her knee is not painful or bruised today. Per our instructions she has not taken naproxen since the end of last week. Mom reports that Samreen has not routinely taken any NSAIDs. Samreen had no significant bruising at the time of delivery. She had no bleeding with separation of the cord. She has had no lumps at the sites of immunizations. She had no excessive bleeding with eruption or exfoliation of her teeth. She has had no dental extractions, no surgery, no lacerations requiring stitches. She has had the above mentioned fracture of her leg which was easily casted. She gutierrez s not have nosebleeds. She reportedly bruises easily, with bruises primarily on her legs that are larger than anticipated. She has a few bruises noted on her arms. She does not bleed excessively fromsmall lacerations and scrapes. She does scar some after scrapes. She did not ooze excessively post ear lobe piercing. She is not able to do splits or wrap her legs around her neck. She does have hyperextensible fingers. Samreen has no other significant medical issues. Her review of systems other than noted above is unremarkable. Allergies: NKDA Medications: None at this time PMH: Uncomplicated and delivery. No hospitalizations. No significant medical issues. SH: Lives with her mother, stepfather and multiple half siblings during the school year, and then lives with her father in [place] in the summer. She is currently in the 4th grade. FH: Maternal - Mom - anemic, does not have nose bleeds, has had dental extractions and may have bled longer than usual with one of them but did not require intervention, has had several un-named surgeries and had not had significant bleeding, menses last 5-6 days with 2 days of heavy flow with pad /tampon change every 1-1 1/2 hours. MA - anemic, has heavy menses occurring every 2 weeks and lasting 7-8 days, scoliosis MGM - Also has had heavy menses MU - in the armed forces, reportedly has a plate in his foot Paternal - Mom does not have any detailed knowledge of Dad's bleeding history. PE: Alert, very talkative, interactive, in NAD VS: T 36.7 P 80 Rr 20 BP 109/56 Wt 53.8 kg Ht 136.5 cm HEENT: W/o oral lesions M/S: No significant discoloration of the right knee, able to walk w/o significant limp Skin: No significant bruises on extremities or trunk, small stretched scar on her left leg Impression: 10 year old with the unusual occurrence of a presumed hemarthrosis of her right knee here for evaluation for a possible bleeding disorder. Samreen has had no significant prior bleeding challenges except for the fracture. There is a history of heavy menses on the maternal side which couldbe consistent with a familial minor bleeding disorder. The labs which were done last week suggest that Samreen does not have a significant factor deficiency including Factor 13 deficiency which does not cause abnormalities of the PT and PTT, and does not have von Willebrand Disease. Samreen was not screened for a qualitative platelet defect. Discussed minor bleeding disorders with the family, discussed platelet dysfunction and why naproxenhad to be held. Reviewed the lab tests. Reviewed time course of results. Plan: 1) platelet aggregation studies 2) save plasma Addendum: Results of the platelet aggregation studies are available this afternoon. Aggregation to ADP, arachidonic acid, epinephrine, ristocetin and collagen are normal. I do not think that Samreen has a significant bleeding disorder. In addition to not having von Willebrand Disease or a significant factor deficiency she does not have a qualitative platelet defect. I do not think that her report of hyperextensibility is significant enough to account for a hemarthrosis. I cannot explain her hemarthrosis at this time. If Samreen should have another episode of unusual or excessive bleeding re- evaluation for a bleedingdisorder should be considered. I called Samreen's mother. The phone was answered by an answering machine. I will try another time. documented in this encounter Plan of Treatment Not on file documented as of this encounter Procedures Procedure Name Priority Date/Time Associated Diagnosis Comments SAVE PLASMA FOR FUTURE COAG STUDIES Routine 07/14/2010 11:00 AM EDT Joint bleeding PL[place]LET [place], [place] [place] Routine 07/14/2010 11:00 AM EDT Joint bleeding documented in this encounter Results * Save Plasma for future Coag Studies (07/14/2010 11:00 AM EDT) Save Plasma Sample saved in Lab [facility] Blood specimen (specimen) 07/14/2010 11:00 AM EDT 07/14/2010 11:10 AM EDT Ana Fung MD HEMATOLOGY ORDERABLE S [facility] * Platelet Aggregation, Group (07/14/2010 11:00 AM EDT) ADP Normal [facility] SUDHIR Normal [facility] MILLENNIUM RISTO Normal [facility]ERNER MILLENNIUM EPI Normal [facility] MILLENNIUM ARACH Normal [facility] MILLENNIUM Blood specimen (specimen) 07/14/2010 11:00 AM EDT 07/14/2010 11:10 AM EDT Ana Fung MD HEMATOLOGY ORDERABLE S [facility] documented in this encounter Visit Diagnoses Diagnosis Joint bleeding- Primary Hemarthrosis, site unspecified documented in this encounter Care Teams Green Chain Marker Relationship Specialty Start Date End Date Michelet Cramer MD [address] [place] [address] PCP - General 04/27/10 07/16/15 documented as of this encounter
--- OUTSIDE RECORDS SUMMARY | 2023-12-15 02:25 | XMS_ITS | Encounter Summary ---
Author Organization [facility] Address [address] [place] [address] Care Team Providers Care Woolen Mill Utility Worker Name Role Phone Unknown, Provider Primary Care Provider [phone] Encounter Details Date Type Department Care Team (Late st Contact Info) Description 01/01/2020 Lab Requisition [facility] Pathology & Laboratory Medicine - [address] [address] Outr Resulting Lab, Provider Social History Tobacco Use Types Packs/Day [...] Procedure Name Priority Date/Time Associated Diagnosis Comments CHLAMYDIA/N. GONORRHOEAE AMPLIFIED NUCLEIC ACID Routine 12/31/2019 15:00 EDT documented in this encounter Results * CHLAMYDIA/N. GONORRHOEAE AMPLIFIED RNA (12/31/2019 15:00 EDT) Neisseria gonorrhoeae Result Negative Negative 01/02/2020 15:12 EDT [facility] Chlamydia trachomatis Result Negative Negative 01/02/2020 15:12 EDT [facility] Swab ENTIRE WALL OF CERVIX / Unknown 12/31/2019 15:00 EDT 01/01/2020 20:50 EDT Provider Outr Resulting Lab MICROBIOLOGY - GENERAL ORDERABLES [facility] [address] [place] [address] documented in this encounter Visit Diagnoses Not on filedocumented in this encounter Care Teams [employer] [place] Utility Worker Relationship Specialty Start Date End Date Unknown, Provider, PCP - General 04/28/17 documented as of this encounter
--- OUTSIDE RECORDS SUMMARY | 2023-12-15 02:25 | XMS_ITS | Encounter Summary ---
Author Organization [facility] [place] [address] Care Team Providers Care Miner Assistant Name Role Phone Michelet Cramer MD Primary Care Provider [phone] Encounter Details Date Type Department Care Team (Late st Contact Info) Description 08/31/2010 9:14 AM EDT Anesthesia Event [place] [phone] Dillon Colindres MD [facility] [place] [address] Anesthesia Record Procedure Summary Procedure Name Responsible Anesthesiologist Anesthesia Start Time Anesthesia Stop Time ARTHROSCOPY KNEE, DIAGNOSTIC (WRVU 5.19) (Left: Knee) Dillon Colindres MD 08/31/10 0914 08/31/10 1134 Events Date Time Event Comment 08/31/2010 0914 Start 0915 1134 Stop Meds * Agents No agents on file. * Blood No blood administrations on file. Lines, Drains, and Airways Type Details Placement Removal Incision 08/31/10; knee; 11/15/21 (LDA cleanup utility RA#[id number]); 1715 (LDA cleanup utility RA#[id number]) 08/31/10 0000 by My Trevino RN 11/15/21 1715 by Jenna Anders (RETIRED) Peripheral IV Line - Single Lumen 08/31/10; 0900; 08/31/10; 1257 08/31/10 0900 by Bowen Adame RN 08/31/10 1257 by Ervin Kaur RN documented in this [...] OR Notes * Anesthesia Postprocedure Evaluation - Dillon Colindres - 08/31/2010 4:45 PM EDT Patient: Samreen Martinez Procedure(s) Performed: ARTHROSCOPY KNEE, DIAGNOSTIC - Supine Tourniquet Arthroscopy cart Will take synovial biopsy; CAST APPLICATION, LONG LEG (THIGH TO TOES); ARTHROSCOPY KNEE CHONDROPLASTY; ARTHROSCOPY KNEE, DRILLING & FIXATION OF OCD Patient location: PACU Post-op pain: Adequate analgesia Post-op nausea: no nausea or vomiting Last Vitals: Filed Vitals: 08/31/10 1224 Pulse: 90 Temp: Resp: 20 Post-op cardiovascular and respiratory status: is stable Level of consciousness: awake, alert and oriented Complications: no apparent complications and tolerated the procedure well Fluid Status: normal * Anesthesia Preprocedure Evaluation - Dillon Colindres - 08/31/2010 9:12 AM EDT Anesthesia Evaluation Patient summary reviewed and Nursing notes reviewed No hx of anesthetic complications Airway Mallampati: I TM distance: >3 FB Neck ROM: full Dental - normal exam Pulmonary - negative ROS Cardiovascular - negative ROS Neuro/Psych - negative ROS GI/Hepatic/Renal - negative ROS Endo/Other Comments: ? Form of juvenile arthritis Abdominal Anesthesia Plan ASA 2 General with intravenous induction Anesthetic plan and risks discussed with patient, father and mother. Plan discussed with resident. documented in this encounter Miscellaneous Notes * Addendum Note - Selena Ma - 09/01/2010 11:40 AM EDT Addendum created 09/01/10 1140 by Selena Ma Modules edited:Anesthesia Events, Anesthesia Responsible Staff documented in this encounter Plan of Treatment Not on file documented as of this encounter Visit Diagnoses Not on filedocumented in this encounter Care Teams Miner Assistant Relationship Specialty Start Date End Date Michelet Cramer MD [address] [place] [address] PCP - General 04/27/10 07/16/15 documented as of this encounter
--- OUTSIDE RECORDS SUMMARY | 2023-12-15 02:25 | XMS_ITS | Encounter Summary ---
Author Organization [facility] Address [address] [place] [address] Care Team Providers Care Alternative Education Teacher Name Role Phone Unknown, Provider Primary Care Provider [phone] Encounter Details Date Type Department Care Team (Late st Contact Info) Description 03/28/2019 Lab Requisition [facility] Pathology & Laboratory Medicine - [facility] [address] [place] [address] Khang Lamb MD [address] [place] [address] Encounter for other general examination Social History Tobacco Use Types Packs/Day Years Used Date Smoking Tobacco: Never Assessed Sex and Gender Information Value Date Recorded Sex Assigned at Not on file Gender Identity Not on file Sexual Orientation Not on file documented as of this encounter Plan of Treatment Not on file documented as of this encounter Procedures Procedure Name Priority Date/Time Associated Diagnosis Comments SURGICAL PATHOLOGY Today 03/28/2019 0: 30 EST Encounter for other general examination documented in this encounter Results * SURGICAL PATHOLOGY (03/28/2019 0:30 EST) Final Diagnosis INTRAUTERINE CONTENTS, EVACUATION: - Products of conception: - Non-vascularized chorionic villi - membranes - Gestational-type endometrium 04/04/2019 11:20 EST [facility] at 1120 Clinical History Incomplete spontaneous with excessive hemorrhage. DO NOT DISCARD, store for 2 weeks after report finalization, return to [facility]. 04/04/2019 11:20 EST [facility] Attestation There was significant resident/fellow involvement in the diagnostic evaluation of this case. By the signature below, the attending physician certifies that they have personally conducted a gross and/or microscopic examination of the described specimens and rendered or confirmed the above diagnosis. 04/04/2019 11:20 [facility] at 1120 Gross Description A. Received in formalin labelled with proper patient identification (initials T, R) and products of conception is an aggregate of knowles-brown to black rubbery tissue (8.0 x 6.0 x 2.0 cm). No villous tissue, gestational sac or tissue is identified grossly. Glass Belt Sander sections are submitted in A1-A3. Per requisition: ? DO NOT DISCARD, store for 2 weeks after report finalization, return to [facility] Wei Coles MD 03/29/2019 14:15 04/04/2019 11:20 [facility] Resident/Jorje w: Wei Coles MD 04/04/2019 11:20 [facility] Scanned Images 04/04/2019 11:20 [facility] Tissue PRODUCTS OF CONCEPTION TISSUE SPECIMEN / Unknown 03/28/2019 0:30 EST 03/28/2019 17:31 EST Khang Lamb MD PATHOLOGY ORDERABLES [facility] [address] [place] [address] documented in this encounter Visit Diagnoses Diagnosis Encounter for other general examination documented in this encounter Care Teams Alternative Education Teacher Relationship Specialty Start Date End Date Unknown, Provider, PCP - General 04/28/17 documented as of this encounter
--- OUTSIDE RECORDS SUMMARY | 2023-12-15 02:25 | XMS_ITS | Encounter Summary ---
Author Organization [facility] Address [facility] [place] [address] Care Team Providers Care Qa Architect Name Role Phone Michelet Cramer MD Primary Care Provider [phone] Encounter Details Date Type Department Care Team (Late st Contact Info) Description 08/31/2010 8:38 AM EDT - 08/31/2010 9:51 AM EDT [place] [phone] Brendan Navarro MD [facility] [place] [address] ARTHROSCOPY KNEE, DIAGNOSTIC (WRVU 5.19) Social History Tobacco Use Types Packs/Day Years [...] Comments Blood Pressure - - Pulse 87 08/31/2010 7:21 AM EDT Temperature 36.2 ??C (97.2 ??F) 08/31/2010 7:21 AM ED T Respiratory Rate 20 08/31/2010 7:21 AM EDT Oxygen Saturation 98% 08/31/2010 7:21 AM EDT Inhaled Oxygen Concentration - - [...] soreness, which usually goes away in 12-24hours. [facility] - Information Same Day Surgery * Patient [...] hours. If you have questions please call [phone] documented in this encounter Medications at Time [...] Cosmo Scott - 08/31/2010 12:[address] [facility] Operative Note Patient Name: Andrea Hagan : [id number] MR#: [id number] Case Date: 08/31/2010 Surgeon: Surgeon(s) and Role: [...] We then placed the patient in the [id number]-[id number] position and advanced the scope into the [...] lateral condyle was visible. We used a [place] pick to create bony bleeding underneath the [...] Operative Note Patient Name: Andrea Hagan : [id number] MR#: [id number] Case Date: 08/31/2010 Surgeon: Surgeon(s) and Role: [...] 12:44 PM EDT) Fluid Review Report ? [facility] ? Provider: ?? BRENDAN NAVARRO ? Pt. Name: ?? ANDREA HAGAN ?LEMUEL ? Acc #: ?[id number] ? Pt. ? Col Date: ?? 08/31/2010 [...] 4 PM EDT Brendan Navarro MD PATHOLOGY/CYTOLOGY O RDERAGUNJAN [facility]SC[facility] * Surgical Pathology Report (08/31/2010 11:10 AM EDT) Surgical Pathology Report [id number] ? Location: [facility]; [facility]; The signing pathologist has (i) examined [...] 0.8 x 0.3 cm. Tissue Description: ?? Bourg, cylindrical cores of bone. Sections/Proces sing: ??(T1) [...] report in rendering the final pathologic diagnosis. [facility] 08/31/2010 11:1 0 AM EDT Brendan Navarro MD PATHOLOGY/CYTOLOGY O R[facility]AGUNJAN [facility] * SURGICAL PATHOLOGY REPORT (08/31/2010 11:10 AM EDT) Surgical Pathology Report ? [facility] ? Provider: ?? BRENDAN NAVARRO ? Pt. Name: ?? ANDREA HAGAN ?LEMUEL ? Acc #: ?[id number] ?Pt. ? Col Date: ?? 08/31/2010 ? [...] ? VAM ? 09/03/10 Verified by: ? Timothy ROSE, Sean Granados ? Pathologist ? (Electronic Signature) ? The [...] x 0.3 cm. ? Tissue Description: ?? Bourg, cylindrical cores of bone. ? Sections/Processi ng: ??(T1) following decalcification. ?? vms/SNS ? ---Clinical Information--- ? Specimen Submitted: ? A - Left knee loose bodies ? B - Left knee bone ? Clinical History/Diagnosis : ? Left knee affusion [facility] 08/31/2010 11:1 0 AM EDT Brendan Navarro MD PATHOLOGY/CYTOLOGY O RDERABLES Performing Organization Address [facility] de Phone Number OSCAR HEREDIA * Cell Count Body Fluid (08/31/2010 10:00 AM EDT) Body Fluid Source Knee, Left C ERNER MILLENNIUM Color, Fld [place] CERNER MILLENNIUM Appearance, Fld Hazy CERN ER [...] FLUID DIFFERENTIAL Final report to follow. (See [id number] ) Neutrophil%: 5 Lymphocyte%: 51 Macrophage%: 38 Mesothelial%: 6 Eosinophil%: Basophil%: Other Cells%: Total cells counted on cytocentrifuge differential smear: 200 Slide sent to Pathologist for smear review. See Fluid Review Report under Hematology Reports for final interpretation. Body fluid specimen (specimen) 08/31/2010 10:00 AM EDT 08/31/2010 10:03 AM EDT Brendan Navarro MD BODY FLUIDS AND STOO LS ORDERABLES Performing Organization Address [facility] de Phone Number OSCAR HEREDIA * REFLEX LAB-ANAEROBIC CULTURE (08/31/2010 9:51 AM EDT) Anaerobic Culture ? Patient Name: ANDREA HAGAN ?? Ordered By: BRENDAN NAVARRO ? MR#: [id number] ?LOC: ??[facility] ? /Sex: ??2000 (10 years), ? Female ? PROCEDURE: Anaerobic Culture ?SOURCE: Knee Fl ? COLLECTED: 08/31/2010 09:51 ? STARTED: 08/31/2010 10:16 ? FINAL REPORT ? Final Report ? Verified:2010 14:22 ? No anaerobic organisms isolated ? PRELIMINARY REPORT ? Preliminary Report ? Verified:2010 11:51 ? No anaerobic organisms isolated to date ? [facility] Knee joint synovial fluid (specimen) 08/31/2010 9:51 AM EDT 08/31/2010 10:16 AM EDT Brendan Navarro MD MICROBIOLOGY - GENER AL ORDERABLES [facility] * BODY FLUID CULTURE (08/31/2010 9:51 AM EDT) Body Fluid Culture ? Patient Name: MELCHOR HAGANL Miguel Angel ?? Ordered By: BRENDAN NAVARRO ? MR#: [id number] ?LOC: ??[facility] ? /Sex: ??2000 (10 years), [...] 07:20 ? No growth to date. ? [facility] Knee joint synovial fluid (specimen) 08/31/2010 9:51 AM EDT 08/31/2010 10:16 AM EDT Brendan Navarro MD MICROBIOLOGY - GENER AL ORDERABLES [facility] documented in this encounter Visit Diagnoses Diagnosis Knee pain Pain in joint, lower leg Knee pain Pain in joint, lower leg documented in this encounter Administered Medications Inactive Administered Medications - up to 3 most recent administrations Medication Order MAR Action Action Date Dose Rate Site ceFAZolin (ANCEF) 1g in dextrose 5% 50mL 1,000 mg (18.5 mg/kg/dose = 1 g), Intravenous, ONCE, 1 dose, On Mon08/31/10 at 1015, To be administered upon arrival to the OR within one hour prior to incision., Day of Surgery (Day of Procedure) Given 08/31/2010 9:27 AM EDT 1 g fentaNYL 50mcg/mL injection 13.5-27 mcg (0.25-0.5 mcg/kg [...] Routine Given 08/31/2010 12:32 PM EDT 1 tablet methylPREDNISolone acetate (depo-MEDROL) injection ONCE PRN, 1 dose, Starting on Mon08/31/10 at 1000, Until Mon08/31/10 at 1000, Intra-Operative (Intra-Procedure), Routine Given 08/31/2010 10:00 AM EDT 40 mg 19- Surgical Site documented in this encounter Active and Recently [...] knee) documented in this encounter Care Teams Qa Architect Relationship Specialty Start Date End Date Michelet Cramer MD [address] [place] [address] PCP - General 04/27/10 07/16/15 documented as of this encounter
--- OUTSIDE RECORDS SUMMARY | 2023-12-15 02:25 | XMS_ITS | Encounter Summary ---
[facility] [place] [address] Care Team Providers Care Therapy Assistant Name Role Phone Michelet Cramer MD Primary Care Provider [phone] Encounter Details Date Type Department Care Team (Latest Contact Info) Description 07/07/2010 12:25 PM EDT - 07/07/2010 11:59 PM EDT [place] [phone] CLINIC, [facility] Knee effusion, left Social History Tobacco Use Types Packs/Day [...] needed. 08/31/2010 documented as of this encounter Plan of Treatment Not on file documented as of this encounter Procedures Procedure Name Priority Date/Time Associated Diagnosis Comments MRI KNEE WO CONTRAST Routine 07/07/2010 1:23 PM EDT Effusion of lower leg joint documented in this encounter Results * MRI KNEE WO CONTRAST (07/07/2010 1:23 PM EDT) Anatomical Region Laterality Modality Knee Magnetic Resonan ce 07/07/2010 1:23 PM EDT Impressions 07/07/2010 4:31 PM EDT IMPRESSION: 1. Interval increase in the amount of joint effusion, now large. New filling defects may represent chondral bodies or debris/products of chronic inflammation. No donor site is identified for chondral bodies. Consider inflammatory or infectious processes, including lyme disease. No evidence for marginal erosions. ?? 2. Strain of the proximal medial collateral ligament. Narrative 07/07/2010 4:31 PM EDT MRI OF THE LEFT KNEE WITHOUT CONTRAST, 07/07/10: INDICATION: ??Left knee effusion. COMPARISON: ??MR dated 05/13/10 and 04/30/10. ?? TECHNIQUE: ??Multiplanar MR pulse sequences were utilized to image the left knee without the use of IV contrast. ?? FINDINGS: ??There has been interval increase in the amount of the left knee joint effusion. Left knee joint effusion is large. New filling defects are noted, particularly at the posterior recess. On image #19 of series #5, these measure approximately 4 mm each. Several other smaller filling defects are noted within the suprapatellar recess. Areas of linear ill-defined filling defect within the suprapatellar recess may represent synovial proliferation. ?? These filling defects may represent osteochondral bodies, although no donor site is identified on this examination. The cartilage is intact without focal defect. Alternatively, these may represent debris or products of chronic inflammation. ?? There is thickening of the proximal medial collateral ligament. Mild disruption of the anterior fibers are noted, likely representing partial strain. The lateral collateral ligament is complex, anterior, and posterior cruciate ligaments are intact. ?? The menisci are intact without tear. ?? The extensor mechanism is unremarkable. ?? Bone marrow signal is unremarkable without fracture or contusion. There is no evidence for erosive changes. ?? Soft tissues about the knee are also within normal limits. Relatively, there is a lack of inflammatory change about the knee. There is a small popliteal lymph node measuring approximately 7 mm. ?? Procedure Note Mati Sorenson MD - 07/07/2010 MRI OF THE LEFT KNEE WITHOUT CONTRAST, 07/07/10: INDICATION: Left knee effusion. COMPARISON: MR dated 05/13/10 and 04/30/10. TECHNIQUE: Multiplanar MR pulse sequences were utilized to image the leftknee without the use of IV contrast. FINDINGS: There has been interval increase in the amount of the left knee joint effusion. Left knee joint effusion is large. New filling defects are noted, particularly at the posterior recess. On image #19 of series #5,these measure approximately 4 mm each. Several other smaller filling defects are noted within the suprapatellar recess. Areas of linear ill-defined filling defect within the suprapatellar recess may represent synovialproliferation. These filling defects may represent osteochondral bodies, although nodonor site is identified on this examination. The cartilage is intact withoutfocal defect. Alternatively, these may represent debris or products of chronic inflammation. There is thickening of the proximal medial collateral ligament. Milddisruption of the anterior fibers are noted, likely representing partial strain. The lateral collateral ligament is complex, anterior, and posterior cruciate ligaments are intact. The menisci are intact without tear. The extensor mechanism is unremarkable. Bone marrow signal is unremarkable without fracture or contusion. There isno evidence for erosive changes. Soft tissues about the knee are also within normal limits. Relatively,there is a lack of inflammatory change about the knee. There is a small popliteallymph node measuring approximately 7 mm. IMPRESSION IMPRESSION: 1. Interval increase in the amount of joint effusion, now large. Newfilling defects may represent chondral bodies or debris/products of chronic inflammation. No donor site is identified for chondral bodies. Consider inflammatory or infectious processes, including lyme disease. No evidencefor marginal erosions. 2. Strain of the proximal medial collateral ligament. Mary Ann Call MD G MRI ORDERABLES documented in this encounter Visit Diagnoses Diagnosis Knee effusion, left Effusion of lower leg joint documented in this encounter Care Teams Therapy Assistant Relationship Specialty Start Date End Date Michelet Crmaer MD [address] [place] [address] PCP - General 04/27/10 07/16/15 documented as of this encounter
--- OUTSIDE RECORDS SUMMARY | 2023-12-15 02:25 | XMS_ITS | Encounter Summary ---
Author Organization [facility] [place] [address] Care Team Providers Care Switchboard Inspector Name Role Phone Michelet Cramer MD Primary Care Provider [phone] Reason for Visit * Reason Onset Date Comments Results 07/09/2010 Encounter Details Date Type Department Care Team (Late st Contact Info) Description 07/09/2010 [place] [phone] Elizabeth Hernandez RN Results Social History Tobacco Use Types Packs/Day [...] Telephone Encounter - Elizabeth Hernandez RN - 07/09/2010 5:[address] Brown reviewed Samreen's labs with Dr. Fung in [facility] heme/onc who recommended that patient stopher anti-inflammatories for 4 days and then she would see Samreen in clinic fasting in the morning. Referral done and Mom advised. documented in this encounter Plan of Treatment Not on file documented as of this encounter Visit Diagnoses Not on filedocumented in this encounter Care Teams Switchboard Inspector Relationship Specialty Start Date End Date Michelet Cramer MD [address] [place] [address] [place] [address] PCP - General 04/27/10 07/16/15 documented as of this encounter
--- OUTSIDE RECORDS SUMMARY | 2023-12-15 02:25 | XMS_ITS | Encounter Summary ---
Author Organization [facility] Address [address] [place] [address] Care Team Providers Care Level Vial Inspector Name Role Phone Unknown, Provider Primary Care Provider [phone] Encounter Details Date Type Department Care Team (Late st Contact Info) Description 05/29/2019 Lab Requisition [facility] Pathology & Laboratory Medicine - [facility] [address] [place] [address] Unknown, Provider, Social History Tobacco Use Types Packs/Day Years [...] Comments CHLAMYDIA/N. GONORRHOEAE AMPLIFIED NUCLEIC ACID Routine 05/28/2019 15:30 EDT documented in this encounter Results * CHLAMYDIA/N. GONORRHOEAE AMPLIFIED RNA (05/28/2019 15:30 EDT) Neisseria gonorrhoeae Result Negative Negative 2019 13:29 EDT [facility] Chlamydia trachomatis Result Negative Negative 2019 13:29 EDT [facility] Urine URINE / Unknown 05/28/2019 1 5:30 EDT 05/29/2019 17:11 EDT Narrative [facility] - 2019 13:29 EDT A first catch urine specimen is acceptable for detection of Gonorrhea and Chlamydia, but might detect up to 10% fewer infections when compared with vaginal and endocervical swab samples. Provider Unknown MICROBIOLOGY - MEHRDAD PRESTON ORDERABLES [facility] [address] [place] [address] documented in this encounter Visit Diagnoses Not on filedocumented in this encounter Care Teams Level Vial Inspector Relationship Specialty Start Date End Date Unknown, Provider, PCP - General 04/28/17 documented as of this encounter
--- OUTSIDE RECORDS SUMMARY | 2023-12-15 02:25 | XMS_ITS | Encounter Summary ---
Author Organization [facility] Address [facility] [place] [address] Care Team Providers Care Track Rider Name Role Phone Michelet Cramer MD Primary Care Provider [phone] Reason for Visit * Reason Comments Follow-up Encounter Details Date Type Department Care Team (Late st Contact Info) Description 11/30/2010 2:30 PM EDT Office Visit [facility] [address] [place] [address] MD [facility] [place] [address] Discharge Disposition: Home Social History Tobacco Use [...] Time Taken Comments Blood Pressure 100/62 11/30/2010 3:22 PM EDT Pulse 80 11/30/2010 3:22 PM EDT Temperature 36.7 ??C (98.1 ??F) 11/30/2010 3:22 PM ED T Respiratory Rate 16 11/30/2010 3:22 PM EDT Oxygen Saturation - - Inhaled Oxygen Concentration - - Weight 59.4 kg (131 lb) 11/30/2010 3:22 PM EDT Height 139.8 cm (4' 7.04) 11/30/2010 3:22 PM ED T Body Mass Index 30.4 11/30/2010 3:22 PM EDT Body Mass Index Percentile 99.32% 11/30/2010 3:2 2 PM EDT Growth Chart: [facility] (Girls, 2- 20 Years) documented in this encounter Plan of Treatment Not on file documented as of this encounter Visit Diagnoses Not on filedocumented in this encounter Care Teams Track Rider Relationship Specialty Start Date End Date Michelet Cramer MD [address] [place] [address] PCP - General 04/27/10 07/16/15 documented as of this encounter
--- OUTSIDE RECORDS SUMMARY | 2023-12-15 02:25 | XMS_ITS | Encounter Summary ---
Author Organization [facility] [place] [address] Care Team Providers Care Platform Consultant Name Role Phone Michelet Cramer MD Primary Care Provider [phone] Reason for Visit * Reason Onset Date Comments Other 09/13/2010 Encounter Details Date Type Department Care Team (Late st Contact Info) Description 09/13/2010 [place] [phone] Elizabeth Hernandez RN Other Social History Tobacco [...] Telephone Encounter - Elizabeth Hernandez RN - 09/17/2010 3:08 PM EDT Patient's Dad contacted Pedi Ortho practices in [place] who do not take [place] Medicaid. Advisor To Command In [employer] contacted [place] Medicaid who advised that the practice in [place] would have to enroll in Medicaid. Advisor To Command In [employer] explored the option of having Dad pay up front and then Medicaid reimbursing, Medicaid will not do this. Medicaid's recommendation was to have patient seen in ER in [place]. Mom was going to call area ER to find contact info. After further discussion between Dr. Brown and Dr Zhang the recommendation was to keep patient in her cast if possible and Dr. Brown will see for cast removal when she returns. Mom advised that if cast gets wet, breaks down, is painful, or she develops skin irritation she needs to go to the local [facility]. They should, then place her in a well fitting knee immobilizer to eliminate ability to bend knee. * Telephone Encounter - Elizabeth Hernandez RN - 09/13/2010 3:17 PM EDT Call Documentation Heather Coe Aury 09/09/10 03:31 PM Signed Samreen has a follow up appointment on September 23 for (ARTHROSCOPY KNEE, DIAGNOSTIC CAST APPLICATION, LONG LEG (THIGH TO TOES) ARTHROSCOPY KNEE CHONDROPLASTY) a HCK. Mother states Samreen is in [place] until The end of October and would like for her to see an Orthopaedic Surgeon there(with Father and Step mother, but will need a Letter of what the Doc should be looking for or what he/she should be doing with Samreen. I spoke with Dr Brown and he would like Elizabeth to call mom([phone]/ [phone]) and discuss what should or will happen.Elizabeth to discuss with Dr Brown for the decision of what the plan will be. Gave Mom the phone numbers for a couple of Pediatric Orthopaedic physician's in [facility] [address] fax# . Mom will call quality analyst/technical writer when she needs notes and xrays sent. Re-scheduledfollow up to coincide with Dr. Patterson documented in this encounter Plan of Treatment Not on file documented as of this encounter Visit Diagnoses Not on filedocumented in this encounter Care Teams Platform Consultant Relationship Specialty Start Date End Date Michelet Cramer MD [address] [place] [address] [place] [address] PCP - General 04/27/10 07/16/15 documented as of this encounter
--- OUTSIDE RECORDS SUMMARY | 2023-12-15 02:25 | XMS_ITS | Encounter Summary ---
[place] [address] Care Team Providers Care High Lead Yarder Name Role Phone Michelet Cramer MD Primary Care Provider [phone] Encounter Details Date Type Department Care Team (Late st Contact Info) Description 07/14/2010 10:00 AM EDT Hospital Encounter Hematology [place] [address] Jaja Viera, RN Social History Tobacco Use Types Packs/Day [...] on filedocumented in this encounter Care Teams High Lead Yarder Relationship Specialty Start Date End Date Michelet Cramer MD [address] [place] [address] PCP - General 04/27/10 07/16/15 documented as of this encounter
--- OUTSIDE RECORDS SUMMARY | 2023-12-15 02:25 | XMS_ITS | Encounter Summary ---
Author Organization [facility] Address [facility] [place] [address] Care Team Providers Care Slp Teacher Name Role Phone Michelet Cramer MD Primary Care Provider [phone] Reason for Visit * Reason Onset Date Comments Results 07/06/2010 Encounter Details Date Type Department Care Team (Late st Contact Info) Description 07/06/2010 [place] [phone] Cole Brown MD [facility] DR ORTHOPAEDIC [place] [address] Results Social History Tobacco Use Types Packs/Day Years Used Date Smoking Tobacco: Never Assessed Sex and Gender Information Value Date Recorded Sex Assigned at Not on file Gender Identity Not on file Sexual Orientation Not on file documented as of this encounter Miscellaneous Notes * Telephone Encounter - Parveen Obrien MD - 07/06/2010 5:27 PM EDT Spoke with mom regarding aspiration and laboratory results Picture is alittle unclear at this time given following labs results in the setting of significant swelling, pain, inability to bear weight and no significant history of trauma Office Visit on 07/06/10 (from the past 24 hour(s)) CBC (WITH DIFF) Component Value Range ??? WBC 12.0 4.5 - 14.0 (x10(3)/mcL) ??? RBC 4.72 4.00 - 5.20 (x10(6)/mcL) ??? Hemoglobin 13.1 11.5 - 15.5 (gm/dL) ??? Hematocrit 36.9 35.0 - 45.0 (%) ??? MCV 78.2 75.0 - 93.0 (fL) ??? MCH 27.8 25.0 - 33.0 (pg) ??? MCHC 35.5 32.0 - 36.5 (gm/dL) ??? Platelets 366 145 - 370 (x10(3)/mcL) ??? RDWSD 36.8 35.0 - 46.0 (fL) ??? RDWCV 12.8 10.9 - 14.4 (%) ??? MPV 9.3 9.0 - 12.0 (fL) SEDIMENTATION RATE Component Value Range ??? Sed Rate 23 (*) 0 - 10 (mm/hr) RHEUMATOID FACTOR, QUANT Component Value Range ? ? RF 10 <=14 (IU/mL) HIGH SENSITIVITY CRP Component Value Range ??? CRP High Sens 9.4 (mg/L) REFLEX LAB-A-DIFF Component Value Range ??? Neutrophils % 45.4 33.0 - 73.0 (%) ??? Neutr Abs (ANC) 5.42 1.50 - 8.00 (x10(3)/mcL) ??? Lymphocytes % 41.6 22.0 - 57.0 (%) ??? Lymphocytes Abs 5.0 1.5 - 6.8 (x10(3)/mcL) ??? Monocytes % 9.9 2.0 - 12.0 (%) ??? Monocyte Abs 1.2 (*) 0.2 - 1.0 (x10(3)/mcL) ??? Eosinophils % 2.3 0.0 - 7.0 (%) ??? Eosinophils Abs 0.3 0.0 - 0.5 (x10(3)/mcL) ??? Basophils % 0.4 0.0 - 2.0 (%) ??? Basophils Abs 0.1 0.0 - 0.2 (x10(3)/mcL) ??? Immature Gran % 0.40 0.00 - 0.66 (%) ??? Marlene Gran Abs 0.05 0.00 - 0.05 (x10(3)/mcL) REFLEX LAB-SCAN, PERIPHERAL BLOOD Component Value Range ??? Plat Estimate Normal ??? RBC Morphology Normal Aspiration: WBC 10,300 with 95% PMNs, negative gram stain Fluid was bloody red Discussed these results and the overall plan with mom Plan: See in clinic tomorrow -- will call in AM with appt time Plan for coags to be done (to r/o potential coagulopathy) Plan for MRI with gadolinium of L knee/femur/tibia Told mom to keep patient NPO p MN Also told mom this may require admission documented in this encounter Plan of Treatment Not on file documented as of this encounter Visit Diagnoses Not on filedocumented in this encounter Care Teams Slp Teacher Relationship Specialty Start Date End Date Michelet Cramer MD [address] [place] [address] PCP - General 04/27/10 07/16/15 documented as of this encounter
--- OUTSIDE RECORDS SUMMARY | 2023-12-15 02:25 | XMS_ITS | Encounter Summary ---
Author Organization [facility] Address [facility] [place] [address] Care Team Providers Care Tying In Machine Operator Name Role Phone Michelet Cramer MD Primary Care Provider [phone] Reason for Visit * Reason Comments Left Knee Pain l knee effusion Encounter Details Date Type Department Care Team (Late st Contact Info) Description 07/07/2010 11:00 AM EDT Office Visit [place] [phone] Mary Ann Call MD [facility] [place] [address] Knee effusion, left (Primary Dx) Discharge Disposition: Home Social [...] Notes * Mary Ann Call MD - 07/07/2010 9:03 PM EDT 10 year old with left knee pain and swelling. Was here today for further work up to include blood work and MRI as directed by Dr. Brown. Left knee with 2-3+ effusion. Ecchymotic area where previous aspiration was performed. Allows flexion to 100 degrees. Ambulates with antalgic limp. MRI performed and was reviewed with Dr. Mcallister. No intra-articular derangement noted; ligaments and menisci intact. No bony changes; no cartilages Large but simple appearing effusion, less c/w hemarthrosis. Plan: Labs pending. Will review the results when available and work with Dr. Brown to determine further plan. documented in this encounter Miscellaneous Notes * Miscellaneous - Jose Alejandro, Quality Improvement Manager - 07/15/2010 5:32 AM EDT documented in this encounter Plan of Treatment Not on file documented as of this encounter Procedures Procedure Name Priority Date/Time Associated Diagnosis Comments SAVE PLASMA FOR FUTURE COAG STUDIES Routine 07/07/2010 12:00 PM EDT Knee effusion, left FACTOR 13 ACTIVITY Routine 07/07/2010 12 :00 PM EDT Knee effusion, left VON WILLEBRAND FACTOR ANTIGEN Routine 07/07/2010 12:00 PM EDT Knee effusion, left VON WILLEBRAND FACTOR ACTIVITY Routine 07/07/2010 12:00 PM EDT Knee effusion, left APTT Routine 07/07/2010 12:00 PM EDT Knee effusion, left PROTHROMBIN TIME Routine 07/07/2010 12:0 0 PM EDT Knee effusion, left FIBRINOGEN Routine 07/07/2010 12:00 PM EDT Knee effusion, left FACTOR 11 ASSAY Routine 07/07/2010 12:00 PM EDT Knee effusion, left FACTOR 9 ASSAY Routine 07/07/2010 12:00 PM EDT Knee effusion, left FACTOR 8 ASSAY Routine 07/07/2010 12:00 PM EDT Knee effusion, left documented in this encounter Results * Save Plasma for future Coag Studies (07/07/2010 12:00 PM EDT) Pathologist [facility] Save Plasma Sample saved in Lab CERNER MILLENNIUM Blood specimen (specimen) 07/07/2010 12:00 PM EDT 07/07/2010 12:16 PM EDT Cole Brown MD HEMATOLOGY ORDERABLE S [facility] * Factor 11 assay (07/07/2010 12:00 PM EDT) Factor XI Assay 112 50 - 150 % [facility] Blood specimen (specimen) 07/07/2010 12:00 PM EDT 07/07/2010 12:16 PM EDT Cole Brown MD HEMATOLOGY ORDERABLE S Performing Organization Address [facility] Co de Phone Number [facility] * Factor 9 assay (07/07/2010 12:00 PM EDT) Factor IX Assay 148 50 - 150 % [facility] Blood specimen (specimen) 07/07/2010 12:00 PM EDT 07/07/2010 12:16 PM EDT Cole Brown MD HEMATOLOGY ORDERABLE S Performing Organization Address [facility] Co de Phone Number [facility] * (ABNORMAL) Factor 8 assay (07/07/2010 12:00 PM EDT) Factor VIII Assay 187(H) 50 - 150 % [facility] Blood specimen (specimen) 07/07/2010 12:00 PM EDT 07/07/2010 12:16 PM EDT Cole Brown MD HEMATOLOGY ORDERABLE S Performing Organization Address City/[facility] Co de Phone Number [facility] * Factor 13-Esoterix (07/07/2010 12:00 PM EDT) FACTOR 13 125 60 - 150 % [facility] MILLENNIUM Comment: UNIT: % REFRENCE RANGE: 60-150 Test performed by [employer] [address], ??[place] [address] Blood specimen (specimen) 07/07/2010 12:00 PM EDT 07/07/2010 12:16 PM EDT Cole Brown MD LAB SEND OUT ORDERAB LES Performing Organization Address City/[facility]/ZIP Co de Phone Number OSCAR HEREDIA * Von Willebrand Factor Antigen (07/07/2010 12:00 PM EDT) von Willebrand Factor Antigen 176 % [facility] vWF Anti Interp ABO blood group has a significant influence on vWF:Ag levels in normal individuals*. ??Type A individuals have a mean level of 106% (range: 48-234% 2SD). ??* Marla ALVAREZ, et. al. ??The Effect of ABO Blood Group on the Diagnosis of von Willebrand Disease. ??Blood, 1987; 69(6) : 2461-0315 [facility] Blood specimen (specimen) 07/07/2010 12:00 PM EDT 07/07/2010 12:16 PM EDT Cole Brown MD HEMATOLOGY ORDERABLE S Performing Organization Address [facility] Co de Phone Number OSC[facility] HEREDIA * (ABNORMAL) Von Willebrand Factor Activity (07/07/2010 12:00 PM EDT) Von Willebrand Factor Assay 176(H) 50 - 150 % activity [facility] Blood specimen (specimen) 07/07/2010 12:00 PM EDT 07/07/2010 12:16 PM EDT Cole Brown MD HEMATOLOGY ORDERABLE S Performing Organization Address City/[facility]/ZIP Co de Phone Number [facility] FREGOSOIUM * Fibrinogen (07/07/2010 12:00 PM EDT) Fibrinogen 432 200 - 470 mg/dL [facility] Blood specimen (specimen) 07/07/2010 12:00 PM EDT 07/07/2010 12:16 PM EDT Cole Brown MD HEMATOLOGY ORDERABLE S Performing Organization Address [facility] de Phone Number OSC[facility] HEREDIA * APTT (07/07/2010 12:00 PM EDT) Partial Thromboplastin Time 34 25 - 37 sec [facility] MILLENNIUM Comment: Recommended therapeutic PTT range for full dose unfractionated heparin is 80-114 seconds. Blood specimen (specimen) 07/07/2010 12:00 PM EDT 07/07/2010 12:16 PM EDT Cole Brown MD HEMATOLOGY ORDERABLE S Performing Organization Address [facility] de Phone Number OSCAR HEREDIA * Protime-INR (07/07/2010 12:00 PM EDT) Prothrombin Time 14.9 12.7 - 16.1 sec [facility] [employer] Comment: [facility] Transfusion Committee Guidelines: INR less than 2.0, PTT less than OR equal to 43.5 seconds, or Fibrinogen greater than or equal to 100 mg/dl indicate adequate procoagulant activity for hemostasis in patients without underlying bleeding disorders. International Normalization Ratio 1.1 0.9 - 1.1 [facility] [employer] Blood specimen (specimen) 07/07/2010 12:00 PM EDT 07/07/2010 12:16 PM EDT Cole Brown MD HEMATOLOGY ORDERABLE S Performing Organization Address [facility] de Phone Number [facility] HEREDIA documented in this encounter Visit Diagnoses Diagnosis Knee effusion, left- Primary Effusion of lower leg joint documented in this encounter Care Teams Tying In Machine Operator Relationship Specialty Start Date End Date Michelet Cramer MD [address] [place] [address] PCP - General 04/27/10 07/16/15 documented as of this encounter
--- OUTSIDE RECORDS SUMMARY | 2023-12-15 02:25 | XMS_ITS | Encounter Summary ---
Author Organization [facility] [place] [address] Care Team Providers Care Cane Feeder Name Role Phone Michelet Cramer MD Primary Care Provider [phone] Encounter Details Date Type Department Care Team (Late st Contact Info) Description 05/13/2010 1:20 PM EST [place] [address] Cole Brown MD [facility] DR ORTHOPAEDIC SURGERY [place] [id number] Discharge Disposition: Home Social History Tobacco Use Types Packs/Day Years Used Date Smoking Tobacco: Never Assessed Sex and Gender Information Value Date Recorded Sex Assigned at Not on file Gender Identity Not on file Sexual Orientation Not on file documented as of this encounter Miscellaneous Notes * Miscellaneous - Xiomara Blount - 07/05/2010 3:32 PM EDT documented in this encounter Plan of Treatment Not on file documented as of this encounter Visit Diagnoses Not on filedocumented in this encounter Care Teams Cane Feeder Relationship Specialty Start Date End Date Michelet Cramer MD [address] [place] [address] PCP - General 04/27/10 07/16/15 documented as of this encounter
[2023-12-15 09:06] LABS: HCT 31.3 % (36.0-46.0); HGB 10.1 g/dL (11.2-15.7); MCH 24.8 pg (27.0-33.0); MCHC 32.3 % (32.0-36.0); MCV 77 fL (80-95); MPV 10.8 fL (8.0-11.0); Platelet Count 261 10^3/uL (130-400); RBC 4.07 10^6/uL (3.93-5.22); RDW 16.2 % (11.7-14.6); RDW-SD 45.3 fL; WBC 8.56 10^3/uL (4.4-10.8)
[2023-12-15 09:16] LABS: Glucose,1 Hr (Glucola) 152 mg/dL (80-140)
[2023-12-18 11:22] LABS: Varicella IgG Antibody Positive (See Note)
== END 2023-12-15 02:18 | disposition home or self-care (01) ==
LOC: LBO 02:18
PROVIDERS: Advanced Practice Midwife; Visit Provider Obstetrics & Gynecology
DX: Z34.93 Encounter for supervision of normal pregnancy, unspecified, third trimester (principal); Z3A.24 24 weeks gestation of pregnancy
CPT/HCPCS: 36415; 82950; 85027; 86787

== ENCOUNTER 2023-12-20 08:13 | Emergency (ER) | payer MEDICAID, SELFPAY ==
[2023-12-20 08:17] VITALS: BP 144/89; PULSE 107; RESP 18; TEMP 36.7; O2SAT 99
[2023-12-20 08:22] VITALS: BP 144/89; PULSE 107; RESP 18; TEMP 36.7; O2SAT 99
[2023-12-20] MEDS: Bupivacaine 0.5% Pres-Free 30 ML VIAL (08:50)
--- NOTE | 2023-12-20 08:58 | W.ED.GENAD ---
Discharge Plan Disposition Patient Disposition: Home Condition: Good Discharge Details Clinical Impression: Pain, dental Primary Care Provider: Unknown,Unknown ED Provider: Mauri Friedman Home Meds and New Rx's Prescriptions: New clindamycin HCl 150 mg capsule 450 mg PO TID 7 Days Qty: 63 0RF No Action PNV 119-iron fum-folic acid 29 mg iron- 1 mg tablet PO (DME) blood-glucose meter [Accu-Chek Guide Glucose Meter] Misc See Rx Instructions .Route Qty: 1 0RF Rx Instructions: As directed 4x daily (DME) Blood Glucose Test Strip See Rx Instructions .ROUTE .MEDSUPPLY Qty: 10 0RF Rx Instructions: As directed (DME) pen needle, diabetic [BD Ultra-Fine Orig Pen Needle] 29 gauge x 1/2 needle See Rx Instructions .ROUTE .MEDSUPPLY Qty: 100 0RF Rx Instructions: As directed 4x daily Discharge Instructions Instructions: Dental Pain ED Additional Instructions: The block we administered should help improve your pain. Please take 1000 mg of Tylenol every 6 hours to help with the inflammation and pain. These are the maximum doses. Please take the antibiotic as directed to help with the infection in your tooth. Please use the dental list that we have provided to contact the dentist for prompt follow-up and evaluation for tooth removal. If you notice any worsening of your symptoms, or any new symptoms such as difficulty swallowing, difficulty breathing, vomiting, diarrhea, fever, chills, shortness of breath, chest pain, numbness, weakness, or fainting , please return immediately to the emergency department for reevaluation. Please follow up with your primary care provider as soon as possible for reassessment and reevaluation. As always, it was a pleasure participating in your medical care today. HPI General Date/Time Provider Initiated Documentation: 12/20/23 08:16. HPI Narrative: This is a 23-year-old female who is currently 27 weeks who presents today for right upper dental pain. Patient states the symptoms have been present for the last few days. She is scheduled to see her dentist in 2 weeks. She admits to pain and swelling in that area. She denies any other complaints at this time. No other symptoms. No fever or chills, difficulty swallowing or drinking, or other complaints. She has noticed small amount of drainage coming from the back tooth. As well as a foul taste. Related Data Home Medications ?Medication ?Instructions ?Recorded ?Confirmed vitamins no.119-iron tab PO 12/08/23 12/08/23 fumarate 29 mg-folic acid 1 mg tablet blood sugar diagnostic (Blood #10 ea 12/19/23 Glucose Test strips) blood-glucose meter (Accu-Chek #1 ea 12/19/23 Guide Glucose Meter) pen needle, diabetic 29 gauge x #100 ea 12/19/23 1/2 (BD Ultra-Fine Original Pen Needle) clindamycin HCl 150 mg capsule 450 mg (3 x 150 mg) PO TID 7 days 12/20/23 #63 caps Previous Rx's ?Medication ?Instructions ?Recorded blood sugar diagnostic (Blood #10 ea 12/19/23 Glucose Test strips) blood-glucose meter (Accu-Chek #1 ea 12/19/23 Guide Glucose Meter) pen needle, diabetic 29 gauge x #100 ea 12/19/23 12 (BD Ultra-Fine Original Pen Needle) clindamycin HCl 150 mg capsule 450 mg (3 x 150 mg) PO TID 7 days 12/20/23 #63 caps Allergies Allergy/AdvReac Type Severity Reaction Status Date / Time latex Allergy Intermediate HIVES Verified 12/20/23 08:28 Sulfa (Sulfonamide Allergy Intermediate Hives Verified 12/20/23 08:28 Antibiotics) amoxicillin Allergy Anaphylaxis Unverified 12/20/23 08:28 [email or web address] Allergy Severe Other (See Uncoded 12/20/23 08:28 Comment) almonds Allergy Intermediate lips swell Uncoded 12/20/23 08:28 General Stated Complaint: DentalOral MANI: 4 Review of Systems All systems reviewed & are unremarkable except as noted in HPI and below Exam Narrative Exam Narrative: 1.Const: Well-nourished, Well-developed, appearing stated age 2.Eyes: PERRL, no conjunctival injection, and symmetrical lids. 3.ENT: Atraumatic external nose and ears. Moist MM. Neck: Symmetric, trachea midline, No thyromegaly. Mild dental caries, particularly in the right upper posterior molar around tooth one or tooth 2. No evidence of airway compromise. No evidence of Byron's angina. No other acute abnormalities. 4.CVS: +S1/S2, No murmurs or gallops. Peripheral pulses 2+ and equal in all extremities. Brisk capillary refill in all extremities. 5.RESP: Unlabored respiratory effort. Clear to auscultation bilaterally. No wheezes rales or rhonchi 6.GI: Soft, Nontender/Nondistended, No hepatosplenomegaly. No guarding or rebound. 7.MSK: Normocephalic/Atraumatic, Extremities w/o deformity or ttp No cyanosis or clubbing, Normal movement of all extremities 8.Skin: Warm, Dry. No rashes or lesions. 9.Neuro: foreign language teacher II-XII grossly intact. Sensation grossly intact, no focal neurologic deficits. 10.Psych: (AAO) x3. Appropriate mood and affect Course Vital Signs Vital signs: Vital Signs Temperature 36.7 C 12/20/23 08:17 Pulse 107 H 12/20/23 08:17 Respiratory Rate 18 12/20/23 08:17 Blood Pressure 144/89 H 12/20/23 08:17 Pulse Oximetry 99 12/20/23 08:17 Temperature 36.7 C 12/20/23 08:22 Pulse 107 H 12/20/23 08:22 Respiratory Rate 18 12/20/23 08:22 Respiratory Effort Normal, Non-Labored 12/20/23 08:22 Blood Pressure 144/89 H 12/20/23 08:22 Pulse Oximetry 99 12/20/23 08:22 Pain Level 9 12/20/23 08:22 Procedures Nerve Block Nerve Block 1: Time out performed: Yes Local Anesthetic: Bupivicaine 0.5% Amount of anesthesia used (mL): 7 Side: right Intraoral Nerve Block: superior alveolar Procedure Successful: Yes Patient Tolerated Procedure: well and no complications Complications: none Medical Decision Making This is a 23-year-old female who is currently 27 weeks who presents today for right upper dental pain. Patient states the symptoms have been present for the last few days. She is scheduled to see her dentist in 2 weeks. She admits to pain and swelling in that area. She denies any other complaints at this time. No other symptoms. No fever or chills, difficulty swallowing or drinking, or other complaints. She has noticed small amount of drainage coming from the back tooth. As well as a foul taste. Physical exam demonstrates well-appearing female, dental caries present in the right posterior molar on the top right. No evidence of periapical abscess or Ludewig's angina. No signs of airway compromise. Symptoms appear consistent for mild dental carry and associated potential pulpitis. Patient does need an antibiotic coverage for this. She has a notable amoxicillin and sulfa allergy. Will give clindamycin. Recommend probiotic at home. Dental block was performed, patient tolerated this well. Good resolution in pain. Recommend Tylenol at home for pain control. Recommend close follow-up with PCP. Discussed red flags which to return. I have extensively reviewed the treatment plan and discharge instructions with the patient. I have addressed all patient concerns at this time. The patient was made aware of what symptoms to monitor for that would warrant a return to the emergency department. Discussed the plan with the patient, they demonstrate verbal understanding and agreement with our assessment and plan at this time. The documentation in this chart was dictated using Evalve dictation software. Please excuse any dictation errors. Quality:SDOH Health Related Social Needs: No Data to Display PFSH All Active Problems Pain, dental (Acute) Morbid obesity (Acute) Short interval between pregnancies affecting , antepartum (Acute) 13mo interval after pLTCS for twin gestation. Currently (Acute) JOSELUIS 03/03/25. Anxiety (Chronic 04/20/16) restart SSRI. Depressed mood (Chronic 04/20/16) 04/02/19. 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 Increased symptoms with polyarthralgia spring 2017. Had f/u with rheum at [facility]. ? AIDAN vs RA. Allergy to sulfa drugs Depression Surgical History H/O dilation and curettage Hx of section 12/06/22. pLTCS for twin gestation at 37w. Single layer closure. History of tonsillectomy and adenoidectomy 2018 Arthroscopy L knee - effusion, bloody 08/28, 11/28, & 1 more R knee 2011, Family History Mother Mental disorder depression Asthma Sister Asthma Other Diabetes many materanl relatives Hyperlipidemia maternal cousin Mental disorder maternal relatvies with depresssion Attention deficit hyperactivity disorder maternal uncles Other Diabetes many paternal relatives Mental disorder pat side with depression Grandfather , [place] at age 44. Heart disease Father Essential hypertension Mental disorder DEPRESSION OR ANXIETY Myocardial infarction Social History Smoking/Tobacco Use Status: Current every day Tobacco Type: cigarettes Smoking packs per day: 1 Smoking cigarettes per day: 20.0 Tobacco: How many years used: 9 Quit status: considering quitting Smoking risk assessment performed?: Yes Alcohol Intake: current Alcohol Intake frequency: a few times a week Substance use type: marijuana Housing: apartment Do you feel safe at home: Yes Do you feel safe in your relationship?: Yes Additional Social history: just moved from [place] Female Reproductive History Menstrual control method: none History History 4 Para 3 Hx # Term Pregnancies 1 Multiple births 1 Hx # Pregnancies 1 Ectopic pregnancies AB induced Hx Number of Living Children 3 AB spontaneous 1 Past Pregnancies Del. Date GA/Weeks # Preg Succ Route Wgt Sex Labor Lgth Anesthesia Location [facility] 03/27/19 01/25/22 39 No Yes vaginal 3175.147 g Female [facility] 12/06/22 36 Yes Yes 2494.758 g Male [place], [place] 12/06/22 36 Yes Yes 3061.748 g Female [place], [place] Delivery Date: 03/27/19 Last Updated by: Yari Villalobos LPN incomplete spontaneous AB with hemorrhage Delivery Date: 01/25/22 Last Updated by: YOLY Moser- pt reports hemmorhage Delivery Date: 12/06/22 Last Updated by: Kera Bauer RN José Antonio Delivery Date: 12/06/22 Last Updated by: YOLY Moser
[2023-12-20] MEDS: Clindamycin 150 MG CAP, 12 CAPS/BTL 450 MG PO (09:05)
== END 2023-12-20 09:11 | disposition home or self-care (01) ==
PROVIDERS: Emergency Provider Student in an Organized Health Care Education/Training Program
DX: O26.892 Other specified pregnancy related conditions, second trimester (principal); K08.89 Other specified disorders of teeth and supporting structures; O99.332 Smoking (tobacco) complicating pregnancy, second trimester; F17.210 Nicotine dependence, cigarettes, uncomplicated; Z3A.27 27 weeks gestation of pregnancy
CPT/HCPCS: 64400; 99283; J0665

== ENCOUNTER 2024-01-04 15:34 | Outpatient (REF) | payer MEDICAID, SELFPAY ==
[2024-01-08 12:31] LABS: Chlamydia Result Negative (Negative); GC Result Negative (Negative)
== END 2024-01-04 15:35 | disposition home or self-care (01) ==
LOC: LBN 15:34
PROVIDERS: Visit Provider Advanced Practice Midwife
DX: Z34.93 Encounter for supervision of normal pregnancy, unspecified, third trimester
CPT/HCPCS: 87491; 87591

== ENCOUNTER 2024-02-01 01:57 | Outpatient (CLI) | payer MEDICAID, SELFPAY ==
[2024-02-01 10:40] LABS: HCT 31.6 % (36.0-46.0); HGB 9.8 g/dL (11.2-15.7); MCH 23.7 pg (27.0-33.0); MCV 76 fL (80-95); MPV 9.7 fL (8.0-11.0); Platelet Count 244 10^3/uL (130-400); RBC 4.14 10^6/uL (3.93-5.22); RDW-SD 44.1 fL; WBC 8.48 10^3/uL (4.4-10.8)
== END 2024-02-01 01:58 | disposition home or self-care (01) ==
LOC: LBO 01:57
PROVIDERS: Advanced Practice Midwife; Visit Provider Obstetrics & Gynecology
DX: Z34.93 Encounter for supervision of normal pregnancy, unspecified, third trimester (principal); Z3A.35 35 weeks gestation of pregnancy
CPT/HCPCS: 36415; 85027; 82951

== ENCOUNTER 2024-02-21 13:58 | Outpatient (CLI) | payer MEDICAID, SELFPAY ==
[2024-02-21 14:42] VITALS: BP 109/72; PULSE 98; TEMP 36.6
[2024-02-21 14:59] LABS: HGB 9.3 g/dL (11.2-15.7); MPV 10.3 fL (8.0-11.0); Platelet Count 305 10^3/uL (130-400); RBC 4.05 10^6/uL (3.93-5.22); RDW 16.6 % (11.7-14.6); RDW-SD 43.8 fL; WBC 9.39 10^3/uL (4.4-10.8)
[2024-02-21 15:16] LABS: ALT 18 U/L (14-59); AST 15 U/L (15-37); Alkaline Phosphatase 137 U/L (46-116); Anion Gap 9.2 mmol/L (3-11); BUN 8 mg/dL (7-18); Bilirubin, Total 0.26 mg/dL (0.2-1.0); CO2 23.8 mmol/L (21.0-32.0); CREATININE 0.7 mg/dL (0.55-1.02); Calcium 8.4 mg/dL (8.5-10.1); Chloride 106 mmol/L (98-107); Estimated GFR 124.55 (mL/min/1.73m2); Glucose 88 mg/dL (74-106); Sodium 139 mmol/L (136-145); Total Protein 6.6 g/dL (6.4-8.2)
[2024-02-21 15:19] LABS: MCV 74 fL (80-95)
[2024-02-21 17:32] LABS: COMMENT (LAB VIEW ONLY) 280.66 mg/dL; PROTEIN 59.6 mg/dL; Prot/Crea Ur Ratio 0.21
--- NOTE | 2024-02-22 07:42 | W.OBNST ---
Date of service: 02/21/24 Time of Service: 14:40 NST Evaluation Reason for NST Reasons for Nonstress Test: DECREASED MOVEMENT Gestational Age Gestational Age in Weeks and Days: 38 Weeks and 3Days Test and Monitor Explained Test/Monitor Explained: Test Explained, Monitor Explained and Patient Verbalized Understanding Vital Signs Blood Pressure: 109/72 Pulse: 98 Temperature: 97.9 F Urine Results Urine Protein: Positive Urine Ketones: Negative Urine Glucose: Negative Urine Blood: Positive NST Information Date on Monitor: 02/21/24 Time on Monitor: 14:40 Date off Monitor: 02/21/24 Time off Monitor: 14:48 Total Time on Monitor: 8 NST Interventions: PO Hydration and Notify Provider Contraction Frequency: None NST Evaluation Patient States Movement: Present NST Results: Non-Reactive Note Ultrasound Done: Biophysical Profile Reason for Biophysical Profile: Other (NST due to decreased sensation of movement, then difficulty tracing baby on NST due to maternal size and movement). Provider that performed the study: Winsome Pugh Amniotic Fluid: 2 Largest Vertical Pocket: 7.6 Muscle Tone: 2 Body Movements: 2 Breathing Movements: 0 NST Results: Non-Reactive Total Biophysical Profile Score: 6 Other Pertinent Findings: Heart Rate and Presentation (vtx) Coding for Biophysical Profile w/NST: Completed Exam. NST Note Note: Full 30min BPP to look for breathing movements was not completed due to pt time constraints and the large amount of movement and hiccups making it difficult to be able to see breathing movement and giving reassurance to the patient that the baby is moving a lot but she's just not feeling it. Induction at [facility] [place] on 02/24 NST Reviewed and Verified by: Winsome Pugh
[2024-02-22 07:46] VITALS: BP 109/72; PULSE 98; TEMP 36.6
== END 2024-02-21 15:34 ==
LOC: BCD 14:06 → OBS 14:37
PROVIDERS: Visit Provider Obstetrics & Gynecology
DX: O36.8130 Decreased fetal movements, third trimester, not applicable or unspecified (principal); Z3A.38 38 weeks gestation of pregnancy
CPT/HCPCS: 59025; 76818; 80053; 85027; 86850; 86900; 86901; 82565; 84156

== ENCOUNTER 2024-02-21 14:40 | Outpatient (REF) | payer MEDICAID, SELFPAY | END 2024-02-21 14:41 | disposition home or self-care (01) | LOC: LBN 14:40 | PROVIDERS: Visit Provider Obstetrics & Gynecology | DX: Z34.93 Encounter for supervision of normal pregnancy, unspecified, third trimester (principal) | CPT/HCPCS: 87081 ==

== ENCOUNTER 2024-02-27 06:44 | Emergency (ER) | payer MEDICAID, SELFPAY ==
[2024-02-27] VITALS (25 sets, daily range): BP systolic 91–140; BP diastolic 30–73; PULSE 99–140; RESP 14–39; TEMP 36.8–38.7; O2SAT 95–100
--- NOTE | 2024-02-27 07:06 | W.ED.GENAD ---
Discharge Plan Disposition Patient Disposition: Transfer-Acute Inpatient Care Specific Acute Inpt Facility: [facility] Discharge Details Chief Complaint: Dizzy/Sync Clinical Impression: fever, bleeding Primary Care Provider: Unknown,Unknown ED Provider: Tang Bhardwaj Meds and New Rx's Prescriptions: No Action pantoprazole [Protonix] 40 mg tablet,delayed release (DR/EC) 40 mg PO DAILY Qty: 30 5RF PNV 119-iron fum-folic acid 29 mg iron- 1 mg tablet PO (DME) blood-glucose meter [Blood Glucose Monitoring] Kit See Rx Instructions .ROUTE .MEDSUPPLY Qty: 1 0RF Rx Instructions: As directed (DME) Blood Glucose Test Strip See Rx Instructions .ROUTE .MEDSUPPLY Qty: 50 6RF Rx Instructions: Use 4x daily with glucometer (DME) lancets Misc See Rx Instructions .ROUTE .MEDSUPPLY Qty: 100 0RF Rx Instructions: As directed 4x daily HPI General Date/Time Provider Initiated Documentation: 02/27/24 07:06. HPI Narrative: MDM This is a tachycardic but normotensive 23-year-old female with bleeding and chills concerning for the possibility of hemorrhage and sepsis. Patient will receive labs lactate empiric antibiotics and IV oxytocin. No pain out of proportion to suggest necrotizing soft tissue infection. Will treat for endometritis. Patient has anaphylaxis to amoxicillin treat with gentamicin and clindamycin follow-up blood cultures and lactate. Uterus feels firm no indication for manual pressure. Patient does not have excessive bleeding to suggest benefit from Cheng balloon. Endometritis certainly a possibility however will defer pelvic exam as OB is unwrapped. I spoke with Dr. Alcaraz who is signing out to Dr. Munroe. Will also swab for flu influenza and RSV. Will send preeclampsia labs. Given soft abdomen with minimal tenderness will defer CT abdomen pelvis at this point. Will order troponins given chest pain. 7:56 AM CBC shows marked leukocytosis. Mild microcytic anemia with a hemoglobin of 10.0. No thrombocytopenia. No indication for blood transfusion at this point in time. 10 AM CBC repeat pending. COVID influenza RSV negative. I spoke with Dr. Munroe and ordered a CT scan given concern for endometritis. Dr. Munroe had the patient transferred [place] [facility] [place]. I treated her with hydromorphone prior to transfer. I sent her with a BLS crew discontinuing her maintenance fluids to facilitate an expedited transport. Chronic conditions affecting the care of the patient: Elevated BMI History obtained from an outside historian: Patient's and OB External record review: [facility] Diagnostic interpretations performed by me: Per my independent interpretation chest x-ray shows: Per my independent interpretation EKG shows: Narrow complex sinus tachycardia at a rate of 117. Normal axis. Intervals within normal limits. No ST segment abnormalities. No T wave inversions beyond lead III. No acute injury pattern. ]Medications: Oxytocin antibiotics Social determinants of health affecting disposition: N/A Management discussed with: OB Treatment/interventions considered: N/A Response to therapies provided: Improved symptoms in the ED HPI This is a 23-year-old female 2 days status post arriving to emergency department in the setting of vaginal bleeding chest pain headache and dizziness. Patient reportedly had a hemoglobin when she was discharged from [facility] of 9.3 for which she received IV iron. She woke up this morning and felt dizzy. She was changing 2 pads per hour. She endorses a generalized headache chest pain dizziness. She has not had syncope. She does endorse a cough. She has had some dry heaves. She is having some mild abdominal pain. She endorses chills fevers but has not taken her temperature. Exam General: Well-appearing in no acute distress speaking in complete sentences. Tremulous Head: Normocephalic, atraumatic. Eye: Extraocular eye movements intact. No conjunctival injection. No scleral icterus. Ear, nose, mouth, throat: Grossly normal inspection. Normal voice, handling secretions normally. Neck: Trachea midline. Cardiovascular: Well-perfused distal extremities. Rapid regular rate Respiratory: Nonlabored respiration. Clear lungs Gastrointestinal: Nondistended abdomen. Soft abdomen firm uterus. : Pelvic exam deferred. Patient was changed with nurse at bedside and had a clot on her pad but no excess bleeding. Musculoskeletal: No significant lower extremity pitting edema. Moving all 4 extremities spontaneously. Skin: Normal for age and race, grossly normal temperature and turgor. No acute rash. Neurologic: Alert and appropriate, no apparent acute deficits. GCS 15. Psychiatric: Mood and manner are appropriate. Grooming and personal hygiene are appropriate. Related Data Home Medications ?Medication ?Instructions ?Recorded ?Confirmed vitamins no.119-iron tab PO 12/08/23 02/21/24 fumarate 29 mg-folic acid 1 mg tablet pantoprazole 40 mg tablet,delayed 40 mg PO DAILY #30 tabs 01/04/24 02/21/24 release (Protonix) blood sugar diagnostic (Blood #50 ea 02/05/24 02/21/24 Glucose Test strips) blood-glucose meter (Blood Glucose #1 ea 02/05/24 02/21/24 Monitoring kit) lancets #100 ea 02/05/24 02/21/24 Previous Rx's ?Medication ?Instructions ?Recorded pantoprazole 40 mg tablet,delayed 40 mg PO DAILY #30 tabs 01/04/24 release (Protonix) blood sugar diagnostic (Blood #50 ea 02/05/24 Glucose Test strips) blood-glucose meter (Blood Glucose #1 ea 02/05/24 Monitoring kit) lancets #100 ea 02/05/24 Allergies Allergy/AdvReac Type Severity Reaction Status Date / Time latex Allergy Intermediate HIVES Verified 02/21/24 13:32 Sulfa (Sulfonamide Allergy Intermediate Hives Verified 02/21/24 13:32 Antibiotics) amoxicillin Allergy Anaphylaxis Verified 02/21/24 13:32 [email or web address] Allergy Severe Other (See Uncoded 02/21/24 13:32 Comment) almonds Allergy Intermediate lips swell Uncoded 02/21/24 13:32 General Stated Complaint: Dizzy/Sync MANI: 2 Course Vital Signs Vital signs: Vital Signs Pulse 138 H 02/27/24 06:50 Respiratory Rate 18 02/27/24 06:50 Blood Pressure 116/51 L 02/27/24 06:50 Pulse Oximetry 97 02/27/24 06:50 Pulse 138 H 02/27/24 06:50 Respiratory Rate 18 02/27/24 06:50 Blood Pressure 116/51 L 02/27/24 06:50 Pulse Oximetry 97 02/27/24 06:50 Medical Decision Making Quality:SDOH Health Related Social Needs: No Data to Display Critical Care Time Critical Care Time Critical Care Time: Yes Total Critical Care Time: 45 Attestation: Bedside assessment of acute blood loss anemia consultation with consultants [facility] All Active Problems (Updated 02/27/24 @ 13:31 by Tang Bhardwaj MD) bleeding (Acute) fever (Acute) Tachycardia (Acute) Fever (Acute) Vaginal after section (Acute) Patient had a vaginal after section at [facility] [place]. Discharged home day #1 stable. Discharge hemoglobin 9.3. Anemia affecting (Acute) Morbid obesity (Acute) Short interval between pregnancies affecting , antepartum (Acute) 13mo interval after pLTCS for twin gestation. Anxiety (Chronic 04/20/16) restart SSRI. Depressed mood (Chronic 04/20/16) 04/02/19. 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 Increased symptoms with polyarthralgia spring 2017. Had f/u with [place]um [place] [facility] AIDAN vs RA. Allergy to sulfa drugs Depression Surgical History H/O dilation and curettage Hx of section 12/06/22. pLTCS for twin gestation at 37w. Single layer closure. History of tonsillectomy and adenoidectomy 2018 Arthroscopy L knee - effusion, bloody 08/28, 11/28, & 1 more R knee 2011, Family History Mother Mental disorder depression Asthma Sister Asthma Other Diabetes many materanl relatives Hyperlipidemia maternal cousin Mental disorder maternal relatvies with depresssion Attention deficit hyperactivity disorder maternal uncles Other Diabetes many paternal relatives Mental disorder pat side with depression Grandfather , [place] at age 44. Heart disease Father Essential hypertension Mental disorder DEPRESSION OR ANXIETY Myocardial infarction Social History Smoking/Tobacco Use Status: Current every day Tobacco Type: cigarettes Smoking packs per day: 1 Smoking cigarettes per day: 20.0 Tobacco: How many years used: 9 Quit status: considering quitting Smoking risk assessment performed?: Yes Alcohol Intake: current Alcohol Intake frequency: a few times a week Substance use type: marijuana Housing: apartment Do you feel safe at home: Yes Do you feel safe in your relationship?: Yes Additional Social history: just moved from [place] Female Reproductive History Menstrual control method: none History History 4 Para 3 Hx # Term Pregnancies 1 Multiple births 1 Hx # Pregnancies 1 Ectopic pregnancies AB induced Hx Number of Living Children 3 AB spontaneous 1 Past Pregnancies Del. Date GA/Weeks # Preg Succ Route Wgt Sex Labor Lgth Anesthesia Location Prov Compl 03/27/19 01/25/22 39 No Yes vaginal 3175.147 g Female [facility] 12/06/22 36 Yes Yes 2494.758 g Male [place], [place] 12/06/22 36 Yes Yes 3061.748 g Female [place], [place] Delivery Date: 03/27/19 Last Updated by: Yari Villalobos LPN incomplete spontaneous AB with hemorrhage Delivery Date: 01/25/22 Last Updated by: YOLY Moser- pt reports hemmorhage Delivery Date: 12/06/22 Last Updated by: YOLY Moser Delivery Date: 12/06/22 Last Updated by: YOLY Moser
[2024-02-27] MEDS: Oxytocin/Normal Saline 30 UNITS/500 ML BAG 167 UNITS IV (07:25)
--- NOTE | 2024-02-27 07:30 | RT.EKG_ITS ---
APPROVED REPORT Exam: Resting ECG Reason for Exam: Chest pain Patient Location: E HR:117 bpm ECG Measurements Heart Rate [address] 150 P 34 QRSd 79 QRS 28 QT 304 T 13 QTc 425 Conclusion Sinus tachycardia...rate> 99 Narrow complex sinus tachycardia at a rate of 117. Normal axis. Intervals within normal limits. No ST segment abnormalities. No T wave inversions beyond lead III. No acute injury pattern.
[2024-02-27 07:31] LABS: Abs Immature Grans 0.73 10^3/uL (0.0-0.06); HCT 32.6 % (36.0-46.0); MCH 22.9 pg (27.0-33.0); MCHC 30.7 % (32.0-36.0); MCV 75 fL (80-95); MPV 10.1 fL (8.0-11.0); Nucleated RBC 0.1 % (0.0-0.3); Platelet Count 283 10^3/uL (130-400); RBC 4.36 10^6/uL (3.93-5.22); RDW 16.8 % (11.7-14.6); RDW-SD 44.7 fL
[2024-02-27 07:37] LABS: Lactate 1.7 mmol/L (0.6-1.4)
[2024-02-27 07:40] LABS: PTT Activated 30.3 sec (23.6-32.8); Prothrombin Time 9.8 sec (9.1-11.1)
--- NOTE | 2024-02-27 07:45 | HPE_ITS ---
Date of service: 02/27/24 Time of Service: 07:46 Assessment and Plan Assessment and plan (1) Vaginal after section: Status: Acute Assessment and plan: Patient is day #2 status post vaginal after delivery. Her labor was induced at [facility] with Sierra balloon, Pitocin, artificial rupture of membranes. She delivered spontaneously and was discharged to home in stable condition day #1. She presents today with increased vaginal bleeding which appears moderate at best and shaking chills. She is noted to be febrile and tachycardic on presentation. She will have a Fluvid swab, and be covered empirically for sepsis with a suspected possible endomyometritis versus viral etiology. Will await her swabs, baseline laboratory studies and disposition her to the appropriate location which very well may be as an inpatient for antibiotics and monitoring. All questions answered. (2) Fever: Status: Acute (3) Tachycardia: Status: Acute (4) Morbid obesity: Status: Acute History of Present Illness History of Present Illness Chief Complaint: Shaking chills, increased bleeding Consults Consult date: 02/27/24 Requesting physician: Tang Funez arrative: Patient is a 23-year-old who is day #2 status post vaginal after section. She delivered at [facility]. There she underwent a labor induction with Sierra balloon, Pitocin, artificial rupture of membranes and had an uncomplicated vaginal with a qualitative blood loss of 135. She was discharged home day #1 ambulating, tolerating a regular diet and oral pain medication with stable vital signs. During the course of her labor, she did have some moderately elevated blood pressures and was scheduled for a 3-day post blood [facility] check at [facility]. Her family member called the hospital today as she was feeling poorly with increasing bleeding and shaking chills. She was directed to the emergency department. Upon my evaluation, patient looks unwell, though not an extremis. She has shaking chills and an elevated temperature to 101.6. Other than her vaginal , she has no significant risk factors for endomyometritis, however this is high on the differential. She also has sick contacts for influenza at home. She reported that when she stood up early this morning, she passed a clot, and had a soaked mk-pad. On initial examination, her uterus is firm though tender, though Pitocin is also running which could attribute to some of her tenderness. She had a small clot and her biggest concern currently is of an enlarged hemorrhoid and fear of having bowel movements. Review of Systems Narrative: As per HPI PFSH All Active Problems (Updated 02/27/24 @ 07:53 by Haily Alcaraz DO) Tachycardia (Acute) Fever (Acute) Vaginal after section (Acute) Patient had a vaginal after section at [facility] 02/25/2024. Discharged home day #1 stable. Discharge hemoglobin 9.3. Anemia affecting (Acute) Morbid obesity (Acute) Short interval between pregnancies affecting , antepartum (Acute) 13mo interval after pLTCS for twin gestation. Anxiety (Chronic 04/20/16) restart SSRI. Depressed mood (Chronic 04/20/16) 04/02/19. 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 Increased symptoms with polyarthralgia spring 2017. Had f/u with rheum at [facility]. ? AIDAN vs RA. Allergy to sulfa drugs Depression Surgical History H/O dilation and curettage Hx of section 12/06/22. pLTCS for twin gestation at 37w. Single layer closure. History of tonsillectomy and adenoidectomy 2018 Arthroscopy L knee - effusion, bloody 08/28, 11/28, & 1 more R knee 2011, Family History Mother Mental disorder depression Asthma Sister Asthma Other Diabetes many materanl relatives Hyperlipidemia maternal cousin Mental disorder maternal relatvies with depresssion Attention deficit hyperactivity disorder maternal uncles Other Diabetes many paternal relatives Mental disorder pat side with depression Grandfather , [place] at age 44. Heart disease Father Essential hypertension Mental disorder DEPRESSION OR ANXIETY Myocardial infarction Social History Smoking/Tobacco Use Status: Current every day Tobacco Type: cigarettes Smoking packs per day: 1 Smoking cigarettes per day: 20.0 Tobacco: How many years used: 9 Quit status: considering quitting Smoking risk assessment performed?: Yes Alcohol Intake: current Alcohol Intake frequency: a few times a week Substance use type: marijuana Housing: apartment Do you feel safe at home: Yes Do you feel safe in your relationship?: Yes Additional Social history: just moved from [place] Female Reproductive History Menstrual control method: none History History 2 4 Para 3 Hx # Term Pregnancies 1 Multiple births 1 Hx # Pregnancies 1 Ectopic pregnancies AB induced Hx Number of Living Children 3 AB spontaneous 1 Past Pregnancies Del. Date GA/Weeks # Preg Succ Route Wgt Sex Labor Lgth Anesth esia Location Prov Compl 03/27/19 01/25/22 39 No Yes vaginal 7 lb Female [facility] 12/06/22 36 Yes Yes 5 lb 8 oz Male [facility] [place], [place] 12/06/22 36 Yes Yes 6 lb 12 oz Female [place], [place] Delivery Date: 03/27/19 Last Updated by: Yari Villalobos LPN incomplete spontaneous AB with hemorrhage Delivery Date: 01/25/22 Last Updated by: YOLY Moser- pt reports hemmorhage Delivery Date: 12/06/22 Last Updated by: YOLY Moser Delivery Date: 12/06/22 Last Updated by: Kera Bauer RN [facility] Med[facility] Allergies and Home Medications Allergies Allergy/AdvReac Type Severity Reaction Status Date / Time latex Allergy Intermediate HIVES Verified 02/21/24 13:32 Sulfa (Sulfonamide Allergy Intermediate Hives Verified 02/21/24 13:32 Antibiotics) amoxicillin Allergy Anaphylaxis Verified 02/21/24 13:32 [email or web address] Allergy Severe Other (See Uncoded 02/21/24 13:32 Comment) almonds Allergy Intermediate lips swell Uncoded 02/21/24 13:32 Home Medications ?Medication ?Instructions ?Recorded ?Confirmed ?Type vitamins no.119-iron tab PO 12/08/23 02/21/24 History fumarate 29 mg-folic acid 1 mg tablet pantoprazole 40 mg tablet,delayed 40 mg PO DAILY #30 tabs 01/04/24 02/21/24 Rx release (Protonix) blood sugar diagnostic (Blood #50 ea 02/05/24 02/21/24 Rx Glucose Test strips) blood-glucose meter (Blood Glucose #1 ea 02/05/24 02/21/24 Rx Monitoring kit) lancets #100 ea 02/05/24 02/21/24 Rx Exam Narrative Exam Narrative: Appears sick though not an extremis. Const General: cooperative, anxious and ill appearing Nutritional Appearance: obese Orientation: alert, awake and oriented x3 HENMT Head: normal to inspection Eyes General: appearance normal, both eyes and all related structures Neck Neck: normal visual inspection Resp Effort & Inspection: normal respiratory effort Cardio Rate: tachycardic Rhythm: regular rhythm GI Inspection: normal to inspection, large pannus and obesity Palpation: soft, not firm and no guarding Other: Uterus well below the umbilicus. Slightly tender with deep palpation. Minimal active bleeding. 3 cm external hemorrhoid noted Neuro General: patient alert, patient awake and patient oriented x3 Cognition: normal cognition Speech: speech normal Extrem General: normal to inspection, no calf tenderness and edema (1+ bilateral) Results Labs 02/27/24 07:00 02/27/24 07:00 Labs: Laboratory Results - last 24 hr 02/27/24 02/27/24 07:00 07:33 PT 9.8 INR 1.0 APTT 30.3 VBG Lactate 1.7 H Last Vital Signs Temp 101.6 F H 02/27/24 07:41 Pulse 138 H 02/27/24 06:50 Resp 18 02/27/24 06:50 BP 116/51 L 02/27/24 06:50 Pulse Ox 97 02/27/24 06:50 Time Spent Time spent with Patient: 40-54 minutes Time was spent: preparing to see the patient(eg.review tests), obtaining and/or reviewing separately otained hiistory, ordering medications,tests, procedures and referring, communicating with other health director of medicare
[2024-02-27] MEDS: ACETAMINOPHEN 1,000 MG/100 ML BAG 400 MG IVPB (07:46)
[2024-02-27 07:49] LABS: Absolute Monocyte Count 1.25 10^3/uL (0.1-0.8); Absolute Neutrophil Count 22.29 10^3/uL (1.2-6.7); Bands % 13 %; Diff Comment Manual Differential; Microcytosis 1+
[2024-02-27 07:50] LABS: Polychromasia Present
[2024-02-27 07:51] LABS: WBC 25.04 10^3/uL (4.4-10.8)
[2024-02-27] MEDS: CLINDAMYCIN 900 MG/50 ML BAG 50 MG IVPB (07:51)
[2024-02-27 07:55] LABS: ALT 23 U/L (14-59); AST 30 U/L (15-37); Albumin 2.1 g/dL (3.4-5.0); Alkaline Phosphatase 114 U/L (46-116); Anion Gap 10.6 mmol/L (3-11); BUN 6 mg/dL (7-18); Bilirubin, Total 0.22 mg/dL (0.2-1.0); CO2 23.4 mmol/L (21.0-32.0); CREATININE 0.8 mg/dL (0.55-1.02); Calcium 8.5 mg/dL (8.5-10.1); Chloride 105 mmol/L (98-107); Estimated GFR 106.11 (mL/min/1.73m2); Glucose 103 mg/dL (74-106); Potassium 3.4 mmol/L (3.5-5.1); Sodium 139 mmol/L (136-145); Total Protein 6.8 g/dL (6.4-8.2)
[2024-02-27 08:01] LABS: Troponin I 9 ng/L (<or=51)
[2024-02-27 08:43] LABS: COVID-19 PCR Negative (Negative); Influenza A PCR Negative (Negative); Influenza B PCR Negative (Negative); RSV PCR Negative (Negative)
[2024-02-27 08:44] LABS: Source Nasopharynx
[2024-02-27] MEDS: Ibuprofen 600 MG TAB PO (08:46)
[2024-02-27] MEDS: Ondansetron 4 MG/2 ML VIAL IVP (08:46)
--- NOTE | 2024-02-27 09:00 | DI.CT_ITS ---
Exam(s) CT ABDOMEN PELVIS W EXAM: CT ABDOMEN PELVIS W CLINICAL HISTORY: abd pain. TECHNIQUE: Imaging Protocol: Axial computed tomography images with coronal and sagittal reformatted images were created and reviewed CONTRAST MATERIAL: Intravenous: Omnipaque-350 100cc Oral: None COMPARISON: CT CT CHEST/ABD/PEL W from 11/22/2019 FINDINGS: VISUALIZED LUNG BASES: No nodules nor pleural effusions evident. ABDOMEN: There is no ascites. LIVER: No focal hepatic lesions. No dilated intrahepatic ducts. GALLBLADDER/BILIARY: No obvious gallbladder pathology. CBD is not dilated. PANCREAS: No evidence of pancreatic mass nor dilatation of the pancreatic duct. SPLEEN: Spleen is not enlarged. No obvious intrasplenic lesions. Splenic and portal veins are paten t. ADRENALS: There are no significant adrenal masses. KIDNEYS:No cysts evident. No solid renal masses. No calculi nor hydronephrosis.. ABDOMINAL AORTA: Abdominal aorta is not enlarged. LYMPH NODES:There is no retroperitoneal nor paraaortic adenopathy. ABDOMINAL WALL: No evidence of significant anterior abdominal wall nor inguinal hernia. GI: There is no evidence of bowel obstruction, free air, nor abscess. PELVIS: GI: No evidence of appendicitis.No evidence of sigmoid diverticulitis. LYMPH NODES: There is no intrapelvic nor inguinal adenopathy. REPRODUCTIVE: There is significant abnormal enlargement of the uterus. The uterus measures 18 cm AP by 10 cm height by 11 cm wide. Intermediate 3 mile so appears thickened. Most probably related to p ostpartum state. There is no periuterine fluid evident. There was some congested veins on both side s of the uterus, not appearing thrombosed. There are no abnormal adnexal masses and there is no free fluid in the pelvis. URINARY BLADDER: No calculi nor obvious masses evident OSSEOUS: No fractures and no significant osseous lesions. IMPRESSION: 1. There is significant enlargement of the uterus. Most probably post . 2. No abnormal adnexal masses. No free fluid evident in the pelvis. Report called by myself to ER physician 02/27/2024 10:05 a.m. RADIATION DOSE DELIVERED: 1,169.66mGy.cm Total DLP DATA REPOSITORY: All CT scans at this facility are submitted to the National Radiology Data Registry (NRDR) Dose Index Registry (DIR) with the [employer] (ACR). RADIATION OPTIMIZATION: All CT scans at this facility use at least one of these dose optimization te chniques: automated exposure control; mA and/or kV adjustment per patient size (includes targeted exa ms where dose is matched to clinical indication); or iterative reconstruction.
[2024-02-27] MEDS: Normal Saline - Diluent 50 ML VIAL IJ (09:33)
[2024-02-27] MEDS: Omnipaque 350 MG/ML 100 ML BTL IJ (09:34)
--- NOTE | 2024-02-27 09:39 | W.PM.PROGNOT ---
Date of Service Date of service: 02/27/24 Time of Service: 09:39 Subjective Subjective Patient reports: no new complaints Objective Last Vital Signs Temp 100.1 F H 02/27/24 08:37 Pulse 114 H 02/27/24 08:45 Resp 27 H 02/27/24 08:45 BP 103/36 L 02/27/24 08:45 Pulse Ox 97 02/27/24 08:45 Laboratory Results - last 24 hr 02/27/24 02/27/24 02/27/24 07:00 07:33 07:40 WBC 25.04 H* RBC 4.36 Hgb 10.0 L Hct 32.6 L MCV 75 L MCH 22.9 L MCHC 30.7 L RDW 16.8 H Plt Count 283 MPV 10.1 Immature Gran % See Differential Neutrophils % 76.0 Band Neutrophils % 13 Lymphocytes % 6.0 Monocytes % 5.0 Eosinophils % 0.0 Basophils % 0.0 Nucleated RBC % 0.1 Absolute Neutrophils 22.29 H Absolute Lymphocytes 1.50 Absolute Monocytes 1.25 H Absolute Eosinophils 0.00 Absolute Basophils 0.00 RBC Morphology See Below Polychromasia Present Microcytosis 1+ PT 9.8 INR 1.0 APTT 30.3 VBG Lactate 1.7 H Sodium 139 Potassium 3.4 L Chloride 105 Carbon Dioxide 23.4 Anion Gap 10.6 BUN 6 L Creatinine 0.8 Est GFR (CKD-EPI 2020) 106.11 Glucose 103 Calcium 8.5 Total Bilirubin 0.22 AST 30 ALT 23 Alkaline Phosphatase 114 Troponin I 9 Total Protein 6.8 Albumin 2.1 L COVID-19 Source Nasopharynx SARS-CoV-2 (PCR) Negative Influenza Type A (PCR) Negative Influenza Type B (PCR) Negative RSV (PCR) Negative ABO/Rh A Positive Antibody Screen NEGATIVE Objective Narrative Objective Narrative: I spoke with the patient regarding current medical status. [facility] service. Ambulance transport is being arranged she will have a CAT scan prior to her transfer to the birthing facility. Antibiotics have been ordered and reviewed. Time Spent with Patient Time Spent with Patient: 25-34 minutes Time was spent: preparing to see the patient(eg.review tests), obtaining and/or reviewing separately otained hiistory, referring, communicating with other health veterinarian laboratory animal care, counseling the patient and care coordination
[2024-02-27 10:25] LABS: HCT 29.2 % (36.0-46.0)
--- NOTE | 2024-02-27 10:28 | PGE_ITS ---
Date of Service Date of service: 02/27/24 Time of Service: 10:28 Assessment and Plan Assessment and plan (1) Vaginal after section: Status: Acute (2) Fever: Status: Acute Assessment and plan: Pt has received antibiotic therapy and had CT of abd/pelvis that was unremarkable for pelvic fluid collection or abscesses. Pt has been accepted in transfer to [facility] via ambulance. Objective Last Vital Signs Temp 100.1 F H 02/27/24 08:37 Pulse 128 H 02/27/24 09:31 Resp 29 H 02/27/24 09:31 BP 134/73 02/27/24 09:31 Pulse Ox 99 02/27/24 09:31 Laboratory Results - last 24 hr 02/27/24 02/27/24 02/27/24 07:00 07:33 07:40 WBC 25.04 H* RBC 4.36 Hgb 10.0 L Hct 32.6 L MCV 75 L MCH 22.9 L MCHC 30.7 L RDW 16.8 H Plt Count 283 MPV 10.1 Immature Gran % See Differential Neutrophils % 76.0 Band Neutrophils % 13 Lymphocytes % 6.0 Monocytes % 5.0 Eosinophils % 0.0 Basophils % 0.0 Nucleated RBC % 0.1 Absolute Neutrophils 22.29 H Absolute Lymphocytes 1.50 Absolute Monocytes 1.25 H Absolute Eosinophils 0.00 Absolute Basophils 0.00 RBC Morphology See Below Polychromasia Present Microcytosis 1+ PT 9.8 INR 1.0 APTT 30.3 VBG Lactate 1.7 H Sodium 139 Potassium 3.4 L Chloride 105 Carbon Dioxide 23.4 Anion Gap 10.6 BUN 6 L Creatinine 0.8 Est GFR (CKD-EPI 2020) 106.11 Glucose 103 Calcium 8.5 Total Bilirubin 0.22 AST 30 ALT 23 Alkaline Phosphatase 114 Troponin I 9 Total Protein 6.8 Albumin 2.1 L COVID-19 Source Nasopharynx SARS-CoV-2 (PCR) Negative Influenza Type A (PCR) Negative Influenza Type B (PCR) Negative RSV (PCR) Negative ABO/Rh A Positive Antibody Screen NEGATIVE 02/27/24 10:15 WBC RBC Hgb 9.0 L Hct 29.2 L MCV MCH MCHC RDW Plt Count MPV Immature Gran % Neutrophils % Band Neutrophils % Lymphocytes % Monocytes % Eosinophils % Basophils % Nucleated RBC % Absolute Neutrophils Absolute Lymphocytes Absolute Monocytes Absolute Eosinophils Absolute Basophils RBC Morphology Polychromasia Microcytosis PT INR APTT VBG Lactate Sodium Potassium Chloride Carbon Dioxide Anion Gap BUN Creatinine Est GFR (CKD-EPI 2020) Glucose Calcium Total Bilirubin AST ALT Alkaline Phosphatase Troponin I Total Protein Albumin COVID-19 Source SARS-CoV-2 (PCR) Influenza Type A (PCR) Influenza Type B (PCR) RSV (PCR) ABO/Rh Antibody Screen Objective Narrative Objective Narrative: I reviewed CT of pelvis images and report: no pelvic abscesses or fluid collection. Uterus is gravid without evidence of retained products. Pt informed of results of CT scan. Time Spent with Patient Time Spent with Patient: <25 minutes Time was spent: preparing to see the patient(eg.review tests), indepentently interpreting results and counseling the patient
[2024-02-27 10:50] LABS: Troponin I 7 ng/L (<or=51)
[2024-02-27] MEDS: HYDROmorphone 2 MG/ML SYR 0.75 MG IVP (11:23)
--- NOTE | 2024-02-27 20:53 | W.ED.FU ---
Follow Up Plan: Positive aerobic blood cultures, patient transferred to [facility], 02/27/2024, will send blood cultures to tertiary care facility at this time
--- NOTE | 2024-02-27 21:05 | NUR.NOTE ---
Patient transferred to [facility]. Positive blood culter report faxed to [phone].Nursing Note:
== END 2024-02-27 11:37 | disposition short-term general hospital (02) ==
PROVIDERS: Emergency Provider Emergency Medicine
DX: O86.4 Pyrexia of unknown origin following delivery; O72.2 Delayed and secondary postpartum hemorrhage; R00.0 Tachycardia, unspecified
CPT/HCPCS: 36415; 80053; 86850; 86900; 86901; 87040; 87077; 87637; 93005; 96365; 96366; 96367; 96368; 96375; 99285; 74177; 83605; 84484; 85014; 85018; 85025; 85610; 85730; 93010; J0131; J0737; J1171; J1580; J2405; J3490

== ENCOUNTER 2024-05-05 10:19 | Emergency (ER) | payer MEDICAID, SELFPAY ==
[2024-05-05 10:28] VITALS: BP 116/83; PULSE 101; RESP 16; TEMP 36.8; O2SAT 100
--- OUTSIDE RECORDS SUMMARY | 2024-05-05 10:43 | XMS_ITS | Encounter Summary ---
Author Organization [facility] [place] [address] Care Team Providers Care Content Publisher Name Role Phone Mauri Villar MD Primary Care Provider [phone] Encounter Details Date Type Department Care Team (Late st Contact Info) Description 11/22/2019 12:15 AM EDT Ancillary Procedure Radiology Library at [facility] [place] [id number] Mauri Villar MD [address] [place] [address] [place], [place] [id number] Social History Tobacco Use Types Packs/Day Years [...] Abdomen Pelvis (11/22/2019 12:15 AM EDT) Narrative [facility] - 11/26/2019 11:56 AM EDT This exam is auto-finalizing. It's purpose is for storage only. Mauri Villar MD IMG FILM LIBRARY OR DERABLES [facility] [place], [place] documented in this encounter Visit Diagnoses Not on filedocumented in this encounter Care Teams Content Publisher Relationship Specialty Start Date End Date Mauri Villar MD [address] [address] PCP - General Pediatrics 07/28/17 12/11/23 documented as of this encounter
--- OUTSIDE RECORDS SUMMARY | 2024-05-05 10:43 | XMS_ITS | Encounter Summary ---
Author Organization [facility] Address [facility] [place] [address] Care Team Providers Care Measurement Operator Name Role Phone Mauri Villar MD Primary Care Provider [phone] Reason for Visit * Reason Onset Date Comments Letter for School/Work 12/06/2019 Encounter Details Date Type Department Care Team (Late st Contact Info) Description 12/06/2019 Telephone [place] [id number] Tania, ZOILA Solorzano [facility] [place] [address] Letter for School/Work Social History Tobacco Use [...] 12/06/2019 4:50 PM EDT Fax number : [phone] * Telephone Encounter - Birgit Lindsey - 12/06/2019 3:47 PM EDT Provider last [...] than 20 lbs. Would you like to pick up attendant your letter, fax, mail, or myD-H?Fax no email please, only as a last option To what address/fax#?PT to call back with fax # To whose attention?To Whom It May Concern documented in this encounter Plan of Treatment Not on file documented as of this encounter Visit Diagnoses Not on filedocumented in this encounter Care Teams Measurement Operator Relationship Specialty Start Date [place] [address] PCP - General Pediatrics 07/28/17 12/11/23 documented as of this encounter
--- OUTSIDE RECORDS SUMMARY | 2024-05-05 10:43 | XMS_ITS | Encounter Summary ---
Author Organization [facility] [place] [address] Care Team Providers Care Ep Tech Name Role Phone None Primary Care Provider Unavailabl e Reason for Visit * Auth/Cert (Routine) Specialty Diagnoses / Procedures Referred By Jack t Referred To Contact Diagnoses fever post- infection Procedures EMERGENCY IPI Jennifer Olivarez MD [facility] OBST[facility] [place] [address] [facility] Referral ID Status Reason Start Date Expiration Date Visits Re quested Visits Authorized [id number] 1 1 Encounter Details Date Type Department Care Team (Latest Contact Info) Description 02/27/2024 12:48 PM [facility] - 03/02/2024 11:19 AM [facility] Hospital [place] [address] Ros Earl MD [facility] [place] [address] Jennifer Olivarez MD [facility]ST[facility] [place] [address] Discharge Disposition: Home Social History Tobacco Use Types Packs/Day Years Used Date Smoking Tobacco: Every Day Cigarettes Smokeless Tobacco: Current Comments:vapes Alcohol Use Standard Drinks/Week Comments No 0 (1 standard drink = 0.6 oz pur e alcohol) [facility] Utilities Answer Date Recorded In the past 12 months has Kiko, gas, oil, or water [employer] threatened to shut off services in your home? No 02/26/2024 Hunger Vital Sign Answer Date Recorded Within the past 12 months, y ou worried that your food would run out before you got the money to buy more. Never true 02/26/20 24 Within the past 12 months, t he food you bought just didn't last and you didn't have money to get more. Never true 02/26/2024 PRAPARE - Transportation Answer Date Re corded In the past 12 months, has l ack of transportation kept you from medical appointments or from getting medications? No 11/2023 In the past 12 months, has l ack of transportation kept you from meetings, work, or from getting things needed for daily living? No 02/26/2024 Housing Stability Vital Sign Answer Wilfred e Recorded In the last 12 months, was t here a time when you were not able to pay the mortgage or rent on time? No 02/26/2024 In the past 12 months, how m any times have you moved where you were living? 0 02/26/2024 At any time in the past 12 m [facility], were you homeless or living in a fpc (including now)? No 02/26/2024 IPV Inpatient Questions Answer Date Recorded Does Anyone Try to Keep You From Having Contact with Others or Doing Things Outside Your Home? yes 02/27/2024 Feels Threatened by Someone yes 02/17 Feels Unsafe at Home or Work/School yes 02/27/2024 Physical Signs of Abuse Present yes 02/27/2024 Sex and Gender Information Value Date Recorded Sex Assigned at Not on file Gender Identity Not on file Sexual Orientation Not on file documented as of this encounter Last Filed Vital Signs Vital Sign Reading Time Taken Comments Blood Pressure 113/62 03/02/2024 8:24 AM EST Pulse 82 03/02/2024 8:24 AM EST Temperature 36.8 ??C (98.2 ??F) 03/02/2024 8:24 AM ES T Respiratory Rate 16 03/02/2024 8:24 AM EST Oxygen Saturation 98% 03/02/2024 6:29 AM EST Inhaled Oxygen Concentration - - Weight 127 kg (280 lb) 02/27/2024 1:13 PM EST Height 160 cm (5' 3) 02/27/2024 1:13 PM EST Body Mass Index 49.6 02/27/2024 1:13 PM EST documented in this encounter Discharge Summaries * Faith Jordan MD - 03/02/2024 11:19 AM EST Discharge Summary Patient Name: Andrea Hagan Patient Age: 23 y.o. Language: Slovak Race: White Ethnicity: Not nor Admit date: 02/27/2024 Discharge date and time: 03/02/2024 Attending Physician: Ros Earl MD Discharge Physician: Linowod Broussard MD Care Provider: [facility] Referring Hospital: Follow-up Recommendations for Providers: - Complete course of Cephalexin PO 1g QID for completion of 14 d course (through 03/12/24) - PPD#7 blood pressure check - follow up with local OBGYN per patient preference Inpatient Provider Contact Information: [facility] [employer] Department, Discharge Diagnoses (Hospital Problems) and Secondary Diagnoses (Chronic Problems) Active Hospital Problems Diagnosis fever Resolved Hospital Problems No resolved problems to display. 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 History of Presentation: Andrea Hagan is a 23 y.o. who was admitted on PPD#2 after a successful at [id number] an elective IOL (GBS negative), as a transfer from [facility] in the setting of fever and suspected endometritis. HPI: Andrea was discharged from the on PP#1 in a stable condition she reports that after she gothome she started feeling unwell with feeling nauseous, dizzy, lethargic and having a headache. She tried to rest and then woke up in the middle of the night soaked in sweat and was feeling generally unwell in the morning around 7 am, she presented to the ED at [facility]. At [facility]: - She was febrile to 101.6 on 02/27/2024 at 8:30 am - tachycardic to 110s, EKG sinus tachycardia - Labs: WBC 25.04 - Flu and Covid Negative. - Pelvic US: - kidneys symmetric in size, no evidence of renal calculi, no evidence of hydronephrosis. No renal mass or cyst identified - Normal appearing uterus, small amount of fluids in the endometrial cavity. - unremarkable bilateral ovaries - CT abdomen/Pelvis WNL - Received 900 ccs of IV fluids and was started on IV gentamicin and clindamycin and IV pitocin. On presentation to she reports that she felt somewhat better, Still endorsing feeling generally tired. Lower pelvic pain, Reports appropriate lochia, denies abnormal vaginal discharge. She is currently breast and formula feeding, She denies breast engorgement, welling or redness. She denies shortness or breath, or chest pain. She also denies dysuria, increase in urinary frequency or urgency. Review of Systems: Negative to complete review except as noted in the HPI. Hospital Course Including Delivery and Events # endometritis On presentation she had normal vital signs, was afebrile. She had significant fundal tenderness. IVgent and clinda was continued for presumed endometritis and she was given IV fluid resuscitation. Her WBC was 29 on admission trended down to 14 on HD #2 after 48 hours of gentamicin and clindamycin.On HD#2 her blood culture form [facility] was positive for Group A step. ID were consulted who recommended transition to beta lactam given safety profile with . They recommended test dose IV ceftriaxone on HD#2 in light of known high allergic reaction to amoxicillin. She tolerated this well. Bcxwas repeated 02/28/24 and was NGTD at 24-48 hrs. She clinically improved - no fever, leukocytosis no rmalized, and no fundal tenderness. She was transition to PO cephalexin 1000 mg QID for total 14 days (through 03/12) per ID recommendation. #gHTN: During her admission, her BP 110-120s/60-80s. HR 80-90s. Her pre- eclampsia labs are wnl. #General care She plans to breastfeed/pumping w/ supplementation. Pain was well controlled. She planned IUD at 6 wk . Delivery Information Information for the patient's : Yulia Hagan [[id number]] INFORMATION Yulia Hagan 02/25/2024 3:17 PM by Vaginal, Spontaneous Sex: male Gestational Age: 39w0d Measurements: Weight: 7 lb 1.9 oz (3230 g) APGARS One Minute Five Minutes Ten Minutes Totals: 8 9 Blood Loss: OB OR Quantitative Blood Loss Totals 02/25/24 0317 - 02/27/24 1709 Vaginal QBL Hospital Encounter 135 mL Total 135 Vital signs at Discharge: BP: 105/52, Heart Rate: (!) 104, Temp: 36.6 ??C (97.9 ??F), Resp: 20, BMI (Calculated): 49.59 Height: 160 cm (5' 3) (02/27/24 1313) Weight: 127 kg (280 lb) (02/27/24 1313) Functional and Cognitive status: good Important Studies and Lab Data: Labs: Last 3 wbc, hgb, hct plt Recent Labs 03/01/24 0650 02/29/24 0536 02/28/24 0456 WBC 8.89 14.33* 23.18* HGB 8.7* 8.4* 8.6* HCT 28.4* 27.3* 27.6* PLATELET 329 303 289 Last 3 Lytes Recent Labs 02/26/24 0814 NA 138 K 4.1 CL 105 CO2 20* BUN 7* CREATININE 0.63* Recent Results (from the past 72 hour(s)) Hemogram Result Value Ref Range White Blood Cell 8.79 4.00 - 9.50 x10(3)/mcL Red Blood Cell 4.22 4.00 - 5.21 x10(6)/mcL Hemoglobin 9.7 (L) 11.7 - 15.5 g/dL Hematocrit 31.1 (L) 35.7 - 45.8 % Mean Cell Volume 73.7 (L) 82.6 - 94.4 fL Mean Cell Hemoglobin 23.0 (L) 27.1 - 32.0 pg Mean Cell Hemoglobin Concentration 31.2 (L) 31.7 - 35.0 g/dL Platelet 335 145 - 357 x10(3)/mcL Mean Platelet Volume 10.9 7.6 - 12.9 fL RDW Standard Deviation 44.0 37.0 - 46.0 fL RDW coefficient of variation 16.6 (H) 11.5 - 14.1 % NRBC% auto 0.0 % NRBC Absolute <0.01 <0.01 x10(3)/mcL Syphilis Screening Antibody with reflex RPR Result Value Ref Range Syphilis IgG/IgM Negative Negative Type and screen ([place] [place] Result Value Ref Range ABORH Type A POSITIVE PATIENT HISTORY Found Expires at 2359 on: 02-27-2024 ANTIBODY SCREEN AUTOMATED Negative T&S only valid at [facility] ABORH RECHECK (PATIENT HISTORY FOUND) Result Value Ref Range ABORH Recheck Progress Complete OB Hold Result Value Ref Range OB Hold Specimen Status Reviewed in lab; specimen held per protocol. CBC (with Diff) Result Value Ref Range White Blood Cell 10.54 (H) 4.00 - 9.50 x10(3)/mcL Red Blood Cell 4.04 4.00 - 5.21 x10(6)/mcL Hemoglobin 9.3 (L) 11.7 - 15.5 g/dL Hematocrit 29.9 (L) 35.7 - 45.8 % Mean Cell Volume 74.0 (L) 82.6 - 94.4 fL Mean Cell Hemoglobin 23.0 (L) 27.1 - 32.0 pg Mean Cell Hemoglobin Concentration 31.1 (L) 31.7 - 35.0 g/dL Platelet 312 145 - 357 x10(3)/mcL Mean Platelet Volume 11.0 7.6 - 12.9 fL RDW Standard Deviation 44.1 37.0 - 46.0 fL RDW coefficient of variation 16.5 (H) 11.5 - 14.1 % NRBC% auto 0.0 % NRBC Absolute <0.01 <0.01 x10(3)/mcL Neutrophil % 60.7 % Neutrophil Absolute (ANC) - Automated 6.39 (H) 1.70 - 6.10 x10(3)/mcL Lymph % 30.6 % Lymph Absolute 3.23 (H) 0.90 - 3.20 x10(3)/mcL Monocyte % 6.9 % Monocyte Absolute 0.73 0.30 - 0.90 x10(3)/mcL Eos % 0.5 % Eos Absolute 0.05 0.00 - 0.40 x10(3)/mcL Basophil % 0.3 % Baso Absolute <0.04 0.00 - 0.10 x10(3)/mcL Immature Gran % 1.0 % Immature Gran Absolute 0.11 (H) 0.00 - 0.04 x10(3)/mcL Comprehensive metabolic panel Result Value Ref Range Glucose 76 65 - 199 mg/dL Blood Urea Nitrogen 7 (L) 8 - 18 mg/dL Creatinine 0.63 (L) 0.70 - 1.20 mg/dL Sodium 138 135 - 145 mMol/L Potassium 4.1 3.5 - 5.0 mMol/L Chloride 105 98 - 107 mMol/L Carbon Dioxide 20 (L) 22 - 31 mMol/L Anion Gap 13 5 - 15 mMol/L Calcium 8.7 8.5 - 10.5 mg/dL Protein, Total 6.2 6.1 - 8.0 g/dL Albumin 2.9 (L) 3.2 - 5.2 g/dL Aspartate Aminotransferase 26 <=30 unit/L Alanine Aminotransferase 14 0 - 30 unit/L Alkaline Phosphatase 117 (H) 35 - 105 unit/L Bilirubin, Total 0.2 <=1.3 mg/dL Est Glomerular Filtration Rate - Female 128 mL/min/1.73 m?? CBC (with Diff) Result Value Ref Range White Blood Cell 29.48 (H) 4.00 - 9.50 x10(3)/mcL Red Blood Cell 3.92 (L) 4.00 - 5.21 x10(6)/mcL Hemoglobin 9.1 (L) 11.7 - 15.5 g/dL Hematocrit 28.9 (L) 35.7 - 45.8 % Mean Cell Volume 73.7 (L) 82.6 - 94.4 fL Mean Cell Hemoglobin 23.2 (L) 27.1 - 32.0 pg Mean Cell Hemoglobin Concentration 31.5 (L) 31.7 - 35.0 g/dL Platelet 293 145 - 357 x10(3)/mcL Mean Platelet Volume 10.4 7.6 - 12.9 fL RDW Standard Deviation 44.6 37.0 - 46.0 fL RDW coefficient of variation 17.0 (H) 11.5 - 14.1 % NRBC% auto 0.0 % NRBC Absolute <0.01 <0.01 x10(3)/mcL Neutrophil % 81.4 % Neutrophil Absolute (ANC) - Automated 24.01 (H) 1.70 - 6.10 x10(3)/mcL Lymph % 7.0 % Lymph Absolute 2.05 0.90 - 3.20 x10(3)/mcL Monocyte % 5.4 % Monocyte Absolute 1.59 (H) 0.30 - 0.90 x10(3)/mcL Eos % 0.2 % Eos Absolute 0.06 0.00 - 0.40 x10(3)/mcL Basophil % 0.3 % Baso Absolute 0.08 0.00 - 0.10 x10(3)/mcL Immature Gran % 5.7 % Immature Gran Absolute 1.69 (H) 0.00 - 0.04 x10(3)/mcL Scan, Peripheral Blood Result Value Ref Range RBC Morphology Abnormal Platelet Estimate Normal Normal Microcyte 6-10 /HPF Ovalocytes 1-5 /HPF Platelet Clumps Present (A) (none) Lactate, Whole Blood Result Value Ref Range Lactate, Whole Blood 2.0 0.5 - 2.2 mmol/L Pending Studies and Lab Data: 02/29/24 Bcx - NGTD at discharge Discharge Conditions/Prognosis: good Discharge to: Home Contraceptive Plans: IUD Allergies at Discharge: Allergies Allergen Reactions Latex Hives Latex, Natural Rubber Amoxicillin Itching and Angioedema Diclofenac Nausea and hypertension Sulfa (Sulfonamide Antibiotics) Rash Immunizations Given this Hospitalization: Immunization History Administered Date(s) Administered Covid-19 Monovalent (Moderna Spikevax) 12yrs+ (0454-9445) 08/15/2020, 09/18/2020 Influenza PF, Split 02/11/2014 Discharge Medications: Your Medications UNREVIEWED medications - Discuss With Your Provider Dose Details acetaminophen 325 mg tablet Commonly known as: Tylenol Take 3 tablets by mouth every 6 hours as needed for Pain. 975 mg Refills: 0 ibuprofen 600 mg tablet Commonly known as: Advil Take 1 tablet by mouth every 6 hours as needed for Pain. 600 mg Refills: 0 pantoprazole EC [address] tablet Commonly known as: Protonix Take 1 tablet by mouth Daily at Noon. 1 tablet Refills: 0 polyethylene glycoL 17 gram oral powder packet Commonly known as: Miralax Take 17 g by mouth daily. 17 g Refills: 0 + DHA 28 mg iron-800 mcg-200 mg Combo Pack Take by oral route. Generic drug: 95-iron wey-lpoow-hif Refills: 0 Smoking Status at Discharge: Social History Tobacco Use Smoking Status Every Day Types: Cigarettes Smokeless Tobacco Current Tobacco Comments vapes Instructions Given to Patient at Discharge: There are no outpatient Patient Instructions on file for this admission. General Instructions None Discharge References/Attachments None documented in this encounter Discharge Instructions * Discharge Instructions* Zoey Frances RN - 03/02/2024 11:10 AM EST Images from the original note were not included. Nurse Inpatient Note - Vaginal Delivery Follow-ups: ? 2 week and 6 week visit will be scheduled with your primary OB provider ? 6 week visit will be scheduled with your primary OB provider ? please call to schedule your 6 week visit with your primary OB provider Maternal Discharge Instructions Rest: Although it may seem impossible to get enough rest, simple planning will help. Plan to rest, and/or sleep when your baby does. Limiting visitors also helps. Other family members can help by doing housework, caring for other children and/or helping limit visitors. Activity: Exercise can be gradually increased following your delivery, depending on the doctor's recommendation. It is recommended that you do not swim until the vaginal bleeding stops or perform anyheavy lifting for six weeks. ???Aim to stay active for 20-30 minutes a day. When you first start exercising after childbirth, try simple exercises that help strengthen major muscle groups, including abdominal and backmuscles. Gradually add moderate- intensity exercise. Remember, even 10 minutes of exercise benefits your body. If you exercised vigorously before or you are a bliss press operator, you can work up to vigorous-intensity activity. Stop exercising if you feel pain.?? https://www.acog.org/Patients/FAQs/Icujzpob-Meiwj-Vijeyfosz?IsMobileSet=false#ho w Nutrition: Your diet following the of your baby is as important as it was before the baby wasborn. Drinking a minimum of 6-8 glasses of water a day will help keep you hydrated. Continue takingyour vitamins until you are no longer . Do not attempt to lose weight during the first six weeks. Sweating. Hormonal changes following delivery frequently cause night sweats which are normal over the next 6 weeks. Sleeping on towels and using a fan may make you more comfortable. Lochia: (Flow) Your flow should be no heavier than a normal period. It will be bright red and then transition to pink, brown, yellow, and finally colorless. This may last a few weeks. If your vaginalbleeding becomes bright red again, decrease your activity. We recommend pelvic rest until your bleeding and spotting stops and your episiotomy or vaginal tearhas healed. This may take up to six weeks. Pelvic rest excludes activities such as douching, use oftampons/menstrual cups or sexual intercourse. Bladder: For the next 2 weeks, empty your bladder every 2 hours while awake and at least every 4 hours at night. Perineum: For about a week continue to rinse yourself with warm water when you use the toilet. A sitz bath with Epsom salt taken 2 times a day and use of witch simeon may help relieve soreness. Kegel exercise, done regularly throughout the day, will help tighten the perineal muscles and speed recovery. If you received any stitches, these will dissolve on their own and do not need to be removed. If you had a 3rd degree or 4th degree vaginal laceration continue taking stool softeners as recommended by the doctor. Breast Care for Formula feeding mothers: Wear a well-fitting bra to support your breasts. Ice packsto your breasts (10 minutes at a time) as well as alternating Tylenol and Ibuprofen may be used to relieve discomfort from engorgement. Avoid stimulating your breasts: Do not let warm water from the shower fall directly on your breast;do not express any colostrum; avoid holding your baby near your breasts until your milk begins to decrease and engorgement is relieved. Breast Care for mothers: Practice careful positioning and frequent feeding as demonstrated in the hospital. The printed information in your packet covers this in detail. For More Information: https://www.acog.org/Patients or refer to ACOG's Your and Childbirth: Month to Month book which you may have received from the OB Clinic. Vaccination: If you received the Measles, Mumps, and Rubella (MMR) vaccine, varicella vaccine, or Hepatitis A vaccine during your hospitalization make sure to discuss this with your OB provider or your PCP at your next visit. You may need a second dose of the vaccine to receive effective vaccine protection. Medications: Please take your medication exactly as prescribed. Read all instructions that come with your medication. Using narcotic pain medication (such as oxycodone, hydromorphone (Dilaudid), morphine, fentanyl, ortramadol) may cause addiction. While addiction is more common in people with a personal or family history of addiction, it can occur in anyone. Taking more than the prescribed amount of medication or using with alcohol or other drugs can causeyou to stop breathing resulting in coma, brain damage, or . Opioids (oxycodone, hydromorphone/Dilaudid, morphine, fentanyl, tramadol) can slow reaction time, cause drowsiness, or cloud judgement. It is unsafe for you to drive or operate heavy machinery while taking this medication. Opioids (oxycodone, hydromorphone/Dilaudid, morphine, fentanyl, tramadol) are at risk of being diverted by anyone with access to your home. Opioids should be stored in a safe and secure place, such as a locked cabinet or safe. Unused opioids (oxycodone, hydromorphone/Dilaudid, morphine, fentanyl, tramadol) should be disposedof according to the label or patient information. If there are no specific instructions, medications may be returned to a take-back location or mixed with a small amount of water and an undesirable waste substance such as coffee grounds or cat litter. If you were taking opioids like heroin, methadone, Percocet and buprenorphine during and you stopped for any period of time, you are now more sensitive to this drug. That means that your old dose will be too strong, and you will be at risk for overdose if you take it. As we all are aware, opioid use is a concern in [place] and [place]. We recommend that families with any member at risk for overdose have a prescription for naloxone to reverse an overdose. Your providers would be happy to give you one. Depression occurs in a large percentage of women. It often occurs after 2 weeks and can last weeks or months. This is different than ??? blues?? which can occur during the firstfew days after you deliver. https://www.acog.org/Patients/FAQs/-Depression Signs of depression: Feeling sad, hopeless or losing interest in daily activities. Having a hard time falling asleep or sleeping too much; feeling tired even after a good sleep. Eating too much or too little. Writing, talking or thinking about hurting yourself or someone else. Call your provider or nurse as soon as you notice any of these signs or feel overwhelmed. Emergency Resources [place] Suicide Hotlines: or [place]: Call/Text [facility] Mental Health Crisis Hotline: Call/Text [facility] [facility] Mental Health Hotline: Call/Text Call your doctor or supreme court judge for: Seizure (call 911) Headache which isn't relieved with Tylenol Headache with visual changes Pain in your chest Shortness of breath Pain in upper right abdomen Fever more than 100.4 F Breast with hot, hard, tender areas plus flu-like symptoms including muscle aches and feeling unwell all over Increased abdominal pain, nausea, shaking chills Increased pain in the area of stitches outside your vagina Heavy bleeding that saturates a pad an hour Clots larger than an egg Red or swollen leg which is painful or warm to the touch Feeling of bladder fullness or pain Unable to urinate when feeling the urge Pain or bleeding with urination Urinary leakage without coughing or sneezing Urinary urgency or increased frequency Keep your follow up appointment. You may call the [facility] at any time for guidance or for answers to questions that come up prior to you follow up appointment. Your [place] Provider can be reached during office hours at [facility] AFTER OFFICE HOURS for the arcade attendant or supreme court judge school plant consultant Post- Warning Signs Most women who give recover without problems. But any woman can have complications after the of a baby. Learning to recognize these POST- warning signs and knowing what to do can save your life. These post- warning signs can become life-threatening if you don't receive medical care right away because: Pain in chest, obstructed breathing or shortness of breath (trouble catching your breath) may mean you have a blood clot in your lung or a heart problem Seizures may mean you have a condition called eclampsia Thoughts or feelings of wanting to hurt yourself or your baby may mean you have depression Bleeding (heavy), soaking more than one pad in an hour or passing an egg-sized clot or bigger may mean you have an obstetric hemorrhage Incision that is not healing, increased redness or any pus from episiotomy or C- section site may mean you have an infection Redness, swelling, warmth, or pain in the calk area of your leg may mean you have a blood clot Temperature of 100.4??F or higher, bad smelling vaginal blood or discharge may mean you have an infection Headache (very painful), vision changes, or pain in the upper right area of your belly may mean youhave high blood pressure or post preeclampsia Provider electronic signature confirms that discharge instructions were reviewed with the patient. A copy was printed and given to the patient. * Patient Instructions* Faith Jordan MD - 03/02/2024 11:10 AM EST Provider Instructions: - Complete course of PO cephalexin antibiotics - Will need PPD# 7 blood pressure check. - Follow up with your local OB provider at 6 week documented in this encounter Medications at Time of Discharge Medication Sig Dispensed Refills Start Date End Date cephALEXin (Keflex) 500 mg capsule Take 2 capsules by mouth 4 times daily. 40 capsule 03/02/2024 acetaminophen (Tylenol) 325 mg tablet Take 3 tablets by mouth every 6 hours as needed for Pain. 02/26/2024 ibuprofen (Advil) 600 mg tablet Take 1 tablet by mouth every 6 hours as needed for Pain. 02/26/2024 polyethylene glycoL (Miralax) 17 gram oral powder packet Take 17 g by mouth daily. 02/27/2024 95-iron wir-dzolq-ytk ( + DHA) 28 mg iron-800 mcg-200 mg Combo Pack Take by oral route. pantoprazole EC (Protonix) [address] tablet Take 1 tablet by mouth Daily at Noon. 01/05/2024 documented as of this encounter Progress Notes * Faith Jordan MD - 03/02/2024 11:10 AM EST Obstetrics Daily Progress Note Patient ID: Andrea Hagan is a 23 y.o. PPD#6 after a successful at 39w0d after an elective IOL (GBS negative). She is admitted as a transfer from [facility] in the setting of fever and suspected endometritis and blood culture positive for Group A strep. Overnight events: - AFVSS S: Andrea continues to feel really well. She denies fevers, chills or night sweats, dysuria or increase in her urinary frequency or urgency. Her vaginal bleeding is minimal and no concern abnormal vag discharge. She is ambulating independently without lightheadedness or dizziness. Voiding spontaneously. Tolerating fluids and PO without nausea or vomiting. Bonding well with . Establishing pumping/ . O: Last value Range last 24 hrs Temperature Temp: 36.8 ??C (98.2 ??F) Temp: [36.6 ??C (97.9 ??F)-37.1 ??C (98.8 ??F)] Heart Rate Heart Rate: 82 Heart Rate: [81-92] Blood Pressure BP: 113/62 BP: (113-139)/(61-79) Respiratory Rate Resp: 16 Resp: [16-18] SpO2 SpO2: 98 % SpO2: [98 %] No intake or output data in the 24 hours ending 03/02/24 1122 Exam: Gen: NAD Pulm: Normal work of breathing Abdomen: soft, NT/ND, no rebound or guarding, fundus firm below umbilicus and non-tender Extremities: nontender, warm, trace edema. Labs: Recent Labs 03/01/24 0650 02/29/24 0536 WBC 8.89 14.33* HGB 8.7* 8.4* HCT 28.4* 27.3* PLATELET 329 303 Blood cultures: 02/27/2024 collected in [facility]: Prelim: gram positive cocci. Final positive for Group A strep for twodifferent samples. 03/01/2024 blood culture: Pre-gamez NGTD Assessment & Plan: Andrea Hagan is a 23 y.o. PPD#6 after a successful at 39w0d after an elective IOL (GBS negative). She was admitted as a transfer from [facility] in the setting of fever and suspected endometritis, found Bcx GBS positive from [facility]. She was managed with 48 hrs IV gent/clinda,transitioned to IV ceftriaxone, and is clinically improving on exam. Her leukocytosis has normalized. Per recommendation from ID, will transition patient to PO cephalexin for total 14 day course. Stable for dc. General Care Continue routine care. Interval H&H stable on admission. s/p QBL 135. S/p venofer. No s/s anemia. VTE prophylaxis: SCDs Immunization needs: Rh+, no Rhogam indicated. /pumping and supplementing with formula Contraception plan: 6wk IUD Follow up: patient would like to fu with [facility] OB provider. Other Maternal Concerns gHTN: BP: (113-139)/(61-79) BP range over the last 24 hours. She will need PPD#7 BP check Bipolar disorder, depression, anxiety: not on medications, mood stable. endometritis - continue PO abx as stated above. Discharge today. This patient was seen and discussed with Dr. Broussard, Attending [employer]. Faith Jordan MD, PGY4 Obstetrics and Gynecology 03/02/2024 Associated attestation - Linwood Broussard MD - 03/02/2024 6:19 PM EST Patient seen, chart reviewed, discussed with team and agree with resident note. Doing well. OK for discharge. MD Omega * Юлия Conway MD - 03/01/2024 6:44 AM EST Obstetrics Daily Progress Note Patient ID: Andrea Hagan is a 23 y.o. PPD#5 after a successful at 39w0d after an elective IOL (GBS negative). She is admitted as a transfer from [facility] in the setting of fever and suspected endometritis and blood culture positive for Group A strep. Overnight events: - Afebrile, Stable vital signs, last febrile to 101.6 on 02/27/2024 at 8:30 am - tolerated test dose of ceftriaxone well. S: Andrea continues to feel really well. She was able to rest comfortably. Her pelvic pain is significantly improved. She denies fevers, chills or night sweats, dysuria or increase in her urinary frequency or urgency. Her vaginal bleeding has been appropriate. She is ambulating independently without lightheadedness or dizziness. Voiding spontaneously. Tolerating fluids and PO without nausea or vomiting. O: Last value Range last 24 hrs Temperature Temp: 37 ??C (98.6 ??F) Temp: [36.6 ??C (97.9 ??F)-37 ??C (98.6 ??F)] Heart Rate Heart Rate: 92 Heart Rate: [84-98] Blood Pressure BP: 119/64 BP: (119-125)/(60-85) Respiratory Rate Resp: 18 Resp: [17-18] SpO2 SpO2: 98 % SpO2: [96 %-98 %] No intake or output data in the 24 hours ending 03/01/24 1820 Exam: Gen: NAD Pulm: Normal work of breathing Abdomen: soft, NT/ND, no rebound or guarding, fundus firm below umbilicus. Extremities: nontender, warm, trace edema. Labs: Recent Labs 03/01/24 0650 02/29/24 0536 02/28/24 0456 WBC 8.89 14.33* 23.18* HGB 8.7* 8.4* 8.6* HCT 28.4* 27.3* 27.6* PLATELET 329 303 289 Blood cultures: 02/27/2024 collected in [facility]: Prelim: gram positive cocci. Final positive for Group A strep for twodifferent samples. 03/01/2024 blood culture: Pre-gamez No growth at 18-24 hours Assessment & Plan: Andrea Hagan is a 23 y.o. PPD#4 after a successful at 39w0d after an elective IOL (GBS negative). She is admitted as a transfer from [facility] in the setting of fever and suspected endometritis. She has received IV gentamicin and clindamycin for the past 48 hours with clinical improvement. Vital signs continue to be stable. Last febrile to 101.6 on 02/27/2024 at 8:30 am. Leukocytosis resolved today down to 8.89 from 29.48 on admission. She received 48 hours of IV gent and clinda which would be appropriate treatment for suspected endometritis given her clinical improvement as well. However given Bacteremia positive for Group A strep. ID consulted Yesterday and they recommended started Ceftriaxone which she has been since /13/2024. ID recommends continuing ceftriaxone today with plan to transition to cephalexin 1g QID on 03/02 for completion of 14 day course (Through 03/12) General Care Continue routine care. Hgb 9.7 --> 9.1 on admission. s/p QBL 135. S/p venofer. Continue to monitor for signs or symptoms of worsening anemia. VTE prophylaxis: SCDs Immunization needs: Rh+, no Rhogam indicated. /pumping and supplementing with formula Contraception plan: 6wk IUD Other Maternal Concerns gHTN: BP: (119-125)/(60-85) BP range over the last 24 hours, will continue to monitor; She will need PPD#7 BP check Bipolar disorder, depression, anxiety: not on medications, mood stable. Discharge planning pending clinical course likely tomorrow 03/02/2024 This patient was seen and discussed with Dr. Earl, Attending [employer]. Юлия Conway MD PGY-3 03/01/24 Associated attestation - Ros Earl MD - 03/09/2024 7:44 AM EST I have seen and examined the patient, providing wheeler components as outlined below. I have reviewed the resident???s above note. Pp endometritis, improving on IV Abx ROS EARL MD * Юлия Conway MD - 02/29/2024 6:23 AM EST Obstetrics Daily Progress Note Patient ID: Andrea Hagan is a 23 y.o. PPD#4 after a successful at 39w0d after an elective IOL (GBS negative). She is admitted as a transfer from [facility] in the setting of fever and suspected endometritis. Overnight events: - Afebrile, Stable vital signs, last febrile to 101.6 on 02/27/2024 at 8:30 am S: Andrea is feeling well and even better today compared to yesterday and significantly better compared to when she first came. She was able to rest comfortably. Her pelvic pain is significantly improved. She denies fevers, chills or night sweats, dysuria or increase in her urinary frequency or urgency. Her vaginal bleeding has been appropriate. She is ambulating independently without lightheadedness or dizziness. Voiding spontaneously. Tolerating fluids and PO without nausea or vomiting. O: Last value Range last 24 hrs Temperature Temp: 36.8 ??C (98.2 ??F) Temp: [36.7 ??C (98 ??F)-37 ??C (98.6 ??F)] Heart Rate Heart Rate: 82 Heart Rate: [82-91] Blood Pressure BP: 114/57 BP: (114-136)/(57-76) Respiratory Rate Resp: 18 Resp: [17-18] SpO2 SpO2: 98 % SpO2: [94 %-98 %] No intake or output data in the 24 hours ending 02/29/24 1046 Exam: Gen: NAD Pulm: Normal work of breathing Abdomen: soft, NT/ND, no rebound or guarding, fundus firm below umbilicus. Extremities: nontender, warm, trace edema. Labs: Recent Labs 02/29/24 0536 02/28/24 0456 02/27/24 1408 WBC 14.33* 23.18* 29.48* HGB 8.4* 8.6* 9.1* HCT 27.3* 27.6* 28.9* PLATELET 303 289 293 Blood cultures: 02/27/2024 collected in [facility]: Prelim: gram positive cocci. Final positive for Group A strep for twodifferent samples. Assessment & Plan: Andrea Hagan is a 23 y.o. PPD#4 after a successful at 39w0d after an elective IOL (GBS negative). She is admitted as a transfer from [facility] in the setting of fever and suspected endometritis. She has received IV gentamicin and clindamycin for the past 48 hours with clinical improvement. Vital signs continue to be stable. Last febrile to 101.6 on 02/27/2024 at 8:30 am. Leukocytosis continue to be downtredning down to 14.33 from 29.48 on admission. She received 48 hours of IV gent and clinda which would be appropriate treatment for suspected endometritis given her clinical improvement as well. However given Bacteremia positive for Group A strep. ID consulted today for further recommendations regarding antibiotics regimen. General Care Continue routine care. Hgb 9.7 --> 9.1 on admission. s/p QBL 135. S/p venofer. Continue to monitor for signs or symptoms of worsening anemia. VTE prophylaxis: SCDs Immunization needs: Rh+, no Rhogam indicated. /pumping and supplementing with formula Contraception plan: 6wk IUD Other Maternal Concerns gHTN: BP: (114-136)/(57-76) BP range over the last 24 hours, will continue to monitor; She will need PPD#7 BP check Bipolar disorder, depression, anxiety: not on medications, mood stable. Discharge planning pending clinical course. This patient was seen and discussed with Dr. Earl, Attending [employer]. Юлия Conway MD PGY-3 02/29/24 Associated attestation - Ros Earl MD - 03/09/2024 7:42 AM EST I have seen and examined the patient, providing wheeler components as outlined below. I have reviewed the resident???s above note. Endometritis improving after IV Abx ROS EARL MD * Юлия Conway MD - 02/28/2024 6:16 AM EST Obstetrics Daily Progress Note Patient ID: Andrea Hagan is a 23 y.o. PPD#3 after a successful at 39w0d after an elective IOL (GBS negative). She is admitted as a transfer from [facility] in the setting of fever and suspected endometritis. Overnight events: - Afebrile, Stable vital signs - Patient could not tolerate straight cath, urine culture deferred - Blood culture collected in [facility] prelim positive for gram positive cocci S: Andrea is feeling significantly better today. She feels more like herself. She was able to rest comfortably. Her pain is improved. She denies fevers or chills, dysuria or increase in her urinary frequency or urgency. Reports that her pelvic pain is also significantly better compared to yesterday, controlled on tylenol and Toradol. Her vaginal bleeding has been appropriate. She is ambulating independently without lightheadedness or dizziness. Voiding spontaneously. Tolerating fluids and PO without nausea or vomiting. O: Last value Range last 24 hrs Temperature Temp: 36.6 ??C (97.9 ??F) Temp: [36.4 ??C (97.6 ??F)-37.2 ??C (98.9 ??F)] Heart Rate Heart Rate: 78 Heart Rate: [78-104] Blood Pressure BP: 115/51 BP: (93-115)/(39-63) Respiratory Rate Resp: 19 Resp: [18-20] SpO2 SpO2: 96 % SpO2: [96 %-100 %] Intake/Output Summary (Last 24 hours) at 02/28/2024 0626 Last data filed at 02/27/2024 1800 Gross per 24 hour Intake -- Output 450 ml Net -450 ml Exam: Gen: NAD Pulm: clear to auscultation bilaterally Abdomen: soft, NT/ND, no rebound or guarding, fundus firm below umbilicus. Extremities: nontender, warm, trace edema. Labs: Recent Labs 02/28/24 0456 02/27/24 1408 02/26/24 0814 WBC 23.18* 29.48* 10.54* HGB 8.6* 9.1* 9.3* HCT 27.6* 28.9* 29.9* PLATELET 289 293 312 AST -- -- 26 ALT -- -- 14 CREATININE -- -- 0.63* Blood cultures: 02/28/2024 collected in [facility]: Prelim: gram positive cocci Assessment & Plan: Andrea Hagan is a 23 y.o. PPD#3 after a successful at 39w0d after an elective IOL (GBS negative). She is admitted as a transfer from [facility] in the setting of fever and suspected endometritis. Plan to continue IV gentamicin and clindamycin. Vital signs are stable overnight. Last febrile to 101.6 on 02/27/2024 at 8:30 am. Plan to continue IV antibiotics for another 24 hours. Labs notable for downtrending leukocytosis and patient clinically is significantly improved. Given mild CVA tenderness yesterday, plan was to collect urine culture but patient was unable to tolerate straight cath. Defer collection at this time given improved clinical status on current antibiotics regimen. Plan repeat CBC tomorrow AM. General Care Continue routine care. Hgb 9.7 --> 9.1 on admission. s/p QBL 135. S/p venofer. Continue to monitor for signs or symptoms of worsening anemia. VTE prophylaxis: SCDs Immunization needs: Rh+, no Rhogam indicated. /pumping and supplementing with formula Contraception plan: 6wk IUD Other Maternal Concerns gHTN: BP: (93-115)/(39-63) BP range over the last 24 hours, will continue to monitor; She will needPPD#7 BP check Bipolar disorder, depression, anxiety: not on medications, mood stable. This patient was seen and discussed with Dr. Earl, Attending [employer]. Юлия Conway MD PGY-3 02/28/2024 * Rola Montes RN - 02/27/2024 6:32 PM EST Unable to straight cath. Patient could not tolerate and does not want to try again. MD team aware no new orders received documented in this encounter H&P Notes * Юлия Conway MD - 02/27/2024 3:02 PM EST Obstetrical Admission Note Andrea Hagan is a 23 y.o. PPD#2 after a successful at 39w0d after an elective IOL (GBS negative). She is admitted as a transfer from [facility] in the setting of fever and suspected endometritis. HPI: Andrea was discharged from the on PP#1 in a stable condition she reports that after she gothome she started feeling unwell with feeling nauseous, dizzy, lethargic and having a headache. She tried to rest and then woke up in the middle of the night soaked in sweat and was feeling generally unwell in the morning around 7 am, she presented to the ED at [facility]. At [facility]: - She was febrile to 101.6 on 02/27/2024 at 8:30 am - tachycardic to 110s, EKG sinus tachycardia - Labs: WBC 25.04 - Flu and Covid Negative. - Pelvic US: - kidneys symmetric in size, no evidence of renal calculi, no evidence of hydronephrosis. No renal mass or cyst identified - Normal appearing uterus, small amount of fluids in the endometrial cavity. - unremarkable bilateral ovaries - CT abdomen/Pelvis WNL - Received 900 ccs of IV fluids and was started on IV gentamicin and clindamycin and IV pitocin. On presentation to she reports that she felt somewhat better, Still endorsing feeling generally tired. Lower pelvic pain, Reports appropriate lochia, denies abnormal vaginal discharge. She is currently breast and formula feeding, She denies breast engorgement, welling or redness. She denies shortness or breath, or chest pain. She also denies dysuria, increase in urinary frequency or urgency. Review of Systems: Negative to complete review except as noted in the HPI. Active Hospital Problems Diagnosis fever Resolved Hospital Problems No resolved problems to display. Active Non-Hospital Problems Diagnosis Encounter for induction of labor Myofascial pain syndrome Kienb??ck's disease AIDAN (juvenile idiopathic arthritis) s/p left knee Benito osteotomy and lateral release 09/08/14 (Zhang) Recurrent dislocation of right patella - s/p Benito osteotomy, medial imbrication, lateral release (02/10/14) Knee pain, right R knee arthroscopy, microfracture & medial patellar realignment procedure 02/12 Vicente Effusion of knee joint Effusion of knee joint, left Past Medical History: Diagnosis Date Anemia Fracture of distal femur Per Mom, fx of lower femur and upper (?) tibia, long leg case GDM (gestational diabetes mellitus) Gestational hypertension Obesity Past Surgical History: Procedure Laterality Date SECTION PRO APPLICATION LONG LEG CAST THIGH-TOE 08/31/2010 CAST APPLICATION, LONG LEG (THIGH TO TOES) performed by BRENDAN NAVARRO at [facility] MAIN OR PRO APPLICATION LONG LEG CAST THIGH-TOE 12/16/2010 CAST APPLICATION, LONG LEG (THIGH TO TOES) performed by JENNIFER ZHANG at [facility] MAIN OR PRO ARTHROSCOPY KNEE REMOVAL LOOSE/FOREIGN BODY 12/16/2010 ARTHROSCOPY KNEE REMOVE LOOSE BODY performed by JENNIFER ZHANG at [facility] MAIN OR PRO ARTHROSCOPY KNEE REMOVAL LOOSE/FOREIGN BODY 02/13/2012 ARTHROSCOPY KNEE REMOVE LOOSE BODY performed by JENNIFER ZHANG at [facility] MAIN OR PRO ARTHROSCOPY KNEE REMOVAL LOOSE/FOREIGN BODY Right 02/10/2014 ARTHROSCOPY KNEE REMOVE LOOSE BODY performed by Jennifer Zhang MD at [facility] OR PRO ARTHROTOMY/EXPLORE/TREAT KNEE JOINT 02/13/2012 ARTHROTOMY, KNEE WITH EXPLORATION performed by JENNIFER ZHANG at [facility] OR PRO DRAIN/INJECT LARGE JOINT/BURSA 04/05/2011 ARTHROCENTESIS, ASPIRATION OR INJECTION, MAJOR JOINT OR BURSA, KNEE performed by JENNIFER ZHANG at [facility] OR PRO KNEE SCOPE, ABRASN ARTHROPLASTY 12/16/2010 ARTHROSCOPY KNEE, MULTIPLE DRILLING, MICROFRACTURE performed by JENNIFER ZHANG at [facility] MAIN OR PRO KNEE SCOPE, ABRASN ARTHROPLASTY 02/13/2012 ARTHROSCOPY KNEE, MULTIPLE DRILLING, MICROFRACTURE performed by JENNIFER ZHANG at [facility] OR PRO KNEE SCOPE, DIAGNOSTIC 08/31/2010 ARTHROSCOPY KNEE, DIAGNOSTIC performed by BRENDAN NAVARRO at [facility] OR [facility] KNEE SCOPE, DIAGNOSTIC Left 09/08/2014 ARTHROSCOPY KNEE, DIAGNOSTIC performed by Jennifer Zhang MD at [facility] OR [facility] KNEE SCOPE, DRILL OSTE DISS+INT FIX 08/31/2010 ARTHROSCOPY KNEE, DRILLING & FIXATION OF OCD performed by BRENDAN NAVARRO at [facility] MAIN OR PRO KNEE SCOPE, PART SYNOVECT 04/05/2011 ARTHROSCOPY KNEE SYNOVECTOMY LIMITED performed by JENNIFER ZHANG at [facility] MAIN OR PRO KNEE SCOPE, SHAVE ARTICULAR CART 08/31/2010 ARTHROSCOPY KNEE CHONDROPLASTY performed by BRENDAN NAVARRO at [facility] MAIN OR PRO OSTEOTOMY TIBIA Right 02/10/2014 OSTEOTOMY, TIBIA performed by Jennifer Zhang MD at [facility] MAIN OR PRO OSTEOTOMY TIBIA Left 09/08/2014 OSTEOTOMY, TIBIA performed by Jennifer Zhang MD at [facility] MAIN OR PRO RECONSTRUCTION DISLOC PATELLA W/EXTENSOR REALIGN &/OR MUSCLE REL 12/16/2010 PATELLAR REALIGNMENT performed by BRENDAN NAVARRO at [facility] MAIN OR PRO RECONSTRUCTION DISLOCATING PATELLA 02/13/2012 REPAIR DISLOCATING PATELLA performed by JENNIFER ZHANG at [facility] MAIN OR PRO RECONSTRUCTION DISLOCATING PATELLA Right 02/10/2014 REPAIR DISLOCATING PATELLA performed by Jennifer Zhang MD at [facility] MAIN OR TONSILLECTOMY AND ADENOIDECTOMY OB History 4 Para 3 Term 3 AB 1 Living 4 SAB 1 IAB Ectopic Multiple 1 Live Births 4 # Outc Date GA Lbr Christiano/2nd Wgt Sex Type Anes PTL Lv 1 SAB 2017 2 Term 2021 39w0d 3.175 kg (7 lb) F Vag-Spont Living Complications: Hemorrhage Comments: IV iron infusions 3A Term 2022 37w0d 2.495 kg (5 lb 8 oz) M C-S scar Living Complications: Malpresentation of fetus 3B Term 2022 37w0d 3.062 kg (6 lb 12 oz) F C-S scar Living Complications: Malpresentation of fetus, Gestational diabetes, Hypertension affecting 4 Term 02/2024 39w0d 3.23 kg (7 lb 1.9 oz) M Vag-Spont EPI No Living Medications Prior to Admission Medication Sig Dispense Refill Last Dose acetaminophen (Tylenol) 325 mg tablet Take 3 tablets by mouth every 6 hours as needed for Pain. ibuprofen (Advil) 600 mg tablet Take 1 tablet by mouth every 6 hours as needed for Pain. polyethylene glycoL (Miralax) 17 gram oral powder packet Take 17 g by mouth daily. 95-iron wlz-jgpes-ekl ( + DHA) 28 mg iron-800 mcg-200 mg Combo Pack Take by oral route. pantoprazole EC (Protonix) [address] tablet Take 1 tablet by mouth Daily at Noon. Allergies Allergen Reactions Latex Hives Latex, Natural Rubber Amoxicillin Itching and Angioedema Diclofenac Nausea and hypertension Sulfa (Sulfonamide Antibiotics) Rash Family History Problem Relation Age of Onset Anemia Mother Hypertension Father Type 2 Diabetes Father Type 2 Diabetes Maternal Grandmother Anemia Maternal Grandmother Anemia Maternal Aunt Cancer Other High Blood Pressure Other Myocardial Infarction Other Arthritis Neg Hx Social History Occupational History Occupation: student Tobacco Use Smoking status: Every Day Types: Cigarettes Smokeless tobacco: Current Tobacco comments: vapes Vaping Use Vaping status: Every Day Substance and Sexual Activity Alcohol use: No Drug use: No Sexual activity: Yes control/protection: Other-see comments Comment: N/a Immunization History Immunization History Administered Date(s) Administered Covid-19 Monovalent (Moderna Spikevax) 12yrs+ ([id number]) 08/15/2020, 09/18/2020 Influenza PF, Split 02/11/2014 Last Set of Vitals: BP 105/63 Pulse (!) 104 Temp 36.7 ??C (98.1 ??F) (Oral) Resp 20 Ht 160 cm (5' 3) Wt 127 kg (280 lb) SpO2 98% BMI 49.60 kg/m?? Physical Exam Gen: AAO, laying in bed, no acute distress, Cardio: nl rhythm, S1, S2, no M/C/R/G Pulm: CTA BL, no W/C/R Breast: soft, non tender, no erythema or swelling bilaterally Abd: soft, non distended, significant tenderness with fundal palpation, fundus firm 2 cm below the umbilicus Back: CVA tenderness on the left side, no CVA tenderness on the right Ext: warm, well-perfused no calf tenderness Neuro: grossly intact Labs: Latest Reference Range & Units 02/27/24 14:08 White Blood Cell 4.00 - 9.50 x10(3)/mcL 29.48 (H) Red Blood Cell 4.00 - 5.21 x10(6)/mcL 3.92 (L) Hemoglobin 11.7 - 15.5 g/dL 9.1 (L) Hematocrit 35.7 - 45.8 % 28.9 (L) Mean Cell Volume 82.6 - 94.4 fL 73.7 (L) Mean Cell Hemoglobin 27.1 - 32.0 pg 23.2 (L) Mean Cell Hemoglobin Concentration 31.7 - 35.0 g/dL 31.5 (L) RDW Standard Deviation 37.0 - 46.0 fL 44.6 RDW coefficient of variation 11.5 - 14.1 % 17.0 (H) Platelet 145 - 357 x10(3)/mcL 293 Mean Platelet Volume 7.6 - 12.9 fL 10.4 NRBC% auto % 0.0 NRBC Absolute <0.01 x10(3)/mcL <0.01 Neutrophil Absolute (ANC) - Automated 1.70 - 6.10 x10(3)/mcL 24.01 (H) Neutrophil % % 81.4 Immature Gran % % 5.7 Lymph % % 7.0 Monocyte % % 5.4 Eos % % 0.2 Basophil % % 0.3 Immature Gran Absolute 0.00 - 0.04 x10(3)/mcL 1.69 (H) Lymph Absolute 0.90 - 3.20 x10(3)/mcL 2.05 Monocyte Absolute 0.30 - 0.90 x10(3)/mcL 1.59 (H) Eos Absolute 0.00 - 0.40 x10(3)/mcL 0.06 Baso Absolute 0.00 - 0.10 x10(3)/mcL 0.08 (H): Data is abnormally high (L): Data is abnormally low Latest Reference Range & Units 02/27/24 15:03 Lactate WB 0.5 - 2.2 mmol/L 2.0 Urine culture: Pending collection Assessment & Plan Andrea Hagan is a 23 y.o. PPD#2 after a successful at 39w0d after an elective IOL (GBS negative). She is admitted as a transfer from [facility] in the setting of fever and suspected endometritis. Given uterine tenderness and fever will continue treatment for endometritis with IV gentamicin and clindamycin and IV fluid resuscitations. Vital signs are stable on admission. Labs notable for leukocytosis. Discussed differential diagnosis of fever including mastitis which is a low suspicion for her given no clinical signs of breast engorgement or tenderness. Pyelonephritis which is less likely given no UTI symptoms but given L CVA tenderness, Straight cath urine culture collected and is pending. Plan repeat CBC tomorrow AM. General Care Continue routine care. Hgb 9.7 --> 9.1 on admission. s/p QBL 135. S/p venofer. Continue to monitor for signs or symptoms of worsening anemia. VTE prophylaxis: SCDs Immunization needs: Rh+, no Rhogam indicated. /pumping and supplementing with formula Contraception plan: 6wk IUD Other Maternal Concerns gHTN: normal blood pressure on admission, will continue to monitor; She will need PPD#7 BP check Bipolar disorder, depression, anxiety: not on medications, mood stable. This patient was seen and discussed with Dr. Olivarez, Attending [employer]. Юлия Conway MD PGY-3 02/27/2024 Associated attestation - Jnenifer Olivarez MD - 02/28/2024 7:12 AM EST I have seen the patient and reviewed Dr. Conway's above history and I agree with the details aswritten. The assessment and plan were formulated in discussion with me and I agree with them as documented. Jennifer Olivarez MD 02/28/24 7:12 AM documented in this encounter Miscellaneous Notes * Plan of Care - Priscila Hernandez RN - 03/02/2024 6:52 AM EST OUTCOME EVALUATION NOTE: OUTCOME SUMMARY: VSS, denied pain this shift. Lochia and fundus WNL. Independent in cares. boarding with pt; significant other present at bedside. Resting overnight between cares. PLAN MOVING FORWARD: IV abx Promote family bonding Discharge INDIVIDUALIZED FALL PREVENTION INTERVENTIONS: Patient-specific fall risk factors per assessment: [current deficits]: none Assistance [level of assistance required for transfers and ambulation]: independent Supervision [direct monitoring required during toileting and ADLs]: independent Surveillance [continuous indirect monitoring]: call wall within reach, purposeful rounding by RN Patient-specific fall prevention interventions for sensory deficits provided, if applicable: [X] N/A CARE PLAN GOAL OUTCOME EVALUATION: ongoing * Plan of Care - Agnes Owens RN - 03/01/2024 4:51 PM EST OUTCOME EVALUATION NOTE: OUTCOME SUMMARY: Patient has been doing well today. IV ABX administered per MAY. VSS and lochia remains WNL. Pain well controlled and managed per plan. Voiding well independently. Family-centered care provided. PLAN MOVING FORWARD: Continue to assess VS, fundus, and lochia per orders and PRN. Treat pain as needed. Continue to monitor for signs and symptoms of worsening infection. INDIVIDUALIZED FALL PREVENTION INTERVENTIONS: Patient-specific fall risk factors per assessment: [current deficits]: None. Assistance [level of assistance required for transfers and ambulation]: Independent. Supervision [direct monitoring required during toileting and ADLs]: Independent. Will call prn for help OOB if feeling dizzy or weak. Surveillance [continuous indirect monitoring]: Rounding by RN. Call wall within reach. Aware of when to call nurse. Patient-specific fall prevention interventions for sensory deficits provided, if applicable: [X] N/A CPG GOAL OUTCOME EVALUATION: Problem: Adult Inpatient Plan of Care Goal: Plan of Care Review Outcome: Ongoing (Interventions Implemented as Appropriate) Goal: Patient-Specific Goal (Individualized) Outcome: Ongoing (Interventions Implemented as Appropriate) Goal: Absence of Hospital-Acquired Illness or Injury Outcome: Ongoing (Interventions Implemented as Appropriate) Goal: Optimal Comfort and Wellbeing Outcome: Ongoing (Interventions Implemented as Appropriate) Goal: Readiness for Transition of Care Outcome: Ongoing (Interventions Implemented as Appropriate) Problem: Adjustment to Role Transition ( Vaginal Delivery) Goal: Successful Maternal Role Transition Outcome: Ongoing (Interventions Implemented as Appropriate) Problem: Bleeding ( Vaginal Delivery) Goal: Hemostasis Outcome: Ongoing (Interventions Implemented as Appropriate) Problem: Infection ( Vaginal Delivery) Goal: Absence of Infection Signs and Symptoms Outcome: Ongoing (Interventions Implemented as Appropriate) Problem: Pain ( Vaginal Delivery) Goal: Acceptable Pain Control Outcome: Ongoing (Interventions Implemented as Appropriate) Problem: Urinary Retention ( Vaginal Delivery) Goal: Effective Urinary Elimination Outcome: Ongoing (Interventions Implemented as Appropriate) Problem: Infection Goal: Absence of Infection Signs and Symptoms Outcome: Ongoing (Interventions Implemented as Appropriate) * Consult Note - Madison Blankenship MD - 03/01/2024 8:42 AM EST Images from the original note were not included. DEPARTMENT OF INFECTIOUS DISEASE & INTERNATIONAL [facility] INFECTIOUS DISEASE CONSULT PROGRESS NOTE Patient Info: Name: ANDREA HAGAN, 23 y.o., female Date of : 2000 Admission Date: 02/27/2024 Room/Bed Location: [facility] Consulting Attending: Ros Earl MD Consulting Service: Obstetrics Active ID Issue(s): Group A Strep Bacteremia in the setting of endometritis Antimicrobial(s): Current Ceftriaxone 2g q24h (03/01- Prior Gentamicin 410mg q24h 02/26-02/28 Clindamycin 900 q8h 02/26-02/28 Recent Events: - No acute events overnight - Tolerated test dose of ceftriaxone SUBJECTIVE - Feeling well today - Endorses mild pelvic cramping, which she thinks is normal cramping. This is not nearlyas painful as the pelvic pain at time of admission. - Eager to go home to be with her other children. Vital Signs: Last value Range last 24 hrs Temperature Temp: 36.8 ??C (98.2 ??F) Temp: [36.4 ??C (97.5 ??F)-36.8 ??C (98.2 ??F)] Heart Rate Heart Rate: 84 Heart Rate: [84-104] Blood Pressure BP: 124/65 BP: (121-134)/(60-78) Respiratory Rate Resp: 17 Resp: [16-18] SpO2 SpO2: 97 % SpO2: [93 %-98 %] Physical Exam General: 23 y.o. female sitting in chair comfortably, in no acute distress. HEENT: Normocephalic, atraumatic. Mucous membranes moist. Cardiovascular: Regular rate and rhythm. No murmurs. Peripheral pulses 2+. Respiratory: Clear to auscultation bilaterally. No increased work of breathing. Abdominal: Soft, non-tender, non-distended. Normoactive bowel sounds. Musculoskeletal: Full range of motion in upper and lower extremities bilaterally. No peripheral edema. Neurologic: Alert. Hearing intact to voice. Speech and language fluent. Normal muscle bulk and tone. Moving extremities spontaneously. Skin: No lesions or rash appreciated. Psychiatric: Responding appropriately. Thought content linear and logical. I have reviewed the pertinent laboratory, microbiology, and diagnostic/radiology/procedure results: LABS Chemistry Recent Labs 02/26/24 0814 NA 138 K 4.1 CL 105 CO2 20* BUN 7* CREATININE 0.63* GLUCOSE 76 CALCIUM 8.7 A1C No results for input(s): HA1C in the last 7068 hours. GI Recent Labs 02/26/24 0814 BILITOT 0.2 ALBUMIN 2.9* ALKPHOS 117* ALT 14 AST 26 Lipid Panel Hematology Recent Labs 03/01/24 0650 02/29/24 0536 02/28/24 0456 WBC 8.89 14.33* 23.18* HGB 8.7* 8.4* 8.6* PLATELET 329 303 289 Recent Labs 02/27/24 1408 NEUTROABS 24.01* Coags No results found for: INR, PT, PTT Lactate Recent Labs 02/27/24 1503 LACTATEVEN 2.0 CRP No results for input(s): CRP in the last 168 hours. ESR No results for input(s): SEDRATE in the last 168 hours. CK No results for input(s): CKMB in the last 168 hours. UA Component Value Date/Time SPGRAVITYUA 1.010 08/29/2017 1636 PHUADIP 7.0 08/29/2017 1636 PROTEINUADIP Negative 08/29/2017 1636 GLUCOSEU Negative 08/29/2017 1636 KETONESUA Negative 08/29/2017 1636 UROBILIUADIP 2.0 (A) 08/29/2017 1636 BLOODUADIP Moderate (A) 08/29/2017 1636 NITRATEUA Negative 08/29/2017 1636 LEUKOESTERUA Large (A) 08/29/2017 1636 BILIRUBINUA Negative 08/29/2017 1636 Microbiology: - 02/27/2024 blood cultures from [facility]: Group A strep 2/2 Microbiology Results (Last 30 days) Procedure Component Value Units Date/Time Blood culture [[id number]] Collected: 02/29/24 1317 Lab Status: In process Specimen: Blood, Venous Updated: 02/29/24 1448 Imaging/diagnostics: OS CT AP 02/26: Significant enlargement of the uterus, most likely . No abnormal adnexalmasses. No free fluid in pelvis. IMPRESSION: Andrea Hagan is a 23 y.o. female with a history of bipolar disorder, anxiety, depression, vaping, obesity, gestational hypertension, hemorrhage, and gestational diabetes mellitus, who presented on post- day 2 after vaginal delivery for fever and suspected endometritis, subsequently found to have Group A Strep bacteremia. Ms. Hagan's bacteremia is likely related to endometritis . Repeat blood culture is pending, which I suspect will be negative as Group A Strep tends to respond quickly to antibiotic treatment. I recommend continuing to monitor her clinical status for the next 24 hours. If she remains clinically stable and blood cultures are negative, it is reasonable to transitioning to oral cephalexin tomorrow (03/02) morning, for completion of 14 day treatment course. Given her history of amoxicillin reaction, I would recommend giving first dose of cephalexin while inpatient. RECOMMENDATIONS: - Follow-up blood culture - Continue ceftriaxone - Plan to transition to cephalexin 1g QID on 03/02 for completion of 14 day course (Through 03/12) Patient discussed with ID attending Dr. Angeline Mccray and ID Fellow Dr. Alyssia Powell. Thank you for the consult. ID consult service will sign off. Please do not hesitate to page with any questions or concerns. Please page ID Alexx team (pager [phone]) with questions or concerns. Madison Blankenship MD Internal Medicine, PGY-2 Infectious Disease Green Team #[id number] [facility] 03/01/2024 8:42 AM Associated attestation - Angeline Mccray MD - 03/01/2024 1:05 PM EST ID Attending Attestation I have seen and examined the patient, reviewed the chart as well as the documentation as written byDr. Blankenship. The assessment and plan were formulated in discussion with me and I agree with them as documented, with the following additions/modifications: Patient tolerated her test dose of IV ceftriaxone yesterday. On further investigation, it appears that she was prescribed a 7 day course of cephalexin in September 2023 and presumably tolerated this without issue. For today, I would continue IV ceftriaxone. If she continues to improve clinically and surveillance blood Cxs from yesterday are without growth by tomorrow AM, she can be transitioned to high-dose PO cephalexin at 1g four times daily to complete a 14 day total treatment course. We are highly motivated to maintain this patient on a beta lactam, rather than an alternate antibiotic class, due to its safety data with . We will sign off at this time, but please call back with questi ons. Angeline Mccray MD Staff Physician in Infectious Diseases * Consult Note - Madison Blankenship MD - 02/29/2024 11:29 AM EST Images from the original note were not included. DEPARTMENT OF INFECTIOUS DISEASE & INTERN[facility] INFECTIOUS DISEASE NEW CONSULT NOTE Patient Info: Name: ANDREA HAGAN, 23 y.o., female : 2000 Admission Date: 02/27/2024 Room/Bed Location: [facility] Consulting Attending: Ros Earl MD Consulting Service: Obstetrics Reason for Consult: 23yo #4 from vaginal delivery, re-admit for suspected endometritis has been on gentamicin and clindamycin for 24 hours. Blood cultures collected on 02/26 positive for Group A strep, recs regarding abx History of Present Illness: Andrea Hagan is a 23 y.o. female with a history of bipolar disorder, anxiety, depression, vaping, obesity, gestational hypertension, hemorrhage, and gestational diabetes mellitus, who presented on post- day 2 after vaginal delivery for fever and suspected endometritis. Ms. Hagan was admitted for induction of labor on 02/24/2024, and had an uncomplicated vaginal delivery of a male on 02/25/2024. She recovered well after delivery, and was diagnosed with gestational hypertension after having a few mildly elevated blood pressure. She was discharged on 02/25,feeling well. However, she presented to [facility] on 02/27/2024 after developing nausea, dizziness, lethargy, headache, syncope, and diaphoresis at home. Upon presentation to [facility], she was noted to be febrile to 101.6,tachycardic, with a leukocytosis to 25. She had a pelvic ultrasound which reportedly showed a smallamount of fluid in the endometrial cavity, but was otherwise unremarkable. CT abdomen/pelvis withinnormal limits. She was given an IV fluid bolus and then started on IV gentamicin, clindamycin, and pitocin for suspected endometritis. She was then transferred to [place] for further care. Upon evaluation at [place], she was noted to have uterine tenderness and was continued on IV gentamicin and clindamycin. She also complained of CVA tenderness, and urine culture was ordered although wasunable to be collected. Blood culture from [facility] was prelimarily positive for gram positive cocci on 04/30, which subsequently resulted as Group A Strep. She was continued on current antibiotic regimenand reported clinical improvement. Today, Andrea notes that she is feeling much better than at initial presentation. Her pelvic pain has resolved, and she is holding down food and drink. She does endorse history of amoxicillin reaction of tongue swelling and difficulty breathing. This occurred one year ago when treated for a dental i nfection. Review of Systems: Pertinent positives and negatives noted in HPI. 14 point ROS otherwise negative except noted in HPI. Past Infectious Diseases History: Antimicrobial assessment YES NO Prior ABX use in the past 3 months [] [x] Prior hospital admission in the past 3 months [x] [] ABX allergies [x] - Amoxicillin - tongue swelling and shortness of breath - Sulfa allergy reported from childhood, unknown reaction [] Antimicrobials: Active Gentamicin 410mg q24h 02/26- Clindamycin 900 q8h 02/26 - Discontinued None Prophylaxis None Past Medical History: Past Medical History: Diagnosis Date Anemia Fracture of distal femur Per Mom, fx of lower femur and upper (?) tibia, long leg case GDM (gestational diabetes mellitus) Gestational hypertension Obesity Past Surgical History: Past Surgical History: Procedure Laterality Date SECTION PRO APPLICATION LONG LEG CAST THIGH-TOE 08/31/2010 CAST APPLICATION, LONG LEG (THIGH TO TOES) performed by BRENDAN NAVARRO at [facility] MAIN OR PRO APPLICATION LONG LEG CAST THIGH-TOE 12/16/2010 CAST APPLICATION, LONG LEG (THIGH TO TOES) performed by JENNIFER ZHANG at [facility] MAIN OR PRO ARTHROSCOPY KNEE REMOVAL LOOSE/FOREIGN BODY 12/16/2010 ARTHROSCOPY KNEE REMOVE LOOSE BODY performed by JENNIFER ZHANG at [facility] MAIN OR PRO ARTHROSCOPY KNEE REMOVAL LOOSE/FOREIGN BODY 02/13/2012 ARTHROSCOPY KNEE REMOVE LOOSE BODY performed by JENNIFER ZHANG at [facility] MAIN OR PRO ARTHROSCOPY KNEE REMOVAL LOOSE/FOREIGN BODY Right 02/10/2014 ARTHROSCOPY KNEE REMOVE LOOSE BODY performed by Jennifer Zhang MD at [facility] MAIN OR PRO ARTHROTOMY/EXPLORE/TREAT KNEE JOINT 02/13/2012 ARTHROTOMY, KNEE WITH EXPLORATION performed by JENNIFER ZHANG at [facility] MAIN OR PRO DRAIN/INJECT LARGE JOINT/BURSA 04/05/2011 ARTHROCENTESIS, ASPIRATION OR INJECTION, MAJOR JOINT OR BURSA, KNEE performed by JENNIFER ZHANG at [facility] MAIN OR PRO KNEE SCOPE, ABRASN ARTHROPLASTY 12/16/2010 ARTHROSCOPY KNEE, MULTIPLE DRILLING, MICROFRACTURE performed by JENNIFER ZHANG at [facility] MAIN OR PRO KNEE SCOPE, ABRASN ARTHROPLASTY 02/13/2012 ARTHROSCOPY KNEE, MULTIPLE DRILLING, MICROFRACTURE performed by JENNIFER ZHANG at [facility] MAIN OR PRO KNEE SCOPE, DIAGNOSTIC 08/31/2010 ARTHROSCOPY KNEE, DIAGNOSTIC performed by BRENDAN NAVARRO at [facility] MAIN OR [facility] KNEE SCOPE, DIAGNOSTIC Left 09/08/2014 ARTHROSCOPY KNEE, DIAGNOSTIC performed by Jennifer Zhang MD at [facility] MAIN OR [facility] KNEE SCOPE, DRILL OSTE DISS+INT FIX 08/31/2010 ARTHROSCOPY KNEE, DRILLING & FIXATION OF OCD performed by BRENDAN NAVARRO at [facility] MAIN OR PRO KNEE SCOPE, PART SYNOVECT 04/05/2011 ARTHROSCOPY KNEE SYNOVECTOMY LIMITED performed by JENNIFER ZHANG at [facility] MAIN OR PRO KNEE SCOPE, SHAVE ARTICULAR CART 08/31/2010 ARTHROSCOPY KNEE CHONDROPLASTY performed by BRENDAN NAVARRO at [facility] MAIN OR PRO OSTEOTOMY TIBIA Right 02/10/2014 OSTEOTOMY, TIBIA performed by Jennifer Zhang MD at [facility] MAIN OR PRO OSTEOTOMY TIBIA Left 09/08/2014 OSTEOTOMY, TIBIA performed by Jennifer Zhang MD at [facility] MAIN OR PRO RECONSTRUCTION DISLOC PATELLA W/EXTENSOR REALIGN &/OR MUSCLE REL 12/16/2010 PATELLAR REALIGNMENT performed by BRENDAN NAVARRO at [facility] MAIN OR PRO RECONSTRUCTION DISLOCATING PATELLA 02/13/2012 REPAIR DISLOCATING PATELLA performed by JENNIFER ZHANG at [facility] MAIN OR PRO RECONSTRUCTION DISLOCATING PATELLA Right 02/10/2014 REPAIR DISLOCATING PATELLA performed by Jennifer Zhang MD at [facility] MAIN OR TONSILLECTOMY AND ADENOIDECTOMY Medications: Scheduled Meds: polyethylene glycoL (MIRALAX) oral powder 17 g Oral Daily senna-docusate 1 tablet Oral Daily Continuous Infusions: PRN Meds:.ibuprofen, [COMPLETED] gentamicin AND Gentamicin level, random AND Gentamicin Level - MAR Order Reminder, glycerin-witch Simeon, acetaminophen, oxyCODONE Allergies/Adverse drug reactions: Allergies Allergen Reactions Latex Hives Latex, Natural Rubber Amoxicillin Itching and Angioedema Diclofenac Nausea and hypertension Sulfa (Sulfonamide Antibiotics) Rash Family History: Family History Problem (# of Occurrences) Relation (Name,Age of Onset) Anemia (3) Mother, Maternal Grandmother, Maternal Aunt Cancer (1) Other Hypertension (1) Father Myocardial Infarction (1) Other High Blood Pressure (1) Other Type 2 Diabetes (2) Father, Maternal Grandmother Negative family history of: Arthritis Social History: Social History Socioeconomic History Marital status: Single Spouse name: Not on file Number of children: Not on file Years of education: Not on file Highest education level: Not on file Occupational History Occupation: student Tobacco Use Smoking status: Every Day Types: Cigarettes Smokeless tobacco: Current Tobacco comments: vapes Vaping Use Vaping status: Every Day Substance and Sexual Activity Alcohol use: No Drug use: No Sexual activity: Yes control/protection: Other-see comments Comment: N/a Other Topics Concern Poor oral hygiene Not Asked Bike safety Not Asked Vehicle safety Not Asked Service No Blood Transfusions No Caffeine Concern No Occupational Exposure No Hobby Hazards No Sleep Concern No Stress Concern No Weight Concern Yes Special Diet No Back Care No Exercise No Bike Helmet Not Asked Seat Belt No Self-Exams Not Asked Social History Narrative Lives with mother and stepfather during school year and father in [place] during summer. Social Determinants of Health Financial Resource Strain: Not on file Food Insecurity: No Food Insecurity (02/26/2024) Hunger Vital Sign Worried About Running Out of Food in the Last Year: Never true Ran Out of Food in the Last Year: Never true Transportation Needs: No Transportation Needs (02/26/2024) PRAPARE - Transportation Lack of Transportation (Medical): No Lack of Transportation (Non-Medical): No Physical Activity: Not on file Intimate Partner Violence: At Risk (02/27/2024) IPV Inpatient Questions Prevent Contact with Others: yes Feels Threatened by Someone: yes Feels Unsafe at Home: yes Physical Signs of Abuse Present: yes Housing Stability: Low Risk (02/26/2024) Housing Stability Vital Sign Unable to Pay for Housing in the Last Year: No Number of Times Moved in the Last Year: 0 Homeless in the Last Year: No Physical Exam: Last value Range last 24 hrs Temperature Temp: 36.8 ??C (98.2 ??F) Temp: [36.7 ??C (98 ??F)-37 ??C (98.6 ??F)] Heart Rate Heart Rate: 82 Heart Rate: [82-91] Blood Pressure BP: 114/57 BP: (114-136)/(57-76) Respiratory Rate Resp: 18 Resp: [17-18] SpO2 SpO2: 98 % SpO2: [94 %-98 %] Physical Exam General: 23 y.o. female sitting in bed comfortably, in no acute distress. HEENT: Normocephalic, atraumatic. Mucous membranes moist. Cardiovascular: Regular rate and rhythm. No murmurs. Peripheral pulses 2+. Respiratory: Clear to auscultation bilaterally. No increased work of breathing. Abdominal: Soft, non-tender, non-distended. Normoactive bowel sounds. Musculoskeletal: Full range of motion in upper and lower extremities bilaterally. No peripheral edema. Neurologic: Alert. Hearing intact to voice. Speech and language fluent. Normal muscle bulk and tone. Moving extremities spontaneously. Skin: No lesions or rash appreciated. Psychiatric: Responding appropriately. Thought content linear and logical. Mood is cheerful. I have reviewed the pertinent laboratory, microbiology, and diagnostic/radiology/procedure results: LABS Chemistry Recent Labs 02/26/24 0814 NA 138 K 4.1 CL 105 CO2 20* BUN 7* CREATININE 0.63* GLUCOSE 76 CALCIUM 8.7 A1C No results for input(s): HA1C in the last 7068 hours. GI Recent Labs 02/26/24 0814 BILITOT 0.2 ALBUMIN 2.9* ALKPHOS 117* ALT 14 AST 26 Lipid Panel Hematology Recent Labs 02/29/24 0536 02/28/24 0456 02/27/24 1408 WBC 14.33* 23.18* 29.48* HGB 8.4* 8.6* 9.1* PLATELET 303 289 293 Recent Labs 02/27/24 1408 NEUTROABS 24.01* Coags No results found for: INR, PT, PTT Lactate Recent Labs 02/27/24 1503 LACTATEVEN 2.0 CRP No results for input(s): CRP in the last 168 hours. ESR No results for input(s): SEDRATE in the last 168 hours. CK No results for input(s): CKMB in the last 168 hours. UA Component Value Date/Time SPGRAVITYUA 1.010 08/29/2017 1636 PHUADIP 7.0 08/29/2017 1636 PROTEINUADIP Negative 08/29/2017 1636 GLUCOSEU Negative 08/29/2017 1636 KETONESUA Negative 08/29/2017 1636 UROBILIUADIP 2.0 (A) 08/29/2017 1636 BLOODUADIP Moderate (A) 08/29/2017 1636 NITRATEUA Negative 08/29/2017 1636 LEUKOESTERUA Large (A) 08/29/2017 1636 BILIRUBINUA Negative 08/29/2017 1636 Microbiology: - 02/27/2024 blood cultures from [facility]: Group A strep 2/2 Microbiology Results (Last 30 days) No results found for the last 720 hours. Imaging/diagnostics: OSH CT AP 02/26: Significant enlargement of the uterus, most likely . No abnormal adnexalmasses. No free fluid in pelvis. IMPRESSION: Andrea Hagan is a 23 y.o. female with a history of bipolar disorder, anxiety, depression, vaping, obesity, gestational hypertension, hemorrhage, and gestational diabetes mellitus, who presented on post- day 2 after vaginal delivery for fever and suspected endometritis, subsequently found to have Group A Strep bacteremia. Ms. Hagan's bacteremia is likely related to endometritis . Her clinical improvement with antibiotics is reassuring. She will benefit from repeat blood cultures to ensure clearance. Group A Strep is reliably sensitive to penicillins; however, Ms. Hagan reports a history of amoxicillin allergy. It is reasonable to trial a test dose of ceftriaxone, as cephalosporins are less likely to have cross sensitivity to penicillin allergy. Pending repeat blood culture and clinical course, I anticipate that she will need at least 14 days of antibiotic treatment. RECOMMENDATIONS: - Request second read of OSH CT - Repeat blood culture x1 - Discontinue gentamicin and clindamycin - Trial dose of ceftriaxone through the test dose protocol - At this time, anticipate 14 day course of antibiotics Patient discussed with ID attending Dr. Angeline Mccray and ID Fellow Dr. Alyssia Powell. Thank you for the consult. ID consult service will continue to follow. Please page ID Green team (pager [phone]) with questions or concerns. Madison Blankenship MD Internal Medicine, PGY-2 Infectious Disease Green Team #[id number] [facility] 02/29/2024 11:29 AM Associated attestation - Angeline Mccray MD - 02/29/2024 4:48 PM EST ID Attending Attestation I have seen and examined the patient, reviewed the chart as well as the documentation as written byDr. Blankenship. The assessment and plan were formulated in discussion with me and I agree with them as documented, with the following additions/modifications: After a risk/benefit discussion, we have opted to proceed with a test dose of IV ceftriaxone, followed by a full dose if she tolerates this. This has the benefit of also covering pathogens other thangroup A Streptococcus that could be implicated in a polymicrobial infection like endometritis. Surveillance blood Cxs were collected earlier this morning, though suspect the likelihood of sustained bacteremia is low. We did consider resumption of IV clindamycin for its anti-toxin effect, but will hold off after assessing the patient given how stable she appears clinically. Anticipate that if she continues to improve, we will be able to transition to an oral agent soon to complete treatment for group A Streptococcal bacteremia, with a duration likely on the order of ~2 weeks. We will continue to follow. Angeline Mccray MD Staff Physician in Infectious Diseases * Initial Assessments - Kayla Puente MSW - 02/29/2024 9:06 AM EST Images from the original note were not included. [place] Psychosocial Assessment Note copied from delivery admission JACQUELINE Holloway reviewed record and discussed patient with Care Team. Source of Information: EDUCATION NURSE met with MOB at bedside to complete psychosocial assessment. Upon EDUCATION NURSE arrival, MOB was resting in bed and ANKUR, Shaq Santiago, was on couch holding infant. EDUCATION NURSE introduced self/reviewed role; services accepted. Child???s Name: Rogerio Santiago Reason for Hospitalization: Present on Admission: Encounter for induction of labor Patient receiving hospital care under Inpatient status. Past Medical History: Past Medical History Past Medical History: Diagnosis Date Anemia Fracture of distal femur Per Mom, fx of lower femur and upper (?) tibia, long leg case GDM (gestational diabetes mellitus) Gestational hypertension Obesity Hospitalizations Within the Past 30 Days: None Anticipated Length Of Stay (If known): Possible discharge today (02/25) Decision-Making Responsibility/Custody: MOB and FOB to retain custody and decision making responsibility of infant. DCF/DCYF involvement: MOB denied any past or current involvement with DCF or DCYF. Home Environment: MOB confirms that she lives at [address] [place] [id number] Household members: MOB reports that she resides at home with FOB and their three older children (two year old daughter, Dex, and 1 year old twins, Shaq Bradshaw & Susannah). MOB confirms that will reside in the home with them following hospital discharge. Family Supports: MOB states that they have good support from friends and family. Social Determinants of Health: Social & Community Resources: MOB denied use of any social or community resources at this time. Food: MOB denied any food concerns or insecurities. MOB confirms that they utilize WIC and Food [place]. Housing: MOB denied any housing concerns. MOB confirms that their home is safe and stable at this time. Transportation: MOB denied any transportation concerns. Financial: MOB denied any financial concerns. 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 FOB works full time babysitter. Car Seat: MOB confirms that they have a car seat and all other supplies for including a bassinet, clothes, diapers, wipes and bottles. MOB states that she has a breast pump at home. Childcare/School: MOB confirms that she stays home with the children. Other: [place]: WIC, Children w/ Special Health Needs, Children???s Integrated Services, Early Intervention: MOB denied needing assistance accessing additional resources. Current Medical Services in the home: VNA: MOB declined VNA services at this time. DME (including a breast pump): MOB explained that she is planning to breast feed and supplement with formula when needed. MOB explained that she has a breast pump at home. Behavioral Health History/Needs: MOB denied any mental health or emotional concerns at this time. MOB discussed that she has not experienced depression (PPD) and declined additional information on PPD at this time. Substance Use/Abuse: MOB denied any past or current substance use. Health/Prescription Coverage: Primary Insurance: MEDICAID [place] Secondary Insurance: N/A Primary Care Provider: None None MOB explained that she does not currently have a PCP. MOB declined needing assistance with obtaining a PCP for herself. MOB discussed that they plan to see Kayla Gonzalez for 's senior program analyst and she believes that the follow up appointment is already scheduled. Potential Needs/referrals for Transition of Care: There are no potential needs for discharge. Transportation at discharge: FOB states that he will provide DC transportation when necessary. Anticipated Barriers to Discharge/Special Considerations: There are not anticipated barriers to discharge at this time. Assessment: LYLE denied any additional questions or concerns for EDUCATION NURSE at this time. Plan: EDUCATION NURSE updated patient's care team and will continue to remain available for further patient andDC needs as they arise. A member of the Care Management team will continue to monitor progress, follow for continuity of care and assist with transition of care planning. JACQUELINE Valerio Pronouns: She/Her/Her's Pediatric Social Work [email or web address] cell: [phone] I Pager: [phone] [email or web address] * Plan of Care - Linda Palmer RN - 02/29/2024 6:14 AM EST OUTCOME EVALUATION NOTE: OUTCOME SUMMARY: VSS on RA. Assessment as filed, see doc flowsheets. Pt independent with care, ambulating and voiding independently without problems managing pain with scheduled medications. Attentive to needs. PLAN MOVING FORWARD: Continue to monitor. Plan to d/c pt to home INDIVIDUALIZED FALL PREVENTION INTERVENTIONS: Patient-specific fall risk factors per assessment: [current deficits]: NA Assistance [level of assistance required for transfers and ambulation]: Independent Supervision [direct monitoring required during toileting and ADLs]: NA Surveillance [continuous indirect monitoring]: VS and rounding per protocol Patient-specific fall prevention interventions for sensory deficits provided, if applicable: NA CPG GOAL OUTCOME EVALUATION: Problem: Adult Inpatient Plan of Care Goal: Plan of Care Review Outcome: Ongoing (Interventions Implemented as Appropriate) Goal: Patient-Specific Goal (Individualized) Outcome: Ongoing (Interventions Implemented as Appropriate) Goal: Absence of Hospital-Acquired Illness or Injury Outcome: Ongoing (Interventions Implemented as Appropriate) Goal: Optimal Comfort and Wellbeing Outcome: Ongoing (Interventions Implemented as Appropriate) Goal: Readiness for Transition of Care Outcome: Ongoing (Interventions Implemented as Appropriate) Problem: Goal: Effective Outcome: Ongoing (Interventions Implemented as Appropriate) Problem: Pain ( Vaginal Delivery) Goal: Acceptable Pain Control Outcome: Ongoing (Interventions Implemented as Appropriate) * Plan of Care - Linda Palmer RN - 02/28/2024 6:29 AM EST OUTCOME EVALUATION NOTE: OUTCOME SUMMARY: Pt continues to have soft BP's, maintenance fluids maintained at 100mL/hr. Assessment as filed, see doc flowsheets. IV Toradol managing pain well. IV Abx administered per orders. PLAN MOVING FORWARD: Continue to monitor. Support progress towards discharge. INDIVIDUALIZED FALL PREVENTION INTERVENTIONS: Patient-specific fall risk factors per assessment: [current deficits]: none Assistance [level of assistance required for transfers and ambulation]: Up ad genaro, independent. Supervision [direct monitoring required during toileting and ADLs]: none Surveillance [continuous indirect monitoring]: Purposeful rounding Patient-specific fall prevention interventions for sensory deficits provided, if applicable: No CPG GOAL OUTCOME EVALUATION: Problem: Adult Inpatient Plan of Care Goal: Plan of Care Review Outcome: Ongoing (Interventions Implemented as Appropriate) Goal: Patient-Specific Goal (Individualized) Outcome: Ongoing (Interventions Implemented as Appropriate) Goal: Absence of Hospital-Acquired Illness or Injury Outcome: Ongoing (Interventions Implemented as Appropriate) Goal: Optimal Comfort and Wellbeing Outcome: Ongoing (Interventions Implemented as Appropriate) Goal: Readiness for Transition of Care Outcome: Ongoing (Interventions Implemented as Appropriate) Problem: Goal: Effective Outcome: Ongoing (Interventions Implemented as Appropriate) Problem: Pain ( Vaginal Delivery) Goal: Acceptable Pain Control Outcome: Ongoing (Interventions Implemented as Appropriate) documented in this encounter Plan of Treatment Scheduled Orders Name Type Priority Associated Diagnoses Orde r Schedule Urinalysis with reflex Culture Lab Routine One Time for 1 Occurrences starting 02/27/2024 until 02/27/2024 documented as of this encounter Procedures Procedure Name Priority Date/Time Associated Diagnosis Comments HEMOGRAM STAT 03/01/2024 6:50 AM EST BLOOD CULTURE Routine 02/29/2024 1:17 PM EST HEMOGRAM Routine 02/29/2024 5:36 AM EST HEMOGRAM Routine 02/28/2024 4:56 AM EST LACTATE, WHOLE BLOOD STAT 02/27/2024 3:03 PM EST SCAN, PERIPHERAL BLOOD SHEN 02/27/2024 2:08 PM EST CBC (WITH DIFF) STAT 02/27/2024 2:08 PM EST documented in this encounter Results * (ABNORMAL) Hemogram (03/01/2024 6:50 AM EST) White Blood Cell 8.89 4.00 - 9.50 x10(3)/mc L 03/01/2024 7:03 AM EST [facility] Red Blood Cell 3.76(L) 4.00 - 5.21 x10(6)/mc L 03/01/2024 7:03 AM EST [facility] Hemoglobin 8.7(L) 11.7 - 15.5 g/dL 03/01/2024 7:03 AM [facility] Hematocrit 28.4(L) 35.7 - 45.8 % 03/01/2024 7:03 AM [facility] Mean Cell Volume 75.5(L) 82.6 - 94.4 fL 03/01/2024 7:03 AM [facility] Mean Cell Hemoglobin 23.1(L) 27.1 - 32.0 pg 03/01/2024 7:03 AM [facility] Mean Cell Hemoglobin Concentration 30.6(L) 31.7 - 35.0 g/dL 03/01/2024 7:03 AM [facility] Platelet 329 145 - 357 x10(3)/mc L 03/01/2024 7:03 AM [facility] Mean Platelet Volume 10.7 7.6 - 12.9 fL 03/01/2024 7:03 AM [facility] RDW Standard Deviation 47.2(H) 37.0 - 46.0 fL 03/01/2024 7:03 AM [facility] RDW coefficient of variation 18.4(H) 11.5 - 14.1 % 03/01/2024 7:03 AM [facility] NRBC% auto 0.0 % 03/01/2024 7:03 AM [facility] NRBC Absolute <0.01 <0.01 x10(3)/mc L 03/01/2024 7:03 AM [facility] Blood VENOUS BLOOD SPECIMEN / Unknown Venipuncture / Unknown 03/01/2024 6:50 AM EST 03/01/2024 6:56 AM EST Ros Earl MD HEMATOLOGY ORDERAB LES [facility] [place] [address] * Blood culture (02/29/2024 1:17 PM EST) Blood Culture No growth at 120 hours 03/05/2024 4:01 PM EST [facility] Blood VENOUS BLOOD SPECIMEN / Unknown Venipuncture / Unknown 02/29/2024 1:17 PM EST 02/29/2024 2:48 PM EST Kandis H Tavia M MICROBIOLOGY - B LOOD ORDERABLES [facility] [place] [address] * (ABNORMAL) Hemogram (02/29/2024 5:36 AM EST) White Blood Cell 14.33(H) 4.00 - 9.50 x10(3)/mc L 02/29/2024 5:49 AM [facility] Red Blood Cell 3.61(L) 4.00 - 5.21 x10(6)/mc L 02/29/2024 5:49 AM [facility] Hemoglobin 8.4(L) 11.7 - 15.5 g/dL 02/29/2024 5:49 AM [facility] Hematocrit 27.3(L) 35.7 - 45.8 % 02/29/2024 5:49 AM [facility] Mean Cell Volume 75.6(L) 82.6 - 94.4 fL 02/29/2024 5:49 AM [facility] Mean Cell Hemoglobin 23.3(L) 27.1 - 32.0 pg 02/29/2024 5:49 AM [facility] Mean Cell Hemoglobin Concentration 30.8(L) 31.7 - 35.0 g/dL 02/29/2024 5:49 AM [facility] Platelet 303 145 - 357 x10(3)/mc L 02/29/2024 5:49 AM [facility] Mean Platelet Volume 10.7 7.6 - 12.9 fL 02/29/2024 5:49 AM [facility] RDW Standard Deviation 46.2(H) 37.0 - 46.0 fL 02/29/2024 5:49 AM [facility] RDW coefficient of variation 18.0(H) 11.5 - 14.1 % 02/29/2024 5:49 AM [facility] NRBC% auto 0.0 % 02/29/2024 5:49 AM [facility] NRBC Absolute <0.01 <0.01 x10(3)/mc L 02/29/2024 5:49 AM [facility] Blood VENOUS BLOOD SPECIMEN / Unknown Venipuncture / Unknown 02/29/2024 5:36 AM EST 02/29/2024 5:45 AM EST Ros Earl MD HEMATOLOGY ORDERAB LES [facility] [place] [address] * (ABNORMAL) Hemogram (02/28/2024 4:56 AM EST) White Blood Cell 23.18(H) 4.00 - 9.50 x10(3)/mc L 02/28/2024 5:08 AM [facility] Red Blood Cell 3.64(L) 4.00 - 5.21 x10(6)/mc L 02/28/2024 5:08 AM [facility] Hemoglobin 8.6(L) 11.7 - 15.5 g/dL 02/28/2024 5:08 AM [facility] Hematocrit 27.6(L) 35.7 - 45.8 % 02/28/2024 5:08 AM [facility] Mean Cell Volume 75.8(L) 82.6 - 94.4 fL 02/28/2024 5:08 AM [facility] Mean Cell Hemoglobin 23.6(L) 27.1 - 32.0 pg 02/28/2024 5:08 AM [facility] Mean Cell Hemoglobin Concentration 31.2(L) 31.7 - 35.0 g/dL 02/28/2024 5:08 AM [facility] Platelet 289 145 - 357 x10(3)/mc L 02/28/2024 5:08 AM [facility] Mean Platelet Volume 10.5 7.6 - 12.9 fL 02/28/2024 5:08 AM EST [facility] RDW Standard Deviation 46.2(H) 37.0 - 46.0 fL 02/28/2024 5:08 AM [facility] RDW coefficient of variation 17.4(H) 11.5 - 14.1 % 02/28/2024 5:08 AM [facility] NRBC% auto 0.0 % 02/28/2024 5:08 AM [facility] NRBC Absolute <0.01 <0.01 x10(3)/mc L 02/28/2024 5:08 AM [facility] Blood VENOUS BLOOD SPECIMEN / Unknown Venipuncture / Unknown 02/28/2024 4:56 AM EST 02/28/2024 5:04 AM EST Ros Earl MD HEMATOLOGY ORDERAB LES [facility] [place] [address] * Lactate, Whole Blood (02/27/2024 3:03 PM EST) [facility] Lactate, Whole Blood 2.0 0.5 - 2.2 mmol/L 02/27/2024 3:23 PM EST [facility] Blood VENOUS BLOOD SPECIMEN / Unknown Venipuncture / Unknown 02/27/2024 3:03 PM EST 02/27/2024 3:20 PM EST Ros Earl MD CHEMISTRY ORDERABL ES [facility] [place] [address] * (ABNORMAL) Scan, Peripheral Blood (02/27/2024 2:08 PM EST) [facility] RBC Morphology Abnormal 02/27/2024 3:08 PM EST [facility] Platelet Estimate Normal Normal 02/27/2024 3:08 PM EST [facility] Microcyte 6-10 /HPF 02/27/2024 3:08 PM [facility] Ovalocytes 1-5 /HPF 02/27/2024 3:08 PM [facility] Platelet Clumps Present(A) (none) 02/27/2024 3:08 PM [facility] Blood VENOUS BLOOD SPECIMEN / Unknown Venipuncture / Unknown 02/27/2024 2:08 PM EST 02/27/2024 2:24 PM EST Ros Earl MD HEMATOLOGY ORDERAB LES [facility] [place] [address] * (ABNORMAL) CBC (with Diff) (02/27/2024 2:08 PM EST) White Blood Cell 29.48(H) 4.00 - 9.50 x10(3)/mc L 02/27/2024 3:08 PM [facility] Red Blood Cell 3.92(L) 4.00 - 5.21 x10(6)/mc L 02/27/2024 3:08 PM [facility] Hemoglobin 9.1(L) 11.7 - 15.5 g/dL 02/27/2024 3:08 PM [facility] Hematocrit 28.9(L) 35.7 - 45.8 % 02/27/2024 3:08 PM [facility] Mean Cell Volume 73.7(L) 82.6 - 94.4 fL 02/27/2024 3:08 PM [facility] Mean Cell Hemoglobin 23.2(L) 27.1 - 32.0 pg 02/27/2024 3:08 PM [facility] Mean Cell Hemoglobin Concentration 31.5(L) 31.7 - 35.0 g/dL 02/27/2024 3:08 PM [facility] Platelet 293 145 - 357 x10(3)/mc L 02/27/2024 3:08 PM [facility] Mean Platelet Volume 10.4 7.6 - 12.9 fL 02/27/2024 3:08 PM [facility] RDW Standard Deviation 44.6 37.0 - 46.0 fL 02/27/2024 3:08 PM [facility] RDW coefficient of variation 17.0(H) 11.5 - 14.1 % 02/27/2024 3:08 PM [facility] NRBC% auto 0.0 % 02/27/2024 3:08 PM [facility] NRBC Absolute <0.01 <0.01 x10(3)/mc L 02/27/2024 3:08 PM [facility] Neutrophil % 81.4 % 02/27/2024 3:08 PM [facility] Comment:This is an appended report. These results have been appended to a previously preliminary verified report. Neutrophil Absolute (ANC) - Automated 24.01(H) 1.70 - 6.10 x10(3)/mc L 02/27/2024 3:08 PM [facility] Comment:This is an appended report. These results have been appended to a previously preliminary verified report. Lymph % 7.0 % 02/27/2024 3:08 PM [facility] Comment:This is an appended report. These results have been appended to a previously preliminary verified report. Lymph Absolute 2.05 0.90 - 3.20 x10(3)/mc L 02/27/2024 3:08 PM [facility] Comment:This is an appended report. These results have been appended to a previously preliminary verified report. Monocyte % 5.4 % 02/27/2024 3:08 PM [facility] Comment:This is an appended report. These results have been appended to a previously preliminary verified report. Monocyte Absolute 1.59(H) 0.30 - 0.90 x10(3)/mc L 02/27/2024 3:08 PM [facility] Comment:This is an appended report. These results have been appended to a previously preliminary verified report. Eos % 0.2 % 02/27/2024 3:08 PM EST [facility] Comment:This is an appended report. These results have been appended to a previously preliminary verified report. Eos Absolute 0.06 0.00 - 0.40 x10(3)/mc L 02/27/2024 3:08 PM EST [facility] Comment:This is an appended report. These results have been appended to a previously preliminary verified report. Basophil % 0.3 % 02/27/2024 3:08 PM EST [facility] Comment:This is an appended report. These results have been appended to a previously preliminary verified report. Baso Absolute 0.08 0.00 - 0.10 x10(3)/mc L 02/27/2024 3:08 PM EST [facility] Comment:This is an appended report. These results have been appended to a previously preliminary verified report. Immature Gran % 5.7 % 3:08 PM EST [facility] Comment:This is an appended report. These results have been appended to a previously preliminary verified report. Immature Gran Absolute 1.69(H) 0.00 - 0.04 x10(3)/mc L 02/27/2024 3:08 PM EST [facility] Comment:This is an appended report. These results have been appended to a previously preliminary verified report. Blood VENOUS BLOOD SPECIMEN / Unknown Venipuncture / Unknown 02/27/2024 2:08 PM EST 02/27/2024 2:24 PM EST Ros Earl MD HEMATOLOGY ORDERAB LES [facility] [place] [address] documented in this encounter Visit Diagnoses Diagnosis fever- Primary Puerperal pyrexia of unknown origin, unspecified as to episode of care documented in this encounter Admitting Diagnoses Diagnosis fever Puerperal pyrexia of unknown origin, unspecified as to episode of care documented in this encounter Administered Medications Inactive Administered Medications - up to 3 most recent administrations Medication Order MAR Action Action Date Dose Rate Site acetaminophen (Tylenol) tablet 975 mg 975 mg, Oral, EVERY 6 HOURS PRN, Starting on Mon02/27/24 at 1500, Until Mon03/02/24 at 1320, Pain, Maximum dose of acetaminophen is 4,000 mg from all sources in 24 hours. Both acetaminophen and ibuprofen, if ordered, should be given even when other ordered pain medications are indicated. If both ordered, give ibuprofen first unless patient requests acetaminophen first., Routine Given 02/29/2024 1:54 PM EST 975 mg Given 02/29/2024 5:37 AM EST 975 mg Given 02/28/2024 8:36 PM EST 975 mg cefTRIAXone (Rocephin) 2 g vial attach to sodium chloride 0.9% 50 mL Mini-Bag Plus 1,800 mg, Intravenous, ONCE, 1 dose, On Emma 02/29/24 at 1630, Administer over 30 Minutes, Infuse the remainder of the bag over 30 minutes and monitor the patient for 1 hour once infusion is complete. Use Primary Line., Indication for (Active or Suspected): Other (See comment) / Test Dose New Bag 02/29/2024 5:33 PM EST 1,800 mg 100 mL/hr cefTRIAXone (Rocephin) 2 g vial attach to sodium chloride 0.9% 50 mL Mini-Bag Plus 2 g, Intravenous, EVERY 24 HOURS, First dose on Mon03/01/24 at 1600, Until Discontinued, Administer over 30 Minutes, Indication for (Active or Suspected): Other (See comment) / Endometritis New Bag 03/01/2024 4:03 PM EST 2 g 100 mL/hr cefTRIAXone (Rocephin) bolus from bag 200 mg 200 mg, Intravenous, Administer over 3 Minutes, ONCE, 1 dose, On Emma 02/29/24 at 1600, Administer over 3 minutes and monitor patient for 30 minutes. Use Primary Line., Routine, Indication for (Active or Suspected): Other (See comment) / Test Dose Bolus from Bag 02/29/2024 5:04 PM EST 200 mg cephALEXin (Keflex) capsule 1,000 mg 1,000 mg, Oral, 4 TIMES DAILY, 44 doses, First dose on Mon03/02/24 at 1000, Last dose on Mon03/12/24 at 2100, Routine, Indication for (Active or Suspected): Other (See comment) / endometris Given 03/02/2024 10:00 AM EST 1,000 mg clindamycin (Cleocin) 900 mg in dextrose 5% 50 mL infusion 900 mg, Intravenous, EVERY 8 HOURS, 6 doses, First dose on Mon02/27/24 at 1600, Last dose on Mon02/29/24 at 0800, Administer over 30 Minutes, Indication for (Active or Suspected): Other (See comment) / suspected endometritis New 02/29/2024 8:28 AM EST 900 mg 100 mL/hr 02/29/2024 12:07 AM EST 900 mg 100 mL/hr 02/28/2024 4:23 PM EST 900 mg 100 mL/hr diphenhydrAMINE (Benadryl) (50 mg/mL) injection 50 mg 50 mg, Intravenous, EVERY 2 HOURS PRN, Starting on Mon02/29/24 at 1536, Until 03/02/24 at 1320, Itching, hives and itching, Notify service if given. May give up to 400 mg per day, Routine EPINEPHrine (Adrenalin) injection kit for anaphylaxis 0.3 mg 0.3 mg, Intramuscular, EVERY 5 MIN PRN, 1 dose, Starting on Mon02/29/24 at 1536, Until 03/02/24 at 1320, Anaphylaxis, anaphylactic reaction, Notify service if given. Warning Vesicant/Irritant Medication , Routine gentamicin (Garamycin) 220 mg in sodium chloride 0.9% 105.5 mL infusion 220 mg, Intravenous, ONCE, 1 dose, On Mon02/27/24 at 1530, Administer over 60 Minutes, This medication may have an associated drug lab level. Please check for lab orders. Warning Vesicant/Irritant Medication , Indication for (Active or Suspected): Other (see comments) / suspected endometritis 02/27/2024 4:21 PM EST 220 mg 105.5 mL/hr gentamicin (Garamycin) 410 mg in sodium chloride 0.9% 110.25 mL infusion 410 mg, Intravenous, EVERY 24 HOURS, First dose on Mon02/28/24 at 0800, Until Discontinued, Administer over 60 Minutes, This medication may have an associated drug lab level. Please check for lab orders. Warning Vesicant/Irritant Medication , Indication for (Active or Suspected): Other (see comments) / suspected endometritis New Bag 02/28/2024 8:55 AM EST 410 mg 110.3 mL/hr gentamicin (Garamycin) 410 mg in sodium chloride 0.9% 110.25 mL infusion 410 mg, Intravenous, EVERY 24 HOURS, 1 dose, First dose (after last modification) on Emma 02/29/24 at 0800, Administer over 60 Minutes, This medication may have an associated drug lab level. Please check for lab orders. Warning Vesicant/Irritant Medication , Indication for (Active or Suspected): Other (see comments) / suspected endometritis New Bag 02/29/2024 9:57 AM EST 410 mg 110.3 mL/hr ibuprofen (Advil) tablet 600 mg 600 mg, Oral, EVERY 6 HOURS PRN, Starting on Mon02/27/24 at 1346, Until Mon02/27/24 at 2033, Pain, Administer orally with milk or food to minimize GI irritation. Maximum dose of 3,200 mg from all sources in 24 hours Both acetaminophen and ibuprofen, if ordered, should be given even when other ordered pain medications are indicated. If both ordered, give ibuprofen first unless patient requests acetaminophen first. Do not administer with ketorolac, if ordered., Routine Given 02/27/2024 4:54 PM EST 600 mg ibuprofen (Advil) tablet 600 mg 600 mg, Oral, EVERY 6 HOURS PRN, Starting on Emma 02/29/24 at 1200, Until 03/02/24 at 1320, Pain, Administer orally with milk or food to minimize GI irritation. Maximum dose of 3,200 mg from all sources in 24 hours, Routine Given 02/29/2024 1:54 PM EST 600 mg ketorolac (Toradol) (15 mg/mL) injection 15 mg 15 mg, Intravenous, EVERY 6 HOURS, 20 doses, First dose on Mon02/27/24 at 2300, Last dose on Mon03/03/24 at 1700, Routine Given 02/29/2024 5:37 AM EST 15 mg Given 02/29/2024 12:04 AM EST 15 mg Given 02/28/2024 5:04 PM EST 15 mg lactated Ringers 1,000 mL IV bolus Intravenous, ONCE, 1 dose, On Mon02/27/24 at 1500 New Bag 02/27/2024 3:00 PM EST lactated Ringers 1,000 mL IV bolus Intravenous, ONCE, 1 dose, On Mon02/27/24 at 1700 New Bag 02/27/2024 3:00 PM EST lactated ringers infusion 100 mL/hr, Intravenous, CONTINUOUS, Starting on Mon02/27/24 at 1645, Until Mon02/28/24 at 1031 New 02/28/2024 8:13 AM EST 100 mL/hr 100 mL/hr New 02/27/2024 6:46 PM EST 100 mL/hr 100 mL/hr New 02/27/2024 4:58 PM EST 100 mL/hr 100 mL/hr ondansetron (pf) (Zofran) (2 mg/mL) injection 4 mg 4 mg, Intravenous, EVERY 8 HOURS PRN, Starting on Emma 02/29/24 at 2036, Until 03/02/24 at 1320, Nausea Given 02/29/2024 8:50 PM EST 4 mg oxyCODONE (Roxicodone) tablet 5 mg 5 mg, Oral, EVERY 4 HOURS PRN, Starting on Mon02/27/24 at 2032, Until 03/02/24 at 1320, Pain, Routine polyethylene glycoL (Miralax) packet 17 g 17 g, Oral, DAILY, First dose on Mon02/28/24 at 2315, Until Discontinued, Routine senna-docusate (Pericolace) 8.6-50 mg per tablet 1 tablet 1 tablet, Oral, DAILY, First dose on Mon02/28/24 at 2315, Until Discontinued, Routine Given 02/29/2024 1:54 PM EST 1 tablet documented in this encounter Active and Recently Administered Medications Times are shown in EST. Scheduled Medication Order 02/29/2024 03/01/2024 03/02/2024 cefTRIAXone (Rocephin) 2 g vial attach to sodium chloride 0.9% 50 mL Mini-Bag Plus (COMPLETED)(Linked Group 1) 1,800 mg, Intravenous, ONCE, 1 dose, On Emma 02/29/24 at 1630, Administer over 30 Minutes, Infuse the remainder of the bag over 30 minutes and monitor the patient for 1 hour once infusion is complete. Use Primary Line., Indication for (Active or Suspected): Other (See comment) / Test Dose 1733 (New Bag - Provider: Cathi Mejia RN)1803 (Due: Stopped - Provider: Cathi Mejia RN) cefTRIAXone (Rocephin) 2 g vial attach to sodium chloride 0.9% 50 mL Mini-Bag Plus (CANCELED) 2 g, Intravenous, EVERY 24 HOURS, First dose on Mon03/01/24 at 1600, Until Discontinued, Administer over 30 Minutes, Indication for (Active or Suspected): Other (See comment) / Endometritis 1603 (New Bag - Provider: Agnes Owens, YOLY)1633 (Stopped - Provider: Agnes Owens RN) cefTRIAXone (Rocephin) bolus from bag 200 mg (COMPLETED)(Linked Group 1) 200 mg, Intravenous, Administer over 3 Minutes, ONCE, 1 dose, On Emma 02/29/24 at 1600, Administer over 3 minutes and monitor patient for 30 minutes. Use Primary Line., Routine, Indication for (Active or Suspected): Other (See comment) / Test Dose 1704 (Bolus from Bag - Provider: Cathi Mejia RN) cephALEXin (Keflex) capsule 1,000 mg 1,000 mg, Oral, 4 TIMES DAILY, 44 doses, First dose on Mon03/02/24 at 1000, Last dose on Mon03/12/24 at 2100, Routine, Indication for (Active or Suspected): Other (See comment) / endometris 1000 (Given - Provider: Zoey Frances RN) clindamycin (Cleocin) 900 mg in dextrose 5% 50 mL infusion (COMPLETED) 900 mg, Intravenous, EVERY 8 HOURS, 6 doses, First dose on Mon02/27/24 at 1600, Last dose on Mon02/29/24 at 0800, Administer over 30 Minutes, Indication for (Active or Suspected): Other (See comment) / suspected endometritis 0007 (New Bag - Provider: Linda Palmer RN)0037 (Stopped - Provider: Linda Palmer RN)0828 (New Bag - Provider: Cathi Mejia RN)0858 (Stopped - Provider: Savanah Mullen RN) gentamicin (Garamycin) 410 mg in sodium chloride 0.9% 110.25 mL infusion (COMPLETED)(Linked Group 2) 410 mg, Intravenous, EVERY 24 HOURS, 1 dose, First dose (after last modification) on Emma 02/29/24 at 0800, Administer over 60 Minutes, This medication may have an associated drug lab level. Please check for lab orders. Warning Vesicant/Irritant Medication , Indication for (Active or Suspected): Other (see comments) / suspected endometritis 0957 (New Bag - Provider: Savanah Mullen, YOLY)1057 (Stopped - Provider: Cathi Mejia RN) ketorolac (Toradol) (15 mg/mL) injection 15 mg (CANCELED) 15 mg, Intravenous, EVERY 6 HOURS, 20 doses, First dose on Mon02/27/24 at 2300, Last dose on Mon03/03/24 at 1700, Routine 0004 (Given - Provider: Linda Palmer RN)0537 (Given - Provider: Miri Jack RN) polyethylene glycoL (Miralax) packet 17 g 17 g, Oral, DAILY, First dose on Mon02/28/24 at 2315, Until Discontinued, Routine 0900 (Not Given - Provider: Agnes Owens RN - Reason: Patient/family refused) 0900 (Due) senna-docusate (Pericolace) 8.6-50 mg per tablet 1 tablet 1 tablet, Oral, DAILY, First dose on Mon02/28/24 at 2315, Until Discontinued, Routine 1354 (Given - Provider: Cathi Mejia RN) 0900 (Not Given - Provider: Agnes Owens RN - Reason: Patient/family refused) 0900 (Due) PRN Medication Order 02/29/2024 03/01/2024 03/02/2024 acetaminophen (Tylenol) tablet 975 mg 975 mg, Oral, EVERY 6 HOURS PRN, Starting on Mon02/27/24 at 1500, Until 03/02/24 at 1320, Pain, Maximum dose of acetaminophen is 4,000 mg from all sources in 24 hours. Both acetaminophen and ibuprofen, if ordered, should be given even when other ordered pain medications are indicated. If both ordered, give ibuprofen first unless patient requests acetaminophen first., Routine 0537 (Given - Provider: Miri Jack RN)1354 (Given - Provider: Cathi Mejia RN) diphenhydrAMINE (Benadryl) (50 mg/mL) injection 50 mg 50 mg, Intravenous, EVERY 2 HOURS PRN, Starting on Emma 02/29/24 at 1536, Until 03/02/24 at 1320, Itching, hives and itching, Notify service if given. May give up to 400 mg per day, Routine EPINEPHrine (Adrenalin) injection kit for anaphylaxis 0.3 mg 0.3 mg, Intramuscular, EVERY 5 MIN PRN, 1 dose, Starting on Emma 02/29/24 at 1536, Until 03/02/24 at 1320, Anaphylaxis, anaphylactic reaction, Notify service if given. Warning Vesicant/Irritant Medication , Routine glycerin-witch Simeon (Tucks) 12.5-50 % pads Topical (Top), 4 TIMES DAILY PRN, Irritation, perineal pain, Starting on 02/27/24 at 1346, Until 03/02/24 at 1320 ibuprofen (Advil) tablet 600 mg 600 mg, Oral, EVERY 6 HOURS PRN, Starting on Emma 02/29/24 at 1200, Until 03/02/24 at 1320, Pain, Administer orally with milk or food to minimize GI irritation. Maximum dose of 3,200 mg from all sources in 24 hours, Routine 1354 (Given - Provider: Cathi Mejia RN) ondansetron (pf) (Zofran) (2 mg/mL) injection 4 mg 4 mg, Intravenous, EVERY 8 HOURS PRN, Starting on Emma 02/29/24 at 2036, Until 03/02/24 at 1320, Nausea 2049 (Given - Provider: Destiny Ch RN) oxyCODONE (Roxicodone) tablet 5 mg 5 mg, Oral, EVERY 4 HOURS PRN, Starting on 02/27/24 at 2032, Until 03/02/24 at 1320, Pain, Routine Linked Groups Order Group 1: cefTRIAXone (Rocephin) bolus from bag 200 mg (COMPLETED)Jump to med 200 mg, Intravenous, Administer over 3 Minutes, ONCE, 1 dose, On Emma 24 at 1600, Administer over 3 minutes and monitor patient for 30 minutes. Use Primary Line., Routine, Indication for (Active or Suspected): Other (See comment) / Test Dose Followed by cefTRIAXone (Rocephin) 2 g vial attach to sodium chloride 0.9% 50 mL Mini-Bag Plus (COMPLETED)Jump to med 1,800 mg, Intravenous, ONCE, 1 dose, On Emma 24 at 1630, Administer over 30 Minutes, Infuse the remainder of the bag over 30 minutes and monitor the patient for 1 hour once infusion is complete. Use Primary Line., Indication for (Active or Suspected): Other (See comment) / Test Dose Group 2: gentamicin (Garamycin) 410 mg in sodium chloride 0.9% 110.25 mL infusion (COMPLETED)Jump to med 410 mg, Intravenous, EVERY 24 HOURS, 1 dose, First dose (after last modification) on Emma 24 at 0800, Administer over 60 Minutes, This medication may have an associated drug lab level. Please check for lab orders. Warning Vesicant/Irritant Medication , Indication for (Active or Suspected): Other (see comments) / suspected endometritis And Gentamicin level, random (CANCELED) New collection, Timed, PRN, Starting on Emma 02/29/24 at 0650, Until Specified, For 1 occurrence, Specimen Sources - Blood, Venous; And Gentamicin Level - MAR Order Reminder (CANCELED) NOT APPLICABLE, PER PHARMACY, Other, Starting on Emma 02/29/24 at 0650, Until Emma 02/29/24 at 1536, This alert will be scheduled by a pharmacist after order placement. This order is a reminder to nursing staff to release and draw the PRN drug level at the specified time. It may be necessary to contact phlebotomy 60 minutes prior to the scheduled due time to assure a timely blood draw. documented in this encounter Care Teams Ep Tech Relationship Specialty Start Date End Date None None PCP - General 12/22/23 documented as of this encounter
--- OUTSIDE RECORDS SUMMARY | 2024-05-05 10:43 | XMS_ITS | Encounter Summary ---
Author Organization Formerly [facility] Address [facility] [place] [address] Care Team Providers Care Business Integration Manager Name Role Phone None Primary Care Provider Unavailabl e Reason for Visit * Consultation (Urgent) - Closed Specialty Diagnoses / Procedures Referred By Jack sherman Referred To Contact Obstetrics and Gynecology Diagnoses Morbid (severe) obesity due to excess calories Supervision of other high risk pregnancies, unspecified trimester History of uterine scar from previous surgery detail morph SHEN Procedures US Requested Winsome Pugh MD [address] [place] [address] [place] [address] [facility] [employer] [facility] [address] [place] [address] Referral ID Status Reason Start Date Expiration Date V isits Requested Visits Authorized [id number] Closed Consult, Test & Treat PCP Updated and/or Approved 12/08/2023 06/06/2024 6 6 Encounter Details Date Type Department Care Team (Late Contact Info) Description 12/22/2023 4:00 PM EDT Office Visit Obstetrics [place] [address] Ros Earl MD [facility] [address] OBSTETRICS [place] [address] BMI 45.0-49.9, adult; History of delivery Social History Tobacco Use Types Packs/Day Years Used Date Smoking Tobacco: Every Day Cigarettes Smokeless Tobacco: Current Tobacco Cessation:Ready to Q uit: Not Asked; Counseling Given: Not Answered Comments:vapes Alcohol Use Standard Drinks/Week Comments No 0 (1 standard drink = 0.6 oz pur e alcohol) Comments Yes Sex and Gender Information Value Date Recorded Sex Assigned at Not on file Gender Identity Not on file Sexual Orientation Not on file documented as of this encounter Last Filed Vital Signs Vital Sign Reading Time Taken Comments Blood Pressure 126/62 12/22/2023 4:35 PM EDT Pulse - - Temperature - - Respiratory Rate - - Oxygen Saturation - - Inhaled Oxygen Concentration - - Weight 124.9 kg (275 lb 4.8 oz) 12/22/2023 4:35 PM EDT Height - - Body Mass Index 50.35 01/17/2020 8:20 AM EDT documented in this encounter Progress Notes * Ros Earl MD - 12/22/2023 4:00 PM EDT Diagnosis/Maternal Medicine Consult Note Andrea Martinez is a 23 y.o. year old female who is at 29w5d gestation. She is seen in consultation at the request of Winsome Pugh MD for evaluation of TOLAC. She was seen today for maternal- medicine consultation and ultrasound evaluation. 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, medial imbrication, lateral release (02/10/14) 02/10/2014 Knee pain, right 01/12/2012 R knee arthroscopy, microfracture & medial patellar realignment procedure 02/12 [place] 09/20/2011 Effusion of knee joint 08/16/2010 Effusion of knee joint, left 07/14/2010 Past Medical History: Diagnosis Date Anemia Fracture of distal femur Per Mom, fx of lower femur and upper (?) tibia, long leg case GDM (gestational diabetes mellitus) Gestational hypertension Obesity Past Surgical History: Procedure Laterality Date SECTION PRO APPLICATION LONG LEG CAST THIGH-TOE 08/31/2010 CAST APPLICATION, LONG LEG (THIGH TO TOES) performed by BRENDAN NAVARRO at [facility] [place] MAIN OR PRO APPLICATION LONG LEG CAST THIGH-TOE 12/16/2010 CAST APPLICATION, LONG LEG (THIGH TO TOES) performed by JENNIFER ZHANG at [facility] [place] MAIN OR PRO ARTHROSCOPY KNEE REMOVAL LOOSE/FOREIGN BODY 12/16/2010 ARTHROSCOPY KNEE REMOVE LOOSE BODY performed by JENNIFER ZHANG at [facility] [place] MAIN OR PRO ARTHROSCOPY KNEE REMOVAL LOOSE/FOREIGN BODY 02/13/2012 ARTHROSCOPY KNEE REMOVE LOOSE BODY performed by JENNIFER ZHANG at [facility] [place] MAIN OR PRO ARTHROSCOPY KNEE REMOVAL LOOSE/FOREIGN BODY Right 02/10/2014 ARTHROSCOPY KNEE REMOVE LOOSE BODY performed by Jennifer Zhang MD at [facility] OR PRO ARTHROTOMY/EXPLORE/TREAT KNEE JOINT 02/13/2012 ARTHROTOMY, KNEE WITH EXPLORATION performed by JENNIFER ZHANG at [facility] OR PRO DRAIN/INJECT LARGE JOINT/BURSA 04/05/2011 ARTHROCENTESIS, ASPIRATION OR INJECTION, MAJOR JOINT OR BURSA, KNEE performed by JENNIFER ZHANG at [facility] OR PRO KNEE SCOPE, ABRASN ARTHROPLASTY 12/16/2010 ARTHROSCOPY KNEE, MULTIPLE DRILLING, MICROFRACTURE performed by JENNIFER ZHANG at [facility] [place] MAIN OR PRO KNEE SCOPE, ABRASN ARTHROPLASTY 02/13/2012 ARTHROSCOPY KNEE, MULTIPLE DRILLING, MICROFRACTURE performed by JENNIFER ZHANG at [facility] [place] MAIN OR PRO KNEE SCOPE, DIAGNOSTIC 08/31/2010 ARTHROSCOPY KNEE, DIAGNOSTIC performed by BRENDAN NAVARRO at [facility] OR PRO KNEE SCOPE, DIAGNOSTIC Left 09/08/2014 ARTHROSCOPY KNEE, DIAGNOSTIC performed by Jennifer Zhang MD at [facility] OR [facility] KNEE SCOPE, DRILL OSTE DISS+INT FIX 08/31/2010 ARTHROSCOPY KNEE, DRILLING & FIXATION OF OCD performed by BRENDAN NAVARRO at [facility] [place] MAIN OR PRO KNEE SCOPE, PART SYNOVECT 04/05/2011 ARTHROSCOPY KNEE SYNOVECTOMY LIMITED performed by JENNIFER ZHANG at [facility] OR [facility] KNEE SCOPE, SHAVE ARTICULAR CART 08/31/2010 ARTHROSCOPY KNEE CHONDROPLASTY performed by BRENDAN NAVARRO at [facility] [place] MAIN OR PRO OSTEOTOMY TIBIA Right 02/10/2014 OSTEOTOMY, TIBIA performed by Jennifer Zhang MD at [facility] OR PRO OSTEOTOMY TIBIA Left 09/08/2014 OSTEOTOMY, TIBIA performed by Jennifer Zhang MD at [facility] [place] MAIN OR PRO RECONSTRUCTION DISLOC PATELLA W/EXTENSOR REALIGN &/OR MUSCLE REL 12/16/2010 PATELLAR REALIGNMENT performed by BRENDAN NAVARRO at [facility] [place] MAIN OR PRO RECONSTRUCTION DISLOCATING PATELLA 02/13/2012 REPAIR DISLOCATING PATELLA performed by JENNIFER ZHANG at [facility] [place] MAIN OR PRO RECONSTRUCTION DISLOCATING PATELLA Right 02/10/2014 REPAIR DISLOCATING PATELLA performed by Jennifer Zhang MD at [facility] [place] MAIN OR TONSILLECTOMY AND ADENOIDECTOMY Family History Problem Relation Age of Onset [...] activity: Yes control/protection: Other-see comments Comment: N/a OB History 4 Para 2 Term 2 AB 1 Living 3 SAB 1 IAB Ectopic Multiple 1 Live Births 3 # Outc Date GA Lbr Christiano/2nd Wgt Sex Type Anes PTL Lv 1 2017 2 Term 2021 39w0d 3.175 kg (7 lb) F Vag-Spont Living Complications: hemorrhage Comments: IV iron infusions 3A Term 2022 37w0d 2.495 kg (5 lb 8 oz) M C-S scar Living Complications: Malpresentation of fetus 3B Term 2022 37w0d 3.062 kg (6 lb 12 oz) F C-S scar Living Complications: Malpresentation of fetus, Gestational diabetes, Hypertension affecting 4 Current Current Outpatient Medications Medication Sig Dispense Refill cephALEXin (Keflex) 500 mg Capsule TAKE ONE CAPSULE BY MOUTH FOUR TIMES A DAY sertraline (ZOLOFT) 100 mg Tablet Take 2 tablets by mouth daily. (Patient not taking: Reported on 08/01/2018) 90 tablet 3 methylphenidate HCl (CONCERTA) 27 mg Tablet Extended Rel 24 hr Take 1 tablet by mouth every morning. (Patient not taking: Reported on 08/01/2018) 90 tablet 0 naproxen (EC NAPROSYN) 500 mg Tablet, Delayed Release (E.C.) Take 1 tablet by mouth 2 times daily (with meals). (Patient not taking: Reported on 08/01/2018) 60 tablet 3 predniSONE (DELTASONE) 5 mg Tablet Take 2 tablets by mouth daily. (Patient not taking: Reported on 12/01/2017) 60 tablet 3 traZODone (DESYREL) 50 mg Tablet Take 50 mg by mouth nightly. meloxicam (MOBIC) 15 mg Tablet Take 1 tablet by mouth daily. (Patient not taking: Reported on 07/28/2017) 30 tablet 12 No current facility-administered medications for this visit. Allergies Allergen Reactions Latex Hives Latex, Natural Rubber Amoxicillin Itching and Angioedema Unable To Find [Unclassified Drug] Anaphylaxis jalapeno [place] Rash Rash/ lips swell Diclofenac Nausea and hypertension Sulfa (Sulfonamide Antibiotics) Rash Ultrasound Date: 12/22/2023 Amniotic fluid volume normal Presentation cephalic Placenta anterior Growth appropriate for gestational age 1422gm, 33%ile anatomy limited but unremarkable Physical Exam BP 126/62 Wt 124.9 kg (275 lb 4.8 oz) BMI 50.35 kg/m?? General: alert, well appearing, in no apparent distress HEENT: normocephalic, atraumatic Abdomen: Soft, gravid, non-tender Neurologic:alert, oriented, normal speech, no focal findings or movement disorder noted Psychiatric: Affect is Appropriate. Assessment and Recommendations: 23 y.o. year old female at 29w5d weeks gestation, referred for counseling regarding TOLAC. I spent 30 minutes in face to face time with the patient of which 80% was in direct counseling, and a total of 10 minutes in patient care reviewing records and discussing her with other consultants. We reviewed the ultrasound findings and limitations of ultrasound in detecting anomalies and aneuploidy. The anatomy, placenta, growth and fluid appear unremarkable except limited by lategestational age. She desires a TOLAC. She has had a vaginal delivery. Her prior was in the setting of malpresenting twins in 2022. We discussed the risk and benefits of attempting including 5-7 in 1000 risk of uterine rupture with TOLAC and risk of abnormal placentation with future . Her predicted chance of success is ~63%. I recommended a follow up ultrasound and return visit for delivery planning. I appreciate the opportunity to be involved in this patients care, and am available if further questions should arise. ROS EARL MD 12/22/2023 Cc: Winsome Pugh MD [address] [place] [address] [place] [address] , with copy of ultrasound report documented in this encounter Plan of Treatment Not on file documented as of this encounter Results * US OB Follow Up (02/09/2024 2:33 PM EST) WORKSTATION ID [id number] RAD Anatomical Region Laterality Modality Pelvis, Abdomen Ultrasound 02/09/2024 2:30 PM EST Impressions 02/09/2024 2:42 PM EST 3rd Trimester Summary Single intrauterine with a gestational age of 36w 5d based on LMP ??(05/28/23) Composite age based on the current ultrasound alone is 36w 5d. Estimated weight corresponds to the 47th percentile for 36w 5d. Current growth parameters are consistent with prior dating indicating normal growth. Amniotic fluid volume is increased, consistent with Mild Polyhydramnios. BPP /. Anatomical survey is limited due to the late gestational age. Thank you for letting us participate in the care of this patient. If you are a health care provider and have any questions regarding this report, please contact the number above. For patients who have questions, please contact the health direct care worker that requested your imaging first. ? Bucky Pizarro, Staff Physician Electronically Signed Final Report ?? 02/09/2024 02:42 pm Narrative 02/09/2024 2:42 PM EST OBSTETRICS REPORT ?(Signed Final 02/09/2024 02:42 pm) PATIENT INFO: ID #: ? [id number] ?: ??00 (23 yrs)(F) Name: ? ANDREA M ? Visit Date: 02/09/2024 02:30 pm ? DANYA PERFORMED BY: Performed By: ? Howard COPELAND, ??Indira Attending: ?Bucky Pizarro MD Referred By: ?ROS EARL Location: ? [place] SERVICE(S) PROVIDED: UOBFOL - Efw - Growth ??- [place] - [id number] ?[id number] UBPP - Biophysical Profile (without NST) - [id number] ? [id number] INDICATIONS: 36 weeks gestation of ?Z3A.36 desies , high BMI, transfer of care VITAL SIGNS: Height: ?5'3 EVALUATION: Num Of Fetuses: ? 1 Heart Rate(bpm): ??137 Cardiac Activity: ? Observed, normal rhythm Presentation: ? Cephalic Placenta: ? Anterior P. Cord Insertion: ?Within Normal Limits Amniotic Fluid RENETTA FV: ?Mild Polyhydramnios RENETTA Sum(cm) ? Largest Pocket(cm) 27.5 ?8.5 RUQ(cm) ? RLQ(cm) ? LUQ(cm) ?LLQ(cm) 8.5 ? 5.9 ? 6.4 ?6.7 BIOPHYSICAL EVALUATION: Amniotic F.V: ?? Within normal limits ? F. Tone: ??Observed F. Movement: ?Observed ? Score: ??8/8 F. Breathing: ?? Observed --------- BIOMETRY: --------- BPD: ?92.1 ??mm ? G.Age: ?? 37w 3d ?80 ??% OFD: ? 116.0 ??mm HC: ?330.4 ??mm ? G.Age: ?? 37w 4d ?44 ??% AC: ?326.0 ??mm ? G.Age: ?? 36w 4d ?57 ??% FL: ? 68.8 ??mm ? G.Age: ?? 35w 2d ?16 ??% HUM: ?59.5 ??mm ? G.Age: ?? 34w 4d ?27 ??% CER: ?47.8 ??mm ? G.Age: ?? N/A ? > 95 ??% LV: ?6.8 ??mm CM: ?8.7 ??mm CI: ?79.4 ??% ? 70 - 86 FL/HC: ? 20.8 ??% ? 20.8 - 22.6 HC/AC: ? 1.01 ?0.92 - 1.05 FL/BPD: ?74.7 ??% ? 71 - 87 FL/AC: ? 21.1 ??% ? Est. FW: ?2936 ??gm ?6 lb 8 oz ?47 ??% OB HISTORY: : ?4 ? Term: ?? 3 Living: ? 3 GESTATIONAL AGE: LMP: ? 36w 5d ?Date: ??05/28/23 ? JOSELUIS: ?? 03/03/24 U/S Today: ? 36w 5d ?JOSELUIS: ?? 03/03/24 Best: ?36w 5d ?? Det. By: ??LMP ??(05/28/23) ?JOSELUIS: ?? 03/03/24 -------- ANATOMY: -------- Cranium: ? Visualized Cavum: ? Visualized Ventricles: ?Visualized Choroid Plexus: ?Visualized Cerebellum: ?Visualized Posterior Fossa: ? Visualized Nuchal Fold: ? Not evaluated at this gestational age Face: ?Limited views Heart: ? 4-chamber view appears normal Diaphragm: ? Visualized Stomach: ? Visualized Abdomen: ? Visualized Abdominal Wall: ?Limited views Cord Vessels: ?3-vessels- WNL Kidneys: ? Visualized Bladder: ? Visualized Spine: ? Limited views Upper Extremities: ? Limited views Lower Extremities: ? Limited views CERVIX UTERUS ADNEXA: Right Ovary Not visualized Left Ovary Not visualized Procedure Note Evi Pizarro MD - 02/09/2024 OBSTETRICS REPORT (Signed Final 02/09/2024 02:42 pm) PATIENT INFO: ID #: [id number] : [birth year] (23 yrs)(F) Name: ANDREA Michelle Visit Date: 02/09/2024 02:30 pm THERRIAULT PERFORMED BY: Performed By: Indira Lawrence RDMS Attending: Bucky Pizarro MD Referred By: ROS EARL Location: [place] SERVICE(S) PROVIDED: UOBFOL - Efw - Growth - [place] - [id number] UBPP - Biophysical Profile (without NST) - [id number] INDICATIONS: 36 weeks gestation of Z3A.36 desies , high BMI, transfer of care VITAL SIGNS: Height: 5'3 EVALUATION: Num Of Fetuses: 1 Heart Rate(bpm): 137 Cardiac Activity: Observed, normal rhythm Presentation: Cephalic Placenta: Anterior P. Cord Insertion: Within Normal Limits Amniotic Fluid RENETTA FV: Mild Polyhydramnios RENETTA Sum(cm) Largest Pocket(cm) 27.5 8.5 RUQ(cm) RLQ(cm) LUQ(cm) LLQ(cm) 8.5 5.9 6.4 6.7 BIOPHYSICAL EVALUATION: Amniotic F.V: Within normal limits F. Tone: Observed F. Movement: Observed Score: 10/25 F. Breathing: Observed --------- BIOMETRY: --------- BPD: 92.1 mm G.Age: 37w 3d 80 % OFD: 116.0 mm HC: 330.4 mm G.Age: 37w 4d 44 % AC: 326.0 mm G.Age: 36w 4d 57 % FL: 68.8 mm G.Age: 35w 2d 16 % HUM: 59.5 mm G.Age: 34w 4d 27 % CER: 47.8 mm G.Age: N/A > 95 % LV: 6.8 mm CM: 8.7 mm CI: 79.4 % 70 - 86 FL/HC: 20.8 % 20.8 - 22.6 HC/AC: 1.01 0.92 - 1.05 FL/BPD: 74.7 % 71 - 87 FL/AC: 21.1 % 20 - 24 Est. FW: 2936 gm 6 lb 8 oz 47 % OB HISTORY: : 4 Term: 3 Livin GESTATIONAL AGE: LMP: 36w 5d Date: 05/28/23 JOSELUIS: 03/03/24 U/S Today: 36w 5d JOSELUIS: 03/03/24 Best: 36w 5d Det. By: LMP (05/28/23) JOSELUIS: 03/03/24 -------- ANATOMY: -------- Cranium: Visualized Cavum: Visualized Ventricles: Visualized Choroid Plexus: Visualized Cerebellum: Visualized Posterior Fossa: Visualized Nuchal Fold: Not evaluated at this gestational age Face: Limited views Heart: 4-chamber view appears normal Diaphragm: Visualized Stomach: Visualized Abdomen: Visualized Abdominal Wall: Limited views Cord Vessels: 3-vessels- WNL Kidneys: Visualized Bladder: Visualized Spine: Limited views Upper Extremities: Limited views Lower Extremities: Limited views CERVIX UTERUS ADNEXA: Right Ovary Not visualized Left Ovary Not visualized IMPRESSION 3rd Trimester Summary Single intrauterine with a gestational age of 36w 5d based on LMP (05/28/23) Composite age based on the current ultrasound alone is 36w 5d. Estimated weight corresponds to the 47th percentile for 36w 5d. Current growth parameters are consistent with prior dating indicating normal growth. Amniotic fluid volume is increased, consistent with Mild Polyhydramnios. BPP 10/25. Anatomical survey is limited due to the late gestational age. Thank you for letting us participate in the care of this patient. If you are a health care provider and have any questions regarding this report, please contact the number above. For patients who have questions, please contact the health direct care worker that requested your imaging first. Bucky Pizarro, Staff Physician Electronically Signed Final Report 02/09/2024 02:42 pm Ros Earl MD IMG OB ORDERABL ES documented in this encounter Visit Diagnoses Diagnosis BMI 45.0-49.9, adult Body Mass Index 45.0-49.9, adult History of delivery Other postprocedural status BMI 45.0-49.9, adult Body Mass Index 45.0-49.9, adult History of delivery Other postprocedural status documented in this encounter Care Teams Business Integration Manager Relationship Specialty Start Date End Date None None PCP - General 12/22/23 documented as of this encounter
--- OUTSIDE RECORDS SUMMARY | 2024-05-05 10:43 | XMS_ITS | Encounter Summary ---
Author Organization Formerly [facility] Address [facility] [place] [address] Care Team Providers Care Hot Car Operator Name Role Phone Mauri Villar MD Primary Care Provider [phone] Encounter Details Date Type Department Care Team (Late st Contact Info) Description 11/22/2019 12:10 AM EDT Ancillary Procedure Radiology Library at [facility] [place] [id number] Mauri Villar MD [address] [place] [address] [place], [place] [id number] Social History Tobacco Use Types Packs/Day Years [...] And Spine (11/22/2019 12:10 AM EDT) Narrative [facility] - 11/26/2019 11:56 AM EDT This exam is auto-finalizing. It's purpose is for storage only. Mauri Villar MD IMG FILM LIBRARY OR DERABLES [facility] [place], [place] documented in this encounter Visit Diagnoses Not on filedocumented in this encounter Care Teams Hot Car Operator Relationship Specialty Start Date End Date Mauri Villar MD [address] [place] [address] PCP - General Pediatrics 07/28/17 12/11/23 documented as of this encounter
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
--- OUTSIDE RECORDS SUMMARY | 2024-05-05 10:43 | XMS_ITS | Encounter Summary ---
Author Organization [facility] Address [facility] [place] [address] Care Team Providers Care Pan Puller Name Role Phone Mauri Villar MD Primary Care Provider [phone] Encounter Details Date Type Department Care Team (Late st Contact Info) Description 12/09/2019 Telephone [place] [phone] Tania, ZOILA Solorzano [facility] [place] [address] Social History Tobacco Use Types Packs/Day Years [...] Return to work/ as of 12/09/2019 Company: [employer] located in [place], [place] Fax #: [phone] documented in this encounter Plan of Treatment Not on file documented as of this encounter Visit Diagnoses Not on filedocumented in this encounter Care Teams Pan Puller Relationship Specialty Start Date End Date Mauri Villar MD [address] [place] [address] PCP - General Pediatrics 07/28/17 12/11/23 documented as of this encounter
--- OUTSIDE RECORDS SUMMARY | 2024-05-05 10:43 | XMS_ITS | Encounter Summary ---
Author Organization [facility] [place] [address] Care Team Providers Care Guzzler Builder Name Role Phone Mauri Villar MD Primary Care Provider [phone] Encounter Details Date Type Department Care Team (Late st Contact Info) Description 12/13/2019 Telephone [place] [address] Hema Duran Social History Tobacco Use Types [...] Marin PA-C, per the patient's request via [employer] platform. * Telephone Encounter - Hema Duran [...] no restrictions. ? Would you like to cotton picker operator your letter, fax, mail, or myD-H? Fax ? To what address/fax#? [phone] ?? To whose attention? To Whom It May Concern documented in this encounter Plan of Treatment Not on file documented as of this encounter Visit Diagnoses Not on filedocumented in this encounter Care Teams Guzzler Builder Relationship Specialty Start Date End Date Mauri Villar MD [address] [place] [place] [address] PCP - General Pediatrics 07/28/17 12/11/23 documented as of this encounter
--- OUTSIDE RECORDS SUMMARY | 2024-05-05 10:43 | XMS_ITS | Encounter Summary ---
[place] [address] Care Team Providers Care Insulation Extruder Operator Name Role Phone None Primary Care Provider Unavailabl e Encounter Details Date Type Department Care Team (Latest Contact Info) Description 02/09/2024 Travel Social History Tobacco Use Types Packs/Day Years [...] on filedocumented in this encounter Care Teams Insulation Extruder Operator Relationship Specialty Start Date End Date None None PCP - General 12/22/23 documented as of this encounter
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
--- OUTSIDE RECORDS SUMMARY | 2024-05-05 10:43 | XMS_ITS | Continuity of Care Document ---
Author Organization 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 Phone MIGUEL BARI DANG Primary Care Physician Encounter [facility] NBR [id number] Date(s): 05/03/24 - 05/03/[address] [id number] Encounter Diagnosis Trimalleolar fracture of right ankle(Discharge Diagnosis) - 05/03/24 Discharge Disposition: Home or Self Care Attending Physician: Erich Tripp MD Admitting Physician: Erich Tripp MD Encounter Type: Emergency Allergies, Adverse Reactions, Alerts Substance Criticality Severity Reaction Reaction Severity Status amoxicillin Low criticality Mild Ac tive sulfa drugs Low criticality Mild Ac tive Assessment and Plan Extracted from: Title:ED Provider Note Author:Miguel Angel Robbins Date:05/03/24 Assessment/Plan X-ray shows trimalleolar fracture with displacement. ??Propofol/sedation, nasal cannula, propofol titrated up to 150 mg??total until her speech became slurred and??patient became somewhat somnolent.?? Reduction done with??assistance of PA;??splinted with posterior slab??and??U-shaped??stirrup.?? Postreduction x-ray shows??near normal anatomic alignment. ??There is evidence??fracture of??the distal fibula, medial malleolus??as well as posterior malleolus.?? Patient tolerated??reduction well; educated on crutches. ??Nonweightbearing.?? Case discussed with orthopedics; they will arrange close follow-up early in the week for operative repair.?? Patient given??2 Silsbee here; will write for 12??tablets over the weekend.?? Discharged told to use Tylenol/Motrin,??Silsbee for severe pain only not to combine with plain Tylenol.?? Keep elevated, ice for the first 24 hours.? 1.??Trimalleolar fracture of right ankle??S82.851A Orders: HYDROcodone-acetaminophen 5 mg-325 mg oral tablet, 1-2 Tablets, Oral, every 4 hr, PRN for pain, # 12 tab, 0 Refill(s), 05/08/24 15:19:00 EST, Pharmacy: [facility], 160, cm, 05/03/24 13:48:00 EST, Height, 130.7, kg, 05/03/24 13:53:00 EST, Weight Dosing Discharge Patient, 05/03/24 14:48:00 EST, Home Independently Patient Education Cast or Splint Care, Adult Ankle Fracture Follow Up With When Contact Information Follow up with Orthopedic Within 1 month Additional Instructions: Future Appointments Medications HYDROcodone-acetaminophen 5 mg-325 mg oral tablet 1-2 Tablets, Oral, every 4 hr, PRN for pain, # 12 tab, 0 Refill(s), 05/08/24 2:19:00 PM 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, Pharmacy: [facility], 160, cm, 05/03/24 13:48:00 EST, Height, 130.7, kg, 05/03/24 13:53:00 EST,Weight Dosing Start Date: 05/03/24 Stop Date: 05/08/24 Status: Ordered Quantity: 12.0 Unit: tab Repeat number: 1 Mental Status 05/03/24 Eye Opening Response Veronica Spontaneous ly Best Verbal Response [place] Oriented Best Motor Response [place] Obeys comman ds [place] Coma Score 15 Results Radiology Reports * Exam Date Time Procedure Performing Provider Status 05/03/24 2:25 PM XR Ankle Complete 3+ Views Right Prosp er, Cherie; Auth (Verified) Notes: (XR Ankle Complete 3+ Views Right) Reason For Exam: trauma XR Ankle Complete 3+ Views Right PROCEDURE INFORMATION: Exam: XR Right Ankle Exam date and time: 05/03/2024 2:06 PM Age: 23 years old Clinical indication: Injury or trauma; Fall; Other: Post reduction TECHNIQUE: Imaging protocol: Radiologic exam of the right ankle. Views: 3 or more views. COMPARISON: CR XR ANKLE 3 VIEWS RIGHT 05/03/2024 1:47 PM FINDINGS: Bones/joints: Status post reduction of dislocation in the right ankle joint. Trimalleolar fracture seen with near anatomic alignment of the fracture fragments, with residual slight offset/widening of the lateral ankle mortise. Soft tissues: There is soft tissue swelling note d.Overlying cast material limits evaluation. IMPRESSION: Trimalleolar right ankle fracture now in near anatomic alignment. THIS DOCUMENT HAS BEEN ELECTRONICALLY SIGNED BY LION ANDRES MD on 05/03/2024 02:28 PM Final Signed by: Lion Andres MD Signed (Electronic Signature): 05/03/2024 2:28 pm * Exam Date Time Procedure Performing Provider Status 05/03/24 1:56 PM XR Ankle Complete 3+ Views Right Prosp er, Cherie; Auth (Verified) Notes: (XR Ankle Complete 3+ Views Right) Reason For Exam: trauma XR Ankle Complete 3+ Views Right PROCEDURE INFORMATION: Exam: XR Right Ankle Exam date and time: 05/03/2024 1:47 PM Age: 23 years old Clinical indication: Injury or trauma; Fall; Dislocation; Ankle; Right TECHNIQUE: Imaging protocol: Radiologic exam of the right ankle. Views: 3 or more views. COMPARISON: No relevant prior studies available. FINDINGS: Bones/joints: Acute fracture of the distal shaft of the fibula with lateral and posterior angulation and displacement. There is a lateral and posterior dislocation/subluxation at the tibiotalar joint with acute fracture of the medial malleolus and possible posterior malleolus fracture. Soft tissues: There is soft tissue swelling noted. IMPRESSION: Bimalleolar or trimalleolar ankle fracture dislocation as described. THIS DOCUMENT HAS BEEN ELECTRONICALLY SIGNED BY LION ANDRES MD on 05/03/2024 02:22 PM Final Signed by: Lion Andres MD Signed (Electronic Signature): 05/03/2024 2:22 pm Vital Signs Most recent to oldest [Reference Range]: 1 2 3 Temperature Temporal Artery [36-38 Deg C] 36.5 Deg C (05/03/24 1:48 PM) Peripheral Pulse Rate [60-100 bpm] 81 bpm (05/03/24 2:47 PM) 85 bpm (05/03/24 2:45 PM) 75 bpm (05/03/24 2:10 PM) Heart Rate Monitored [60-100 bpm] 80 bpm (05/03/24 2:47 PM) 88 bpm (05/03/24 2:45 PM) 77 bpm (05/03/24 2:10 PM) Respiratory Rate [12-24 br/min] 21 br/min (05/03/24 2:47 PM) 13 br/min (05/03/24 2:45 PM) 16 br/min (05/03/24 2:10 PM) Blood Pressure [90-120/60-80 mmHg] 132/78mmHg *HI* (05/03/24 2:45 PM) 130/64mmHg *HI* (05/03/24 2:00 PM) 138/94mmHg *HI* (05/03/24 1:48 PM) Mean Arterial Pressure, Cuff [65-140 mmHg] 96 mmHg (05/03/24 2:45 PM) 86 mmHg (05/03/24 2:00 PM) 109 mmHg (05/03/24 1:48 PM) Mean Arterial Pressure Cuff [65-140 mmHg] 92 mmHg (05/03/24 2:45 PM) Weight 130.7 kg (05/03/24 1:48 PM) Weight Dosing 130.700 kg (05/03/24 1:48 PM) Height 160 cm (05/03/24 1:48 PM) Body Mass Index 51.05 kg/m2 (05/03/24 1:48 PM) Social History Social History Type Response Tobacco Never tobacco user T obacco Use:. Sex Sex Representation Female (finding) Hospital Discharge Instructions Patient Education 05/03/2024 14:15:44 Cast or Splint Care, Adult Cast or Splint Care, Adult Casts and splints are supports that are worn to protect broken bones and other injuries. A cast or splint may hold a bone still and in the correct position while it heals. Casts and splints may also help with pain, swelling, and muscle spasms. A cast is a hardened support that is usually made of fiberglass or plaster. It is custom-fit to thebody and offers more protection than a splint. Most casts cannot be taken off and put back on. A splint is a type of soft support that is usually made from cloth and elastic. It can be adjusted or taken off as needed. Often, when a bone is broken, a splint is put on until the swelling goes down, and then the splint is replaced by a cast. You may need a cast or a splint if you: ??? Have a broken bone. ??? Have a soft-tissue injury. ??? Need to keep an injured body part from moving (keep it immobile) after surgery. What are the risks? In some cases, wearing a cast or splint can cause a reduced blood supply to the wrist or hand or tothe foot and toes. This can happen if there is a lot of swelling or if the cast or splint is too tight. Limited blood supply results in a condition called compartment syndrome and can cause permanentdamage. Symptoms include: ??? Pain that is getting worse. ??? Numbness and tingling. ??? Changes in skin color, including paleness or a bluish color. ??? Cold fingers or toes. Other complications of wearing a cast or splint can include: ??? Skin irritation that can cause itching, rash, skin sores, or skin infection. ??? Limb stiffness or weakness. How to care for a nonremovable cast or splint ??? Do not put pressure on any part of the cast or splint until it is fully hardened. This may takeseveral hours. ??? Check the skin around the cast or splint every day. Tell your health care provider about any concerns. ??? Do not stick anything inside the cast or splint to scratch your skin. Doing that increases yourrisk of infection. ??? You may put lotion on dry skin around the edges of the cast or splint. Do not put lotion on theskin underneath the cast or splint. ??? Keep the cast or splint clean and dry. How to care for a removable splint ??? Wear the splint as told by your health care provider. Remove it only as told by your health care provider. ??? Check the skin around the splint every day. Tell your health care provider about any concerns. ??? Loosen the splint if your fingers tingle, become numb, or turn cold and blue. ??? Keep the splint clean and dry. Clean your splint as told by your health care provider. Use mildsoap and water and let it air-dry. Do not use heat on your splint. Follow these instructions at home: Bathing ??? Do not take baths, swim, or use a hot tub until your health care provider approves. Ask your health care provider if you may take showers. You may only be allowed to take sponge baths. ??? If your cast or splint is not waterproof: ??? Do not let it get wet. ??? Cover it with a watertight covering when you take a bath or shower. Managing pain, stiffness, and swelling ??? If directed, put ice on the affected area. To do this: ??? If you have a removable cast or splint, remove it as told by your health care provider. ??? Put ice in a plastic bag. ??? Place a towel between your skin and the bag or between your cast and the bag. ??? Leave the ice on for 20 minutes, 2???3 times a day. ??? Remove the ice if your skin turns bright red. This is very important. If you cannot feel pain, heat, or cold, you have a greater risk of damage to the area. ??? Move your fingers or toes often to reduce stiffness and swelling. ??? Raise (elevate) the injured area above the level of your heart while you are sitting or lying down. Safety ??? Do not use the injured limb to support your body weight until your health care provider says that you can. Use crutches or other assistive devices as told by your health care provider. ??? Ask your health care provider when it is safe to drive if you have a cast or splint on part of your body. General instructions ??? Take mace-awp-zuugikd and prescription medicines only as told by your health care provider. ??? Return to your normal activities as told by your health care provider. Ask your health care provider what activities are safe for you. ??? Keep all follow-up visits. This is important. Contact a health care provider if: ??? The skin around the cast or splint gets red or raw. ??? The skin under the cast is extremely itchy or painful. ??? Your cast or splint: ??? Gets damaged. ??? Feels very uncomfortable. ??? Is too tight or too loose. ??? Your cast becomes wet or develops a soft spot or area. ??? You notice a bad smell coming from under your cast. ??? You get an object stuck under your cast. ??? There is fluid leaking through the cast. Get help right away if: ??? You develop any symptoms of compartment syndrome, such as: ??? Severe pain or pressure under the cast. ??? Numbness, tingling, coldness, or pale or bluish skin. ??? The part of your body above or below the cast is swollen and discolored. ??? You cannot feel or move your fingers or toes. ??? You have trouble breathing or shortness of breath. ??? You have chest pain. ??? Your pain gets worse. These symptoms may represent a serious problem that is an emergency. Do not wait to see if the symptoms will go away. Get medical help right away. Call your local emergency services (911 in the [place] Do not drive yourself to the hospital. Summary ??? Casts and splints are worn to protect broken bones and other injuries. ??? Casts and splints should remain clean and dry. ??? Remove your cast or splint only as told by your health care provider. ??? Get help right away if your pain gets worse, or if you have numbness, tingling, or skin that turns cold, blue, or discolored. This information is not intended to replace advice given to you by your health care provider. Make sure you discuss any questions you have with your health care provider. Document Revised: 08/31/2021 Document Reviewed: 08/31/2021 Commissioner Patient Education ?? 2022 [employer]. 05/03/2024 14:15:42 Ankle Fracture Ankle Fracture The ankle joint is made up of the lower (distal) sections of the lower leg bones, called the tibia and fibula, along with a bone in the foot called the talus. An ankle fracture is a break in one, two, or all three of these sections of bone. There are two general types of ankle fractures: ??? Stable fracture. This happens when one of the bones is broken, but the bones of the ankle jointstay in their normal positions. ??? Unstable fracture. This type can include more than one broken bone. It can also happen if the outer bone is broken and the strong tissues that connect bones to each other (ligaments) are also injured at the inner ankle. This type of fracture allows the talus to move out of its normal position. What are the causes? This condition may be caused by: ??? A hard, direct hit to the ankle. ??? Quickly and severely twisting your ankle, often while your foot is planted and the rest of yourbody is moving. ??? Trauma, such as from a car crash or a fall from a height. What increases the risk? The following factors may make you more likely to develop this condition: ??? Being overweight. ??? Participating in sports that involve quick direction changes, as in soccer. ??? Doing high-impact sports such as gymnastics or football. What are the signs or symptoms? Symptoms of this condition include: ??? A tender and swollen ankle. ??? Bruising around your injured ankle. ??? Pain when moving or pressing on your ankle. ??? Trouble walking or using your ankle to support your body weight (putting weight on your ankle). ??? Pain that gets worse when you move your foot or ankle or when you stand. ??? Pain that gets better with rest. How is this diagnosed? An ankle fracture is usually diagnosed with a physical exam and X-rays. You may also have a CT scanor an MRI. How is this treated? Treatment for this condition depends on the type of ankle fracture you have. Stable fractures are treated with a cast, boot, or splint to hold the ankle still and crutches to avoid putting weight on the ankle until the fracture heals. Unstable fractures require surgery to ensure that the bones healproperly. After surgery, you will have a splint. After your incision has healed, your surgeon may give you a cast or a boot. You will not be able to put weight on your injured side for several weeks. After your ankle has healed, you will do physical therapy exercises to improve movement and strength in your ankle. Follow these instructions at home: If you have a boot or splint: ??? Wear the boot or splint as told by your health care provider. Remove it only as told by your health care provider. ??? Loosen it if your toes tingle, become numb, or turn cold and blue. ??? Keep it clean and dry. If you have a cast: ??? Do not put pressure on any part of the cast until it is fully hardened. This may take several hours. ??? Do not stick anything inside the cast to scratch your skin. Doing that increases your risk of infection. ??? Check the skin around the cast every day. Tell your health care provider about any concerns. ??? You may put lotion on dry skin around the edges of the cast. Do not put lotion on the skin underneath the cast. ??? Keep it clean and dry. Bathing ??? Do not take baths, swim, or use a hot tub until your health care provider approves. Ask your health care provider if you may take showers. You may only be allowed to take sponge baths. ??? If the cast, boot, or splint is not waterproof: ??? Do not let it get wet. ??? Cover it with a watertight covering when you take a bath or shower. Managing pain, stiffness, and swelling ??? If directed, put ice on the injured area. To do this: ??? If you have a removable splint or boot, remove it as told by your health care provider. ??? Put ice in a plastic bag. ??? Place a towel between your skin and the bag or between your cast and the bag. ??? Leave the ice on for 20 minutes, 2???3 times a day. ??? Remove the ice if your skin turns bright red. This is very important. If you cannot feel pain, heat, or cold, you have a greater risk of damage to the area. ??? Move your toes often to reduce stiffness and swelling. ??? Raise (elevate) the injured area above the level of your heart while you are sitting or lying down. Activity ??? Do exercises as told by your health care provider. ??? Return to your normal activities as told by your health care provider. Ask your health care provider what activities are safe for you. ??? Do not use the injured limb to support your body weight until your health care provider says that you can. Use crutches as told by your health care provider. General instructions ??? Take vcna-rvj-cmsfzih and prescription medicines only as told by your health care provider. ??? Ask your health care provider when it is safe to drive if you have a cast, boot, or splint on your ankle. ??? Do not use any products that contain nicotine or tobacco, such as cigarettes, e-cigarettes, andchewing tobacco. These can delay bone healing. If you need help quitting, ask your health care provider. ??? Keep all follow-up visits. This is important. Contact a health care provider if: ??? You have pain or swelling that gets worse or does not get better with rest or medicine. ??? Your cast gets damaged. Get help right away if: ??? You have severe pain that lasts. ??? You develop new pain or swelling. ??? Your skin or toenails below the injury turn blue or knowles, feel cold, become numb, or are less sensitive to the touch. Summary ??? An ankle fracture can be stable or unstable. This is determined after a physical exam and imaging studies such as X-rays, a CT scan, or an MRI. ??? Stable fractures are treated with a cast, boot, or splint to hold the ankle still until the fracture heals. Unstable fractures require surgery to ensure that the bones heal properly. ??? You will not be able to put weight on your injured side for several weeks. ??? Medicines, icing, and raising (elevating) your injured ankle when you are sitting or lying downmay help with pain relief. Follow instructions as told by your health care provider. This information is not intended to replace advice given to you by your health care provider. Make sure you discuss any questions you have with your health care provider. Document Revised: 06/04/2020 Document Reviewed: 06/04/2020 Commissioner Patient Education ?? 2022 [employer]. Follow Up Care 05/03/2024 13:41:33 With:Follow up with Orthopedic Address:Unknown When:1 month Physician Emergency department Note * Erich Tripp MD: PERFORM Event Display: ED Note Physician Authored Date: [id number] ANDREA HAGAN :2000 Age:23 years Sex:Female Visit Date:05/03/2024 Primary Care Physician: BARI MANZANO Basic Information Time Seen: Erich Tripp MD / 05/03/2024 13:46 Chief Complaint Pt arrived via ambulance with c/o rolled R ankle. Deformity noted. tylenol 1 g IN and nitrous en route. History Of Present Illness: Morbidly obese??young woman, mother of 4,??[facility]pped [facility]pped??presents with??obvious??dislocated right ankle.?? Isolated injury. ??Did not hit her head, no LOC, denies any pain in her neck chest abdomen pelvis or other extremities.?? Brought in by ambulance GCS 15.?? Not on ant icoagulants.?? Was given nitrous en route.?? Complaining of severe pain (was given 100 of fentanyl??IV). Review of Systems: Denies antecedent illness or injury; did not strike her head, no neck chest abdomen pelvis complaints,??no limb complaints apart from right??ankle.?? No open wounds, no bleeding. Physical Exam Vitals & Measurements T:??36.5?C ??(Temporal Artery)?? HR:??81??(Peripheral)?? HR:??80??(Monitored)?? RR:??21?? BP:??132/78?? SpO2:??100%?? HT:??160??cm?? WT:??130.7??kg?? BMI:??51.05?? Pain Score:??10?? O2 Therapy:??Room air? Physical Exam: General: [Alert and oriented, well nourished, morbidly obese woman in obvious discomfort from rightankle fracture,??GCS 15.?? Hemodynamically stable Eye: [PERRL, EOMI, normal conjunctiva]. HENT: [Normocephalic, normal hearing, moist oral mucosa, no scleral icterus, no nasal discharge].?? Neck: [Ranging neck, normal inspection].?Nontender full range of motion Lungs: [Clear to auscultation, non-labored respiration, no tachypnea].?Nontender??rib cage??softthroughout Heart: [Normal rate, regular rhythm, no murmur, gallop or edema]. Abdomen: [Soft, non-tender, non-distended, normal bowel sounds].?? Musculoskeletal: Deformed obviously dislocated right ankle,??nontender at knee, able to wiggle the toes,??neurovascularly intact distally.?? Quite tender at??right ankle. ??Remainder of extremities are normal. Skin: [Skin is warm, dry and pink, no rashes or lesions]. Neurologic: [Awake, alert and oriented X4, normal tone, moving all extremities with good strength??except right ankle?? Psychiatric: [Cooperative, appropriate mood and affect]. Procedure No Qualifying Data Assessment/Plan X-ray shows trimalleolar fracture with displacement. ??Propofol/sedation, nasal cannula, propofol titrated up to 150 mg??total until her speech became slurred and??patient became somewhat somnolent.?? Reduction done with??assistance of PA;??splinted with posterior slab??and??U-shaped??stirrup.?? Postreduction x-ray shows??near normal anatomic alignment. ??There is evidence??fracture of??the distal fibula, medial malleolus??as well as posterior malleolus.?? Patient tolerated??reduction well; educated on crutches. ??Nonweightbearing.?? Case discussed with orthopedics; they will arrange close follow-up early in the week for operative repair.?? Patient given??2 Silsbee here; will write for 12??tablets over the weekend.?? Discharged told to use Tylenol/Motrin,??Silsbee for severe pain only not to combine with plain Tylenol.?? Keep elevated, ice for the first 24 hours.? 1.??Trimalleolar fracture of right ankle??S82.851A Orders: HYDROcodone-acetaminophen 5 mg-325 mg oral tablet, 1-2 Tablets, Oral, every 4 hr, PRN for pain, # 12 tab, 0 Refill(s), 05/08/24 15:19:00 EST, Pharmacy: [facility], 160, cm, 05/03/24 13:48:00 EST, Height, 130.7, kg, 05/03/24 13:53:00 EST, Weight Dosing Discharge Patient, 05/03/24 14:48:00 EST, Home Independently Patient Education Cast or Splint Care, Adult Ankle Fracture Follow Up With When Contact Information Follow up with Orthopedic Within 1 month Additional Instructions: Medication Reconciliation New Prescription HYDROcodone-acetaminophen (HYDROcodone-acetaminophen 5 mg-325 mg oral tablet)1-2 Tablets Oral (given by mouth) every 4 hours as needed for pain. Refills: 0. Problem List/Past Medical History Ongoing Morbid obesity Historical No qualifying data Medication Administration Given HYDROcodone-acetaminophen 5 mg-325 mg oral tablet, 2 tab, Oral Allergies amoxicillin sulfa drugs Social History Electronic Cigarette/Vaping Electronic Cigarette Use: Use, within last 90 days. Type: Nicotine infused. Tobacco Never tobacco user Tobacco Use:. Diagnostic Results XR Ankle Complete 3+ Views Right 05/03/2024 14:22 EST XR Ankle Complete 3+ Views Right 05/03/2024 14:28 EST XR Ankle Complete 3+ Views Right ?? 05/03/24 14:06:55 PROCEDURE INFORMATION: Exam: XR Right Ankle Exam date and time: 05/03/2024 2:06 PM Age: 23 years old Clinical indication: Injury or trauma; Fall; Other: Post reduction ?? TECHNIQUE: Imaging protocol: Radiologic exam of the right ankle. Views: 3 or more views. ?? COMPARISON: CR XR ANKLE 3 VIEWS RIGHT 05/03/2024 1:47 PM ?? FINDINGS: Bones/joints: Status post reduction of dislocation in the right ankle joint. Trimalleolar fracture seen with near anatomic alignment of the fracture fragments, with residual slight offset/widening of the lateral ankle mortise. Soft tissues: There is soft tissue swelling note d.Overlying cast material limits evaluation. ? IMPRESSION: Trimalleolar right ankle fracture now in near anatomic alignment. ? THIS DOCUMENT HAS BEEN ELECTRONICALLY SIGNED BY LION ANDRES MD on 05/03/2024 02:28 PM ?? Signed By: Lion Andres MD ?? XR Ankle Complete 3+ Views Right ?? 05/03/24 13:47:05 PROCEDURE INFORMATION: Exam: XR Right Ankle Exam date and time: 05/03/2024 1:47 PM Age: 23 years old Clinical indication: Injury or trauma; Fall; Dislocation; Ankle; Right ?? TECHNIQUE: Imaging protocol: Radiologic exam of the right ankle. Views: 3 or more views. ?? COMPARISON: No relevant prior studies available. ?? FINDINGS: ?? Bones/joints: Acute fracture of the distal shaft of the fibula with lateral and posterior angulation and displacement. There is a lateral and posterior dislocation/subluxation at the tibiotalar joint with acute fracture of the medial malleolus and possible posterior malleolus fracture. ?? Soft tissues: There is soft tissue swelling noted. ? IMPRESSION: Bimalleolar or trimalleolar ankle fracture dislocation as described. ? THIS DOCUMENT HAS BEEN ELECTRONICALLY SIGNED BY LION ANDRES MD on 05/03/2024 02:22 PM ?? Signed By: Lion Andres MD Electronically Signed on 05/03/2024 20:15 EST Erich Tripp MD Emergency department Discharge instructions * Erich Tripp MD: PERFORM Event Display: ED Discharge Information Authored Date: [id number] PRABHADOUGLASANDREA :2000 Age:23 years Sex:Female Visit Date:05/03/2024 Primary Care Physician: BARI MANZANO Discharge Instructions We would like to thank you for allowing us to assist you with your healthcare needs. The following includes patient education materials and information regarding your injury/illness. Diagnosis from Today's Visit Trimalleolar fracture of right ankle Discharge Vitals Temperature??(Temporal Artery) 97.7 ??F (36.5 ??C) Heart Rate??(Peripheral) 81 Heart Rate??(Monitored) 80 Respiratory Rate?? 21 Blood Pressure?? 132/78?? SpO2?? 100% Height?? 62.99 in (160 cm) Weight?? 288.19 lb (130.7 kg) BMI?? 51.05 Allergies amoxicillin sulfa drugs What to Do Next Instructions from Your Care Team Contact [facility]/orthopedics; you will need this injury repaired??(with surgery). ??Do not walk on your splint; crutch walking only. ??Do not get the splint wet. ??Keep elevated is much as possible over the next few days; apply ice??20 minutes at a time over the fracture site (in a drive bag over the splint).?? Take either plain Tylenol or Tylenol with hydrocodone; do not combine them (you will get extra Tylenol if you do).?? Is also okay to take Motrin 600 mg??up to 4 times a day with food.?? Return to emergency if you develop??worsening pain, fevers,??shortness of breath or anything else acutely worsens. You Need to Schedule the Following Appointments Follow Up with??Follow up with Orthopedic When:??Within 1 month You were treated today on an emergency basis; it may be mae to contact your primary care provider to notify them of your visit today. You may have been referred to your regular doctor or a specialist, please follow up as instructed. If your condition worsens or you can't get in to see the doctor, contact the Emergency Department. Medications What How Much When Instructions Next Dose New HYDROcodone-acetaminophen (HYDROcodone-acetaminophen 5 mg-325 mg oral tablet) 1-2 Tablets Oral (given by mouth) Every 4 hours as needed for for pain Pickup at [facility] Pharmacy Information [facility]: [address], [place] [id number] [phone] Education Materials Cast or Splint Care, Adult Casts and splints are supports that are worn to protect broken bones and other injuries. A cast or splint may hold a bone still and in the correct position while it heals. Casts and splints may also help with pain, swelling, and muscle spasms. A cast is a hardened support that is usually made of fiberglass or plaster. It is custom-fit to thebody and offers more protection than a splint. Most casts cannot be taken off and put back on. A splint is a type of soft support that is usually made from cloth and elastic. It can be adjusted or taken off as needed. Often, when a bone is broken, a splint is put on until the swelling goes down, and then the splint is replaced by a cast. You may need a cast or a splint if you: ? Have a broken bone. ? Have a soft-tissue injury. ? Need to keep an injured body part from moving (keep it immobile) after surgery. What are the risks? In some cases, wearing a cast or splint can cause a reduced blood supply to the wrist or hand or tothe foot and toes. This can happen if there is a lot of swelling or if the cast or splint is too tight. Limited blood supply results in a condition called compartment syndrome and can cause permanentdamage. Symptoms include: ? Pain that is getting worse. ? Numbness and tingling. ? Changes in skin color, including paleness or a bluish color. ? Cold fingers or toes. Other complications of wearing a cast or splint can include: ? Skin irritation that can cause itching, rash, skin sores, or skin infection. ? Limb stiffness or weakness. How to care for a nonremovable cast or splint ? Do not put pressure on any part of the cast or splint until it is fully hardened. This may take several hours. ? Check the skin around the cast or splint every day. Tell your health care provider about any concerns. ? Do not stick anything inside the cast or splint to scratch your skin. Doing that increases your risk of infection. ? You may put lotion on dry skin around the edges of the cast or splint. Do not put lotion on the skin underneath the cast or splint. ? Keep the cast or splint clean and dry. How to care for a removable splint ? Wear the splint as told by your health care provider. Remove it only as told by your health care provider. ? Check the skin around the splint every day. Tell your health care provider about any concerns. ? Loosen the splint if your fingers tingle, become numb, or turn cold and blue. ? Keep the splint clean and dry. Clean your splint as told by your health care provider. Use mild soap and water and let it air-dry. Do not use heat on your splint. Follow these instructions at home: Bathing ? Do not take baths, swim, or use a hot tub until your health care provider approves. Ask your healthcare provider if you may take showers. You may only be allowed to take sponge baths. ? If your cast or splint is not waterproof: ? Do not let it get wet. ? Cover it with a watertight covering when you take a bath or shower. Managing pain, stiffness, and swelling ? If directed, put ice on the affected area. To do this: ? If you have a removable cast or splint, remove it as told by your health care provider. ? Put ice in a plastic bag. ? Place a towel between your skin and the bag or between your cast and the bag. ? Leave the ice on for 20 minutes, 2???3 times a day. ? Remove the ice if your skin turns bright red. This is very important. If you cannot feel pain, heat, or cold, you have a greater risk of damage to the area. ? Move your fingers or toes often to reduce stiffness and swelling. ? Raise (elevate) the injured area above the level of your heart while you are sitting or lying down. Safety ? Do not use the injured limb to support your body weight until your health care provider says that you can. Use crutches or other assistive devices as told by your health care provider. ? Ask your health care provider when it is safe to drive if you have a cast or splint on part of yourbody. General instructions ? Take malv-oru-hzbcure and prescription medicines only as told by your health care provider. ? Return to your normal activities as told by your health care provider. Ask your health care provider what activities are safe for you. ? Keep all follow-up visits. This is important. Contact a health care provider if: ? The skin around the cast or splint gets red or raw. ? The skin under the cast is extremely itchy or painful. ? Your cast or splint: ? Gets damaged. ? Feels very uncomfortable. ? Is too tight or too loose. ? Your cast becomes wet or develops a soft spot or area. ? You notice a bad smell coming from under your cast. ? You get an object stuck under your cast. ? There is fluid leaking through the cast. Get help right away if: ? You develop any symptoms of compartment syndrome, such as: ? Severe pain or pressure under the cast. ? Numbness, tingling, coldness, or pale or bluish skin. ? The part of your body above or below the cast is swollen and discolored. ? You cannot feel or move your fingers or toes. ? You have trouble breathing or shortness of breath. ? You have chest pain. ? Your pain gets worse. These symptoms may represent a serious problem that is an emergency. Do not wait to see if the symptoms will go away. Get medical help right away. Call your local emergency services (911 in the [place] Do not drive yourself to the hospital. Summary ? Casts and splints are worn to protect broken bones and other injuries. ? Casts and splints should remain clean and dry. ? Remove your cast or splint only as told by your health care provider. ? Get help right away if your pain gets worse, or if you have numbness, tingling, or skin that turns cold, blue, or discolored. This information is not intended to replace advice given to you by your health care provider. Make sure you discuss any questions you have with your health care provider. Document Revised: 08/31/2021 Document Reviewed: 08/31/2021 [employer] Patient Education ?? 2022 [employer] Ankle Fracture The ankle joint is made up of the lower (distal) sections of the lower leg bones, called the tibia and fibula, along with a bone in the foot called the talus. An ankle fracture is a break in one, two, or all three of these sections of bone. There are two general types of ankle fractures: ? Stable fracture. This happens when one of the bones is broken, but the bones of the ankle joint stay in their normal positions. ? Unstable fracture. This type can include more than one broken bone. It can also happen if the outerbone is broken and the strong tissues that connect bones to each other (ligaments) are also injuredat the inner ankle. This type of fracture allows the talus to move out of its normal position. What are the causes? This condition may be caused by: ? A hard, direct hit to the ankle. ? Quickly and severely twisting your ankle, often while your foot is planted and the rest of your body is moving. ? Trauma, such as from a car crash or a fall from a height. What increases the risk? The following factors may make you more likely to develop this condition: ? Being overweight. ? Participating in sports that involve quick direction changes, as in soccer. ? Doing high-impact sports such as gymnastics or football. What are the signs or symptoms? Symptoms of this condition include: ? A tender and swollen ankle. ? Bruising around your injured ankle. ? Pain when moving or pressing on your ankle. ? Trouble walking or using your ankle to support your body weight (putting weight on your ankle). ? Pain that gets worse when you move your foot or ankle or when you stand. ? Pain that gets better with rest. How is this diagnosed? An ankle fracture is usually diagnosed with a physical exam and X-rays. You may also have a CT scanor an MRI. How is this treated? Treatment for this condition depends on the type of ankle fracture you have. Stable fractures are treated with a cast, boot, or splint to hold the ankle still and crutches to avoid putting weight on the ankle until the fracture heals. Unstable fractures require surgery to ensure that the bones healproperly. After surgery, you will have a splint. After your incision has healed, your surgeon may give you a cast or a boot. You will not be able to put weight on your injured side for several weeks. After your ankle has healed, you will do physical therapy exercises to improve movement and strength in your ankle. Follow these instructions at home: If you have a boot or splint: ? Wear the boot or splint as told by your health care provider. Remove it only as told by your healthcare provider. ? Loosen it if your toes tingle, become numb, or turn cold and blue. ? Keep it clean and dry. If you have a cast: ? Do not put pressure on any part of the cast until it is fully hardened. This may take several hours. ? Do not stick anything inside the cast to scratch your skin. Doing that increases your risk of infection. ? Check the skin around the cast every day. Tell your health care provider about any concerns. ? You may put lotion on dry skin around the edges of the cast. Do not put lotion on the skin underneath the cast. ? Keep it clean and dry. Bathing ? Do not take baths, swim, or use a hot tub until your health care provider approves. Ask your healthcare provider if you may take showers. You may only be allowed to take sponge baths. ? If the cast, boot, or splint is not waterproof: ? Do not let it get wet. ? Cover it with a watertight covering when you take a bath or shower. Managing pain, stiffness, and swelling ? If directed, put ice on the injured area. To do this: ? If you have a removable splint or boot, remove it as told by your health care provider. ? Put ice in a plastic bag. ? Place a towel between your skin and the bag or between your cast and the bag. ? Leave the ice on for 20 minutes, 2???3 times a day. ? Remove the ice if your skin turns bright red. This is very important. If you cannot feel pain, heat, or cold, you have a greater risk of damage to the area. ? Move your toes often to reduce stiffness and swelling. ? Raise (elevate) the injured area above the level of your heart while you are sitting or lying down. Activity ? Do exercises as told by your health care provider. ? Return to your normal activities as told by your health care provider. Ask your health care provider what activities are safe for you. ? Do not use the injured limb to support your body weight until your health care provider says that you can. Use crutches as told by your health care provider. General instructions ? Take arzs-hfa-dweuxdf and prescription medicines only as told by your health care provider. ? Ask your health care provider when it is safe to drive if you have a cast, boot, or splint on your ankle. ? Do not use any products that contain nicotine or tobacco, such as cigarettes, e- cigarettes, and chewing tobacco. These can delay bone healing. If you need help quitting, ask your health care provider. ? Keep all follow-up visits. This is important. Contact a health care provider if: ? You have pain or swelling that gets worse or does not get better with rest or medicine. ? Your cast gets damaged. Get help right away if: ? You have severe pain that lasts. ? You develop new pain or swelling. ? Your skin or toenails below the injury turn blue or knowles, feel cold, become numb, or are less sensitive to the touch. Summary ? An ankle fracture can be stable or unstable. This is determined after a physical exam and imaging studies such as X-rays, a CT scan, or an MRI. ? Stable fractures are treated with a cast, boot, or splint to hold the ankle still until the fracture heals. Unstable fractures require surgery to ensure that the bones heal properly. ? You will not be able to put weight on your injured side for several weeks. ? Medicines, icing, and raising (elevating) your injured ankle when you are sitting or lying down mayhelp with pain relief. Follow instructions as told by your health care provider. This information is not intended to replace advice given to you by your health care provider. Make sure you discuss any questions you have with your health care provider. Document Revised: 06/04/2020 Document Reviewed: 06/04/2020 [employer] Patient Education ?? 2022 [employer] Tests Performed Radiology XR Ankle Complete 3+ Views Right 05/03/2024 14:22 EST XR Ankle Complete 3+ Views Right 05/03/2024 14:28 EST Medications and Immunizations Administered Given HYDROcodone-acetaminophen 5 mg-325 mg oral tablet, 2 tab, Oral Patient/Veneer Jointer Offbearer Signature Patient Name:RA DANYATERRANCE Michelle I have received this information and my questions have been answered. Patient/Veneer Jointer Offbearer Name: Patient/Veneer Jointer Offbearer Signature: Relationship to Patient: Witness Name/Signature: Date: Electronically Signed on: 05/03/2024 15:21 ESTSigned by:SHAR Patient Care team information Care Team Personnel Name: BARI MANZANO Position: No Access Member Role: Primary Care Physician Address: [address] [place] [address] [place] [address] [facility] Telecom: Care Team Related Persons Name: LAMONT BLISS Insurance Providers Guarantor name: ANDREA HAGAN Health Plan Information #: 1 Payer: [place] [place] Member Number: [id number] Policy Number: NA Group Number: NA Health Plan Information #: 2 Payer: [place] [place] Member Number: [id number] Policy Number: NA Group Number: NA
--- OUTSIDE RECORDS SUMMARY | 2024-05-05 10:43 | XMS_ITS | Encounter Summary ---
Author Organization Formerly [facility] [place] [address] Care Team Providers Care Technology Officer Name Role Phone None Primary Care Provider Unavailabl e Reason for Visit * Auth/Cert (Routine) Specialty Diagnoses / Procedures Referred By Jack sherman Referred To Contact Diagnoses Encounter for induction of labor Procedures VAGINAL DELIVERY Brianda Petersen MD [facility] OBSTET[place] [address] [facility] Referral ID Status Reason Start Date Expiration Date Visits Re quested Visits Authorized [id number] 1 1 Encounter Details Date Type Department Care Team (Late st Contact Info) Description 02/25/2024 12:07 PM EST [place] [address] Bowen Osullivan MD [facility] [place] [address] Anesthesia Record Procedure Summary Procedure Name Responsible Anesthesiologist Anesthesia Start Time Anesthesia Stop Time Labor Analgesia (proc) Events Date Time Event Comment 02/25/2024 1225 Labor Neuraxial 1225 AN Verify Meds * Agents No agents on file. * Blood No blood administrations on file. Lines, Drains, and Airways Type Details Placement Removal Epidural 02/25/24; 1225 (crea herminia via procedure documentation); Catheter intact; 02/25/24; 1725 02/25/24 1225 by Bowen Osullivan MD 02/25/24 1725 by Chino Tucker RN documented in this encounter Social History Tobacco Use Types Packs/Day Years Used Date Smoking Tobacco: Every Day Cigarettes Smokeless Tobacco: Current Comments:vapes Alcohol Use Standard Drinks/Week Comments No 0 (1 standard drink = 0.6 oz pur e alcohol) [facility] Utilities Answer Date Recorded In the past 12 months has th e electric, gas, oil, or water company threatened to shut off services in your [...] any time in the past 12 m [facility], were you homeless or living in a senior living (including now)? No 02/26/2024 IPV Inpatient Questions Answer Date Recorded Does Anyone Try to Keep You From Having Contact with Others or Doing Things Outside Your Home? yes 02/27/2024 Feels Threatened by Someone yes 02/17 Feels Unsafe at Home or Work/School yes 02/27/2024 Physical Signs of Abuse Present yes 02/27/2024 Comments Yes Sex and Gender Information Value Date Recorded Sex Assigned at Not on file Gender Identity Not on file Sexual Orientation Not on file documented as of this encounter OR Notes * Anesthesia Postprocedure Evaluation - Korey Moraes MD - 02/29/2024 1:13 PM EST Department of Anesthesiology OB Post-procedure Note Patient: Samreen Martinez Procedure Summary Date: 02/25/24 Room / Location: Anesthesia Start: Anesthesia Stop: Procedure: Labor Analgesia (proc) Diagnosis: Scheduled Providers: Responsible Provider: Anesthesia Type: epidural ASA Status: 3 All Anesthesia Providers: No anesthesia staff entered. Most Recent Vitals: 02/29/24 0754 BP: 114/57 Pulse: 82 Resp: 18 Temp: SpO2: 98% Patient Location: BP Level of Consciousness: Awake and Alert Pain Management: Satisfactory Analgesia PONV: None Cardiovascular Status: At Baseline Respiratory Status: At Baseline Postoperative Fluid Status: Intravascular EUvolemia Possible Anesthesia/DeliveryComplications: NONE at time of evaluation Possible Anesthetic Complications: NONE apparent at time of evaluation Final Primary Anesthesia Type: Epidural Dural Puncture Technique Comments: Patient ambulating/urinating, is without headache, paresthesias, fevers/chills, back pain. No complaints at this time. Patient advised to call with any questions or concerns. Korey Moraes MD 02/29/2024 * Anesthesia Procedure Notes - Bowen Osullivan MD - 02/25/2024 12:49 PM EST Associated Order(s): Neuraxial for Labor Only Procedure: Labor Analgesia Neuraxial Block Labor Analgesia Type: DPE The patient was greeted. The sedation plan, its benefits, risks and alternatives were discussed with the patient. The patient has consented to the procedure. The medical history and chart were reviewed. The timeout was performed. Start time: 02/25/2024 12:25 PM End time: 02/25/2024 12:45 PM Patient Location: [facility] Patient Prep Position: Sitting Prep: Patient Draped, Hand Hygiene, Hat, Mask, Sterile Gloves and Chlorhexidine Injection technique: continuous Procedure Technique Level of needle insertion: L3-4 Needle approach: midline Needle Type: Tuohy and Sprotte Gauge: 25 and 17 Needle length: 3.5 in and 3.5 in Needle insertion depth when SUGAR achieved: 9 cm Technique for Loss of Resistance: SUGAR saline A 19G Flex-Tip epidural catheter was inserted into the space Catheter at skin depth: 15 cm Dressing/Secured with: Chlorhexidine Tegaderm and Tegaderm Number of attempts: 1 Test dose Lidocaine 1.5% w/Epinephrine 1:2000,000 3mL Events/Notes Events: None Additional Notes: Pt very uncomfortable with contractions but able to sit still enough for epiduralplacement. Encountered os deep but able to get SUGAR with redirection to the left. SUGAR saline at 9cm.DPE with return of clear CSF. Catheter threaded easily but past 20cm pt complaining of L sided paresthesia. Catheter ultimately taped at 15cm. Aspiration negative. Test dose negative. Gave bolus of 10cc off bag after epidural placement and then hooked up to pump. When leaving the room, pt objectively and subjectively much more comfortable but with L > R numbness. Repositioned pt in slight R lateral decub position. Performed by: Resident/ASSEMBLY LINE ROBOT OPERATOR: Bowen Osullivan MD Attending Physician: Mary Ann Bauer MD Authorized by: Mary Ann Bauer MD ~~~~~~~~~~~~~~~~~~~~~~~~~~~~~~~~~~~~~~~~~~~~~~~~~~~~~~~~~~~~ * Anesthesia Preprocedure Evaluation - Bowen Osullivan MD - 02/25/2024 12:07 PM EST Pre-Anesthesia Evaluation for: Samreen Martinez a 23 y.o. female. Patient Active Problem List Diagnosis Date Noted *Encounter for induction of labor 02/24/2024 Myofascial pain syndrome 01/17/2020 Kienb??ck's disease 10/05/2015 AIDAN (juvenile idiopathic arthritis) 09/02/2015 s/p left knee Benito osteotomy and lateral release 09/08/14 ([place]) 09/08/2014 Recurrent dislocation of right patella - s/p Benito osteotomy, medial imbrication, lateral release (02/10/14) 02/10/2014 Knee pain, right 01/12/2012 R knee arthroscopy, microfracture & medial patellar realignment procedure 02/12 [place] 09/20/2011 Effusion of knee joint 08/16/2010 Effusion [...] TO TOES) performed by BRENDAN NAVARRO at [facility] MAIN OR PRO APPLICATION LONG LEG CAST THIGH-TOE 12/16/2010 CAST APPLICATION, LONG LEG (THIGH TO TOES) performed by JENNIFER ZHANG at [facility] MAIN OR PRO ARTHROSCOPY KNEE REMOVAL LOOSE/FOREIGN BODY 12/16/2010 ARTHROSCOPY KNEE REMOVE LOOSE BODY performed by JENNIFER ZHANG at [facility] MAIN OR PRO ARTHROSCOPY KNEE REMOVAL LOOSE/FOREIGN BODY 02/13/2012 ARTHROSCOPY KNEE REMOVE LOOSE BODY performed by JENNIFER ZHANG at [facility] MAIN OR PRO ARTHROSCOPY KNEE REMOVAL LOOSE/FOREIGN BODY Right 02/10/2014 ARTHROSCOPY KNEE REMOVE LOOSE BODY performed by Jennifer Zhang MD at [facility] OR PRO ARTHROTOMY/EXPLORE/TREAT KNEE JOINT 02/13/2012 ARTHROTOMY, KNEE WITH EXPLORATION performed by JENNIFER ZHANG at [facility] OR PRO DRAIN/INJECT LARGE JOINT/BURSA 04/05/2011 ARTHROCENTESIS, ASPIRATION OR INJECTION, MAJOR JOINT OR BURSA, KNEE performed by JENNIFER ZHANG at [facility] MAIN OR PRO KNEE SCOPE, ABRASN ARTHROPLASTY 12/16/2010 ARTHROSCOPY KNEE, MULTIPLE DRILLING, MICROFRACTURE performed by JENNIFER ZHANG at [facility] OR PRO KNEE SCOPE, ABRASN ARTHROPLASTY 02/13/2012 ARTHROSCOPY KNEE, MULTIPLE DRILLING, MICROFRACTURE performed by JENNIFER ZHANG at [facility] MAIN OR PRO KNEE SCOPE, DIAGNOSTIC 08/31/2010 ARTHROSCOPY KNEE, DIAGNOSTIC performed by BRENDAN NAVARRO at [facility] MAIN OR PRO KNEE SCOPE, DIAGNOSTIC Left 09/08/2014 ARTHROSCOPY KNEE, DIAGNOSTIC performed by Jennifer Zhang MD at [facility] OR [facility] KNEE SCOPE, DRILL OSTE DISS+INT FIX 08/31/2010 ARTHROSCOPY KNEE, DRILLING & FIXATION OF OCD performed by BRENDAN NAVARRO at [facility] MAIN OR PRO KNEE SCOPE, PART SYNOVECT 04/05/2011 ARTHROSCOPY KNEE SYNOVECTOMY LIMITED performed by JENNIFER ZHANG at [facility] OR PRO KNEE SCOPE, SHAVE ARTICULAR CART 08/31/2010 ARTHROSCOPY KNEE CHONDROPLASTY performed by BRENDAN NAVARRO at [facility] MAIN OR PRO OSTEOTOMY TIBIA Right 02/10/2014 OSTEOTOMY, TIBIA performed by Jennifer Zhang MD at [facility] MAIN OR PRO OSTEOTOMY TIBIA Left 09/08/2014 OSTEOTOMY, TIBIA performed by Jennifer Zhang MD at [facility] MAIN OR PRO RECONSTRUCTION DISLOC PATELLA W/EXTENSOR REALIGN &/OR MUSCLE REL 12/16/2010 PATELLAR REALIGNMENT performed by BRENDAN NAVARRO at [facility] MAIN OR PRO RECONSTRUCTION DISLOCATING PATELLA 02/13/2012 REPAIR DISLOCATING PATELLA performed by JENNIFER ZHANG at [facility] MAIN OR PRO RECONSTRUCTION DISLOCATING PATELLA Right 02/10/2014 REPAIR DISLOCATING PATELLA performed by Jennifer Zhang MD at [facility] OR TONSILLECTOMY AND ADENOIDECTOMY Social History Tobacco Use Smoking status: Every Day Types: Cigarettes Smokeless tobacco: Current Tobacco comments: vapes Substance Use Topics Alcohol use: No Social History Substance and Sexual Activity Drug Use No Allergies Allergen Reactions Latex Hives Latex, Natural Rubber Amoxicillin Itching and Angioedema Diclofenac Nausea and hypertension Sulfa (Sulfonamide Antibiotics) Rash Medications: MAR and/or home medications have been reviewed. Physical Exam: Preprocedure Vitals Current as of 02/24/24 2221 No BP, pulse, respiration, SpO2, or temperature recorded. Height: Weight: BMI: IBW: Anesthesia Physical Exam Last Filed Perioperative Cognitive Screening None Anesthesia Plan: ASA 3 epidural, Preprocedure anesthesia Note 23 y.o. female at 38w6d here for IOL. Pt is planning TOLAC- 1st was , 2nd was C/S for twin malpresentation. Patient is undecided about an epidural but is open to having one placed if needed OB anesthesia hx: patient reports 12 years ago her initial epidural didn't work and needed to be replaced and she delivered before it was fully working, she does not remember if it was difficult to place. For her C/S pt says there were many attempts and ultimately is not sure whether she had a spinal or an epidural but was awake for the C/S. Significant medial hx: HTN, patient reports she broke her back in the middle but did not have surgery Anesthesia hx: Denies prior GA, denies family hx anesthesia complications Bleeding Disorder: denies Asthma: no HTN: yes Prior back surgeries/pathology: yes LE numbness/weakness: denies No results for input(s): WBC, HGB, HCT, PLATELET in the last 168 hours. Type & Screen: Lab Results Component Value Date ABORH A POSITIVE 02/09/2024 Allergies:Latex; Latex, natural rubber; Amoxicillin; Diclofenac; and Sulfa (sulfonamide antibiotics) ASSESSMENT & PLAN: Discussed potential need for labor analgesia and/or anesthesia to possibly include epidural, spinal, CSE, and anesthesia for (which includes all of the above with the addition of general anesthesia). No contraindication to a neuraxial technique. Risk, benefits discussed; questions answered. Consentobtained and placed in patient's chart. Ros Bedolla MD [employer]plane Rigger, CA1 Pager # [phone] Region - Other Informed Consent: Anesthetic plan and risks discussed with patient. Plan discussed with attending. Anesthesia Screening documented in this encounter Plan of Treatment Not on file documented as of this encounter Procedures Procedure Name Priority Date/Time Associated Diagnosis Comments [id number] Routine 02/25/2024 12:49 PM EST documented in this encounter Results * [id number] (02/25/2024 12:49 PM EST) Narrative Mary Ann Bauer MD - 02/25/2024 12:49 PM EST Bowen Osullivan MD ? 02/25/2024 12:53 PM Procedure: ?? Labor Analgesia Neuraxial Block Labor Analgesia Type: DPE The patient was greeted. The sedation plan, its benefits, risks and alternatives were discussed with the patient. ??The patient has consented to the procedure. ??The medical history and chart were reviewed. ??The timeout was performed. Start time: 02/25/2024 12:25 PM End time: 02/25/2024 12:45 PM Patient [facility] [place] Patient Prep Position: Sitting Prep: Patient Draped, Hand Hygiene, Hat, Mask, Sterile Gloves and Chlorhexidine Injection technique: continuous Procedure Technique Level of needle insertion: L3-4 Needle approach: midline Needle Type: Tuohy and Sprotte Gauge: 25 and 17 Needle length: 3.5 in and 3.5 in Needle insertion depth when SUGAR achieved: 9 cm Technique for Loss of Resistance: SUGAR saline A 19G Flex-Tip epidural catheter was inserted into the space Catheter at skin depth: 15 cm Dressing/Secured with: Chlorhexidine Tegaderm and Tegaderm Number of attempts: 1 Test dose Lidocaine 1.5% w/Epinephrine 1:2000,000 3mL Events/Notes Events: ??None Additional Notes: ??Pt very uncomfortable with contractions but able to sit still enough for epidural placement. Encountered os deep but able to get SUGAR with redirection to the left. SUGAR saline at 9cm. DPE with return of clear CSF. Catheter threaded easily but past 20cm pt complaining of L sided paresthesia. Catheter ultimately taped at 15cm. Aspiration negative. Test dose negative. Gave bolus of 10cc off bag after epidural placement and then hooked up to pump. When leaving the room, pt objectively and subjectively much more comfortable but with L > R numbness. Repositioned pt in slight R lateral decub position. Performed by: ?? Resident/ASSEMBLY LINE ROBOT OPERATOR: ? Bowen Osullivan MD ?? Attending Physician: ? Mary Ann Bauer MD Authorized by: Mary Ann Bauer MD ?? ~~~~~~~~~~~~~~~~~~~~~~~~~~~~~~~~~~~~~~~~~~~~~~~~~~~~~~~~~~~~ Mary Ann Bauer MD [facility] documented in this encounter Visit Diagnoses Not on filedocumented in this encounter Care Teams Technology Officer Relationship Specialty Start Date End Date None None PCP - General 12/22/23 documented as of this encounter
--- OUTSIDE RECORDS SUMMARY | 2024-05-05 10:43 | XMS_ITS | Encounter Summary ---
Author Organization Formerly [facility] Address [facility] [place] [address] Care Team Providers Care Coal Bagger Name Role Phone None Primary Care Provider Unavailabl e Encounter Details Date Type Department Care Team (Latest Contact Info) Description 02/09/2024 1:54 PM EST - 02/09/2024 11:59 PM [facility] Hospital [place] [id number] Ros Earl MD [facility] OBSTETRICS [place] [address] BMI 45.0-49.9, adult; History of delivery Discharge Disposition: Home Social History Tobacco Use [...] Sig Dispensed Refills Start Date End Date 95-iron rty-sennm-bwo ( + DHA) 28 mg iron-800 mcg-200 mg Combo Pack Take by oral route. pantoprazole EC (Protonix) [address] tablet Take 1 tablet by mouth Daily at Noon. 01/05/2024 Blood-Glucose Meter MiscIndications:Elevated glucose tolerance test 1 each by Misc.(Non-Drug; Combo Route) route as needed. 1 each 02/09/2024 02/26/2024 lancets MiscIndications:Elevated glucose tolerance test 1 each by Misc.(Non-Drug; Combo Route) route 4 times daily. 100 each 3 02/09/2024 02/26/2024 blood sugar diagnostic strips StripIndications:Elevate d glucose tolerance test 1 strip by Other route 4 times daily. Fasting and one hour after each meal. 100 each 3 02/09/2024 02/26/2024 documented as of this encounter Plan of Treatment Not on file documented as of this encounter Procedures Procedure Name Priority Date/Time Associated Diagnosis Comments US OB FOLLOW UP Routine 02/09/2024 2:33 PM EST BMI 45.0-49.9, adult History of delivery documented in this encounter Results * US OB Follow Up (02/09/2024 2:33 PM EST) Rerecipe WORKSTATION ID [id number] DH RAD Anatomical Region Laterality Modality Pelvis, Abdomen [...] is increased, consistent with Mild Polyhydramnios. BPP 8/8. Anatomical survey is limited due to the late gestational age. Thank you for letting us participate in the care of this patient. If you are a health care provider and have any questions regarding this report, please contact the number above. For patients who have questions, please contact the health pharmacist critical care that requested your imaging first. ? Bucky Pizarro, Staff Physician Electronically Signed Final Report ?? 02/09/2024 02:42 pm Narrative 02/09/2024 2:42 PM EST OBSTETRICS REPORT ?(Signed Final 02/09/2024 02:42 pm) PATIENT INFO: ID #: ? [id number] ?: ??[birth year] (23 yrs)(F) Name: ? ANDREA Michelle ? Visit Date: 02/09/2024 02:30 pm ? DANYA PERFORMED BY: Performed By: ? Howard COPELAND, ??Indira Attending: ?Bucky Pizarro MD Referred By: ?ROS EARL Location: ? [place] SERVICE(S) PROVIDED: UOBFOL - Efw - Growth ??- [place] - [id number] ?[id number] [facility] - Biophysical Profile (without NST) - [id number] ? [id number] INDICATIONS: 36 weeks gestation of ?Z3A.36 desies [...] - 87 FL/AC: ? 21.1 ??% ? 20 - Est. FW: ?2936 ??gm ?6 lb 8 [...] 02/09/2024 02:42 pm) PATIENT INFO: ID #: [id number] : [birth year] (23 yrs)(F) Name: ANDREA Michelle Visit Date: 02/09/2024 02:30 pm THERRIAULT PERFORMED BY: Performed By: Indira Lawrence RDMS Attending: Bucky Pizarro MD Referred By: ROS EARL Location: [facility] SERVICE(S) PROVIDED: UOBFOL - Efw - Growth - [place] - [id number] UBPP - Biophysical Profile (without NST) - [id number] INDICATIONS: 36 weeks gestation of Z3A.36 desies [...] % 71 - 87 FL/AC: 21.1 % - 24 Est. FW: 2936 gm 6 [...] who have questions, please contact the health pharmacist critical care that requested your imaging first. Bucky Pizarro, Staff Physician Electronically Signed Final Report 02/09/2024 02:42 pm Ros Earl MD IMG US OB ORDERABL ES documented in this encounter Visit Diagnoses Diagnosis BMI 45.0-49.9, adult Body Mass Index 45.0-49.9, adult History of delivery Other postprocedural status documented in this encounter Care Teams Coal Bagger Relationship Specialty Start Date End Date None None PCP - General 12/22/23 documented as of this encounter
--- OUTSIDE RECORDS SUMMARY | 2024-05-05 10:43 | XMS_ITS | Encounter Summary ---
Author Organization Formerly [facility] Address [facility] [place] [address] Care Team Providers Care Stamp Press Operator Name Role Phone None Primary Care Provider Unavailabl e Encounter Details Date Type Department Care Team (Late st Contact Info) Description 02/09/2024 Orders Only Obstetrics [place] [address] Ros Ayala MD [facility] [address] OBSTETRICS [place] [address] Elevated glucose tolerance test Social History Tobacco Use Types Packs/Day Years [...] as of this encounter Visit Diagnoses Diagnosis Elevated glucose tolerance test Impaired glucose tolerance test documented in this encounter Care Teams Stamp Press Operator Relationship Specialty Start Date End Date None None PCP - General 12/22/23 documented as of this encounter
--- OUTSIDE RECORDS SUMMARY | 2024-05-05 10:43 | XMS_ITS | Encounter Summary ---
Author Organization [facility] Address [facility] [place] [address] Care Team Providers Care Extracorporeal Circulation Specialist Name Role Phone None Primary Care Provider Unavailabl e Encounter Details Date Type Department Care Team (Late st Contact Info) Description 02/24/2024 11:59 PM EST [place] [phone] Ros Bedolla MD [facility] DR [place] [address] Anesthesia Record Procedure Summary Procedure Name Responsible Anesthesiologist Anesthesia Start Time Anesthesia Stop Time Anesthesia Labor Consult Events No events on file. Meds * Agents No agents on file. * Blood No blood administrations on file. Lines, Drains, and Airways No LDAs on file. documented in this encounter Social History Tobacco Use Types Packs/Day Years Used Date Smoking Tobacco: Every Day Cigarettes Smokeless Tobacco: Current Comments:vapes Alcohol Use Standard Drinks/Week Comments No 0 (1 standard drink = 0.6 oz pur e alcohol) [facility] Utilities Answer Date Recorded In the past 12 months has [employer] gas, oil, or water [employer] threatened to shut off services in your [...] any time in the past 12 m [facility], were you homeless or living in a group home (including now)? No 02/26/2024 DH IPV Inpatient Questions Answer Date Recorded Does [...] of this encounter OR Notes * Anesthesia Preprocedure Evaluation - Ros Bedolla MD - 02/24/2024 10:21 PM EST Pre-Anesthesia Evaluation for: Samreen Martinez a 23 y.o. female. Patient Active Problem List Diagnosis Date Noted *Encounter for induction of labor 02/24/2024 Myofascial pain syndrome 01/17/2020 Kienb??ck's disease 10/05/2015 AIDAN (juvenile idiopathic arthritis) 09/02/2015 s/p left knee Benito osteotomy and lateral release 09/08/14 ([place]) 09/08/2014 Recurrent dislocation of right patella - s/p Benito osteotomy, medial imbrication, lateral release (02/10/14) 02/10/2014 Knee pain, right 01/12/2012 R knee arthroscopy, microfracture & medial patellar realignment procedure 02/12 Gunter 09/20/2011 Effusion of knee joint 08/16/2010 Effusion [...] TO TOES) performed by BRENDAN NAVARRO at [facility] MAIN OR PRO APPLICATION LONG LEG CAST THIGH-TOE 12/16/2010 CAST APPLICATION, LONG LEG (THIGH TO TOES) performed by BENITO GUNTER at [facility] MAIN OR PRO ARTHROSCOPY KNEE REMOVAL LOOSE/FOREIGN BODY 12/16/2010 ARTHROSCOPY KNEE REMOVE LOOSE BODY performed by BENITO GUNTER at [facility] MAIN OR PRO ARTHROSCOPY KNEE REMOVAL LOOSE/FOREIGN BODY 02/13/2012 ARTHROSCOPY KNEE REMOVE LOOSE BODY performed by BENITO GUNTER at [facility] MAIN OR PRO ARTHROSCOPY KNEE REMOVAL LOOSE/FOREIGN BODY Right 02/10/2014 ARTHROSCOPY KNEE REMOVE LOOSE BODY performed by Benito Gunter MD at [facility] OR PRO ARTHROTOMY/EXPLORE/TREAT KNEE JOINT 02/13/2012 ARTHROTOMY, KNEE WITH EXPLORATION performed by BENITO GUNTER at [facility] OR PRO DRAIN/INJECT LARGE JOINT/BURSA 04/05/2011 ARTHROCENTESIS, ASPIRATION OR INJECTION, MAJOR JOINT OR BURSA, KNEE performed by BENITO GUNTER at [facility] MAIN OR PRO KNEE SCOPE, ABRASN ARTHROPLASTY 12/16/2010 ARTHROSCOPY KNEE, MULTIPLE DRILLING, MICROFRACTURE performed by BENITO GUNTER at [facility] MAIN OR PRO KNEE SCOPE, ABRASN ARTHROPLASTY 02/13/2012 ARTHROSCOPY KNEE, MULTIPLE DRILLING, MICROFRACTURE performed by BENITO GUNTER at [facility] MAIN OR PRO KNEE SCOPE, DIAGNOSTIC 08/31/2010 ARTHROSCOPY KNEE, DIAGNOSTIC performed by BRENDAN NAVARRO at [facility] MAIN OR PRO KNEE SCOPE, DIAGNOSTIC Left 09/08/2014 ARTHROSCOPY KNEE, DIAGNOSTIC performed by Benito Gunter MD at [facility] OR [facility] KNEE SCOPE, DRILL OSTE DISS+INT FIX 08/31/2010 ARTHROSCOPY KNEE, DRILLING & FIXATION OF OCD performed by BRENDAN NAVARRO at [facility] OR PRO KNEE SCOPE, PART SYNOVECT 04/05/2011 ARTHROSCOPY KNEE SYNOVECTOMY LIMITED performed by BENITO GUNTER at [facility] MAIN OR PRO KNEE SCOPE, SHAVE ARTICULAR CART 08/31/2010 ARTHROSCOPY KNEE CHONDROPLASTY performed by BRENDAN NAVARRO at [facility] MAIN OR PRO OSTEOTOMY TIBIA Right 02/10/2014 OSTEOTOMY, TIBIA performed by Benito Gunter MD at [facility] MAIN OR PRO OSTEOTOMY TIBIA Left 09/08/2014 OSTEOTOMY, TIBIA performed by Benito Gunter MD at [facility] MAIN OR PRO RECONSTRUCTION DISLOC PATELLA W/EXTENSOR REALIGN &/OR MUSCLE REL 12/16/2010 PATELLAR REALIGNMENT performed by BRENDAN NAVARRO at [facility] MAIN OR PRO RECONSTRUCTION DISLOCATING PATELLA 02/13/2012 REPAIR DISLOCATING PATELLA performed by BENITO GUNTER at [facility] MAIN OR PRO RECONSTRUCTION DISLOCATING PATELLA Right 02/10/2014 REPAIR DISLOCATING PATELLA performed by Benito Gunter MD at [facility] MAIN OR TONSILLECTOMY AND ADENOIDECTOMY Social History Tobacco [...] Cognitive Screening None Anesthesia Plan: ASA 3 Preprocedure anesthesia Note 23 y.o. female at [...] placed in patient's chart. Ros Bedolla MD Foreign Languages Department Chair, CA1 Pager # [phone] Informed Consent: Anesthetic plan and risks discussed with patient. Plan discussed with attending. Anesthesia Screening documented in this encounter Plan of Treatment Not on file documented as of this encounter Visit Diagnoses Not on filedocumented in this encounter Care Teams Extracorporeal Circulation Specialist Relationship Specialty Start Date End Date None None PCP - General 12/22/23 documented as of this encounter
--- OUTSIDE RECORDS SUMMARY | 2024-05-05 10:43 | XMS_ITS | Encounter Summary ---
Author [facility] [place] [address] Care Team Providers Care Ancillary Services Manager Therapy Name Role Phone None Primary Care Provider Unavailabl e Encounter Details Date Type Department Care Team (Latest Contact Info) Description 02/09/2024 3:35 PM EST Laboratory Appointment Lab [address] [place] [phone] History of delivery Social History Tobacco Use [...] Procedure Name Priority Date/Time Associated Diagnosis Comments SCAN, PERIPHERAL BLOOD Routine 02/09/2024 4:35 PM EST History of delivery CBC (WITH DIFF) Routine 02/09/2024 4:35 PM EST History of delivery TYPE AND SCREEN ([facility]) Routine 02/09/2024 4:35 PM EST History of delivery documented in this encounter Results * Scan, Peripheral Blood (02/09/2024 4:35 PM EST) RBC Morphology Abnormal 02/09/2024 5:40 PM EST [facility] Platelet Estimate Normal Normal 024 5:40 PM [facility] Microcyte 1-5 /HPF 02/09/2024 5:40 PM [facility] Hypochromasia Slight 02/09/2024 5:40 PM [facility] Blood VENOUS BLOOD SPECIMEN / Unknown Venipuncture / Unknown 02/09/2024 4:35 PM EST 02/09/2024 4:36 PM EST Ros Ayala MD HEMATOLOGY ORDERAB LES [facility] [place] [address] * (ABNORMAL) CBC (with Diff) (02/09/2024 4:35 PM EST) White Blood Cell 11.35(H) 4.00 - 9.50 x10(3)/mc L 02/09/2024 5:40 PM [facility] Red Blood Cell 4.44 4.00 - 5.21 x10(6)/mc L 02/09/2024 5:40 PM [facility] Hemoglobin 10.2(L) 11.7 - 15.5 g/dL 02/09/2024 5:40 PM [facility] Hematocrit 33.2(L) 35.7 - 45.8 % 02/09/2024 5:40 PM [facility] Mean Cell Volume 74.8(L) 82.6 - 94.4 fL 02/09/2024 5:40 PM [facility] Mean Cell Hemoglobin 23.0(L) 27.1 - 32.0 pg 02/09/2024 5:40 PM [facility] Mean Cell Hemoglobin Concentration 30.7(L) 31.7 - 35.0 g/dL 02/09/2024 5:40 PM [facility] Platelet 323 145 - 357 x10(3)/mc L 02/09/2024 5:40 PM [facility] Mean Platelet Volume 10.8 7.6 - 12.9 fL 02/09/2024 5:40 PM [facility] RDW Standard Deviation 44.1 37.0 - 46.0 fL 02/09/2024 5:40 PM [facility] RDW coefficient of variation 16.3(H) 11.5 - 14.1 % 02/09/2024 5:40 PM [facility] NRBC% auto 0.0 % 02/09/2024 5:40 PM [facility] NRBC Absolute <0.01 <0.01 x10(3)/mc L 02/09/2024 5:40 PM [facility] Neutrophil % 67.7 % 02/09/2024 5:40 PM [facility] Neutrophil Absolute (ANC) - Automated 7.69(H) 1.70 - 6.10 x10(3)/mc L 02/09/2024 5:40 PM [facility] Lymph % 22.3 % 02/09/2024 5:40 PM [facility] Lymph Absolute 2.53 0.90 - 3.20 x10(3)/mc L 02/09/2024 5:40 PM [facility] Monocyte % 8.0 % 02/09/2024 5:40 PM [facility] Monocyte Absolute 0.91(H) 0.30 - 0.90 x10(3)/mc L 02/09/2024 5:40 PM [facility] Eos % 0.4 % 02/09/2024 5:40 PM [facility] Eos Absolute 0.04 0.00 - 0.40 x10(3)/mc L 02/09/2024 5:40 PM [facility] Basophil % 0.2 % 02/09/2024 5:40 PM [facility] Baso Absolute <0.04 0.00 - 0.10 x10(3)/mc L 02/09/2024 5:40 PM [facility] Immature Gran % 1.4 % 5:40 PM EST [facility] Immature Gran Absolute 0.16(H) 0.00 - 0.04 x10(3)/mc L 02/09/2024 5:40 PM EST [facility] Blood VENOUS BLOOD SPECIMEN / Unknown Venipuncture / Unknown 02/09/2024 4:35 PM EST 02/09/2024 4:36 PM EST Ros Ayala MD HEMATOLOGY ORDERAB LES [facility] [place] [address] * Type and screen ([facility]) (02/09/2024 4:35 PM EST) ABORH Type A POSITIVE 02/09/2024 6:19 PM EST [facility] PATIENT HISTORY Unneccessary 02/09/2024 6:19 PM EST [facility] LABOR[facility]ORY Expires at [id number] on: 02-09-2024 02/09/2024 6:19 PM EST [facility] ANTIBODY SCREEN AUTOMATED Negative 02/09/2024 6:19 PM EST [facility] B[facility]OD [facility] LAB[facility] T&S only valid at [facility] 02/09/2024 6:19 PM EST [facility] Blood VENOUS BLOOD SPECIMEN / Unknown Venipuncture / Unknown 02/09/2024 4:35 PM EST 02/09/2024 4:36 PM EST Narrative [facility] B[facility]OD [facility] LABOR[facility] - 02/09/2024 6:19 PM EST This Type and Screen result is only valid at the [facility] Ros Ayala MD BLOOD BANK LAB ORD ERABLES Performing Organization Address City/[facility]/ZIP Co de Phone Number [facility] BLOOD [facility] [place] [address] documented in this encounter Visit Diagnoses Diagnosis History of delivery Other postprocedural status documented in this encounter Care Teams Ancillary Services Manager Therapy Relationship Specialty Start Date End Date None None PCP - General 12/22/23 documented as of this encounter
--- OUTSIDE RECORDS SUMMARY | 2024-05-05 10:43 | XMS_ITS | Encounter Summary ---
Author Organization [facility] [place] [address] Care Team Providers Care Philosophy Specialist Name Role Phone None Primary Care Provider Unavailabl e Reason for Referral * Consultation (Urgent) - Closed Specialty Diagnoses / Procedures Referred By Jack sherman Referred To Contact Obstetrics and Gynecology Diagnoses Morbid (severe) obesity due to excess calories Supervision of other high risk pregnancies, unspecified trimester History of uterine scar from previous surgery detail morph SHEN Procedures US Requested Winsome Pugh MD [address] [place] [address] [place] [address] [facility] [employer] Super[employer] [address] [place] [address] Referral ID Status Reason Start Date Expiration Date V isits Requested Visits Authorized [id number] Closed Consult, Test & Treat PCP Updated and/or Approved 12/08/2023 06/06/2024 6 6 Encounter Details Date Type Department Care Team (Late st Contact Info) Description 12/12/2023 Transcribe Orders eDH Incoming Referrals [phone] Winsome Pugh MD [address] [place] [address] [address] [place], [place] [id number] Morbid (severe) obesity due to excess calories; [...] surgery documented in this encounter Care Teams Philosophy Specialist Relationship Specialty Start Date End Date None None PCP - General 12/12/23 12/21/23 documented as of this encounter
--- OUTSIDE RECORDS SUMMARY | 2024-05-05 10:43 | XMS_ITS | Encounter Summary ---
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 Name Role Phone None Primary Care Provider Unavailabl e Reason for Visit * Auth/Cert (Routine) Specialty Diagnoses / Procedures Referred By Jack t Referred To Contact Diagnoses Encounter for induction of labor Procedures VAGINAL DELIVERY Brianda Petersen MD [facility] [place] [address] [facility] Referral ID Status Reason Start Date Expiration Date Visits Re quested Visits Authorized [id number] 1 1 Encounter Details Date Type Department Care Team (Latest Contact Info) Description 02/24/2024 8:59 PM EST - 02/26/2024 4:52 PM [facility] [place] [address] Brianda Petersen MD [facility] [place] [address] Discharge Disposition: Home Social History Tobacco Use Types Packs/Day Years Used Date Smoking Tobacco: Every Day Cigarettes Smokeless Tobacco: Current Comments:vapes Alcohol Use Standard Drinks/Week Comments No 0 (1 standard drink = 0.6 oz pur e alcohol) [facility] Utilities Answer Date Recorded In the past 12 months has e electric, gas, oil, or water company [...] a senior living (including now)? No 02/26/2024 DH IPV Inpatient [...] Sign Reading Time Taken Comments Blood Pressure 133/71 02/26/2024 7:53 AM EST Pulse 87 02/26/2024 7:53 AM EST Temperature 36.7 ??C (98 ??F) 02/26/2024 7:53 AM EST Respiratory Rate 16 02/26/2024 7:53 AM EST Oxygen Saturation 98% 02/26/2024 7:53 AM EST Inhaled Oxygen Concentration - - Weight 127 kg (280 lb) 02/24/2024 10:04 PM EST Height 160 cm (5' 3) 02/24/2024 10:04 PM EST Body Mass Index 49.6 02/24/2024 10:04 PM EST documented in this encounter Discharge Summaries * Marija Hensley MD - 02/26/2024 3:55 PM EST Discharge Summary Patient Name: Samreen Martinez Patient Age: 23 y.o. Language: Cuban Race: White Ethnicity: Not nor Admit date: 02/24/2024 Discharge date and time: 02/26/24 10:28 AM Attending Physician: Brainda Petersen MD Discharge Physician: Ros Ayala MD Care Provider: [facility]) Referring Hospital: [facility]) Follow-up Recommendations for Providers: Day 3 PP blood pressure check on Tuesday 02/27 at 1:40pm ([facility]) Day 7 PP blood pressure check on Sunday 03/04 at 10:00am ([facility]) 6-week visit ([facility]) Inpatient Provider Contact Information: [facility] [employer] Department, Discharge Diagnoses (Hospital Problems) and Secondary Diagnoses (Chronic Problems) Active Hospital Problems Diagnosis Encounter for induction of labor Resolved Hospital Problems No resolved problems to display. 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 She is looking forward to her induction. She recently had an exam at [facility] and reports her cervix was 1-2cm dilated and very effaced. Her has been complicated by the following: -- hx of pLTCS at 37wk for breech twin gestation 11/2022 -- short interval -- late transfer of care from [facility] [place] to [facility] at 27 weeks and then seen by [facility] MFM at 29w5d -- BMI 51 -- vaping use in -- bipolar, anxiety, depression - not on meds -- mild poly on repeat growth at 36wk, 1hr gtt 124 -- hx of GDMA2 in prior -- hx of PPH after - offered blood but declined, received venofer instead -- hx of gHTN in both prior pregnancies Hospital Course Including Delivery and Events She was induced with pitocin, wayne balloon, and AROM. IUPC and FSE were needed for monitoring. Sheused epidural for anesthesia. She pushed once and delivered a viable male infant with apgars of 8 and 9 at 1 and 5 minutes. Inspection of the vagina and perineum revealed a right labial 1st degree laceration which was repaired in 1 layer with 1 pack of 3-0 vicryl suture. The sulci were examined andfound to be intact. No complications. Blood loss estimated at 135 ccs. She was in stable condition after delivery. The infant remained in stable condition at the bedside. (see delivery note for more information). Patient otherwise recovered well following delivery. She was found to have several isolated mild range blood pressures during her course was diagnosed with gestational hypertension after preeclampsia labs were drawn and returned normal. She remained asymptomatic for signs or symptoms of preeclampsia during her admission. She received a dose of Venofer for PPD#1 Hgb of 9.3. She had no symptoms of acute blood loss anemia by time of discharge. By the day of discharge, the patient was eating, drinking, voiding, and ambulating without difficulty. She was breast feeding the infant and desired an IUD for contraception (to be placed at her 6-wk visit). Her pain was controlled with PO pain medications and her lochia was mild. She denied fevers, chills, headache, nausea, vomiting, chest pain, shortness of breath, and leg pain. Patient was Rh positive, thus Rhogam was not indicated. She was discharged to home in good condition and good spirits on PPD #1 with follow-up as above. Delivery Information Information for the patient's : Tenishasarah, Baby Boy [[id number]] INFORMATION Baby Piter Martinez 02/25/2024 3:17 PM by Vaginal, Spontaneous Sex: male Gestational Age: 39w0d Measurements: Weight: 7 lb 1.9 oz (3230 g) APGARS One Minute Five Minutes Ten Minutes Totals: 8 9 Blood Loss: OB OR Quantitative Blood Loss Totals 02/25/24 0317 - 02/26/24 1028 Vaginal QBL Hospital Encounter 135 mL Total 135 Vital signs at Discharge: BP: 133/71, Heart Rate: 87, Temp: 36.7 ??C (98 ??F), Resp: 16, BMI (Calculated): 49.59 Height: 160 cm (5' 3) (02/24/242203) Weight: 127 kg (280 lb) (02/24/242203) Functional and Cognitive status: at baseline Important Studies and Lab Data: Labs: Last 3 wbc, hgb, hct plt Recent Labs 02/26/24 0814 02/24/24224002/09/24 1635 WBC 10.54* 8.79 11.35* HGB 9.3* 9.7* 10.2* HCT 29.9* 31.1* 33.2* PLATELET 312 335 323 Last 3 Lytes Recent Labs 02/26/24 0814 NA 138 K 4.1 CL 105 CO2 20* BUN 7* CREATININE 0.63* Last 3 LFTs Recent Labs 02/26/24 0814 AST 26 ALT 14 ALKPHOS 117* BILITOT 0.2 Recent Results (from the past 72 hour(s)) [...] Syphilis IgG/IgM Negative Negative Type and screen ([facility]) Result Value Ref Range ABORH Type A POSITIVE PATIENT HISTORY Found Expires at 2359 on: 02-27-2024 ANTIBODY SCREEN AUTOMATED Negative T&S only valid at [facility] LAB ABORH RECHECK (PATIENT HISTORY FOUND) Result Value Ref Range ABORH Recheck Progress Complete CBC (with Diff) Result Value Ref Range [...] Filtration Rate - Female 128 mL/min/1.73 m?? Studies: None Pending Studies and Lab Data: None Discharge Conditions/Prognosis: good Discharge to: Home Contraceptive Plans: IUD at 6wks Allergies at Discharge: Allergies Allergen Reactions Latex Hives Latex, Natural Rubber Amoxicillin Itching and Angioedema Diclofenac Nausea and hypertension Sulfa (Sulfonamide Antibiotics) Rash Immunizations Given this Hospitalization: Immunization History Administered Date(s) Administered Covid-19 Monovalent (Moderna Spikevax) 12yrs+ ([id number]) 08/15/2020, 09/18/2020 Influenza PF, Split 02/11/2014 Discharge Medications: Your Medications UNREVIEWED medications - Discuss With Your Provider Dose Details blood sugar diagnostic strips Strip 1 strip by Other route 4 times daily. Fasting and one hour after each meal. 1 each Quantity: 100 each Refills: 3 Blood-Glucose Meter Misc 1 each by Misc.(Non-Drug; Combo Route) route as needed. 1 each Quantity: 1 each Refills: 0 lancets Misc 1 each by Misc.(Non-Drug; Combo Route) route 4 times daily. 1 each Quantity: 100 each Refills: 3 pantoprazole EC [address] tablet Commonly known as: Protonix Take 1 tablet by mouth Daily at Noon. 1 tablet Refills: 0 + DHA 28 mg iron-800 mcg-200 mg Combo Pack Take by oral route. Generic drug: 95-iron mlg-ncptq-mzk Refills: 0 Smoking Status at Discharge: Social History Tobacco Use Smoking Status Every Day Types: Cigarettes Smokeless Tobacco Current Tobacco Comments vapes Instructions Given to Patient at Discharge: There are no outpatient Patient Instructions on file for this admission. 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 Stop exercising if you feel pain.?? https://www.[facility]og.org/Patients/FAQs/Ofjeryxc-Kfyay-Pexzkleos?IsMobileSet=false#ho w Nutrition: Your diet following the of [...] may have received from the OB Clinic. Depression occurs in a large percentage of [...] these signs or feel overwhelmed. Emergency Resources National Suicide Hotlines: or [place]: Call/Text [facility] Mental Health Crisis Hotline: Call/Text [facility] [facility] Mental Health Hotline: Call/Text Call your doctor or visual merchandising associate for: Seizure (call 911) Headache which isn't [...] up appointment. You may call the [facility] at any time for guidance or for answers to questions that come up prior to you follow up appointment. Your [facility] Provider can be reached during office hours at [facility] AFTER OFFICE HOURS for the horticultural farmworker or visual merchandising associate parking station attendant Post- Warning Signs Most women who give [...] given to the patient. * Patient Instructions* Marija Hensley MD - 02/26/2024 3:59 PM EST Follow-up Recommendations for Providers: Day 3 PP blood pressure check on Tuesday 02/27 at 1:40pm ([facility]) Day 7 PP blood pressure check on Sunday 03/04 at 10:00am ([facility]) 6-week visit ([facility]) * Attachments The following attachments cannot be sent through Care Everywhere. * Hemorrhoids (Cuban) documented in this encounter Medications at Time of Discharge Medication Sig Dispensed Refills Start Date End Date acetaminophen (Tylenol) 325 mg tablet Take 3 tablets by mouth every 6 hours as needed for Pain. 02/26/2024 ibuprofen (Advil) 600 mg tablet Take 1 tablet by mouth every 6 hours as needed for Pain. 02/26/2024 polyethylene glycoL (Miralax) 17 gram oral powder packet Take 17 g by mouth daily. 02/27/2024 95-iron vcl-wfrmz-ots ( + DHA) 28 mg iron-800 mcg-200 mg Combo Pack Take by oral route. pantoprazole EC (Protonix) [address] tablet Take 1 tablet by mouth Daily at Noon. 01/05/2024 documented as of this encounter Progress Notes * Elsa Pavon RN - 02/26/2024 3:50 PM EST OUTCOME EVALUATION NOTE: OUTCOME SUMMARY: Patient has been doing well today. Bonding with baby and well with some assistance. Mother has decided to also formula feed her as well as breastfeed. VSS and lochia remains WNL. Pain well controlled and managed per plan. Voiding well independently. Family-centered care provided. Venofer given today for Hemoglobin of 9.3 with education provided. PLAN MOVING FORWARD: Continue to assess VS, fundus, and lochia per orders and PRN. Treat pain as needed. Assist with and encourage bonding/rooming-in. INDIVIDUALIZED FALL PREVENTION INTERVENTIONS: Patient-specific fall risk [...] for sensory deficits provided, if applicable: [X] No CPG GOAL OUTCOME EVALUATION: * Marija Hensley MD - 02/26/2024 6:21 AM EST Vaginal Delivery Note Patient ID: Samreen Martinez is a 23 y.o. PPD#1 after at 39w1d gestation. Delivery uncomplicated. S: Samreen is feeling well this AM but is very tired after not being able to get much sleep overnight. Denies headache, vision changes, upper abdominal pain, new increased swelling. Pain: well controlled with oral medications, but still feeling pretty crampy this morning Diet: tolerating regular diet without n/v Ambulating: without assistance Voiding: without problems Lochia: minimal, less than a period O: Last value Range last 24 hrs Temperature Temp: 37.1 ??C (98.8 ??F) Temp: [36.4 ??C (97.6 ??F)-37.1 ??C (98.8 ??F)] Heart Rate Heart Rate: 97 Heart Rate: [72-155] Blood Pressure BP: 123/71 BP: (103-168)/(38-101) Respiratory Rate Resp: 16 Resp: [16-18] SpO2 SpO2: 97 % SpO2: [95 %-100 %] Intake/Output Summary (Last 24 hours) at 02/26/2024622 Last data filed at 02/25/20241999 Gross per 24 hour Intake 1457.57 ml Output 1135 ml Net 322.57 ml Exam: Gen: NAD Abdomen: soft, NT/ND, no rebound or guarding, fundus firm 2cm below umbilicus. Extremities: nontender, no edema. Labs: Recent Labs 02/24/24 2241 WBC 8.79 HGB 9.7* HCT 31.1* PLATELET 335 Assessment/Plan: Samreen Martinez is a 23 y.o. s/p , doing well this morning. General Care Pt meeting appropriate milestones. Continue routine care. Hgb 9.7 on admission. s/p QBL 135. Pt asymptomatic for acute blood loss anemia. Will offer IV Venofer for Hgb <10. Continue to monitor for signs or symptoms of worsening anemia. VTE prophylaxis: SCDs Immunization needs: Rh+, no Rhogam indicated. /pumping and supplementing with formula Contraception plan: 6wk IUD Other Maternal Concerns gHTN: BP: (123-134)/(69-71) over last 12 hours; she had isolated mild range blood pressures (diastolic in the 90s) on PPD#0. PreE labs were collected this AM and are pending. No treatable blood pressures in the last 24 hours. She will need PPD#3&7 BP checks Bipolar disorder, depression, anxiety: not on medications, mood stable. Encouraged rest and adequate sleep today. Anticipate discharge on PPD#1-2 pending stability of blood pressures and normal PreE labs. Will need PPD#3 and PPD#7 BP checks. She has been receiving her care through [facility] (Dr. Winsome Pugh). This patient was seen and discussed on rounds. Marija Hensley MD PGY-1 Obstetrics and Gynecology 02/26/24 * Elsa Pavon RN - 02/26/2024 4:51 AM EST Patient has been discharged from the unit in stable condition. IV has been removed and all discharge education has been completed. Patient verbalizes understanding. Discharge paperwork given to patient, who agrees to attend follow-up appointments. Patient ambulated off the unit without any signs of distress. * Sun Dee DO - 02/25/2024 3:02 PM EST Labor Progress Note Subjective: Samreen Martinez is resting with an epidural. Consents to exam. Objective: Temp: 36.4 ??C (97.6 ??F) 24 hr Temp: [36.4 ??C (97.6 ??F)-37.1 ??C (98.8 ??F)] Heart Rate: 93 24 hr Heart Rate: [72-155] BP: 113/78 24 hr BP: (103-168)/(49-101) Cervix Exam: Dilation: 7 (02/25/24 1453) Effacement: 90 Station: -1 Cervical Position: Anterior Consistency: Soft Rashid Score: 9 OB Examiner: Sun Carlos Heart Rate Interpretation: HR Assessment Method: external (02/25/24 1430) HR (beats/min): 120 HR Variability: moderate (amplitude range 6 to 25 bpm) HR Accelerations: present HR Decelerations: absent Contraction Frequency (Minutes): 2-3 Assessment & Plan This is Samreen Martinez, who is at 39w0d. Undergoing eIOL TOLAC (hx SVDx1, hx CS for breech twins). Making normal labor progress. MVUs 180. Labor Plans: Continue to titrate pitocin Additional Considerations: Reposition to right side, where most of cervix left. Heart Rate Assessment: Category 1, FSE placed on exam, IUPC GBS Management: None Required Hemorrhage Risk: High, T&S, [address], cHTN, no asthma Careful knee positioning d/t AIDAN and Kienbock's disease Hx gHTN prior pregnancies: BP: (103-168)/(49-101) Severely elevated bps were in the context of getting an epidural Consider 109/95 a first elevated in the context of resting with epidural @1345 Dx with gHTN and obtain labs if additional elevated after 1745 This patient was discussed with attending [facility] physician, Dr. Meléndez. Sun Dee DO, PGY-3 Obstetrics and Gynecology 02/25/24 * Teresa Servin MD - 02/25/2024 11:30 AM EST Brief Labor Progress Note 02/25/24 11:30 AM ID: Samreen Martinez is a 23 y.o. at 39w0d gestation here for eIOL and TOLAC. Feeling more pressure and discomfort, requesting exam. Temp: [36.4 ??C (97.6 ??F)-37 ??C (98.6 ??F)] Heart Rate: [80-90] Resp: [16] BP: (125-133)/(65-81) SpO2: [95 %-100 %] Heart Rate from SpO2: [91 bpm-95 bpm] Cervical Exam: 5/70/-1, soft, anterior Pitocin at 20 A/P: IUPC placed for better pitocin titration. Discussed pain management options, currently using IV pain meds, considering epidural. Cat I FHT Teresa Servin MD PGY2 Obstetrics/Gynecology 02/25/24 * Teresa Servin MD - 02/25/2024 9:36 AM EST Brief Labor Progress Note 02/25/24 9:36 AM ID: Samreen Martinez is a 23 y.o. at 39w0d gestation here for eIOL and TOLAC. Wayne balloon out now out, feeling more uncomfortable on 20 mu/min pitocin. No LOF or VB. Just ate breakfast. Temp: [36.4 ??C (97.6 ??F)-37 ??C (98.6 ??F)] Heart Rate: [84-90] Resp: [16] BP: (122-133)/(56-81) SpO2: [95 %-96 %] Heart Rate from SpO2: [91 bpm-95 bpm] Cervical Exam: 5/70/-3, soft, anterior, head well applied Pitocin at 20 A/P: AROM to copious clear/pink fluid at 0930. Cont pitocin. Discussed pain management options, doesn't want anything current but thinking about IV pain meds. Cat I FHT following AROM. Teresa Servin MD PGY2 Obstetrics/Gynecology 02/25/24 * Teresa Servin MD - 02/25/2024 6:56 AM EST Brief Labor Progress Note 02/25/24 7:01 AM ID: Samreen Martinez is a 23 y.o. at 39w0d gestation here for eIOL and TOLAC. Wayne balloon out when up to bathroom, was difficult to place overnight. Feeling pretty comfortableon 18 mu/min pitocin. No LOF or VB. Rested well overnight. Temp: [37 ??C (98.6 ??F)] Heart Rate: [86] Resp: [16] BP: (122)/(56) SpO2: [97 %] Heart Rate from SpO2: -- Cervical Exam: 3/50/-3, soft, posterior, ballotable Pitocin at 18 A/P: Discussed continuing to go up on the pitocin. Also discussed that AROM will be helpful once head is better applied to the cervix. Given that wayne balloon was challenging to place initially, and that she's only 3cm, second wayne balloon placed at 0650 for continued ripening. Cat I FHT. Plan to check in ~4 hours or sooner as needed. Teresa Servin MD PGY2 Obstetrics/Gynecology 02/25/24 * Curt Cadet MD - 02/25/2024 2:30 AM EST Brief Labor Progress Note ID: Samreen Martinez is a 23 y.o. at 39w0d gestation here for eIOL and TOLAC. Patient is comfortably sleeping. Feels slightly crampy when woken. FHT reviewed and baseline 125, moderate variability, accels present, no decels. Cat I tracing. Wayne balloon re-adjusted. Pitocin @6mU/min. Continue to titrate pitocin per protocol. Patient discussed with FLOR Diaz attending. Curt Cadet MD OBGYN PGY1 * Curt Cadet MD - 02/25/2024 12:38 AM EST Brief Progress Note ID: Samreen Martinez is a 23 y.o. at 39w0d gestation here for eIOL and TOLAC. Patient is doing well. FHT reviewed and baseline 120, moderate variability, accels present, no decels. SVE /-4. Wayne balloon placed and plan to start pitocin and titrate per protocol. Patient seen and discussed with FLOR Diaz attending. Curt Cadet MD OBGYN PGY1 documented in this encounter H&P Notes * Brianda Petersen MD - 02/24/2024 9:17 PM EST Obstetrical Term Admission Note Samreen Martinez is a 23 y.o. at 39w0d gestation with JOSELUIS 03/03/2024 by LMP (confirmed by 14 wk US) being admitted for elective induction of labor, TOLAC. HPI: Patient reports she is doing well. She is looking forward to her induction. She recently had an exam at [facility] and reports her cervix was 1-2cm dilated and very effaced. Her has been complicated by the following: -- hx of pLTCS at 37wk for breech twin gestation 11/2022 -- short interval -- late transfer of care from [facility] [place] to [facility] at 27 weeks and then seen by [facility] MFM at 29w5d -- BMI 51 -- vaping use in -- bipolar, anxiety, depression - not on meds -- mild poly on repeat growth at 36wk, 1hr gtt 124 -- hx of GDMA2 in prior -- hx of PPH after - offered blood but declined, received venofer instead -- hx of gHTN in both prior pregnancies Review of Systems: Negative to complete review except as noted in the HPI. Obstetric Review of Systems Total Weight Gain this : Not found. Movement: normal Contractions: none Leaking: None Bleeding: none Preeclampsia signs and symptoms: None Active Hospital Problems Diagnosis Encounter for induction of labor Resolved Hospital Problems No resolved problems to display. 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 AIDAN (juvenile [...] TO TOES) performed by BRENDAN NAVARRO at [facility] MAIN OR PRO APPLICATION LONG LEG CAST THIGH-TOE 12/16/2010 CAST APPLICATION, LONG LEG (THIGH TO TOES) performed by JENNIFER ZHANG at [facility] MAIN OR PRO ARTHROSCOPY KNEE REMOVAL LOOSE/FOREIGN BODY 12/16/2010 ARTHROSCOPY KNEE REMOVE LOOSE BODY performed by JENNIFER ZHANG at [facility] MAIN OR PRO ARTHROSCOPY KNEE REMOVAL LOOSE/FOREIGN BODY 02/13/2012 ARTHROSCOPY KNEE REMOVE LOOSE BODY performed by JENNIFER ZHANG at [facility] MAIN OR PRO ARTHROSCOPY KNEE REMOVAL LOOSE/FOREIGN BODY Right 02/10/2014 ARTHROSCOPY KNEE REMOVE LOOSE BODY performed by Jennifer Zhang MD at [facility] OR [facility] ARTHROTOMY/EXPLORE/TREAT KNEE JOINT 02/13/2012 ARTHROTOMY, KNEE WITH EXPLORATION performed by JENNIFER ZHANG at [facility] OR [facility] DRAIN/INJECT LARGE JOINT/BURSA 04/05/2011 ARTHROCENTESIS, ASPIRATION OR INJECTION, MAJOR JOINT OR BURSA, KNEE performed by JENNIFER ZHANG at [facility] MAIN OR PRO KNEE SCOPE, ABRASN ARTHROPLASTY 12/16/2010 ARTHROSCOPY KNEE, MULTIPLE DRILLING, MICROFRACTURE performed by JENNIFER ZHANG at [facility] OR PRO KNEE SCOPE, ABRASN ARTHROPLASTY 02/13/2012 ARTHROSCOPY KNEE, MULTIPLE DRILLING, MICROFRACTURE performed by JENNIFER ZHANG at [facility] OR [facility] KNEE SCOPE, DIAGNOSTIC 08/31/2010 ARTHROSCOPY KNEE, DIAGNOSTIC performed by BRENDAN NAVARRO at [facility] MAIN OR [facility] KNEE SCOPE, DIAGNOSTIC Left 09/08/2014 ARTHROSCOPY KNEE, DIAGNOSTIC performed by Jennifer Zhang MD at [facility] OR [facility] KNEE SCOPE, DRILL OSTE DISS+INT FIX 08/31/2010 ARTHROSCOPY KNEE, DRILLING & FIXATION OF OCD performed by BRENDAN NAVARRO at [facility] MAIN OR PRO KNEE SCOPE, PART SYNOVECT 04/05/2011 ARTHROSCOPY KNEE SYNOVECTOMY LIMITED performed by JENNIFER ZHANG at [facility] MAIN OR [facility] KNEE SCOPE, SHAVE ARTICULAR CART 08/31/2010 ARTHROSCOPY KNEE CHONDROPLASTY performed by BRENDAN NAVARRO at [facility] OR PRO OSTEOTOMY TIBIA Right 02/10/2014 OSTEOTOMY, TIBIA performed by Jennifer Zhang MD at [facility] OR PRO OSTEOTOMY TIBIA Left 09/08/2014 OSTEOTOMY, TIBIA performed by Jennifer Zhang MD at [facility] MAIN OR PRO RECONSTRUCTION DISLOC PATELLA W/EXTENSOR REALIGN &/OR MUSCLE REL 12/16/2010 PATELLAR REALIGNMENT performed by BRENDAN NAVARRO at [facility] MAIN OR PRO RECONSTRUCTION DISLOCATING PATELLA 02/13/2012 REPAIR DISLOCATING PATELLA performed by JENNIFER ZHANG at [facility] MAIN OR PRO RECONSTRUCTION DISLOCATING PATELLA Right 02/10/2014 REPAIR DISLOCATING PATELLA performed by Jennifer Zhang MD at [facility] MAIN OR TONSILLECTOMY AND ADENOIDECTOMY OB History 4 Para 2 Term 2 [...] fetus, Gestational diabetes, Hypertension affecting 4 Current Medications Prior to Admission Medication Sig Dispense Refill Last Dose 95-iron [id number] ( + DHA) 28 mg iron-800 mcg-200 mg Combo Pack Take by oral route. pantoprazole EC (Protonix) [address] tablet Take 1 tablet by mouth Daily at Noon. Blood-Glucose Meter Misc 1 each by Misc.(Non-Drug; Combo Route) route as needed. 1 each 0 lancets Misc 1 each by Misc.(Non-Drug; Combo Route) route 4 times daily. 100 each 3 blood sugar diagnostic strips Strip 1 strip by Other route 4 times daily. Fasting and one hour after each meal. 100 each 3 Allergies Allergen Reactions Latex Hives Latex, Natural [...] Date(s) Administered Covid-19 Monovalent (Moderna Spikevax) 12yrs+ ([id number]) 08/15/2020, 09/18/2020 Influenza PF, Split 02/11/2014 Last Set of Vitals: BP 127/68 (BP Location (NBP): Right arm, Patient Position: Sitting) Pulse 91 Temp 37.1 ??C (98.8 ??F) (Oral) Resp 15 Ht 160 cm (5' 3) Wt 127 kg (280 lb) SpO2 97% BMI 49.60 kg/m?? Physical Exam Gen: AAO, sitting comfortably in bed Cardio: hemodynamically stable Pulm: no increased WOB on RA Abd: soft, NT, ND, gravid Ext: warm, well-perfused, no JOVANNY or calf tenderness Neuro: grossly intact Uterine Size: S=D Clinical EFW: 7lbs Cervix Exam: will plan to do exam at midnight Pelvis: proven to 7lbs Presentations: Cephalic Heart Rate Interpretation: Reactive NST Baseline: 125, Variability: moderate, Accels: yes, Decels: none, [place] Carla: none Lab Results Component Value Date ABORH A POSITIVE 02/24/2024 HCT 31.1 (L) 02/24/2024 HCT 39.5 07/28/2017 HGB 9.7 (L) 02/24/2024 HGB 12.9 07/28/2017 MCV 73.7 (L) 02/24/2024 MCV 84.4 07/28/2017 AST 19 07/28/2017 ABO/RH A pos Hgb/Hct 10.2/33.2 Platelets 323 Rubella immune Syphillis NR GC/Chlam Neg/neg Urine Culture Pos HepBsAg Neg HIV Neg Hep C Ab Neg 1 hr GTT 124 3 hr GTT N/a GBS Neg (called to confirm from [facility]) Pap NILM (07/2023) NIPT Low risk Most Recent Growth Ultrasound OB F/u US 02/09/2024 for , high BMI, transfer of care at 36w5d Cephalic Anterior placenta RENETTA 27.5, MVP 8.5, mild poly EFW 2936g, 47% Assessment & Plan Samreen Martinez is a 23 y.o. at 39w0d being admitted for induction of labor, TOLAC. TOLAC and CS consents signed. Heart Rate Assessment: Reactive NST Labor State: Not in labor. Labor management: Plan to start induction of labor with wayne balloon and pitocin at midnight once patient is 39w0d. 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 Petersen, Attending COMPLIANCE PROFESSIONAL. Curt Cadet MD OBGYN PGY1 02/25/2024 Attending note I saw and evaluated the patient with Dr Cadet (resident physician.) I have reviewed the resident's history during the visit and I agree with the details as written. My physical examination confirms and/or revises the resident's findings. The assessment and plan were formulated in discussion withme at the time of the visit and I agree with them as documented. Brianda Petersen MD documented in this encounter Miscellaneous Notes * Note - Angeline Alexis RN - 02/26/2024 2:30 PM EST This note was copied from a baby's chart. [facility] [place] [facility] Assessment- Inpatient Encounter Date/Time: 02/26/2024 / 1399 Infant's name: Baby Piter Martinez [id number] : 02/25/2024 Time of : 3:17 PM Mode of Delivery: Vaginal, Spontaneous Gestational Age: Gestational Age: 39w0d 's age: 23 hours Weights since : -2% in the past 24 hours: Quality of Date/Time Quality of Breastfeed 02/26/24 0500 -- Family Information: Parent: Samreen Martinez Age: 23 y.o. G 4 P 3 Medications: Information for the patient's mother: Samreen Martinez [[id number]] No current facility-administered medications on file prior to encounter. Current Outpatient Medications on File Prior to Encounter Medication Sig Dispense Refill 95-iron bnq-[id number]-ndk ( + DHA) 28 mg iron-800 mcg-200 mg Combo Pack Take by oral route. pantoprazole EC (Protonix) [address] tablet Take 1 tablet by mouth Daily at Noon. Blood-Glucose Meter Misc 1 each by Misc.(Non-Drug; Combo Route) route as needed. 1 each 0 lancets Misc 1 each by Misc.(Non-Drug; Combo Route) route 4 times daily. 100 each 3 blood sugar diagnostic strips Strip 1 strip by Other route 4 times daily. Fasting and one hour after each meal. 100 each 3 Partner: Name: Shaq Involved: Yes Significant History: Previous experience: Yes--BF her previous for a short time Breast Surgery: No Breast Pump at home: Spectra Breast Changes During : Yes Breast Exam: Size: Slightly widely spaced, very pliable Shape: Round east/west Milk Production: Colostral Phase Nipple Exam: Short-shafted Nipple Trauma: Bilateral nipple trauma Nipple Care Management: Earth Mama Nipple Butter and Hydrogel Pads given, with instructions to clean off any film after removing Hydrogel Pads. Hydrogel Pads can be kept in the refrigerator so they are soothing and cooling when used. Hydrogel Pads are good for 24 hours, if they loose their stickiness, put some water on them to make them sticky. Assessment: Skin to Skin after : Yes Date/Time of 1st Feeding: Quality of Breastfeed: (pt states NB BF q45 mins-1 throughout the night) (02/26/24 0500) Infant Oral Motor Examination/Function: Mouth: Normal Jaw: Normal, able to open wide Lips: Normal Gums: Normal Tongue: Normal resting position Rooting: Normal Attachment: Adequate Swallow: Normal/Coordination Suck:Swallow Ratio: WNL for current colostrum supply Sucking Burst Pattern: Nutritive: Mature WNL Coordination of Infant Suck: Smooth/rhythmic Assessment: Latched on the right breast in football hold without the nipple shield and was not stimulated to suck most likely due to short shafted nipple. Latched on again with the nipple shield and started to breastfeed. Feel asleep quickly. Latched on the left breast in cross cradlewith the nipple shield and breastfed for 10 minutes. On-going Concerns: Nipple Shield gHTN/ GDM/ increase BMI- risk for delayed/low breastmilk supply Inadequate latch Sore maternal nipples Monitor growth and nutrition closely Feeding cues, positioning, & latch instructed:while viewing a feedin02/26/24 Proper latch, suck, and swallow observed prior to D/C: Viewed 02/26/24 Topics Reviewed with Mother: [x] Expectations for the first 24-48 hours and cue-based feeding (prevention of engorgement, tracking wet and poop diapers) [x] [place] behavior/sleep patterns [x] How to know if baby is getting enough, no limits on how long an should be fed [x] Growth Spurt Behavior [x] Interventions for nipple soreness [x] Recovery, rest, & diet [x] Community Breast Feeding Resources reviewed with mother [x] Discussed call OB Provider for breast issues Pamphlets Provided: Engorgement Cracked and Abraded Nipples Nipple Shield Breast Massage and Hand Expression Feeding Logs Your Guide to [facility] Services Card with Community Resources Provider follow-up plan: Kayla Gonzalez -Report difficulty waking, poor and/or irritability to your pediatric provider follow-up in [facility]. Provided phone number for support. Feeding Plan: Feed infant frequently (every 2-3 hours) to achieve 8-10 breastfeeds in a 24 hour period. Look for 's early feeding cues to bring infant to breast to feed. Cluster feeding is to be expected to bring in a healthy supply of breast milk. If your infant is fussy, bring your to the breast to feed and to help soothe. Nipple Shield Feeding Plan: How to use the shield: -Wet the shield with warm tap water -Roll the shield back about 1[address] the shank of the shield -Apply to nipple -Roll the shield back onto the breast so the nipple is pulled into the shank of the shield -Latch the on by tipping his head, bringing the 's chin onto the breast first with nipple shield at philtrum and allow the baby to take it deeply into the mouth -Assure the infant's lips are at the base on the shield, not slipping back and forth Care of the Nipple Shield: Wash the shield and air dry, may be boiled if desired Maintaining Breastmilk Production: Breastfeed as cues for readiness Pump with an electric breast pump, both breasts at the same time, 8 times each day Hand Expression and Breast Massage Alternate breast compressions during feeding Weaning from the nipple shield: Begin feeding on shield When milk ejection reflex occurs and has changed suck pattern to nutritive, quickly remove the shield and attempt re-latch. If unsuccessful, try again at the next feeding 25 minutes were spent with this family, providing assessment, assistance, education, and support. Mother voices understanding of education and recommendations. Angeline Alexis MPH, BSN, RN, IBCLC [facility] [phone] * Care Management - Kayla Alcaraz RN - 02/26/2024 1:26 PM EST OFFICE OF CARE MANAGEMENT/assembler corncob pipes Per conversation with BP PHILLIPS, she will be meeting with family to offer support and will complete Initial Assessment for patient. RNCM will remain available throughout patient's admission to assist with any discharge planning needs. Kayla Alcaraz RN Case Manager [facility] and covering for Pedi/PICU/ICN [phone] Pager [phone] * Initial Assessments - Kayla Puente MSW - 02/26/2024 1:10 PM EST Images from the original note were not included. [place] Psychosocial Assessment JACQUELINE Holloway reviewed record and discussed patient with Care Team. Source of Information: EMAIL OPERATIONS MANAGER met with MOB at bedside to complete psychosocial assessment. Upon EMAIL OPERATIONS MANAGER arrival, MOB was resting in bed and FOShaq Kenny, was on couch holding infant. EMAIL OPERATIONS MANAGER introduced self/reviewed role; services accepted. Child???s Name: Rogerio Santiago Reason for Hospitalization: Present on Admission: Encounter for induction of labor Patient receiving hospital care under Inpatient status. Past Medical History: Past Medical History: Diagnosis [...] Environment: MOB confirms that she lives at [address] [place] [id number] Household members: MOB reports that she resides at home with FOB and their three older children (two year old daughter, Dex, and 1 year old twins, Shaq DuffyShasta & Susannah). MOB confirms that will reside [...] confirms that they utilize WIC and [employer]. Housing: MOB denied any housing concerns. MOB confirms that their home is safe and stable at this time. Transportation: MOB denied any transportation concerns. Financial: MOB denied any financial concerns. MOB discussed that she is a full- time [id number] mother. FOB works real time operator. Car Seat: MOB confirms that they have a car seat and all other supplies for infant including a bassinet, clothes, diapers, wipes and [...] plan to see Kayla Gonzalez for 's donor relations associate and she believes that the follow up appointment is already scheduled. Potential Needs/referrals for Transition of Care: There are no potential needs for discharge. Transportation at discharge: FOB states that he will provide DC transportation when necessary. Anticipated Barriers to Discharge/Special Considerations: There are not anticipated barriers to discharge at this time. Assessment: MOB denied any additional questions or concerns for EMAIL OPERATIONS MANAGER at this time. Plan: EMAIL OPERATIONS MANAGER updated patient's care team and will continue to remain available for further patient andDC needs as they arise. A member of the Care Management team will continue to monitor progress, follow for continuity of care and assist with transition of care planning. JACQUELINE Valerio Pronouns: She/Her/Her's Pediatric Social Work [email or web address] cell: [phone] I Pager: [phone] [email or web address] [facility] * Plan of Care - Lesly Robles RN - 02/25/2024 9:54 PM EST OUTCOME EVALUATION NOTE: OUTCOME SUMMARY: Patient has been stable overnight. VSS and lochia WNL. Bonding with baby and frequently during the night. Assisted with latch and gave patient a shield (which she requested) and instructed her on its use. Pain well controlled and managed per plan. Voiding well independently. Family-centered care provided. PLAN MOVING FORWARD: Continue to assess VS, fundus, and lochia per orders and PRN. Treat pain as needed. Assist with and encourage bonding/rooming-in. INDIVIDUALIZED FALL PREVENTION INTERVENTIONS: Patient-specific fall risk factors per assessment: [current deficits]: Unfamiliar environment, pain. Assistance [level of assistance required for transfers and ambulation]: Independent. Supervision [direct monitoring required during toileting and ADLs]: Independent. Will call prn for help OOB if feeling dizzy or weak. Surveillance [continuous indirect monitoring]: Rounding by RN. Call wall within reach. Aware of when to call nurse. * Plan of Care - Chino Britt RN - 02/25/2024 7:13 PM EST OUTCOME EVALUATION NOTE: OUTCOME SUMMARY: Routine PP care provided. VSS. Bleeding WNL. Ambulating independently. Voiding without assistance. No complaints of pain. with minimal assistance. Family bonding promoted. Attentive to needs, bonding well with . Will continue to closely monitor and assess. PLAN MOVING FORWARD: Routine PP care Discharge planning Promote family bonding INDIVIDUALIZED FALL PREVENTION INTERVENTIONS: Patient-specific fall risk factors per assessment: [current deficits]: Hospital environment Assistance [level of assistance required for transfers and ambulation]: Independent Supervision [direct monitoring required during toileting and ADLs]: Independent Surveillance [continuous indirect monitoring]: Purposeful rounding, call wall within reach CPG GOAL OUTCOME EVALUATION: * L&D Delivery Note - Teresa Servin MD - 02/25/2024 4:02 PM EST Vaginal Delivery Note 02/25/24 Samreen Martinez is a 23 y.o. woman at 39w0d weeks gestational age, who was electively induced for TOLAC. She was induced with a CRB and pitocin, and she had normal labor progress. She used IV pain meds and an epidural for analgesia. She was found to be complete at 15:13 with the presenting part at +1 station. She pushed for 4 minutes and spontaneously delivered at 15:17. The infant's head was delivered in a controlled fashion. There was a single nuchal cord. The body was delivered without incident over an intact perineum. A viable male infant was placed on mom's chest and had APGARS of 8 and 9 at 1 and 5 minutes and had a bear ght pending at the time of this note. The cord was clamped in 2 places and transected. The placentadelivered spontaneously in under 30 minutes and it was a 3-vessel cord. The fundus became firm withmassage and pitocin. Inspection of the vagina and perineum revealed a right sided labial 1st degreelaceration which was repaired with 3-0 vicryl suture. The sulci were examined and found to be intact. Blood loss quantified at 135mL. She was in stable condition after delivery. The infant remained in stable condition at the bedside. Teresa Servin MD PGY2 Obstetrics/Gynecology 02/25/24 Information for the patient's : Yulia Martinez [[id number]] DELIVERY SUMMARY FOR Yulia Martinez (please note there is a separate summary for each fetus) 02/25/2024 3:17 PM by Sex: male Gestational Age: 39w0d Labor Events Rupture date/time: 02/25/2024 0931 Rupture type: artificial rupture of membranes Fluid color: clear Mother Delivery Episiotomy: None Perineal lacerations: None Labial laceration: right Repaired: Yes Surgical or additional est. blood loss (mL): 0 Combined est. blood loss (mL): 0 Repair suture: Synthetic Rapid Absorbable OB OR Quantitative Blood Loss Totals 02/25/24 0317 - 02/25/24 1609 Vaginal [facility] Hospital Encounter 135 mL Total 135 Delivery ([place]) Delivery Date: 02/25/24 Delivery Time: 3:17:00 PM Sex: Male Shoulder Dystocia Shoulder dystocia present?: No Delivery Information Delivery Location: delivery room Delivering Clinician: Teresa Servin MD Other Personnel: Provider Role Chino Britt RN Delivery Nurse Gertrude Meléndez MD Wharf Tender Sarahi Kaplan RN Delivery Assist Sun Dee DO Resident Anesthesia Method: Epidural Cord Vessels: 3 Vessels Complications: Nuchal x 1 Gases Sent?: No Cord Insertion: eccentric Assessment & APGARS Living status: Living Apgars 1 Minute: 5 Minute: 10 Minute 15 Minute 20 Minute Skin Color: 0 1 Heart Rate: 2 2 Reflex Irritability: 2 2 Muscle Tone: 2 2 Respiratory Effort: 2 2 Total: 8 9 Apgars Assigned By: CHINO BRITT Resuscitation Method: None Maternal Feeding and Skin to Skin Skin to skin initiated date/time: 02/25/2024 1517 Skin to skin with: Mother [place] Medications No data filed Measurements No data filed Placenta Date and Time: 02/25/2024 3:21:00 PM Removal: Spontaneous Appearance: Intact Labor Length No data filed Associated attestation - Gertrude Meléndez MD - 02/27/2024 8:54 AM EST I was supervising the resident during the second and third stage of labor and delivery. I agree with the description of the delivery as outlined in the delivery note. Gertrude Meléndez MD * Plan of Care - Chino Britt RN - 02/25/2024 7:38 AM EST Problem: Adult Inpatient Plan of Care Goal: [...] Ongoing (Interventions Implemented as Appropriate) Problem: Bleeding (Labor) Goal: Hemostasis Outcome: Ongoing (Interventions Implemented as Appropriate) Problem: Change in Wellbeing (Labor) Goal: Stable Wellbeing Outcome: Ongoing (Interventions Implemented as Appropriate) Problem: Delayed Labor Progression (Labor) Goal: Effective Progression to Delivery Outcome: Ongoing (Interventions Implemented as Appropriate) Problem: Infection (Labor) Goal: Absence of Infection Signs and Symptoms Outcome: Ongoing (Interventions Implemented as Appropriate) Problem: Labor Pain (Labor) Goal: Acceptable Pain Control Outcome: Ongoing (Interventions Implemented as Appropriate) Problem: Uterine Tachysystole (Labor) Goal: Normal Uterine Contraction Pattern Outcome: Ongoing (Interventions Implemented as Appropriate) * Plan of Care - Lesly Robles RN - 02/24/2024 10:38 PM EST OUTCOME EVALUATION NOTE: OUTCOME SUMMARY: Patient has been doing well overnight in the labor process. VSS. Pain managed per patient preferences with non-pharmacological treatments utilized when possible. Pt declines any pain meds at this time. Position changes encouraged and facilitated. Family at bedside, supporting patient. tracingstable and Cat 1. Patient and family aware of when to call the RN. Wayne balloon placed earlier in the shift and came out this morning spontaneously on the toilet at 0620. Second wayne balloon placedat 0654 with 60 ml inflation. Pitocin titrated up throughout night and is currently at 18mu. Pt hasslept well most of the night per her report, but is starting to feel contractions this morning. Frequent toco and US adjustments throughout the shift to maintain FHR and to attempt to trace UC's, but difficult R/T maternal position changes and habitus. PLAN MOVING FORWARD: Continue to monitor FHR and contraction pattern as ordered and appropriate. Complete intrauterine resuscitation measures as needed. Continue to support patient and assist with labor progression and pain management. Monitor VS as ordered and prn. INDIVIDUALIZED FALL PREVENTION INTERVENTIONS: Patient-specific fall risk factors per assessment: [current deficits]: Pain, lines/tubing. Assistance [level of assistance required for transfers and ambulation]: Independent. Will call for assistance as needed. Supervision [direct monitoring required during toileting and ADLs]: Independent. Surveillance [continuous indirect monitoring]: Call wall within reach. Rounding by this RN. documented in this encounter Plan of Treatment Not on file documented as of this encounter Procedures Procedure Name Priority Date/Time Associated Diagnosis Comments CBC (WITH DIFF) Routine 02/26/2024 8:14 AM EST COMPREHENSIVE METABOLIC PANEL Routine 02/26/2024 8:14 AM EST OB HOLD Routine 02/25/2024 6:34 PM EST ABORH RECHECK (PATIENT HISTORY FOUND) Routine 02/24/2024 10:41 PM EST HEMOGRAM Routine 02/24/2024 10:41 PM EST SYPHILIS ANTIBODY SCREEN WITH REFLEX Routine 02/24/2024 10:41 PM EST TYPE AND SCREEN ([facility]) Routine 02/24/2024 10:41 PM EST documented in this encounter Results * (ABNORMAL) Comprehensive metabolic panel (02/26/2024 8:14 AM EST) Glucose 76 65 - 199 mg/dL 02/26/2024 10:05 AM [facility] Comment:Glucose Concentratio n >=200 mg/dL plus symptoms is consistent with Diabetes Mellitus. Blood Urea Nitrogen 7(L) 8 - 18 mg/dL 02/26/2024 10:05 AM [facility] Creatinine 0.63(L) 0.70 - 1.20 mg/dL 02/26/2024 10:05 AM [facility] Sodium 138 135 - 145 mMol/L 02/26/2024 10:05 AM [facility] Potassium 4.1 3.5 - 5.0 mMol/L 02/26/2024 10:05 AM [facility] Chloride 105 98 - 107 mMol/L 02/26/2024 10:05 AM [facility] Carbon Dioxide 20(L) 22 - 31 mMol/L 02/26/2024 10:05 AM [facility] Anion Gap 13 5 - 15 mMol/L 02/26/2024 10:05 AM [facility] Calcium 8.7 8.5 - 10.5 mg/dL 02/26/2024 10:05 AM [facility] Protein, Total 6.2 6.1 - 8.0 g/dL 02/26/2024 10:05 AM [facility] Albumin 2.9(L) 3.2 - 5.2 g/dL 02/26/2024 10:05 AM [facility] Aspartate Aminotransferase 26 <=30 unit/L 02/26/2024 10:05 AM [facility] Alanine Aminotransferase 14 0 - 30 unit/L 02/26/2024 10:05 AM [facility] Alkaline Phosphatase 117(H) 35 - 105 unit/L 02/26/2024 10:05 AM [facility] Bilirubin, Total 0.2 <=1.3 mg/dL 02/26/2024 10:05 AM [facility] Est Glomerular Filtration Rate - Female 128 mL/min/1. 73 m?? 02/26/2024 10:05 AM [facility] Comment: This patient's estimated GFR was calculated using the 2020 CKD-EPI equation. The estimated GFR can vary from the measured GFR by up to 30% in the absence of rapidly changing kidney function. Assessment of the estimated GFR is not appropriate when creatinine concentrations are rapidly changing. For clinical situations in which a more precise estimate of GFR is necessary, consider alternative methods of GFR estimation such as a 24-hour urine creatinine clearance. Assignment of CKD stage 1 - 5 for patients with an eGFR near the transition point between stages may be based on clinical assessment of muscle mass and symptoms in addition to eGFR. Link: eGFR Calculator [employer] Blood VENOUS BLOOD SPECIMEN / Unknown Venipuncture / Unknown 02/26/2024 8:14 AM EST 02/26/2024 8:53 AM EST Brianda Petersen MD CHEMISTRY ORDERABLES [facility] [place] [address] * (ABNORMAL) CBC (with Diff) (02/26/2024 8:14 AM EST) White Blood Cell 10.54(H) 4.00 - 9.50 x10(3)/mc L 02/26/2024 9:11 AM EST [facility] Red Blood Cell 4.04 4.00 - 5.21 x10(6)/mc L 02/26/2024 9:11 AM [facility] Hemoglobin 9.3(L) 11.7 - 15.5 g/dL 02/26/2024 9:11 AM [facility] Hematocrit 29.9(L) 35.7 - 45.8 % 02/26/2024 9:11 AM [facility] [facility] Mean Cell Volume 74.0(L) 82.6 - 94.4 fL 02/26/2024 9:11 AM [facility] Mean Cell Hemoglobin 23.0(L) 27.1 - 32.0 pg 02/26/2024 9:11 AM [facility] Mean Cell Hemoglobin Concentration 31.1(L) 31.7 - 35.0 g/dL 02/26/2024 9:11 AM [facility] Platelet 312 145 - 357 x10(3)/mc L 02/26/2024 9:11 AM [facility] Mean Platelet Volume 11.0 7.6 - 12.9 fL 02/26/2024 9:11 AM [facility] RDW Standard Deviation 44.1 37.0 - 46.0 fL 02/26/2024 9:11 AM [facility] RDW coefficient of variation 16.5(H) 11.5 - 14.1 % 02/26/2024 9:11 AM [facility] NRBC% auto 0.0 % 02/26/2024 9:11 AM [facility] NRBC Absolute <0.01 <0.01 x10(3)/mc L 02/26/2024 9:11 AM [facility] Neutrophil % 60.7 % 02/26/2024 9:11 AM [facility] Neutrophil Absolute (ANC) - Automated 6.39(H) 1.70 - 6.10 x10(3)/mc L 02/26/2024 9:11 AM [facility] Lymph % 30.6 % 02/26/2024 9:11 AM [facility] Lymph Absolute 3.23(H) 0.90 - 3.20 x10(3)/mc L 02/26/2024 9:11 AM [facility] Monocyte % 6.9 % 02/26/2024 9:11 AM [facility] Monocyte Absolute 0.73 0.30 - 0.90 x10(3)/mc L 02/26/2024 9:11 AM [facility] Eos % 0.5 % 02/26/2024 9:11 AM [facility] Eos Absolute 0.05 0.00 - 0.40 x10(3)/mc L 02/26/2024 9:11 AM [facility] Basophil % 0.3 % 02/26/2024 9:11 AM [facility] Baso Absolute <0.04 0.00 - 0.10 x10(3)/mc L 02/26/2024 9:11 AM [facility] Immature Gran % 1.0 % 9:11 AM [facility] Immature Gran Absolute 0.11(H) 0.00 - 0.04 x10(3)/mc L 02/26/2024 9:11 AM [facility] Blood VENOUS BLOOD SPECIMEN / Unknown Venipuncture / Unknown 02/26/2024 8:14 AM EST 02/26/2024 8:53 AM EST Brianda Petersen MD HEMATOLOGY ORDERABLE S [facility] [place] [address] * OB Hold (02/25/2024 6:34 PM EST) OB Hold Specimen Status Reviewed in lab; specimen held per protocol. 02/26/2024 10:52 AM EST [facility] Tissue PLACENTAL STRUCTURE / Unknown Non Blood Collection / Unknown 02/25/2024 6:34 PM EST 02/26/2024 10:39 AM EST Brianda Petersen MD PATHOLOGY/CYTOLOGY O RDERABLES [facility] [place] [address] * ABORH RECHECK (PATIENT HISTORY FOUND) (02/24/2024 10:41 PM EST) ABORH Recheck Progress Complete 02/25/2024 1:01 AM EST [facility] Blood VENOUS BLOOD SPECIMEN / Unknown Venipuncture / Unknown 02/24/2024 10:41 PM EST 02/24/2024 10:58 PM EST Brianda Petersen MD BLOOD BANK LAB ORDER LES Performing Organization Address City/[facility]/ZIP Co de Phone Number [facility] [place] [address] * Type and screen ([facility]/[place]) (02/24/2024 10:41 PM EST) ABORH Type A POSITIVE 02/25/2024 12:05 AM EST [facility] PATIENT HISTORY Found 02/25/2024 12:05 AM EST [facility] Expires at 2359 on: 02-27-2024 02/25/2024 12:05 AM EST [facility] ANTIBODY SCREEN AUTOMATED Negative 02/25/2024 12:05 AM EST [facility] T&S only valid at [facility] 02/25/2024 12:05 AM EST [facility] Blood VENOUS BLOOD SPECIMEN / Unknown Venipuncture / Unknown 02/24/2024 10:41 PM EST 02/24/2024 10:58 PM EST Narrative [facility] - 02/25/2024 12:05 AM EST This Type and Screen result is only valid at the [facility] Brianda Petersen MD BLOOD BANK LAB ORDER LES [facility] [place] [address] * Syphilis Screening Antibody with reflex RPR (02/24/2024 10:41 PM EST) Pathologist [facility] Syphilis IgG/IgM Negative Negative 02/24/2024 11:43 PM EST [facility] Blood VENOUS BLOOD SPECIMEN / Unknown Venipuncture / Unknown 02/24/2024 10:41 PM EST 02/24/2024 11:07 PM EST Brianda Petersen MD CHEMISTRY ORDERABLES Performing Organization Address City/State/[facility] Co de Phone Number [facility] [place] [address] * (ABNORMAL) Hemogram (02/24/2024 10:41 PM EST) [facility] White Blood Cell 8.79 4.00 - 9.50 x10(3)/mc L 02/24/2024 11:11 PM [facility] Red Blood Cell 4.22 4.00 - 5.21 x10(6)/mc L 02/24/2024 11:11 PM [facility] Hemoglobin 9.7(L) 11.7 - 15.5 g/dL 02/24/2024 11:11 PM [facility] Hematocrit 31.1(L) 35.7 - 45.8 % 02/24/2024 11:11 PM [facility] Mean Cell Volume 73.7(L) 82.6 - 94.4 fL 02/24/2024 11:11 PM [facility] Mean Cell Hemoglobin 23.0(L) 27.1 - 32.0 pg 02/24/2024 11:11 PM [facility] Mean Cell Hemoglobin Concentration 31.2(L) 31.7 - 35.0 g/dL 02/24/2024 11:11 PM [facility] Platelet 335 145 - 357 x10(3)/mc L 02/24/2024 11:11 PM [facility] Mean Platelet Volume 10.9 7.6 - 12.9 fL 02/24/2024 11:11 PM [facility] RDW Standard Deviation 44.0 37.0 - 46.0 fL 02/24/2024 11:11 PM EST [facility] RDW coefficient of variation 16.6(H) 11.5 - 14.1 % 02/24/2024 11:11 PM EST [facility] NRBC% auto 0.0 % 02/24/2024 11:11 PM EST [facility] NRBC Absolute <0.01 <0.01 x10(3)/mc L 02/24/2024 11:11 PM EST [facility] Blood VENOUS BLOOD SPECIMEN / Unknown Venipuncture / Unknown 02/24/2024 10:41 PM EST 02/24/2024 11:07 PM EST Brianda Petersen MD HEMATOLOGY ORDERABLE S [facility] [place] [address] documented in this encounter Visit Diagnoses Diagnosis Encounter for induction of labor- Primary documented in this encounter Admitting Diagnoses Diagnosis Encounter for induction of labor documented in this encounter Administered Medications Inactive Administered Medications - up to 3 most recent administrations Medication Order MAR Action Action Date Dose Rate Site acetaminophen (Tylenol) tablet 975 mg 975 mg, Oral, EVERY 6 HOURS PRN, Starting on 02/24/24 at 2111, Until 02/26/24 at 0811, Headaches, Fever, Pain, Notify provider if dose is administered. Maximum dose of acetaminophen is 4,000 mg from all sources in 24 hours. When ordered for pain, acetaminophen should be given even when other ordered pain medications are indicated., Routine Given 02/25/2024 8:04 AM EST 975 mg acetaminophen (Tylenol) tablet 975 mg 975 mg, Oral, EVERY 6 HOURS PRN, Starting on 02/25/24 at 1727, Until 02/26/24 at 1852, Pain, Maximum dose of acetaminophen is 4,000 mg from all sources in 24 hours. Both acetaminophen and ibuprofen, if ordered, should be given even when other ordered pain medications are indicated. If both ordered, give ibuprofen first unless patient requests acetaminophen first., Routine Given 02/26/2024 2:54 AM EST 975 mg calcium carbonate (TUMS) chewable tablet 1,000 mg 1,000 mg (2 tablet), Oral, EVERY 4 HOURS PRN, Starting on 02/24/24 at 2111, Until Mon02/26/24 at 1852, Heartburn, Routine diphenhydrAMINE (Benadryl) capsule 25 mg 25 mg, Oral, DAILY PRN, Starting on 02/24/24 at 2111, Until Mon02/26/24 at 1852, Itching, Sleep, Allergies, Routine fentaNYL (pf) (2 mcg/mL), BUPivacaine (pf) 0.0625% in sodium chloride 0.9% 250 mL epidural Epidural, Epidural Type: PIEB + PCEA, PIEB Dose: 8 mL, PIEB Frequency: 45 minutes, PCEA Dose: 8 mL, PCEA Frequency: Every 10 minutes, 1 Hour Limit: 38 mL/hr, Maximum rate for continuous infusion is 16 mL per hour Maximum intermittent bolus is 15 mL Continuous = basal rate for epidural infusion PCEA (Patient Controlled Epidural Analgesia) = bolus from infusion delivered after patient presses demand button PIEB (Programmed Intermittent Epidural Bolus) = bolus from infusion delivered on a programmed frequency New Bag 02/25/2024 12:42 PM EST 250 mLs fentaNYL (PF) (50 mcg/mL) injection 75 mcg 75 mcg, Intravenous, EVERY 1 HOUR PRN, Starting on 02/25/24 at 1000, Until Mon02/26/24 at 0811, Pain, For labor pain, Routine Given 02/25/2024 11:22 AM EST 75 mcg Given 02/25/2024 10:06 AM EST 75 mcg ibuprofen (Advil) tablet 600 mg 600 mg, Oral, EVERY 6 HOURS PRN, Starting on 02/25/24 at 1727, Until Mon02/26/24 at 1852, Pain, Administer orally with milk or food to minimize GI irritation. Maximum dose of 3,200 mg from all sources in 24 hours Both acetaminophen and ibuprofen, if ordered, should be given even when other ordered pain medications are indicated. If both ordered, give ibuprofen first unless patient requests acetaminophen first. Do not administer with ketorolac, if ordered., Routine Given 02/26/2024 2:54 AM EST 600 mg iron sucrose (Venofer) (20 mg/mL) for slow IV push 200 mg 200 mg, Intravenous, ONCE, 1 dose, On Mon02/26/24 at 0945, Administer over 5 Minutes, Patients should be closely monitored for signs of hypersensitivity during and for at least 30 min after each administration. The observation period is not needed for patients who have demonstrated tolerability. Given 02/26/2024 9:44 AM EST 200 mg lactated ringers infusion 50 mL/hr, Intravenous, CONTINUOUS, Starting on 02/25/24 at 0100, Until 02/26/24 at 0811 Rate/Dose Verify 02/25/2024 2:00 PM EST 50 mL/hr 50 mL/hr New Bag 02/25/2024 1:21 PM EST 50 mL/hr 50 mL/hr Rate/Dose Verify 02/25/2024 1:00 PM EST 50 mL/hr 50 mL/h r lidocaine (Glydo) 2 % gel 6 mL 6 mL, Topical (Top), ONCE PRN, 1 dose, Starting on 02/24/24 at 2111, Until 02/26/24 at 1852, To numb perineum prior to delivery, or prior to urinary catheter placement., Routine oxytocin (Pitocin) (0.06 units/mL) in sodium chloride 0.9% 500 mL infusion 30 Units (500 mL), Intravenous, Administer over 1 Hours, ONCE PRN, 1 dose, Starting on 02/24/24 at 2111, Until Mon02/25/24 at 1620, post-delivery, To be administered at provider direction., Routine New Bag 02/25/2024 3:52 PM EST 30 Units 500 mL/hr Rate/Dose Change 02/25/2024 3:20 PM EST oxytocin (Pitocin) (0.06 units/mL) in sodium chloride 0.9% 500 mL infusion 1-30 manuel-units/min (1-30 mL/hr), Intravenous, CONTINUOUS, Starting on 02/25/24 at 0100, Until Mon02/26/24 at 0811, Piggyback into Lactated Ringers; Start at 2 milliunits/minute and increase by 2 milliunits/minutes every 30 minutes to achieve contractions that are every 2-3 minutes, lasting 60-90 seconds with 1 minute resting tone between contractions palpating strong. Notify OB Provider when oxytocin dose needs to exceed 20 milliunits/minute. Oxytocin may not be initiated until: - 1 hour after Cervidil is removed - 4 hours after last minute misoprostol dose is given, Routine Rate/Dose Change 02/25/2024 2:00 PM EST 22 manuel-units/min 22 mL/hr Rate/Dose Verify 02/25/2024 1:00 PM EST 20 manuel-units/min 20 mL/hr Rate/Dose Verify 02/25/2024 12:00 PM EST 20 manuel-units/mi n 20 mL/hr polyethylene glycoL (Miralax) packet 17 g 17 g, Oral, DAILY, First dose on 02/25/24 at 1745, Until Discontinued, Hold for loose stool. , Routine Given 02/25/2024 6:16 PM EST 17 g senna-docusate (Pericolace) 8.6-50 mg per tablet 2 tablet 2 tablet, Oral, 2 TIMES DAILY, First dose on 02/25/24 at 2100, Until Discontinued, Hold for loose stool. , Routine Given 02/26/2024 2:56 AM EST 2 tablets sodium chloride 0.9 % (flush) (BD PosiFlush Normal Saline 0.9) flush 5 mL 5 mL, Intravenous, 2 TIMES DAILY, First dose on 02/24/24 at 2145, Until Discontinued, Routine Given 02/26/2024 7:53 AM EST 5 mLs Given 02/25/2024 8:05 AM EST 5 mLs Given 02/24/2024 10:40 PM EST 5 mLs documented in this encounter Active and Recently Administered Medications Times are shown in EST. Scheduled Medication Order 02/24/2024 02/25/2024 02/26/2024 iron sucrose (Venofer) (20 mg/mL) for slow IV push 200 mg (COMPLETED) 200 mg, Intravenous, ONCE, 1 dose, On 02/26/24 at 0945, Administer over 5 Minutes, Patients should be closely monitored for signs of hypersensitivity during and for at least 30 min after each administration. The observation period is not needed for patients who have demonstrated tolerability. 0944 (Given - Provider: Elsa Pavon, YOLY) pantoprazole EC (Protonix) tablet 40 mg 40 mg, Oral, DAILY AT NOON, First dose on 02/26/24 at 1200, Until Discontinued, DO NOT CRUSH OR OPEN, Routine 1200 (Not Given - Provider: Elsa Pavon RN - Reason: Patient/family refused) polyethylene glycoL (Miralax) packet 17 g 17 g, Oral, DAILY, First dose on 02/25/24 at 1745, Until Discontinued, Hold for loose stool. , Routine 1816 (Given - Provider: Chino Britt, YOLY) 0900 (Not Given - Provider: Elsa Pavon RN - Reason: Patient/family refused) senna-docusate (Pericolace) 8.6-50 mg per tablet 2 tablet 2 tablet, Oral, 2 TIMES DAILY, First dose on 02/25/24 at 2100, Until Discontinued, Hold for loose stool. , Routine 0256 (Given - Provider: Lesly Robles RN)0900 (Not Given - Provider: Elsa Pavon RN - Reason: Patient/family refused) sodium chloride 0.9 % (flush) (BD PosiFlush Normal Saline 0.9) flush 5 mL (CANCELED) 5 mL, Intravenous, 2 TIMES DAILY, First dose on 02/24/24 at 2145, Until Discontinued, Routine 2240 (Given - Provider: Lesly Robles RN) 0805 (Given - Provider: Chino Britt, YOLY)2100 (Not Given - Provider: Lesly Robles RN - Reason: See comment - Comment: IV dcd) 0753 (Given - Provider: Elsa Pavon RN) Continuous Medication Order 02/24/2024 02/25/2024 02/26/2024 fentaNYL (pf) (2 mcg/mL), BUPivacaine (pf) 0.0625% in sodium chloride 0.9% 250 mL epidural (CANCELED)(Linked Group 1) Epidural, Epidural Type: PIEB + PCEA, PIEB Dose: 8 mL, PIEB Frequency: 45 minutes, PCEA Dose: 8 mL, PCEA Frequency: Every 10 minutes, 1 Hour Limit: 38 mL/hr, Maximum rate for continuous infusion is 16 mL per hour Maximum intermittent bolus is 15 mL Continuous = basal rate for epidural infusion PCEA (Patient Controlled Epidural Analgesia) = bolus from infusion delivered after patient presses demand button PIEB (Programmed Intermittent Epidural Bolus) = bolus from infusion delivered on a programmed frequency 1242 (New Bag - Provider: Chino Britt RN)1536 (Stopped - Provider: Chino Britt RN) lactated ringers infusion (CANCELED) 50 mL/hr, Intravenous, CONTINUOUS, Starting on Mon02/25/24 at 0100, Until Mon02/26/24 at 0811 0051 (New Bag - Provider: Lesly Robles RN)0800 (Rate/Dose Verify - Provider: Chino Britt RN)0900 (Rate/Dose Verify - Provider: Chino Britt RN)1000 (Rate/Dose Verify - Provider: Chino Britt RN)1100 (Rate/Dose Verify - Provider: Chino Britt RN)1200 (Rate/Dose Change - Provider: Chino Britt RN)1250 (Rate/Dose Change - Provider: Chino Britt RN)1300 (Rate/Dose Verify - Provider: Chino Britt RN)1321 (New Bag - Provider: Chino Brtit RN)1400 (Rate/Dose Verify - Provider: Chino Britt RN)1730 (Stopped - Provider: Chino Britt RN) oxytocin (Pitocin) (0.06 units/mL) in sodium chloride 0.9% 500 mL infusion (CANCELED) 1-30 manuel-units/min (1-30 mL/hr), Intravenous, CONTINUOUS, Starting on Mon02/25/24 at 0100, Until Mon02/26/24 at 0811, Piggyback into Lactated Ringers; Start at 2 milliunits/minute and increase by 2 milliunits/minutes every 30 minutes to achieve contractions that are every 2-3 minutes, lasting 60-90 seconds with 1 minute resting tone between contractions palpating strong. Notify OB Provider when oxytocin dose needs to exceed 20 milliunits/minute. Oxytocin may not be initiated until: - 1 hour after Cervidil is removed - 4 hours after last minute misoprostol dose is given, Routine 0053 (New Bag - Provider: Lesly Robles RN)0130 (Rate/Dose Change - Provider: Lesly Robles RN)0205 (Rate/Dose Change - Provider: Lesly Robles RN)0240 (Rate/Dose Change - Provider: Lesly Robles RN)0313 (Rate/Dose Change - Provider: Lesly Robles RN)0348 (Rate/Dose Change - Provider: Caitlin Ricketts RN)0430 (Rate/Dose Change - Provider: Lesly Robles RN)0505 (Rate/Dose Change - Provider: Lesly Robles RN)0644 (Rate/Dose Change - Provider: Lesly Robles RN)0800 (Rate/Dose Verify - Provider: Chino Britt RN)0830 (Rate/Dose Change - Provider: Chino Britt RN)0900 (Rate/Dose Verify - Provider: Chino Britt RN)1000 (Rate/Dose Verify - Provider: Chino Britt RN)1100 (Rate/Dose Verify - Provider: Chino Britt RN)1200 (Rate/Dose Verify - Provider: Chino Britt RN)1300 (Rate/Dose Verify - Provider: Chino Britt RN)1400 (Rate/Dose Change - Provider: Kelly Portillo RN - Comment: MD Servin notifed) 0811 (Due: Stopped - Provider: Sun Dee DO) PRN Medication Order 02/24/2024 02/25/2024 02/26/2024 acetaminophen (Tylenol) tablet 975 mg (CANCELED) 975 mg, Oral, EVERY 6 HOURS PRN, Starting on 02/24/24 at 2111, Until 02/26/24 at 0811, Headaches, Fever, Pain, Notify provider if dose is administered. Maximum dose of acetaminophen is 4,000 mg from all sources in 24 hours. When ordered for pain, acetaminophen should be given even when other ordered pain medications are indicated., Routine 08 (Given - Provider: Chino Britt RN) acetaminophen (Tylenol) tablet 975 mg 975 mg, Oral, EVERY 6 HOURS PRN, Starting on 02/25/24 at 1727, Until 02/26/24 at 1852, Pain, Maximum dose of acetaminophen is 4,000 mg from all sources in 24 hours. Both acetaminophen and ibuprofen, if ordered, should be given even when other ordered pain medications are indicated. If both ordered, give ibuprofen first unless patient requests acetaminophen first., Routine 0254 (Given - Provid er: Lesly Robles RN) calcium carbonate (TUMS) chewable tablet 1,000 mg 1,000 mg (2 tablet), Oral, EVERY 4 HOURS PRN, Starting on 02/24/24 at 2111, Until 02/26/24 at 1852, Heartburn, Routine diphenhydrAMINE (Benadryl) capsule 25 mg 25 mg, Oral, DAILY PRN, Starting on 02/24/24 at 2111, Until 02/26/24 at 1852, Itching, Sleep, Allergies, Routine fentaNYL (PF) (50 mcg/mL) injection 75 mcg (CANCELED) 75 mcg, Intravenous, EVERY 1 HOUR PRN, Starting on 02/25/24 at 1000, Until 02/26/24 at 0811, Pain, For labor pain, Routine 1006 (Given - Provider: Chino Britt RN)1122 (Given - Provider: Chino Britt, YOLY) glycerin-witch Simeon (Tucks) 12.5-50 % pads Topical (Top), 4 TIMES DAILY PRN, Irritation, perineal pain, Starting on 02/25/24 at 1727, Until 02/26/24 at 1852 ibuprofen (Advil) tablet 600 mg 600 mg, Oral, EVERY 6 HOURS PRN, Starting on 02/25/24 at 1727, Until 02/26/24 at 1852, Pain, Administer orally with milk or food to minimize GI irritation. Maximum dose of 3,200 mg from all sources in 24 hours Both acetaminophen and ibuprofen, if ordered, should be given even when other ordered pain medications are indicated. If both ordered, give ibuprofen first unless patient requests acetaminophen first. Do not administer with ketorolac, if ordered., Routine 0254 (Given - Provid er: Lesly Robles RN) lidocaine (Glydo) 2 % gel 6 mL 6 mL, Topical (Top), ONCE PRN, 1 dose, Starting on 02/24/24 at 2111, Until 02/26/24 at 1852, To numb perineum prior to delivery, or prior to urinary catheter placement., Routine oxytocin (Pitocin) (0.06 units/mL) in sodium chloride 0.9% 500 mL infusion (COMPLETED) 30 Units (500 mL), Intravenous, Administer over 1 Hours, ONCE PRN, 1 dose, Starting on 02/24/24 at 2111, Until 02/25/24 at 1620, post-delivery, To be administered at provider direction., Routine 1520 (Rate/Dose Change - Provider: Chino Britt, YOLY)1552 (New Bag - Provider: Chino Britt, YOLY)1620 (Stopped - Provider: Chino Britt, YOLY) Linked Groups Order Group 1: fentaNYL (pf) (2 mcg/mL), BUPivacaine (pf) 0.0625% in sodium chloride 0.9% 250 mL epidural (CANCELED)Jump to med Epidural, Epidural Type: PIEB + PCEA, PIEB Dose: 8 mL, PIEB Frequency: 45 minutes, PCEA Dose: 8 mL, PCEA Frequency: Every 10 minutes, 1 Hour Limit: 38 mL/hr, Maximum rate for continuous infusion is 16 mL per hour Maximum intermittent bolus is 15 mL Continuous = basal rate for epidural infusion PCEA (Patient Controlled Epidural Analgesia) = bolus from infusion delivered after patient presses demand button PIEB (Programmed Intermittent Epidural Bolus) = bolus from infusion delivered on a programmed frequency And Neuraxial shift total and Settings verification (CANCELED) Epidural, 2 Times Daily- Neuraxial Shift Total, First dose on 02/25/24 at 1800, Until Discontinued And Neuraxial (Epidural) wheeler (CANCELED) Epidural, CONTINUOUS PRN, Starting on 02/25/24 at 1208, Until 02/26/24 at 0811 documented in this encounter Care Teams Electroplating Worker Relationship Specialty Start Date End Date None None PCP - General 12/22/23 documented as of this encounter
--- OUTSIDE RECORDS SUMMARY | 2024-05-05 10:43 | XMS_ITS | Encounter Summary ---
Author [place] [address] Care Team Providers Care Study Director Name Role Phone None Primary Care Provider Unavailabl e Encounter Details Date Type Department Care Team (Latest Contact Info) Description 12/22/2023 Travel Social History Tobacco Use Types Packs/Day [...] on filedocumented in this encounter Care Teams Study Director Relationship Specialty Start Date End Date None None PCP - General 12/22/23 documented as of this encounter
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
--- OUTSIDE RECORDS SUMMARY | 2024-05-05 10:43 | XMS_ITS | Clinical Summary ---
Author Organization [facility] Address [facility] [place] [address] Care Team Providers Care Caretaker Name Role Phone None Primary Care Provider Unavailabl e Allergies Active Allergy Reactions Criticality Noted Date Comments Amoxicillin Itching,Angioedema High 12/22/2023 Tolerated ceftriaxone 03/01/24 Tolerated cephalexin outpatient September 2023 Diclofenac 09/06/2017 Nausea and hypertension Latex Hives Medium 08/29/2017 Latex, Natural Rubber 12/22/2023 Sulfa (Sulfonamide Antibiotics) Rash Medications Medication Sig Dispensed Refills Start Date End Date Status 95-iron uup-dkrxb-lws ( + DHA) 28 mg iron-800 mcg-200 mg Combo Pack Take by oral route. Active pantoprazole EC (Protonix) [address] tablet Take 1 tablet by mouth Daily at Noon. 01/05/2024 Active acetaminophen (Tylenol) 325 mg tablet Take 3 tablets by mouth every 6 hours as needed for Pain. 02/26/2024 Active ibuprofen (Advil) 600 mg tablet Take 1 tablet by mouth every 6 hours as needed for Pain. 02/26/2024 Active polyethylene glycoL (Miralax) 17 gram oral powder packet Take 17 g by mouth daily. 02/27/2024 Active cephALEXin (Keflex) 500 mg capsule Take 2 capsules by mouth 4 times daily. 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 Fluid was described as red. Encounters Date Type Department Care Team Description 02/27/2024 12:48 PM EST - 03/02/2024 11:19 AM EST Hospital En[place] [address] Ros Earl MD Ritondo, Michael E, MD Discharge Disposition: Home 02/27/2024 11:10 AM EST Ancillary Procedure Radiology [facility] [place] [address] Ros Earl MD 02/25/2024 12:07 PM EST Anesthesia Event Birthing [place] [phone] oBwen Osullivan MD 02/24/2024 11:59 PM EST Anesthesia [place] [address] Ros Bedolla MD 02/24/2024 8:59 PM EST - 02/26/2024 4:52 PM EST Hospital Encounter [place] [address] Brianda Petersen MD Discharge Disposition: Home 02/09/2024 4:00 PM EST Office Visit Obstetrics [place] [address] Ros Earl MD History of delivery 02/09/2024 3:35 PM EST Laboratory Appointment Lab 3L [place] [address] History of delivery 02/09/2024 1:54 PM EST - 02/09/2024 11:59 PM [facility] Hospital [place] [phone] Ros Earl MD BMI 45.0-49.9, adult; History of delivery Discharge Disposition: Home 02/09/2024 Orders Only Obstetrics [place] [address] Ros Earl MD Elevated glucose tolerance test 02/09/2024 Travel from Last 3 Months Immunizations Name Administration Dates Next Due Influenza Trivalent, Preservative Free 4 Family History Medical History Relation Comments Hypertension Father Type 2 Diabetes Father Anemia Maternal Aunt Anemia Maternal Grandmother Type 2 Diabetes Maternal Grandmother Anemia Mother Cancer Other High [...] drink = 0.6 oz pur e alcohol) [facility] Utilities Answer Date Recorded In the past 12 months has th e BRIKA, gas, oil, or water [employer] threatened to shut off services in your [...] [facility] the [facility] you [facility] or living in a [place] [facility] [place] facility (including now)? No 02/26/2024 DH IPV Inpatient [...] Mass Index 49.6 02/27/2024 1:13 PM EST Plan of Treatment Health Maintenance Due Date Last Done Comments Chlamydia Screening 05/31/2015 HPV vaccine (1 - 3-dose series) 05/31/2015 HIV screen 2018 Hepatitis C Screening 2018 Lipid Screening 2018 Hepatitis B vaccine (0-59 yrs) (1) 05/31/2019 Pneumococcal Vaccine: At-Ris k 5-49yrs (1 of 2 - PCV) 05/31/2019 Tetanus/Diphtheria/Pertussis Vaccines (1 - Tdap) 05/31/2019 PAP Smear 2021 Covid-19 Vaccine (3 - season) 11/19/202304/2020, 08/15/2020 Influenza (Flu) vaccine (1 o f 1 - Influenza standard series) 11/19/2023 02/11/2014 Medical Devices Implanted Type Area Self Sealing Fuel Tank Repairer Device Identifier Shelf Expiration Date Model / Serial / Lot Pin,Orthosorb ,St,1.3x40mm ([id number]) - [id number] Implanted:Qty : 1 on 08/31/2010 at [facility] IMPLANTS Left: Knee DO NOT USE [employer] Administrator - [id number] 05/03/2013 84-1052 / / [id number] Pin,Orthosorb ,St,1.3x40mm ([id number]) - [id number] Implanted:Qty : 1 on 08/31/2010 at [facility] IMPLANTS Left: Knee DO NOT USE [employer] Administrator - [id number] 05/03/2013 84-1052 / / [id number] Screw,Crtx,St ap,4.5x42mm ([id number]) - [id number] Implanted:Qty : 1 on 02/10/2014 by Benito Zhang MD at [facility] IMPLANTS Right: Tibia DO NOT USE SYNTHES - [id number] / / Screw,Crtx,St ap,4.5x48mm ([id number]) - [id number] Implanted:Qty : 1 on 02/10/2014 by Benito Zhang MD at [facility] IMPLANTS Right: Tibia DO NOT USE SYNTHES - [id number] / / Procedures Procedure Name Priority Date/Time Associated Diagnosis Comments HEMOGRAM STAT 03/01/2024 6:50 AM EST BLOOD CULTURE Routine 02/29/2024 1:17 PM EST HEMOGRAM Routine 02/29/2024 5:36 AM EST HEMOGRAM Routine 02/28/2024 4:56 AM EST LACTATE, WHOLE BLOOD STAT 02/27/2024 3:03 PM EST SCAN, PERIPHERAL BLOOD SHEN 2:08 PM EST CBC (WITH DIFF) STAT 02/27/2024 2:08 PM EST FILM LIBRARY STORAGE ONLY CT ABDOMEN AND PELVIS Routine 02/27/2024 11:05 AM EST COMPREHENSIVE METABOLIC PANEL Routine 02/26/2024 8:14 AM EST CBC (WITH DIFF) Routine 02/26/2024 8:14 AM EST OB HOLD Routine 02/25/2024 6:34 PM EST [id number] Routine 02/25/2024 12:49 PM EST ABORH RECHECK (PATIENT HISTORY FOUND) Routine 02/24/2024 10:41 PM EST TYPE AND SCREEN [place] Routine 02/24/2024 10:41 PM EST SYPHILIS ANTIBODY SCREEN WITH REFLEX Routine 02/24/2024 10:41 PM EST HEMOGRAM Routine 02/24/2024 10:41 PM EST TYPE AND SCREEN ([facility]) Routine 02/09/2024 4:35 PM EST History of delivery SCAN, PERIPHERAL BLOOD Routine 4:35 PM EST History of delivery CBC (WITH DIFF) Routine 02/09/2024 4:35 PM EST History of delivery US OB FOLLOW UP Routine 02/09/2024 2:33 PM EST BMI 45.0-49.9, adult History of delivery from Last 3 Months Results * (ABNORMAL) Hemogram (03/01/2024 6:50 AM EST) Only the most recent of4 resultswithin the time period is included. White Blood Cell 8.89 4.00 - 9.50 x10(3)/mc L 03/01/2024 7:03 AM [facility] Red Blood Cell 3.76(L) 4.00 - 5.21 x10(6)/mc L 03/01/2024 7:03 AM [facility] Hemoglobin 8.7(L) 11.7 - 15.5 g/dL 03/01/2024 7:03 AM [facility] Hematocrit 28.4(L) 35.7 - 45.8 % 03/01/2024 7:03 AM [facility] Mean Cell Volume 75.5(L) 82.6 - 94.4 fL 03/01/2024 7:03 AM [facility] Mean Cell Hemoglobin 23.1(L) 27.1 - 32.0 pg 03/01/2024 7:03 AM [facility] Mean Cell Hemoglobin Concentration 30.6(L) 31.7 - 35.0 g/dL 03/01/2024 7:03 AM [facility] Platelet 329 145 - 357 x10(3)/mc L 03/01/2024 7:03 AM [facility] Mean Platelet Volume 10.7 7.6 - 12.9 fL 03/01/2024 7:03 AM [facility] RDW Standard Deviation 47.2(H) 37.0 - 46.0 fL 03/01/2024 7:03 AM [facility] RDW coefficient of variation 18.4(H) 11.5 - 14.1 % 03/01/2024 7:03 AM [facility] NRBC% auto 0.0 % 03/01/2024 7:03 AM [facility] NRBC Absolute <0.01 <0.01 x10(3)/mc L 03/01/2024 7:03 AM [facility] Blood VENOUS BLOOD SPECIMEN / Unknown Venipuncture / Unknown 03/01/2024 6:50 AM EST 03/01/2024 6:56 AM EST Ros Earl MD HEMATOLOGY ORDERAB LES Performing Organization Address [facility]/ZIP Co de Phone Number [facility] [place] [address] * Blood culture (02/29/2024 1:17 PM EST) Blood Culture No growth at 120 hours 03/05/2024 4:01 PM EST [facility] Blood VENOUS BLOOD SPECIMEN / Unknown Venipuncture / Unknown 02/29/2024 1:17 PM EST 02/29/2024 2:48 PM EST Kandis Squires [facility] MICROBIOLOGY - B LOOD ORDERABLES Performing Organization Address [facility]/ZIP Co de Phone Number [facility] [place] [address] * Lactate, Whole Blood (02/27/2024 3:03 PM EST) Lactate, Whole Blood 2.0 0.5 - 2.2 mmol/L 02/27/2024 3:23 PM EST [facility] Blood VENOUS BLOOD SPECIMEN / Unknown Venipuncture / Unknown 02/27/2024 3:03 PM EST 02/27/2024 3:20 PM EST Ros Earl MD CHEMISTRY ORDERABL ES Performing Organization Address [facility] Co de Phone Number [facility] [place] [address] * (ABNORMAL) Scan, Peripheral Blood (02/27/2024 2:08 PM EST) Only the most recent of2 resultswithin the time period is included. RBC Morphology Abnormal 02/27/2024 3:08 PM EST [facility] Platelet Estimate Normal Normal 02/27/2024 3:08 PM EST [facility] Microcyte 6-10 /HPF 02/27/2024 3:08 PM EST [facility] Ovalocytes 1-5 /HPF 02/27/2024 3:08 PM EST [facility] Platelet Clumps Present(A) (none) 02/27/2024 3:08 PM [facility] Blood VENOUS BLOOD SPECIMEN / Unknown Venipuncture / Unknown 02/27/2024 2:08 PM EST 02/27/2024 2:24 PM EST Ros Earl MD HEMATOLOGY ORDERAB LES [facility] [place] [address] * (ABNORMAL) CBC (with Diff) (02/27/2024 2:08 PM EST) Only the most recent of3 resultswithin the time period is included. White Blood Cell 29.48(H) 4.00 - 9.50 x10(3)/mc L 02/27/2024 3:08 PM [facility] Red Blood Cell 3.92(L) 4.00 - 5.21 x10(6)/mc L 02/27/2024 3:08 PM [facility] Hemoglobin 9.1(L) 11.7 - 15.5 g/dL 02/27/2024 3:08 PM [facility] Hematocrit 28.9(L) 35.7 - 45.8 % 02/27/2024 3:08 PM [facility] Mean Cell Volume 73.7(L) 82.6 - 94.4 fL 02/27/2024 3:08 PM [facility] Mean Cell Hemoglobin 23.2(L) 27.1 - 32.0 pg 02/27/2024 3:08 PM [facility] Mean Cell Hemoglobin Concentration 31.5(L) 31.7 - 35.0 g/dL 02/27/2024 3:08 PM [facility] Platelet 293 145 - 357 x10(3)/mc L 02/27/2024 3:08 PM [facility] Mean Platelet Volume 10.4 7.6 - 12.9 fL 02/27/2024 3:08 PM [facility] RDW Standard Deviation 44.6 37.0 - 46.0 fL 02/27/2024 3:08 PM [facility] RDW coefficient of variation 17.0(H) 11.5 - 14.1 % 02/27/2024 3:08 PM [facility] NRBC% auto 0.0 % 02/27/2024 3:08 PM [facility] NRBC Absolute <0.01 <0.01 x10(3)/mc L 02/27/2024 3:08 PM [facility] Neutrophil % 81.4 % 02/27/2024 3:08 PM [facility] Comment:This is an appended report. These results have been appended to a previously preliminary verified report. Neutrophil Absolute (ANC) - Automated 24.01(H) 1.70 - 6.10 x10(3)/mc L 02/27/2024 3:08 PM [facility] Comment:This is an appended report. These results have been appended to a previously preliminary verified report. Lymph % 7.0 % 02/27/2024 3:08 PM [facility] Comment:This is an appended report. These results have been appended to a previously preliminary verified report. Lymph Absolute 2.05 0.90 - 3.20 x10(3)/mc L 02/27/2024 3:08 PM [facility] Comment:This is an appended report. These results have been appended to a previously preliminary verified report. Monocyte % 5.4 % 02/27/2024 3:08 PM [facility] Comment:This is an appended report. These results have been appended to a previously preliminary verified report. Monocyte Absolute 1.59(H) 0.30 - 0.90 x10(3)/mc L 02/27/2024 3:08 PM [facility] Comment:This is an appended report. These results have been appended to a previously preliminary verified report. Eos % 0.2 % 02/27/2024 3:08 PM [facility] Comment:This is an appended report. These results have been appended to a previously preliminary verified report. Eos Absolute 0.06 0.00 - 0.40 x10(3)/mc L 02/27/2024 3:08 PM EST [facility] Comment:This is an appended report. These results have been appended to a previously preliminary verified report. Basophil % 0.3 % 02/27/2024 3:08 PM EST [facility] Comment:This is an appended report. These results have been appended to a previously preliminary verified report. Baso Absolute 0.08 0.00 - 0.10 x10(3)/mc L 02/27/2024 3:08 PM EST [facility] Comment:This is an appended report. These results have been appended to a previously preliminary verified report. Immature Gran % 5.7 % 3:08 PM EST [facility] Comment:This is an appended report. These results have been appended to a previously preliminary verified report. Immature Gran Absolute 1.69(H) 0.00 - 0.04 x10(3)/mc L 02/27/2024 3:08 PM EST [facility] Comment:This is an appended report. These results have been appended to a previously preliminary verified report. Blood VENOUS BLOOD SPECIMEN / Unknown Venipuncture / Unknown 02/27/2024 2:08 PM EST 02/27/2024 2:24 PM EST Ros Earl MD HEMATOLOGY ORDERAB LES Performing Organization Address City/[facility] Co de Phone Number [facility] [place] [address] * Film Library- Storage Only CT Abdomen & Pelvis (02/27/2024 11:05 AM EST) Narrative [facility] - 02/27/2024 11:05 AM EST This exam is auto-finalizing. It's purpose is for storage only. Ros Earl MD IMG FILM LIBRARY O RDERABLES Performing Organization Address City/[facility]/ZIP Co de Phone Number [place], [place] * (ABNORMAL) Comprehensive metabolic panel (02/26/2024 8:14 AM [facility]) Glucose 76 65 - 199 mg/dL 02/26/2024 10:05 AM [facility] Comment:Glucose Concentratio n >=200 mg/dL plus symptoms is consistent with Diabetes Mellitus. Blood Urea Nitrogen 7(L) 8 - 18 mg/dL 02/26/2024 10:05 AM [facility] Creatinine 0.63(L) 0.70 - 1.20 mg/dL 02/26/2024 10:05 AM [facility] Sodium 138 135 - 145 mMol/L 02/26/2024 10:05 AM [facility] Potassium 4.1 3.5 - 5.0 mMol/L 02/26/2024 10:05 AM [facility] Chloride 105 98 - 107 mMol/L 02/26/2024 10:05 AM [facility] Carbon Dioxide 20(L) 22 - 31 mMol/L 02/26/2024 10:05 AM [facility] Anion Gap 13 5 - 15 mMol/L 02/26/2024 10:05 AM [facility] Calcium 8.7 8.5 - 10.5 mg/dL 02/26/2024 10:05 AM [facility] Protein, Total 6.2 6.1 - 8.0 g/dL 02/26/2024 10:05 AM [facility] Albumin 2.9(L) 3.2 - 5.2 g/dL 02/26/2024 10:05 AM [facility] Aspartate Aminotransferase 26 <=30 unit/L 02/26/2024 10:05 AM [facility] Alanine Aminotransferase 14 0 - 30 unit/L 02/26/2024 10:05 AM [facility] Alkaline Phosphatase 117(H) 35 - 105 unit/L 02/26/2024 10:05 AM [facility] Bilirubin, Total 0.2 <=1.3 mg/dL 02/26/2024 10:05 AM EST [facility] Est Glomerular Filtration Rate - Female 128 mL/min/1. 73 m?? 02/26/2024 10:05 AM EST [facility] Comment: This patient's estimated GFR [...] AM EST Brianda Petersen MD CHEMISTRY ORDERABLES Performing Organization Address City/[facility]/ZIP Co de Phone Number [facility] [place] [address] * OB Hold (02/25/2024 6:34 PM EST) OB Hold Specimen Status Reviewed in lab; specimen held per protocol. 02/26/2024 10:52 AM EST [facility] Tissue PLACENTAL STRUCTURE / Unknown Non Blood Collection / Unknown 02/25/2024 6:34 PM EST 02/26/2024 10:39 AM EST Brianda Petersen MD PATHOLOGY/CYTOLOGY O RDERABLES [facility] [place] [address] * [id number] (02/25/2024 12:49 PM EST) Narrative Mary Ann [...] End time: 02/25/2024 12:45 PM [facility] [place] Patient Prep Position: Sitting Prep: Patient Draped, [...] R lateral decub position. Performed by: ?? Resident/CLUTCH SPECIALIST: ? Bowen Osullivan MD ?? Attending Physician: ? Mary Ann Bauer MD Authorized by: Mary Ann Bauer MD ?? ~~~~~~~~~~~~~~~~~~~~~~~~~~~~~~~~~~~~~~~~~~~~~~~~~~~~~~~~~~~~ Mary Ann Bauer MD ARCHITECTURE INSTRUCTOR [facility] * ABORH RECHECK (PATIENT HISTORY FOUND) (02/24/2024 10:41 PM EST) Pathologist [facility] ABORH Recheck Progress Complete 02/25/2024 1:01 AM EST [facility] Blood VENOUS BLOOD SPECIMEN / Unknown Venipuncture / Unknown 02/24/2024 10:41 PM EST 02/24/2024 10:58 PM EST Brianda Petersen MD BLOOD BANK LAB ORDER LES [facility] [place] [id number] * Syphilis Screening Antibody with reflex RPR (02/24/2024 10:41 PM EST) [facility] Syphilis IgG/IgM Negative Negative 02/24/2024 11:43 PM EST [facility] Blood VENOUS BLOOD SPECIMEN / Unknown Venipuncture / Unknown 02/24/2024 10:41 PM EST 02/24/2024 11:07 PM EST Brianda Petersen MD CHEMISTRY ORDERABLES [facility] [place] [address] * Type and screen ([facility] (02/24/2024 10:41 PM EST) Only the most recent of2 resultswithin the time period is included. [facility] ABORH Type A POSITIVE 02/25/2024 12:05 AM EST [facility] PATIENT HISTORY Found 02/25/2024 12:05 AM EST [facility] Expires at [id number] on: 02-27-2024 02/25/2024 12:05 AM EST [facility] ANTIBODY SCREEN AUTOMATED Negative 02/25/2024 12:05 AM EST [facility] T&S only valid at [facility] 02/25/2024 12:05 AM EST [facility] Blood VENOUS BLOOD SPECIMEN / Unknown Venipuncture / Unknown 02/24/2024 10:41 PM EST 02/24/2024 10:58 PM EST Narrative [facility] - 02/25/2024 12:05 AM EST This Type and Screen result is only valid at the [facility] Brianda Petersen MD BLOOD BANK LAB ORDER LES [facility] [place] [address] * US OB Follow Up (02/09/2024 2:33 PM EST) [employer] WORKSTATION ID [id number] [facility] Anatomical Region Laterality Modality Pelvis, Abdomen Ultrasound [...] who have questions, please contact the health women's health care nurse practitioner that requested your imaging first. ? Bucky Pizarro, Staff Physician Electronically Signed Final Report ?? 02/09/2024 02:42 pm Narrative 02/09/2024 2:42 PM EST OBSTETRICS REPORT ?(Signed Final 02/09/2024 02:42 pm) PATIENT INFO: ID #: ? [id number] ?: ??[birth year] (23 yrs)(F) Name: ? ANDREA Michelle ? Visit Date: 02/09/2024 02:30 pm ? DANYA PERFORMED BY: Performed By: ? Howard COPELAND, ??Indira Attending: ?Bucky Pizarro MD Referred By: ?ROS EARL Location: ? [place] SERVICE(S) PROVIDED: UOBFOL - Efw - Growth ??- [place] - [id number] ?[id number] UB - Biophysical Profile (without NST) - [id number] ? [id number] INDICATIONS: 36 weeks gestation of ?Z3A.36 desies [...] visualized Left Ovary Not visualized Procedure Note PscEvi hayden MD - 02/09/2024 OBSTETRICS REPORT (Signed Final 02/09/2024 02:42 pm) PATIENT INFO: ID #: [id number] : [birth year] (23 yrs)(F) Name: ANDREA Michelle Visit Date: 02/09/2024 02:30 pm THERRIAULT PERFORMED BY: Performed By: Indira Lawrence RDMS Attending: Bucky Pizarro MD Referred By: ROS EARL Location: [place] SERVICE(S) PROVIDED: UOBFOL - Efw - Growth - [place] - [id number] UBPP - Biophysical Profile (without NST) - [id number] INDICATIONS: 36 weeks gestation of Z3A.36 desies [...] who have questions, please contact the health women's health care nurse practitioner that requested your imaging first. Bucky Pizarro, Staff Physician Electronically Signed Final Report 02/09/2024 02:42 pm Ros Earl MD IMG US OB ORDERABL ES from Last 3 Months Advance Directives * Attempt Cardiopulmonary Resuscitation - Inpatient (Latest Code Status on File) Date Activated Date Inactivated Comments 02/27/2024 1:45 PM 03/02/2024 1:25 PM Question Answer Comments Code Status decision made by: Patient * Attempt Cardiopulmonary Resuscitation - Inpatient Date Activated Date Inactivated Comments 02/24/2024 9:18 PM 02/26/2024 6:57 PM Question Answer Comments Code Status decision made by: [place] - ho spitalization * Full Code Date Activated Date Inactivated Comments 09/08/2014 1:06 [...] based on the parent(s) wishe(s). Care Teams Caretaker Relationship Specialty Start Date End Date None None PCP - General 12/22/23
--- OUTSIDE RECORDS SUMMARY | 2024-05-05 10:43 | XMS_ITS | Encounter Summary ---
Author Organization [facility] Address [facility] [place] [address] Care Team Providers Care [employer] Name Role Phone None Primary Care Provider Unavailabl e Encounter Details Date Type Department Care Team (Late st Contact Info) Description 02/09/2024 4:00 PM EST Office Visit Obstetrics [place] [address] Ros Earl MD [facility] [address] OBSTETRICS [place] [address] History of delivery Social History Tobacco Use [...] Sign Reading Time Taken Comments Blood Pressure 138/69 02/09/2024 3:01 PM EST Pulse - - Temperature - - Respiratory Rate - - Oxygen Saturation - - Inhaled Oxygen Concentration - - Weight 127.2 kg (280 lb 8 oz) 02/09/2024 3:01 PM EST Height - - Body Mass Index 51.3 01/17/2020 8:20 AM EDT documented in this encounter Progress Notes * Ros Earl MD - 02/09/2024 4:00 PM EST Gestational age: 36w6d, returns for follow-up ultrasound and limited MFM consult. FM felt, no LOF, no bleeding or vilma. 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 Ultrasound Date: 02/10/2024 Growth appropriate for gestational age Amniotic fluid volume increased Presentation cephalic Placenta anterior anatomy limited unremarkable Physical Exam BP 138/69 Wt 127.2 kg (280 lb 8 oz) BMI 51.30 kg/m?? General: alert, well appearing, in no apparent distress HEENT: normocephalic, atraumatic Abdomen: Gravid, soft, nontender Neurologic:alert, oriented, normal speech, no focal findings or movement disorder noted Psychiatric: Affect is Appropriate. Assessment and Recommendations: 23 y.o. year old female at 36w6d weeks gestation desires TOLAC Previously counseled on RBA TOLAC vs RCS. We reviewed this counseling. I offered IOL after 39 weeks given her high BMI and lives in a community without access to TOLAC support. Counseled IOL may increase the risk of uterine rupture 2 fold to ~1%. GBBS planned locally next week. Wants Lilleta IUD at 6 weeks . Has been unable to tolerate 3hr OGTT and local OB unable to help obtain glucometer and supplies dueto insurance issue. Given glucometer, strips and lancets for QID testing. Type and screen, CBC today. I appreciate the opportunity to be involved in this patients care, and am available if further questions should arise. ROS EARL MD 02/10/2024 Cc: Ros Earl, with copy of ultrasound report documented in this encounter Plan of Treatment Not on file documented as of this encounter Results * (ABNORMAL) CBC (with Diff) (02/09/2024 4:35 PM EST) White Blood Cell 11.35(H) 4.00 - 9.50 x10(3)/mc L 02/09/2024 5:40 PM [facility] Red Blood Cell 4.44 4.00 - 5.21 x10(6)/mc L 02/09/2024 5:40 PM [facility] Hemoglobin 10.2(L) 11.7 - 15.5 g/dL 02/09/2024 5:40 PM [facility] Hematocrit 33.2(L) 35.7 - 45.8 % 02/09/2024 5:40 PM [facility] Mean Cell Volume 74.8(L) 82.6 - 94.4 fL 02/09/2024 5:40 PM [facility] Mean Cell Hemoglobin 23.0(L) 27.1 - 32.0 pg 02/09/2024 5:40 PM [facility] Mean Cell Hemoglobin Concentration 30.7(L) 31.7 - 35.0 g/dL 02/09/2024 5:40 PM [facility] Platelet 323 145 - 357 x10(3)/mc L 02/09/2024 5:40 PM [facility] Mean Platelet Volume 10.8 7.6 - 12.9 fL 02/09/2024 5:40 PM [facility] RDW Standard Deviation 44.1 37.0 - 46.0 fL 02/09/2024 5:40 PM [facility] RDW coefficient of variation 16.3(H) 11.5 - 14.1 % 02/09/2024 5:40 PM [facility] NRBC% auto 0.0 % 02/09/2024 5:40 PM [facility] NRBC Absolute <0.01 <0.01 x10(3)/mc L 02/09/2024 5:40 PM [facility] Neutrophil % 67.7 % 02/09/2024 5:40 PM EST [facility] Neutrophil Absolute (ANC) - Automated 7.69(H) 1.70 - 6.10 x10(3)/mc L 02/09/2024 5:40 PM [facility] Lymph % 22.3 % 02/09/2024 5:40 PM [facility] Lymph Absolute 2.53 0.90 - 3.20 x10(3)/mc L 02/09/2024 5:40 PM EST [facility] Monocyte % 8.0 % 02/09/2024 5:40 PM [facility] Monocyte Absolute 0.91(H) 0.30 - 0.90 x10(3)/mc L 02/09/2024 5:40 PM [facility] Eos % 0.4 % 02/09/2024 5:40 PM [facility] Eos Absolute 0.04 0.00 - 0.40 x10(3)/mc L 02/09/2024 5:40 PM EST [facility] Basophil % 0.2 % 02/09/2024 5:40 PM [facility] Baso Absolute <0.04 0.00 - 0.10 x10(3)/mc L 02/09/2024 5:40 PM EST [facility] Immature Gran % 1.4 % 5:40 PM [facility] Immature Gran Absolute 0.16(H) 0.00 - 0.04 x10(3)/mc L 02/09/2024 5:40 PM [facility] Blood VENOUS BLOOD SPECIMEN / Unknown Venipuncture / Unknown 02/09/2024 4:35 PM EST 02/09/2024 4:36 PM EST Ros Earl MD HEMATOLOGY ORDERAB LES [facility] [place] [address] * Type and screen ([facility] (02/09/2024 4:35 PM EST) ABORH Type A POSITIVE 02/09/2024 6:19 PM EST [facility] PATIENT HISTORY Unneccessary 02/09/2024 6:19 PM EST [facility] Expires at [id number] on: 02-09-2024 02/09/2024 6:19 PM EST [facility] ANTIBODY SCREEN AUTOMATED Negative 02/09/2024 6:19 PM EST [facility] T&S only valid at [facility] 02/09/2024 6:19 PM EST [facility] Blood VENOUS BLOOD SPECIMEN / Unknown Venipuncture / Unknown 02/09/2024 4:35 PM EST 02/09/2024 4:36 PM EST Narrative [facility] - 02/09/2024 6:19 PM EST This Type and Screen result is only valid at the [facility] Ros Earl MD BLOOD BANK LAB ORD ERABLES [facility] [place] [address] documented in this encounter Visit Diagnoses Diagnosis History of delivery Other postprocedural status documented in this encounter Care Teams [employer] Relationship Specialty Start Date End Date None None PCP - General 12/22/23 documented as of this encounter
--- OUTSIDE RECORDS SUMMARY | 2024-05-05 10:43 | XMS_ITS | Encounter Summary ---
[place] [address] Care Team Providers Care Production Cost Estimator Name Role Phone None Primary Care Provider Unavailabl e Reason for Referral * Diagnostic Test (Routine) - Closed Specialty Diagnoses / Procedures Referred By Contac t Referred To Contact Radiology Diagnoses Morbid obesity Supervision of other high risk pregnancies, unspecified trimester Procedures US OB Detailed Morphology Winsome Taveras MD [address] [place] [address] [place] [address] [facility] [place] [address] Referral ID Status Reason Start Date Expiration Date V isits Requested Visits Authorized [id number] Closed Specialty Service Requested 12/15/2023 06/13/2025 1 1 Reason for Visit * Diagnostic Test (Routine) - Closed Specialty Diagnoses / Procedures Referred By Contac t Referred To Contact Radiology Diagnoses Morbid obesity Supervision of other high risk pregnancies, unspecified trimester Procedures US OB Detailed Morphology Winsome Taveras MD [address] [place] [address] [place] [address] [facility] [place] [address] Referral ID Status Reason Start Date Expiration Date V isits Requested Visits Authorized [id number] Closed Specialty Service Requested 12/15/2023 06/13/2025 1 1 Encounter Details Date Type Department Care Team (Latest Contact Info) Description 12/22/2023 2:59 PM EDT - 12/22/2023 11:59 PM EDT Hospital [place] [address] Winsome Taveras MD [facility] [address] Morbid obesity; Supervision of other high risk pregnancies, unspecified trimester Discharge Disposition: Home Social History Tobacco Use [...] Date End Date cephALEXin (Keflex) 500 mg Capsule TAKE ONE CAPSULE BY MOUTH FOUR TIMES A DAY 11/22/2019 02/09/2024 sertraline (ZOLOFT) 100 mg TabletIndications:Effus ion of knee joint, left Take 2 tablets by mouth daily. 90 tablet 3 12/01/2017 02/09/2024 methylphenidate HCl (CONCERTA) 27 mg Tablet Extended Rel 24 hrIndications:Effusion of knee joint, left Take 1 tablet by mouth every morning. 90 tablet 12/01/2017 02/09/2024 naproxen (EC NAPROSYN) 500 mg Tablet, Delayed Release (E.C.)Indications:Effus ion of knee joint, left Take 1 tablet by mouth 2 times daily (with meals). 60 tablet 3 12/01/2017 02/09/2024 predniSONE (DELTASONE) 5 mg TabletIndications:AIDAN (juvenile idiopathic arthritis) Take 2 tablets by mouth daily. 60 tablet 3 07/28/2017 02/09/2024 traZODone (DESYREL) 50 mg Tablet Take 50 mg by mouth nightly. 02/09/2024 meloxicam (MOBIC) 15 mg TabletIndications:AIDAN (juvenile idiopathic arthritis) Take 1 tablet by mouth daily. 30 tablet 12 09/02/2015 02/09/2024 documented as of this encounter Plan of Treatment Not on file documented as of this encounter Procedures Procedure Name Priority Date/Time Associated Diagnosis Comments US OB DETAILED MORPHOLOGY Routine 12/22/2023 4:02 PM EDT Morbid obesity Supervision of other high risk pregnancies, unspecified trimester documented in this encounter Results * US OB Detailed Morphology (12/22/2023 4:02 PM EDT) [employer] WORKSTATION ID [id number] RAD Anatomical Region Laterality Modality Pelvis, Abdomen Ultrasound 12/22/2023 3:03 PM EDT Impressions 12/22/2023 3:54 PM EDT 3rd Trimester - Detailed Morphology - Summary Single intrauterine with a gestational age of 29w 5d based on LMP ??(05/28/23) Composite age based on the current ultrasound alone is 29w 5d. Estimated weight corresponds to the 33th percentile for 29w 5d. Current growth parameters are consistent with prior dating indicating normal growth. Amniotic fluid volume is normal. Detailed anatomic evaluation was performed and no structural abnormalities are noted. Anatomical survey is limited due to the late gestational age. Thank you for letting us participate in the care of this patient. If you are a health care provider and have any questions regarding this report, please contact the number above. For patients who have questions, please contact the health resident care associate that requested your imaging first. ?Ros Ayala, Staff Physician Electronically Signed Final Report ?? 12/22/2023 03:54 pm Narrative 12/22/2023 3:54 PM EDT OBSTETRICS REPORT ?(Signed Final 12/22/2023 03:54 pm) PATIENT INFO: ID #: ? [id number] ?: ??[birth year] (23 yrs)(F) Name: ? ANDREA M ? Visit Date: 12/22/2023 03:03 pm ? DANYA PERFORMED BY: Performed By: ? Maya Peacock RDMS Attending: ?Jamie ROSE, Ros Jha Referred By: ?WINSOME TAVERAS Location: ? [place] SERVICE(S) PROVIDED: [facility] - Detailed Morphology - [id number] ? [id number] INDICATIONS: 29 weeks gestation of ?Z3A.29 short interval between pregnancies affect antepartum, hx of section, BMI =48 VITAL SIGNS: Weight (lb): 270.0 Height: ?5'3 ? BMI: ? 47.82 EVALUATION: Num Of Fetuses: ? 1 Cardiac Activity: ? Observed, normal rhythm Presentation: ? Cephalic Placenta: ? Anterior P. Cord Insertion: ?Within Normal Limits Amniotic Fluid RENETTA FV: ?Normal RENETTA Sum(cm) ? Largest Pocket(cm) 16.4 ?5.3 RUQ(cm) ? RLQ(cm) ? LUQ(cm) ?LLQ(cm) 3.4 ? 5.3 ? 3.7 ?4.0 --------- BIOMETRY: --------- BPD: ?75.3 ??mm ? G.Age: ?? 30w 1d ?54 ??% OFD: ?96.1 ??mm HC: ?275.3 ??mm ? G.Age: ?? 30w 1d ?25 ??% AC: ?255.9 ??mm ? G.Age: ?? 29w 5d ?46 ??% FL: ? 55.1 ??mm ? G.Age: ?? 29w 0d ?19 ??% HUM: ?47.0 ??mm ? G.Age: ?? 27w 5d ? 8 ??% CER: ?33.5 ??mm ? G.Age: ?? 29w 2d ?39 ??% NB: ?8.0 ??mm LV: ?7.5 ??mm CM: ?4.9 ??mm CI: ?78.4 ??% ? 70 - 86 FL/HC: ? 20.0 ??% ? 19.2 - 21.4 HC/AC: ? 1.08 ?0.99 - 1.21 FL/BPD: ?73.2 ??% ? 71 - 87 FL/AC: ? 21.5 ??% ? Est. FW: ?1422 ??gm ?3 lb 2 oz ?33 ??% OB HISTORY: : ?4 ? Term: ?? 3 Living: ? 3 GESTATIONAL AGE: LMP: ? 29w 5d ?Date: ??05/28/23 ? JOSELUIS: ?? 03/03/24 U/S Today: ? 29w 5d ?JOSELUIS: ?? 03/03/24 Best: ?29w 5d ?? Det. By: ??LMP ??(05/28/23) ?JOSELUIS: ?? 03/03/24 TARGETED ANATOMY: Central Nervous System Calvarium/Cranial V.: ??Within Normal Limits Intracranial Grace: ? Within Normal Limits Cavum: ? Within Normal Limits Parenchyma: ?Within Normal Limits Lateral Ventricles: ?Within Normal Limits Choroid Plexus: ?Within Normal Limits Cereb./Vermis: ? Within Normal Limits Cisterna Magna: ?Within Normal Limits Midline Falx: ?Within Normal Limits Spine Cervical: ?Visualized Thoracic: ?Visualized Lumbar: ?Visualized Sacral: ?Visualized Shape/Curvature: ? Visualized Head/Neck Face: ?Limited Views Lips: ?Within Normal Limits Neck: ?Limited Views Nuchal Fold: ? Not visualized due to late gestational age Nasal Bone: ?Present Profile: ? Visualized Orbits/Eyes: ? Not well seen due to Mandible: ?Visualized Maxilla: ? Visualized Thorax Thoracic Contour: ?Within Normal Limits Lungs: ? Visualized 4 Chamber View: ?Within Normal Limits Cardiac Activity: ?Normal Rhythm Rt Outflow Tract: ?Visualized Lt Outflow Tract: ?Visualized Aortic Arch: ? Visualized Ductal Arch: ? Visualized SVC: ? Visualized Cardiac [place]: ?Visualized Diaphragm: ? Visualized 3 Vessel View: ? Visualized 3 V Trachea View: ?Visualized IVC: ? Visualized Crossing: ?Visualized Abdomen Ventral Wall: ?Not visualized due to late gestational age Cord Insertion: ?Not visualized due to late gestational age Situs: ? Normal Stomach: ? Visualized Liver: ? Visualized Lt Kidney: ? Visualized Rt Kidney: ? Visualized Bladder: ? Visualized Bowel: ? Visualized Extremities Lt Humerus: ?Visualized Rt Humerus: ?Limited Views Lt Forearm: ?Visualized Rt Forearm: ?Limited Views Lt Hand: ? Limited Views Rt Hand: ? Visualized Lt Femur: ?Visualized Rt Femur: ?Visualized Lt Lower Leg: ?Limited Views Rt Lower Leg: ?Limited Views Lt Foot: ? Limited Views Rt Foot: ? Limited Views Other Umbilical Cord: ?3 vessel cord Genitalia: ? Male CERVIX UTERUS ADNEXA: Right Ovary Not Visualized Left Ovary Not Visualized Procedure Note Ros Ayala MD - 12/22/2023 OBSTETRICS REPORT (Signed Final 12/22/2023 03:54 pm) PATIENT INFO: ID #: [id number] : [birth year] (23 yrs)(F) Name: ANDREA Michelle Visit Date: 12/22/2023 03:03 pm THERRIAULT PERFORMED BY: Performed By: Maya Peacock RDMS Attending: Ros Ayala MD Referred By: WINSOME TAVERAS Location: [place] SERVICE(S) PROVIDED: [facility] - Detailed Morphology - [id number] INDICATIONS: 29 weeks gestation of Z3A.29 short interval between pregnancies affect antepartum, hx of section, BMI =48 VITAL SIGNS: Weight (lb): 270.0 Height: 5'3 BMI: 47.82 EVALUATION: Num Of Fetuses: 1 Cardiac Activity: Observed, normal rhythm Presentation: Cephalic Placenta: Anterior P. Cord Insertion: Within Normal Limits Amniotic Fluid RENETTA FV: Normal RENETTA Sum(cm) Largest Pocket(cm) 16.4 5.3 RUQ(cm) RLQ(cm) LUQ(cm) LLQ(cm) 3.4 5.3 3.7 4.0 --------- BIOMETRY: --------- BPD: 75.3 mm G.Age: 30w 1d 54 % OFD: 96.1 mm HC: 275.3 mm G.Age: 30w 1d 25 % AC: 255.9 mm G.Age: 29w 5d 46 % FL: 55.1 mm G.Age: 29w 0d 19 % HUM: 47.0 mm G.Age: 27w 5d 8 % CER: 33.5 mm G.Age: 29w 2d 39 % NB: 8.0 mm LV: 7.5 mm CM: 4.9 mm CI: 78.4 % 70 - 86 FL/HC: 20.0 % 19.2 - 21.4 HC/AC: 1.08 0.99 - 1.21 FL/BPD: 73.2 % 71 - 87 FL/AC: 21.5 % 20 - 24 Est. FW: 1422 gm 3 lb 2 oz 33 % OB HISTORY: : 4 Term: 3 [place] GESTATIONAL AGE: LMP: 29w 5d Date: 05/28/23 JOSELUIS: 03/03/24 U/S Today: 29w 5d JOSELUIS: 03/03/24 Best: 29w 5d Det. By: LMP (05/28/23) JOSELUIS: 03/03/24 TARGETED ANATOMY: Central Nervous System Calvarium/Cranial V.: Within Normal Limits Intracranial Grace: Within Normal Limits Cavum: Within Normal Limits Parenchyma: Within Normal Limits Lateral Ventricles: Within Normal Limits Choroid Plexus: Within Normal Limits Cereb./Vermis: Within Normal Limits Cisterna Magna: Within Normal Limits Midline Falx: Within Normal Limits Spine Cervical: Visualized Thoracic: Visualized Lumbar: Visualized Sacral: Visualized Shape/Curvature: Visualized Head/Neck Face: Limited Views Lips: Within Normal Limits Neck: Limited Views Nuchal Fold: Not visualized due to late gestational age Nasal Bone: Present Profile: Visualized Orbits/Eyes: Not well seen due to Mandible: Visualized Maxilla: Visualized Thorax Thoracic Contour: Within Normal Limits Lungs: Visualized 4 Chamber View: Within Normal Limits Cardiac Activity: Normal Rhythm Rt Outflow Tract: Visualized Lt Outflow Tract: Visualized Aortic Arch: Visualized Ductal Arch: Visualized SVC: Visualized Cardiac [place]: Visualized Diaphragm: Visualized 3 Vessel View: Visualized 3 V Trachea View: Visualized IVC: Visualized Crossing: Visualized Abdomen Ventral Wall: Not visualized due to late gestational age Cord Insertion: Not visualized due to late gestational age Situs: Normal Stomach: Visualized Liver: Visualized Lt Kidney: Visualized Rt Kidney: Visualized Bladder: Visualized Bowel: Visualized Extremities Lt Humerus: Visualized Rt Humerus: Limited Views Lt Forearm: Visualized Rt Forearm: Limited Views Lt Hand: Limited Views Rt Hand: Visualized Lt Femur: Visualized Rt Femur: Visualized Lt Lower Leg: Limited Views Rt Lower Leg: Limited Views Lt Foot: Limited Views Rt Foot: Limited Views Other Umbilical Cord: 3 vessel cord Genitalia: Male CERVIX UTERUS ADNEXA: Right Ovary Not Visualized Left Ovary Not Visualized IMPRESSION 3rd Trimester - Detailed Morphology - Summary Single intrauterine with a gestational age of 29w 5d based on LMP (05/28/23) Composite age based on the current ultrasound alone is 29w 5d. Estimated weight corresponds to the 33th percentile for 29w 5d. Current growth parameters are consistent with prior dating indicating normal growth. Amniotic fluid volume is normal. Detailed anatomic evaluation was performed and no structural abnormalities are noted. Anatomical survey is limited due to the late gestational age. Thank you for letting us participate in the care of this patient. If you are a health care provider and have any questions regarding this report, please contact the number above. For patients who have questions, please contact the health resident care associate that requested your imaging first. Ros Ayala, Staff Physician Electronically Signed Final Report 12/22/2023 03:54 pm Winsome Taveras MD IM US OB ORDERABLES documented in this encounter Visit Diagnoses Diagnosis Morbid obesity Supervision of other high risk pregnancies, unspecified trimester documented in this encounter Care Teams Production Cost Estimator Relationship Specialty Start Date End Date None None PCP - General 12/22/23 documented as of this encounter
--- OUTSIDE RECORDS SUMMARY | 2024-05-05 10:44 | XMS_ITS | Encounter Summary ---
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 Ros Bean MD [address] [place] [phone] [facility] Pedi Rheum [address] [place] [phone] Referral ID Status Reason Start Date Expiration Date V isits Requested Visits Authorized [id number] Closed Consult, Test & Treat [facility] PCP Updated and/or Approved 07/20/2015 07/19/2016 1 1 Encounter Details Date Type Department Care Team (Latest Contact Info) Description 09/02/2015 2:00 PM EDT Office Visit [place] [address] Hema Thorne MD [facility] [place] [address] AIDAN (juvenile idiopathic arthritis) Social [...] 09/02/2015 2:0 7 PM EDT Growth Chart: [facility] (Girls, 2- 20 Years) documented in this encounter Progress Notes * Hema Thorne MD - 09/02/2015 2:45 PM EDT This is a new patient consultation seen at the request of Ros Bean on Samreen Martinez. The patient is a 15-year-old female who [...] 3:18 PM EDT) Neutrophil % 48.0 % [facility] Neutrophil Absolute 4.16 1.50 - 8.00 x10(3)/[facility] Lymph % 41.9 % [facility] Lymphocytes Abs 3.6 1.2 - 5.2 x10(3)/[facility] Monocyte % 8.5 % [facility] Monocyte Abs 0.7 0.2 - 1.0 x10(3)/[facility] Eos % 1.2 % [facility] Eosinophils Abs 0.1 0.0 - 0.5 x10(3)/[facility] Basophil % 0.2 % [facility] Baso Absolute 0.0 0.0 - 0.2 x10(3)/[facility] Immature Gran % 0.20 % [facility] Comment: Immature granulocytes(IG's)percentage and absolute count will include metamyelocytes, myelocytes, and promyelocytes. Blood smears from CBCs yielding IG's will be scanned manually for concordance. If this scan disagrees with the automated IG or if promyelocytes are noted, a manual differential will be performed. Immature Gran Absolute 0.02 0.00 - 0.05 x10(3)/[facility] Blood specimen (specimen) 09/02/2015 3:18 PM EDT 09/02/2015 3:22 PM EDT Narrative Resulting Agency Comment Spec In Lab Hema Thorne MD HEMATOLOGY ORDERABLE S [facility] [place] [address] * (ABNORMAL) Hemogram (09/02/2015 3:18 PM EDT) White Blood Cell 8.7 4.5 - 13.0 x10(3)/mc L [facility] Red Blood Cell 4.77 4.10 - 5.10 x10(6)/mc L [facility] Hemoglobin 12.5 12.0 - 16.0 gm/dL [facility] Hematocrit 37.4 36.0 - 46.0 % [facility] Mean Cell Volume 78.4 76.0 - 98.0 fL [facility] Mean Cell Hemoglobin 26.2 25.0 - 35.0 pg [facility] Mean Cell Hemoglobin Concentration 33.4 32.0 - 36.5 gm/dL [facility] Platelet 338 145 - 370 x10(3)/mc L [facility] RDW Standard Deviation 42.3 35.0 - 46.0 fL [facility] RDW coefficient of variation 14.7(H) 10.9 - 14.4 % [facility] Mean Platelet Volume 10.4 9.0 - 12.0 fL [facility] Blood specimen (specimen) 09/02/2015 3:18 PM EDT 09/02/2015 3:22 PM EDT Narrative Resulting Agency Comment Spec In Lab Hema Thorne MD HEMATOLOGY ORDERABLE S Performing Organization Address [facility] Co de Phone Number [facility] [place] [address] * Lyme IgG & IgM Antibody (09/02/2015 3:18 PM EDT) Lyme Antibody Neg Neg [facility] Blood specimen (specimen) 09/02/2015 3:18 PM EDT 09/03/2015 7:47 AM EDT Narrative Resulting Agency Comment Spec In Lab Hema Thorne MD IMMUNOLOGY ORDERABLE S Performing Organization Address [facility] Co de Phone Number [facility] [place] [address] * (ABNORMAL) Comprehensive metabolic panel (non-fasting) (09/02/2015 3:18 PM EDT) Glucose 98 65 - 199 mg/dL [facility] Comment:Diabetes: >=200 mg/d L plus symptoms Blood Urea Nitrogen 10 10 - 20 mg/dL [facility] Creatinine 0.84(H) 0.20 - 0.70 mg/dL [facility] Comment: Please note that the pediatric reference intervals supplied above were not validated at [facility]. Results from pediatric patients should be interpreted in conjunction to the patient's age, height and muscle mass. Sodium 142 135 - 145 mmol/L [facility] Potassium 4.3 3.5 - 5.0 mmol/L [facility] Comment: Please note: ??Patients with WBC >100,000 may have falsely elevated Potassium levels. ??For accurate Potassium quantification in these patients send serum separator tube (gold top) for subsequent determinations. ??Contact the Clinical Chemistry Laboratory if there are any questions. Chloride 103 98 - 107 mmol/L [facility] Carbon Dioxide 25 22 - 31 mmol/L [facility] Anion Gap 14 5 - 15 mmol/L [facility] Calcium 9.0 8.5 - 10.5 mg/dL [facility] Protein, Total 7.2 6.4 - 8.3 gm/dL [facility] Albumin 4.0 3.2 - 5.2 gm/dL [facility] Aspartate Aminotransferase 18 5 - 30 unit/L [facility] Alanine Aminotransferase 19 0 - 25 unit/L [facility] Alkaline Phosphatase 67(L) 80 - 250 unit/L [facility] Bilirubin, Total <0.2 <=1.0 mg/dL [facility] Bilirubin, Direct <0.1 0.0 - 0.3 mg/dL [facility] Est Glomerular Filtration Rate See note >=60 [facility] Comment: Calculated GFR not appropriate for [...] the following links into your internet browser. [email or web address] Blood specimen (specimen) 09/02/2015 3:18 PM EDT 09/02/2015 3:22 PM EDT Narrative Resulting Agency Comment Spec In Lab Hema Thorne MD CHEMISTRY ORDERABLES Performing Organization Address [facility] Co de Phone Number [facility] [place] [address] * HLA-B27 (09/02/2015 3:18 PM EDT) HLA-B27 Negative [facility] HLA B27 Interpretation HLA B27 antigen was not detected. Method: Flow Cytometry Reference: 1.Yaa DA, Andres DIALLO, Pollo Feliz, et al: Ankylosing spondylitis and HLA-27. Lancet 1973;1:904-907 2.Mignon J, Chago CERDA: HLA-B27 typing by use of flow cytofluorometr y. Clin Chem 1987;33:1619-1 623 [facility] White Blood Cell 8.7 4.5 - 13.0 x10(3)/m cL [facility] Blood specimen (specimen) 09/02/2015 3:18 PM EDT 09/02/2015 3:22 PM EDT Narrative Resulting Agency Comment Spec In Lab Hema Thorne MD HEMATOLOGY ORDERABLE S Performing Organization Address [facility] Co de Phone Number [facility] [place] [address] * High Sensitivity CRP (09/02/2015 3:18 PM EDT) Pathologist [facility] C-Reactive Protein High Sensitivity 4.7 mg/L [facility] Comment: Interpretations: 1) For accurate [...] from the test package insert) References: 1. Benito UCBA et. al. ??AHA/CDC Scientific Statement: Markers of Inflammation and Cardiovascular Disease. ??Circulation 2003; 107:499-511 2. Ridker PM. ??Clinical applications of C-reactive protein for cardiovascular disease detection and prevention. ??Circulation 2003; 107:363-369 Blood specimen (specimen) 09/02/2015 3:18 PM EDT 09/02/2015 3:22 PM EDT Narrative Resulting Agency Comment Spec In Lab Hema Thorne MD CHEMISTRY ORDERABLES Performing Organization Address [facility] Co de Phone Number [facility] [place] [address] * (ABNORMAL) Sedimentation rate (09/02/2015 3:18 PM EDT) Sedimentation Rate Automated 22(H) 0 - 20 mm/hr [facility] Blood specimen (specimen) 09/02/2015 3:18 PM EDT 09/02/2015 3:22 PM EDT Narrative Resulting Agency Comment Spec In Lab Hema Thorne MD HEMATOLOGY ORDERABLE S Performing Organization Address [facility] Co de Phone Number [facility] [place] [address] * XR Bilateral Hands Minimum 3 Views [...] polyarthropathies documented in this encounter Care Teams Heavy Lift Rigger Relationship Specialty Start Date End Date Ros Bean MD PCP - General Pediatrics 07/17/15 07/27/17 documented as of this encounter
--- OUTSIDE RECORDS SUMMARY | 2024-05-05 10:44 | XMS_ITS | Encounter Summary ---
Author Organization [facility] Address [facility] [place] [address] Care Team Providers Care Speech Pathology Supervisor Name Role Phone Ros Bean MD Primary Care Provider [phone]- [phone] Reason for Visit * Reason Comments Right Knee Pain Right knee shira s 02/10/14 pain s/p fall 09/10/15 Encounter Details Date Type Department Care Team (Late st Contact Info) Description 10/21/2015 3:50 PM EDT [place] [address] Benito Zhang MD [facility] [place]OP[facility] [address] Acute pain of right knee Social History [...] knee documented in this encounter Care Teams Speech Pathology Supervisor Relationship Specialty Start Date End Date Ros Bean MD PCP - General Pediatrics 07/17/15 07/27/17 documented as of this encounter
--- OUTSIDE RECORDS SUMMARY | 2024-05-05 10:44 | XMS_ITS | Encounter Summary ---
Author Organization [facility] Address [facility] [place] [address] Care Team Providers Care Business Continuity Specialist Name Role Phone Mauri Villar MD Primary Care Provider [phone] Encounter Details Date Type Department Care Team (Latest Contact Info) Description 08/29/2017 4:00 PM EDT Office Visit Pediatric Rheumatology at [facility] [place] [phone] Hema Thorne MD [facility] [place] [address] AIDAN (juvenile idiopathic arthritis) Social History Tobacco [...] 08/29/2017 3:4 1 PM EDT Growth Chart: [facility] (Girls, 2- 20 Years) documented in this encounter Progress Notes * Hema Thorne MD - 08/29/2017 4:00 PM EDT Is a follow-up appointment on Pily Martinez [facility] 2000 The patient is a 17-year-old female [...] EDT) Glucose, Urine Dipstick Negative Negative mg/dL [facility] Protein, Urine Dipstick Negative Negative mg/dL [facility] Bilirubin, Urine Dipstick Negative Negative mg/dL [facility] Comment: Clinical correlation required for positive Urine Bilirubin results as false positive may occur with some drugs and drug related products. If a false positive is suspected a serum total bilirubin should be considered if clinically indicated. Urobilinogen, Urine Dipstick 2.0(A) Normal mg/dL [facility] pH, Urn (dipstick) 7.0 5.0 - 8.0 [facility] Blood, Urine Dipstick Moderate(A) Negative mg/dL [facility] Ketone, Urine Dipstick Negative Negative mg/dL [facility] Nitrite, Urine Dipstick Negative Negative [facility] Leukocytes, Urine Dipstick Large(A) Negative [facility] Appearance, Urine Dipstick Cloudy(A) Clear [facility] Specific [place] Urine Automated 1.010 1.002 - 1.030 [facility] Color, Urine Dipstick Yellow Yellow [facility] Urine specimen (specimen) 08/29/2017 4:36 PM EDT 08/29/2017 4:41 PM EDT Narrative Resulting Agency Comment Spec In Lab Hema Thorne MD URINE ORDERABLES Performing Organization Address City/State/[facility] Co de Phone Number [facility] [place] [address] * Extractable Nuclear Antigen (ROSA M) Ab (08/29/2017 4:36 PM EDT) ROSA M Ab Test ?Result ?Flag ??Unit ??RefValue Ab to Extractable Nuclear Ag Eval,S ??SS-A/Ro Ab, IgG, S ?<0.2 ?U ? <1.0 (Negative) ??SS-B/La Ab, IgG, S ?<0.2 ?U ? <1.0 (Negative) ??Sm Ab, IgG, S ? <0.2 ?U ? <1.0 (Negative) ??CRIMINAL JUSTICE DEPARTMENT CHAIR Ab, IgG, S ?0.2 ? U ? <1.0 (Negative) ??Scl 70 Ab, IgG, S ? <0.2 ?U ? <1.0 (Negative) ??[place] 1 Ab, IgG, S ? <0.2 ?U ? <1.0 (Negative) ?Test Performed by: ?[facility] ?[id number] [place] [address] LABORATORY Blood specimen (specimen) 08/29/2017 4:36 PM EDT 08/30/2017 8:37 AM EDT Narrative Resulting Agency Comment Spec In Lab Hema Thorne MD LAB SEND OUT ORDERAB LES Performing Organization Address [facility] de Phone Number [facility] [place] [address] * (ABNORMAL) C4 Complement (08/29/2017 4:36 PM EDT) Complement C4 46(H) 8 - 44 mg/dL [facility] Blood specimen (specimen) 08/29/2017 4:36 PM EDT 08/29/2017 4:40 PM EDT Narrative Resulting Agency Comment Spec In Lab Hema Thorne MD CHEMISTRY ORDERABLES Performing Organization Address [facility] de Phone Number [facility] [place] [address] * C3 Complement (08/29/2017 4:36 PM EDT) Complement C3 157 107 - 200 mg/dL [facility] Blood specimen (specimen) 08/29/2017 4:36 PM EDT 08/29/2017 4:40 PM EDT Narrative Resulting Agency Comment Spec In Lab Hema Thorne MD CHEMISTRY ORDERABLES [facility] [place] [address] documented in this encounter Visit Diagnoses Diagnosis AIDAN (juvenile idiopathic arthritis) Other specified inflammatory polyarthropathies documented in this encounter Care Teams Business Continuity Specialist Relationship Specialty Start Date End Date Mauri Villar MD [address] [place] [address] PCP - General Pediatrics 07/28/17 12/11/23 documented as of this encounter
--- OUTSIDE RECORDS SUMMARY | 2024-05-05 10:44 | XMS_ITS | Encounter Summary ---
Author Organization [facility] Address [facility] [place] [address] Care Team Providers Care Surgical Assist Name Role Phone Ros Bean MD Primary Care Provider [phone]- [phone] Encounter Details Date Type Department Care Team (Late st Contact Info) Description 01/28/2016 Orders [place] [address] Cole Moreno MD [facility] [place] [address] Pain in left wrist Social History Tobacco [...] forearm documented in this encounter Care Teams Surgical Assist Relationship Specialty Start Date End Date Ros Bean MD PCP - General Pediatrics 07/17/15 07/27/17 documented as of this encounter
--- OUTSIDE RECORDS SUMMARY | 2024-05-05 10:44 | XMS_ITS | Encounter Summary ---
Author Organization [facility] [place] [address] Care Team Providers Care Granite Sandblaster Apprentice Name Role Phone Ros Bean MD Primary Care Provider [phone]- [phone] Reason for Referral * Diagnostic Test (Routine) - Closed Specialty Diagnoses / Procedures Referred By Jack t Referred To Contact Radiology Diagnoses Pain in right wrist Procedures MRI Wrist Right WO Contrast Angeline Graham PA [facility] [place] [address] [place] [address] Referral ID Status Reason Start Date Expiration Date V isits Requested Visits Authorized [id number] Closed Specialty Service Requested 10/15/2015 01/13/2016 1 1 Reason for Visit * Reason Comments Right Wrist Pain R wrist pain * Consultation (Routine) - Closed Specialty Diagnoses / Procedures Referred By Jack t Referred To Contact Orthopaedics Diagnoses Pain in right wrist Hema Thorne MD [facility] [place] [address] Ted Altamirano MD [facility] [place] [address] Referral ID Status Reason Start Date Expiration Date V isits Requested Visits Authorized [id number] Closed Consult, Test & Treat 09/09/2015 09/08/2016 1 1 Encounter Details Date Type Department Care Team (Late st Contact Info) Description 10/05/2015 4:10 PM EDT Office [place] [address] Ted Altamirano MD [facility] [place]OP[place] [address] Pain in right wrist; Kienb??ck's disease, right [...] 10/05/2015 4:0 7 PM EDT Growth Chart: CDC (Girls, 2- 20 Years) documented in this encounter Progress Notes * Angeline Graham PA - 10/05/2015 4:10 PM EDT PATIENT NAME: Samreen Martinez AGE: 15 y.o. MR#: [id number] DATE OF VISIT: 10/05/2015 DATE OF INJURY/ONSET: Chronic STAFF: Dr. Altamirano CHIEF COMPLAINT: Rigth wrist pain HISTORY OF PRESENT ILLNESS: Samreen is a right hand dominant 15 y.o. female who comes into clinic today for evaluation of the right wrist. She was referred to [facility] Ortho by Hema Thorne. She statesthat she [...] NAVARRO at [facility] OR ??? Pro apply long leg cast 08/31/2010 CAST APPLICATION, LONG LEG (THIGH TO TOES) performed by BRENDAN NAVARRO at [facility] OR ??? Pro knee scope, shave articular cart 08/31/2010 ARTHROSCOPY KNEE CHONDROPLASTY performed by BRENDAN NAVARRO at [facility] OR ??? Pro knee scope, drill oste diss+int fix 08/31/2010 ARTHROSCOPY KNEE, DRILLING & FIXATION OF OCD performed by BRENDAN NAVARRO at [facility] OR ??? Pro fix unstable patella, exten realign 12/16/2010 PATELLAR REALIGNMENT performed by BRENDAN NAVARRO at [facility] OR ??? Pro knee scope, remv loose body 12/16/2010 ARTHROSCOPY KNEE REMOVE LOOSE BODY performed by BENITO GUNTER at [facility] OR ??? Pro knee scope, abrasn arthroplasty 12/16/2010 ARTHROSCOPY KNEE, MULTIPLE DRILLING, MICROFRACTURE performed by BENITO GUNTER at [facility] OR ??? Pro apply long leg cast 12/16/2010 CAST APPLICATION, LONG LEG (THIGH TO TOES) performed by BENITO GUNTER at [facility] OR ??? Pro knee scope, part synovect 04/05/2011 ARTHROSCOPY KNEE SYNOVECTOMY LIMITED performed by BENITO GUNTER at [facility] OR ??? Pro drain/inject large joint/bursa 04/05/2011 ARTHROCENTESIS, ASPIRATION OR INJECTION, MAJOR JOINT OR BURSA, KNEE performed by BENITO GUNTER at [facility] OR ??? Pro knee scope, remv loose body 02/13/2012 ARTHROSCOPY KNEE REMOVE LOOSE BODY performed by BENITO GUNTER at [facility] OR ??? Pro arthrotomy/explore/treat knee joint 02/13/2012 ARTHROTOMY, KNEE WITH EXPLORATION performed by BENITO GUNTER at [facility] OR ??? Pro revision of unstable patella 02/13/2012 REPAIR DISLOCATING PATELLA performed by BENITO GUNTER at [facility] OR ??? Pro knee scope, abrasn arthroplasty 02/13/2012 ARTHROSCOPY KNEE, MULTIPLE DRILLING, MICROFRACTURE performed by BENITO GUNTER at [facility] OR ??? Pro osteotomy tibia Right 02/10/2014 OSTEOTOMY, TIBIA performed by Benito Gunter MD at [facility] OR ??? Pro knee scope, remv loose body Right 02/10/2014 ARTHROSCOPY KNEE REMOVE LOOSE BODY performed by Benito Gunter MD at [facility] OR ??? Pro revision of unstable patella Right 02/10/2014 REPAIR DISLOCATING PATELLA performed by Benito Gunter MD at [facility] OR ??? Pro osteotomy tibia Left 09/08/2014 OSTEOTOMY, TIBIA performed by Benito Gunter MD at [facility] OR ??? Pro knee scope, diagnostic Left 09/08/2014 ARTHROSCOPY KNEE, DIAGNOSTIC performed by Benito Gunter MD at [facility] OR SOCIAL HX: Social History Occupational History [...] concerns. The above documentation was completed using MyTime voice recognition software. 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
--- OUTSIDE RECORDS SUMMARY | 2024-05-05 10:44 | XMS_ITS | Encounter Summary ---
Author Organization [facility] Address [facility] [place] [address] Care Team Providers Care Leather Tooler Name Role Phone Mauri Villar MD Primary Care Provider [phone] Encounter Details Date Type Department Care Team (Latest Contact Info) Description 08/01/2018 2:17 PM EDT - 08/01/2018 11:59 PM EDT Hospital Encounter XRay at [address] [place] [address] Benito Zhang MD [facility] [place] [address] Chronic pain of left knee Discharge Disposition: [...] Sig Dispensed Refills Start Date End Date etonogestrel (NEXPLANON) 68 mg Implant by Subdermal route Continuous (Device). 12/02/2019 sertraline (ZOLOFT) 100 mg TabletIndications:Effu candido of [...] mouth daily. 60 tablet 3 07/28/2017 02/09/2024 FLUoxetine (PROZAC) 10 mg Capsule Take 10 mg by mouth daily. 12/22/2023 traZODone (DESYREL) 50 mg Tablet Take 50 [...] leg documented in this encounter Care Teams Leather Tooler Relationship Specialty Start Date End Date Mauri Villar MD [address] [place] [address] [place] [address] PCP - General Pediatrics 07/28/17 12/11/23 documented as of this encounter
--- OUTSIDE RECORDS SUMMARY | 2024-05-05 10:44 | XMS_ITS | Encounter Summary ---
Author Organization [facility] Address [facility] [place] [address] Care Team Providers Care Fuel System Maintenance Supervisor Name Role Phone Ros Bean MD Primary Care Provider [phone]- [phone] Encounter Details Date Type Department Care Team (Latest Contact Info) Description 10/21/2015 2:50 PM EDT - 10/21/2015 11:59 PM EDT Hospital Encounter XRay at [address] [address] Benito Zhang MD [facility] [place] [address] Acute pain of right knee Discharge Disposition: [...] Sig Dispensed Refills Start Date End Date norelgestrom-ethinyl estradiol (XULANE) 150-35 mcg/24 hr Patch Weekly weekly 07/14/2015 07/01/2016 meloxicam (MOBIC) 15 mg TabletIndications:AIDAN (juvenile idiopathic arthritis) Take 1 tablet by mouth daily. 30 tablet 12 09/02/2015 02/09/2024 acetaminophen (TYLENOL) 325 mg Tablet Take 2 [...] Team Pts Under 25 AP Lat Schuss Landa Right (10/21/2015 3:09 PM EDT) Anatomical Region [...] knee documented in this encounter Care Teams Fuel System Maintenance Supervisor Relationship Specialty Start Date End Date Ros Bean MD PCP - General Pediatrics 07/17/15 07/27/17 documented as of this encounter
--- OUTSIDE RECORDS SUMMARY | 2024-05-05 10:44 | XMS_ITS | Encounter Summary ---
Author Organization [facility] Address [facility] [place] [address] Care Team Providers Care Brass Cutter Name Role Phone Ros Bean MD Primary Care Provider +1- [phone] Encounter Details Date Type Department Care Team (Latest Contact Info) Description 01/29/2016 12:42 PM EST - 01/29/2016 11:59 PM EST Hospital Encounter XRay at [address] [place] [address] Cole Moreno MD [facility] [place] [address] Pain in right wrist Discharge Disposition: Home [...] forearm documented in this encounter Care Teams Brass Cutter Relationship Specialty Start Date End Date Ros Bean MD PCP - General Pediatrics 07/17/15 07/27/17 documented as of this encounter
--- OUTSIDE RECORDS SUMMARY | 2024-05-05 10:44 | XMS_ITS | Encounter Summary ---
Author Organization Counts Include [facility] [place] [address] Care Team Providers Care Information Security Architect Name Role Phone Ros Bean MD Primary Care Provider +1- [phone] Reason for Visit * Reason Onset Date Comments Knee Pain 09/15/2015 Appointment 09/15/2015 Encounter Details Date Type Department Care Team (Late st Contact Info) Description 09/15/2015 [place] [address] Daya Fajardo, RN Knee Pain; [...] be seen in our clinic by Dr. Zhang/team clinic, Destiny dorado, or Eldon alcaraz as Dr. Zhang if off next week. [...] TIBIA performed by Benito Zhang MD at [facility] MAIN OR PRO KNEE SCOPE, DIAGNOSTIC 09/08/2014 Left ARTHROSCOPY KNEE, DIAGNOSTIC performed by Benito Zhang MD at [facility] MAIN OR Mom reports R.T. is having pain in her knee, mom specifically said R knee in message, and wonderingif she should follow up with Zhang since she is one year out from surgery, or if should be evaluated by her coke wheeler. Please advise Mom: may be reached at above number after 230 Routed to N,W ATC-PE documented in this encounter Plan of Treatment Not on file documented as of this encounter Visit Diagnoses Not on filedocumented in this encounter Care Teams Information Security Architect Relationship Specialty Start Date End Date Ros Bean MD PCP - General Pediatrics 07/17/15 07/27/17 documented as of this encounter
--- OUTSIDE RECORDS SUMMARY | 2024-05-05 10:44 | XMS_ITS | Encounter Summary ---
Author Organization [facility] Address [facility] [place] [address] Care Team Providers Care Furniture Sales Associate Name Role Phone Mauri Villar MD Primary Care Provider [phone] Reason for Visit * Reason Comments Follow-up * Consultation (Routine) - Closed Specialty Diagnoses / Procedures Referred By Jack t Referred To Contact Pediatric Rheumatology Diagnoses AIDAN needs f/u Mauri Villar MD [address] [place] [address] [place] [address] [facility] [address] [place] [id number] Referral ID Status Reason Start Date Expiration Date V isits Requested Visits Authorized [id number] Closed Consult, Test & Treat Connection Center 06/07/2017 06/07/2018 1 1 Encounter Details Date Type Department Care Team (Latest Contact Info) Description 07/28/2017 9:30 AM EDT Office Visit [place] [address] Hema Thorne MD [facility] [address] AIDAN (juvenile idiopathic arthritis) Social [...] 07/28/2017 9:1 8 AM EDT Growth Chart: [facility] (Girls, 2- 20 Years) documented in this encounter Progress Notes * Hema Thorne MD - 07/28/2017 9:30 AM EDT This is a follow-up appointment on [facility] Patient is a 17-year-old female with [...] AM EDT) DNA Ab (DS) Neg Neg [facility] Blood specimen (specimen) 07/28/2017 10:44 AM EDT 07/28/2017 1:36 PM EDT Narrative Resulting Agency Comment Spec In Lab Hema Thorne MD LAB SEND OUT ORDERAB LES Performing Organization Address City/[facility]/ZIP Co de Phone Number [facility] [place] [address] * (ABNORMAL) BERNY Titer (07/28/2017 10:44 AM EDT) [facility] BERNY Titer Pos at 1:320(A) [facility] Comment: pos 1:320 Titer seen with Homogeneous/Diffuse pattern. ??Is suggestive of autoantibodies to nDNA, histones, or DNA-associated proteins. Blood specimen (specimen) 07/28/2017 10:44 AM EDT 07/28/2017 1:36 PM EDT Narrative Resulting Agency Comment Spec In Lab Hema Thorne MD IMMUNOLOGY ORDERABLE S Performing Organization Address City/[facility]/ZIP Co de Phone Number [facility] [place] [address] * Differential, Automated (07/28/2017 10:44 AM EDT) Neutrophil % 41.4 % [facility] Neutrophil Absolute 3.41 1.50 - 8.00 x10(3)/mcL [facility] Lymph % 48.6 % [facility] Lymphocytes Abs 4.0 1.2 - 5.2 x10(3)/[facility] Monocyte % 7.4 % [facility] Monocyte Abs 0.6 0.2 - 1.0 x10(3)/[facility] Eos % 1.7 % [facility] Eosinophils Abs 0.1 0.0 - 0.4 x10(3)/[facility] Basophil % 0.5 % [facility] Baso Absolute 0.0 0.0 - 0.1 x10(3)/[facility] Immature Gran % 0.40 % [facility] Comment: Immature granulocytes(IG's)percentage and absolute count will include metamyelocytes, myelocytes, and promyelocytes. Blood smears from CBCs yielding IG's will be scanned manually for concordance. If this scan disagrees with the automated IG or if promyelocytes are noted, a manual differential will be performed. Immature Gran Absolute 0.03 0.00 - 0.04 x10(3)/[facility] Blood specimen (specimen) 07/28/2017 10:44 AM EDT 07/28/2017 10:50 AM EDT Narrative Resulting Agency Comment Spec In Lab Hema Thorne MD HEMATOLOGY ORDERABLE S [facility] [place] [address] * Hemogram (07/28/2017 10:44 AM EDT) White Blood Cell 8.3 4.5 - 13.0 x10(3)/[facility] Red Blood Cell 4.68 4.10 - 5.10 x10(6)/[facility] Hemoglobin 12.9 12.0 - 16.0 gm/dL [facility] Hematocrit 39.5 36.0 - 46.0 % [facility] Mean Cell Volume 84.4 76.0 - 98.0 fL [facility] Mean Cell Hemoglobin 27.6 25.0 - 35.0 pg [facility] Mean Cell Hemoglobin Concentration 32.7 32.0 - 36.5 gm/dL [facility] Platelet 264 145 - 370 x10(3)/[facility] RDW Standard Deviation 41.5 37.0 - 46.0 fL [facility] RDW coefficient of variation 13.4 0.0 - 14.5 % [facility] Mean Platelet Volume 10.9 7.6 - 12.9 fL [facility] NRBC% auto 0.0 % [facility] NRBC Absolute 0.000 0.000 - 0.000 x10(3)/[facility] Blood specimen (specimen) 07/28/2017 10:44 AM EDT 07/28/2017 10:50 AM EDT Narrative Resulting Agency Comment Spec In Lab Hema Thorne MD HEMATOLOGY ORDERABLE S [facility] [place] [address] * HLA-B27 (07/28/2017 10:44 AM EDT) HLA-B27 Negative [facility] HLA B27 Interpretation HLA B27 antigen was not detected. Method: Flow Cytometry Reference: 1.Yaa DA, Andres DIALLO, Pollo Granados, et al: Ankylosing spondylitis and HLA-27. Lancet 1973;1:904-907 2.Mignon J, Chago CERDA: HLA-B27 typing by use of flow cytofluorometr y. Clin Chem 1987;33:1619-1 623 [facility] White Blood Cell 8.3 4.5 - 13.0 x10(3)/m cL [facility] Blood specimen (specimen) 07/28/2017 10:44 AM EDT 07/28/2017 10:50 AM EDT Narrative Resulting Agency Comment Spec In Lab Hema Thorne MD HEMATOLOGY ORDERABLE S Performing Organization Address [facility] [place] [address] * Cyclic Citrullinated Peptide (07/28/2017 10:44 AM EDT) Cyclic Citrulline Peptide <0.5 <=4.9 unit/mL [facility] Comment: An updated CCP assay reagent was implemented 06/30/16. Please note the modified reference interval. Blood specimen (specimen) 07/28/2017 10:44 AM EDT 07/28/2017 10:50 AM EDT Narrative Resulting Agency Comment Spec In Lab Hema Thorne MD CHEMISTRY ORDERABLES Performing Organization Address [facility] [place] [address] * Rheumatoid factor, quant (07/28/2017 10:44 AM EDT) Rheumatoid Factor <10 <=14 IU/mL [facility] Blood specimen (specimen) 07/28/2017 10:44 AM EDT 07/28/2017 10:50 AM EDT Narrative Resulting Agency Comment Spec In Lab Hema Thorne MD CHEMISTRY ORDERABLES Performing Organization Address [facility] Co de Phone Number [facility] [place] [address] * (ABNORMAL) BERNY (07/28/2017 10:44 AM EDT) BERNY Pos, See Titer(A) Neg [facility] Blood specimen (specimen) 07/28/2017 10:44 AM EDT 07/28/2017 1:36 PM EDT Narrative Resulting Agency Comment Spec In Lab Hema Thorne MD LAB SEND OUT ORDERAB LES Performing Organization Address City/[facility] Co de Phone Number [facility] [place] [address] * CRP, acute inflammation (07/28/2017 10:44 AM EDT) C-Reactive Protein 0.9 <=4.9 mg/L [facility] Blood specimen (specimen) 07/28/2017 10:44 AM EDT 07/28/2017 10:50 AM EDT Narrative Resulting Agency Comment Spec In Lab Hema Thorne MD CHEMISTRY ORDERABLES Performing Organization Address [facility]/ZIP Co de Phone Number [facility] [place] [address] * Sedimentation rate (07/28/2017 10:44 AM EDT) Pathologist [facility] Sedimentation Rate Automated 14 0 - 20 mm/hr [facility] Blood specimen (specimen) 07/28/2017 10:44 AM EDT 07/28/2017 10:50 AM EDT Narrative Resulting Agency Comment Spec In Lab Hema Thorne MD HEMATOLOGY ORDERABLE S Performing Organization Address [facility]/ZIP Co de Phone Number [facility] [place] [address] * (ABNORMAL) Comprehensive metabolic panel (non-fasting) (07/28/2017 10:44 AM EDT) Glucose 92 65 - 199 mg/dL [facility] Comment:Diabetes: >=200 mg/d L plus symptoms Blood Urea Nitrogen 8(L) 10 - 20 mg/dL [facility] Creatinine 0.82(H) 0.20 - 0.70 mg/dL [facility] Sodium 142 135 - 145 mmol/L [facility] Potassium 4.2 3.5 - 5.0 mmol/L [facility] Comment: Please note: ??Patients with WBC >100,000 may have falsely elevated Potassium levels. ??For accurate Potassium quantification in these patients send serum separator tube (gold top) for subsequent determinations. ??Contact the Clinical Chemistry Laboratory if there are any questions. Chloride 104 98 - 107 mmol/L [facility] Carbon Dioxide 26 22 - 31 mmol/L [facility] Anion Gap 12 5 - 15 mmol/L [facility] Calcium 8.7 8.5 - 10.5 mg/dL [facility] Protein, Total 7.0 6.4 - 8.3 gm/dL [facility] Albumin 4.3 3.2 - 5.2 gm/dL [facility] Aspartate Aminotransferase 19 5 - 30 unit/L [facility] Alanine Aminotransferase 20 0 - 25 unit/L [facility] Alkaline Phosphatase 71 55 - 140 unit/L [facility] Bilirubin, Total <0.2 <=1.0 mg/dL [facility] Est Glomerular Filtration Rate See note >=60 [facility] Comment: The eGFR for patients less than 18 years of age should be calculated using the Chan formula. GFR = (0.413 x Height in cm)/serum creatinine. The reported eGFR should be multiplied by 1.2 for patients. The MDRD is not an appropriate measure of renal function for patients with body mass extremes or in patients with acute kidney failure. http://[employer]Sidecar/DHnkdep http://[employer]/DHMCnkf Blood specimen (specimen) 07/28/2017 10:44 AM EDT 07/28/2017 10:50 AM EDT Narrative Resulting Agency Comment Spec In Lab Hema Thorne MD CHEMISTRY ORDERABLES [facility] [place] [address] documented in this encounter Visit Diagnoses Diagnosis AIDAN (juvenile idiopathic arthritis) Other specified inflammatory polyarthropathies documented in this encounter Care Teams Furniture Sales Associate Relationship Specialty Start Date End Date Mauri Villar MD [address] [place] [address] PCP - General Pediatrics 07/28/17 12/11/23 documented as of this encounter
--- OUTSIDE RECORDS SUMMARY | 2024-05-05 10:44 | XMS_ITS | Encounter Summary ---
[place] [address] Care Team Providers Care M1 Armor Crewman Name Role Phone Ros Bean MD Primary Care Provider [phone]- [phone] Reason for Visit * Reason Onset Date Comments Other 07/01/2016 Medication Issue Encounter Details Date Type Department Care Team (Late st Contact Info) Description 07/01/2016 [place] [address] Zane Chaves RN Other (Medication Issue) Social [...] on filedocumented in this encounter Care Teams M1 Armor Crewman Relationship Specialty Start Date End Date Ros Bean MD PCP - General Pediatrics 07/17/15 07/27/17 documented as of this encounter
--- OUTSIDE RECORDS SUMMARY | 2024-05-05 10:44 | XMS_ITS | Encounter Summary ---
Author Organization [facility] Address [facility] [place] [address] Care Team Providers Care Wash Rack Operator Name Role Phone Mauri Villar MD Primary Care Provider [phone] Encounter Details Date Type Department Care Team (Late st Contact Info) Description 11/22/2019 Ancillary Procedure Radiology Library [place] [address] Mauri Villar MD [address] [place] [address] [place], [place] [id number] Social History Tobacco Use Types Packs/Day Years [...] Lower Extremity (11/22/2019 12:00 AM EDT) Narrative [facility] - 11/26/2019 11:45 AM EDT This exam is auto-finalizing. It's purpose is for storage only. Mauri Villar MD IMG FILM LIBRARY OR DERABLES [place], [place] documented in this encounter Visit Diagnoses Not on filedocumented in this encounter Care Teams Wash Rack Operator Relationship Specialty Start Date End Date Mauri Villar MD [address] [place] [address] PCP - General Pediatrics 07/28/17 12/11/23 documented as of this encounter
--- OUTSIDE RECORDS SUMMARY | 2024-05-05 10:44 | XMS_ITS | Encounter Summary ---
Author [place] [address] Care Team Providers Care Supervisory Training Specialist Name Role Phone Ros Bean MD Primary Care Provider +1- [phone] Encounter Details Date Type Department Care Team (Late st Contact Info) Description 10/05/2015 Orders [place] [address] Maryellen Watson Social History Tobacco Use Types [...] on filedocumented in this encounter Care Teams Supervisory Training Specialist Relationship Specialty Start Date End Date Ros Bean MD PCP - General Pediatrics 07/17/15 07/27/17 documented as of this encounter
--- OUTSIDE RECORDS SUMMARY | 2024-05-05 10:44 | XMS_ITS | Encounter Summary ---
Author Organization [facility] Address [facility] [place] [address] Care Team Providers Care Chief Business Development Officer Name Role Phone Michelet Cramer MD Primary Care Provider [phone] Encounter Details Date Type Department Care Team (Late st Contact Info) Description 09/16/2014 Orders [place] [address] Bneito Zhang MD [facility] [place] [address] S/P left knee arthroscopy Social History Tobacco [...] status documented in this encounter Care Teams Chief Business Development Officer Relationship Specialty Start Date End Date Michelet Cramer MD [address] [place] [address] PCP - General 04/27/10 07/16/15 documented as of this encounter
--- OUTSIDE RECORDS SUMMARY | 2024-05-05 10:44 | XMS_ITS | Encounter Summary ---
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 She has been followed by Dr. Altamirano in the past for this and he sends her to Dr. Moreno today for another opinion. Per her previous notes she was sent to orthopaedics by her field nurse case manager for severalyears of right wrist pain. She [...] right documented in this encounter Care Teams Clinical Material Handler Relationship Specialty Start Date End Date Ros Bean MD PCP - General Pediatrics 07/17/15 07/27/17 documented as of this encounter
--- OUTSIDE RECORDS SUMMARY | 2024-05-05 10:44 | XMS_ITS | Encounter Summary ---
Author Organization [facility] Address [facility] [place] [address] Care Team Providers Care Director Investor Relations Name Role Phone Mauri Villar MD Primary Care Provider [phone] Reason for Visit * Reason Onset Date Comments Other 09/05/2017 Lab Results Encounter Details Date Type Department Care Team (Late st Contact Info) Description 09/05/2017 Telephone [place] [address] Zane Chaves RN Other (Lab Results) Social [...] is needed, she would like sent to [facility]. Will order and send. Mom also reports that Samreen had a bad reaction to the Diclofenac so she has stopped taking it. She had N/V and HTN. She was evaluated in the ER. Symptoms have resolved since stopping Diclofenac. * Telephone Encounter - Zane Chaves RN - 09/05/2017 1:46 PM EDT Jackie Schumacher calls for lab results. BERNY positive with 1:320 titer, urine is also abnormal. Will ask Dr. Thorne for his recommendations when calling Mom back. documented in this encounter Plan of Treatment Not on file documented as of this encounter Visit Diagnoses Diagnosis AIDAN (juvenile idiopathic arthritis)- Primary Other specified inflammatory polyarthropathies documented in this encounter Care Teams Director Investor Relations Relationship Specialty Start Date End Date Mauri Villar MD [address] [place] [address] PCP - General Pediatrics 07/28/17 12/11/23 documented as of this encounter
--- OUTSIDE RECORDS SUMMARY | 2024-05-05 10:44 | XMS_ITS | Encounter Summary ---
Author Organization [facility] Address [facility] [place] [address] Care Team Providers Care Tombstone Polisher Name Role Phone Ros Bean MD Primary Care Provider [phone]- [phone] Encounter Details Date Type Department Care Team (Latest Contact Info) Description 07/01/2016 2:00 PM EDT - 07/01/2016 11:59 PM EDT Hospital Encounter XRay at [address] [place] [address] Cole Moreno MD [facility] [place] [address] Pain in right wrist Discharge Disposition: Home [...] Take 10 mg by mouth daily. 12/22/2023 cetirizine (ZYRTEC) 10 mg Tablet Take 10 mg by mouth daily. 08/01/2018 traZODone (DESYREL) 50 mg Tablet Take 50 mg by mouth nightly. 02/09/2024 norgestimate-ethinyl estradiol (SPRINTEC, 28,) 0.25-35 mg-mcg Tablet Take 1 tablet by mouth daily. 08/01/2018 meloxicam (MOBIC) 15 mg TabletIndications:AIDAN (juvenile idiopathic [...] forearm documented in this encounter Care Teams Tombstone Polisher Relationship Specialty Start Date End Date Ros Bean MD PCP - General Pediatrics 07/17/15 07/27/17 documented as of this encounter
--- OUTSIDE RECORDS SUMMARY | 2024-05-05 10:44 | XMS_ITS | Encounter Summary ---
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 The patient was placed supine on [...] pre- procedural time-out was performed as per [facility] [place]. The patient was placed supine on [...] EST documented in this encounter Care Teams Burnisher Relationship Specialty Start Date End Date Ros Bean MD PCP - General Pediatrics 07/17/15 07/27/17 documented as of this encounter
--- OUTSIDE RECORDS SUMMARY | 2024-05-05 10:44 | XMS_ITS | Encounter Summary ---
Author Organization [facility] Address [facility] [place] [address] Care Team Providers Care Auto Haulaway Driver Name Role Phone Ros Bean MD Primary Care Provider [phone] Reason for Visit * Reason Onset Date Comments Results 10/26/2015 Encounter Details Date Type Department Care Team (Late st Contact Info) Description 10/26/2015 Telephone [place] [phone] Benito Zhang MD [facility] [place] [address] Results Social History Tobacco Use Types Packs/Day [...] encounter Miscellaneous Notes * Telephone Encounter - Andrey Rodney T - 10/26/2015 12:54 PM EDT What study is patient calling about? MRI 8-3-16 Per [facility] the study was done: yes Per [facility] the results are final: yes Best number to reach the patient #[phone] mom cell (name winsome) I will forward [...] on filedocumented in this encounter Care Teams Auto Haulaway Driver Relationship Specialty Start Date End Date Ros Bean MD PCP - General Pediatrics 07/17/15 07/27/17 documented as of this encounter
--- OUTSIDE RECORDS SUMMARY | 2024-05-05 10:44 | XMS_ITS | Encounter Summary ---
Author Organization [facility] Address [facility] [place] [address] Care Team Providers Care Process Planner Name Role Phone Mauri Villar MD Primary Care Provider [phone] Reason for Referral * Consultation (Routine) - Specialty Diagnoses / Procedures Referred By Contlorena sherman Referred To Contact Diagnoses Effusion of knee joint, left Hema Thorne MD [facility] [place] [address] Referral ID Status Reason Start Date Expiration Date V isits Requested Visits Authorized [id number] Consult, Test & Treat 12/01/2017 2018 1 1 Reason for Visit * Reason Comments Follow-up Encounter Details Date Type Department Care Team (Latest Contact Info) Description 12/01/2017 1:00 PM EDT Office Visit Pediatric Rheumatology at [place] [phone] Hema Thorne MD [facility] [place] [address] Effusion of knee joint, left Social History [...] 12/01/2017 1:1 3 PM EDT Growth Chart: [facility]– [...] joint documented in this encounter Care Teams Process Planner Relationship Specialty Start Date End Date Mauri Villar MD [address] [place] [address] PCP - General Pediatrics 07/28/17 12/11/23 documented as of this encounter
--- OUTSIDE RECORDS SUMMARY | 2024-05-05 10:44 | XMS_ITS | Encounter Summary ---
Author Organization [facility] Address [facility] [place] [address] Care Team Providers Care Roof Fixer Name Role Phone Michelet Cramer MD Primary Care Provider [phone] Reason for Visit * Reason Onset Date Comments Questions 11/04/2014 Encounter Details Date Type Department Care Team (Late st Contact Info) Description 11/04/2014 Telephone [place] [phone] Benito Zhang MD [facility] DR [place] [address] Questions Social History Tobacco Use Types Packs/Day [...] message that it is just fine for Samreen to go to the dentist. * Telephone Encounter - Sun Michele - 11/04/2014 10:35 AM EDT Who is calling: Patient Mom Have you had Surgery? Yes If so when? 08/2014 Who was the Surgeon? Dr. Zhang What is the question: Is it ok for patient to go to the dentist Best number to reach the caller: [phone] documented in this encounter Plan of Treatment Not on file documented as of this encounter Visit Diagnoses Not on filedocumented in this encounter Care Teams Roof Fixer Relationship Specialty Start Date End Date Michelet Cramer MD [address] [place] [address] PCP - General 04/27/10 07/16/15 documented as of this encounter
--- OUTSIDE RECORDS SUMMARY | 2024-05-05 10:44 | XMS_ITS | Encounter Summary ---
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
--- OUTSIDE RECORDS SUMMARY | 2024-05-05 10:44 | XMS_ITS | Encounter Summary ---
Author Organization [facility] Address [facility] [place] [address] Care Team Providers Care Manager Six Sigma Name Role Phone Michelet Cramer MD Primary Care Provider [phone] Reason for Visit * Reason Comments Follow Up Surgery Lt Knee Fulkersons Encounter Details Date Type Department Care Team (Late st Contact Info) Description 09/16/2014 3:30 PM EDT Office [place] [phone] Benito Zhang MD [facility] [place] [address] Left knee pain (Primary Dx) Discharge Disposition: [...] 09/16/2014 4:2 7 PM EDT Growth Chart: [facility] (Girls, 2- 20 Years) documented in this [...] leg documented in this encounter Care Teams Manager Six Sigma Relationship Specialty Start Date End Date Michelet Cramer MD [address] [place] [address] PCP - General 04/27/10 07/16/15 documented as of this encounter
--- OUTSIDE RECORDS SUMMARY | 2024-05-05 10:44 | XMS_ITS | Encounter Summary ---
Author Organization [facility] Address [facility] [place] [address] Care Team Providers Care Coding Auditor Name Role Phone Michelet Cramer MD Primary Care Provider [phone] Encounter Details Date Type Department Care Team (Latest Contact Info) Description 09/16/2014 3:01 PM EDT - 09/16/2014 11:59 PM EDT Hospital Encounter XRay at [address] [place] [address] S/P left knee arthroscopy Social History Tobacco [...] status documented in this encounter Care Teams Coding Auditor Relationship Specialty Start Date End Date Michelet Cramer MD [address] [place] [address] PCP - General 04/27/10 07/16/15 documented as of this encounter
--- OUTSIDE RECORDS SUMMARY | 2024-05-05 10:44 | XMS_ITS | Encounter Summary ---
Author Organization [facility] Address [facility] [place] [address] Care Team Providers Care Antique Repairer Name Role Phone Ros Bean MD Primary Care Provider [phone]- [phone] Encounter Details Date Type Department Care Team (Latest Contact Info) Description 09/02/2015 2:52 PM EDT - 09/02/2015 11:59 PM EDT Hospital Encounter XRay at [address] [place] [address] Hema Thorne MD [facility] [place] [address] AIDAN (juvenile idiopathic arthritis) Discharge Disposition: Home [...] 150-35 mcg/24 hr Patch Weekly weekly 07/14/201507/01 meloxicam (MOBIC) 15 mg TabletIndications:AIDAN (juvenile idiopathic [...] polyarthropathies documented in this encounter Care Teams Antique Repairer Relationship Specialty Start Date End Date Ros Bean MD PCP - General Pediatrics 07/17/15 07/27/17 documented as of this encounter
--- OUTSIDE RECORDS SUMMARY | 2024-05-05 10:44 | XMS_ITS | Encounter Summary ---
[place] [address] Care Team Providers Care Correctional Supervising Cook Name Role Phone Mauri Villar MD Primary Care Provider [phone] Reason for Referral * Diagnostic Test (Routine) - Closed Specialty Diagnoses / Procedures Referred By Contac t Referred To Contact Radiology Diagnoses Internal derangement of left knee Procedures MRI Knee wo Contrast Left (Generic) Benito Zhang MD [facility] [place] [address] [facility] [address] Referral ID Status Reason Start Date Expiration Date V isits Requested Visits Authorized [id number] Closed Specialty Service Requested 08/01/2018 08/01/2019 1 1 Reason for Visit * Reason Comments Follow-up left knee pain, recu rrent patellar subluxation * Consultation (Routine) - Closed Specialty Diagnoses / Procedures Referred By Contac t Referred To Contact Orthopaedics Diagnoses PAIN LEFT KNEE, RECURRENT PATELLAR SUBLUXATION Mauri Villar MD [address] [place] [address] [place] [address] [facility] Orthopaedics [address] [place] [address] Referral ID Status Reason Start Date Expiration Date V isits Requested Visits Authorized [id number] Closed Consult, Test & Treat Connection Center 07/25/2018 07/25/2019 1 1 Encounter Details Date Type Department Care Team (Late st Contact Info) Description 08/01/2018 3:20 PM EDT Office Visit [place] [address] Clinic, Dr Zhang Team None Internal derangement [...] To Find [Unclassified Drug] Anaphylaxis jalapeno ??? [place] Rash Rash/ lips swell ??? Diclofenac Nausea [...] residents interpretation and agree with the findings, Omsan Mcallister at 08/22/2018 9:45 AM Thank you for letting us participate in the care of this patient. For questions regarding this report, please contact the number below. ? Electronically signed by: Osman Mcallister [facility] ([phone]), at 08/22/2018 9:45 AM Narrative 08/22/2018 9:45 [...] number below. Electronically signed by: Osman Mcallister [facility]([phone]), at 08/22/2018 9:45 AM Benito Zhang MD IMG MRI ORDERABLES documented in this encounter Visit Diagnoses Diagnosis Internal derangement of left knee Unspecified internal derangement of knee Internal derangement of left knee Unspecified internal derangement of knee documented in this encounter Care Teams Correctional Supervising Cook Relationship Specialty Start Date End Date Mauri Villar MD [address] [facility] [place] [address] PCP - General Pediatrics 07/28/17 12/11/23 documented as of this encounter
--- OUTSIDE RECORDS SUMMARY | 2024-05-05 10:44 | XMS_ITS | Encounter Summary ---
Author Organization [facility] [place] [address] Care Team Providers Care Screening Unit Registered Nurse Name Role Phone Ros Bean MD Primary Care Provider [phone] Encounter Details Date Type Department Care Team (Late st Contact Info) Description 09/09/2015 Telephone Rheumatology at [facility] [place] [address] Karoline Wyatt, RN Social History Tobacco Use Types Packs/Day [...] on filedocumented in this encounter Care Teams Screening Unit Registered Nurse Relationship Specialty Start Date End Date Ros Bean MD PCP - General Pediatrics 07/17/15 07/27/17 documented as of this encounter
--- OUTSIDE RECORDS SUMMARY | 2024-05-05 10:44 | XMS_ITS | Encounter Summary ---
Author Organization [facility] [place] [address] Care Team Providers Care Line Repairer Tower Name Role Phone Mauri Villar MD Primary Care Provider [phone] Reason for Visit * Reason Comments Follow-up left knee pain- disc uss MRI Encounter Details Date Type Department Care Team (Late st Contact Info) Description 08/22/2018 8:50 AM EDT Office [place] [phone] Clinic, Dr Zhang Team None Pain of [...] knee Benito osteotomy and lateral release 09/08/14 (Vicente) M22.02 ??? AIDAN (juvenile idiopathic arthritis) M08.90 ??? 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 Latex Hives ??? Unable To Find [Unclassified Drug] Anaphylaxis jalapeno ??? [place] Rash Rash/ lips swell ??? Diclofenac Nausea [...] some replacement cartilage. If she deteriorates: Cartilage tenriism: She may be a candidate for a [...] extremity documented in this encounter Care Teams Line Repairer Tower Relationship Specialty Start Date End Date Mauri Villar MD [address] [place] [address] PCP - General Pediatrics 07/28/17 12/11/23 documented as of this encounter
--- OUTSIDE RECORDS SUMMARY | 2024-05-05 10:44 | XMS_ITS | Encounter Summary ---
Author Organization [facility] [place] [address] Care Team Providers Care Drill Operator Automatic Name Role Phone Mauri Villar MD Primary Care Provider [phone] Reason for Referral * Diagnostic Test (Routine) - Closed Specialty Diagnoses / Procedures Referred By Contac t Referred To Contact Radiology Diagnoses Internal derangement of left knee Procedures MRI Knee wo Contrast Left (Generic) Benito Zhang MD [facility] [place] [address] [place] [address] Referral ID Status Reason Start Date Expiration Date V isits Requested Visits Authorized [id number] Closed Specialty Service Requested 08/01/2018 08/01/2019 1 1 Reason for Visit * Diagnostic Test (Routine) - Closed Specialty Diagnoses / Procedures Referred By Contac t Referred To Contact Radiology Diagnoses Internal derangement of left knee Procedures MRI Knee wo Contrast Left (Generic) Benito Zhang MD [facility] [place] [address] [place] [address] Referral ID Status Reason Start Date Expiration Date V isits Requested Visits Authorized [id number] Closed Specialty Service Requested 08/01/2018 08/01/2019 1 1 Encounter Details Date Type Department Care Team (Latest Contact Info) Description 08/22/2018 7:04 AM EDT - 08/22/2018 11:59 PM EDT Hospital Encounter MRI at [facility] [place] [address] Benito Zhang MD [facility] DR [place] [address] Internal derangement of left knee Discharge Disposition: [...] below. ? Electronically signed by: Osman Mcallister [facility] ([phone]), at 08/22/2018 9:45 AM Narrative 08/22/2018 9:45 [...] number below. Electronically signed by: Osman Mcallister [facility]([phone]), at 08/22/2018 9:45 AM Benito Zhang MD IMG MRI ORDERABLES documented in this encounter Visit Diagnoses Diagnosis Internal derangement of left knee Unspecified internal derangement of knee documented in this encounter Care Teams Drill Operator Automatic Relationship Specialty Start Date End Date Mauri Villar MD [address] [place] [address] PCP - General Pediatrics 07/28/17 12/11/23 documented as of this encounter
--- OUTSIDE RECORDS SUMMARY | 2024-05-05 10:44 | XMS_ITS | Encounter Summary ---
Author Organization [facility] Address [facility] [place] [address] Care Team Providers Care Junior Account Executive Name Role Phone Ros Bean MD Primary Care Provider [phone] Reason for Referral * Consultation (Routine) - Closed Specialty Diagnoses / Procedures Referred By Jack sherman Referred To Contact Orthopaedics Diagnoses Pain in right wrist Hema Thorne MD [facility] [place] [address] Ted Altamirano MD [facility] [place] [address] Referral ID Status Reason Start Date Expiration Date V isits Requested Visits Authorized [id number] Closed Consult, Test & Treat 09/09/2015 09/08/2016 1 1 Encounter Details Date Type Department Care Team (Late st Contact Info) Description 09/09/2015 Orders Only Rheumatology at [place] [phone] Hema Thorne MD [facility] [place] [address] Pain in right wrist Social History Tobacco [...] forearm documented in this encounter Care Teams Junior Account Executive Relationship Specialty Start Date End Date Ros Bean MD PCP - General Pediatrics 07/17/15 07/27/17 documented as of this encounter
--- OUTSIDE RECORDS SUMMARY | 2024-05-05 10:44 | XMS_ITS | Encounter Summary ---
Author Organization [facility] Address [facility] [place] [address] Care Team Providers Care Painting Technician Name Role Phone Ros Bean MD Primary Care Provider [phone] Reason for Referral * Diagnostic Test (Routine) - Closed Specialty Diagnoses / Procedures Referred By Leeac t Referred To Contact Radiology Diagnoses Pain in right wrist Procedures MRI Wrist Right WO Contrast Angeline Graham PA [facility] [place] [address] [place] [address] Referral ID Status Reason Start Date Expiration Date V isits Requested Visits Authorized [id number] Closed Specialty Service Requested 10/15/2015 01/13/2016 1 1 Reason for Visit * Diagnostic Test (Routine) - Closed Specialty Diagnoses / Procedures Referred By Jack sherman Referred To Contact Radiology Diagnoses Pain in right wrist Procedures MRI Wrist Right WO Contrast Angeline Graham PA [facility] [place] [address] [place] [address] Referral ID Status Reason Start Date Expiration Date V isits Requested Visits Authorized [id number] Closed Specialty Service Requested 10/15/2015 01/13/2016 1 1 Encounter Details Date Type Department Care Team (Latest Contact Info) Description 10/21/2015 10:58 AM EDT - 10/21/2015 2:49 PM EDT Hospital Encounter MRI at [facility] [place] [address] Ted Altamirano MD [facility] [place] [address] Pain in right wrist Discharge Disposition: Home [...] 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
--- OUTSIDE RECORDS SUMMARY | 2024-05-05 10:44 | XMS_ITS | Encounter Summary ---
Author Organization [facility] Address [facility] [place] [address] Care Team Providers Care Mixing Engineer Name Role Phone Michelet Cramer MD Primary Care Provider [phone] Encounter Details Date Type Department Care Team (Late st Contact Info) Description 10/03/2014 Telephone Orthopaedics at [facility] [place] [phone] Tabby Pacheco RN Social History Tobacco Use [...] lateral release 09/08/14 (Zhang) Page from in [place], [place] concerning Samreen and a infected post [...] on filedocumented in this encounter Care Teams Mixing Engineer Relationship Specialty Start Date End Date Michelet Cramer MD [address] [place] [address] PCP - General 04/27/10 07/16/15 documented as of this encounter
--- OUTSIDE RECORDS SUMMARY | 2024-05-05 10:44 | XMS_ITS | Encounter Summary ---
Author Organization [facility] Address [facility] [place] [address] Care Team Providers Care Yarrow Gatherer Name Role Phone Ros Bean MD Primary Care Provider [phone] Encounter Details Date Type Department Care Team (Late st Contact Info) Description 02/14/2017 Ancillary Procedure Radiology Library at [facility] [place] [address] Benito Zhang MD [facility] [place] [address] Social History Tobacco Use Types Packs/Day Years [...] Zhang MD IMG FILM LIBRARY ORD ERABLES [facility] [place], [place] documented in this encounter Visit Diagnoses Not on filedocumented in this encounter Care Teams Yarrow Gatherer Relationship Specialty Start Date End Date Ros Bean MD PCP - General Pediatrics 07/17/15 07/27/17 documented as of this encounter
--- OUTSIDE RECORDS SUMMARY | 2024-05-05 10:44 | XMS_ITS | Encounter Summary ---
Author Organization [facility] Address [facility] [place] [address] Care Team Providers Care Table Games Dealer Name Role Phone Michelet Cramer MD Primary Care Provider [phone] Encounter Details Date Type Department Care Team (Late st Contact Info) Description 10/30/2014 1:47 PM EDT - 10/30/2014 11:59 PM EDT Hospital Encounter XRay at [address] [place] [address] Left knee pain Social History Tobacco Use [...] leg documented in this encounter Care Teams Table Games Dealer Relationship Specialty Start Date End Date Michelet Cramer MD [address] [place] [place] [address] PCP - General 04/27/10 07/16/15 documented as of this encounter
--- OUTSIDE RECORDS SUMMARY | 2024-05-05 10:44 | XMS_ITS | Encounter Summary ---
Author Organization [facility] Address [facility] [place] [address] Care Team Providers Care Bioinformatics Analyst Name Role Phone Michelet Cramer MD Primary Care Provider [phone] Reason for Referral * Physical Therapy (Routine) - Closed Specialty Diagnoses / Procedures Referred By Contac t Referred To Contact Physical Therapy Diagnoses Patellar dislocation, left, sequela Christian Sosa PA [facility] [place] [address] Referral ID Status Reason Start Date Expiration Date V isits Requested Visits Authorized [id number] Closed Evaluate and Treat 10/30/2014 04/28/2015 12 12 Reason for Visit * Reason Comments Left Knee Pain 09/08/14 Left Knee fu lkersons Encounter Details Date Type Department Care Team (Late st Contact Info) Description 10/30/2014 1:50 PM EDT Office Visit Orthopaedics at [place] [phone] Benito Zhang MD [facility] ORTHOPAEDIC [place] [address] Patellar dislocation, left, sequela (Primary Dx) Discharge [...] 99.64% 10/30 2:17 PM EDT Growth Chart: [facility] [place] 2] (Girls, 2- 20 Years) documented in this [...] Primary documented in this encounter Care Teams Bioinformatics Analyst Relationship Specialty Start Date End Date Michelet Cramer MD [address] [place] [address] PCP - General 04/27/10 07/16/15 documented as of this encounter
--- OUTSIDE RECORDS SUMMARY | 2024-05-05 10:44 | XMS_ITS | Encounter Summary ---
Author Organization [facility] Address [facility] [place] [address] Care Team Providers Care Printer Small Print Shop Name Role Phone Ros Bean MD Primary Care Provider [phone] Reason for Visit * Reason Onset Date Comments Appointment 03/23/2017 Encounter Details Date Type Department Care Team (Late st Contact Info) Description 03/23/2017 Telephone [place] [phone] Cole Moreno MD [facility] [place] [address] Appointment Social History Tobacco Use Types Packs/Day [...] on filedocumented in this encounter Care Teams Printer Small Print Shop Relationship Specialty Start Date End Date Ros Bean MD PCP - General Pediatrics 07/17/15 07/27/17 documented as of this encounter
--- OUTSIDE RECORDS SUMMARY | 2024-05-05 10:44 | XMS_ITS | Encounter Summary ---
[facility] [place] [address] Care Team Providers Care Decorator Hand Name Role Phone Ros Bean MD Primary Care Provider [phone] Reason for Visit * Reason Onset Date Comments Post Txp Follow Up Call 03/15/2016 Winsome hansel led reporting little improvement from injection. Encounter Details Date Type Department Care Team (Late st Contact Info) Description 03/15/2016 Telephone [place] [address] Daya Fajardo, RN Post Txp [...] Maryellen Donato - 03/17/2016 3:43 PM EST [place] [facility], they would like to move forward with scheduling. Contacted patients mother and relayed information. Also provided phone number for the schedulers For scheduling # [phone] #1 * Telephone Encounter - Maryellen Donato - 03/15/2016 3:[address] Moreno last note He discusses that if this does not improve her pain that the second optionis to do a a radial shortening osteotomy [facility]ing with [facility] on how to proceed with Radial Shortening Osteotomy. * Telephone Encounter - Daya Fajardo RN - 03/15/2016 1:57 PM EST Name:Samreen Martinez Contacted via: [facility] in [facility] Learning Needs Assessment done within 12 months [...] on filedocumented in this encounter Care Teams Decorator Hand Relationship Specialty Start Date End Date Ros Bean MD PCP - General Pediatrics 07/17/15 07/27/17 documented as of this encounter
--- OUTSIDE RECORDS SUMMARY | 2024-05-05 10:44 | XMS_ITS | Encounter Summary ---
Author Organization [facility] Address [facility] [place] [address] Care Team Providers Care Designer Name Role Phone Michelet Cramer MD Primary Care Provider [phone] Reason for Visit * Reason Onset Date Comments Post Procedure Call 10/03/2014 Encounter Details Date Type Department Care Team (Late st Contact Info) Description 10/03/2014 [place] [address] Benito Zhang MD [facility] [place] [address] Post Procedure Call Social History Tobacco Use [...] her a picture of the incision via [employer] of the incision. Mom does not know how to e mail a picture to Dr Zhang or myself. There is a reddened area the size is smaller than a dime. There is some slight drainage. I asked if Samreen is icing. She said No. I asked that she have Samreen start icing [place]. Mom and step Mom can not get Samreen here [place] [facility]. They live in [place], [place] They will take Samreen to her [...] be infected Best number to reach you #[phone] The nurse continuously monitors all messages and will return your call before the end of the day. The nurse may need to consult the surgeon about your question which may delay the return call by 24hrs. documented in this encounter Plan of Treatment Not on file documented as of this encounter Visit Diagnoses Not on filedocumented in this encounter Care Teams Designer Relationship Specialty Start Date End Date Michelet Cramer MD [address] [place] [address] [place] [address] PCP - General 04/27/10 07/16/15 documented as of this encounter
--- OUTSIDE RECORDS SUMMARY | 2024-05-05 10:44 | XMS_ITS | Encounter Summary ---
Author Organization [facility] Address [facility] [place] [address] Care Team Providers Care Rn Medical Surgical Name Role Phone Ros Bean MD Primary Care Provider [phone] Encounter Details Date Type Department Care Team (Late st Contact Info) Description 02/01/2016 [place] [address] Angeline Graham PA [facility] [place] [address] AIDAN (juvenile idiopathic arthritis); Kienb??ck's disease, right [...] pre- procedural time-out was performed as per [facility] protocol. The patient was placed supine on [...] pre- procedural time-out was performed as per [facility] protocol. The patient was placed supine on [...] right documented in this encounter Care Teams Rn Medical Surgical Relationship Specialty Start Date End Date Ros Bean MD PCP - General Pediatrics 07/17/15 07/27/17 documented as of this encounter
--- OUTSIDE RECORDS SUMMARY | 2024-05-05 10:44 | XMS_ITS | Encounter Summary ---
Author Organization [facility] Address [facility] [place] [address] Care Team Providers Care Archery Equipment Hay Sorter Name Role Phone Ros Bean MD Primary Care Provider [phone] Reason for Visit * Reason Comments Right Wrist Pain * Consultation (Routine) - Closed Specialty Diagnoses / Procedures Referred By Jack sherman Referred To Contact Orthopaedics Diagnoses osteochondrosis of carpal lenate- rt hand Ros Bean MD [address] [place] [phone] [facility] [address] [place] [phone] Referral ID Status Reason Start Date Expiration Date V isits Requested Visits Authorized [id number] Closed Connection Center 04/25/2016 04/25/2017 1 1 Encounter Details Date Type Department Care Team (Late st Contact Info) Description 07/01/2016 3:00 PM EDT Office [place] [address] Cole Moreno MD [facility] [place] [address] Kienb??ck's disease, right; AIDAN (juvenile idiopathic arthritis) [...] 07/01/2016 3:0 6 PM EDT Growth Chart: [facility] (Girls, 2- 20 Years) documented in this encounter Progress Notes * Droita Perez, BHARGAVI - 07/01/2016 3:00 PM EDT HPI: Samreen is a 16 year old female who presents to clinic today in follow-up of her right wrist pain. She has been followed by Dr. Altamirano in the past. Per her previous notes she was sent to orthopaedicsby her shochet for several years of right wrist pain. [...] We will have them work with her shochet to discuss her wish to change her [...] polyarthropathies documented in this encounter Care Teams Archery Equipment Hay Sorter Relationship Specialty Start Date End Date Ros Bean MD PCP - General Pediatrics 07/17/15 07/27/17 documented as of this encounter
--- OUTSIDE RECORDS SUMMARY | 2024-05-05 10:44 | XMS_ITS | Encounter Summary ---
Author Organization [facility] Address [facility] [place] [address] Care Team Providers Care Fire Alarm Dispatcher Name Role Phone Ros Bean MD Primary Care Provider [phone]- [phone] Encounter Details Date Type Department Care Team (Late st Contact Info) Description 06/24/2016 Orders [place] [address] Cole Moreno MD [facility] [place] [address] Pain in right wrist Social History Tobacco [...] forearm documented in this encounter Care Teams Fire Alarm Dispatcher Relationship Specialty Start Date End Date Ros Bean MD PCP - General Pediatrics 07/17/15 07/27/17 documented as of this encounter
--- OUTSIDE RECORDS SUMMARY | 2024-05-05 10:44 | XMS_ITS | Encounter Summary ---
Author Organization [facility] Address [facility] [place] [address] Care Team Providers Care Airline Reservation Agent Name Role Phone Ros Bean MD Primary Care Provider [phone] Encounter Details Date Type Department Care Team (Late st Contact Info) Description 01/29/2016 Orders [place] [address] Cole Moreno MD [facility] [address] [place] [address] Pain in right wrist Social History Tobacco [...] forearm documented in this encounter Care Teams Airline Reservation Agent Relationship Specialty Start Date End Date Ros Bean MD PCP - General Pediatrics 07/17/15 07/27/17 documented as of this encounter
--- OUTSIDE RECORDS SUMMARY | 2024-05-05 10:44 | XMS_ITS | Encounter Summary ---
Author Organization [facility] Address [facility] [place] [address] Care Team Providers Care Tree Cutter Name Role Phone Mauri Villar MD Primary Care Provider [phone] Encounter Details Date Type Department Care Team (Late st Contact Info) Description 11/22/2019 12:05 AM EDT Ancillary Procedure Radiology Library at [facility] [place] [id number] Mauri Villar MD [address] [place] [address] [place], [place] [id number] Social History Tobacco Use Types Packs/Day Years [...] CT Spine (11/22/2019 12:05 AM EDT) Narrative [facility] - 11/26/2019 11:45 AM EDT This exam is auto-finalizing. It's purpose is for storage only. Mauri Villar MD IMG FILM LIBRARY OR DERABLES [facility] [place] documented in this encounter Visit Diagnoses Not on filedocumented in this encounter Care Teams Tree Cutter Relationship Specialty Start Date End Date Mauri Villar MD [address] [facility] [address] PCP - General Pediatrics 07/28/17 12/11/23 documented as of this encounter
--- OUTSIDE RECORDS SUMMARY | 2024-05-05 10:45 | XMS_ITS | Encounter Summary ---
Author Organization [facility] Address [facility] [place] [address] Care Team Providers Care Nuclear Plant Instrument Technician Name Role Phone Michelet Cramer MD Primary Care Provider [phone] Encounter Details Date Type Department Care Team (Latest Contact Info) Description 11/28/2013 5:51 PM EDT - 11/28/2013 11:59 PM EDT Hospital [place] [address] CLINIC, DR CEFERINO Zhang, Benito Kenny MD [facility] [place] [address] Knee pain, right Discharge Disposition: Home Social [...] consistent with loose bodies. Benito Zhang MD [facility] [place] ORDER[facility]LES documented in this encounter Visit Diagnoses Diagnosis Knee pain, right Pain in joint, lower leg documented in this encounter Care Teams Nuclear Plant Instrument Technician Relationship Specialty Start Date End Date Michelet Cramer MD [address] [place] [address] [place] [address] PCP - General 04/27/10 07/16/15 documented as of this encounter
--- OUTSIDE RECORDS SUMMARY | 2024-05-05 10:45 | XMS_ITS | Encounter Summary ---
Author Organization [facility] Address [facility] [place] [address] Care Team Providers Care Outside Sales Executive Name Role Phone Michelet Cramer MD Primary Care Provider [phone] Reason for Referral * Physical Therapy (Routine) - Closed Specialty Diagnoses / Procedures Referred By Contlorena t Referred To Contact Diagnoses Recurrent dislocation of right patella Frankie Arvizu PA [address] [place] [address] [address] Referral ID Status Reason Start Date Expiration Date V isits Requested Visits Authorized [id number] Closed Evaluate and Treat 04/10/2014 10/07/2014 10 10 Reason for Visit * Reason Comments Follow Up Surgery right knee shira 02/10/14 Encounter Details Date Type Department Care Team (Late st Contact Info) Description 04/10/2014 2:10 PM EST Office [place] [address] Frankie Arvizu PA [address] [place] [address] Recurrent dislocation of right patella - s/p [...] 04/10/2014 1:2 7 PM EST Growth Chart: [facility] (Girls, 2- 20 Years) documented in this encounter Progress Notes * Frankie Arvizu PA - 04/10/2014 1:27 PM EST PATIENT NAME: Samreen Martinez AGE: 13 y.o. MR#: [id number] DATE OF VISIT: 04/10/2014 Case Date: 02/10/2014 [...] very well. She is now in her Jasper brace locked in full extension and fully [...] to help her transition out of her Jasper brace into the the PTO brace. We [...] joint documented in this encounter Care Teams Outside Sales Executive Relationship Specialty Start Date End Date Michelet Cramer MD [address] [place] [address] [place] [address] PCP - General 04/27/10 07/16/15 documented as of this encounter
--- OUTSIDE RECORDS SUMMARY | 2024-05-05 10:45 | XMS_ITS | Encounter Summary ---
Author Organization [facility] Address [facility] [place] [address] Care Team Providers Care Pediatric Audiologist Name Role Phone Michelet Cramer MD Primary Care Provider [phone] Reason for Visit * Reason Comments Other Encounter Details Date Type Department Care Team (Late st Contact Info) Description 02/21/[address] [facility] [place] [address] Chichi Meredith RN Social History Tobacco Use [...] 02/20/2014 10:49 AM EST ----- Regarding: FW: 8 reschedule appointment Zhang Please see the rescheduling [...] Simi Dacosta Subject: RE: 8 reschedule appointment Vicente Was not able to do the th, able to do the th at 3:10pm in an 7 this okay? ----- Message ----- From: Simi Dacosta Sent: 02/20/2014 9:15 AM To: [facility] Subject: RE: 8 reschedule appointment Zhang Book in frozen 11:10 slot on 02/27 ----- Message ----- From: Daisy Morales Sent: 02/20/2014 8:58 AM To: [facility] Subject: 8 reschedule appointment Zhang When is appointment needed? As soon as possible 8 X-rays? YES Casting appointments? N/A What doctor?VICENTE When was Surgery date/date of appointment? 02/10/2014 Best number to reach patient? [phone] documented in this encounter Plan of Treatment Not on file documented as of this encounter Visit Diagnoses Not on filedocumented in this encounter Care Teams Pediatric Audiologist Relationship Specialty Start Date End Date Michelet Cramer MD [address] [place] [address] PCP - General 04/27/10 07/16/15 documented as of this encounter
--- OUTSIDE RECORDS SUMMARY | 2024-05-05 10:45 | XMS_ITS | Encounter Summary ---
Author Organization [facility] Address [facility] [place] [address] Care Team Providers Care Planner Scheduler Name Role Phone Virginia Cramer MD Primary Care Provider [phone] Encounter Details Date Type Department Care Team (Late st Contact Info) Description 02/10/2014 1:28 PM EST - 02/10/2014 3:56 PM EST Surgery [place] [phone] Jennifer Dick MD [facility] [place] [address] OSTEOTOMY, TIBIA (WRVU 10.86) Social History Tobacco [...] 02/10/2014 4:4 5 PM EST Growth Chart: [facility] (Girls, 2- 20 Years) documented in [...] to facilitate a bowel movement. Miralax, an tppx-muh-suiuunj medication can also be taken to help [...] your follow up appointment. Call your doctor (#[phone]) if you develop: 1. fevers greater than 100.5 2. severe nausea or vomiting 3. increasing pain not controlled by pain medications 4. increasing redness or drainage from incisions 5. Change in sensation FOLLOWUP APPOINTMENTS: 1. You will have followup appointments at [facility] as indicated in Future Appointment and Orders. [...] (AVS) and given to the patient or physician relations representative. 6) If VNA was ordered, I [...] 9:48 AM EST Office of Care Management(OCM)/Clinical Security Operations Center Operator(CRC) Initial Assessment CRC Service:Pediatrics and PICU CRCs: Marivel Vieira RN,BSN pager [phone] and Odalis Patiño pager [phone] Reviewed chart, nursing admission information, and discussed patient during rounds with the Pediatric team to assess continuing care and discharge needs O: Reviewed chart. Introduced self to parents/ caregiver and reviewed CRC role. Admitted with: Right leg tibial osteotomy and knee arthroscopy Home/community services prior to admission: None in chart. PCP: VIRGINIA CRAMER MD [phone] [place]: [place] [employer] Family supports: Lives with father and stepmother School/development issues: 8th grade Transportation @ d/c: Parents to provide Social Work consult: As needed Anticipated needs for discharge: Patient has crutches and [place] knee brace. PT to see patient this am and assess for any further equipment needs. P: CRC to follow with Team and Family for coordination of disposition if any needs arise. Kayla Alcaraz RN, CRC Office of Care Management Covering for: Marivel Vieira Pager: [phone]. * Cisco Rene - 02/11/2014 6:22 AM [...] control, dispo ?? Activity: TDWB RLE with [place] knee brace locked in extension at all times2 ?? Antibiotics: Cefazolin x 3 doses post-operatively ?? Antiicoagulation: Mechanical, Ibuprofen ?? Drains: None ?? Dressing/Spints: Keep in place until follow-up ?? Sierra: None. Voiding spontaneously ?? Dispo: Home when clears PT and pain controlled ?? Follow up:[address] Dick . CISCO RENE MD Orthopaedic Surgery Resident Pager #[phone] 02/11/2014 * Hema Parker - 02/10/2014 5:14 [...] Notes * Discharge Summary - Hema Parker - 02/11/2014 12:59 PM EST Discharge Summary Patient Name: Samreen Martinez Patient Age: 13 y.o. Language: Bengali Race: White Ethnicity: Not nor Admit date: 02/10/2014 Discharge date and time: 02/11/2014 Attending Physician: Jennifer Dick MD Discharge Physician: Jennifer Dick MD Follow-up Recommendations for Providers: Future Appointments Date Time Provider Department Center 02/20/2014 7:40 AM Jennifer Dick MD [facility] None Inpatient Provider Contact Information: Dr. Dick Trauma: [phone] After hours and weekends, call [facility] Skirt Panel Assembler, , and have Orthopedic resident paged. Discharge [...] %*) * Growth percentiles are based on [facility] 2-20 Years data. Height: Ht Readings from Last 1 Encounters: 02/10/14 157.5 cm (5' 2.01) (37.31 %*) * Growth percentiles are based on [facility] 2-20 Years data. HC: HC Readings from Last 1 Encounters: No data found for HC BMI: Body mass index is 37.85 kg/(m^2). Last value Range last 24 hrs Temperature Temp: 36.5 ??C (97.7 ??F) Temp: [36.5 ??C (97.7 ??F)-37 ??C (98.6 ??F)] Heart Rate Heart Rate: 76 Heart Rate: [73-120] Blood Pressure BP: 112/53 mmHg @hevpcdc37@ Respiratory Rate Resp: 20 Resp: [16-22] SpO2 SpO2: 98 % @bfxanzow36@ Art BP BP (Arterial Line): -- Functional [...] to facilitate a bowel movement. Miralax, an ggql-xoi-ovkzrel medication can also be taken to help [...] your follow up appointment. Call your doctor (#[phone]) if you develop: 1. fevers greater than 100.5 2. severe nausea or vomiting 3. increasing pain not controlled by pain medications 4. increasing redness or drainage from incisions 5. Change in sensation FOLLOWUP APPOINTMENTS: 1. You will have followup appointments at [facility] as indicated in Future Appointment and Orders. Youwill have an xray prior to those appointments so please come to Radiology, desk 3T, 1 hour BEFORE your appointment for those x-rays. Future Appointments Date Time Provider Department Center 02/20/2014 7:40 AM Jennifer Dick MD [facility] None Future Appointments and Orders Future Appointments Provider Department Dept Phone 02/20/2014 7:40 AM Jennifer Dick MD Orthopaedics [phone] Joint Appt Ortho, Questionnaire Three D Orthopaedics [phone] Future Orders Complete By Expires *XR generic [...] sponsor?: Primary Care Provider: VIRGINIA CRAMER MD [phone] Discharge References/Attachments None * Initial Assessments - [...] KNEE, DIAGNOSTIC performed by BRENDAN NAVARRO at [facility] OR ??? Apply long leg cast 08/31/2010 CAST APPLICATION, LONG LEG (THIGH TO TOES) performed by BRENDAN NAVARRO at [facility] OR ??? Knee scope, shave articular cart 08/31/2010 ARTHROSCOPY KNEE CHONDROPLASTY performed by BRENDAN NAVARRO at [facility] OR ??? Knee scope, drill oste diss+int fix 08/31/2010 ARTHROSCOPY KNEE, DRILLING & FIXATION OF OCD performed by BRENDAN NAVARRO at [facility] OR ??? Fix unstable patella, exten realign 12/16/2010 PATELLAR REALIGNMENT performed by BRENDAN NAVARRO at [facility] OR ??? Knee scope, remv loose body 12/16/2010 ARTHROSCOPY KNEE REMOVE LOOSE BODY performed by JENNIFER DICK at [facility] OR ??? Knee scope, abrasn arthroplasty 12/16/2010 ARTHROSCOPY KNEE, MULTIPLE DRILLING, MICROFRACTURE performed by JENNIFER DICK at [facility] OR ??? Apply long leg cast 12/16/2010 CAST APPLICATION, LONG LEG (THIGH TO TOES) performed by JENNIFER DICK at [facility] OR ??? Knee scope, part synovect 04/05/2011 ARTHROSCOPY KNEE SYNOVECTOMY LIMITED performed by JENNIFER DICK at [facility] OR ??? Drain/inject large joint/bursa 04/05/2011 ARTHROCENTESIS, ASPIRATION OR INJECTION, MAJOR JOINT OR BURSA, KNEE performed by JENNIFER DICK at [facility] OR ??? Knee scope, remv loose body 02/13/2012 ARTHROSCOPY KNEE REMOVE LOOSE BODY performed by JENNIFER DICK at [facility] OR ??? Arthrotomy/explore/treat knee joint 02/13/2012 ARTHROTOMY, KNEE WITH EXPLORATION performed by JENNIFER DICK at [facility] OR ??? Revision of unstable patella 02/13/2012 REPAIR DISLOCATING PATELLA performed by JENNIFER DICK at [facility] OR ??? Knee scope, abrasn arthroplasty 02/13/2012 ARTHROSCOPY KNEE, MULTIPLE DRILLING, MICROFRACTURE performed by JENNIFER DICK at [facility] OR ??? Osteotomy tibia Right 02/10/2014 OSTEOTOMY, TIBIA performed by Jennifer Dick MD at [facility] OR ??? Knee scope, remv loose body Right 02/10/2014 ARTHROSCOPY KNEE REMOVE LOOSE BODY performed by Jennifer Dick MD at [facility] OR ??? Revision of unstable patella Right 02/10/2014 REPAIR DISLOCATING PATELLA performed by Jennifer Dick MD at [facility] OR Social History: lives with father and strep mother in [facility], attends [email or web address] Elevator at school Will ride bus to/from school so will need to do a few steps One level homes both parents Up on crutches in past, familiar with use Precautions/Special Considerations: TDWB RLE , knee locked in extension in [place] brace Subjective: ???I get light headed with [...] Transfers:independent Gait: NWB - TDWB RLE in [place] locked at full extension, crutches Stairs x [...] R LE knee locked in ext in [place] brace Total time spent with patient: 35 minutes Total timed interventions: 10 Minutes TEF LILIANA RIDLEY, PT 02/11/2014 Pager: [phone] Physical Therapy Rehabilitation Department * Plan of [...] Pain/Comfort Assessments Pain Management Interventions multimodal measures utilized;gorkzi-dod-annyw dosing utilized;awakened for pain meds per patient [...] Dick MD - 02/10/2014 4:16 PM EST [facility] Operative Note Patient Name: Samreen Martinez : [id number] MR#: [id number] Case Date: 02/10/2014 Surgeon: Surgeon(s) and Role: [...] right thigh. A time-out was performed per [facility] time-out policy. An arthroscopy was first performed [...] using the 0 Vicryl stitches in a aignk-qjxx-bgyl type technique. This was done and noted [...] The knee was then placed into a [place] knee brace in full extension, locked. At the end of the case, all counts were correct. No tourniquet was used. Dr. dick was the attending physician who was present for all major portions of this case. * Brief Op Note - Jennifer Dick MD - 02/10/2014 2:46 PM EST Brief Operative Note Patient Name: Samreen Martinez : [id number] MR#: [id number] Case Date: 02/10/2014 Surgeon: Surgeon(s) and Role: [...] Implant Name Type Inv. Item Serial No. Community Youth Secretary Lot No. LRB No. Used Action SCREW,CRTX,STAP,4.5X42MM ([id number]) - [id number] IMPLANTS [id number] SYNTHES - [id number] Right 1 Implanted SCREW,CRTX,STAP,4.5X48MM ([id number]) - [id number] IMPLANTS 71011 SYNTHES - [id number] Right 1 Implanted PLAN: TDWB IN [place] [...] on 02/10/14 at 2000, Last dose on Mon02/11/14 at [...] 1527, Until Mon02/10/14 at 1545, ELIZA SAMANO: cabinet override ketorolac (TORADOL) injection 15 mg 15 mg [...] on Mon02/10/14 at 2000, Last dose on 11/25/14 at 1200, Administer over 30 Minutes, Indication for (Active or Suspected): Prophylaxis 2057 (Given - Provider: Lesly Quinteros, RN) 041 (Given - Provider: Lesly Quinteros, YOLY)1304 (Given [...] Discontinued, Routine 195 (Given - Provider: Heather Bradley RN) 0915 (Given - Provider: Pam Alexander) ibuprofen [...] 1658, Nausea 2000 (Given - Provider: Heather Bradley, YOLY) oxyCODONE (ROXICODONE) immediate release tablet 5-15 mg 5-15 mg (0.0532-0.1597 mg/kg/dose), Oral, EVERY 4 HOURS PRN, Starting on Mon02/10/14 at 1557, Until Mon02/11/14 at 1658, Pain, Routine 1607 (Given - Provider: Kasie Sharp RN) 0024 (Given - Provider: Lesly Quinteros, YOLY)0421 [...] Nausea documented in this encounter Care Teams Planner Scheduler Relationship Specialty Start Date [place] [address] PCP - General 04/27/10 07/16/15 documented as of this encounter
--- OUTSIDE RECORDS SUMMARY | 2024-05-05 10:45 | XMS_ITS | Encounter Summary ---
Author Organization Formerly [facility] Address [facility] [place] [address] Care Team Providers Care Finish Opener Name Role Phone Michelet Cramer MD Primary Care Provider [phone] Reason for Visit * Reason Comments Follow Up Surgery sp right knee fulker sons dos 02/10/14 Encounter Details Date Type Department Care Team (Late st Contact Info) Description 05/13/2014 2:30 PM EST Office [place] [id number] Benito Zhang MD [facility] DR [place] [address] Recurrent dislocation of right patella - s/p [...] 05/13/2014 2:4 5 PM EST Growth Chart: [facility] (Girls, 2- 20 Years) documented in this [...] stepfather during school year and father in [place] during summer. Review of Systems Objective: Physical [...] and Plan: Discuss progress with Amina at [facility] physical therapy. RTC in 8-12 [...] joint documented in this encounter Care Teams Finish Opener Relationship Specialty Start Date End Date Michelet Cramer MD [address] [place] [address] PCP - General 04/27/10 07/16/15 documented as of this encounter
--- OUTSIDE RECORDS SUMMARY | 2024-05-05 10:45 | XMS_ITS | Encounter Summary ---
Author Organization [facility] [place] [address] Care Team Providers Care Chip Mixing Machine Operator Name Role Phone Michelet Cramer MD Primary Care Provider [phone] Encounter Details Date Type Department Care Team (Late st Contact Info) Description 02/10/2014 12:40 PM EST Anesthesia [place] [phone] Dima Cooper MD Griswold, Sophie C, MD Anesthesia Record Procedure Summary Procedure Name Responsible [...] GA. 1301 Anesthesia Ready 1319 Break/Relief In CHERELLE BALLESTEROS [facility] 1322 Procedure Start 1346 Break/Relief [...] 1232; median cubital vein left (antecubital fossa); uduk-jzd-jxsfnv catheter system; 20 gauge; Roberta Schafer RN; intradermal injection, distraction, tolerated well, appears comfortable, age-appropriate response; 0; no longer indicated; 02/11/14 02/10/14 1232 by Yamileth Kramer, RN 02/11/14 0000 by Ramandeep Swartz APRN [...] Length: 5 cm Gauge: 22 Needle Type: C-nhein-suoad Medication injection made incrementally with aspirations. Nerve [...] performed by BRENDAN NAVARRO at [facility] OR ??? Apply long leg cast 08/31/2010 CAST APPLICATION, LONG LEG (THIGH TO TOES) performed by BRENDAN NAVARRO at [facility] OR ??? Knee scope, shave articular cart 08/31/2010 ARTHROSCOPY KNEE CHONDROPLASTY performed by BRENDAN NAVARRO at [facility] OR ??? Knee scope, drill oste diss+int fix 08/31/2010 ARTHROSCOPY KNEE, DRILLING & FIXATION OF OCD performed by BRENDAN NAVARRO at [facility] OR ??? Fix unstable patella, exten realign 12/16/2010 PATELLAR REALIGNMENT performed by BRENDAN NAVARRO at [facility] OR ??? Knee scope, remv loose body 12/16/2010 ARTHROSCOPY KNEE REMOVE LOOSE BODY performed by JENNIFER GUNTER at [facility] OR ??? Knee scope, abrasn arthroplasty 12/16/2010 ARTHROSCOPY KNEE, MULTIPLE DRILLING, MICROFRACTURE performed by JENNIFER GUNTER at [facility] OR ??? Apply long leg cast 12/16/2010 CAST APPLICATION, LONG LEG (THIGH TO TOES) performed by JENNIFER GUNTER at [facility] OR ??? Knee scope, part synovect 04/05/2011 ARTHROSCOPY KNEE SYNOVECTOMY LIMITED performed by JENNIFER GUNTER at [facility] OR ??? Drain/inject large joint/bursa 04/05/2011 ARTHROCENTESIS, ASPIRATION OR INJECTION, MAJOR JOINT OR BURSA, KNEE performed by JENNIFER GUNTER at [facility] OR ??? Knee scope, remv loose body 02/13/2012 ARTHROSCOPY KNEE REMOVE LOOSE BODY performed by JENNIFER GUNTER at [facility] OR ??? Arthrotomy/explore/treat knee joint 02/13/2012 ARTHROTOMY, KNEE WITH EXPLORATION performed by JENNIFER GUNTER at [facility] OR ??? Revision of unstable patella 02/13/2012 REPAIR DISLOCATING PATELLA performed by JENNIFER GUNTER at [facility] OR ??? Knee scope, abrasn arthroplasty 02/13/2012 ARTHROSCOPY KNEE, MULTIPLE DRILLING, MICROFRACTURE performed by JENNIFER GUNTER at [facility] OR History Substance Use Topics [...] Pulmonary Assessment: Dental Assessment: - normal exam [facility] Assessment: Anesthesia Plan: ASA 2 general and [...] to blood products. Plan discussed with resident. [facility] Assessment: documented in this encounter Plan of [...] Length: 5 cm Gauge: 22 Needle Type: O-vkwvf-dyxsb Medication injection made incrementally with aspirations. Nerve [...] Physician: ??Vickey ROSE ~~~~~~~~~~~~~~~~~~~~~~~~~~~~~~~~~~~~~~~~~~~~~~~~~~~~~~~~~~~~ Karen Goss MD BOILER HOUSE SUPERVISOR GS documented in this encounter Visit Diagnoses Not [...] mg documented in this encounter Care Teams Chip Mixing Machine Operator Relationship Specialty Start Date End Date Michelet Cramer MD [address] [facility] [place] [address] PCP - General 04/27/10 07/16/15 documented as of this encounter
--- OUTSIDE RECORDS SUMMARY | 2024-05-05 10:45 | XMS_ITS | Encounter Summary ---
Author Organization [facility] Address [facility] [place] [address] Care Team Providers Care Career Services Coordinator Name Role Phone Michelet Cramer MD Primary Care Provider [phone] Reason for Visit * Reason Onset Date Comments Results 07/28/2014 Encounter Details Date Type Department Care Team (Late st Contact Info) Description 07/28/2014 Telephone [place] [phone] Benito Zhang MD [facility] DR [place] [address] Results Social History Tobacco Use Types Packs/Day [...] - message left requesting call back to [phone]. * Telephone Encounter - Annemarie De León - 07/28/2014 10:52 AM EDT What study is patient calling about? mri Per [facility] the study was done: 5.4.15 Per [facility] the results are final: yes Best number to reach the patient # Mehran Muller [phone] after 2PM today. Tomorrow until 2:30PM and Wed any time. I will forward your message to the team and someone will follow up with you within 48 hours. documented in this encounter Plan of Treatment Not on file documented as of this encounter Visit Diagnoses Not on filedocumented in this encounter Care Teams Career Services Coordinator Relationship Specialty Start Date End Date Michelet Cramer MD [address] [place] [address] [place] [address] PCP - General 04/27/10 07/16/15 documented as of this encounter
--- OUTSIDE RECORDS SUMMARY | 2024-05-05 10:45 | XMS_ITS | Encounter Summary ---
Author Organization Formerly [facility] Address [facility] [place] [address] Care Team Providers Care Automatic Buffing Wheel Former Name Role Phone Michelet Cramer MD Primary Care Provider [phone] Encounter Details Date Type Department Care Team (Latest Contact Info) Description 05/13/2014 2:07 PM EST - 05/13/2014 11:59 PM EST Hospital Encounter XRay at [address] [place] [address] Recurrent dislocation of right patella - s/p [...] Benito osteotomy, medial imbrication, lateral release (02/10/14) documented [...] joint documented in this encounter Care Teams Automatic Buffing Wheel Former Relationship Specialty Start Date End Date Michelet Cramer MD [address] [place] [address] PCP - General 04/27/10 07/16/15 documented as of this encounter
--- OUTSIDE RECORDS SUMMARY | 2024-05-05 10:45 | XMS_ITS | Encounter Summary ---
Author Organization [facility] Address [facility] [place] [address] Care Team Providers Care Civil Litigation Attorney Name Role Phone Michelet Cramer MD Primary Care Provider [phone] Reason for Visit * Reason Comments Follow Up Surgery Right Knee DOS 02/10 Encounter Details Date Type Department Care Team (Late st Contact Info) Description 07/15/2014 3:00 PM EDT Office [place] [address] Benito Zhang MD [facility] [place] [address] Effusion of knee joint, left Discharge Disposition: [...] 07/15 3:00 PM EDT Growth Chart: [facility] (Girls, 2- 20 Years) documented [...] knee -- this will be done at [facility]. Dr. Zhang will contact them with the [...] joint documented in this encounter Care Teams Civil Litigation Attorney Relationship Specialty Start Date End Date Michelet Cramer MD [address] [place] [address] PCP - General 04/27/10 07/16/15 documented as of this encounter
--- OUTSIDE RECORDS SUMMARY | 2024-05-05 10:45 | XMS_ITS | Encounter Summary ---
Author Organization [facility] [place] [address] Care Team Providers Care Card Clothier Name Role Phone Michelet Cramer MD Primary Care Provider [phone] Reason for Visit * Reason Onset Date Comments Follow-up 06/03/2014 Encounter Details Date Type Department Care Team (Late st Contact Info) Description 06/03/2014 Telephone [place] [phone] Chichi Meredith, RN Follow-up Social History Tobacco Use Types [...] on filedocumented in this encounter Care Teams Card Clothier Relationship Specialty Start Date End Date Michelet Cramer MD [address] [place] [address] PCP - General 04/27/10 07/16/15 documented as of this encounter
--- OUTSIDE RECORDS SUMMARY | 2024-05-05 10:45 | XMS_ITS | Encounter Summary ---
Author Organization [facility] Address [facility] [place] [address] Care Team Providers Care Vp Transportation Name Role Phone Michelet Cramer MD Primary Care Provider [phone] Reason for Visit * Reason Onset Date Comments Prior Authorization 07/16/2014 Encounter Details Date Type Department Care Team (Late st Contact Info) Description 07/16/2014 Telephone [place] [address] Benito Zhang MD [facility] [place] [address] Prior Authorization Social History Tobacco Use Types [...] [facility] has been obtained. # [id number]. LM for patient's mom, Winsome letting her know that she needs to call [facility] to schedule Samreen's MRI lidaey do not call out to schedule. Also [...] on filedocumented in this encounter Care Teams Vp Transportation Relationship Specialty Start Date End Date Michelet Cramer MD [address] [place] [address] PCP - General 04/27/10 07/16/15 documented as of this encounter
--- OUTSIDE RECORDS SUMMARY | 2024-05-05 10:45 | XMS_ITS | Encounter Summary ---
Author Organization [facility] [place] [address] Care Team Providers Care Superintendent Storage Area Name Role Phone Michelet Cramer MD Primary Care Provider [phone] Reason for Visit * Reason Onset Date Comments Other 04/15/2014 Encounter Details Date Type Department Care Team (Late st Contact Info) Description 04/15/2014 Telephone [place] [phone] Maryellen Watson Other Social History Tobacco Use [...] EST Mom called requesting Op notes from [phone] be faxed to her per PT doctors request. I have sent these and asked for her to call back if they dont go through so we can resend. Moms name Winsome Chavarria documented in this encounter Plan of Treatment Not on file documented as of this encounter Visit Diagnoses Not on filedocumented in this encounter Care Teams Superintendent Storage Area Relationship Specialty Start Date End Date Michelet Cramer MD [address] [place] [address] PCP - General 04/27/10 07/16/15 documented as of this encounter
--- OUTSIDE RECORDS SUMMARY | 2024-05-05 10:45 | XMS_ITS | Encounter Summary ---
Author Organization [facility] Address [facility] [place] [address] Care Team Providers Care Advisory Application Developer Name Role Phone Virginia Cramer MD Primary Care Provider [phone] Encounter Details Date Type Department Care Team (Late st Contact Info) Description 09/08/2014 7:30 AM EDT - 09/08/2014 9:58 AM EDT [place] [id number] Jennifer Zhang MD [facility] [place] [address] OSTEOTOMY, TIBIA (WRVU 10.86) Social History Tobacco [...] Samreen Martinez Patient Age: 14 y.o. Language: German Race: White Ethnicity: Not nor Admit date: 09/08/2014 Discharge date and time: 09/09/2014 Attending Physician: Jennifer Zhang MD Discharge Physician: Jennifer Zhang MD Follow-up Recommendations for Providers: Future Appointments Date Time Provider Department Center 09/16/2014 3:30 PM Jennifer Zhang MD [facility] None Inpatient Provider Contact Information: Dr. Jennifer Zhang MD Trauma: [phone] After hours and weekends, [place] [facility] [employer], , and have Orthopedic resident paged. Discharge Diagnoses (Hospital Problems) and Secondary Diagnoses (Chronic Problems): Active Hospital Problems Diagnosis ??? s/p left knee Shira osteotomy and lateral release 09/08/14 ([place]) Resolved Hospital Problems Diagnosis Date Resolved No resolved problems to display. Active Non-Hospital Problems Diagnosis ??? Knee pain, right ? ? R knee arthroscopy, microfracture & medial patellar realignment procedure 02/12 [place] ??? Effusion of knee joint ??? Effusion [...] Weight: Wt Readings from Last 1 Encounters: // 97 kg (213 lb 13.5 oz) (99.32 %*) * Growth percentiles are based on CDC 2-20 Years data. Height: Ht Readings from Last 1 Encounters: 09/08/ 160 cm (5' 2.99) (44.44 %*) * [...] Rate: [86-94] Blood Pressure BP: 112/61 mmHg @warizhe59@ Respiratory Rate Resp: 16 Resp: [16-18] SpO2 SpO2: 98 % @euflxffd77@ Art BP BP (Arterial Line): -- Functional [...] [place], tofacilitate a bowel movement. Miralax, an vfrm-auq-gxvnkaf medication can also be taken to help [...] stitches to be removed. Call your doctor (#[phone]) if you develop: 1. fevers greater than 100.5 2. severe nausea or vomiting 3. increasing pain not controlled by pain medications 4. increasing redness or drainage from incisions 5. Change in sensation FOLLOWUP APPOINTMENTS: 1. You will have followup appointments at [facility] as indicated in Future Appointment and Orders. [...] Time Provider Department Center 09/16/2014 3:30 PM Jennifre Zhang MD [facility] None General Instructions None Future Appointments and Orders Future Appointments Provider Department Dept Phone 09/16/2014 3:30 PM Jennifer Zhang MD Orthopaedics [phone] Joint Appt ORTHO, QUESTIONNAIRE THREE D [facility] [phone] Future Orders Complete By Expires XR knee 4 or more views [84141 Custom] 09/08/2014 (Approximate) 09/08/2015 Process Instructions: Scheduling [...] sponsor?: Primary Care Provider: VIRGINIA CRAMER MD [phone] Discharge References/Attachments None documented in this encounter [...] [place], tofacilitate a bowel movement. Miralax, an yhkb-mii-qkujvzs medication can also be taken to help [...] stitches to be removed. Call your doctor (#[phone]) if you develop: 1. fevers greater than 100.5 2. severe nausea or vomiting 3. increasing pain not controlled by pain medications 4. increasing redness or drainage from incisions 5. Change in sensation FOLLOWUP APPOINTMENTS: 1. You will have followup appointments at [facility] as indicated in Future Appointment and Orders. [...] KNEE, DIAGNOSTIC performed by BRENDAN NAVARRO at [facility] OR ??? Apply long leg cast 08/31/2010 CAST APPLICATION, LONG LEG (THIGH TO TOES) performed by BRENDAN NAVARRO at [facility] OR ??? Knee scope, shave articular cart 08/31/2010 ARTHROSCOPY KNEE CHONDROPLASTY performed by BRENDAN NAVARRO at [facility] OR ??? Knee scope, drill oste diss+int fix 08/31/2010 ARTHROSCOPY KNEE, DRILLING & FIXATION OF OCD performed by BRENDAN NAVARRO at [facility] OR ??? Fix unstable patella, exten realign 12/16/2010 PATELLAR REALIGNMENT performed by BRENDAN NAVARRO at [facility] OR ??? Knee scope, remv loose body 12/16/2010 ARTHROSCOPY KNEE REMOVE LOOSE BODY performed by JENNIFER ZHANG at [facility] OR ??? Knee scope, abrasn arthroplasty 12/16/2010 ARTHROSCOPY KNEE, MULTIPLE DRILLING, MICROFRACTURE performed by JENNIFER ZHANG at [facility] OR ??? Apply long leg cast 12/16/2010 CAST APPLICATION, LONG LEG (THIGH TO TOES) performed by JENNIFER ZHANG at [facility] OR ??? Knee scope, part synovect 04/05/2011 ARTHROSCOPY KNEE SYNOVECTOMY LIMITED performed by JENNIFER ZHANG at [facility] OR ??? Drain/inject large joint/bursa 04/05/2011 ARTHROCENTESIS, ASPIRATION OR INJECTION, MAJOR JOINT OR BURSA, KNEE performed by JENNIFER ZHANG at [facility] OR ??? Knee scope, remv loose body 02/13/2012 ARTHROSCOPY KNEE REMOVE LOOSE BODY performed by JENNIFER ZHANG at [facility] OR ??? Arthrotomy/explore/treat knee joint 02/13/2012 ARTHROTOMY, KNEE WITH EXPLORATION performed by JENNIFER ZHANG at [facility] OR ??? Revision of unstable patella 02/13/2012 REPAIR DISLOCATING PATELLA performed by JENNIFER ZHANG at [facility] OR ??? Knee scope, abrasn arthroplasty 02/13/2012 ARTHROSCOPY KNEE, MULTIPLE DRILLING, MICROFRACTURE performed by JENNIFER ZHANG at [facility] OR ??? Osteotomy tibia Right 02/10/2014 OSTEOTOMY, TIBIA performed by Jennifer Zhang MD at [facility] OR ??? Knee scope, remv loose body Right 02/10/2014 ARTHROSCOPY KNEE REMOVE LOOSE BODY performed by Jennifer Zhang MD at [facility] OR ??? Revision of unstable patella Right 02/10/2014 REPAIR DISLOCATING PATELLA performed by Jennifer Zhang MD at [facility] OR Social History: Patient lives with their [...] TDWB on L LE with leg in [place] brace locked at 0 deg extension. Swing [...] minutes LUPILLO Barbosa, PT Evaluation: 09/08/2014 Pager: [phone] Physical Therapy Rehabilitation Department * Sujatah Rand MD - 09/09/2014 6:42 AM EDT [...] knee Shira osteotomy and lateral release 09/08/14 (Zhang) 09/08/2014 ??? 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 Knee pain, right 01/12/2012 ? ? R knee arthroscopy, microfracture & medial patellar realignment procedure 02/12 [place] 09/20/2011 ??? Effusion of knee joint 08/16/2010 [...] reviewed - continue all post-operative care * ramez Florence Miguel Angel - 09/08/2014 9:09 AM EDT Patient's Name: [...] services or information. USHA Velázquez, CCLS Certified Director Of Aviation Office: [id number] Pager: [phone] documented in this encounter H&P Notes * [...] Notes * Plan of Care - Maya Andrews RN - 09/09/2014 1:06 PM EDT [...] (AVS) and given to the patient or branch customer service representative. 6) If VNA was ordered, [...] KNEE, DIAGNOSTIC performed by BRENDAN NAVARRO at [facility] OR ??? Apply long leg cast 08/31/2010 CAST APPLICATION, LONG LEG (THIGH TO TOES) performed by BRENDAN NAVARRO at [facility] OR ??? Knee scope, shave articular cart 08/31/2010 ARTHROSCOPY KNEE CHONDROPLASTY performed by BRENDAN NAVARRO at [facility] OR ??? Knee scope, drill oste diss+int fix 08/31/2010 ARTHROSCOPY KNEE, DRILLING & FIXATION OF OCD performed by BRENDAN NAVARRO at [facility] OR ??? Fix unstable patella, exten realign 12/16/2010 PATELLAR REALIGNMENT performed by BRENDAN NAVARRO at [facility] OR ??? Knee scope, remv loose body 12/16/2010 ARTHROSCOPY KNEE REMOVE LOOSE BODY performed by JENNIFER ZHANG at [facility] OR ??? Knee scope, abrasn arthroplasty 12/16/2010 ARTHROSCOPY KNEE, MULTIPLE DRILLING, MICROFRACTURE performed by JENNIFER ZHANG at [facility] OR ??? Apply long leg cast 12/16/2010 CAST APPLICATION, LONG LEG (THIGH TO TOES) performed by JENNIFER ZHANG at [facility] OR ??? Knee scope, part synovect 04/05/2011 ARTHROSCOPY KNEE SYNOVECTOMY LIMITED performed by JENNIFER ZHANG at [facility] OR ??? Drain/inject large joint/bursa 04/05/2011 ARTHROCENTESIS, ASPIRATION OR INJECTION, MAJOR JOINT OR BURSA, KNEE performed by JENNIFER ZHAGN at [facility] OR ??? Knee scope, remv loose body 02/13/2012 ARTHROSCOPY KNEE REMOVE LOOSE BODY performed by JENNIFER ZHANG at [facility] OR ??? Arthrotomy/explore/treat knee joint 02/13/2012 ARTHROTOMY, KNEE WITH EXPLORATION performed by JENNIFER ZHANG at [facility] OR ??? Revision of unstable patella 02/13/2012 REPAIR DISLOCATING PATELLA performed by JENNIFER ZHANG at [facility] OR ??? Knee scope, abrasn arthroplasty 02/13/2012 ARTHROSCOPY KNEE, MULTIPLE DRILLING, MICROFRACTURE performed by JENNIFER ZHANG at [facility] OR ??? Osteotomy tibia Right 02/10/2014 OSTEOTOMY, TIBIA performed by Jennifer Zhang MD at [facility] OR ??? Knee scope, remv loose body Right 02/10/2014 ARTHROSCOPY KNEE REMOVE LOOSE BODY performed by Jennifer Zhang MD at [facility] OR ??? Revision of unstable patella Right 02/10/2014 REPAIR DISLOCATING PATELLA performed by Jennifer Zhang MD at [facility] OR ??? Osteotomy tibia Left 09/08/2014 OSTEOTOMY, TIBIA performed by Jennifer Zhang MD at [facility] OR ??? Knee scope, diagnostic Left 09/08/2014 ARTHROSCOPY KNEE, DIAGNOSTIC performed by Jennifer Zhang MD at [facility] OR Social History: Patient lives with her [...] Impaired LLE ROM and strength. Pt with [place] knee brace donned and locked at 0. [...] you for this occupational therapy consult. Pager: [phone] Rola Babcock OT 09/09/2014 Occupational Therapy Rehabilitation [...] KNEE, DIAGNOSTIC performed by BRENDAN NAVARRO at [facility] OR ??? Apply long leg cast 08/31/2010 CAST APPLICATION, LONG LEG (THIGH TO TOES) performed by BRENDAN NAVARRO at [facility] OR ??? Knee scope, shave articular cart 08/31/2010 ARTHROSCOPY KNEE CHONDROPLASTY performed by BRENDAN NAVARRO at [facility] OR ??? Knee scope, drill oste diss+int fix 08/31/2010 ARTHROSCOPY KNEE, DRILLING & FIXATION OF OCD performed by BRENDAN NAVARRO at [facility] OR ??? Fix unstable patella, exten realign 12/16/2010 PATELLAR REALIGNMENT performed by BRENDAN NAVARRO at [facility] OR ??? Knee scope, remv loose body 12/16/2010 ARTHROSCOPY KNEE REMOVE LOOSE BODY performed by JENNIFER ZHANG at [facility] OR ??? Knee scope, abrasn arthroplasty 12/16/2010 ARTHROSCOPY KNEE, MULTIPLE DRILLING, MICROFRACTURE performed by JENNIFER ZHANG at [facility] OR ??? Apply long leg cast 12/16/2010 CAST APPLICATION, LONG LEG (THIGH TO TOES) performed by JENNIFER ZHANG at [facility] OR ??? Knee scope, part synovect 04/05/2011 ARTHROSCOPY KNEE SYNOVECTOMY LIMITED performed by JENNIFER ZHANG at [facility] OR ??? Drain/inject large joint/bursa 04/05/2011 ARTHROCENTESIS, ASPIRATION OR INJECTION, MAJOR JOINT OR BURSA, KNEE performed by JENNIFER ZHANG at [facility] OR ??? Knee scope, remv loose body 02/13/2012 ARTHROSCOPY KNEE REMOVE LOOSE BODY performed by JENNIFER ZHANG at [facility] OR ??? Arthrotomy/explore/treat knee joint 02/13/2012 ARTHROTOMY, KNEE WITH EXPLORATION performed by JENNIFER ZHANG at [facility] OR ??? Revision of unstable patella 02/13/2012 REPAIR DISLOCATING PATELLA performed by JENNIFER ZHANG at [facility] OR ??? Knee scope, abrasn arthroplasty 02/13/2012 ARTHROSCOPY KNEE, MULTIPLE DRILLING, MICROFRACTURE performed by JENNIFER ZHANG at [facility] OR ??? Osteotomy tibia Right 02/10/2014 OSTEOTOMY, TIBIA performed by Jennifer Zhang MD at [facility] OR ??? Knee scope, remv loose body Right 02/10/2014 ARTHROSCOPY KNEE REMOVE LOOSE BODY performed by Jennifer Zhang MD at [facility] OR ??? Revision of unstable patella Right 02/10/2014 REPAIR DISLOCATING PATELLA performed by Jennifer Zhang MD at [facility] OR Social History: Patient lives with their [...] person, place, and time Musculoskeletal: ROM: Impaired. [place] knee brace donned and locked at 0. [...] TDWB on L LE with leg in [place] brace locked at 0 deg extension. Mildly [...] 0 minutes Katey Barbosa PT 09/08/2014 Pager: [phone] Physical Therapy Rehabilitation Department * Op Note [...] planned surgery, and site according to the [facility] [place] [facility]. The left leg was prepped and [...] Operative Note Patient Name: Samreen Martinez : [id number] MR#: [id number] Case Date: 09/08/2014 Surgeon: Surgeon(s) and Role: [...] Narayanan, YOLY) 218 (Given - Provider: Pam Narayanan, YOLY)0805 (Given [...] Routine documented in this encounter Care Teams Advisory Application Developer Relationship Specialty Start Date End Date Virginia Cramer MD [address] [facility] [place] [address] PCP - General 04/27/10 07/16/15 documented as of this encounter
--- OUTSIDE RECORDS SUMMARY | 2024-05-05 10:45 | XMS_ITS | Encounter Summary ---
Author Organization [facility] Address [facility] [place] [address] Care Team Providers Care Ground Products Director Name Role Phone Michelet Cramer MD Primary Care Provider [phone] Reason for Visit * Reason Onset Date Comments Right Knee Pain 03/07/2012 Encounter Details Date Type Department Care Team (Late st Contact Info) Description 03/07/2012 [place] [phone] Chichi Meredith RN Right Knee Pain Social [...] on filedocumented in this encounter Care Teams Ground Products Director Relationship Specialty Start Date End Date Michelet Cramer MD [address] [place] [address] [facility] [place] [address] PCP - General 04/27/10 07/16/15 documented as of this encounter
--- OUTSIDE RECORDS SUMMARY | 2024-05-05 10:45 | XMS_ITS | Encounter Summary ---
Author Organization [facility] Address [facility] [place] [address] Care Team Providers Care Grocery Store Manager Name Role Phone Virginia Cramer MD Primary Care Provider [phone] Encounter Details Date Type Department Care Team (Latest Contact Info) Description 09/08/2014 6:27 AM EDT - 09/09/2014 12:58 PM EDT Hospital Encounter [place] [id number] Jennifer Zhang MD [facility] [place] [address] Effusion of knee joint, left (Primary Dx) [...] 09/08/2014 6:5 5 AM EDT Growth Chart: [facility] (Girls, 2- 20 Years) documented in this encounter Discharge Summaries * Hema Parker - 09/09/2014 11:45 AM EDT Discharge Summary Patient Name: Samreen Martinez Patient Age: 14 y.o. Language: Setswana Race: White Ethnicity: Not nor Admit date: 09/08/2014 Discharge date and time: 09/09/2014 Attending Physician: Jennifer Zhang MD Discharge Physician: Jennifer Zhang MD Follow-up Recommendations for Providers: Future Appointments Date Time Provider Department Center 09/16/2014 3:30 PM Jennifer Zhang MD [facility] None Inpatient Provider Contact Information: Dr. Jennifer Zhang MD Trauma: [phone] After hours and weekends, call [facility] Functional Tester, , and have Orthopedic resident paged. Discharge [...] Rate: [86-94] Blood Pressure BP: 112/61 mmHg @bmndqed12@ Respiratory Rate Resp: 16 Resp: [16-18] SpO2 SpO2: 98 % @rbjficuu54@ Art BP BP (Arterial Line): -- Functional [...] Sennakot, tofacilitate a bowel movement. Miralax, an sjcb-kbc-emxjmmp medication can also be taken to help [...] stitches to be removed. Call your doctor (#[phone]) if you develop: 1. fevers greater than 100.5 2. severe nausea or vomiting 3. increasing pain not controlled by pain medications 4. increasing redness or drainage from incisions 5. Change in sensation FOLLOWUP APPOINTMENTS: 1. You will have followup appointments at [facility] as indicated in Future Appointment and Orders. [...] 09/16/2014 3:30 PM Jennifer Zhang MD Orthopaedics [phone] Joint Appt ORTHO, QUESTIONNAIRE THREE D Orthopaedics [phone] Future Orders Complete By Expires XR knee 4 or more views [[id number] Custom] 09/08/2014 (Approximate) 09/08/2015 Process Instructions: Scheduling [...] sponsor?: Primary Care Provider: VIRGINIA CRAMER MD [phone] Discharge References/Attachments None documented in this encounter [...] Sennakot, tofacilitate a bowel movement. Miralax, an lcly-umo-vaunxvb medication can also be taken to help [...] stitches to be removed. Call your doctor (#[phone]) if you develop: 1. fevers greater than 100.5 2. severe nausea or vomiting 3. increasing pain not controlled by pain medications 4. increasing redness or drainage from incisions 5. Change in sensation FOLLOWUP APPOINTMENTS: 1. You will have followup appointments at [facility] as indicated in Future Appointment and Orders. [...] KNEE, DIAGNOSTIC performed by BRENDAN NAVARRO at [facility] OR ??? Apply long leg cast 08/31/2010 CAST APPLICATION, LONG LEG (THIGH TO TOES) performed by BRENDAN NAVARRO at [facility] OR ??? Knee scope, shave articular cart 08/31/2010 ARTHROSCOPY KNEE CHONDROPLASTY performed by BRENDAN NAVARRO at [facility] OR ??? Knee scope, drill oste diss+int fix 08/31/2010 ARTHROSCOPY KNEE, DRILLING & FIXATION OF OCD performed by BRENDAN NAVARRO at [facility] OR ??? Fix unstable patella, exten realign 12/16/2010 PATELLAR REALIGNMENT performed by BRENDAN NAVARRO at [facility] OR ??? Knee scope, remv loose body 12/16/2010 ARTHROSCOPY KNEE REMOVE LOOSE BODY performed by JENNIFER ZHANG at [facility] OR ??? Knee scope, abrasn arthroplasty 12/16/2010 ARTHROSCOPY KNEE, MULTIPLE DRILLING, MICROFRACTURE performed by JENNIFER ZHANG at [facility] OR ??? Apply long leg cast 12/16/2010 CAST APPLICATION, LONG LEG (THIGH TO TOES) performed by JENNIFER ZHANG at [facility] OR ??? Knee scope, part synovect 04/05/2011 ARTHROSCOPY KNEE SYNOVECTOMY LIMITED performed by JENNIFER ZHANG at [facility] OR ??? Drain/inject large joint/bursa 04/05/2011 ARTHROCENTESIS, ASPIRATION OR INJECTION, MAJOR JOINT OR BURSA, KNEE performed by JENNIFER ZHANG at [facility] OR ??? Knee scope, remv loose body 02/13/2012 ARTHROSCOPY KNEE REMOVE LOOSE BODY performed by JENNIFER ZHANG at [facility] OR ??? Arthrotomy/explore/treat knee joint 02/13/2012 ARTHROTOMY, KNEE WITH EXPLORATION performed by JENNIFER ZHANG at [facility] OR ??? Revision of unstable patella 02/13/2012 REPAIR DISLOCATING PATELLA performed by JENNIFER ZHANG at [facility] OR ??? Knee scope, abrasn arthroplasty 02/13/2012 ARTHROSCOPY KNEE, MULTIPLE DRILLING, MICROFRACTURE performed by JENNIFER ZHANG at [facility] OR ??? Osteotomy tibia Right 02/10/2014 OSTEOTOMY, TIBIA performed by Jennifer Zhang MD at [facility] OR ??? Knee scope, remv loose body Right 02/10/2014 ARTHROSCOPY KNEE REMOVE LOOSE BODY performed by Jennifer Zhang MD at [facility] OR ??? Revision of unstable patella Right 02/10/2014 REPAIR DISLOCATING PATELLA performed by Jennifer Zhang MD at [facility] OR Social History: Patient lives with [...] TDWB on L LE with leg in [place] brace locked at 0 deg extension. Swing [...] minutes LUPILLO Barbosa, PT Evaluation: 09/08/2014 Pager: [phone] Physical Therapy Rehabilitation Department * Sujatha Rand [...] microfracture & medial patellar realignment procedure 02/12 [place] 09/20/2011 ??? Effusion of knee joint 08/16/2010 [...] services or information. USHA Velázquez, CCLS Certified Genetic Supervisor Office: [phone] Pager: [phone] documented in this encounter H&P Notes * [...] (AVS) and given to the patient or welding equipment sales representative. 6) If VNA was ordered, [...] KNEE, DIAGNOSTIC performed by BRENDAN NAVARRO at [facility] OR ??? Apply long leg cast 08/31/2010 CAST APPLICATION, LONG LEG (THIGH TO TOES) performed by BRENDAN NAVARRO at [facility] OR ??? Knee scope, shave articular cart 08/31/2010 ARTHROSCOPY KNEE CHONDROPLASTY performed by BRENDAN NAVARRO at [facility] OR ??? Knee scope, drill oste diss+int fix 08/31/2010 ARTHROSCOPY KNEE, DRILLING & FIXATION OF OCD performed by BRENDAN NAVARRO at [facility] OR ??? Fix unstable patella, exten realign 12/16/2010 PATELLAR REALIGNMENT performed by BRENDAN NAVARRO at [facility] OR ??? Knee scope, remv loose body 12/16/2010 ARTHROSCOPY KNEE REMOVE LOOSE BODY performed by JENNIFER ZHANG at [facility] OR ??? Knee scope, abrasn arthroplasty 12/16/2010 ARTHROSCOPY KNEE, MULTIPLE DRILLING, MICROFRACTURE performed by JENNIFER ZHANG at [facility] OR ??? Apply long leg cast 12/16/2010 CAST APPLICATION, LONG LEG (THIGH TO TOES) performed by JENNIFER ZHANG at [facility] OR ??? Knee scope, part synovect 04/05/2011 ARTHROSCOPY KNEE SYNOVECTOMY LIMITED performed by JENNIFER ZHANG at [facility] OR ??? Drain/inject large joint/bursa 04/05/2011 ARTHROCENTESIS, ASPIRATION OR INJECTION, MAJOR JOINT OR BURSA, KNEE performed by JENNIFER ZHANG at [facility] OR ??? Knee scope, remv loose body 02/13/2012 ARTHROSCOPY KNEE REMOVE LOOSE BODY performed by JENNIFER ZHANG at [facility] OR ??? Arthrotomy/explore/treat knee joint 02/13/2012 ARTHROTOMY, KNEE WITH EXPLORATION performed by JENNIFER ZHANG at [facility] OR ??? Revision of unstable patella 02/13/2012 REPAIR DISLOCATING PATELLA performed by JENNIFER ZHANG at [facility] OR ??? Knee scope, abrasn arthroplasty 02/13/2012 ARTHROSCOPY KNEE, MULTIPLE DRILLING, MICROFRACTURE performed by JENNIFER ZHANG at [facility] OR ??? Osteotomy tibia Right 02/10/2014 OSTEOTOMY, TIBIA performed by Jennifer Zhang MD at [facility] OR ??? Knee scope, remv loose body Right 02/10/2014 ARTHROSCOPY KNEE REMOVE LOOSE BODY performed by Jennifer Zhang MD at [facility] OR ??? Revision of unstable patella Right 02/10/2014 REPAIR DISLOCATING PATELLA performed by Jennifer Zhang MD at [facility] OR ??? Osteotomy tibia Left 09/08/2014 OSTEOTOMY, TIBIA performed by Jennifer Zhang MD at [facility] OR ??? Knee scope, diagnostic Left 09/08/2014 ARTHROSCOPY KNEE, DIAGNOSTIC performed by Jennifer Zhang MD at [facility] OR Social History: Patient lives with [...] you for this occupational therapy consult. Pager: [phone] Rola Babcock OT 09/09/2014 Occupational Therapy Rehabilitation [...] progress toward outcome * Initial Assessments - HickmanKatey O, PT - 09/08/2014 2:51 PM EDT [...] diagnostic 08/31/2010 ARTHROSCOPY KNEE, DIAGNOSTIC performed by BRENADN NAVARRO at [facility] OR ??? Apply long leg cast 08/31/2010 CAST APPLICATION, LONG LEG (THIGH TO TOES) performed by BRENDAN NAVARRO at [facility] OR ??? Knee scope, shave articular cart 08/31/2010 ARTHROSCOPY KNEE CHONDROPLASTY performed by BRENDAN NAVARRO at [facility] OR ??? Knee scope, drill oste diss+int fix 08/31/2010 ARTHROSCOPY KNEE, DRILLING & FIXATION OF OCD performed by BRENDAN NAVARRO at [facility] OR ??? Fix unstable patella, exten realign 12/16/2010 PATELLAR REALIGNMENT performed by BRENDAN NAVARRO at [facility] OR ??? Knee scope, remv loose body 12/16/2010 ARTHROSCOPY KNEE REMOVE LOOSE BODY performed by JENNIFER ZHANG at [facility] OR ??? Knee scope, abrasn arthroplasty 12/16/2010 ARTHROSCOPY KNEE, MULTIPLE DRILLING, MICROFRACTURE performed by JENNIFER ZHANG at [facility] OR ??? Apply long leg cast 12/16/2010 CAST APPLICATION, LONG LEG (THIGH TO TOES) performed by JENNIFER ZHANG at [facility] OR ??? Knee scope, part synovect 04/05/2011 ARTHROSCOPY KNEE SYNOVECTOMY LIMITED performed by JENNIFER ZHANG at [facility] OR ??? Drain/inject large joint/bursa 04/05/2011 ARTHROCENTESIS, ASPIRATION OR INJECTION, MAJOR JOINT OR BURSA, KNEE performed by JENNIFER ZHANG at [facility] OR ??? Knee scope, remv loose body 02/13/2012 ARTHROSCOPY KNEE REMOVE LOOSE BODY performed by JENNIFER ZHANG at [facility] OR ??? Arthrotomy/explore/treat knee joint 02/13/2012 ARTHROTOMY, KNEE WITH EXPLORATION performed by JENNIFER ZHANG at [facility] OR ??? Revision of unstable patella 02/13/2012 REPAIR DISLOCATING PATELLA performed by JENNIFER ZHANG at [facility] OR ??? Knee scope, abrasn arthroplasty 02/13/2012 ARTHROSCOPY KNEE, MULTIPLE DRILLING, MICROFRACTURE performed by JENNIFER ZHANG at [facility] OR ??? Osteotomy tibia Right 02/10/2014 OSTEOTOMY, TIBIA performed by Jennifer Zhang MD at [facility] OR ??? Knee scope, remv loose body Right 02/10/2014 ARTHROSCOPY KNEE REMOVE LOOSE BODY performed by Jennifer Zhang MD at [facility] OR ??? Revision of unstable patella Right 02/10/2014 REPAIR DISLOCATING PATELLA performed by Jennifer Zhang MD at [facility] OR Social History: Patient lives with [...] person, place, and time Musculoskeletal: ROM: Impaired. [place] knee brace donned and locked at 0. [...] TDWB on L LE with leg in [place] brace locked at 0 deg extension. Mildly [...] 0 minutes Katey Barbosa PT 09/08/2014 Pager: [phone] Physical Therapy Rehabilitation Department * Op Note [...] planned surgery, and site according to the [facility] [place] Protocol. The left leg was prepped and [...] Operative Note Patient Name: Samreen Martinez : [id number] MR#: [id number] Case Date: 09/08/2014 Surgeon: Surgeon(s) and Role: [...] Narayanan, YOLY) 0219 (Given - Provider: Pam Narayanan RN)0805 (Given - Provider: Maya Andrews RN) ceFAZolin [...] available) 0130 (Given - Provider: Pam Narayanan, YOLY)0949 (Given - Provider: Maya Andrews, RN) docusate [...] Routine documented in this encounter Care Teams Grocery Store Manager Relationship Specialty Start Date End Date Virginia Cramer MD [address] [place] [address] PCP - General 04/27/10 07/16/15 documented as of this encounter
--- OUTSIDE RECORDS SUMMARY | 2024-05-05 10:45 | XMS_ITS | Encounter Summary ---
Author Organization [facility] Address [facility] [place] [address] Care Team Providers Care Design Center Consultant Name Role Phone Michelet Cramer MD Primary Care Provider [phone] Encounter Details Date Type Department Care Team (Late st Contact Info) Description 07/21/2014 Orders [place] [address] Benito Zhang MD [facility] [place] [address] Social History Tobacco Use Types Packs/Day Years [...] is a Non-reportable exam Benito Zhang MD [facility] ORD ERABLES documented in this encounter Visit Diagnoses Not on filedocumented in this encounter Care Teams Design Center Consultant Relationship Specialty Start Date End Date Michelet Cramer MD [address] [place] [address] PCP - General 04/27/10 07/16/15 documented as of this encounter
--- OUTSIDE RECORDS SUMMARY | 2024-05-05 10:45 | XMS_ITS | Encounter Summary ---
Author Organization [facility] [place] [address] Care Team Providers Care Sheet Catcher Name Role Phone Michelet Cramer MD Primary Care Provider [phone] Encounter Details Date Type Department Care Team (Late st Contact Info) Description 12/30/2013 Orders Only [facility] [place] [address] Chichi Meredith, RN Knee pain, right (Primary [...] leg documented in this encounter Care Teams Sheet Catcher Relationship Specialty Start Date End Date Michelet Cramer MD [address] [place] [address] PCP - General 04/27/10 07/16/15 documented as of this encounter
--- OUTSIDE RECORDS SUMMARY | 2024-05-05 10:45 | XMS_ITS | Encounter Summary ---
Author Organization [facility] Address [facility] [place] [address] Care Team Providers Care Cryptologist Name Role Phone Michelet Cramer MD Primary Care Provider [phone] Reason for Visit * Reason Onset Date Comments Physical Therapy 12/31/2013 Encounter Details Date Type Department Care Team (Late st Contact Info) Description 12/31/2013 [place] [phone] Benito Zhang MD [facility] DR ORTHOPAEDIC [place] [address] Physical Therapy Social History Tobacco Use Types [...] EDT Received a call from Dagmar at [email or web address]. They would like instruction on what Samreen can be doing for exercise prior to her surgery on 02/10/14. , ext 3 documented in this encounter Plan of Treatment Not on file documented as of this encounter Visit Diagnoses Not on filedocumented in this encounter Care Teams Cryptologist Relationship Specialty Start Date End Date Michelet Cramer MD [address] [place] [address] PCP - General 04/27/10 07/16/15 documented as of this encounter
--- OUTSIDE RECORDS SUMMARY | 2024-05-05 10:45 | XMS_ITS | Encounter Summary ---
Author Organization [facility] Address [facility] [place] [address] Care Team Providers Care [employer] Executive Director Name Role Phone Michelet Cramer MD Primary Care Provider [phone] Reason for Visit * Reason Onset Date Comments Knee Injury 08/07/2012 right Encounter Details Date Type Department Care Team (Late st Contact Info) Description 08/07/2012 Telephone [place] [address] Chichi Meredith RN Knee Injury (right) Social [...] 2:50 PM EDT Mother took Samreen to business office technician who put Samreen into full knee immobilizer with crutches. Mom reports that business office technician feels that this is a sprain. Mother [...] on filedocumented in this encounter Care Teams [employer] Executive Director Relationship Specialty Start Date End Date Michelet Cramer MD [address] [facility] [address] PCP - General 04/27/10 07/16/15 documented as of this encounter
--- OUTSIDE RECORDS SUMMARY | 2024-05-05 10:45 | XMS_ITS | Encounter Summary ---
Author Organization [facility] Address [facility] [place] [address] Care Team Providers Care Closet Organizer Name Role Phone Michelet Cramer MD Primary Care Provider [phone] Reason for Visit * Reason Comments Follow-up R Knee Scope 2 Encounter Details Date Type Department Care Team (Latest Contact Info) Description 12/20/2013 11:05 AM EDT Office [place] [phone] Benito Zhang MD [facility] [address] [place] [address] Traumatic patellofemoral subluxation, right, sequela Discharge Disposition: [...] would like to proceed. They were given Shout card, and will call when they are ready to schedule. documented in this encounter Plan of Treatment Not on file documented as of this encounter Visit Diagnoses Diagnosis Traumatic patellofemoral subluxation, right, sequela documented in this encounter Care Teams Closet Organizer Relationship Specialty Start Date End Date Michelet Cramer MD [address] [facility] [place] [address] PCP - General 04/27/10 07/16/15 documented as of this encounter
--- OUTSIDE RECORDS SUMMARY | 2024-05-05 10:45 | XMS_ITS | Encounter Summary ---
Author Organization [facility] Address [facility] [place] [address] Care Team Providers Care Sausage Stuffer Name Role Phone Michelet Cramer MD Primary Care Provider [phone] Reason for Visit * Reason Comments Right Knee Pain knee pain Encounter Details Date Type Department Care Team (Late st Contact Info) Description 02/06/2014 8:30 AM EST Office [place] [address] Benito Zhang MD [facility] [place] [address] Internal derangement of knee joint, right (Primary [...] 02/06/2014 8:5 7 AM EST Growth Chart: [facility] (Girls, 2- 20 Years) documented in this [...] Primary documented in this encounter Care Teams Sausage Stuffer Relationship Specialty Start Date End Date Michelet Cramer MD [address] [place] [address] PCP - General 04/27/10 07/16/15 documented as of this encounter
--- OUTSIDE RECORDS SUMMARY | 2024-05-05 10:45 | XMS_ITS | Encounter Summary ---
Author Organization Count Includes [facility] Address [facility] [place] [address] Care Team Providers Care Real Estate Legal Assistant Name Role Phone Michelet Cramer MD Primary Care Provider [phone] Reason for Visit * Reason Onset Date Comments Questions 03/03/2014 Encounter Details Date Type Department Care Team (Late st Contact Info) Description 03/03/2014 Telephone [place] [phone] Benito Zhang MD [facility] DR [place] [address] Questions Social History Tobacco Use Types Packs/Day [...] AM EST Mom called today to say samara is having Left knee pain ? Loose [...] in this encounter Care Teams Real Estate Legal Assistant Relationship Specialty Start Date End Date Michelet Cramer MD [address] [place] [address] PCP - General 04/27/10 07/16/15 documented as of this encounter
--- OUTSIDE RECORDS SUMMARY | 2024-05-05 10:45 | XMS_ITS | Encounter Summary ---
Author Organization [facility] Address [facility] [place] [address] Care Team Providers Care Patient Svcs Mgr Name Role Phone Michelet Cramer MD Primary Care Provider [phone] Reason for Visit * Reason Onset Date Comments Follow Up Surgery 05/16/2014 Encounter Details Date Type Department Care Team (Late st Contact Info) Description 05/16/2014 Tele[place] [phone] Benito Zhang MD [facility] [place] [address] Follow Up Surgery Social History Tobacco Use [...] on filedocumented in this encounter Care Teams Patient Svcs Mgr Relationship Specialty Start Date End Date Michelet Cramer MD [address] [place] [address] PCP - General 04/27/10 07/16/15 documented as of this encounter
--- OUTSIDE RECORDS SUMMARY | 2024-05-05 10:45 | XMS_ITS | Encounter Summary ---
Author Organization [facility] Address [facility] [place] [address] Care Team Providers Care Gas Systems Worker Name Role Phone Michelet Cramer MD Primary Care Provider [phone] Reason for Visit * Reason Onset Date Comments Knee Pain 06/23/2014 Encounter Details Date Type Department Care Team (Late st Contact Info) Description 06/23/2014 [place] [phone] Benito Zhang MD [facility] [address] [place] [address] Knee Pain Social History Tobacco Use Types [...] with: Knee Pain Objective/Assessment Phone call to Julys mother to discuss LEFT knee pain. Mother [...] on filedocumented in this encounter Care Teams Gas Systems Worker Relationship Specialty Start Date End Date Michelet Cramer MD [address] [place] [address] PCP - General 04/27/10 07/16/15 documented as of this encounter
--- OUTSIDE RECORDS SUMMARY | 2024-05-05 10:45 | XMS_ITS | Encounter Summary ---
Author Organization [facility] Address [facility] [place] [address] Care Team Providers Care Case Assistant Name Role Phone Michelet Cramer MD Primary Care Provider [phone] Encounter Details Date Type Department Care Team (Late st Contact Info) Description 03/03/2014 Orders [place] [address] Benito Zhang MD [facility] [place] [address] Patellofemoral disorder of right knee; Right knee [...] surgery/osteotomy subcutaneous and intra-articular gas has resolved. Tbnyn-ng-cqscdvsv joint effusion present. Alignment anatomic. No sign of osteochondral injury.. Procedure Note Linwood Michaels MD / YOSELIN, UNSIGNED REPORT - 04/03/2014 EXAMINATION: KNEE BILATERAL 1 OR 2 VIEWS/BILAT CLINICAL HISTORY: R KNEE S/P SCOPE 02/10/14/ L KNEE PAIN ? LOOSE BODY TECHNIQUE: 4 views right knee COMPARISON: 02/10/2014 FINDINGS: Patient is status post tibial tubercle surgery/osteotomysubcutaneous and intra-articular gas has resolved. Cgmdr-gi-zaxjiors joint effusionpresent. Alignment anatomic. No sign of [...] leg documented in this encounter Care Teams Case Assistant Relationship Specialty Start Date End Date Michelet Cramer MD [address] [place] [address] PCP - General 04/27/10 07/16/15 documented as of this encounter
--- OUTSIDE RECORDS SUMMARY | 2024-05-05 10:45 | XMS_ITS | Encounter Summary ---
Author Organization Formerly [facility] Address [facility] [place] [address] Care Team Providers Care Pre Press Proofer Name Role Phone Michelet Cramer MD Primary Care Provider [phone] Encounter Details Date Type Department Care Team (Latest Contact Info) Description 03/06/2014 1:58 PM EST - 03/06/2014 11:59 PM EST Hospital Encounter XRay [place] [address] [place] [address] Right knee pain Social History Tobacco Use [...] surgery/osteotomy subcutaneous and intra-articular gas has resolved. Rygfr-tb-fzsfdums joint effusion present. Alignment anatomic. No sign of osteochondral injury.. Procedure Note Linwood Michaels MD / YOSELIN, UNSIGNED REPORT - 04/03/2014 EXAMINATION: KNEE BILATERAL 1 OR 2 VIEWS/BILAT CLINICAL HISTORY: R KNEE S/P SCOPE 02/10// L KNEE PAIN ? LOOSE BODY TECHNIQUE: 4 views right knee COMPARISON: 02/10/2014 FINDINGS: Patient is status post tibial tubercle surgery/osteotomysubcutaneous and intra-articular gas has resolved. Aqvyz-zx-hjkymjou joint effusionpresent. Alignment anatomic. No sign of osteochondral injury.. IMPRESSION IMPRESSION: Status post tibial tubercle osteotomy. 2 Indwelling screws. Decrease in prepatellar soft tissue swelling and resolution of intra-articular gas.Small to moderate joint effusion present. Benito Zhang MD IMG DX ORDERABLES documented in this encounter Visit Diagnoses Diagnosis Right knee pain Pain in joint, lower leg documented in this encounter Care Teams Pre Press Proofer Relationship Specialty Start Date End Date Michelet Cramer MD [address] [place] [address] PCP - General 04/27/10 07/16/15 documented as of this encounter
--- OUTSIDE RECORDS SUMMARY | 2024-05-05 10:45 | XMS_ITS | Encounter Summary ---
Author Organization [facility] Address [facility] [place] [address] Care Team Providers Care Yard Associate Name Role Phone Michelet Cramer MD Primary Care Provider [phone] Reason for Visit * Reason Onset Date Comments Questions 08/08/2014 Encounter Details Date Type Department Care Team (Late st Contact Info) Description 08/08/2014 Telephone [place] [phone] Benito Zhang MD [facility] [address] [place] [address] Questions Social History Tobacco Use Types Packs/Day [...] the next steps after MRI> before 2:30PM [phone] work number> After 2:30PM call [phone] her cell. She is awaiting a call [...] on filedocumented in this encounter Care Teams Yard Associate Relationship Specialty Start Date End Date Michelet Cramer MD [address] [place] [address] PCP - General 04/27/10 07/16/15 documented as of this encounter
--- OUTSIDE RECORDS SUMMARY | 2024-05-05 10:45 | XMS_ITS | Encounter Summary ---
Author Organization [facility] Address [facility] [place] [address] Care Team Providers Care Crisis Manager Name Role Phone Virginia Cramer MD Primary Care Provider Encounter Details Date Type Department Care Team (Latest Contact Info) Description 02/10/2014 11:27 AM EST - 02/11/2014 2:58 PM EST Hospital Encounter [place] [phone] Jennifer Dick MD [facility] [place] [address] Knee pain, right Discharge Disposition: Home Social [...] 02/10/2014 4:4 5 PM EST Growth Chart: [facility] (Girls, 2- 20 Years) documented in [...] to facilitate a bowel movement. Miralax, an jiua-qkd-ycrzvmi medication can also be taken to help [...] your follow up appointment. Call your doctor (#[phone]) if you develop: 1. fevers greater than 100.5 2. severe nausea or vomiting 3. increasing pain not controlled by pain medications 4. increasing redness or drainage from incisions 5. Change in sensation FOLLOWUP APPOINTMENTS: 1. You will have followup appointments at [facility] as indicated in Future Appointment and Orders. [...] (AVS) and given to the patient or footwear sales representative. 6) If VNA was ordered, [...] 9:48 AM EST Office of Care Management(OCM)/Clinical Fudger(CRC) Initial Assessment CRC Service:Pediatrics and PICU CRCs: Marivel Vieira RN,BSN pager [phone] and Odalis Patiño pager [phone] Reviewed chart, nursing admission information, and discussed patient during rounds with the Pediatric team to assess continuing care and discharge needs O: Reviewed chart. Introduced self to parents/ caregiver and reviewed CRC role. Admitted with: Right leg tibial osteotomy and knee arthroscopy Home/community services prior to admission: None in chart. PCP: VIRGINIA CRAMER MD [phone] Insurance: [place] [employer] Family supports: [...] Care Management Covering for: Marivel Vieira Pager: [phone]. * Cisco Rene - 02/11/2014 6:22 AM [...] control, dispo ?? Activity: TDWB RLE with Bypro knee brace locked in extension at all times2 ?? Antibiotics: Cefazolin x 3 doses post-operatively ?? Antiicoagulation: Mechanical, Ibuprofen ?? Drains: None ?? Dressing/Spints: Keep in place until follow-up ?? Sierra: None. Voiding spontaneously ?? Dispo: Home when clears PT and pain controlled ?? Follow up:[address] Dick . CISCO RENE MD Orthopaedic Surgery Resident Pager #[phone] 02/11/2014 * Hema Parker - 02/10/2014 5:14 [...] Inpatient Provider Contact Information: Dr. Dick Trauma: [phone] After hours and weekends, call [facility] Commercial Pilot, , and have Orthopedic resident paged. Discharge [...] %*) * Growth percentiles are based on [facility] 2-20 Years data. Height: Ht Readings from Last 1 Encounters: 02/10/14 157.5 cm (5' 2.01) (37.31 %*) * Growth percentiles are based on [facility] 2-20 Years data. HC: HC Readings from Last 1 Encounters: No data found for HC BMI: Body mass index is 37.85 kg/(m^2). Last value Range last 24 hrs Temperature Temp: 36.5 ??C (97.7 ??F) Temp: [36.5 ??C (97.7 ??F)-37 ??C (98.6 ??F)] Heart Rate Heart Rate: 76 Heart Rate: [73-120] Blood Pressure BP: 112/53 mmHg @vemgdsz83@ Respiratory Rate Resp: 20 Resp: [16-22] SpO2 SpO2: 98 % @ozxuwnqn54@ Art BP BP (Arterial Line): -- Functional [...] to facilitate a bowel movement. Miralax, an svyz-lfp-bsazzuw medication can also be taken to help [...] your follow up appointment. Call your doctor (#[phone]) if you develop: 1. fevers greater than 100.5 2. severe nausea or vomiting 3. increasing pain not controlled by pain medications 4. increasing redness or drainage from incisions 5. Change in sensation FOLLOWUP APPOINTMENTS: 1. You will have followup appointments at [facility] as indicated in Future Appointment and Orders. Youwill have an xray prior to those appointments so please come to Radiology, desk 3T, 1 hour BEFORE your appointment for those x-rays. Future Appointments Date Time Provider Department Center 02/20/2014 7:40 AM Jennifer Dick MD [facility] None Future Appointments and Orders Future Appointments Provider Department Dept Phone 02/20/2014 7:40 AM Jennifer Dick MD Orthopaedics [phone] Joint Appt Ortho, Questionnaire [facility]opa[facility] [phone] Future Orders Complete By Expires *XR generic [...] sponsor?: Primary Care Provider: VIRGINIA CRAMER MD [phone] Discharge References/Attachments None * Initial Assessments - [...] KNEE, DIAGNOSTIC performed by BRENDAN NAVARRO at [facility] OR ??? Apply long leg cast 08/31/2010 CAST APPLICATION, LONG LEG (THIGH TO TOES) performed by BRENDAN NAVARRO at [facility] OR ??? Knee scope, shave articular cart 08/31/2010 ARTHROSCOPY KNEE CHONDROPLASTY performed by BRENDAN NAVARRO at [facility] OR ??? Knee scope, drill oste diss+int fix 08/31/2010 ARTHROSCOPY KNEE, DRILLING & FIXATION OF OCD performed by BRENDAN NAVARRO at [facility] OR ??? Fix unstable patella, exten realign 12/16/2010 PATELLAR REALIGNMENT performed by BRENDAN NAVARRO at [facility] OR ??? Knee scope, remv loose body 12/16/2010 ARTHROSCOPY KNEE REMOVE LOOSE BODY performed by JENNIFER DICK at [facility] OR ??? Knee scope, abrasn arthroplasty 12/16/2010 ARTHROSCOPY KNEE, MULTIPLE DRILLING, MICROFRACTURE performed by JENNIFER DICK at [facility] OR ??? Apply long leg cast 12/16/2010 CAST APPLICATION, LONG LEG (THIGH TO TOES) performed by JENNIFER DICK at [facility] OR ??? Knee scope, part synovect 04/05/2011 ARTHROSCOPY KNEE SYNOVECTOMY LIMITED performed by JENNIFER DICK at [facility] OR ??? Drain/inject large joint/bursa 04/05/2011 ARTHROCENTESIS, ASPIRATION OR INJECTION, MAJOR JOINT OR BURSA, KNEE performed by JENNIFER DICK at [facility] OR ??? Knee scope, remv loose body 02/13/2012 ARTHROSCOPY KNEE REMOVE LOOSE BODY performed by JENNIFER DICK at [facility] OR ??? Arthrotomy/explore/treat knee joint 02/13/2012 ARTHROTOMY, KNEE WITH EXPLORATION performed by JENNIFER DICK at [facility] OR ??? Revision of unstable patella 02/13/2012 REPAIR DISLOCATING PATELLA performed by JENNIFER DICK at [facility] OR ??? Knee scope, abrasn arthroplasty 02/13/2012 ARTHROSCOPY KNEE, MULTIPLE DRILLING, MICROFRACTURE performed by JENNIFER DICK at [facility] OR ??? Osteotomy tibia Right 02/10/2014 OSTEOTOMY, TIBIA performed by Jennifer Dick MD at [facility] OR ??? Knee scope, remv loose body Right 02/10/2014 ARTHROSCOPY KNEE REMOVE LOOSE BODY performed by Jennifer Dick MD at [facility] OR ??? Revision of unstable patella Right 02/10/2014 REPAIR DISLOCATING PATELLA performed by Jennifer Dick MD at [facility] OR Social History: lives with father and strep mother in [place] [facility], attends [employer] Elevator at school Will ride bus to/from school so will need to do a few steps One level homes both parents Up on crutches in past, familiar with use Precautions/Special Considerations: TDWB RLE , knee locked in extension in Bypro brace Subjective: ???I get light headed with the Tordol?? Objective: Pt seen for evaluation & functional mobility Pain: 5/10 prior to pain medication (tordol), better upon return to room Vital Signs:room air, comfortable Sat down in chair for rest following stairs due to light headedness, resolved after 1 min rest Mental Status:oriented, alert, appropriate Musculoskeletal: ROM: RLE in locked extension Bypro brace Strength: WFL throughout, not tested RLE [...] R LE knee locked in ext in Miryam brace Total time spent with patient: 35 minutes Total timed interventions: 10 Minutes TEF LILIANA RIDLEY, PT 02/11/2014 Pager: [phone] Physical Therapy Rehabilitation Department * Plan of [...] Pain/Comfort Assessments Pain Management Interventions multimodal measures utilized;qovcxb-zdi-pmqcr dosing utilized;awakened for pain meds per patient [...] Dick MD - 02/10/2014 4:16 PM EST [facility] Operative Note Patient Name: Samreen Martinez : [id number] MR#: [id number] Case Date: 02/10/2014 Surgeon: Surgeon(s) and Role: [...] right thigh. A time-out was performed per [facility] time-out policy. An arthroscopy was first performed [...] using the 0 Vicryl stitches in a jwsrn-isvi-kuuz type technique. This was done and noted [...] The knee was then placed into a Bypro knee brace in full extension, locked. At the end of the case, all counts were correct. No tourniquet was used. Dr. dick was the attending physician who was present for all major portions of this case. * Brief Op Note - Jennifer Dick MD - 02/10/2014 2:46 PM EST Brief Operative Note Patient Name: Samreen Martinez : [id number] MR#: [id number] Case Date: 02/10/2014 Surgeon: Surgeon(s) and Role: [...] Implant Name Type Inv. Item Serial No. Master Baker Lot No. LRB No. Used Action SCREW,CRTX,STAP,4.5X42MM ([id number]) - [id number] IMPLANTS 48719 SYNTHES - [id number] Right 1 Implanted SCREW,CRTX,STAP,4.5X48MM ([id number]) - [id number] IMPLANTS [id number] SYNTHES - [id number] Right 1 Implanted PLAN: TDWB IN MIRYAM [...] s/p Alaina osteotomy, medial imbrication, lateral release (02/10/14)- Primary [...] Quinteros RN) 0410 (Given - Provider: Lesly Quinteros RN)1304 (Given - Provider: Pam Alexander - [...] YOLY)2300 (Rate/Dose Verify - Provider: Lesly Quinteros, YOLY) 0410 (Rate/Dose Change - Provider: Lesly Quinteros, [...] Recovery 1613 (Given - Provider: Kasie Sharp, RN) ondansetron (ZOFRAN) injection 4 mg (CANCELED)(Linked Group 1) 4 mg (0.0426 mg/kg/dose), Intravenous, EVERY 8 HOURS PRN, Starting on Mon02/10/14 at 1953, Until Mon02/11/14 at 1658, Nausea 2000 (Given - Provider: Heather Bradley, OYLY) oxyCODONE (ROXICODONE) immediate release tablet 5-15 mg 5-15 mg (0.0532-0.1597 mg/kg/dose), Oral, EVERY 4 HOURS PRN, Starting on Mon02/10/14 at 1557, Until Mon02/11/14 at 1658, Pain, Routine 1607 (Given - Provider: Kasie Sharp, RN) 0024 (Given - Provider: Lesly Quinteros, [...] Nausea documented in this encounter Care Teams Crisis Manager Relationship Specialty Start Date End Date Virginia Cramer MD [address] [place] [address] PCP - General 04/27/10 07/16/15 documented as of this encounter
--- OUTSIDE RECORDS SUMMARY | 2024-05-05 10:45 | XMS_ITS | Encounter Summary ---
Author Organization [facility] Address [facility] [place] [address] Care Team Providers Care Automotive Service Manager Name Role Phone Michelet Cramer MD Primary Care Provider [phone] Encounter Details Date Type Department Care Team (Latest Contact Info) Description 04/10/2014 1:05 PM EST - 04/10/2014 11:59 PM EST Hospital Encounter XRay at [address] [place] [address] Traumatic patellofemoral subluxation, right, sequela Social History [...] sequela documented in this encounter Care Teams Automotive Service Manager Relationship Specialty Start Date End Date Michelet Cramer MD [address] [place] [address] PCP - General 04/27/10 07/16/15 documented as of this encounter
--- OUTSIDE RECORDS SUMMARY | 2024-05-05 10:45 | XMS_ITS | Encounter Summary ---
Author Organization [facility] Address [facility] [place] [address] Care Team Providers Care Land Resource Specialist Name Role Phone Michelet Cramer MD Primary Care Provider [phone] Reason for Referral * Physical Therapy (Routine) - Complete - Patient Will Schedule External Appt Specialty Diagnoses / Procedures Referred By Jack sherman Referred To Contact Physical Therapy Diagnoses Traumatic patellofemoral subluxation Frankie Arvizu, ZOILA [address] [place] [address] Referral ID Status Reason Start Date Expiration Date Visits Requested Visits Authorized [id number] Complete - Patient Will Schedule External Appt Evaluate and Treat 02/23/2012 08/21/2012 20 20 Reason for Visit * Reason Comments Follow Up Surgery S/P RIGHT KNEE SCOPE DOS 02/13/12 Encounter Details Date Type Department Care Team (Latest Contact Info) Description 02/23/2012 9:30 AM EST Office [place] [address] Benito Zhang MD [facility] [place] [address] R knee arthroscopy, microfracture & medial patellar [...] 98.82% 02/22 10:02 AM EST Growth Chart: [facility] (Girls, 2- 20 Years) documented in this encounter Progress Notes * Frankie Arvizu PA - 02/23/2012 10:21 AM EST PATIENT NAME: Samreen Martinez AGE: 11 y.o. MR#: [id number] DATE OF VISIT: 02/23/2012 Case Date: 02/13/2012 [...] patella documented in this encounter Care Teams Land Resource Specialist Relationship Specialty Start Date End Date Michelet Cramer MD [address] [place] [address] PCP - General 04/27/10 07/16/15 documented as of this encounter
--- OUTSIDE RECORDS SUMMARY | 2024-05-05 10:45 | XMS_ITS | Encounter Summary ---
Author Organization [facility] Address [facility] [place] [address] Care Team Providers Care Paper Folder Name Role Phone Michelet Cramer MD Primary Care Provider [phone] Reason for Visit * Reason Onset Date Comments Results 12/03/2013 Encounter Details Date Type Department Care Team (Late st Contact Info) Description 12/03/2013 Telephone [place] [phone] Benito Zhang MD [facility] [place] [address] Results Social History Tobacco Use Types Packs/Day [...] Please call her back at work at [phone]. * Telephone Encounter - Samantha Rausch RN - 12/03/2013 10:59 AM EDT Forwarded message to Dr. Zhang. * Telephone Encounter - Amalia Gordon - 12/03/2013 8:07 AM EDT Samreen's mother called this morning, she would like a call back from Dr. Zhang with the MRI results of Samreen.Work number [phone] cell [phone] documented in this encounter Plan of Treatment Not on file documented as of this encounter Visit Diagnoses Not on filedocumented in this encounter Care Teams Paper Folder Relationship Specialty Start Date End Date Michelet Cramer MD [address] [place] [address] PCP - General 04/27/10 07/16/15 documented as of this encounter
--- OUTSIDE RECORDS SUMMARY | 2024-05-05 10:45 | XMS_ITS | Encounter Summary ---
Author Organization [facility] Address [facility] [place] [address] Care Team Providers Care Momd Teacher Name Role Phone Michelet Cramer MD Primary Care Provider [phone] Reason for Referral * Physical Therapy (Routine) - Closed Specialty Diagnoses / Procedures Referred By Contac t Referred To Contact Physical Therapy Diagnoses Traumatic patellofemoral subluxation, right, sequela Frankie Arvizu PA [address] [place] [address] Referral ID Status Reason Start Date Expiration Date V isits Requested Visits Authorized [id number] Closed Evaluate and Treat 03/06/2014 09/02/2014 8 8 Reason for Visit * Reason Comments Follow Up Surgery right knee shira s 02/10/14 Encounter Details Date Type Department Care Team (Late st Contact Info) Description 03/06/2014 2:40 PM EST Office [place] [address] Benito Zhang MD [facility] [place] [address] Frankie Arvizu PA [address] [place] [address] Traumatic patellofemoral subluxation, right, sequela Discharge Disposition: [...] NAME: Samreen Martinez AGE: 13 y.o. MR#: [id number] DATE OF VISIT: 03/06/2014 Case Date: 02/10/2014 [...] reevaluation and likely transition out of her Waldron brace and advancement of her activities. documented [...] sequela documented in this encounter Care Teams Momd Teacher Relationship Specialty Start Date End Date Michelet Cramer MD [address] [place] [address] PCP - General 04/27/10 07/16/15 documented as of this encounter
--- OUTSIDE RECORDS SUMMARY | 2024-05-05 10:45 | XMS_ITS | Encounter Summary ---
Author Organization [facility] Address [facility] [place] [address] Care Team Providers Care International Coordinator Name Role Phone Michelet Cramer MD Primary Care Provider Reason for Visit * Reason Onset Date Comments Results 11/29/2013 Encounter Details Date Type Department Care Team (Late st Contact Info) Description 11/29/2013 Telephone [place] [phone] Benito Zhang MD [facility] [place] [address] Results Social History Tobacco Use Types Packs/Day [...] done 11/28/13. If before 2PM please call [phone] ask for Winsome Muller if after 2PM call cell # [phone]. documented in this encounter Plan of Treatment Not on file documented as of this encounter Visit Diagnoses Not on filedocumented in this encounter Care Teams International Coordinator Relationship Specialty Start Date End Date Michelet Cramer MD [address] [place] [address] PCP - General 04/27/10 07/16/15 documented as of this encounter
--- OUTSIDE RECORDS SUMMARY | 2024-05-05 10:45 | XMS_ITS | Encounter Summary ---
Author Organization [facility] Address [facility] [place] [address] Care Team Providers Care Process Control Engineer Name Role Phone Michelet Cramer MD Primary Care Provider [phone] Encounter Details Date Type Department Care Team (Late st Contact Info) Description 09/08/2014 7:41 AM EDT Anesthesia Event [place] [phone] Kailyn Castle MD [facility] [place] [address] Kevin Jordan MD [facility] [place] [address] Anesthesia Record Procedure Summary Procedure Name Responsible [...] Start 0841 Break/Relief In Amara Courtney on, CAR DELIVERER 0856 Break/Relief Out 1008 Extubation/LMA Out Pt [...] cleanup utility RA#[id number]) 09/08/14 0000 by Halina Gardenr RN 11/15/21 1715 by Jenna Anders (RETIRED) Peripheral IV Line - Single Lumen 09/08/14; 0750; 09/09/14; 1103 09/08/14 0750 by Annalise Garcia, CAR DELIVERER 09/09/14 1103 by Maya Hickey RN Supraglottic [...] technique:single-shot Needle Length: 10 cm Needle Type: [id number]-[id number] Medication injection made incrementally with aspirations. Nerve infiltration solution through a needle Ropivicaine 0.5% 30 mL Resident: MD FALGUNI Fellow: Attending Physician: MD COCO ~~~~~~~~~~~~~~~~~~~~~~~~~~~~~~~~~~~~~~~~~~~~~~~~~~~~~~~~~~~~ * Anesthesia Preprocedure Evaluation - Kailyn Castle MD - 09/08/2014 6:54 AM EDT Pre-Anesthesia Evaluation for: Samreen M Therriault a 14 y.o. female. Procedure(s): OSTEOTOMY, TIBIA [...] KNEE, DIAGNOSTIC performed by BRENDAN NAVARRO at [facility] OR ??? Apply long leg cast 08/31/2010 CAST APPLICATION, LONG LEG (THIGH TO TOES) performed by BRENDAN NAVARRO at [facility] OR ??? Knee scope, shave articular cart 08/31/2010 ARTHROSCOPY KNEE CHONDROPLASTY performed by BRENDAN NAVARRO at [facility] OR ??? Knee scope, drill oste diss+int fix 08/31/2010 ARTHROSCOPY KNEE, DRILLING & FIXATION OF OCD performed by BRENDAN NAVARRO at [facility] OR ??? Fix unstable patella, exten realign 12/16/2010 PATELLAR REALIGNMENT performed by BRENDAN NAVARRO at [facility] OR ??? Knee scope, remv loose body 12/16/2010 ARTHROSCOPY KNEE REMOVE LOOSE BODY performed by JENNIFER ZHANG at [facility] OR ??? Knee scope, abrasn arthroplasty 12/16/2010 ARTHROSCOPY KNEE, MULTIPLE DRILLING, MICROFRACTURE performed by JENNIFER ZHANG at [facility] OR ??? Apply long leg cast 12/16/2010 CAST APPLICATION, LONG LEG (THIGH TO TOES) performed by JENNIFER ZHANG at [facility] OR ??? Knee scope, part synovect 04/05/2011 ARTHROSCOPY KNEE SYNOVECTOMY LIMITED performed by JENNIFER ZHANG at [facility] OR ??? Drain/inject large joint/bursa 04/05/2011 ARTHROCENTESIS, ASPIRATION OR INJECTION, MAJOR JOINT OR BURSA, KNEE performed by JENNIFER ZHANG at [facility] OR ??? Knee scope, remv loose body 02/13/2012 ARTHROSCOPY KNEE REMOVE LOOSE BODY performed by JENNIFER ZHANG at [facility] OR ??? Arthrotomy/explore/treat knee joint 02/13/2012 ARTHROTOMY, KNEE WITH EXPLORATION performed by JENNIFER ZHANG at [facility] OR ??? Revision of unstable patella 02/13/2012 REPAIR DISLOCATING PATELLA performed by JENNIFER ZHANG at [facility] OR ??? Knee scope, abrasn arthroplasty 02/13/2012 ARTHROSCOPY KNEE, MULTIPLE DRILLING, MICROFRACTURE performed by JENNIFER ZHANG at [facility] OR ??? Osteotomy tibia Right 02/10/2014 OSTEOTOMY, TIBIA performed by Jennifer Zhang MD at [facility] OR ??? Knee scope, remv loose body Right 02/10/2014 ARTHROSCOPY KNEE REMOVE LOOSE BODY performed by Jennifer Zhang MD at [facility] OR ??? Revision of unstable patella Right 02/10/2014 REPAIR DISLOCATING PATELLA performed by Jennifer Zhang MD at [facility] OR History Substance Use Topics ??? Smoking [...] patient, father and mother. Plan discussed with CAR DELIVERER. [facility] Assessment: documented in this encounter Plan of [...] technique:single-shot Needle Length: 10 cm Needle Type: Z-[id number]-hpaks Medication injection made incrementally with aspirations. Nerve infiltration solution through a needle Ropivicaine 0.5% 30 mL Resident: MD FALGUNI Fellow: Attending Physician: MD COCO ~~~~~~~~~~~~~~~~~~~~~~~~~~~~~~~~~~~~~~~~~~~~~~~~~~~~~~~~~~~~ Jennifer Zhang MD [employer]SEM[employer] [facility] documented in this encounter Visit Diagnoses [...] mL/hr documented in this encounter Care Teams Process Control Engineer Relationship Specialty Start Date End Date Michelet Cramer MD [address] [place] [address] PCP - General 04/27/10 07/16/15 documented as of this encounter
--- OUTSIDE RECORDS SUMMARY | 2024-05-05 10:45 | XMS_ITS | Encounter Summary ---
Author Organization [facility] Address [facility] [address] [address] Care Team Providers Care Bottom Liner Name Role Phone Michelet Cramer MD Primary Care Provider [phone] Encounter Details Date Type Department Care Team (Latest Contact Info) Description 11/22/2013 8:03 AM EDT - 11/22/2013 11:59 PM EDT Hospital Encounter XRay at [address] [place] [address] Right knee pain Social History Tobacco Use [...] leg documented in this encounter Care Teams Bottom Liner Relationship Specialty Start Date End Date Michelet Cramer MD [address] [place] [address] PCP - General 04/27/10 07/16/15 documented as of this encounter
--- OUTSIDE RECORDS SUMMARY | 2024-05-05 10:45 | XMS_ITS | Encounter Summary ---
Author Organization [facility] Address [facility] [place] [address] Care Team Providers Care Autocad Operator Name Role Phone Michelet Cramer MD Primary Care Provider [phone] Reason for Referral * Physical Therapy (Routine) - Complete - Patient Will Schedule External Appt Specialty Diagnoses / Procedures Referred By Jack sherman Referred To Contact Physical Therapy Diagnoses Traumatic patellofemoral subluxation Frankie Arvizu PA [address] [place] [address] Referral ID Status Reason Start Date Expiration Date Visits Requested Visits Authorized [id number] Complete - Patient Will Schedule External Appt Evaluate and Treat 05/03/2012 10/30/2012 20 20 Reason for Visit * Reason Comments Right Knee Pain Follup to Surgery Left Knee Pain Encounter Details Date Type Department Care Team (Latest Contact Info) Description 05/03/2012 12:25 PM EST Office [place] [address] Benito Zhang MD [facility] [place] [address] R knee arthroscopy, microfracture & medial patellar [...] 05/03/2012 12: 50 PM EST Growth Chart: [facility] (Girls, 2- 20 Years) documented in this encounter Progress Notes * Frankie Arvizu PA - 05/03/2012 12:50 PM EST PATIENT NAME: Samreen Martinez AGE: 11 y.o. MR#: [id number] DATE OF VISIT: 05/03/2012 Case Date: 02/13/2012 [...] microfracture & medial patellar realignment procedure 02/12 Zhang- Primary Closed dislocation of patella documented in this encounter Care Teams Autocad Operator Relationship Specialty Start Date End Date Michelet Cramer MD [address] [place] [address] PCP - General 04/27/10 07/16/15 documented as of this encounter
--- OUTSIDE RECORDS SUMMARY | 2024-05-05 10:45 | XMS_ITS | Encounter Summary ---
Author Organization [facility] Address [facility] [place] [address] Care Team Providers Care Patient Experience Coordinator Name Role Phone Michelet Cramer MD Primary Care Provider [phone] Reason for Visit * Reason Comments Follow-up right knee scope - D OS 02/13/12 Encounter Details Date Type Department Care Team (Late st Contact Info) Description 11/22/2013 8:00 AM EDT Office Visit [place] [phone] Benito Zhang MD [facility] [place] [address] Knee pain, right (Primary Dx) Discharge Disposition: [...] 11/22/2013 8:3 9 AM EDT Growth Chart: [facility] (Girls, 2- 20 Years) documented in this [...] consistent with loose bodies. Benito Zhang MD [facility] MRI ORDERABLES documented in this encounter Visit Diagnoses Diagnosis Knee pain, right- Primary Pain in joint, lower leg Knee pain, right Pain in joint, lower leg documented in this encounter Care Teams Patient Experience Coordinator Relationship Specialty Start Date End Date Michelet Cramer MD [address] [place] [address] PCP - General 04/27/10 07/16/15 documented as of this encounter
--- OUTSIDE RECORDS SUMMARY | 2024-05-05 10:45 | XMS_ITS | Encounter Summary ---
Author Organization [facility] Address [facility] [place] [address] Care Team Providers Care Campus Police Officer Name Role Phone Michelet Cramer MD Primary Care Provider [phone] Encounter Details Date Type Department Care Team (Late st Contact Info) Description 01/24/2014 Telephone [place] [address] Benito Zhang MD [facility] [place] [address] Social History Tobacco Use Types Packs/Day Years [...] on filedocumented in this encounter Care Teams Campus Police Officer Relationship Specialty Start Date End Date Michelet Cramer MD [address] [place] [address] PCP - General 04/27/10 07/16/15 documented as of this encounter
--- OUTSIDE RECORDS SUMMARY | 2024-05-05 10:45 | XMS_ITS | Encounter Summary ---
Author Organization [facility] Address [facility] [place] [address] Care Team Providers Care Photographic Printer Name Role Phone Michelet Cramer MD Primary Care Provider [phone] Encounter Details Date Type Department Care Team (Late st Contact Info) Description 10/17/2013 Orders [place] [address] Benito Zhang MD [facility] DR [place] [address] Right knee pain (Primary Dx) Social History [...] leg documented in this encounter Care Teams Photographic Printer Relationship Specialty Start Date End Date Michelet Cramer MD [address] [place] [address] PCP - General 04/27/10 07/16/15 documented as of this encounter
--- OUTSIDE RECORDS SUMMARY | 2024-05-05 10:45 | XMS_ITS | Encounter Summary ---
Author Organization [facility] Address [facility] [place] [address] Care Team Providers Care Photographer News Name Role Phone Michelet Cramer MD Primary Care Provider [phone] Reason for Visit * Reason Onset Date Comments Physical Therapy 05/22/2014 Encounter Details Date Type Department Care Team (Late st Contact Info) Description 05/22/2014 Telephone [place] [phone] Benito Zhang MD [facility] [place] [address] Physical Therapy Social History Tobacco Use Types [...] her returning to that activity. I called [facility] and the last 2-3 session notes are going to be faxed to our office. After review of notes, I will request advice from Dr. Zhang on how he would like to proceed. * Telephone Encounter - Heather Jeffers - 05/22/2014 12:01 PM EST Who is calling: patient/physical therapist Mother Winsome Where do they have their PT? [facility] Phone# Fax # What they need:Patients PT is releasing her , they are stating [facility], But mother states her and Dr Zhang had a different discussion. Please call [phone] PhoneAndPhone cell documented in this encounter Plan of Treatment Not on file documented as of this encounter Visit Diagnoses Not on filedocumented in this encounter Care Teams Photographer News Relationship Specialty Start Date End Date Michelet Cramer MD [address] [place] [address] PCP - General 04/27/10 07/16/15 documented as of this encounter
--- OUTSIDE RECORDS SUMMARY | 2024-05-05 10:46 | XMS_ITS | Encounter Summary ---
Author Organization [facility] Address [facility] [address] Care Team Providers Care Psychological Anthropologist Name Role Phone Michelet Cramer MD Primary Care Provider [phone] Reason for Visit * Reason Comments Bilateral Knee Pain Encounter Details Date Type Department Care Team (Late st Contact Info) Description 01/12/2012 8:00 AM EDT Office [place] [address] Benito Zhang MD [facility] [address] [place] [address] Knee pain, right (Primary Dx) Discharge Disposition: [...] Miscellaneous Notes * Miscellaneous - Jose Alejandro, Deli Manager - 02/15/2012 2:52 PM EST documented in this encounter Plan of Treatment Not on file documented as of this encounter Procedures Procedure Name Priority Date/Time Associated Diagnosis Comments ARTHROSCOPY KNEE REMOVE LOOSE BODY Routine 01/12/2012 9:04 AM EDT Knee pain, right documented in this encounter Visit Diagnoses Diagnosis Knee pain, right- Primary Pain in joint, lower leg documented in this encounter Care Teams Psychological Anthropologist Relationship Specialty Start Date End Date Michelet Cramer MD [address] [place] [address] PCP - General 04/27/10 07/16/15 documented as of this encounter
--- OUTSIDE RECORDS SUMMARY | 2024-05-05 10:46 | XMS_ITS | Encounter Summary ---
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
--- OUTSIDE RECORDS SUMMARY | 2024-05-05 10:46 | XMS_ITS | Encounter Summary ---
Author Organization [facility] Address [facility] [place] [address] Care Team Providers Care Loss Prevention Research Engineer Name Role Phone Michelet Cramer MD Primary Care Provider [phone] Reason for Visit * Reason Onset Date Comments Knee Pain 01/25/2011 Encounter Details Date Type Department Care Team (Late st Contact Info) Description 01/25/2011 [place] [phone] Haider Smith MD [facility] [address] [place] [address] Knee Pain Social History Tobacco Use Types [...] recommend xrays at local ED or at [facility] if pain persists. WBAT. Advised patient's mother to call [facility]o office tomorrow in order to set up follow-up appointment. Mother in agreement with this plan. documented in this encounter Plan of Treatment Not on file documented as of this encounter Visit Diagnoses Not on filedocumented in this encounter Care Teams Loss Prevention Research Engineer Relationship Specialty Start Date End Date Michelet Cramer MD [address] [facility] [address] PCP - General 04/27/10 07/16/15 documented as of this encounter
--- OUTSIDE RECORDS SUMMARY | 2024-05-05 10:46 | XMS_ITS | Encounter Summary ---
Author Organization [facility] Address [facility] [place] [address] Care Team Providers Care Graphic Design Intern Name Role Phone Michelet Cramer MD Primary Care Provider [phone] Encounter Details Date Type Department Care Team (Latest Contact Info) Description 11/30/2010 10:35 AM EDT - 11/30/2010 12:55 PM EDT Hospital Encounter XRay at [address] [place] [address] Effusion of knee joint, left Social History [...] joint documented in this encounter Care Teams Graphic Design Intern Relationship Specialty Start Date End Date Michelet Cramer MD [address] [place] [address] PCP - General 04/27/10 07/16/15 documented as of this encounter
--- OUTSIDE RECORDS SUMMARY | 2024-05-05 10:46 | XMS_ITS | Encounter Summary ---
Author Organization [facility] Address [facility] [place] [address] Care Team Providers Care Wind Turbine Design Engineer Name Role Phone Micheelt Cramer MD Primary Care Provider [phone] Encounter Details Date Type Department Care Team (Latest Contact Info) Description 11/30/2010 12:56 PM EDT - 11/30/2010 11:59 PM EDT [place] [phone] Effusion of knee joint, left; Effusion of [...] joint documented in this encounter Care Teams Wind Turbine Design Engineer Relationship Specialty Start Date End Date Michelet Cramer MD [address] [place] [address] PCP - General 04/27/10 07/16/15 documented as of this encounter
--- OUTSIDE RECORDS SUMMARY | 2024-05-05 10:46 | XMS_ITS | Encounter Summary ---
Author Organization [facility] Address [facility] [place] [address] Care Team Providers Care Hims Manager Name Role Phone Michelet Cramer MD Primary Care Provider [phone] Encounter Details Date Type Department Care Team (Latest Contact Info) Description 08/04/2011 2:55 PM EDT Office Visit [facility] [place] [address] MD Chondromalacia patellae (Primary Dx); Osteochondrosis dessicans; Positive [...] would benefit from a referral to a peoplesoft hcm developer in [facility]. 7. Please keep Pediatric Rheumatology informed of any further studies that might suggest AIDAN. 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
--- OUTSIDE RECORDS SUMMARY | 2024-05-05 10:46 | XMS_ITS | Encounter Summary ---
Author Organization [facility] Address [facility] [place] [address] Care Team Providers Care Photonic Laboratory Technician Name Role Phone Michelet Cramer MD Primary Care Provider [phone] Encounter Details Date Type Department Care Team (Latest Contact Info) Description 01/12/2012 7:25 AM EDT - 01/12/2012 11:59 PM EDT Hospital Encounter XRay at [address] [place] [address] Right knee pain Social History Tobacco Use [...] leg documented in this encounter Care Teams Photonic Laboratory Technician Relationship Specialty Start Date End Date Michelet Cramer MD [address] [place] [address] PCP - General 04/27/10 07/16/15 documented as of this encounter
--- OUTSIDE RECORDS SUMMARY | 2024-05-05 10:46 | XMS_ITS | Encounter Summary ---
Author Organization [facility] Address [facility] [place] [address] Care Team Providers Care Drapery Examiner Name Role Phone Michelet Cramer MD Primary Care Provider [phone] Encounter Details Date Type Department Care Team (Late st Contact Info) Description 03/09/2011 Orders [place] [address] Benito Zhang MD [facility] [place] [address] Knee pain (Primary Dx) Social History Tobacco [...] leg documented in this encounter Care Teams Drapery Examiner Relationship Specialty Start Date End Date Michelet Cramer MD [address] [place] [address] PCP - General 04/27/10 07/16/15 documented as of this encounter
--- OUTSIDE RECORDS SUMMARY | 2024-05-05 10:46 | XMS_ITS | Encounter Summary ---
Author Organization [facility] Address [facility] [place] [address] Care Team Providers Care Painter Barrel Name Role Phone Michelet Cramer MD Primary Care Provider [phone] Reason for Visit * Reason Comments Left Knee Pain Right Knee Pain Encounter Details Date Type Department Care Team (Latest Contact Info) Description 08/04/2011 2:25 PM EDT Office [place] [phone] Benito Zhang MD [facility] [place] [address] Traumatic patellofemoral subluxation (Primary Dx) Discharge Disposition: [...] 08/04/2011 2:5 9 PM EDT Growth Chart: [facility] (Girls, [...] 12/16/2010. She underwent further arthroscopic evaluation done nc on 03/31/11. She has been doing fairly [...] patella documented in this encounter Care Teams Painter Barrel Relationship Specialty Start Date End Date Michelet Cramer MD [address] [place] [address] PCP - General 04/27/10 07/16/15 documented as of this encounter
--- OUTSIDE RECORDS SUMMARY | 2024-05-05 10:46 | XMS_ITS | Encounter Summary ---
Author Organization [facility] Address [facility] [place] [address] Care Team Providers Care Black Top Raker Name Role Phone Michelet Cramer MD Primary Care Provider [phone] Encounter Details Date Type Department Care Team (Late st Contact Info) Description 11/30/2010 Orders [place] [address] Cole Brown MD [facility] [place] [address] Effusion of knee joint, left (Primary Dx); [...] joint documented in this encounter Care Teams Black Top Raker Relationship Specialty Start Date End Date Michelet Cramer MD [address] [facility] [place] [address] PCP - General 04/27/10 07/16/15 documented as of this encounter
--- OUTSIDE RECORDS SUMMARY | 2024-05-05 10:46 | XMS_ITS | Encounter Summary ---
Author Organization Formerly [facility] Address [facility] [place] [address] Care Team Providers Care Logging Shovel Operator Name Role Phone Virginia Cramer MD Primary Care Provider [phone] Encounter Details Date Type Department Care Team (Latest Contact Info) Description 02/13/2012 11:49 AM EST - 02/14/2012 1:39 PM EST Hospital Encounter [place] [id number] Jennifer Zhang MD [facility] [place] [address] Knee pain, right Discharge Disposition: Home Social [...] 02/13/2012 5:3 0 PM EST Growth Chart: [facility] (Girls, 2- 20 Years) documented [...] sennakot, to factilitate a bowel movement. An tdwn-sko-ryulcuh medication, miralax can also beused if needed [...] 1. You will have followup appointments at [facility] as indicated in Future Appointments and Orders. [...] PM EST OFFICE OF CARE MANAGEMENT(OCM), Clinical Fashion Intern(CRC) O:Chart reviewed and no issues noted on [...] services anticipated @ this time. CRC pager [phone] * Mariola Anderson MD - 02/14/2012 1:00 [...] had previous knee surgeries, and showed this tech writer her scars. Pt has been engaging in their room, and has familiar support present. CCLS to continue to support pt and family during hospitalization Malena Limon Med. CCLS, CREPING MACHINE OPERATOR Pager [phone] * Lane Vo - 02/14/2012 5:54 AM [...] MD, MS, PGYIV Orthopaedic Surgery Resident Pager [phone] Future Appointments Date Time Provider Department Center 02/23/2012 9:30 AM 1135-JENNIFER ZHANG [facility] None * Rekha Cantrell [...] the unit and to their room. * GildaLane Camilo - 02/13/2012 5:04 PM EST ORTHOPAEDIC PROGRESS [...] MD, MS, PGYIV Orthopaedic Surgery Resident Pager [phone] Future Appointments Date Time Provider Department Center [...] them both as mom. ELIF Orosco Certified Telecommunications Analyst Pager [phone] documented in this encounter H&P Notes * [...] KNEE, DIAGNOSTIC performed by BRENDAN NAVARRO at [facility] OR ??? Apply long leg cast 08/31/2010 CAST APPLICATION, LONG LEG (THIGH TO TOES) performed by BRENDAN NAVARRO at [facility] OR ??? Knee scope, shave articular cart 08/31/2010 ARTHROSCOPY KNEE CHONDROPLASTY performed by BRENDAN NAVARRO at [facility] OR ??? Knee scope, drill oste diss+int fix 08/31/2010 ARTHROSCOPY KNEE, DRILLING & FIXATION OF OCD performed by BRENDAN NAVARRO at [facility] OR ??? Fix unstable patella, exten realign 12/16/2010 PATELLAR REALIGNMENT performed by BRENDAN NAVARRO at [facility] OR ??? Knee scope, remv loose body 12/16/2010 ARTHROSCOPY KNEE REMOVE LOOSE BODY performed by JENNIFER ZHANG at [facility] OR ??? Knee scope, abrasn arthroplasty 12/16/2010 ARTHROSCOPY KNEE, MULTIPLE DRILLING, MICROFRACTURE performed by JENNIFER ZHANG at [facility] OR ??? Apply long leg cast 12/16/2010 CAST APPLICATION, LONG LEG (THIGH TO TOES) performed by JENNIFER ZHANG at [facility] OR ??? Knee scope, part synovect 04/05/2011 ARTHROSCOPY KNEE SYNOVECTOMY LIMITED performed by JENINFER ZHANG at [facility] OR ??? Drain/inject large joint/bursa 04/05/2011 ARTHROCENTESIS, ASPIRATION OR INJECTION, MAJOR JOINT OR BURSA, KNEE performed by JENNIFER ZHANG at [facility] OR ??? Knee scope, remv loose body 02/13/2012 ARTHROSCOPY KNEE REMOVE LOOSE BODY performed by JENNIFER ZHANG at [facility] OR ??? Arthrotomy/explore/treat knee joint 02/13/2012 ARTHROTOMY, KNEE WITH EXPLORATION performed by JENNIFER ZHANG at [facility] OR ??? Revision of unstable patella 02/13/2012 REPAIR DISLOCATING PATELLA performed by JENNIFER ZHANG at [facility] OR ??? 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 [...] oriented to person, place, and time Communication: [facility] Vision & Perception: [place] Range of motion, strength, coordination: Hand dominance: [...] and step mother present. 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 Apply long leg cast 08/31/2010 CAST APPLICATION, LONG LEG (THIGH TO TOES) performed by BRENDAN NAVARRO at [facility] OR ??? Knee scope, shave articular cart 08/31/2010 ARTHROSCOPY KNEE CHONDROPLASTY performed by BRENDAN NAVARRO at [facility] OR ??? Knee scope, drill oste diss+int fix 08/31/2010 ARTHROSCOPY KNEE, DRILLING & FIXATION OF OCD performed by BRENDAN NAVARRO at [facility] OR ??? Fix unstable patella, exten realign 12/16/2010 PATELLAR REALIGNMENT performed by BRENDAN NAVARRO at [facility] OR ??? Knee scope, remv loose body 12/16/2010 ARTHROSCOPY KNEE REMOVE LOOSE BODY performed by JENNIFER ZHANG at [facility] OR ??? Knee scope, abrasn arthroplasty 12/16/2010 ARTHROSCOPY KNEE, MULTIPLE DRILLING, MICROFRACTURE performed by JENNIFER ZHANG at [facility] OR ??? Apply long leg cast 12/16/2010 CAST APPLICATION, LONG LEG (THIGH TO TOES) performed by JENNIFER ZHANG at [facility] OR ??? Knee scope, part synovect 04/05/2011 ARTHROSCOPY KNEE SYNOVECTOMY LIMITED performed by JENNIFER ZHANG at [facility] OR ??? Drain/inject large joint/bursa 04/05/2011 ARTHROCENTESIS, ASPIRATION OR INJECTION, MAJOR JOINT OR BURSA, KNEE performed by JENNIFER ZHANG at [facility] OR ??? Knee scope, remv loose body 02/13/2012 ARTHROSCOPY KNEE REMOVE LOOSE BODY performed by JENNIFER ZHANG at [facility] OR ??? Arthrotomy/explore/treat knee joint 02/13/2012 ARTHROTOMY, KNEE WITH EXPLORATION performed by JENNIFER ZHANG at [facility] OR ??? Revision of unstable patella 02/13/2012 REPAIR DISLOCATING PATELLA performed by JENNIFER ZHANG at [facility] OR ??? Knee scope, abrasn arthroplasty 02/13/2012 ARTHROSCOPY KNEE, MULTIPLE DRILLING, MICROFRACTURE performed by JENNIFER ZHANG at [facility] OR Social History:Mother and Step [...] 0 minutes LILIANA RIDLEY, PT 02/14/2012 Pager: [phone] Physical Therapy Rehabilitation Department * Discharge Summary [...] sennakot, to factilitate a bowel movement. An alth-jmx-loivedy medication, miralax can also beused if needed [...] 1. You will have followup appointments at [facility] as indicated in Future Appointments and Orders. [...] AM Jennifer Zhang MD [facility] [phone] None Joint Appt Health Question Three C Orth[facility] [phone] None Provider Contact Information: Primary Care Provider: VIRGINIA CRAMER MD [phone] Hospital Attending: Jennifer Zhang MD Department of Orthopaedic Surgery Sports: [phone] Signed: DILLAN MARTINEZ MD 02/14/2012 * OR Attestation - Jennifer Zhang MD - 02/13/2012 2:50 PM EST Attestation: Case Date: 02/13/2012 I was present and I participated during the entire procedure (does not need to include opening and closing). JENNIFER ZHANG MD 02/13/2012 * Op Note - Jennifer Zhang MD - 02/13/2012 2:38 PM EST [facility] Operative Note Patient Name: Samreen Martinez : [id number] MR#: [id number] Case Date: 02/13/2012 Surgeon: Surgeon(s) and Role: [...] Minutes, Indication for (Active or Suspected): Prophylaxis 181 (Given - Provider: Rekha Cantrell, YOLY) 0200 (Given - Provider: Sheryl Agosto, YOLY)0930 (Given - Provider: Yamile Anderson) docusate sodium (COLACE) 10 mg/mL pedi oral liquid 100 mg (CANCELED) 100 mg (1.44 mg/kg/dose), Oral, DAILY, First dose on Mon02/13/12 at 1800, Until Discontinued, Routine 181 (Given - Provider: Rekha Cantrell RN) 0900 [...] Routine documented in this encounter Care Teams Logging Shovel Operator Relationship Specialty Start Date End Date Virginia Cramer MD [address] [place] [address] PCP - General 04/27/10 07/16/15 documented as of this encounter
--- OUTSIDE RECORDS SUMMARY | 2024-05-05 10:46 | XMS_ITS | Encounter Summary ---
Author Organization [facility] [place] [address] Care Team Providers Care Map Maker Name Role Phone Michelet Cramer MD Primary Care Provider [phone] Reason for Visit * Reason Comments Left Knee Pain DOS 9.29.11 L knee Encounter Details Date Type Department Care Team (Late st Contact Info) Description 01/26/2011 1:00 PM EST Follow-Up Orthopaedics at [facility] [place] [phone] CLINIC, [address] [place] Discharge Disposition: [...] Patient Instructions * Patient Instructions* Isaiah Gudino, COATER SLATE - 01/26/2011 12:58 PM EST Welcome to [employer], your secure online access to your electronic medical record at [facility]. Using [employer] you will be able to send messages to your providers, view your test results, renew prescriptions, schedule appointments, and much more. Follow these instructions to enter your personal [employer] account for the first time: 1. Start your internet browser. Go to [email or web address] and click on the [employer] link. 2. Click SIGN UP NOW to go to the NEW MEMBER SIGN UP page. 3. Enter your [employer] Access Code exactly as it appears below. [...] or your Access Code, please call for [place], for Guys or for [place]. If you need technical support, please e-mail . Remember, [facility] is NOT for urgent needs! Always dial 911 for medical emergencies. documented in this encounter Plan of Treatment Not on file documented as of this encounter Visit Diagnoses Not on filedocumented in this encounter Care Teams Map Maker Relationship Specialty Start Date End Date Michelet Cramer MD [address] [place], [place] [address] [address] PCP - General 04/27/10 07/16/15 documented as of this encounter
--- OUTSIDE RECORDS SUMMARY | 2024-05-05 10:46 | XMS_ITS | Encounter Summary ---
Author Organization [facility] Address [facility] [place] [address] Care Team Providers Care Nutritionist Public Health Name Role Phone Michelet Cramer MD Primary Care Provider [phone] Reason for Visit * Reason Comments Left Knee Pain scope-post op Encounter Details Date Type Department Care Team (Late st Contact Info) Description 11/30/2010 10:40 AM EDT Office [place] [address] Cole Brown MD [facility] [place] [address] OCD (osteochondritis dissecans) of knee (Primary Dx) [...] Miscellaneous Notes * Miscellaneous - Jose Alejandro, Veneer Slicing Machine Operator - 12/21/2010 11:50 AM EDT documented in this encounter Plan of Treatment Not on file documented as of this encounter Visit Diagnoses Diagnosis 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
--- OUTSIDE RECORDS SUMMARY | 2024-05-05 10:46 | XMS_ITS | Encounter Summary ---
Author Organization [facility] Address [facility] [place] [address] Care Team Providers Care Communications Associate Name Role Phone Michelet Cramer MD Primary Care Provider [phone] Reason for Visit * Reason Onset Date Comments Physical Therapy 03/18/2011 Encounter Details Date Type Department Care Team (Late st Contact Info) Description 03/18/2011 Telephone [place] [phone] Elizabeth Hernandez RN Physical Therapy Social History [...] on filedocumented in this encounter Care Teams Communications Associate Relationship Specialty Start Date End Date Michelet Cramer MD [address] [place] [address] [place], [place] [id number] PCP - General 04/27/10 07/16/15 documented as of this encounter
--- OUTSIDE RECORDS SUMMARY | 2024-05-05 10:46 | XMS_ITS | Encounter Summary ---
Author Organization [facility] [place] [address] Care Team Providers Care Drapery Examiner Name Role Phone Michelet Cramer MD Primary Care Provider [phone] Reason for Visit * Reason Comments Follow-up left knee pain and s welling Encounter Details Date Type Department Care Team (Late st Contact Info) Description 09/01/2010 11:30 AM EDT Office Visit [facility] [address] [place] [id number] MD Pain in joint of left knee (Primary [...] 98.96% 09/01 11:21 AM EDT Growth Chart: CDC (Girls, 2- [...] rest of the summer with dad in [place]. Mom feels dad would keep us informed [...] findings documented in this encounter Care Teams Drapery Examiner Relationship Specialty Start Date End Date Michelet Cramer MD [address] [facility] [place] [address] PCP - General 04/27/10 07/16/15 documented as of this encounter
--- OUTSIDE RECORDS SUMMARY | 2024-05-05 10:46 | XMS_ITS | Encounter Summary ---
Author Organization [facility] Address [facility] [place] [address] Care Team Providers Care Land Measurer Name Role Phone Michelet Cramer MD Primary Care Provider Reason for Visit * Reason Comments Cast Repair Encounter Details Date Type Department Care Team (Late st Contact Info) Description 12/22/2010 9:00 AM EDT Office [place] [phone] CLINIC, [address] [place] Cast discomfort [...] aftercare documented in this encounter Care Teams Land Measurer Relationship Specialty Start Date End Date Michelet Cramer MD [address] [place] [address] PCP - General 04/27/10 07/16/15 documented as of this encounter
--- OUTSIDE RECORDS SUMMARY | 2024-05-05 10:46 | XMS_ITS | Encounter Summary ---
Author Organization [facility] [place] [address] Care Team Providers Care Beef Skinner Name Role Phone Michelet Cramer MD Primary Care Provider [phone] Encounter Details Date Type Department Care Team (Late st Contact Info) Description 04/08/2011 Notes Only Orthopaedics at [facility] [place] [address] Addie Bee, RN Social History Tobacco Use [...] on filedocumented in this encounter Care Teams Beef Skinner Relationship Specialty Start Date End Date Michelet Cramer MD [address] [place] [address] PCP - General 04/27/10 07/16/15 documented as of this encounter
--- OUTSIDE RECORDS SUMMARY | 2024-05-05 10:46 | XMS_ITS | Encounter Summary ---
Author Organization [facility] Address [facility] [place] [address] Care Team Providers Care Vise Hand Name Role Phone Michelet Cramer MD Primary Care Provider [phone] Reason for Referral * Physical Therapy (Routine) - Complete - Patient Will Schedule External Appt Specialty Diagnoses / Procedures Referred By Jack sherman Referred To Contact Physical Therapy Diagnoses Effusion of knee joint Cole Brown MD [facility] [place] [address] Referral ID Status Reason Start Date Expiration Date Visits Requested Visits Authorized [id number] Complete - Patient Will Schedule External Appt Evaluate and Treat 1 08/30/2011 1 1 Encounter Details Date Type Department Care Team (Late st Contact Info) Description 03/03/2011 Orders [place] [address] Cole Brown MD [facility] [place] [address] Effusion of knee joint (Primary Dx) Social [...] joint documented in this encounter Care Teams Vise Hand Relationship Specialty Start Date End Date Michelet Cramer MD [address] [place] [address] PCP - General 04/27/10 07/16/15 documented as of this encounter
--- OUTSIDE RECORDS SUMMARY | 2024-05-05 10:46 | XMS_ITS | Encounter Summary ---
Author Organization [facility] Address [facility] [place] [address] Care Team Providers Care Gamma Operator Name Role Phone Michelet Cramer MD Primary Care Provider [phone] Encounter Details Date Type Department Care Team (Late st Contact Info) Description 12/26/2011 Orders [place] [address] Benito Zhang MD [facility] [place] [address] Right knee pain (Primary Dx) Social History [...] leg documented in this encounter Care Teams Gamma Operator Relationship Specialty Start Date End Date Michelet Cramer MD [address] [place] [address] [place] [address] PCP - General 04/27/10 07/16/15 documented as of this encounter
--- OUTSIDE RECORDS SUMMARY | 2024-05-05 10:46 | XMS_ITS | Encounter Summary ---
Author Organization [facility] Address [facility] [place] [address] Care Team Providers Care Career Advisor Name Role Phone Michelet Cramer MD Primary Care Provider [phone] Encounter Details Date Type Department Care Team (Late st Contact Info) Description 02/13/2012 1:12 PM EST Anesthesia Event [place] [phone] Chucho Blackman MD [facility] [place] [address] Anesthesia Record Procedure Summary Procedure Name Responsible [...] Length: 5 cm Gauge: 25 Needle Type: [id number] Medication injection made incrementally with aspirations. Nerve [...] KNEE, DIAGNOSTIC performed by BRENDAN NAVARRO at [facility] OR ??? Apply long leg cast 08/31/2010 CAST APPLICATION, LONG LEG (THIGH TO TOES) performed by BRENDAN NAVARRO at [facility] OR ??? Knee scope, shave articular cart 08/31/2010 ARTHROSCOPY KNEE CHONDROPLASTY performed by BRENDAN NAVARRO at [facility] OR ??? Knee scope, drill oste diss+int fix 08/31/2010 ARTHROSCOPY KNEE, DRILLING & FIXATION OF OCD performed by BRENDAN NAVARRO at [facility] OR ??? Fix unstable patella, exten realign 12/16/2010 PATELLAR REALIGNMENT performed by BRENDAN NAVARRO at [facility] OR ??? Knee scope, remv loose body 12/16/2010 ARTHROSCOPY KNEE REMOVE LOOSE BODY performed by JENNIFER GUNTER at [facility] OR ??? Knee scope, abrasn arthroplasty 12/16/2010 ARTHROSCOPY KNEE, MULTIPLE DRILLING, MICROFRACTURE performed by JENNIFER GUNTER at [facility] OR ??? Apply long leg cast 12/16/2010 CAST APPLICATION, LONG LEG (THIGH TO TOES) performed by JENNIFER GUNTER at [facility] OR ??? Knee scope, part synovect 04/05/2011 ARTHROSCOPY KNEE SYNOVECTOMY LIMITED performed by JENNIFER GUNTER at [facility] OR ??? Drain/inject large joint/bursa 04/05/2011 ARTHROCENTESIS, ASPIRATION OR INJECTION, MAJOR JOINT OR BURSA, KNEE performed by JENNIFER GUNTER at [facility] OR History Substance Use Topics ??? Smoking [...] mother and legal guardian. Plan discussed with [place]. [facility]. Assessment: documented in this encounter Plan of Treatment Not on file documented as of this encounter Visit Diagnoses Not on filedocumented in this encounter Care Teams Career Advisor Relationship Specialty Start Date End Date Michelet Cramer MD [address] [place] [address] PCP - General 04/27/10 07/16/15 documented as of this encounter
--- OUTSIDE RECORDS SUMMARY | 2024-05-05 10:46 | XMS_ITS | Encounter Summary ---
Author Organization [facility] Address [facility] [place] [address] Care Team Providers Care Contracts Paralegal Name Role Phone Virginia Cramer MD Primary Care Provider [phone] Encounter Details Date Type Department Care Team (Late st Contact Info) Description 02/13/2012 1:28 PM EST - 02/13/2012 4:56 PM EST Surgery [place] [id number] Jennifer Zhang MD [facility] DR [place] [address] ARTHROSCOPY KNEE REMOVE LOOSE BODY (WRVU 7.19) [...] 02/13/2012 5:3 0 PM EST Growth Chart: [facility] (Girls, 2- 20 Years) documented in this [...] sennakot, to factilitate a bowel movement. An kozj-tcs-dbwfdch medication, miralax can also beused if needed [...] will have followup appointments [place] [facility] as indicated in Future Appointments and Orders. [...] PM EST OFFICE OF CARE MANAGEMENT(OCM), Clinical Gut Sorter(CRC) O:Chart reviewed and no issues noted on [...] services anticipated @ this time. CRC pager [phone] * Mariola Anderson MD - 02/14/2012 1:00 [...] had previous knee surgeries, and showed this adjusto writer operator her scars. Pt has been engaging in their room, and has familiar support present. CCLS to continue to support pt and family during hospitalization Malena Limon Med. CCLS, PERSONAL FINANCIAL COUNSELOR Pager [phone] * Lane Vo - 02/14/2012 5:54 AM [...] MD, MS, PGYIV Orthopaedic Surgery Resident Pager [phone] Future Appointments Date Time Provider Department Center [...] the unit and to their room. * Lane Vo Camilo - 02/13/2012 5:04 PM EST ORTHOPAEDIC PROGRESS NOTE Attending: Dr. Zhang ID: Samreen Miguel Angel Michelle Age: 11 y.o. Surgery: Right knee arthroscopy, [...] MD, MS, PGYIV Orthopaedic Surgery Resident Pager [phone] Future Appointments Date Time Provider Department Center [...] them both as mom. ELIF Orosco Certified Side Show Entertainer Pager [phone] documented in this encounter H&P Notes * Lane Vo - 02/13/2012 12:25 PM EST The patient's [...] KNEE, DIAGNOSTIC performed by BRENDAN NAVARRO at [facility] OR ??? Apply long leg cast 08/31/2010 CAST APPLICATION, LONG LEG (THIGH TO TOES) performed by BRENDAN NAVARRO at [facility] OR ??? Knee scope, shave articular cart 08/31/2010 ARTHROSCOPY KNEE CHONDROPLASTY performed by BRENDAN NAVARRO at [facility] OR ??? Knee scope, drill oste diss+int fix 08/31/2010 ARTHROSCOPY KNEE, DRILLING & FIXATION OF OCD performed by BRENDAN NAVARRO at [facility] OR ??? Fix unstable patella, exten realign 12/16/2010 PATELLAR REALIGNMENT performed by BRENDAN NAVARRO at [facility] OR ??? Knee scope, remv loose body 12/16/2010 ARTHROSCOPY KNEE REMOVE LOOSE BODY performed by JENNIFER ZHANG at [facility] MAIN OR ??? Knee scope, abrasn arthroplasty 12/16/2010 ARTHROSCOPY KNEE, MULTIPLE DRILLING, MICROFRACTURE performed by JENNIFER ZHANG at [facility] MAIN OR ??? Apply long leg cast 12/16/2010 CAST APPLICATION, LONG LEG (THIGH TO TOES) performed by JENNIFER ZHANG at [facility] MAIN OR ??? Knee scope, part synovect 04/05/2011 ARTHROSCOPY KNEE SYNOVECTOMY LIMITED performed by JENNIFER ZHANG at [facility] MAIN OR ??? Drain/inject large joint/bursa 04/05/2011 ARTHROCENTESIS, ASPIRATION OR INJECTION, MAJOR JOINT OR BURSA, KNEE performed by JENNIFER ZHANG at [facility] OR ??? Knee scope, remv loose body 02/13/2012 ARTHROSCOPY KNEE REMOVE LOOSE BODY performed by JENNIFER ZHANG at [facility] OR ??? Arthrotomy/explore/treat knee joint 02/13/2012 ARTHROTOMY, KNEE WITH EXPLORATION performed by JENNIFER ZHANG at [facility] MAIN OR ??? Revision of unstable patella 02/13/2012 REPAIR DISLOCATING PATELLA performed by JENNIFER ZHANG at [facility] MAIN OR ??? 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 [...] oriented to person, place, and time Communication: [facility] Vision & Perception: WFL Range of [...] and step mother present. 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 Apply long leg cast 08/31/2010 CAST APPLICATION, LONG LEG (THIGH TO TOES) performed by BRENDAN NAVARRO at [facility] MAIN OR ??? Knee scope, shave articular cart 08/31/2010 ARTHROSCOPY KNEE CHONDROPLASTY performed by BRENDAN NAVARRO at [facility] OR ??? Knee scope, drill oste diss+int fix 08/31/2010 ARTHROSCOPY KNEE, DRILLING & FIXATION OF OCD performed by BRENDAN NAVARRO at [facility] MAIN OR ??? Fix unstable patella, exten realign 12/16/2010 PATELLAR REALIGNMENT performed by BRENDAN NAVARRO at [facility] MAIN OR ??? Knee scope, remv loose body 12/16/2010 ARTHROSCOPY KNEE REMOVE LOOSE BODY performed by JENNIFER ZHANG at [facility] MAIN OR ??? Knee scope, abrasn arthroplasty 12/16/2010 ARTHROSCOPY KNEE, MULTIPLE DRILLING, MICROFRACTURE performed by JENNIFER ZHANG at [facility] OR ??? Apply long leg cast 12/16/2010 CAST APPLICATION, LONG LEG (THIGH TO TOES) performed by JENNIFER ZHANG at [facility] MAIN OR ??? Knee scope, part synovect 04/05/2011 ARTHROSCOPY KNEE SYNOVECTOMY LIMITED performed by JENNIFER ZHANG at [facility] MAIN OR ??? Drain/inject large joint/bursa 04/05/2011 ARTHROCENTESIS, ASPIRATION OR INJECTION, MAJOR JOINT OR BURSA, KNEE performed by JENNIFER ZHANG at [facility] OR ??? Knee scope, remv loose body 02/13/2012 ARTHROSCOPY KNEE REMOVE LOOSE BODY performed by JENNIFER ZHANG at [facility] OR ??? Arthrotomy/explore/treat knee joint 02/13/2012 ARTHROTOMY, KNEE WITH EXPLORATION performed by JENNIFER ZHANG at [facility] OR ??? Revision of unstable patella 02/13/2012 REPAIR DISLOCATING PATELLA performed by JENNIFER ZHANG at [facility] OR ??? Knee scope, abrasn arthroplasty 02/13/2012 ARTHROSCOPY KNEE, MULTIPLE DRILLING, MICROFRACTURE performed by JENNIFER ZHANG at [facility] OR Social History:Mother and Step Mother [...] 0 minutes LILIANA RIDLEY, PT 02/14/2012 Pager: [phone] Physical Therapy Rehabilitation Department * Discharge Summary [...] sennakot, to factilitate a bowel movement. An juml-quq-ukcstlm medication, miralax can also beused if needed [...] will have followup appointments [place] [facility] as indicated in Future Appointments and Orders. [...] AM Jennifer Zhang MD [facility] [phone] None Joint Appt Health Question Three C Orth[facility] [phone] None Provider Contact Information: Primary Care Provider: VIRGINIA CRAMER MD [phone] Hospital Attending: Jennifer Zhang MD Department of Orthopaedic Surgery Sports: [phone] Signed: DILLAN MARTINEZ MD 02/14/2012 * OR Attestation - Jennifer Zhang MD - 02/13/2012 2:50 PM EST Attestation: Case Date: 02/13/2012 I was present and I participated during the entire procedure (does not need to include opening and closing). JENNIFER ZHANG MD 02/13/2012 * Op Note - Jennifer Zhang MD - 02/13/2012 2:38 PM EST [facility] Operative Note Patient Name: Samreen Martinez : [id number] MR#: [id number] Case Date: 02/13/2012 Surgeon: Surgeon(s) and Role: [...] 02/12 Zhang- Primary Closed dislocation of patella Knee pain, [...] 1519 (New Bag - Provider: Linh Warner, YOLY)2049 (Stopped - Provider: Sheryl Agosto RN) PRN [...] Routine documented in this encounter Care Teams Contracts Paralegal Relationship Specialty Start Date End Date Virginia Cramer MD [address] [place] [address] PCP - General 04/27/10 07/16/15 documented as of this encounter
--- OUTSIDE RECORDS SUMMARY | 2024-05-05 10:46 | XMS_ITS | Encounter Summary ---
Author Organization [facility] Address [facility] [place] [address] Care Team Providers Care Steward/Stewardess Banquet Name Role Phone Michelet Cramer MD Primary Care Provider [phone] Reason for Visit * Reason Comments Follow-up Encounter Details Date Type Department Care Team (Late st Contact Info) Description 11/30/2010 2:30 PM EDT Office Visit [address] [place] [address] MD Discharge Disposition: Home Social History Tobacco Use [...] 11/30/2010 3:2 2 PM EDT Growth Chart: [facility] (Girls, 2- 20 Years) documented in this encounter Plan of Treatment Not on file documented as of this encounter Visit Diagnoses Not on filedocumented in this encounter Care Teams Steward/Stewardess Banquet Relationship Specialty Start Date End Date Michelet Cramer MD [address] [place] [address] PCP - General 04/27/10 07/16/15 documented as of this encounter
--- OUTSIDE RECORDS SUMMARY | 2024-05-05 10:46 | XMS_ITS | Encounter Summary ---
Author Organization [facility] Address [facility] [place] [address] Care Team Providers Care Defensive Driving Instructor Name Role Phone Michelet Cramer MD Primary Care Provider [phone] Reason for Visit * Reason Comments Left Knee Pain Left Knee Scope DOS 04/05/11 Encounter Details Date Type Department Care Team (Late st Contact Info) Description 04/14/2011 10:05 AM EST Office [place] [address] Benito Zhang MD [facility] DR OR[place] [address] Effusion of knee joint (Primary Dx) Discharge [...] 04/14/2011 11: 19 AM EST Growth Chart: [facility] (Girls, 2- 20 Years) documented in [...] joint documented in this encounter Care Teams Defensive Driving Instructor Relationship Specialty Start Date End Date Michelet Cramer MD [address] [place] [address] PCP - General 04/27/10 07/16/15 documented as of this encounter
--- OUTSIDE RECORDS SUMMARY | 2024-05-05 10:46 | XMS_ITS | Encounter Summary ---
Author Organization [facility] Address [facility] [place] [address] Care Team Providers Care Pipe Line Walker Name Role Phone Michelet Cramer MD Primary Care Provider [phone] Reason for Visit * Reason Onset Date Comments Other 02/16/2011 Encounter Details Date Type Department Care Team (Late st Contact Info) Description 02/16/2011 [place] [phone] Elizabeth Hernandez RN Other Social History Tobacco [...] she has further concerns. Mom will have [facility] fax ER report documented in this encounter Plan of Treatment Not on file documented as of this encounter Visit Diagnoses Not on filedocumented in this encounter Care Teams Pipe Line Walker Relationship Specialty Start Date End Date Michelet Crmaer MD [address] [place] [address] PCP - General 04/27/10 07/16/15 documented as of this encounter
--- OUTSIDE RECORDS SUMMARY | 2024-05-05 10:46 | XMS_ITS | Encounter Summary ---
Author Organization [facility] Address [facility] [place] [address] Care Team Providers Care Weatherization Operations Manager Name Role Phone Michelet Cramer MD Primary Care Provider [phone] Encounter Details Date Type Department Care Team (Late st Contact Info) Description 03/03/2011 Telephone Pediatric Rheumatology at [facility] [place] [phone] MD Social History Tobacco Use Types Packs/Day Years [...] on filedocumented in this encounter Care Teams Weatherization Operations Manager Relationship Specialty Start Date End Date Michelet Cramer MD [address] [place] [address] PCP - General 04/27/10 07/16/15 documented as of this encounter
--- OUTSIDE RECORDS SUMMARY | 2024-05-05 10:46 | XMS_ITS | Encounter Summary ---
Author Organization [facility] Address [facility] [place] [address] Care Team Providers Care Health Program Specialist Name Role Phone Virginia Cramer MD Primary Care Provider [phone] Encounter Details Date Type Department Care Team (Latest Contact Info) Description 04/05/2011 12:00 PM EST - 04/05/2011 3:26 PM EST Hospital Encounter [place] [phone] Jennifer Zhang MD [facility] [place] [address] Knee pain Discharge Disposition: Home Social History [...] this encounter Discharge Instructions * Discharge Instructions* KaurErvin sherman RN - 04/05/2011 2:37 PM EST 1. [...] Information: Your orthopaedic surgeon:Jennifer Zhang MD: Sports: [phone] If it is after 5:00PM on a weekday or a weekend and it is of an urgent nature please call [phone] and ask for the on-call orthopaedic resident. Your Primary Care Physician: VIRGINIA CRAMER MD [phone] documented in this encounter Medications at Time [...] Kane Chu - 04/05/2011 3:16 PM EST [facility] Operative Note Department of Orthopaedics Patient Name: [...] in the preoperative holding area and green algaaciq was placed by Dr. Zhang on the left knee. The patient was brought to the operating room by the anesthesia staff. A time-out was held according to [facility] universal protocol. The knee [...] Operative Note Patient Name: Andrea Hagan : [id number] MR#: [id number] Case Date: 04/05/2011 Surgeon: Surgeon(s) and Role: [...] 2:14 PM EST) Surgical Pathology Report ? [facility] ? Provider: ?? JENNIFER ZHANG ?? Pt. Name: ?? ANDREA HAGAN ? Acc #: ?[id number] ?Pt. ? Col Date: ?? 04/05/2011 ? /Sex: ?2000,(10 years),Female ? Rec Date: ?? 04/05/2011 ? LOC: ?[facility] ? SURGICAL PATHOLOGY ? ---Pathologic Diagnosis--- ? Left knee synovium, excision ? Chronic nonspecific villous synovitis with hemosiderin. ? 04/07/11 ? [facility] ? 04/08/11 Verified by: ? Marsha Lord DO. ? Pathologist ? (Electronic Signature) ? The [...] MD PATHOLOGY/CYTOLOGY O DANIELE Performing Organization Address City/State/[facility] Co de Phone Number CERDOUG FREGOSOIUM * Specimen to Pathology (surgical or derm) (04/05/2011 1:48 PM EST) AP Specimen 04/05/2011 1:48 PM EST 04/05/2011 1:48 PM EST Narrative CERNER MILLENNIUM - 04/05/2011 1:48 PM EST Specimen requisition ordered. ??Separate Pathology report to follow Jennifer Zhang MD PATHOLOGY/CYTOLOGY O DANIELE Performing Organization Address City/[facility] Co de Phone Number OSCAR FREGOSOIUM * Cell Count Body Fluid (04/05/2011 [...] RN) documented in this encounter Care Teams Health Program Specialist Relationship Specialty Start Date End Date Virginia Cramer MD [address] [place] [address] PCP - General 04/27/10 07/16/15 documented as of this encounter
--- OUTSIDE RECORDS SUMMARY | 2024-05-05 10:46 | XMS_ITS | Encounter Summary ---
Author Organization [facility] Address [facility] [place] [address] Care Team Providers Care Theater Projectionist Name Role Phone Michelet Cramer MD Primary Care Provider [phone] Encounter Details Date Type Department Care Team (Late st Contact Info) Description 12/31/2010 10:20 AM EDT Office Visit [place] [phone] Cole Brown MD [facility] [place] [address] Discharge Disposition: Home Social History Tobacco Use [...] on filedocumented in this encounter Care Teams Theater Projectionist Relationship Specialty Start Date End Date Michelet Cramer MD [address] [place] [address] PCP - General 04/27/10 07/16/15 documented as of this encounter
--- OUTSIDE RECORDS SUMMARY | 2024-05-05 10:46 | XMS_ITS | Encounter Summary ---
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 She went to [facility] the summer and was not on [...] problem. 6. Consider a referral to a assistant store leader. 7. Recommendations for aerobic exercise from either [...] EST Clare Way MD HEMATOLOGY ORDERAB LES [facility] NeuroVista[facility]PE [facility] * (ABNORMAL) Comprehensive metabolic panel (non-fasting) (03/02/2011 [...] EST Clare Way MD CHEMISTRY ORDERABL ES [facility]ITAL[facility] * CBC (with Diff) (03/02/2011 5:14 PM [...] MILLENNIUM Platelet 281 145 - 370 x10(3)/mcL [facility] RDW Standard Deviation 38.4 35.0 - 46.0 fL [facility] RDW coefficient of variation 13.4 10.9 - 14.4 % [facility] Mean Platelet Volume 10.5 9.0 - 12.0 fL [facility] LEROYENNIUM Blood specimen (specimen) 03/02/2011 5:14 PM EST 03/02/2011 5:[address] MD HEMATOLOGY ORDERAB LES [facility] documented in this encounter Visit Diagnoses Diagnosis Therapeutic drug monitoring- Primary Encounter for therapeutic drug monitoring Swelling of knee joint, left Effusion of lower leg joint Constipation Unspecified constipation Over weight Overweight documented in this encounter Care Teams Parachute Panel Joiner Relationship Specialty Start Date End Date Michelet Cramer MD [address] [facility] [place] [address] PCP - General 04/27/10 07/16/15 documented as of this encounter
--- OUTSIDE RECORDS SUMMARY | 2024-05-05 10:46 | XMS_ITS | Encounter Summary ---
Author Organization [facility] [address] Care Team Providers Care Pig Iron Loader Name Role Phone Michelet Cramer MD Primary Care Provider [phone] Reason for Visit * Reason Comments Follow-up Right knee swelling and pain Encounter Details Date Type Department Care Team (Latest Contact Info) Description 01/20/2011 2:25 PM EDT Office Visit [facility] [address] [place] [phone] MD Patellofemoral syndrome (Primary Dx); Osteochondritis dessicans; Arthritis [...] unspecified documented in this encounter Care Teams Pig Iron Loader Relationship Specialty Start Date End Date Michelet Cramer MD [address] [place] [address] PCP - General 04/27/10 07/16/15 documented as of this encounter
--- OUTSIDE RECORDS SUMMARY | 2024-05-05 10:46 | XMS_ITS | Encounter Summary ---
Author Organization [facility] Address [facility] [place] [address] Care Team Providers Care Set Up Inspector Name Role Phone Virginia Cramer MD Primary Care Provider [phone] Encounter Details Date Type Department Care Team (Late st Contact Info) Description 12/16/2010 12:00 PM EDT - 12/16/2010 3:58 PM EDT Surgery [place] [phone] Brendan Navarro MD [facility] [place] [address] PATELLAR REALIGNMENT ([facility] 10.34) Social History Tobacco Use Types Packs/Day Years [...] Contact Information: Your orthopaedic surgeon:Dr. Kevin MD: [phone] If it is after 5:00PM on a weekday or a weekend and it is of an urgent nature please call [phone] and ask for the on-call orthopaedic resident. [...] 3:40 PM EDT Office of Care Management(OCM)/Clinical Prevention Specialist(CRC)Initial Assessment O: Reviewed chart. Introduced self to [...] to admission:none : VIRGINIA CRAMER MD @PCPADD@ [phone] Insurance:[place] primary Family supports:parents/step parents School/development issues:5th grade [...] KNEE, DIAGNOSTIC performed by BRENDAN NAVARRO at [facility] MAIN OR ??? Apply long leg cast 08/31/2010 CAST APPLICATION, LONG LEG (THIGH TO TOES) performed by BRENDAN NAVARRO at [facility] MAIN OR ??? Knee scope, shave articular cart 08/31/2010 ARTHROSCOPY KNEE CHONDROPLASTY performed by BRENDAN NAVARRO at [facility] OR ??? Knee scope, drill oste diss+int fix 08/31/2010 ARTHROSCOPY KNEE, DRILLING & FIXATION OF OCD performed by BRENDAN NAVARRO at [facility] OR ??? Fix unstable patella, exten realign 12/16/2010 PATELLAR REALIGNMENT performed by BRENDAN NAVARRO at [facility] OR ??? Knee scope, remv loose body 12/16/2010 ARTHROSCOPY KNEE REMOVE LOOSE BODY performed by JENNIFER ZHANG at [facility] OR ??? Knee scope, abrasn arthroplasty 12/16/2010 ARTHROSCOPY KNEE, MULTIPLE DRILLING, MICROFRACTURE performed by JENNIFER ZHANG at [facility] OR ??? Apply long leg cast 12/16/2010 CAST APPLICATION, LONG LEG (THIGH TO TOES) performed by JENNIFER ZHANG at [facility] OR Interval History: There are no hospital problems to display for this patient. Social History: Home Living Type of Home: House Home Layout: Stairs to enter w/ rails (2 railings reportedly close enough to use both at one time) Home Equipment: Crutches Prior Function Level of [place]: Independent with ADLs and functional transfers Lives [...] with increased distance. Pt's mother is a POTATO PICKER. Discussed NWB gait on stairs. Pt's mother did not feel it was necessary to practice stairs before disch 2/2 help at home and pt's experience on stairs. Pt will not need to use stairs when she goes back to school Goals: Safe disch plans Plan: Pt to be disch home with family today. Pager:[phone] SIMI JIN, KATIANA 12/17/2010 Physical Therapy Rehabilitation Department * Bnenett Zhao MD - 12/17/2010 6:46 AM EDT [...] EDT Pt states pain better, Pt given GATE CUTTER and inst on use documented in this [...] Sulfa (Sulfonamide Antibiotics) Social: Lives in [facility] with mom PE: NAD Heart: RRR, No [...] Operative Note Patient Name: Noris Martinez : [id number] MR#: [id number] Case Date: 12/16/2010 Surgeon: Surgeon(s) and Role: [...] all times for balance and protection. The GATE CUTTER was discontinued on POD#1 and the patient [...] Contact Information: Your orthopaedic surgeon:Dr. Kevin MD: [phone] If it is after 5:00PM on a weekday or a weekend and it is of an urgent nature please call [phone] and ask for the on-call orthopaedic resident. General Instructions None Future Appointments and Orders Future Appointments: Provider: Department: Dept Phone: Center: 12/31/2010 1:40 PM Brendan Navarro MD [facility] Orthopa[facility]ics 3a [phone] [facility] Provider Contact Information: Primary Care Provider: VIRGINIA CRAMER MD [phone] Hospital Attending: Brendan Navarro MD Department of Orthopaedic Surgery Pediatrics: [phone] For questions regarding this document or issues relating to this hospitalization on the Medical Service, please contact your inpatient physician through the [facility] Gallery Or Museum Technician . Issues afterhours and on weekends will be handled by the Hospitalist staff on-call. Signed: RYLAN GUAMAN MD 12/17/2010 * Plan of Care - Kika Salinas RN - 12/17/2010 6:10 AM EDT Problem: Pain, Acute (Pediatric) Intervention: Acute Pain: Related Risk Factors (Pediatric) S/O: Pain control adequate with GATE CUTTER Morphine and scheduled tylenol 1-08/27. Stood at [...] Zhao MD - 12/16/2010 4:00 PM EDT [facility] Operative Note Patient Name: Noris Martinez : [id number] MR#: [id number] Case Date: 12/16/2010 Surgeon: Surgeon(s) and Role: [...] is a 10-year-old female who presented to [facility] with left knee pain. She was found [...] was administered. A time-out was performed per [facility] protocol and preoperative antibiotics were administered. First, [...] 2:34 PM EDT) Surgical Pathology Report [id number] ? Location: [place]; [facility]; A The signing pathologist has (i) examined [...] in rendering the final pathologic diagnosis. OSCAR FREGOSOIUM 12/16/2010 2:34 PM EDT Jennifer Zhang MD PATHOLOGY/CYTOLOGY O DANIELE Performing Organization Address [facility] de Phone Number OSCAR HEREDIA * Specimen to Pathology (surgical or derm) (12/16/2010 2:10 PM EDT) AP Specimen 12/16/2010 2:10 PM EDT 12/16/2010 2:10 PM EDT Narrative OSCAR HARPERENNIUM - 12/16/2010 2:10 PM EDT Specimen requisition ordered. ??Separate Pathology report to follow Jennifer Zhang MD PATHOLOGY/CYTOLOGY O DANIELE Performing Organization Address [facility] de Phone Number OSCAR HEREDIA * Specimen to Pathology (surgical or derm) (12/16/2010 2:10 PM EDT) AP Specimen 12/16/2010 2:10 PM EDT 12/16/2010 2:10 PM EDT Narrative OSCAR HARPERENNIUM - 12/16/2010 2:10 PM EDT Specimen requisition ordered. ??Separate Pathology report to follow Jennifer Zhang MD PATHOLOGY/CYTOLOGY O DANIELE Performing Organization Address [facility] de Phone Number OSCAR HEREDIA documented in [...] 80 mL/hr 80 mL/hr morphine 1 mg/mL GATE CUTTER 30 mL Intravenous, GATE CUTTER ONLY, Starting on Emma 12/16/10 at 1730, Until Mon12/17/10 at 0706, LOADING DOSE (0-4 mg): 0, GATE CUTTER DOSE (0.5-1.5 mg): .5, LOCKOUT INTERVAL (5-20 minutes): 6, CONTINUOUS Infusion Rate (for opioid tolerant patients only): 0, FOUR HOUR DOSE LIMIT (5-30 mg): 20 Rate/Dose Verify 12/16/2010 6:47 PM EDT mL/hr Rate/Dose Verify 12/16/2010 6:46 PM EDT mL/hr New Syringe/Cartridge 12/16/2010 5:30 PM EDT mL /hr morphine 2 mg/mL carpuject 0.5 mg 0.5 mg (0.52152 mg/kg/dose), Intravenous, EVERY 10 MIN PRN, Starting [...] Provider: Og Escobedo RN) morphine 1 mg/mL GATE CUTTER 30 mL (CANCELED) Intravenous, GATE CUTTER ONLY, Starting on Emma 12/16/10 at 1730, Until Mon12/17/10 at 0706, LOADING DOSE (0-4 mg): 0, GATE CUTTER DOSE (0.5-1.5 mg): .5, LOCKOUT INTERVAL (5-20 [...] mg/mL carpuject 0.5 mg (CANCELED) 0.5 mg (0.52994 mg/kg/dose), Intravenous, EVERY 10 MIN PRN, Starting on Emma 12/16/10 at 1651, Until Emma 12/16/10 at 1802, Pain, resp rate >8/min, PACU Recovery, Routine 1709 (Given - Provider: Og Escobedo RN)1723 (Given - Provider: Og Escobedo, YOLY) OXYcodone (ROXICODONE) immediate release tablet 5 mg 5 mg (0.1 mg/kg/dose ? 58.2 kg), Oral, EVERY 4 HOURS PRN, Starting on Emma 12/16/10 at 1818, Until Mon12/17/10 at 1600, Pain, Routine 0914 (Given - Provid er: Cherelle Caldwell RN)1315 (Given - Provider: Cherelle C Walker, RN) documented in this encounter Care Teams Set Up Inspector Relationship Specialty Start Date End Date Virginia Cramer MD [address] [place] [address] PCP - General 04/27/10 07/16/15 documented as of this encounter
--- OUTSIDE RECORDS SUMMARY | 2024-05-05 10:46 | XMS_ITS | Encounter Summary ---
[place] [address] Care Team Providers Care Assistant Product Manager Name Role Phone Michelet Cramer MD Primary Care Provider [phone] Reason for Visit * Reason Onset Date Comments Other 01/05/2011 Resume antiinfla mmatory Rx Encounter Details Date Type Department Care Team (Late st Contact Info) Description 01/05/2011 Telephone [place] [address] MD Other (Resume antiinflammatory Rx) Social History Tobacco [...] on filedocumented in this encounter Care Teams Assistant Product Manager Relationship Specialty Start Date End Date Michelet Cramer MD [address] [place] [address] PCP - General 04/27/10 07/16/15 documented as of this encounter
--- OUTSIDE RECORDS SUMMARY | 2024-05-05 10:46 | XMS_ITS | Encounter Summary ---
Author Organization [facility] Address [facility] [place] [address] Care Team Providers Care Case Sealer Name Role Phone Virginia Cramer MD Primary Care Provider [phone] Encounter Details Date Type Department Care Team (Latest Contact Info) Description 12/16/2010 10:57 AM EDT - 12/17/2010 1:55 PM EDT Hospital Encounter [place] [phone] Brendan Navarro MD [facility] [place] [address] Discharge Disposition: Home Social History Tobacco Use [...] Contact Information: Your orthopaedic surgeon:Dr. Kevin MD: [phone] If it is after 5:00PM on a weekday or a weekend and it is of an urgent nature please call [phone] and ask for the on-call orthopaedic resident. [...] 3:40 PM EDT Office of Care Management(OCM)/Clinical Palliative Care Nurse(CRC)Initial Assessment O: Reviewed chart. Introduced self to [...] to admission:none : VIRGINIA CRAMER MD @PCPADD@ [phone] Insurance:[place] primary Family supports:parents/step parents School/development issues:5th grade [...] TO TOES) performed by JENNIFER ZHANG at [facility] OR Interval History: There are no hospital problems to display for this patient. Social History: Home Living Type of Home: House Home Layout: Stairs to enter w/ rails (2 railings reportedly close enough to use both at one time) Home Equipment: Crutches Prior Function Level of [place]: Independent with ADLs and functional transfers Lives [...] with increased distance. Pt's mother is a ATOMIC PHYSICS TEACHER. Discussed NWB gait on stairs. Pt's mother did not feel it was necessary to practice stairs before disch 2/2 help at home and pt's experience on stairs. Pt will not need to use stairs when she goes back to school Goals: Safe disch plans Plan: Pt to be disch home with family today. Pager:[phone] SIMI JIN, PT 12/17/2010 Physical Therapy Rehabilitation [...] EDT Pt states pain better, Pt given PAID SEARCH ANALYST and inst on use documented in this [...] ??? Sulfa (Sulfonamide Antibiotics) Social: Lives in [facility] with mom PE: NAD Heart: RRR, No [...] Operative Note Patient Name: Noris Martinez : [id number] MR#: [id number] Case Date: 12/16/2010 Surgeon: Surgeon(s) and Role: [...] all times for balance and protection. The PAID SEARCH ANALYST was discontinued on POD#1 and the patient [...] Contact Information: Your orthopaedic surgeon:Dr. Kevin MD: [phone] If it is after 5:00PM on a weekday or a weekend and it is of an urgent nature please call [phone] and ask for the on-call orthopaedic resident. General Instructions None Future Appointments and Orders Future Appointments: Provider: Department: Dept Phone: Center: 12/31/2010 1:40 PM Brendan Navarro MD [facility] Orthopaedics 3a [phone] [facility] Provider Contact Information: Primary Care Provider: VIRGINIA CRAMER MD [phone] Hospital Attending: Brendan Navarro MD Department of Orthopaedic Surgery Pediatrics: [phone] For questions regarding this document or issues relating to this hospitalization on the Medical Service, please contact your inpatient physician through the [facility] Production Statistical Clerk . Issues afterhours and on weekends will be handled by the Hospitalist staff on-call. Signed: RYLAN GUAMAN MD 12/17/2010 * Plan of Care - Kika Salinas RN - 12/17/2010 6:10 AM EDT Problem: Pain, Acute (Pediatric) Intervention: Acute Pain: Related Risk Factors (Pediatric) S/O: Pain control adequate with PAID SEARCH ANALYST Morphine and scheduled tylenol 1-08/27. Stood at [...] Zhao MD - 12/16/2010 4:00 PM EDT [facility] Operative Note Patient Name: Noris Martinez : [id number] MR#: [id number] Case Date: 12/16/2010 Surgeon: Surgeon(s) and Role: [...] is a 10-year-old female who presented to [facility] with left knee pain. She was found [...] was administered. A time-out was performed per [facility] protocol and preoperative antibiotics were administered. First, [...] Surgical Pathology Report (12/16/2010 2:34 PM EDT) Pathologist [facility] Surgical Pathology Report [id number] ? Location: [place]; [facility]; A The signing pathologist has (i) examined [...] CR-0 12/20/10 KO 12/20/10 Verified by: ? Heike ROSE, Haily ?Pathologist ?(Electronic Signature) The attending pathologist whose signature appears on this report has reviewed all diagnostic slides and has edited the gross and/or microscopic portion of the report in rendering the final pathologic diagnosis. OSCAR HEREDIA 12/16/2010 2:34 PM EDT Jennifer Zhang MD PATHOLOGY/CYTOLOGY O DANIELE Performing Organization Address [facility] de Phone Number OSCAR HEREDIA * Specimen to Pathology (surgical or derm) (12/16/2010 2:10 PM EDT) AP Specimen 12/16/2010 2:10 PM EDT 12/16/2010 2:10 PM EDT Narrative OSCAR FREGOSOIUM - 12/16/2010 2:10 PM EDT Specimen requisition ordered. ??Separate Pathology report to follow Jennifer Zhang MD PATHOLOGY/CYTOLOGY O DANIELE Performing Organization Address [facility] de Phone Number OSCAR HEREDIA * Specimen to Pathology (surgical or derm) (12/16/2010 2:10 PM EDT) AP Specimen 12/16/2010 2:10 PM EDT 12/16/2010 2:10 PM EDT Narrative OSCAR FREGOSOIUM - 12/16/2010 2:10 PM EDT Specimen requisition ordered. ??Separate Pathology report to follow Jennifer Zhang MD PATHOLOGY/CYTOLOGY [place] SANABRIA Performing Organization Address [facility] de Phone Number OSCAR HEREDIA documented [...] 80 mL/hr 80 mL/hr morphine 1 mg/mL PAID SEARCH ANALYST 30 mL Intravenous, PAID SEARCH ANALYST ONLY, Starting on Emma 12/16/10 at 1730, Until Mon12/17/10 at 0706, LOADING DOSE (0-4 mg): 0, PAID SEARCH ANALYST DOSE (0.5-1.5 mg): .5, LOCKOUT INTERVAL (5-20 minutes): 6, CONTINUOUS Infusion Rate (for opioid tolerant patients only): 0, FOUR HOUR DOSE LIMIT (5-30 mg): 20 Rate/Dose Verify 12/16/2010 6:47 PM EDT mL/hr Rate/Dose Verify 12/16/2010 6:46 PM EDT mL/hr New Syringe/Cartridge 12/16/2010 5:30 PM EDT mL /hr morphine 2 mg/mL carpuject 0.5 mg 0.5 mg (0.12021 mg/kg/dose), Intravenous, EVERY 10 MIN PRN, Starting [...] Salinas, YOLY)0417 (Given - Provider: Kika Salinas, YOLY)0800 (Given - Provider: Cherelle Caldwell, RN)1200 (Given - Provider: Cherelle Caldwell, YOLY) ceFAZolin [...] Provider: Og Escobedo RN) morphine 1 mg/mL PAID SEARCH ANALYST 30 mL (CANCELED) Intravenous, PAID SEARCH ANALYST ONLY, Starting on Emma 12/16/10 at 1730, Until Mon12/17/10 at 0706, LOADING DOSE (0-4 mg): 0, PAID SEARCH ANALYST DOSE (0.5-1.5 mg): .5, LOCKOUT INTERVAL (5-20 [...] mg/mL carpuject 0.5 mg (CANCELED) 0.5 mg (0.32114 mg/kg/dose), Intravenous, EVERY 10 MIN PRN, Starting [...] RN) documented in this encounter Care Teams Case Sealer Relationship Specialty Start Date End Date Virginia Cramer MD [address] [place] [address] PCP - General 04/27/10 07/16/15 documented as of this encounter
--- OUTSIDE RECORDS SUMMARY | 2024-05-05 10:46 | XMS_ITS | Encounter Summary ---
Author Organization [facility] Address [facility] [place] [address] Care Team Providers Care English Professor Name Role Phone Michelet Cramer MD Primary Care Provider [phone] Reason for Visit * Reason Onset Date Comments Other 01/10/2011 Encounter Details Date Type Department Care Team (Late st Contact Info) Description 01/10/2011 [place] [phone] Elizabeth Hernandez RN Other Social History Tobacco [...] to head to the OR. He gave rfp writer direction to check cast condition and whether [...] on filedocumented in this encounter Care Teams English Professor Relationship Specialty Start Date End Date Michelet Cramer MD [address] [place] [address] PCP - General 04/27/10 07/16/15 documented as of this encounter
--- OUTSIDE RECORDS SUMMARY | 2024-05-05 10:46 | XMS_ITS | Encounter Summary ---
Author Organization [facility] Address [facility] [place] [address] Care Team Providers Care Industrial Arts Teacher Name Role Phone Michelet Cramer MD Primary Care Provider [phone] Encounter Details Date Type Department Care Team (Late st Contact Info) Description 12/16/2010 12:48 PM EDT Anesthesia Event [place] [phone] Nhan Traylor MD [facility] [place] [address] Kevin Yo, ORACLE TECHNICAL DEVELOPER [address] [place] [address] Anesthesia Record Procedure Summary Procedure Name Responsible [...] patient, father and mother. Plan discussed with ORACLE TECHNICAL DEVELOPER. documented in this encounter Miscellaneous Notes * Addendum Note - Selena Ma - 12/17/2010 10:42 AM EDT Addendum created 12/17/10 1042 by Selena Ma Modules edited:Anesthesia Events, Anesthesia Responsible Staff documented in this encounter Plan of Treatment Not on file documented as of this encounter Visit Diagnoses Not on filedocumented in this encounter Care Teams Industrial Arts Teacher Relationship Specialty Start Date End Date Michelet Cramer MD [address] [place] [address] PCP - General 04/27/10 07/16/15 documented as of this encounter
--- OUTSIDE RECORDS SUMMARY | 2024-05-05 10:46 | XMS_ITS | Encounter Summary ---
Author Organization [facility] Address [facility] [place] [address] Care Team Providers Care Flitch Hanger Name Role Phone Virginia Cramer MD Primary Care Provider [phone] Encounter Details Date Type Department Care Team (Late st Contact Info) Description 04/05/2011 1:28 PM EST - 04/05/2011 2:56 PM EST [place] [phone] Jennifer Zhang MD [facility] [place] [address] ARTHROSCOPY KNEE SYNOVECTOMY LIMITED (WRVU 6.45) Social [...] soreness, which usually goes away in 12-24hours. [facility] - Information Same Day Surgery * Patient [...] Information: Your orthopaedic surgeon:Jennifer Zhang MD: Sports: [phone] If it is after 5:00PM on a weekday or a weekend and it is of an urgent nature please call [phone] and ask for the on-call orthopaedic resident. Your Primary Care Physician: VIRGINIA CRAMER MD [phone] documented in this encounter Medications at Time [...] Kane Chu - 04/05/2011 3:16 PM EST [facility] Operative Note Department of Orthopaedics Patient [...] in the preoperative holding area and green [place] tribe was placed by Dr. Zhang on the left knee. The patient was brought to the operating room by the anesthesia staff. A time-out was held according to [facility] universal protocol. The knee was then [...] Operative Note Patient Name: Andrea Hagan : [id number] MR#: [id number] Case Date: 04/05/2011 Surgeon: Surgeon(s) and Role: * JENNIFRE ZHANG MD - Primary * KANE CHU [...] PM EST) Surgical Pathology Report ? [facility] ? Provider: ?? JENNIFER ZHANG ?? Pt. Name: ?? ANDREA HAGAN ? Acc #: ?[id number] ?Pt. ? Col Date: ?? 04/05/2011 ? /Sex: ?2000,(10 years),Female ? Rec Date: ?? 04/05/2011 ? LOC: ?[facility] ? SURGICAL PATHOLOGY ? ---Pathologic Diagnosis--- ? Left knee synovium, excision ? Chronic nonspecific villous synovitis with hemosiderin. ? 04/07/11 ? [facility] ? 04/08/11 Verified by: ? Pop DO, Marsha Page. ? Pathologist ? (Electronic Signature) ? The [...] to follow Jennifer Zhang MD PATHOLOGY/CYTOLOGY O RDELIZABETH OSCAR FREGOSOIUM * Cell Count Body Fluid [...] CERNE R MILLENNIUM Body fluid specimen (specimen) 04/05/2011 1:08 PM EST 04/05/2011 1:16 PM EST Jennifer Zhang MD BODY FLUIDS AND KIT GREGORY ORDERABLES OSCAR HEREDIA documented in this encounter [...] RN) documented in this encounter Care Teams Flitch Hanger Relationship Specialty Start Date End Date Virginia Cramer MD [address] [place] [address] PCP - General 04/27/10 07/16/15 documented as of this encounter
--- OUTSIDE RECORDS SUMMARY | 2024-05-05 10:46 | XMS_ITS | Encounter Summary ---
[place] [address] Care Team Providers Care Merchant Seaman Name Role Phone Michelet Cramer MD Primary Care Provider [phone] Encounter Details Date Type Department Care Team (Late st Contact Info) Description 04/05/2011 12:55 PM EST Anesthesia [place] [phone] Sahil Cope MD Anesthesia Record Procedure Summary Procedure Name [...] Ervin Kaur RN 04/05/11 1518 by Ervin Kaur, YOLY documented in this encounter Social History Tobacco [...] MAJOR JOINT OR BURSA, KNEE Patient location: Pedi Same Day Post-op pain: Adequate analgesia Post-op [...] with patient and mother. Plan discussed with [employer]. documented in this encounter Miscellaneous Notes * Addendum Note - Selena Ma - 04/05/2011 5:26 PM EST Addendum created 04/05/11 1726 by Selena Ma Modules edited:Anesthesia Events, Anesthesia Responsible Staff documented in this encounter Plan of Treatment Not on file documented as of this encounter Visit Diagnoses Not on filedocumented in this encounter Care Teams Merchant Seaman Relationship Specialty Start Date End Date Michelet Cramer MD [address] [place] [address] PCP - General 04/27/10 07/16/15 documented as of this encounter
--- OUTSIDE RECORDS SUMMARY | 2024-05-05 10:46 | XMS_ITS | Encounter Summary ---
Author Organization [facility] Address [facility] [place] [address] Care Team Providers Care Regional Merchandising Manager Name Role Phone Michelet Cramer MD Primary Care Provider [phone] Reason for Referral * Surgical (Routine) - Complete - Patient Will Schedule External Appt Specialty Diagnoses / Procedures Referred By Jack sherman Referred To Contact Orthopaedic Surgery Diagnoses Effusion of knee joint Cole Brown MD [facility] [place] [address] Referral ID Status Reason Start Date Expiration Date Visits Requested Visits Authorized [id number] Complete - Patient Will Schedule External Appt Assume Subset of Care 09/13/2010 03/12/2011 1 1 Encounter Details Date Type Department Care Team (Late st Contact Info) Description 09/13/2010 [place] [address] Cole Brown MD [facility] [place] [address] Effusion of knee joint (Primary Dx) Social [...] joint documented in this encounter Care Teams Regional Merchandising Manager Relationship Specialty Start Date End Date Michelet Cramer MD [address] [place] [address] PCP - General 04/27/10 07/16/15 documented as of this encounter
--- OUTSIDE RECORDS SUMMARY | 2024-05-05 10:46 | XMS_ITS | Encounter Summary ---
Author Organization [facility] Address [facility] [place] [address] Care Team Providers Care Recreation Facility Manager Name Role Phone Michelet Cramer MD Primary Care Provider [phone] Reason for Visit * Reason Onset Date Comments Other 12/21/2010 Encounter Details Date Type Department Care Team (Late st Contact Info) Description 12/21/2010 Telephone [place] [address] Elizabeth Hernandez RN Other Social History Tobacco [...] so compliant with the no weight bearing, Momcee continue to re-enforce NWB. Cast starting to [...] on filedocumented in this encounter Care Teams Recreation Facility Manager Relationship Specialty Start Date End Date Michelet Cramer MD [address] [place] [address] PCP - General 04/27/10 07/16/15 documented as of this encounter
--- OUTSIDE RECORDS SUMMARY | 2024-05-05 10:46 | XMS_ITS | Encounter Summary ---
Author Organization [facility] Address [facility] [place] [address] Care Team Providers Care Family Assessment Worker Name Role Phone Michelet Cramer MD Primary Care Provider [phone] Encounter Details Date Type Department Care Team (Late st Contact Info) Description 08/31/2010 8:38 AM EDT - 08/31/2010 9:51 AM EDT Surgery [place] [phone] Brendan Navarro MD [facility] [place] [address] ARTHROSCOPY KNEE, DIAGNOSTIC (WRVU 5.19) Social History [...] soreness, which usually goes away in 12-24hours. [facility] - Information Same Day Surgery * Patient Instructions* Cruz Scottus - 08/31/2010 11:34 AM EDT Same Day [...] hours. If you have questions please call [phone] documented in this encounter Medications at Time [...] Notes * Miscellaneous - Provider, Scanning - 09/01/2010 4:01 PM EDT * Miscellaneous - Provider, Scanning - 09/01/2010 3:40 PM EDT * Op Note - Cosmo Scott - 08/31/2010 12:03 PM EDT [facility] Operative Note Patient Name: Andrea Hagan : [id number] MR#: [id number] Case Date: 08/31/2010 Surgeon: Surgeon(s) and Role: [...] We then placed the patient in the [id number] position and advanced the scope into the [...] we sought an intraoperative consultation with Dr. Beniot Zhang. After discussing the options, we decided [...] Operative Note Patient Name: Andrea Hagan : [id number] MR#: [id number] Case Date: 08/31/2010 Surgeon: Surgeon(s) and Role: [...] 12:44 PM EDT) Fluid Review Report ? [facility] ? Provider: ?? BRENDAN NAVARRO ? Pt. Name: ?? ANDREA HAGAN ?LEMUEL ? Acc #: ?[id number] ? Pt. ? Col Date: ?? 08/31/2010 [...] 11:10 AM EDT) Surgical Pathology Report [id number] ? Location: SDA; SA04; GG The signing pathologist has (i) examined the [...] 0.8 x 0.3 cm. Tissue Description: ?? [place], cylindrical cores of bone. Sections/Proces sing: ??(T1) [...] report in rendering the final pathologic diagnosis. [facility] 08/31/2010 11:1 0 AM EDT Brendan Navarro MD PATHOLOGY/CYTOLOGY O RDERABLES [facility] * SURGICAL PATHOLOGY REPORT (08/31/2010 11:10 AM EDT) Surgical Pathology Report ? [facility] ? Provider: ?? BRENDAN NAVARRO ? Pt. Name: ?? ANDREA HAGAN ?LEMUEL ? Acc #: ?[id number] ?Pt. ? Col Date: ?? 08/31/2010 ? [...] x 0.3 cm. ? Tissue Description: ?? [place], cylindrical cores of bone. ? Sections/Processi ng: ??(T1) following decalcification. ?? vms/SNS ? ---Clinical Information--- ? Specimen Submitted: ? A - Left knee loose bodies ? B - Left knee bone ? Clinical History/Diagnosis : ? Left knee affusion [facility] 08/31/2010 11:1 0 AM EDT Brendan Navarro MD PATHOLOGY/CYTOLOGY O RDERABLES Performing Organization Address [facility] de Phone Number OSCAR HEREDIA * Cell Count Body Fluid (08/31/2010 10:00 AM EDT) Body Fluid Source Knee, Left C ERNER MILLENNIUM Color, Fld [place] CERNER MILLENNIUM Appearance, Fld Hazy CERN ER [...] FLUID DIFFERENTIAL Final report to follow. (See [id number] ) Neutrophil%: 5 Lymphocyte%: 51 Macrophage%: 38 Mesothelial%: 6 Eosinophil%: Basophil%: Other Cells%: Total cells counted on cytocentrifuge differential smear: 200 Slide sent to Pathologist for smear review. See Fluid Review Report under Hematology Reports for final interpretation. Body fluid specimen (specimen) 08/31/2010 10:00 AM EDT 08/31/2010 10:03 AM EDT Brendan Navarro MD BODY FLUIDS AND STOO LS ORDERABLES Performing Organization Address [facility] de Phone Number OSCAR HEREDIA * REFLEX LAB-ANAEROBIC CULTURE (08/31/2010 9:51 AM EDT) Anaerobic Culture ? Patient Name: ANDREA HAGAN ?? Ordered By: BRENDAN NAVARRO ? MR#: [id number] ?LOC: ??[facility]A ? /Sex: ??2000 (10 years), ? Female ? PROCEDURE: Anaerobic Culture ?SOURCE: Knee Fl ? COLLECTED: 08/31/2010 09:51 ? STARTED: 08/31/2010 10:16 ? FINAL REPORT ? Final Report ? Verified:2010 14:22 ? No anaerobic organisms isolated ? PRELIMINARY REPORT ? Preliminary Report ? Verified:2010 11:51 ? No anaerobic organisms isolated to date ? [facility] K[facility] joint synovial fluid (specimen) 08/31/2010 9:51 AM EDT 08/31/2010 10:16 AM EDT Brendan Navarro MD MICROBIOLOGY - GENER AL ORDERABLES [facility] * BODY FLUID CULTURE (08/31/2010 9:51 AM EDT) Body Fluid Culture ? Patient Name: ANDREA HAGAN ?? Ordered By: BRENADN NAVARRO ? MR#: [id number] ?LOC: ??[facility] ? /Sex: ??2000 (10 years), [...] 07:20 ? No growth to date. ? [facility] HEREDIA Knee joint synovial fluid (specimen) 08/31/2010 9:51 AM EDT 08/31/2010 10:16 AM EDT Brendan Navarro MD MICROBIOLOGY - GENER AL ORDERABLES [facility] documented in this encounter Visit Diagnoses [...] knee) documented in this encounter Care Teams Family Assessment Worker Relationship Specialty Start Date End Date Michelet Cramer MD [address] [place] [address] PCP - General 04/27/10 07/16/15 documented as of this encounter
--- OUTSIDE RECORDS SUMMARY | 2024-05-05 10:46 | XMS_ITS | Encounter Summary ---
Author Organization [facility] Address [facility] [place] [address] Care Team Providers Care Director Multiple Sclerosis Center Name Role Phone Michelet Cramer MD Primary Care Provider [phone] Reason for Visit * Reason Comments Left Knee Pain PATELLAR REALIGNMENT Encounter Details Date Type Department Care Team (Late st Contact Info) Description 03/02/2011 2:20 PM EST [place] [phone] Cole Brown MD [facility] [place] [address] Effusion of knee joint (Primary Dx) Discharge [...] bearing as tolerated. We will get a furnace maintenance weight smaller patellar stabilizing brace today that [...] documented. Cole Brown M.D. Department of Orthopaedics [facility] NPI # [id number] [place] [id number] * Cole Brown MD - 03/02/2011 2:14 PM EST documented in this encounter Plan of Treatment Not on file documented as of this encounter Visit Diagnoses Diagnosis Effusion of knee joint- Primary Effusion of lower leg joint documented in this encounter Care Teams Director Multiple Sclerosis Center Relationship Specialty Start Date End Date Michelet Cramer MD [address] [place] [address] PCP - General 04/27/10 07/16/15 documented as of this encounter
--- OUTSIDE RECORDS SUMMARY | 2024-05-05 10:46 | XMS_ITS | Encounter Summary ---
Author Organization [facility] Address [facility] [place] [address] Care Team Providers Care Superintendent Factory Name Role Phone Michelet Cramer MD Primary Care Provider [phone] Encounter Details Date Type Department Care Team (Latest Contact Info) Description 08/17/2011 12:07 PM EDT - 08/17/2011 11:59 PM EDT Hospital [place] [address] CLINIC, DR CEFERINO Zhang, Benito Kenny MD [facility] [place] [address] Discharge Disposition: Home Social History Tobacco Use [...] and interpretation reviewed by the attending Benito Zhang MD [facility] MRI ORDERABLES documented in this encounter Visit Diagnoses Not on filedocumented in this encounter Care Teams Superintendent Factory Relationship Specialty Start Date End Date Michelet Cramer MD [address] [place] [address] PCP - General 04/27/10 07/16/15 documented as of this encounter
--- OUTSIDE RECORDS SUMMARY | 2024-05-05 10:46 | XMS_ITS | Encounter Summary ---
Author Organization [facility] Address [facility] [place] [address] Care Team Providers Care Associate Sales Representative Name Role Phone Michelet Cramer MD Primary Care Provider [phone] Reason for Visit * Reason Onset Date Comments Other 09/09/2010 patient needs hc k Encounter Details Date Type Department Care Team (Late st Contact Info) Description 09/09/2010 Telephone [place] [address] Cole Brown MD [facility] [place] [address] Other (patient needs hck) Social History Tobacco [...] a HCK. Mother states Samreen is in [place] until The end of October and would like for her to see an Orthopaedic Surgeon there(with Father and Step mother, but will need a Letter of what the Doc should be looking for or what he/she should be doing with Samreen. I spoke with Dr Brown and he would like Elizabeth to call [phone]/ [phone]) and discuss what should or will happen.Elizabeth [...] filedocumented in this encounter Care Teams Associate Sales Representative Relationship Specialty Start Date End Date Michelet Cramer MD [address] [place] [address] PCP - General 04/27/10 07/16/15 documented as of this encounter
--- OUTSIDE RECORDS SUMMARY | 2024-05-05 10:46 | XMS_ITS | Encounter Summary ---
Author Organization [facility] Address [facility] [place] [address] Care Team Providers Care Fire Chief Name Role Phone Michelet Cramer MD Primary Care Provider [phone] Reason for Visit * Reason Onset Date Comments Other 09/13/2010 Encounter Details Date Type Department Care Team (Late st Contact Info) Description 09/13/2010 Tele[place] [address] Elizabeth Hernandez RN Other Social History Tobacco [...] Patient's Dad contacted Pedi Ortho practices in [place] who do not take [place] Medicaid. Lifestyle Coordinator contacted [place] Medicaid who advised that the practice in [place] would have to enroll in Medicaid. Lifestyle Coordinator explored the option of having Dad pay up front and then Medicaid reimbursing, Medicaid will not do this. Medicaid's recommendation was to have patient seen in ER in [place]. Mom was going to call area ER [...] she needs to go to the local [facility]. They should, then place her in a well fitting knee immobilizer to eliminate ability to bend knee. * Telephone Encounter - Elizabeth Hernandez RN - 09/13/2010 3:17 PM EDT Call Documentation Heather Glezns 09/09/10 03:31 PM Signed Samreen has a follow up appointment on September 23 for (ARTHROSCOPY KNEE, DIAGNOSTIC CAST APPLICATION, LONG LEG (THIGH TO TOES) ARTHROSCOPY KNEE CHONDROPLASTY) a HCK. Mother states Samreen is in [place] until The end of October and would like for her to see an Orthopaedic Surgeon there(with Father and Step mother, but will need a Letter of what the Doc should be looking for or what he/she should be doing with Samreen. I spoke with Dr Brown and he would like Elizabeth to call mom([phone]/ W [phone]) and discuss what should or will happen.Elizabeth to discuss with Dr Brown for the decision of what the plan will be. Gave Mom the phone numbers for a couple of Pediatric Orthopaedic physician's in [facility] [place] [address] fax# . Mom will call medical writer when she needs notes and xrays sent. Re-scheduledfollow up to coincide with Dr. Patterson documented in this encounter Plan of Treatment Not on file documented as of this encounter Visit Diagnoses Not on filedocumented in this encounter Care Teams Fire Chief Relationship Specialty Start Date End [place] [address] PCP - General 04/27/10 07/16/15 documented as of this encounter
--- OUTSIDE RECORDS SUMMARY | 2024-05-05 10:46 | XMS_ITS | Encounter Summary ---
Author Organization [facility] Address [facility] [place] [address] Care Team Providers Care Color Checker Name Role Phone Michelet Cramer MD Primary Care Provider [phone] Encounter Details Date Type Department Care Team (Late st Contact Info) Description 01/20/2011 2:20 PM EDT [place] [phone] Cole Brown MD [facility] [place] [address] Effusion of knee joint, left (Primary Dx) [...] of this encounter Progress Notes * Cole Bronw MD - 02/09/2011 10:22 AM EST History [...] joint documented in this encounter Care Teams Color Checker Relationship Specialty Start Date End Date Michelet Cramer MD [address] [place] [address] PCP - General 04/27/10 07/16/15 documented as of this encounter
--- OUTSIDE RECORDS SUMMARY | 2024-05-05 10:46 | XMS_ITS | Encounter Summary ---
Author Organization [facility] [place] [address] Care Team Providers Care Outsole Rounder Name Role Phone Michelet Cramer MD Primary Care Provider [phone] Reason for Visit * Reason Comments Follow Up Surgery L KNEE SCOPE. DOS Encounter Details Date Type Department Care Team (Late st Contact Info) Description 06/08/2011 2:20 PM EDT [place] [phone] Mary Ann Call MD Effusion of knee joint (Primary Dx) Discharge [...] concern about clarity of diagnosis, and questioned AIDAN as seemingly less likely. A: Symptoms stable. [...] joint documented in this encounter Care Teams Outsole Rounder Relationship Specialty Start Date End Date Michelet Cramer MD [address] [place] [address] PCP - General 04/27/10 07/16/15 documented as of this encounter
--- OUTSIDE RECORDS SUMMARY | 2024-05-05 10:47 | XMS_ITS | Encounter Summary ---
Author Organization [facility] [place] [address] Care Team Providers Care Clinical Courier Name Role Phone Michelet Cramer MD Primary Care Provider [phone] Encounter Details Date Type Department Care Team (Late st Contact Info) Description 08/26/2010 [place] [address] Irish Brandt, RN Social History Tobacco Use [...] on filedocumented in this encounter Care Teams Clinical Courier Relationship Specialty Start Date End Date Michelet Cramer MD [address] [place] [address] PCP - General 04/27/10 07/16/15 documented as of this encounter
--- OUTSIDE RECORDS SUMMARY | 2024-05-05 10:47 | XMS_ITS | Encounter Summary ---
Author Organization [facility] Address [facility] [place] [address] Care Team Providers Care Ladies' Hat Trimmer Name Role Phone Michelet Cramer MD Primary Care Provider [phone] Reason for Visit * Reason Onset Date Comments Results 07/06/2010 Encounter Details Date Type Department Care Team (Late st Contact Info) Description 07/06/2010 Telephone [place] [address] Cole Brown MD [facility] DR ORTHOPAEDIC SURGERY [place] [id number] Results Social History Tobacco Use Types Packs/Day [...] on filedocumented in this encounter Care Teams Ladies' Hat Trimmer Relationship Specialty Start Date End Date Michelet Cramer MD [address] [place] [address] PCP - General 04/27/10 07/16/15 documented as of this encounter
--- OUTSIDE RECORDS SUMMARY | 2024-05-05 10:47 | XMS_ITS | Encounter Summary ---
Author Organization [facility] Address [address] [place] [address] Care Team Providers Care Children'S Court Magistrate Name Role Phone Unknown, Provider Primary Care Provider Unava ilable Encounter Details Date Type Department Care Team (Late st Contact Info) Description 04/27/2017 Results Only [facility] [phone] Misael Rivas, [address] [place], [place] [id number] Social History Tobacco Use Types Packs/Day Years Used Date Smoking Tobacco: Never Assessed Comments Unknown Sex and Gender Information Value Date Recorded Sex Assigned at Not on file Legal Sex Female 9:16 EST Gender Identity Not on file Sexual Orientation [...] ? ANDREA HAGAN ? Accession #: ? [id number] ? : ? 2000 (Age: 16) ??F [...] (ASCP) 04/28/2017 10:28 AM End of Report [facility] 04/27/2017 9:20 EST 04/28/2017 9:20 EST us Misael Rivas DO PATHOLOGY ORDERABLES Fi nal Result Performing Organization Address City/State/[facility] Co de Phone Number [facility] [address] [place] [phone] documented in this encounter Visit Diagnoses Not on filedocumented in this encounter Care Teams Children'S Court Magistrate Relationship Specialty Start Date End Date Unknown, Provider, PCP - General 04/28/17 documented as of this encounter
--- OUTSIDE RECORDS SUMMARY | 2024-05-05 10:47 | XMS_ITS | Referral Summary ---
Author Organization [facility] Address [address] [place] [address] Care Team Providers Care Band Straightener Name Role Phone Unknown, Provider Primary Care Provider Unava ilable Social History Tobacco Use Types Packs/Day Years Used Date Smoking Tobacco: Never Assessed Interpersonal Safety Answer Date Record ed Physically Hurt Never 10/21/2019 Verbally Threaten Not on file 10/21/2019 Comments Unknown Sex and Gender Information Value Date Recorded Sex Assigned at Not on file Legal Sex Female 9:16 EST Gender Identity Not on file Sexual Orientation Not on file Plan of Treatment Not on file Insurance MEDICAID [facility] [place] Care Teams Band Straightener Relationship Specialty Start Date End Date Unknown, Provider, PCP - General 04/28/17
--- OUTSIDE RECORDS SUMMARY | 2024-05-05 10:47 | XMS_ITS | Clinical Summary ---
Author Organization [facility] Address [address] [place] [address] Care Team Providers Care Automotive Manufacturer Name Role Phone Unknown, Provider Primary Care [...] 3-dose series) 05/30 COVID-19 Vaccine ( season) 2023 Insurance MEDICAID [place] Care Teams Automotive Manufacturer Relationship Specialty Start Date End Date Unknown, Provider, PCP - General 04/28/17
--- OUTSIDE RECORDS SUMMARY | 2024-05-05 10:47 | XMS_ITS | Encounter Summary ---
Author Organization [facility] [place] [address] Care Team Providers Care Wire Border Assembler Name Role Phone Michelet Cramer MD Primary Care Provider [phone] Reason for Referral * Consultation (Routine) - Closed Specialty Diagnoses / Procedures Referred By Contlorena t Referred To Contact Rheumatology Diagnoses Effusion of knee joint Brendan Brown MD [facility] [place] [address] [facility] [address] [place] [address] Referral ID Status Reason Start Date Expiration Date V isits Requested Visits Authorized [id number] Closed Consult, Test & Treat 07/06/2010 01/02/2011 1 1 Reason for Visit * Reason Comments Left Knee Pain cant bare weight wit hout lots pain Encounter Details Date Type Department Care Team (Late st Contact Info) Description 07/06/2010 10:20 AM EDT [place] [phone] Brendan Brown MD [facility] [place] [address] Hip pain (Primary Dx); Effusion of knee [...] ?? Ordered By: BRENDAN BROWN ? MR#: [id number] ?LOC: ??3A ? /Sex: ??2000 (10 years), ? Female ? PROCEDURE: Anaerobic Culture ?SOURCE: Knee Fl ? COLLECTED: 07/06/2010 13:56 ? STARTED: 07/06/2010 13:56 ? FINAL REPORT ? Final Report ? Verified:2010 13:51 ? No anaerobic organisms isolated ? PRELIMINARY REPORT ? Preliminary Report ? Verified:2010 15:02 ? No anaerobic organisms isolated to date ? [facility] Knee joint synovial fluid (specimen) 07/06/2010 1:56 PM EDT 07/06/2010 1:56 PM EDT Brendan Brown MD MICROBIOLOGY - GENER AL ORDERABLES [facility] * BODY FLUID CULTURE (07/06/2010 1:56 PM EDT) Body Fluid Culture ? Patient Name: ANDREA HAGAN ?? Ordered By: BRENDAN BROWN ? MR#: [id number] ?LOC: ??3A ? /Sex: ??2000 (10 years), [...] 08:58 ? No growth to date. ? [facility] Knee joint synovial fluid (specimen) 07/06/2010 1:56 PM EDT 07/06/2010 1:56 PM EDT Brendan Brown MD MICROBIOLOGY - GENER AL ORDERABLES [facility] * High Sensitivity CRP (07/06/2010 1:06 PM EDT) C-Reactive Protein High Sensitivity 9.4 mg/L [facility] Comment: Interpretations: 1) For cardiac risk assessment, [...] PM EDT 07/06/2010 1:12 PM EDT Brendan rBown MD CHEMISTRY ORDERABLES Performing Organization Address [facility] de Phone Number [employer] * Lyme IgG & IgM Antibody (07/06/2010 1:06 PM EDT) Lyme Antibody Negative Negative CERNER Hum[employer] Bundle Blood specimen (specimen) 07/06/2010 1:06 PM EDT 07/07/2010 10:28 AM EDT Brendan Brown MD IMMUNOLOGY ORDERABLE S Performing Organization Address [facility] de Phone Number [employer] * (ABNORMAL) BERNY (07/06/2010 1:06 PM EDT) BERNY Pos Titer TF(A) Neg CERNER [employer] Blood specimen (specimen) 07/06/2010 1:06 PM EDT 07/06/2010 2:30 PM EDT Brendan Brown MD LAB SEND OUT ORDERAB LES Performing Organization Address [facility]/State/[facility] de Phone Number CERDOUG HARPERENNIUM * Rheumatoid factor, quant (07/06/2010 1:06 PM EDT) Rheumatoid Factor 10 <=14 IU/mL CERNER MILLENNIUM Blood specimen (specimen) 07/06/2010 1:06 PM EDT 07/06/2010 1:12 PM EDT Brendan Brown MD CHEMISTRY ORDERABLES Performing Organization Address [facility] de Phone Number OSCAR FREGOSOIUM * (ABNORMAL) Sedimentation rate (07/06/2010 1:06 PM EDT) Sedimentation Rate Automated 23(H) 0 - 10 mm/hr CERNER MILLENNIUM Blood specimen (specimen) 07/06/2010 1:06 PM EDT 07/06/2010 1:12 PM EDT Brendan Brown MD HEMATOLOGY ORDERABLE S Performing Organization Address [facility] de Phone Number CERDOUG HARPERENNIUM * CBC [...] MD HEMATOLOGY ORDERABLE S Performing Organization Address [facility]/State/ZIP Co de Phone Number CERNER MILLENNIUM * Cell Count Body Fluid (07/06/2010 12:50 [...] AND STOO LS ORDERABLES Performing Organization Address [facility] Co de Phone Number CERDOUG HARPERENNIUM * Glucose Level Body Fluid (07/06/2010 12:50 [...] AND STOO LS ORDERABLES Performing Organization Address [facility]/ZIP Co de Phone Number CERDOUG MILLENNIUM * Crystal Exam Body Fluid (07/06/2010 12:50 PM EDT) Crystal BF Type Knee, Left CERNER MILLENNIUM Crystal Exam, Fld See Note CE RNER MILLENNIUM Comment: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 Body fluid specimen (specimen) 07/06/2010 12:50 PM EDT 07/06/2010 2:30 PM EDT Brendan Brown MD BODY FLUIDS AND STOO LS ORDERABLES Performing Organization Address [facility] de Phone Number OSCAR FREGOSOIUM * Protein Level Body Fluid (07/06/2010 12:50 [...] clinical status. Prot, Fld Type Knee, Left CERNER LEROYENNIUM Body fluid specimen (specimen) 07/06/2010 12:50 PM EDT 07/06/2010 2:31 PM EDT Brendan Brown MD BODY FLUIDS AND STOO LS ORDERABLES Performing Organization Address [facility] Phone Number OSCAR HEREDIA documented in this encounter Visit Diagnoses Diagnosis Hip pain- Primary Pain in joint, pelvic region and thigh Effusion of knee joint Effusion of lower leg joint documented in this encounter Care Teams Wire Border Assembler Relationship Specialty Start Date End Date Michelet Cramer MD [address] [place] [address] PCP - General 04/27/10 07/16/15 documented as of this encounter
--- OUTSIDE RECORDS SUMMARY | 2024-05-05 10:47 | XMS_ITS | Encounter Summary ---
Author Organization [facility] Address [facility] [place] [address] Care Team Providers Care Loop Tender Name Role Phone Michelet Cramer MD Primary Care Provider [phone] Reason for Visit * Reason Comments Left Knee Pain Encounter Details Date Type Department Care Team (Late st Contact Info) Description 08/26/2010 3:40 PM EDT [place] [phone] Cole Brown MD [facility] [place] [address] Knee pain (Primary Dx) Discharge Disposition: Home [...] documented. Cole Brown M.D. Department of Orthopaedics [facility] NPI # [id number] [place] [address] * Parveen Obrien MD - 08/26/2010 6:35 [...] she was seen by Dr. Patterson, pediatric software quality specialist, and based on clinical history and some [...] leg documented in this encounter Care Teams Loop Tender Relationship Specialty Start Date End Date Michelet Cramer MD [address] [place] [address] PCP - General 04/27/10 07/16/15 documented as of this encounter
--- OUTSIDE RECORDS SUMMARY | 2024-05-05 10:47 | XMS_ITS | Encounter Summary ---
Author Organization [facility] [place] [address] Care Team Providers Care Tank Calibrator Name Role Phone Michelet Cramer MD Primary Care Provider [phone] Reason for Visit * Reason Comments Left Knee Pain with swelling Encounter Details Date Type Department Care Team (Late st Contact Info) Description 07/06/2010 11:00 AM EDT Office Visit [facility] [address] [place] [address] MD Effusion of knee joint (Primary Dx) [...] slipping.She was followed by an orthopedist in [place] and then referred here to [facility] in April of 2010. She was given [...] spends the messer with her father in [place]. She has a 1/2 brother and 1 [...] po bid. 3. Eye exam by an counselor nurses' association to R/O uveitis. Further exams should be [...] of knee joint SCAN, PERIPHERAL BLOOD Routine 1:06 PM EDT DNA ANTIBODY (DOUBLE-STRANDED) Routine [...] REFLEX LAB-BERNY TITER (07/06/2010 1:06 PM EDT) Pathologist [facility] BERNY Titer positive [facility] Comment: 1:160 Titer seen with Homogeneous/Diffuse pattern. ??Is suggestive of autoantibodies to nDNA, histones, or DNA-associated proteins. Blood specimen (specimen) 07/06/2010 1:06 PM EDT 07/06/2010 2:30 PM EDT Cole Brown MD IMMUNOLOGY ORDERABLE S Performing Organization Address City/[facility] Co de Phone Number [facility] * DNA ANTIBODY (DOUBLE-STRANDED) (07/06/2010 1:06 PM EDT) Pathologist [facility] DNA Ab (DS) Neg Neg [facility] Blood specimen (specimen) 07/06/2010 1:06 PM EDT 07/06/2010 2:30 PM EDT Cole Brown MD LAB SEND OUT ORDERAB LES [facility] * REFLEX LAB-SCAN, PERIPHERAL BLOOD (07/06/2010 1:06 PM EDT) Pathologist [facility] Plat estimate Normal [facility] RBC Morphology Normal [facility] Blood specimen (specimen) 07/06/2010 1:06 PM EDT 07/06/2010 1:12 PM EDT Cole Brown MD HEMATOLOGY ORDERABLE S CERNER MILLENNIUM * (ABNORMAL) REFLEX LAB-A-DIFF (07/06/2010 1:06 PM [...] EDT Cole Brown MD HEMATOLOGY ORDERABLE S CERDOUG HARPERENNIUM * High Sensitivity CRP (07/06/2010 1:06 PM EDT) C-Reactive Protein High Sensitivity 9.4 mg/L [facility] Comment: Interpretations: 1) For cardiac [...] PM EDT Cole Brown MD CHEMISTRY ORDERABLES [facility] * Lyme IgG & IgM Antibody (07/06/2010 1:06 PM EDT) Pathologist [facility] Lyme Antibody Negative Negative [facility] Blood specimen (specimen) 07/06/2010 1:06 PM EDT 07/07/2010 10:28 AM EDT Cole Brown MD IMMUNOLOGY ORDERABLE S Performing Organization Address [facility]/ZIP Co de Phone Number CERNER MILLENNIUM * (ABNORMAL) BERNY (07/06/2010 1:06 PM EDT) BRENY Pos Titer TF(A) Neg CERNER MILLENNIUM Blood specimen (specimen) 07/06/2010 1:06 PM EDT 07/06/2010 2:30 PM EDT Cole Brown MD LAB SEND OUT ORDERAB LES Performing Organization Address [facility]/ZIP Co de Phone Number CERNER LEROYENNIUM * Rheumatoid factor, quant (07/06/2010 1:06 PM EDT) Pathologist [facility] Rheumatoid Factor 10 <=14 IU/mL CERNER MILLENNIUM Blood specimen (specimen) 07/06/2010 1:06 PM EDT 07/06/2010 1:12 PM EDT Cole Brown MD CHEMISTRY ORDERABLES Performing Organization Address [facility]/ZIP Co de Phone Number CERNER MILLENNIUM * (ABNORMAL) Sedimentation rate (07/06/2010 1:06 PM EDT) Pathologist [facility] Sedimentation Rate Automated 23(H) 0 - 10 mm/hr CERNER MILLENNIUM Blood specimen (specimen) 07/06/2010 1:06 PM EDT 07/06/2010 1:12 PM EDT Cole Brown MD HEMATOLOGY ORDERABLE S CERNER MILLENNIUM * CBC (with Diff) (07/06/2010 1:06 PM [...] Cole Brown MD HEMATOLOGY ORDERABLE S OSCAR HEREDIA documented in this encounter Visit Diagnoses Diagnosis Effusion of knee joint- Primary Effusion of lower leg joint documented in this encounter Care Teams Tank Calibrator Relationship Specialty Start Date End Date Michelet Cramer MD [address] [place] [address] PCP - General 04/27/10 07/16/15 documented as of this encounter
--- OUTSIDE RECORDS SUMMARY | 2024-05-05 10:47 | XMS_ITS | Encounter Summary ---
[place] [address] Care Team Providers Care Feather Curling Machine Operator Name Role Phone Michelet Cramer MD Primary Care Provider [phone] Encounter Details Date Type Department Care Team (Late st Contact Info) Description 08/31/2010 9:14 AM EDT Anesthesia Event [place] [phone] Dillon Colindres MD Anesthesia Record Procedure Summary Procedure Name [...] 0900; 08/31/10; 1257 08/31/10 0900 by Bowen Adame, RN 08/31/10 1257 by Ervin Kaur RN [...] on filedocumented in this encounter Care Teams Feather Curling Machine Operator Relationship Specialty Start Date End Date Michelet Cramer MD [address] [place] [address] PCP - General 04/27/10 07/16/15 documented as of this encounter
--- OUTSIDE RECORDS SUMMARY | 2024-05-05 10:47 | XMS_ITS | Encounter Summary ---
Author Organization [facility] Address [address] [place] [address] Care Team Providers Care Senior Administrative Support Name Role Phone Unknown, Provider Primary Care Provider Unava ilable Encounter Details Date Type Department Care Team (Late st Contact Info) Description 03/28/2019 Lab Requisition [facility] Pathology & Laboratory Medicine - [address] [address] Khang Lamb MD [address] [place] [address] Encounter for other general examination Social History [...] membranes - Gestational-type endometrium 04/04/2019 11:20 EST [facility] at 1120 Clinical History Incomplete spontaneous with excessive hemorrhage. DO NOT DISCARD, store for 2 weeks after report finalization, return to [facility]. 04/04/2019 11:20 EST [facility] Attestation There was significant resident/fellow involvement in the diagnostic evaluation of this case. By the signature below, the attending physician certifies that they have personally conducted a gross and/or microscopic examination of the described specimens and rendered or confirmed the above diagnosis. 04/04/2019 11:20 [facility] at 1120 Gross Description A. Received in formalin labelled with proper patient identification (initials T, R) and products of conception is an aggregate of knowles-brown to black rubbery tissue (8.0 x 6.0 x 2.0 cm). No villous tissue, gestational sac or tissue is identified grossly. Client Resolution Specialist sections are submitted in [id number]. Per requisition: ? DO NOT DISCARD, store for 2 weeks after report finalization, return to [facility] Wei Coles MD 03/29/2019 14:15 04/04/2019 11:20 [facility] Resident/Jorje w: Wei Coles MD 04/04/2019 11:20 [facility] Scanned Images 04/04/2019 11:20 [facility] Tissue PRODUCTS OF CONCEPTION TISSUE SPECIMEN / Unknown 03/28/2019 0:30 EST 03/28/2019 17:31 EST us Khang Lamb MD PATHOLOGY ORDERABLES Final Resul t [facility] [address] [place] [address] documented in this encounter Visit Diagnoses Diagnosis Encounter for other general examination documented in this encounter Care Teams Senior Administrative Support Relationship Specialty Start Date End Date Unknown, Provider, PCP - General 04/28/17 documented as of this encounter
--- OUTSIDE RECORDS SUMMARY | 2024-05-05 10:47 | XMS_ITS | Encounter Summary ---
Author Organization [facility] Address [facility] [place] [address] Care Team Providers Care Rn Acute Dialysis Name Role Phone Michelet Cramer MD Primary Care Provider [phone] Encounter Details Date Type Department Care Team (Late st Contact Info) Description 04/30/2010 2:40 PM EST Office [place] [phone] Cole Brown MD [facility] [place] [address] Discharge Disposition: Home Social History Tobacco Use [...] ORDERABLE S Performing Organization Address [facility] Co de Phone Number [facility] * (ABNORMAL) BERNY (04/30/2010 4:49 PM EST) BERNY Pos(A) Neg [facility] Comment: 1:80 Titer seen with Homogeneous/Diffuse pattern. ??Is suggestive of autoantibodies to nDNA, histones, or DNA-associated proteins. Blood specimen (specimen) 04/30/2010 4:49 PM EST 05/03/2010 8:28 AM EST Cole Brown MD LAB SEND OUT ORDERAB LES Performing Organization Address [facility] Phone Number [facility] * RHEUMATOID FACTOR (04/30/2010 4:49 PM EST) Rheumatoid Factor <10 <=14 IU/mL [facility] Blood specimen (specimen) 04/30/2010 4:49 PM EST 04/30/2010 4:56 PM EST Cole Brown MD CHEMISTRY ORDERABLES Performing Organization Address [facility] Phone Number [facility] * (ABNORMAL) SEDIMENTATION RATE, AUTOMATED (04/30/2010 4:49 PM EST) Sedimentation Rate Automated 11(H) 0 - 10 mm/hr [facility] Blood specimen (specimen) 04/30/2010 4:49 PM EST 04/30/2010 4:56 PM EST Cole Brown MD HEMATOLOGY ORDERABLE S Performing Organization Address [facility] Co de Phone Number [facility] * CBC (04/30/2010 4:49 PM EST) White [...] EST Cole Brown MD HEMATOLOGY ORDERABLE S CERDOUG MILLENNIUM * HIGH SENSITIVITY CRP (04/30/2010 4:49 PM [...] PM EST Cole Brown MD CHEMISTRY ORDERABLES [facility] documented in this encounter Visit Diagnoses Not on filedocumented in this encounter Care Teams Rn Acute Dialysis Relationship Specialty Start Date End Date Michelet Cramer MD [address] [place] [address] PCP - General 04/27/10 07/16/15 documented as of this encounter
--- OUTSIDE RECORDS SUMMARY | 2024-05-05 10:47 | XMS_ITS | Encounter Summary ---
Author Organization [facility] Address [facility] [place] [address] Care Team Providers Care Steel Analyst Name Role Phone Michelet Cramer MD Primary Care Provider [phone] Encounter Details Date Type Department Care Team (Late st Contact Info) Description 07/14/2010 10:00 AM EDT Hospital Encounter Hematology [place] [phone] Jaja Viera, RN Social History Tobacco Use [...] on filedocumented in this encounter Care Teams Steel Analyst Relationship Specialty Start Date End Date Michelet Cramer MD [address] [facility] [place] [address] PCP - General 04/27/10 07/16/15 documented as of this encounter
--- OUTSIDE RECORDS SUMMARY | 2024-05-05 10:47 | XMS_ITS | Encounter Summary ---
Author Organization [facility] Address [facility] [place] [address] Care Team Providers Care Paper Tube Machine Operator Name Role Phone Unavailable Primary Care Provider Unavailabl e Encounter Details Date Type Department Care Team (Late st Contact Info) Description 10/25/2008 Ancillary Procedure Radiology Library at [facility] [place] [address] Benito Zhang MD [facility] [place] [address] Social History Tobacco Use Types Packs/Day Years [...] Zhang MD IMG FILM LIBRARY ORD ERABLES [place], [place] documented in this encounter Visit Diagnoses Not on filedocumented in this encounter
--- OUTSIDE RECORDS SUMMARY | 2024-05-05 10:47 | XMS_ITS | Encounter Summary ---
Author Organization [facility] Address [facility] [place] [address] Care Team Providers Care Dye Stand Loader Name Role Phone Michelet Cramer MD Primary Care Provider [phone] Reason for Visit * Reason Onset Date Comments Results 07/09/2010 Encounter Details Date Type Department Care Team (Late st Contact Info) Description 07/09/2010 Telephone [place] [phone] Elizabeth Hernandez RN Results Social History Tobacco [...] on filedocumented in this encounter Care Teams Dye Stand Loader Relationship Specialty Start Date End Date Michelet Cramer MD [address] [place] [address] [place] [address] PCP - General 04/27/10 07/16/15 documented as of this encounter
--- OUTSIDE RECORDS SUMMARY | 2024-05-05 10:47 | XMS_ITS | Encounter Summary ---
Author Organization [facility] Address [address] [place] [address] Care Team Providers Care Farm Machine Operator Name Role Phone Unknown, Provider Primary Care Provider Malina neville Encounter Details Date Type Department Care Team (Late st Contact Info) Description 12/15/2023 Lab Requisition [facility] Pathology & Laboratory Medicine - [address] [id number] Outr Resulting Lab, Provider Social History Tobacco [...] Procedure Name Priority Date/Time Associated Diagnosis Comments VARICELLA IGG ANTIBODY Routine 12/15/2023 8:47 EDT documented in this encounter Results * VARICELLA IGG ANTIBODY (12/15/2023 8:47 EDT) Varicella IgG Ab Positive See Note 12/18/2023 11:17 EDT [facility] Comment:Presence of detectab le Varicella Zoster virus IgG antibodies. Blood VENOUS BLOOD / Unknown 12/15/2023 8:47 EDT 12/15/2023 16:55 EDT us Provider Outr Resulting Lab IMMUNOLOGY AND SEROL OGY ORDERABLES Final Result [facility] [address] [place] [address] documented in this encounter Visit Diagnoses Not on filedocumented in this encounter Care Teams Farm Machine Operator Relationship Specialty Start Date End Date Unknown, Provider, PCP - General 04/28/17 documented as of this encounter
--- OUTSIDE RECORDS SUMMARY | 2024-05-05 10:47 | XMS_ITS | Encounter Summary ---
Author Organization [facility] Address [facility] [place] [address] Care Team Providers Care Construction Tech Name Role Phone Michelet Cramer MD Primary Care Provider [phone] Encounter Details Date Type Department Care Team (Latest Contact Info) Description 08/31/2010 6:51 AM EDT - 08/31/2010 1:34 PM EDT Hospital En[place] [phone] Brendan Navarro MD [facility] [place] [address] Knee pain Discharge Disposition: Home Social History [...] soreness, which usually goes away in 12-24hours. [facility] - Information Same Day Surgery * [...] hours. If you have questions please call [phone] documented in this encounter Medications at Time [...] Cosmo Scott - 08/31/2010 12:03 PM EDT [facility] [place] Note Patient Name: Andrea Hagan : [id number] MR#: [id number] Case Date: 08/31/2010 Surgeon: Surgeon(s) and Role: [...] We then placed the patient in the [id number] position and advanced the scope into the [...] Operative Note Patient Name: Andrea Hagan : [id number] MR#: [id number] Case Date: 08/31/2010 Surgeon: Surgeon(s) and Role: [...] 12:44 PM EDT) Fluid Review Report ? [facility] ? Provider: ?? BRENDAN NAVARRO ? Pt. Name: ?? ANDREA HAGAN ?LEMUEL ? Acc #: ?[id number] ? Pt. ? Col Date: ?? 08/31/2010 [...] 11:10 AM EDT) Surgical Pathology Report [id number] ? Location: SDA; [facility]; The signing pathologist has (i) examined the [...] 0.8 x 0.3 cm. Tissue Description: ?? [place], cylindrical cores of bone. Sections/Proces sing: ??(T1) [...] report in rendering the final pathologic diagnosis. [facility] 08/31/2010 11:1 0 AM EDT Brendan Navarro MD PATHOLOGY/CYTOLOGY [facility] * SURGICAL PATHOLOGY REPORT (08/31/2010 11:10 AM EDT) Surgical Pathology Report ? [facility] ? Provider: ?? BRENDAN NAVARRO ? Pt. Name: ?? ANDREA HAGAN ?LEMUEL ? Acc #: ?[id number] ?Pt. ? Col Date: ?? 08/31/2010 ? [...] x 0.3 cm. ? Tissue Description: ?? [place], cylindrical cores of bone. ? Sections/Processi ng: ??(T1) following decalcification. ?? vms/SNS ? ---Clinical Information--- ? Specimen Submitted: ? A - Left knee loose bodies ? B - Left knee bone ? Clinical History/Diagnosis : ? Left knee affusion [facility] 08/31/2010 11:1 0 AM EDT Brendan Navarro MD PATHOLOGY/CYTOLOGY O RDERABLES Performing Organization Address [facility] de Phone Number OSCAR HEREDIA * Cell Count Body Fluid (08/31/2010 10:00 AM EDT) Body Fluid Source Knee, Left C ERNER MILLENNIUM Color, Fld [place] CERNER MILLENNIUM Appearance, Fld [place] CERN ER [...] FLUID DIFFERENTIAL Final report to follow. (See [id number] ) Neutrophil%: 5 Lymphocyte%: 51 Macrophage%: 38 Mesothelial%: 6 Eosinophil%: Basophil%: Other Cells%: Total cells counted on cytocentrifuge differential smear: 200 Slide sent to Pathologist for smear review. See Fluid Review Report under Hematology Reports for final interpretation. Body fluid specimen (specimen) 08/31/2010 10:00 AM EDT 08/31/2010 10:03 AM EDT Brendan Navarro MD BODY FLUIDS AND STOO LS ORDERABLES Performing Organization Address [facility] de Phone Number OSCAR HEREDIA * REFLEX LAB-ANAEROBIC CULTURE (08/31/2010 9:51 AM EDT) Anaerobic Culture ? Patient Name: ANDREA HAGAN ?? Ordered By: BRENDAN NAVARRO ? MR#: [id number] ?LOC: ??[facility] ? /Sex: ??2000 (10 years), ? Female ? PROCEDURE: Anaerobic Culture ?SOURCE: Knee Fl ? COLLECTED: 08/31/2010 09:51 ? STARTED: 08/31/2010 10:16 ? FINAL REPORT ? Final Report ? Verified:2010 14:22 ? No anaerobic organisms isolated ? PRELIMINARY REPORT ? Preliminary Report ? Verified:2010 11:51 ? No anaerobic organisms isolated to date ? [facility] Knee joint synovial fluid (specimen) 08/31/2010 9:51 AM EDT 08/31/2010 10:16 AM EDT Brendan Navarro MD MICROBIOLOGY - GENER AL ORDERABLES [facility] * BODY FLUID CULTURE (08/31/2010 9:51 AM EDT) Body Fluid Culture ? Patient Name: MELCHOR HAGANL Miguel Angel ?? Ordered By: BRENDAN NAVARRO ? MR#: [id number] ?LOC: ??[facility] ? /Sex: ??2000 (10 years), [...] ? No growth to date. ? OSCAR HARPERFRANCKIUM Knee joint synovial fluid (specimen) 08/31/2010 9:51 AM EDT 08/31/2010 10:16 AM EDT Brendan Navarro MD MICROBIOLOGY - GENER AL ORDERABLES [facility] documented in this encounter Visit Diagnoses [...] Oral, EVERY 6 HOURS PRN, Starting on e 08/31/10 at 1135, Until Mon08/31/10 at 1534, Pain, [...] Recovery, Routine 1141 (Given - Provid er: Evrin Kaur RN)1210 (Given - Provider: Ervin Kaur RN)1229 (Given - Provider: Ervin Kaur RN) hydroCODone-acetaminophen (VICODIN) 5-500 mg per tablet 1 tablet (CANCELED) 1 tablet (5 mg), Oral, EVERY 6 HOURS PRN, Starting on e 08/31/10 at 1135, Until Tu08/31/10 at 1534, Pain, Maximum dose of acetaminophen [...] knee) documented in this encounter Care Teams Construction Tech Relationship Specialty Start Date End Date Michelet Cramer MD [address] [facility] [place] [address] PCP - General 04/27/10 07/16/15 documented as of this encounter
--- OUTSIDE RECORDS SUMMARY | 2024-05-05 10:47 | XMS_ITS | Encounter Summary ---
Author Organization [facility] [place] [address] Care Team Providers Care Firer Automatic Stoker Name Role Phone Michelet Cramer MD Primary Care Provider [phone] Reason for Visit * Reason Comments Follow-up inflammatory arthrit is, ? AIDAN versus hemarthrosis of ? etiology Encounter Details Date Type Department Care Team (Late st Contact Info) Description 08/04/2010 11:00 AM EDT Office Visit [facility] [address] [place] [phone] MD Inflammatory arthritis (Primary Dx); Hemarthrosis Discharge Disposition: [...] Miscellaneous Notes * Miscellaneous - Jose Alejandro, Superintendent Production - 08/31/2010 12:38 PM EDT documented in this encounter Plan of Treatment Not on file documented as of this encounter Visit Diagnoses Diagnosis Inflammatory arthritis- Primary Unspecified inflammatory polyarthropathy Hemarthrosis Hemarthrosis, site unspecified documented in this encounter Care Teams Firer Automatic Stoker Relationship Specialty Start Date End Date Michelet Cramer MD [address] [place] [address] PCP - General 04/27/10 07/16/15 documented as of this encounter
--- OUTSIDE RECORDS SUMMARY | 2024-05-05 10:47 | XMS_ITS | Encounter Summary ---
Author Organization [facility] [place] [address] Care Team Providers Care Pig Farm Manager Name Role Phone Michelet Cramer MD Primary Care Provider [phone] Encounter Details Date Type Department Care Team (Late st Contact Info) Description 05/13/2010 10:50 AM EST - 05/13/2010 11:59 PM EST [place] [phone] Social History Tobacco Use Types Packs/Day Years Used Date Smoking Tobacco: Never Assessed Sex and Gender Information Value Date Recorded Sex Assigned at Not on file Gender Identity Not on file Sexual Orientation Not on file documented as of this encounter Plan of Treatment Not on file documented as of this encounter Visit Diagnoses Not on filedocumented in this encounter Care Teams Pig Farm Manager Relationship Specialty Start Date End Date Michelet Cramer MD [address] [place] [address] PCP - General 04/27/10 07/16/15 documented as of this encounter
--- OUTSIDE RECORDS SUMMARY | 2024-05-05 10:47 | XMS_ITS | Encounter Summary ---
Author Organization [facility] Address [facility] [place] [address] Care Team Providers Care Airline Ticket Agent Name Role Phone Michelet Cramer MD Primary Care Provider [phone] Encounter Details Date Type Department Care Team (Late st Contact Info) Description 08/19/2010 Orders Only [place] [address] Cole Brown MD [facility] [place] [address] Knee pain Social History Tobacco Use Types [...] leg documented in this encounter Care Teams Airline Ticket Agent Relationship Specialty Start Date End Date Michelet Cramer MD [address] [place] [address] PCP - General 04/27/10 07/16/15 documented as of this encounter
--- OUTSIDE RECORDS SUMMARY | 2024-05-05 10:47 | XMS_ITS | Encounter Summary ---
Author Organization [facility] Address [facility] [place] [address] Care Team Providers Care Gravure Press Set Up Operator Name Role Phone Michelet Cramer MD Primary Care Provider [phone] Reason for Visit * Reason Comments Coagulation Disorder Encounter Details Date Type Department Care Team (Latest Contact Info) Description 07/14/2010 10:13 AM EDT - 07/14/2010 11:59 PM EDT Hospital Encounter Pediatric Oncology at [facility] [place] [phone] Ana Fung MD [facility]OLOGY/[place] [address] Joint bleeding (Primary Dx) Discharge Disposition: Home [...] 99.02% 07/14 10:25 AM EDT Growth Chart: [facility] (Girls, 2- 20 Years) documented in this [...] and then lives with her father in [place] in the summer. She is currently in [...] AM EDT Joint bleeding [facility] Routine 07/14/2010 11:00 AM EDT Joint bleeding [...] unspecified documented in this encounter Care Teams Gravure Press Set Up Operator Relationship Specialty Start Date End Date Michelet Cramer MD [address] [place] [address] PCP - General 04/27/10 07/16/15 documented as of this encounter
--- OUTSIDE RECORDS SUMMARY | 2024-05-05 10:47 | XMS_ITS | Encounter Summary ---
Author Organization [facility] Address [address] [place] [address] Care Team Providers Care Fruit Harvest Machine Operator Name Role Phone Unknown, Provider Primary Care Provider Malina neville Encounter Details Date Type Department Care Team (Late st Contact Info) Description 01/05/2024 Lab Requisition [facility] Pathology & Laboratory Medicine - [facility] [address], [place] [address] Outr Resulting Lab, Provider Social History Tobacco [...] Comments CHLAMYDIA/N. GONORRHOEAE AMPLIFIED NUCLEIC ACID Routine 01/04/2024 14:20 EDT documented in this encounter Results * CHLAMYDIA/N. GONORRHOEAE AMPLIFIED NUCLEIC ACID (01/04/2024 14:20 EDT) Neisseria gonorrhoeae Result Negative Negative 01/08/2024 12:25 EDT [facility] Chlamydia trachomatis Result Negative Negative 01/08/2024 12:25 EDT [facility] Swab VAGINAL STRUCTURE / Unknown 01/04/2024 14:20 EDT 01/05/2024 17:22 EDT us Provider Outr Resulting Lab MICROBIOLOGY - GENER AL ORDERABLES Final Result [facility] [address] [place] [address] documented in this encounter Visit Diagnoses Not on filedocumented in this encounter Care Teams Fruit Harvest Machine Operator Relationship Specialty Start Date End Date Unknown, Provider, PCP - General 04/28/17 documented as of this encounter
--- OUTSIDE RECORDS SUMMARY | 2024-05-05 10:47 | XMS_ITS | Encounter Summary ---
Author Organization [facility] Address [facility] [place] [address] Care Team Providers Care District Sales Coordinator Name Role Phone Michelet Cramer MD Primary Care Provider [phone] Encounter Details Date Type Department Care Team (Latest Contact Info) Description 07/07/2010 12:25 PM EDT - 07/07/2010 11:59 PM EDT [place] [address], [address] [place] Knee effusion, [...] medial collateral ligament. Mary Ann Call MD IMG MRI ORDERABLES documented in this encounter Visit Diagnoses Diagnosis Knee effusion, left Effusion of lower leg joint documented in this encounter Care Teams District Sales Coordinator Relationship Specialty Start Date End Date Mcihelet Cramer MD [address] [place] [address] PCP - General 04/27/10 07/16/15 documented as of this encounter
--- OUTSIDE RECORDS SUMMARY | 2024-05-05 10:47 | XMS_ITS | Encounter Summary ---
Author Organization [facility] Address [address] [place] [address] Care Team Providers Care Carton Gluing Machine Operator Name Role Phone Unknown, Provider Primary Care Provider Unava ilable Encounter Details Date Type Department Care Team (Late st Contact Info) Description 05/29/2019 Lab Requisition [facility] Pathology & Laboratory Medicine - [facility] [address] [place] [address] Unknown, Provider, Social History Tobacco Use Types [...] gonorrhoeae Result Negative Negative 2019 13:29 EDT [facility] Chlamydia trachomatis Result Negative Negative 2019 13:29 EDT [facility] Urine URINE / Unknown 05/28/2019 1 5:30 EDT 05/29/2019 17:11 EDT Narrative [facility] - 2019 13:29 EDT A first catch urine specimen is acceptable for detection of Gonorrhea and Chlamydia, but might detect up to 10% fewer infections when compared with vaginal and endocervical swab samples. us Provider Unknown MICROBIOLOGY - GENERAL ORDER LES Final Result [facility] [address] [place] [address] documented in this encounter Visit Diagnoses Not on filedocumented in this encounter Care Teams Carton Gluing Machine Operator Relationship Specialty Start Date End Date Unknown, Provider, PCP - General 04/28/17 documented as of this encounter
--- OUTSIDE RECORDS SUMMARY | 2024-05-05 10:47 | XMS_ITS | Encounter Summary ---
Author Organization [facility] [place] [address] Care Team Providers Care Naphthalene Operator Name Role Phone Michelet Cramer MD Primary Care Provider Reason for Visit * Reason Comments Left Knee Pain l knee effusion Encounter Details Date Type Department Care Team (Late st Contact Info) Description 07/07/2010 11:00 AM EDT [place] [phone] Mary Ann Call MD Knee effusion, left (Primary Dx) Discharge Disposition: [...] Miscellaneous Notes * Miscellaneous - Jose Alejandro, Emergency Department Rn - 07/15/2010 5:32 AM EDT documented in [...] future Coag Studies (07/07/2010 12:00 PM EDT) Save Plasma Sample saved in [facility] Blood specimen (specimen) 07/07/2010 12:00 PM EDT 07/07/2010 12:16 PM EDT Cole Brown MD HEMATOLOGY ORDERABLE S [facility] * Factor 11 assay (07/07/2010 12:00 PM EDT) Factor XI Assay 112 50 - 150 % CERNER MILLENNIUM Blood specimen (specimen) 07/07/2010 12:00 PM EDT 07/07/2010 12:16 PM EDT Cole Brown MD HEMATOLOGY ORDERABLE S Performing Organization Address City/[facility]/ZIP Co de Phone Number CERNER MILLENNIUM * Factor 9 assay (07/07/2010 12:00 PM EDT) Factor IX Assay 148 50 - 150 % CERNER MILLENNIUM Blood specimen (specimen) 07/07/2010 12:00 PM EDT 07/07/2010 12:16 PM EDT Cole Brown MD HEMATOLOGY ORDERABLE S CERNER MILLENNIUM * (ABNORMAL) Factor 8 assay (07/07/2010 12:00 PM EDT) Factor VIII Assay 187(H) 50 - 150 % CERNER MILLENNIUM Blood specimen (specimen) 07/07/2010 12:00 PM EDT 07/07/2010 12:16 PM EDT Cole Brown MD HEMATOLOGY ORDERABLE S CERNER MILLENNIUM * Factor 13-[employer] (07/07/2010 12:00 PM EDT) FACTOR 13 125 60 - 150 % CERNER MILLENNIUM Comment: UNIT: % REFRENCE RANGE: 60-150 Test performed by [employer] [address] [place] [address], [facility], ??[place] [address] Blood specimen (specimen) 07/07/2010 12:00 PM EDT 07/07/2010 12:16 PM EDT Cole Brown MD LAB SEND OUT ORDERAB LES Performing Organization Address [facility] Co de Phone Number [facility] * Von Willebrand Factor Antigen (07/07/2010 12:00 PM EDT) von Willebrand Factor Antigen 176 % [facility] vWF Anti Interp ABO blood group has a significant influence on vWF:Ag levels in normal individuals*. ??Type A individuals have a mean level of 106% (range: 48-234% 2SD). ??* Marla ALVAREZ, et. al. ??The Effect of ABO Blood Group on the Diagnosis of von Willebrand Disease. ??Blood, 1987; 69(6) : 1418-0799 [facility] Blood specimen (specimen) 07/07/2010 12:00 PM EDT 07/07/2010 12:16 PM EDT Cole Brown MD HEMATOLOGY ORDERABLE S Performing Organization Address [facility] de Phone Number [facility] * (ABNORMAL) Von Willebrand Factor Activity (07/07/2010 12:00 PM EDT) Von Willebrand Factor Assay 176(H) 50 - 150 % activity [facility] Blood specimen (specimen) 07/07/2010 12:00 PM EDT 07/07/2010 12:16 PM EDT Cole Brown MD HEMATOLOGY ORDERABLE S Performing Organization Address [facility] de Phone Number [facility] * Fibrinogen (07/07/2010 12:00 PM EDT) Fibrinogen 432 200 - 470 mg/dL [facility] Blood specimen (specimen) 07/07/2010 12:00 PM EDT 07/07/2010 12:16 PM EDT Cole Brown MD HEMATOLOGY ORDERABLE S Performing Organization Address [facility] Co de Phone Number [facility] * APTT (07/07/2010 12:00 PM EDT) Partial Thromboplastin Time 34 25 - 37 sec MADDIDOUG HEREDIA Comment: Recommended therapeutic PTT range for full dose unfractionated heparin is 80-114 seconds. Blood specimen (specimen) 07/07/2010 12:00 PM EDT 07/07/2010 12:16 PM EDT Cole Brown MD HEMATOLOGY ORDERABLE S Performing Organization Address City/[facility] Co de Phone Number OSCAR HEREDIA * Protime-INR (07/07/2010 12:00 PM EDT) Prothrombin Time 14.9 12.7 - 16.1 sec MADDIDOUG HEREDIA Comment: [facility] Transfusion Committee Guidelines: INR less than 2.0, PTT less than OR equal to 43.5 seconds, or Fibrinogen greater than or equal to 100 mg/dl indicate adequate procoagulant activity for hemostasis in patients without underlying bleeding disorders. International Normalization Ratio 1.1 0.9 - 1.1 [facility] Blood specimen (specimen) 07/07/2010 12:00 PM EDT 07/07/2010 12:16 PM EDT Cole Brown MD HEMATOLOGY ORDERABLE S Performing Organization Address City/[facility] Co de Phone Number OSCAR HEREDIA documented in this encounter Visit Diagnoses Diagnosis Knee effusion, left- Primary Effusion of lower leg joint documented in this encounter Care Teams Naphthalene Operator Relationship Specialty Start Date End Date Michelet Cramer MD [address] [place] [address] PCP - General 04/27/10 07/16/15 documented as of this encounter
--- OUTSIDE RECORDS SUMMARY | 2024-05-05 10:47 | XMS_ITS | Encounter Summary ---
Author Organization [facility] Address [address] [place] [address] Care Team Providers Care Perch Machine Inspector Name Role Phone Unavailable Primary Care Provider Unavailabl e Encounter Details Date Type Department Care Team (Latest Contact Info) Description 04/27/2017 15:24 EST - 04/27/2017 23:59 EST Hospital Encounter [address] [address] Unknown, Provider, MD Discharge Disposition: Home or Self Care Social [...] Code Departure Means Destination Home or Self Snf documented in this encounter Plan of Treatment Not on file documented as of this encounter Visit Diagnoses Not on filedocumented in this encounter
--- OUTSIDE RECORDS SUMMARY | 2024-05-05 10:47 | XMS_ITS | Encounter Summary ---
Author Organization [facility] Address [address] [place] [address] Care Team Providers Care Motor Assembler Name Role Phone Unknown, Provider Primary Care Provider Malina ilable Encounter Details Date Type Department Care Team (Late st Contact Info) Description 01/01/2020 Lab Requisition [facility] Pathology & Laboratory Medicine - [facility] [address] [place] [address] Outr Resulting Lab, Provider Social History Tobacco [...] gonorrhoeae Result Negative Negative 01/02/2020 15:12 EDT [facility] Chlamydia trachomatis Result Negative Negative 01/02/2020 15:12 EDT [facility] Swab ENTIRE WALL OF CERVIX / Unknown 12/31/2019 15:00 EDT 01/01/2020 20:50 EDT us Provider Outr Resulting Lab MICROBIOLOGY - GENER AL ORDERABLES Final Result [facility] [address] [place] [address] documented in this encounter Visit Diagnoses Not on filedocumented in this encounter Care Teams Motor Assembler Relationship Specialty Start Date End Date Unknown, Provider, PCP - General 04/28/17 documented as of this encounter
--- OUTSIDE RECORDS SUMMARY | 2024-05-05 10:47 | XMS_ITS | Encounter Summary ---
Author Organization [facility] Address [facility] [place] [address] Care Team Providers Care Rn Clinical Trials Name Role Phone Michelet Cramer MD Primary Care Provider [phone] Encounter Details Date Type Department Care Team (Late st Contact Info) Description 05/13/2010 1:20 PM EST Follow-[place] [phone] Cole Brown MD [facility] [place] [address] Discharge Disposition: Home Social History Tobacco Use [...] filedocumented in this encounter Care Teams Rn Clinical Trials Relationship Specialty Start Date End Date Michelet Cramer MD [address] [place] [address] PCP - General 04/27/10 07/16/15 documented as of this encounter
--- OUTSIDE RECORDS SUMMARY | 2024-05-05 10:47 | XMS_ITS | Encounter Summary ---
Author Organization [facility] [place] [address] Care Team Providers Care Manual Training Teacher Name Role Phone Michelet Cramer MD Primary Care Provider [phone] Encounter Details Date Type Department Care Team (Late st Contact Info) Description 07/07/2010 Orders Only Orthopaedics at [facility] [place] [address] Parveen Obrien MD Knee effusion, left (Primary Dx) Social History [...] joint documented in this encounter Care Teams Manual Training Teacher Relationship Specialty Start Date End Date Michelet Cramer MD [address] [place] [address] PCP - General 04/27/10 07/16/15 documented as of this encounter
--- NOTE | 2024-05-05 11:14 | ED.GENADUL_ITS ---
Discharge Plan Disposition Patient Disposition: Home Condition: Good Discharge Details Chief Complaint: Orthopedic Clinical Impression: Aftercare for cast or splint check or change Primary Care Provider: Unknown,Unknown ED Provider: Mauri Friedman Home Meds and New Rx's Prescriptions: No Action pantoprazole [Protonix] 40 mg tablet,delayed release (DR/EC) 40 mg PO DAILY Qty: 30 5RF (DME) blood-glucose meter [Blood Glucose Monitoring] Kit See Rx Instructions .ROUTE .MEDSUPPLY Qty: 1 0RF Rx Instructions: As directed (DME) Blood Glucose Test Strip See Rx Instructions .ROUTE .MEDSUPPLY Qty: 50 6RF Rx Instructions: Use 4x daily with glucometer (DME) lancets Misc See Rx Instructions .ROUTE .MEDSUPPLY Qty: 100 0RF Rx Instructions: As directed 4x daily Liletta 20.4 mcg/24 hr (8 yrs) 52 mg intrauterine device 1 device intrauterine ONCE Rx Instructions: as a single dose Discharge Instructions Additional Instructions: At this time we have been able to change your bandage/splint. This bulky Fontenot technique should offer some additional relief. Please follow-up closely with your employee relations specialist tomorrow. Please continue to take your NSAID therapy and pain pills as needed for pain. If you notice any worsening of your symptoms, or any new symptoms such as change in color for your skin, vomiting, diarrhea, fever, chills, shortness of breath, chest pain, numbness, weakness, or fainting , please return immediately to the emergency department for reevaluation. Please follow up with your primary care provider as soon as possible for reassessment and reevaluation. As always, it was a pleasure participating in your medical care today. HPI General Date/Time Provider Initiated Documentation: 05/05/24 10:36 . HPI Narrative: This is a 23-year-old female with a past medical history of a recent trimalar fracture in her left lower extremity. This occurred on 05/03/2024, she was seen at [facility] and managed appropriately with reduction, splinting and arrangement of prompt orthopedic follow-up which will occur tomorrow on Monday. Patient does have some narcotic pain pills at home for pain. She presents today because of atypical stabbing pain noted on her calcaneus. Patient states that over the last 12 to 24 hours she has developed severe pain which feels like a stabbing pressure-like sensation on the back of her foot. She denies any vice school custodian sensation. She states that it feels like someone is trying to saw my foot off. She has tried repositioning, NSAIDs and pain pills which have not resolved the pain, the pain has been gradually worsening over the last few hours. She denies any other falls or trauma aside for the initial inciting 1. No other complaints at this time. She denies any numbness or tingling in her toes or foot. She denies any change in color for her foot or toes. Related Data Home Medications ?Medication ?Instructions ?Recorded ?Confirmed pantoprazole 40 mg tablet,delayed 40 mg PO DAILY #30 tabs 01/04/24 05/05/24 release (Protonix) blood sugar diagnostic (Blood #50 ea 02/05/24 05/05/24 Glucose Test strips) blood-glucose meter (Blood Glucose #1 ea 02/05/24 05/05/24 Monitoring kit) lancets #100 ea 02/05/24 05/05/24 levonorgestrel 20.4 mcg/24 hr (up 1 device intrauterine ONCE 04/18/24 05/05/24 to 8 yrs) 52 mg intrauterine device (Liletta) Previous Rx's ?Medication ?Instructions ?Recorded pantoprazole 40 mg tablet,delayed 40 mg PO DAILY #30 tabs 01/04/24 release (Protonix) blood sugar diagnostic (Blood #50 ea 02/05/24 Glucose Test strips) blood-glucose meter (Blood Glucose #1 ea 02/05/24 Monitoring kit) lancets #100 ea 02/05/24 Allergies Allergy/AdvReac Type Severity Reaction Status Date / Time latex Allergy Intermediate HIVES Verified 05/05/24 10:37 Sulfa (Sulfonamide Allergy Intermediate Hives Verified 05/05/24 10:37 Antibiotics) amoxicillin Allergy Anaphylaxis Verified 05/05/24 10:37 jalapenos Allergy Severe Other (See Uncoded 05/05/24 10:37 Comment) almonds Allergy Intermediate lips swell Uncoded 05/05/24 10:37 General Stated Complaint: Orthopedic MANI: 3 Exam Narrative Exam Narrative: 1.Const: Well-nourished, Well-developed, appearing stated age 2.Eyes: PERRL, no conjunctival injection, and symmetrical lids. 3.ENT: Atraumatic external nose and ears. Moist MM. Neck: Symmetric, trachea midline, No thyromegaly. 4.CVS: +S1/S2, Peripheral pulses 2+ and equal in all extremities. Brisk capillary refill in all extremities. 5.RESP: Unlabored respiratory effort. Clear to auscultation bilaterally. No wheezes rales or rhonchi 6.GI: Soft, Nontender/Nondistended, No hepatosplenomegaly. No guarding or rebound. 7.MSK: Patient's right lower extremity demonstrated a splinted foot with a posterior slab and U-shaped stirrup. These were removed for adequate evaluation. Single layer of bulky dressing was noted, and nylon stocking was present. After removal of the splint, foot demonstrated bruising which was appropriate around the medial lateral component of the ankle. Dorsalis pedis and posterior tibial pulses were +2. Brisk capillary refill for all toes, normal sensation throughout the foot including the toes to both light touch, pinprick, and temperature. No ropiness or vascular tenderness of the knee or proximal or distal thigh. 8.Skin: Warm, Dry. No rashes or lesions. 9.Neuro: can filler II-XII grossly intact. Sensation grossly intact, no focal neurologic deficits. 10.Psych: (AAO) x3. Appropriate mood and affect Course Vital Signs Vital signs: Vital Signs Temperature 36.8 C 05/05/24 10:28 Pulse 101 H 05/05/24 10:28 Respiratory Rate 16 05/05/24 10:28 Blood Pressure 116/83 05/05/24 10:28 Pulse Oximetry 100 05/05/24 10:28 Temperature 36.8 C 05/05/24 10:28 Temperature Source Oral 05/05/24 10:28 Pulse 101 H 05/05/24 10:28 Respiratory Rate 16 05/05/24 10:28 Blood Pressure 116/83 05/05/24 10:28 Blood Pressure Position Sitting 05/05/24 10:28 Pulse Oximetry 100 05/05/24 10:28 Oxygen Delivery Method Room Air 05/05/24 10:28 Oxygen Flow Rate 0 05/05/24 10:28 Pain Level 7 05/05/24 10:28 Procedure Orthopedic Splinting/Casting Date of Procedure: 05/05/24 Time of procedure: 11:24 Provider that performed the procedure: Mauri Friedman Standard Time Out Performed: Yes Patient Consented: Verbally Side: right Lower Extremity Injury Location: ankle and foot Lower Extremity Immobilizer: posterior splint and stirrup splint Weight bearing status: non-weight bearing as tolerated Medical Decision Making This is a 23-year-old female with a past medical history of a recent trimalar fracture in her left lower extremity. This occurred on 05/03/2024, she was seen at [facility] and managed appropriately with reduction, splinting and arrangement of prompt orthopedic follow-up which will occur tomorrow on Monday. Patient does have some narcotic pain pills at home for pain. She presents today because of atypical stabbing pain noted on her calcaneus. Patient states that over the last 12 to 24 hours she has developed severe pain which feels like a stabbing pressure-like sensation on the back of her foot. She denies any vice school custodian sensation. She states that it feels like someone is trying to saw my foot off. She has tried repositioning, NSAIDs and pain pills which have not resolved the pain, the pain has been gradually worsening over the last few hours. She denies any other falls or trauma aside for the initial inciting 1. No other complaints at this time. She denies any numbness or tingling in her toes or foot. She denies any change in color for her foot or toes. Patient's right lower extremity demonstrated a splinted foot with a posterior slab and U-shaped stirrup. These were removed for adequate evaluation. Single layer of bulky dressing was noted, and nylon stocking was present. The splint was noted to be quite tight due to its natural formations. After removal of the splint, foot demonstrated bruising which was appropriate around the medial lateral component of the ankle. Dorsalis pedis and posterior tibial pulses were +2. Brisk capillary refill for all toes, normal sensation throughout the foot including the toes to both light touch, pinprick, and temperature. No ropiness or vascular tenderness of the knee or proximal or distal thigh. There is no evidence of pallor, paresthesias, poikilothermia, or other abnormalities to suggest compartment syndrome. Patient demonstrates an excellent neurovascular exam. There were components of the splint which were undulating and rehabbed over the areas where the patient was having her main pain which included the calcaneus, and medial aspect of the ankle. No evidence of skin breakdown or significant rash or large bulla. No evidence of new dislocation or new trauma. I suspect that the tightness of the splint, combined with postprocedural swelling and the focal areas of contact with the cause of her pain. As soon as the splint was removed the pain/new pain that she was feeling completely resolved. Her chronic postfracture pain was still obviously present, however the focal acute component has now resolved. Because of the nature of the pain, and the previous splint being notably tight we transition the patient's splint to a bulky Fontenot format, we kept the original posterior slab, but because of the nature of the bulky Fontenot we did require new splinting for the U-shaped stirrup. This was performed and the patient tolerated it well. Her pain has resolved, and repeat exam post splinting continues to demonstrate brisk capillary refill, normal sensation, and an excellent neurovascular exam. With no evidence of compartment syndrome, neurovascular compromise, repeat dislocation or other signs of trauma and with a now stable splint with the pain resolved I do feel that the patient is safe for discharge with close follow-up with her employee relations specialist on Monday. Discussed red flags for which to return. I have extensively reviewed the treatment plan and discharge instructions with the patient and their family. I have addressed all patient concerns at this time. The patient and family was made aware of what symptoms to monitor for that would warrant a return to the emergency department. Discussed the plan with the patient and family, they demonstrate verbal understanding and agreement with our assessment and plan at this time. The documentation in this chart was dictated using [employer] dictation software. Please excuse any dictation errors. 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 Discharged home day #1 stable. Discharge hemoglobin 9.3. Depressed mood (04/20/16) 04/02/19. restart SSRI Anxiety (04/20/16) restart SSRI. 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 Increased symptoms with polyarthralgia spring 2017. Had f/u with rheum at [facility]. ? AIDAN vs RA. Allergy to sulfa drugs Surgical History H/O dilation and curettage Hx of section 12/06/22. pLTCS for twin gestation at 37w. Single layer closure. History of tonsillectomy and adenoidectomy 2018 Arthroscopy L knee - effusion, bloody 08/28, 11/28, & 1 more R knee 2011, Family History Mother Mental disorder depression Asthma Sister Asthma Other Diabetes many materanl relatives Hyperlipidemia maternal cousin Mental disorder maternal relatvies with depresssion Attention deficit hyperactivity disorder maternal uncles Other Diabetes many paternal relatives Mental disorder pat side with depression Grandfather , [place] at age 44. Heart disease Father Essential hypertension Mental disorder DEPRESSION OR ANXIETY Myocardial infarction Social History Smoking/Tobacco Use Status: Current every day Tobacco Type: e-cigarettes Tobacco: How many years used: 9 Quit status: considering quitting Smoking risk assessment performed?: Yes Alcohol Intake: current Alcohol Intake frequency: a few times a week Substance use type: marijuana Housing: apartment Do you feel safe at home: Yes Do you feel safe in your relationship?: Yes Additional Social history: just moved from [place] Female Reproductive History Menstrual control method: none History History 4 Para 3 Hx # Term Pregnancies 2 Multiple births 1 Hx # Pregnancies 2 Ectopic pregnancies AB induced Hx Number of Living Children 4 AB spontaneous 1 Past Pregnancies Del. Date GA/Weeks # Preg Succ Route Wgt Sex Labor Lgth Anesth esia Location Prov Complic 03/27/19 01/25/22 39 No Yes vaginal 3175.147 g Female [facility], 12/06/22 36 Yes Yes 2494.758 g Male [place] 12/06/22 36 Yes Yes 3061.748 g Female [facility] [place] 02/25/24 39 No Yes vaginal 3231.846 g Male [facility] Delivery Date: 03/27/19 Last Updated by: Yari Villalobos LPN incomplete spontaneous AB with hemorrhage Delivery Date: 01/25/22 Last Updated by: YOLY Moser- pt reports hemmorhage Delivery Date: 12/06/22 Last Updated by: Kera Bauer RN José Antonio Delivery Date: 12/06/22 Last Updated by: YOLY Moser Delivery Date: 02/25/24 Last Updated by: Winsome Pugh MD Induced - readmit PPD#2 with endometritis, Group A strep, 8 day stay
[2024-05-05] MEDS: MORPHine IR 15 MG TAB, 4 TABS/BTL PO (12:10)
== END 2024-05-05 12:37 | disposition home or self-care (01) ==
PROVIDERS: Emergency Provider Student in an Organized Health Care Education/Training Program
DX: S82.852A Displaced trimalleolar fracture of left lower leg, initial encounter for closed fracture (principal); X58.XXXA Exposure to other specified factors, initial encounter
CPT/HCPCS: 29515